=== PATIENT | female | born 1965 | race Caucasian/White ===

== ENCOUNTER 2017-05-25 11:42 | Emergency (ER) | payer OTHER, MEDICARE, SELFPAY ==
[2017-05-25 11:50] VITALS: BP 134/88; PULSE 102; RESP 20; TEMP 37.1; O2SAT 94; BMI 44.8
[2017-05-25 11:56] LABS: POC Glucose,Bedside 520 mg/dL
--- NOTE | 2017-05-25 11:58 | XR_ITS ---
XR chest 2V HISTORY: Productive cough, elevated glucose ITS.REASON: ELEVATED GLUCOSE ORDERING PHYSICIAN: Serina Phillips MD PATIENT AGE: 52 years COMPARISON: 02/26/2015 FINDINGS: The cardiomediastinal silhouette and pulmonary vascularity are within normal limits. The lungs are clear without infiltrates, suspicious nodules, or pleural effusions. There is been prior injury cervical disc fusion with bone plate present over the lower cervical spine. On the lateral view there is a metallic density overlying the mid aspect of the chest at the level the diaphragm which may be due to overlying artifact. Please correlate clinically No acute bony abnormalities. IMPRESSION: No acute finding
[2017-05-25 12:29] LABS: Glucose 576 mg/dL (74-106)
[2017-05-25 12:44] LABS: Microscopic, Urine URINE MICROSCOPIC (MICROSCOPIC)
[2017-05-25 12:47] LABS: Basophils % 0.5 % (0.1-2.0); Eosinophils # 0.2 K/mm3 (0.0-0.4); Eosinophils % 2.1 % (0.1-12.0); Hemoglobin 15.3 g/dL (12.2-16.2); Lymphocytes % 32.8 K/mm3 (10-50); Mean Corpuscular Hemoglobin 29.7 pg (27.0-31.2); Mean Corpuscular Volume 92.8 fl (81-99); Mean Platelet Volume 7.6 fl (7.4-10.4); Monocytes # 0.6 K/mm3 (0.1-1.0); Monocytes % 6.6 % (1.7-9.3); Neutrophils # 5.3 K/mm3 (1.8-7.8); Platelet Count 272 K/mm3 (142-424); Red Blood Count 5.17 M/mm3 (4.20-5.40); Red Cell Distribution Width 13.6 % (11.5-17.5); White Blood Count 9.2 K/mm3 (4.8-10.8)
[2017-05-25 12:47] LABS: Acetone, Serum (Rapid) Small (None Detect)
[2017-05-25 12:50] LABS: Appearance,Urine CLEAR (Clear); Bilirubin,Urine Negative (Negative); Blood, Urine TRACE-L (Negative); Color,Urine YELLOW (Yellow); Glucose,Urine (UA) 3+ (Negative); Ketones,Urine Negative (Negative); Leukocyte Esterase,Urine Negative (Negative); Nitrate,Urine Negative (Negative); Protein,Urine Negative (Negative); Specific Gravity, Urine <= 1.005 (1.005-1.030); Urobilinogen,Urine 0.2 EU/dl (0.2)
[2017-05-25 12:56] LABS: Anion Gap 16.3 mEq/L (5-15); Blood Urea Nitrogen 23 mg/dL (7-18); Calcium 10.1 mg/dL (8.5-10.1); Carbon Dioxide 25 mmol/L (21.0-32.0); Chloride 91 mmol/L (98-107); Creatinine Clearance Estimated 48 mg/ml (0-300); Creatinine,Serum 1.36 mg/dL (0.55-1.02); Estimated Glomerular Filt Rate 41 ml/min (>60); GFR (African American) 49 ML/MIN (>60); Potassium 4.3 mmoL/L (3.5-5.1); Sodium 128 mmol/L (136-145)
[2017-05-25 12:57] LABS: Alanine Aminotransferase 27 U/L (12-78); Albumin Level 4.1 gm/dL (3.4-5.0); Alkaline Phosphatase 134 U/L (46-116); Aspartate Amino Transferase 20 U/L (15-37); Bilirubin,Total 0.4 mg/dL (0.2-1.0); Creatine Kinase MB 0.6 mg/ml (0.0-3.6); Globulin 4.3 gm/dl (1.3-3.2); Total Protein,Serum 8.4 gm/dL (6.4-8.2); Troponin I < 0.02 ng/ml (0.00-0.06)
[2017-05-25 12:58] LABS: CKMB Relative Index 1.2 U/L (0-4.0); Creatine Kinase 50 U/L (26-140)
[2017-05-25 13:14] LABS: Bacteria,Urine Trace /lpf; RBC,Urine Occasional #/hpf (0-3); Squamous Epithelial Cell,Urine Occasional #/hpf (0-5)
--- NOTE | 2017-05-25 14:44 | PC.NURSE ---
Finger stick glucose 418. advised of result.
[2017-05-25 14:47] LABS: POC Glucose,Bedside 408 mg/dL
--- NOTE | 2017-05-25 15:04 | HMH.EDGENADL ---
ED Disposition Clinical Impression: Hyperglycemia due to type 2 diabetes mellitus, Influenza A Disposition: Home, Self-Care Condition on Discharge: Good Additional Instructions: Push fluids, continue your Januvia, see your family practitioner in one day for recheck Referrals: Shikha Grimm APRN [Primary Care Provider] - - Critical Care Critical Care Time: No Attestation: On 05/25/17, the high probability of a clinically significant, sudden or life threatening deterioration of the following system(s) required my full and direct attention, intervention and personal management. The time I documented below is in addition to time spent performing reported procedures but includes the following listed in this critical care notation. Medical Decision Making Vital Signs: 05/25/17 11:50 Temperature 98.8 F Temperature Source Oral Pulse Rate [Right Radial] 102 H Respiratory Rate 20 Blood Pressure [Right Arm] 134/88 Blood Pressure Mean [Right Arm] 103 Blood Pressure Source [Right Arm] Automatic Cuff Blood Pressure Position [Right Arm] Sitting 02 Sat by Pulse Oximetry 94 L Oxygen Delivery Method Room Air - Lab Data Lab Results 05/25/17 11:47: POC Glucose 520 05/25/17 11:53: WBC 9.2, RBC 5.17, Hgb 15.3, Hct 48.0 H, MCV 92.8, MCH 29.7, MCHC 32.0, RDW 13.6, Plt Count 272, MPV 7.6, Neut % (Auto) 58.0, Lymph % (Auto) 32.8, [place] % (Auto) 6.6, Eos % (Auto) 2.1, Baso % (Auto) 0.5, Neut # (Auto) 5.3, Lymph # (Auto) 3.0, [place] # (Auto) 0.6, Eos # (Auto) 0.2, Baso # (Auto) 0.0 05/25/17 11:56: Sodium 128 L, Potassium 4.3, Chloride 91 L, Carbon Dioxide 25, Anion Gap 16.3 H, BUN 23 H, Creatinine 1.36 H, Estimated Creat Clear 48, Estimated GFR 41 L, Est GFR ( Amer) 49 L, Glucose 576 H*, Fasting Glucose Cancelled, Calcium 10.1, Total Bilirubin 0.4, AST 20, ALT 27, Alkaline Phosphatase 134 H, Total Creatine Kinase 50, CK-MB (CK-2) 0.6, CK-MB (CK-2) Rel Index 1.2, Troponin I < 0.02, Total Protein 8.4 H, Albumin 4.1, Globulin 4.3 H, Albumin/Globulin Ratio 1.0 L, Acetone Level Small 05/25/17 12:30: Urine Color Yellow, Urine Appearance Clear, Urine pH 6.0, Ur Specific [place] <= 1.005, Urine Protein Negative, Urine Glucose (UA) 3+, Urine Ketones Negative, Urine Blood Trace-l, Urine Nitrate Negative, Urine Bilirubin Negative, Urine Urobilinogen 0.2, Ur Leukocyte Esterase Negative, Urine RBC Occasional, Ur Squamous Epith Cells Occasional, Urine Bacteria Trace 05/25/17 13:50: Influenza Type A Ag Positive A, Influenza Type B Ag Negative 05/25/17 14:37: POC Glucose 408 Result diagrams: 05/25/17 11:53 05/25/17 11:56 Orders (Tests/Meds): ED MEDICATIONS Generic Name Dose Route Start Last Admin Trade Name Freq PRN Reason Stop Dose Admin Sodium Chloride 10 ml 05/25/17 11:55 Saline Flush 10ml Syringe IV 06/24/17 11:54 NEEDED PRN Maintain IV Site Discontinued Medications Generic Name Dose Route Start Last Admin Trade Name Freq PRN Reason Stop Dose Admin Sodium Chloride 1,000 mls @ 999 mls/hr 05/25/17 12:15 05/25/17 12:07 Sod Chloride 0.9% 1000ml Bag IV 05/25/17 13:15 999 mls/hr .Q1H1M ASCENCION Administration ORDERS Category Date Time Status POC Glucose,Bedside Stat Lab 05/25/17 14:42 Ordered - Radiology Data #1 Image(s): Chest Image Reviewed: Yes I reviewed the patient's radiology results, Yes I have reviewed radiologist's interpretation Preliminary Findings: Normal/NAD, Normal Lung Inflation [place] - [place] Inquiry Pt receiving controlled substance: No Medical Decision Making Narrative: Aggressive IVF, patient stable, recheck FSBS is in the low 400's; bicarb normal so will d/c even though she has small ketones. Source of fever is influenza A; sx x five days so not a candidate for Tamiflu, september f/u PCP. General Adult HPI - General Chief complaint: Hyper/Hypoglycemia Stated complaint: BLOOD SUGAR HIGH Time Seen by Provider: 05/25/17 12:35 Mode of Arrival: Ambulatory
--- NOTE | 2017-05-25 15:07 | ED_ITS ---
ED Disposition Clinical Impression: Hyperglycemia due to type 2 diabetes mellitus, Influenza A Disposition: Home, Self-Care Condition on Discharge: Good Additional Instructions: Push fluids, continue your Januvia, see your family practitioner in one day for recheck Referrals: Shikha Grimm APRN [Primary Care Provider] - - Critical Care Critical Care Time: No Attestation: On 05/25/17, the high probability of a clinically significant, sudden or life threatening deterioration of the following system(s) required my full and direct attention, intervention and personal management. The time I documented below is in addition to time spent performing reported procedures but includes the following listed in this critical care notation. Medical Decision Making Vital Signs: 05/25/17 11:50 Temperature 98.8 F Temperature Source Oral Pulse Rate [Right Radial] 102 H Respiratory Rate 20 Blood Pressure [Right Arm] 134/88 Blood Pressure Mean [Right Arm] 103 Blood Pressure Source [Right Arm] Automatic Cuff Blood Pressure Position [Right Arm] Sitting 02 Sat by Pulse Oximetry 94 L Oxygen Delivery Method Room Air - Lab Data Lab Results 05/25/17 11:47: POC Glucose 520 05/25/17 11:53: WBC 9.2, RBC 5.17, Hgb 15.3, Hct 48.0 H, MCV 92.8, MCH 29.7, MCHC 32.0, RDW 13.6, Plt Count 272, MPV 7.6, Neut % (Auto) 58.0, Lymph % (Auto) 32.8, [place] % (Auto) 6.6, Eos % (Auto) 2.1, Baso % (Auto) 0.5, Neut # (Auto) 5.3 , Lymph # (Auto) 3.0, [place] # (Auto) 0.6, Eos # (Auto) 0.2, Baso # (Auto) 0.0 05/25/17 11:56: Sodium 128 L, Potassium 4.3, Chloride 91 L, Carbon Dioxide 25, Anion Gap 16.3 H, BUN 23 H, Creatinine 1.36 H, Estimated Creat Clear 48, Estimated GFR 41 L, Est GFR ( Amer) 49 L, Glucose 576 H*, Fasting Glucose Cancelled, Calcium 10.1, Total Bilirubin 0.4, AST 20, ALT 27, Alkaline Phosphatase 134 H, Total Creatine Kinase 50, CK-MB (CK-2) 0.6, CK-MB (CK-2) Rel Index 1.2, Troponin I < 0.02, Total Protein 8.4 H, Albumin 4.1, Globulin 4.3 H, Albumin/Globulin Ratio 1.0 L, Acetone Level Small 05/25/17 12:30: Urine Color Yellow, Urine Appearance Clear, Urine pH 6.0, Ur Specific [place] <= 1.005, Urine Protein Negative, Urine Glucose (UA) 3+, Urine Ketones Negative, Urine Blood Trace-l, Urine Nitrate Negative, Urine Bilirubin Negative, Urine Urobilinogen 0.2, Ur Leukocyte Esterase Negative, Urine RBC Occasional, Ur Squamous Epith Cells Occasional, Urine Bacteria Trace 05/25/17 13:50: Influenza Type A Ag Positive A, Influenza Type B Ag Negative 05/25/17 14:37: POC Glucose 408 Result diagrams: 05/25/17 11:53 05/25/17 11:56 Orders (Tests/Meds): ED MEDICATIONS Generic Name Dose Route Start Last Admin Trade Name Freq PRN Reason Stop Dose Admin Sodium Chloride 10 ml 05/25/17 11:55 Saline Flush 10ml Syringe IV 06/24/17 11:54 NEEDED PRN Maintain IV Site Discontinued Medications Generic Name Dose Route Start Last Admin Trade Name Freq PRN Reason Stop Dose Admin Sodium Chloride 1,000 mls @ 999 mls/hr 05/25/17 12:15 05/25/17 12:07 Sod Chloride 0.9% 1000ml Bag IV 05/25/17 13:15 999 mls/hr .Q1H1M ASCENCION Administration ORDERS Category Date Time Status POC Glucose,Bedside Stat Lab 05/25/17 14:42 Ordered - Radiology Data #1 Image(s): Chest Image Reviewed: Yes I reviewed the pat
[2017-05-25 15:40] VITALS: BP 138/68; PULSE 82; RESP 18; TEMP 36.9; O2SAT 97
== END 2017-05-25 15:42 | disposition home or self-care (01) ==
PROVIDERS: Emergency Provider Emergency Medicine; Family Provider Nurse Practitioner Family; PCP Nurse Practitioner Family
DX: E11.65 Type 2 diabetes mellitus with hyperglycemia (principal); Z79.84 Long term (current) use of oral hypoglycemic drugs; J10.1 Influenza due to other identified influenza virus with other respiratory manifestations; M06.9 Rheumatoid arthritis, unspecified; Z79.899 Other long term (current) drug therapy
CPT/HCPCS: 71046; 80053; 81001; 82009; 82550; 82553; 82962; 84484; 85025; 87275; 87276; 99284

== ENCOUNTER → 2017-08-07 10:40 | Outpatient (CLI) | payer OTHER, MEDICARE, SELFPAY ==
--- NOTE | 2017-08-07 10:51 | XR_ITS ---
XR ankle LT min 3V COMPARISON: None HISTORY: Left ankle pain TECHNIQUE: AP lateral and oblique views FINDINGS: There is mild narrowing of the ankle mortise medially. There is mild spurring of the tip of the lateral malleolus. There is a moderate-sized os trigonum noted. There are prominent spurs of the calcaneus both at the insertion of Achilles tendon and lateral tendon. There is [id number] generalized soft tissue swelling about the ankle. IMPRESSION: Soft tissue swelling and mild posttraumatic and/or arthritic changes of the ankle joint, no acute fracture seen
== END ==
PROVIDERS: PCP Internal Medicine Adolescent Medicine; Visit Provider Nurse Practitioner Family
DX: M25.571 Pain in right ankle and joints of right foot (principal); G89.29 Other chronic pain
CPT/HCPCS: 73610

== ENCOUNTER → 2017-08-08 07:57 | Outpatient (CLI) | payer OTHER, MEDICARE, SELFPAY ==
[2017-08-08 09:02] LABS: Basophils # 0.1 K/mm3 (0-0.2); Basophils % 0.9 % (0.1-2.0); Eosinophils # 0.6 K/mm3 (0.0-0.4); Eosinophils % 8.2 % (0.1-12.0); Hematocrit 43.9 % (37.0-47.0); Hemoglobin 14.3 g/dL (12.2-16.2); Lymphocytes # 1.9 K/mm3 (0.7-4.5); Lymphocytes % 26.6 K/mm3 (10-50); Mean Corpuscular HGB Conc 32.7 g/dL (31.8-35.4); Mean Corpuscular Hemoglobin 30.1 pg (27.0-31.2); Mean Corpuscular Volume 91.9 fl (81-99); Mean Platelet Volume 7.1 fl (7.4-10.4); Monocytes # 0.3 K/mm3 (0.1-1.0); Neutrophils # 4.3 K/mm3 (1.8-7.8); Neutrophils % 60.3 % (37.0-80.0); Platelet Count 311 K/mm3 (142-424); Red Blood Count 4.77 M/mm3 (4.20-5.40); Red Cell Distribution Width 13.9 % (11.5-17.5); White Blood Count 7.2 K/mm3 (4.8-10.8)
[2017-08-08 09:07] LABS: Alanine Aminotransferase 26 U/L (12-78); Albumin Level 3.7 gm/dL (3.4-5.0); Alkaline Phosphatase 93 U/L (46-116); Anion Gap 12.9 mEq/L (5-15); Aspartate Amino Transferase 24 U/L (15-37); Bilirubin,Total 0.3 mg/dL (0.2-1.0); Blood Urea Nitrogen 20 mg/dL (7-18); Calcium 9.6 mg/dL (8.5-10.1); Carbon Dioxide 27 mmol/L (21.0-32.0); Chloride 104 mmol/L (98-107); Chol/HDL Ratio 3.9 (1-3.5); Cholesterol 155 mg/dL (140-200); Creatinine,Serum 0.94 mg/dL (0.55-1.02); Estimated Glomerular Filt Rate 62 ml/min (>60); GFR (African American) 75 ML/MIN (>60); Globulin 3.7 gm/dl (1.3-3.2); Glucose 199 mg/dL (74-106); HDL Cholesterol 40 mg/dL (29-89); LDL Cholesterol 77 mg/dL (0-130); Potassium 3.9 mmoL/L (3.5-5.1); Sodium 140 mmol/L (136-145); Total Protein,Serum 7.4 gm/dL (6.4-8.2); Triglycerides 190 mg/dL (30-200); VLDL Cholesterol 38 mg/dL (0-40)
[2017-08-08 09:54] LABS: Erythrocyte Sedimentation Rate 12 mm/hr (0-30)
[2017-08-08 09:57] LABS: C-Reactive Protein 0.9 mg/L (0.0-0.9)
[2017-08-08 10:16] LABS: Hemoglobin A1C 9.1 % (0.0-7.0)
[2017-08-09 11:18] LABS: Creatinine, Urine 66.3 mg/dL (Not Estab.); Microalbumin, Urine 4.5 ug/mL (Not Estab.)
== END ==
PROVIDERS: Internal Medicine; Visit Provider Nurse Practitioner Family
DX: E11.65 Type 2 diabetes mellitus with hyperglycemia (principal); M25.572 Pain in left ankle and joints of left foot; M05.79 Rheumatoid arthritis with rheumatoid factor of multiple sites without organ or systems involvement; Z79.52 Long term (current) use of systemic steroids; Z79.899 Other long term (current) drug therapy
CPT/HCPCS: 36415; 80053; 80061; 82043; 82570; 83036; 84550; 85025; 85651; 86140

== ENCOUNTER → 2017-08-16 09:24 | Outpatient (CLI) | payer OTHER, MEDICARE, SELFPAY ==
--- NOTE | 2017-08-16 09:28 | MR_ITS ---
MR ankle LT wo con HISTORY: Left ankle pain and swelling medial and laterally. Pain when flexing and extending foot ITS.REASON: PAIN IN LEFT ANKLE AND JOINT ORDERING PHYSICIAN: Shikha Grimm PATIENT AGE: 52 years COMPARISON: Radiograph of 08/07/2017 TECHNIQUE: Standard multiplanar multiecho sequences are performed without contrast. FINDINGS: Osteoarthritic changes are present involving the ankle included in prominence spur at the distal and anterior aspect of the tibia. Abnormal signal intensity involves the posterior distal aspect of the tibia at the subarticular region measuring 8 mm hypointense on T1 becoming hyperintense on T2 consistent with an area of bone marrow edema with some cystic area centrally consistent with an area of ostial chondrosis versus a developing subarticular cyst. There are mild osteoarthritic changes of the ankle joint. Small amount fluid is present in the ankle joint mostly along the anterior aspect of the tibiotalar region. The anterior talofibular ligament is not identified consistent with a tear of the ATFL. The deltoid ligament appears intact. There is irregular signal intensity posterior to the ankle joint. This could represent an irregular os trigonum. The appearance however is somewhat irregular. Displaced bony fragment is an additional consideration however, the donor site is not apparent. Consider CT of the ankle for further evaluation.. A moderate amount fluid is present along the posterior aspect of the ankle joint at the talocalcaneal region. There is also some increased T2 signal involving the prominent anterior tibial spur. The posterior tibiofibular ligament appears intact. The anterior tibiofibular ligament also appears intact. Mild widening of the space between the lateral aspect of the talus and the fibula is fluid in this region. IMPRESSION: 1. Moderate osteoarthritic changes of the ankle with ankle joint effusion. 2. Abnormal signal intensity of the subarticular region of the posterior distal tibia which could represent an area of osteonecrosis versus developing subarticular cystic change 3. 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 Irregular apparent solid what appears to represent an os trigone in with fluid in this area possibly related to a displaced bone fragment. Consider CT of the ankle for further evaluation
== END ==
PROVIDERS: Family Provider Nurse Practitioner Family; PCP Internal Medicine Adolescent Medicine; Visit Provider Nurse Practitioner Family
DX: M25.572 Pain in left ankle and joints of left foot (principal)
CPT/HCPCS: 73721

== ENCOUNTER → 2017-09-05 16:58 | Outpatient (CLI) | payer OTHER, MEDICARE, SELFPAY ==
--- NOTE | 2017-09-05 17:01 | XR_ITS ---
XR ankle wt bearing LT min 3V HISTORY: Ankle pain ORDERING PHYSICIAN: Janice Mooney DPM PATIENT AGE: 52 years COMPARISON: 08/07/2017 FINDINGS: Weightbearing views are performed There is tilt of the talus with the lateral aspect of the talus tilted distally. Bony sclerosis involves the medial aspect of the talotibial joint. There is decrease in joint space anteriorly with hypertrophic changes of the distal tibia and talar joint anteriorly.. There is an irregular calcific density posterior to the calcaneus measuring 11 mm and could represent a irregular os trigonum or bone fragment. Consider CT of the ankle for further evaluation. Overall no change from 08/07/2017. IMPRESSION: 1. Osteoarthritis of the ankle with talar tilt and bony sclerosis of the medial aspect of the tibiotalar joint 2. Irregular os trigonum versus bone fragment posteriorly
--- NOTE | 2017-09-05 17:01 | XR_ITS ---
XR ankle wt bearing RT min 3V HISTORY: Ankle pain ORDERING PHYSICIAN: Janice Mooney DPM PATIENT AGE: 52 years COMPARISON: None FINDINGS: No fracture or dislocation. There are mild osteoarthritic changes of the ankle joint anteriorly. A small os trigonum is noted. IMPRESSION: Mild osteoarthritis
== END ==
PROVIDERS: PCP Internal Medicine Adolescent Medicine; Visit Provider Podiatrist
DX: M79.673 Pain in unspecified foot (principal)
CPT/HCPCS: 73610

== ENCOUNTER → 2017-11-14 09:29 | Outpatient (CLI) | payer OTHER, MEDICARE, SELFPAY ==
[2017-11-14 09:55] LABS: Basophils # 0.1 K/mm3 (0-0.2); Basophils % 0.8 % (0.1-2.0); Eosinophils # 0.4 K/mm3 (0.0-0.4); Eosinophils % 5.4 % (0.1-12.0); Hemoglobin 15.1 g/dL (12.2-16.2); Lymphocytes # 2.8 K/mm3 (0.7-4.5); Lymphocytes % 36.3 K/mm3 (10-50); Mean Corpuscular HGB Conc 30.7 g/dL (31.8-35.4); Mean Corpuscular Hemoglobin 28.2 pg (27.0-31.2); Mean Corpuscular Volume 91.9 fl (81-99); Monocytes # 0.5 K/mm3 (0.1-1.0); Monocytes % 6.2 % (1.7-9.3); Neutrophils # 3.9 K/mm3 (1.8-7.8); Neutrophils % 51.4 % (37.0-80.0); Platelet Count 320 K/mm3 (142-424); Red Blood Count 5.33 M/mm3 (4.20-5.40); Red Cell Distribution Width 14.6 % (11.5-17.5); White Blood Count 7.6 K/mm3 (4.8-10.8)
[2017-11-14 10:46] LABS: Erythrocyte Sedimentation Rate 9 mm/hr (0-30)
[2017-11-14 11:14] LABS: Alanine Aminotransferase 25 U/L (12-78); Albumin Level 3.9 gm/dL (3.4-5.0); Albumin/Globulin Ratio 1.1 (1.1-1.8); Alkaline Phosphatase 86 U/L (46-116); Anion Gap 13.1 mEq/L (5-15); Aspartate Amino Transferase 26 U/L (15-37); Bilirubin,Total 0.4 mg/dL (0.2-1.0); Blood Urea Nitrogen 20 mg/dL (7-18); Calcium 9.5 mg/dL (8.5-10.1); Carbon Dioxide 26 mmol/L (21.0-32.0); Chloride 105 mmol/L (98-107); Estimated Glomerular Filt Rate 58 ml/min (>60); GFR (African American) 70 ML/MIN (>60); Globulin 3.5 gm/dl (1.3-3.2); Glucose 159 mg/dL (74-106); Potassium 4.1 mmoL/L (3.5-5.1); Sodium 140 mmol/L (136-145); Total Protein,Serum 7.4 gm/dL (6.4-8.2)
[2017-11-14 11:15] LABS: C-Reactive Protein < 0.2 mg/L (0.0-0.9)
[2017-11-15 20:40] LABS: Hemoglobin A1C 6.8 % (0.0-7.0)
== END ==
PROVIDERS: Visit Provider Internal Medicine
DX: Z79.899 Other long term (current) drug therapy (principal); Z79.52 Long term (current) use of systemic steroids; M05.9 Rheumatoid arthritis with rheumatoid factor, unspecified; M79.7 Fibromyalgia
CPT/HCPCS: 36415; 80053; 83036; 85025; 85651; 86140

== ENCOUNTER 2017-12-14 10:00 | Outpatient (RCR) | payer OTHER, MEDICARE, SELFPAY ==
--- NOTE | 2017-10-10 10:11 | HMH.PTOPEV ---
PT Outpatient Evaluation Rehab PT Outpatient Evaluation Start: 10/10/17 09:33 Freq: Status: Active Protocol: Document 10/10/17 10:02 HUMBERTO (Rec: 10/10/17 10:11 HUMBERTO [id number]) Electronically Signed By Kilo Gordon, PT 10/10/17 10:02 Outpatient Therapy Subjective History Subjective History Pt reports h/o chronic L ankle pain for ~1 yr. Pt reports MRI and Xrays of L ankle have revealed OA changes, and ATF damage leading to pain and instability. Pt reports constant severe L ankle pain before recent injection 'block , cortizone, I think'. Chief Complaint Pain Clicks Swelling Gives out/Unstable Weakness Symptom Type Ache Throb Dull Symptoms Relieved By Rest/Positioning Ice Prescription Meds Symptoms Aggravated By Standing Walking Prior Functional Limitations Housework Standing Walking Current Functional Limitations Housework Standing Walking Stairs Symptom Description Constant but Variable Level of pain today (0-10) 2 Pain scale - at its best (0-10) 2 Pain scale - at its worst (0-10) 10 Ankle/Foot Eval Gait Observation General Gait Pattern Observation Antalgic Gait Palpation Tenderness left Ankle/Foot Palpation Findings Tenderness Ankle/Foot Palpation Overall Comment 3/4 ATF TTP positive PTF TTP positive CF TTP positive Deltoid ligament TTP positive ROM right Ankle/Foot Dorsiflexion w/Knee Extended 0-15 Active Range Motion (degrees) Ankle/Foot Plantar Flexion Active Range 0-50 of Motion (degrees) Ankle/Foot Eversion Active Range of 0-25 Motion (degrees) Ankle/Foot Inversion Active Range of 0-40 Motion (degrees) Ankle/Foot ROM Reason Not Measured Within Functional Limits left Ankle/Foot Dorsiflexion w/Knee Extended 0-10 Active Range Motion (degrees) Ankle/Foot Plantar Flexion Active Range 0-38 of Motion (degrees) Ankle/Foot Eversion Active Range of 0-10 Motion (degrees) Ankle/Foot Inversion Active Range of
--- NOTE | 2017-11-14 10:39 | HMH.RHREAS ---
Rehab Reassessment Rehab OP Re-assessment Start: 11/14/17 10:30 Freq: Status: Active Protocol: Document 11/14/17 10:31 HUMBERTO (Rec: 11/14/17 10:38 HUMBERTO [id number]) Electronically Signed By Kilo Gordon, PT 11/14/17 10:31 Rehab Re-assessment Subjective Subjective Pt reports improved L ankle pain @3-4/10 on VAS, and feels 70% better since I EVAL Objective Objective Notes AROM L ANKLE DF 0-15, PF 0-45, INV 0-50, EVR 0-20 MMT L ANKLE DF 4+/5, PF 4+/5, INV 4/5, EVR 4-/5 TTP L ATF 2/4, CF 3/4 Assessment Progress Assessment Progressing as Expected Assessment Notes PT W/IMPROVED ROM, AND STRENGTH Patient goals met STG'S 10/27 LTG'S 05/30 Goals Not Met STG 06/29 LTG 12/28 Plan Plan Pt to cont. w/skilled PT to make further improvements w/ ROM, strength, and TTP to allow for opitmal function Frequency of Therapy 1-2x/wk Duration of therapy 3-4 wks Time and Billing Re-Eval Time 15 Re-Eval Billing Units 1 PHYSICIAN CERTIFICATION: I certify the specified therapy services for Neeru Samano are required, authorized, and reviewed every 30 days.
== END 2017-12-14 10:01 | disposition home or self-care (01) ==
LOC: PT 10:00
PROVIDERS: Family Provider Nurse Practitioner Family; PCP Internal Medicine Adolescent Medicine; Visit Provider Podiatrist
DX: M25.372 Other instability, left ankle (principal)
CPT/HCPCS: 97010; 97014; 97016; 97033; 97035; 97110; 97112; 97140; 97163; 97164; 97760; G0283

== ENCOUNTER → 2018-03-20 09:40 | Outpatient (CLI) | payer OTHER, MEDICARE, SELFPAY ==
[2018-03-20 10:10] LABS: Basophils # 0.1 K/mm3 (0-0.2); Basophils % 0.8 % (0.1-2.0); Eosinophils # 0.3 K/mm3 (0.0-0.4); Eosinophils % 4.5 % (0.1-12.0); Hematocrit 42.6 % (37.0-47.0); Hemoglobin 13.8 g/dL (12.2-16.2); Lymphocytes # 2.3 K/mm3 (0.7-4.5); Lymphocytes % 34.6 K/mm3 (10-50); Mean Corpuscular HGB Conc 32.4 g/dL (31.8-35.4); Mean Corpuscular Hemoglobin 29.3 pg (27.0-31.2); Mean Corpuscular Volume 90.6 fl (81-99); Mean Platelet Volume 6.5 fl (7.4-10.4); Monocytes # 0.4 K/mm3 (0.1-1.0); Monocytes % 5.6 % (1.7-9.3); Neutrophils # 3.7 K/mm3 (1.8-7.8); Neutrophils % 54.6 % (37.0-80.0); Platelet Count 305 K/mm3 (142-424); Red Cell Distribution Width 15.5 % (11.5-17.5); White Blood Count 6.7 K/mm3 (4.8-10.8)
[2018-03-20 10:27] LABS: Hemoglobin A1C 6.6 % (0.0-7.0)
[2018-03-20 10:37] LABS: Chol/HDL Ratio 3.4 (1-3.5); Cholesterol 158 mg/dL (140-200); HDL Cholesterol 47 mg/dL (29-89); LDL Cholesterol 67 mg/dL (0-130); Triglycerides 220 mg/dL (30-200); VLDL Cholesterol 44 mg/dL (0-40)
[2018-03-20 11:03] LABS: Alanine Aminotransferase 21 U/L (12-78); Albumin Level 3.8 gm/dL (3.4-5.0); Albumin/Globulin Ratio 1.1 (1.1-1.8); Alkaline Phosphatase 81 U/L (46-116); Anion Gap 14.9 mEq/L (5-15); Aspartate Amino Transferase 20 U/L (15-37); Bilirubin,Total 0.5 mg/dL (0.2-1.0); Blood Urea Nitrogen 19 mg/dL (7-18); Calcium 9.4 mg/dL (8.5-10.1); Carbon Dioxide 27 mmol/L (21.0-32.0); Chloride 104 mmol/L (98-107); Creatinine,Serum 0.91 mg/dL (0.55-1.02); Estimated Glomerular Filt Rate 65 ml/min (>60); GFR (African American) 78 ML/MIN (>60); Globulin 3.5 gm/dl (1.3-3.2); Glucose 140 mg/dL (74-106); Potassium 3.9 mmoL/L (3.5-5.1); Sodium 142 mmol/L (136-145); Total Protein,Serum 7.3 gm/dL (6.4-8.2)
[2018-03-20 11:11] LABS: C-Reactive Protein < 0.2 mg/L (0.0-0.9)
[2018-03-20 13:23] LABS: Erythrocyte Sedimentation Rate 10 mm/hr (0-30)
== END ==
PROVIDERS: Nurse Practitioner Family; PCP Internal Medicine Adolescent Medicine; Visit Provider Internal Medicine
DX: E78.2 Mixed hyperlipidemia (principal); E11.9 Type 2 diabetes mellitus without complications; M05.79 Rheumatoid arthritis with rheumatoid factor of multiple sites without organ or systems involvement; D89.9 Disorder involving the immune mechanism, unspecified; M05.9 Rheumatoid arthritis with rheumatoid factor, unspecified; M79.7 Fibromyalgia; Z79.52 Long term (current) use of systemic steroids; Z79.899 Other long term (current) drug therapy
CPT/HCPCS: 36415; 80053; 80061; 83036; 85025; 85651; 86140

== ENCOUNTER → 2018-03-22 11:38 | Outpatient (CLI) | payer OTHER, MEDICARE, SELFPAY ==
--- NOTE | 2018-03-22 11:44 | XR_ITS ---
XR foot wt bearing RT 3V HISTORY: ITS.REASON: pain ORDERING PHYSICIAN: Janice Mooney DPM PATIENT AGE: 52 years COMPARISON: None FINDINGS: No fracture or dislocation. No lytic or blastic change. There is normal mineralization.. The joint spaces are well-preserved. There are mild hypertrophic changes along the anterior aspect of the distal tibia and the neck of the talus anteriorly. Small calcaneal spur is also present. IMPRESSION: Hypertrophic changes of the dorsal aspect of the talus and the distal tibia otherwise negative
--- NOTE | 2018-03-22 11:44 | XR_ITS ---
XR foot wt bearing LT 3V HISTORY: ITS.REASON: pain ORDERING PHYSICIAN: Janice Mooney DPM PATIENT AGE: 52 years COMPARISON: None FINDINGS: No fracture or dislocation. No lytic or blastic change. There is normal mineralization.. The joint spaces are well-preserved. There are hypertrophic changes of the anterior and distal tibia. Coarse calcification noted in the distal aspect of the tibia posteriorly consistent with an os trigonium with some irregularity of this ossicle. IMPRESSION: Degenerative changes, no acute finding
--- NOTE | 2018-03-22 11:44 | XR_ITS ---
XR ankle wt bearing RT min 3V HISTORY: ITS.REASON: pain ORDERING PHYSICIAN: Janice Mooney DPM PATIENT AGE: 52 years Comparison: 09/05/2017 FINDINGS: There are mild hypertrophic changes at the distal aspect of the medial malleolus and at the anterior distal tibia. No fracture or dislocation. No lytic or blastic change. The talar dome has an unremarkable appearance. IMPRESSION: Mild degenerative changes with bony hypertrophy of the medial malleolus and the anterior distal tibia as well as the neck of the talus anteriorly otherwise negative
--- NOTE | 2018-03-22 11:44 | XR_ITS ---
XR ankle wt bearing LT min 3V HISTORY: ITS.REASON: pain ORDERING PHYSICIAN: Janice Mooney DPM PATIENT AGE: 52 years Comparison: 09/05/2017 FINDINGS: Osteoarthritic changes are present at the ankle joint medially with loss of the joint space along the medial malleolus region and medial aspect of the talus. The talus is tilted being slightly inverted. There is some sclerosis of the talar dome and the distal aspect of the tibia. There is decrease in the ankle joint space with bony hypertrophy of the anterior distal tibia also with hypertrophic changes at the fibula talar junction. IMPRESSION: Osteoarthritis of the ankle as described above with inversion of the talus not significantly changed
== END ==
PROVIDERS: PCP Internal Medicine Adolescent Medicine; Visit Provider Podiatrist
DX: M25.572 Pain in left ankle and joints of left foot (principal); M79.672 Pain in left foot
CPT/HCPCS: 73610; 73630

== ENCOUNTER → 2018-03-30 10:54 | Outpatient (CLI) | payer OTHER, MEDICARE, SELFPAY ==
--- NOTE | 2018-03-30 10:56 | MM_ITS ---
MM Dig screening mamm BI w/CAD ORDERING PHYSICIAN : Shikha Grimm PATIENT AGE: 52 years GENDER: Female COMPARISON: September 2016, 2014bilateral digital mammogram ., February 2006 film screen mammogram INDICATION: ITS.REASON: SCREENING no hormones. No new complaints. Noncontributory family history. TECHNIQUE: Standard CC and MLO images were obtained. R2 CAD reviewed. FINDINGS: Low-density breast with diffuse generalized fatty replacement. No mass lesion evident. No Suspicious mass. No dominant mass nor suspicious calcifications either breast. No new areas of concern. Bilateral follow-up in one year adequate. CAD computer review highlights no areas of concern either . IMPRESSION: ...... Stable bilateral mammogram.. No areas of concern Low-density breast with generalized fatty replacement. Bilateral follow-up one year recommended. BI-RADS Category: 1 Negative RECOMMENDED FOLLOW-UP: 1YR 1 YEAR FOLLOW-UP (A letter has been sent to the patient regarding results of the study.)
== END ==
PROVIDERS: PCP Nurse Practitioner Family; Visit Provider Nurse Practitioner Family
DX: Z12.31 Encounter for screening mammogram for malignant neoplasm of breast (principal)
CPT/HCPCS: 77067

== ENCOUNTER → 2018-05-01 12:04 | Outpatient (CLI) | payer OTHER, MEDICARE, SELFPAY ==
--- NOTE | 2018-05-01 12:49 | XR_ITS ---
XR chest 2V HISTORY: ITS.REASON: HTN, PREOP ORDERING PHYSICIAN: Janice Mooney DPM PATIENT AGE: 52 years COMPARISON: 05/25/2017 FINDINGS: The cardiomediastinal silhouette and pulmonary vascularity are within normal limits. The lungs are clear without infiltrates, suspicious nodules, or pleural effusions. No acute bony abnormalities. IMPRESSION: Negative chest, no acute finding
[2018-05-01 13:09] LABS: INR 0.95 (0.9-1.1); Prothrombin Time 9.8 seconds (9.4-11.8)
[2018-05-01 13:10] LABS: Blood Urea Nitrogen 23 mg/dL (7-18); Calcium 9.6 mg/dL (8.5-10.1); Carbon Dioxide 30 mmol/L (21.0-32.0); Chloride 102 mmol/L (98-107); Creatinine,Serum 0.96 mg/dL (0.55-1.02); Estimated Glomerular Filt Rate 61 ml/min (>60); GFR (African American) 74 ML/MIN (>60); Glucose 128 mg/dL (74-106); Sodium 139 mmol/L (136-145)
[2018-05-01 13:14] LABS: Hemoglobin A1C 6.6 % (0.0-7.0)
[2018-05-01 13:36] LABS: Basophils # 0.1 K/mm3 (0-0.2); Basophils % 0.8 % (0.1-2.0); Eosinophils # 0.4 K/mm3 (0.0-0.4); Hemoglobin 13.8 g/dL (12.2-16.2); Lymphocytes # 3.2 K/mm3 (0.7-4.5); Lymphocytes % 35.6 % (10-50); Mean Corpuscular HGB Conc 31.4 g/dL (31.8-35.4); Mean Corpuscular Hemoglobin 28.6 pg (27.0-31.2); Mean Corpuscular Volume 91.4 fl (81-99); Mean Platelet Volume 6.5 fl (7.4-10.4); Monocytes # 0.5 K/mm3 (0.1-1.0); Monocytes % 5.2 % (1.7-9.3); Neutrophils # 4.8 K/mm3 (1.8-7.8); Neutrophils % 54.4 % (37.0-80.0); Platelet Count 340 K/mm3 (142-424); Red Blood Count 4.82 M/mm3 (4.20-5.40); White Blood Count 8.9 K/mm3 (4.8-10.8)
[2018-05-02 10:39] LABS: Vitamin D 25 Hydroxy 22.7 ng/mL (30.0-100.0)
== END ==
PROVIDERS: PCP Internal Medicine Adolescent Medicine; Visit Provider Podiatrist
DX: Z01.818 Encounter for other preprocedural examination (principal); M19.072 Primary osteoarthritis, left ankle and foot
CPT/HCPCS: 36415; 71046; 80048; 82652; 83036; 85025; 85610; 93005

== ENCOUNTER 2018-05-30 06:05 | Observation (INO) ==
--- NOTE | 2018-05-30 07:05 | Progress Note ---
[facility] Anesthesia Checklist - Patient Identification Patient Identification: Arm Band, Verbal (Name & ) - Structural Data Admitted From: Home Planned Operative Procedure/s: Left ankle sx, achilles tendon lengthening, external fixation Consent for Planned Operative Procedure(s) Verified: Yes Verified Documents: Surgical Consent, History and Physical, Cardiac Clearance - NPO Status Verified Time NPO: 00:00 - Chart Verification Results Verified: CBC, BMP - Additional verifications Anesthesia Reactions: Yes (PONV) - Airway Assessment C-Spine Mobility Assessed: Yes TMJ Mobility Assessed: Yes Dentition: Good Dentition - Neurological Assessment Level of Consciousness: Awake Hx Seizures: No Numbness or tingling in extremities: Yes - Anesthesia Plan Anesthesia Risk discussed: Yes Anesthesia Plan: Verified ASA Class: III Anesthesia Type: General (with left popliteal nerve block and saphanous nerve block) [facility] History I have reviewed the patient's past medical history: Yes Medical History: Reports:: Atrial Fibrillation, Depression, Diabetes Mellitus Type 2, Gastroesophageal Reflux Disease(GERD), Hypertension Denies:: Cancer, Diabetes Mellitus Type 1, Internal Pacemaker, MRSA, Seizures Have you ever received a pneumonia vaccine?: No Have you received a flu vaccine this season?: Yes Other Medical History: Reports: Arthritis, Other (rheumatoid arthritis, CHEY use CPAP, morbid obesity). Denies: Blood Transfusion Reaction Laterality Cases: Right: Arthroscopy Shoulder Other Surgeries: Yes: No Previous Surgery, Cholecystectomy, Other. No: Pacemaker Amputation: No Fractures: No - *Social History Educational Level: Completed High School Smoking Status: Never smoker Alcohol Intake: never Alcohol Intake Frequency:: other Substance Use Type: denies use Occupational Status: disabled Housing: house Household Members: spouse Travel in the last 8 weeks: None - Psychiatric History Expresses thoughts of harming self/others: None Suicide Plan Description: No Plan *Family Hx:: Hyperlipidemia, Hypertension
--- NOTE | 2018-05-30 07:32 | Operative Note ---
Date of procedure: 05/30/18 Pre-op Diagnosis:: 1. Left rheumatoid arthritis 2. Left diabetic charcot neuroarthropathy 3. Left chronic ankle instability 4. Left ankle, foot synovitis 5. Left equinus deformity Post-op Diagnosis:: Same Procedure performed:: 1. Left tibio talar calcaneal (TTC) arthrodesis 2. Left tendo Achilles lengthening 3. Left ankle/foot synovectomy 4. Left application of external fixation device Surgeon:: Janice Mooney DPM Senior Qa Analyst(s):: Dr. Arabella Bravo SYBASE DEVELOPER:: Other (Zhen Walker) Anesthesia: regional, LMA Estimated blood loss (mL): 100 Clinical Note:: Ms. Samano is a 53 y/o DM female who presents for follow up of left ankle pain and chronic ankle instability. Patient suffered an ankle sprain and failed conservative care including physical therapy. There is pain 7/10. Pain is worse with balancing activity and prolonged WB. Patient wears the lace up ankle brace with activity and complains that the ankle still feels weak. Injection therapy is no longer helping. Patient is DM and has RA. In the last few months pain and swelling has worsened from the ankle to the STJ, and we have been monitoring for progressive Charcot breakdown. Patient presents for surgical planning visit. She sees Dr. Prabhakar, field cane scaler at the [facility]. We discussed long-term treatment including pain and swelling management with injections, bracing, physical therapy and topical NSAIDs. We also discussed surgical intervention. Based on her physical exam, she is very unstable and surgery is a good option to prevent further arthritis breakdown. We discussed ankle arthrodesis versus total ankle replacement. Given her current obesity, history of fibromyalgia and diabetes with neuropathy, and other comorbidities I recommended an ankle and STJ arthrodesis (TTC arthrodesis). We discussed that she may need a tibiotalar arthrodesis with an IM nail versus plating with external fixation device. X-rays and MRI reviewed and discussed with the patient. Osteoarthritic changes are present at the ankle joint medially with loss of the joint space along the medial malleolus region and medial aspect of the talus. The talus is tilted being slightly inverted. There is some sclerosis of the talar dome and the distal aspect of the tibia. There is decrease in the ankle joint space with bony hypertrophy of the anterior distal tibia also with hypertrophic changes at the fibula talar junction. Conservative treatment discussed but patient has failed. We discussed surgery. All risks and benefits were discussed including but not limited to: damage to blood vessels and nerves, bleeding, infection, wound complications, delayed union, mal or non-union of bone, post-traumatic or transfer arthritis or pain, need for further surgery, need for removal of implant, prolonged swelling of the extremity, prolonged pain, CRPS/RSD, DVT, and anesthetic complications or even . No guarantees were given. All questions fully answered. The patient verbalized understanding and agreed to proceed with surgery. Consent was obtained. Necessary labs and pre-op testing ordered: CBC, BMP, EKG, CXR, Ha1c, vitamin D, ABIs. Pt was given a e-Rx for Phenergan, vitamin D, Dulcolax and Motrin. She has crutches and walker at home. Discussed risk of DVT and PE. Patient is currently on Xarelto. Discussed doing mechanical compression postoperatively as well. We also discussed postoperative pain control. Patient already takes [place] and gabapentin for chronic pain. Discussed doing a nerve block and Percocet for postop pain. Plan surgery: 1. Left ankle arthodesis (85339) 2. Left subtalar joint arthrodesis (07194) 3. Left application of external fixation device (53984) 4. Left ankle synovectomy (38796, 25610) 5. Left tendo Achilles lengthening (24172 vs 07480) 6. Left repair of ankle ligament (84759) Operative findings:: Severe cartilage and degeneration noted to ankle and subtalar joint. Foreign material in the ankle joint likely consistent with steroid injection. Lateral ankle ligaments not visualized. Deltoid intact. Soft osteopenic bone. Operative note:: On this date and time, the patient was deemed an appropriate surgical candidate. With informed consent signed, the patient was taken to the operating theater after a pre-operative regional block was given by anesthesia. The patient was positioned supine. General anesthesia was induced. Tourniquet was applied to the left thigh. The left lower extremity was prepped and draped in normal sterile fashion. Left Tendon Achilles Lengthening: Attention was directed to the posterior leg. Three stab incisions where made overlying the Achilles. Utilizing the three small holes, meli-section of the Achilles was performed with the foot maximally dorsiflexed. Release of the Achilles contracture was noted. The incisions were flushed with copious amounts of sterile saline and the wound was closed with 3-0 Nylon. Left Tibio Talo Calcaneal (TTC) Arthrodesis: Left Ankle Arthrodesis: The tourniquet was inflated at 250 mmHg. Attention was directed to the lateral and medial leg where incisions were mapped out extending from proximal ankle to the base of the 4th metatarsal. Dissection was carried thru skin and subcutaneous tissue with care taken to maintain surgical hemostasis and safely retract neurovascular structures. Dissection was then carried through deep fascia to bone in a full thickness flap. The fibula, posterior facet of the subtalar joint and sinus tarsi were exposed. The fibula was noted to be of normal color, no signs of infection. Bone quality was poor. There was significant deformity and talar tilt noted, with no viable lateral ankle ligaments. Dissection was carried across the anterior ankle. Medial incision was made extending over the anteromedial aspect of the medial malleolus. Dissection was carried thru skin and subcutaneous tissue with care taken to maintain surgical hemostasis and safely retract neurovascular structures. Carry taken to maintain deltoid ligament intact. The fibula was osteotomized 2 cm proximal to t he ankle. The distal portion was removed and kept to use later as onlay graft. the lateral tibia. Using saw resection then with osteotome and currettes, the cartilage was removed from the ankle joint. Drill bit was used to fenestrate the subchondral bone plate to good healthy bleeding bone. The wound was flushed with copious amounts of saline. From the medial incision, remaining cartilage removed and subchondral bone fenestrated. Left Ankle Synovectomy: Normal pleural synovitic tissue around the peroneal tendons as well as, the ankle and subtalar joint. The fluid was resected. Irregular foreign body material was noted in the ankle joint, likely consistent with previous steroid injections. It was removed and sent as a specimen. Synovitic tissue debrided and the wound was flushed with copious amounts of saline. Left Subtalar Joint Arthrodesis: Attention was directed to the STJ where cartilage was removed from joint with hand resection. Next a 2-0 drill bit was used to fenestrate the subchondral bone plate to healthy bleeding bone. Wound was flushed with copious amounts of saline. Next the ankle joint was aligned and temporary fixation inserted. The STJ was then reduced and temporarily fixated. At the point position was checked under intra-op fluoroscopy. Attention was re-directed back to the ankle, where [employer] Augment was inserted followed by [employer]ix. Temporary fixation was achieved. Once again x-ray was used to check position of fusion. No anterior translocation was noted. [employer] 6.5mm cannulated screws were then inserted in standard technique across the ankle and STJ x2. Good apposition and position was noted. Anterior ankle plate and screws applied. Good compression across the joint noted. X-ray confirmed position and hardware was in appropriate position. The wound was flushed. 2-0 Vicryl was used to close deep tissue in a running fashion. 3-0 Vicryl was used to close subq layer in an interrupted fashion. Application of Amniotic Membrane: After deep closure, the amniotic membrane was inserted over the deep fascia. The subcutaneous layer was closed and more membrane was inserted prior to skin closure. Skin was closed with 3-0 Nylon in a mattress fashion. The tourniquet was deflated after 130 mins and immediate hyperemic response was noted to the digits. The wounds were cleansed. Left Foot Application of External Fixation Device (Charcot dislocation): A [employer] medical salvation external fixation device was utilized. The frame had been prebuilt with a footplate, two full leg rings and a 5/8th ring. Leg holders were positioned and the leg placed in the frame. Attention was directed to the lateral calcaneus where an olive wire was positioned from the inferior lateral calcaneus and driven to the medial inferior calcaneus. The calcaneus felt soft in texture. Next a second olive wire was driven from the medial calcaneus into t he lateral calcaneus. Attention was directed proximally to the proximal most ring where a wire was driven from the anterior face of the tibia lateral to medial and a second wire driven from medial to lateral. The wires were tensioned and some stability was noted to the frame. Next 2 more olive wires were used this time on the distal tibia from medial to lateral lateral to medial in an "X" pattern. The leg wires were tensioned to 125. Good stability of the frame was noted. Next an olive wire was positioned from the medial first metatarsal capturing the second and third metatarsals and exiting dorsal lateral on the midfoot. Similarly another olive wire was placed from the fifth metatarsal angle proximal medial capturing the fifth fourth and third metatarsal prior to exiting. The distal foot olive wires were then tensioned to 90 and some deformity was noted to be reduced with the foot being pulled internally and more medially in the frame. Adequate position of the foot within the frame was noted. The skin was not touching or rubbing against the frame in any plane. Intraoperative fluoroscopy was utilized to obtain x-rays which showed adequate position of foot and leg within the frame. Wires were tightened. Xeroform applied around the pin sites and a dry sterile dressing was applied to the foot. The foot plate was attached. The patient was awoken from anesthesia and transferred to recovery with vital signs stable and neurovascular status intact. Materials: [facility] (Charcot external fixator) [place] wires x 8 6.5 mm Darco partially threaded cannulated screws x 3 Anterior ankle fusion plate + locking and nonlocking screws Amnio graft x 1 [employer]ix Augment Discharge/Plan: Admit for overnight observation for pain control, Dr. Mooney and Dr. Griggs for medical mgmt. Plan to discharge tomorrow after one session of physical therapy. Patient is to maintain dressing clean dry and intact. Ice/polar pack behind the left knee and elevate on foam ramp or two pillows. Non weight bearing to the left lower extremity with DME assistance. Rx given for Percocet 7.5/325 #30, Phenegran, Keflex 500mg x 14 days, Motrin 800mg. Obtain post op films, left ankle, calcaneal axial and foot 3 views. Follow up in one week for dressing change. Tourniquet time (min): 130 Condition: stable Disposition: observation Specimens:: Left ankle soft tissue Complications:: None
--- NOTE | 2018-05-30 13:48 | Progress Note ---
[facility] Anesthesia Record Part I Intake, IV Amount: 1,700 Estimated blood loss (mL): 20 Urine output (mL): 700 Blood Products used (#): none Blood Pressure: 143/87 SaO2: 93 Pulse Rate: 90 Respiratory Rate: 16 Temperature: 98.3 F Patient is:: Awake, Stable Stable to PACU at:: 13:44
--- NOTE | 2018-05-30 13:49 | Progress Note ---
[facility] Anesthesia Record Part II Discharge Time: 14:14 Destination: Medical Surgical Department PACU nurse assessment reviewed?: Yes Patient Condition:: Good Anesthesia Complications:: None Swallowing reflex intact?: Yes Cyanosis?: No
--- NOTE | 2018-05-30 17:28 | Progress Note ---
Internal Medicine - PN: Subj *Date: 05/30/18 *Time: 16:00 Interval history: Internal Medicine Consult 53 year old female with a history of diabetes, HTN, hyperlipidemia, A.fib, GERD, depression, anxiety and chronic pain was seen for Medical Consult following left ankle repair with Dr. Mooney. Patient was admitted for pain control. She is sitting up in bed eating a sandwich and chips, states left foot "hurts a little." Dressing with fixation device and ESTELLA drain in place. She is able to wiggle her toes. She denies any chest pain, shortness of breath or other CV symptoms. Other than her foot she feels well and has no complaints. Exam Vital signs and Labs for Last 24 Hours: Temp Pulse Resp BP Pulse Ox 97.6 F 79 14 119/69 94 L 05/30/18 16:45 05/30/18 16:45 05/30/18 16:45 05/30/18 16:45 05/30/18 16:45 Laboratory Results - last 24 hr 05/30/18 06:32: POC Glucose 127 H 05/30/18 07:30: Urine Color Yellow, Urine Appearance Clear, Urine pH 6.0, Ur Specific [place] 1.020, Urine Protein Negative, Urine Glucose (UA) 3+, Urine Ketones Negative, Urine Blood Negative, Urine Nitrate Negative, Urine Bilirubin Negative, Urine Urobilinogen 0.2, Ur Leukocyte Esterase Negative, Urine RBC None, Urine WBC 5-10, Ur Squamous Epith Cells None, Ur Transition Epith Cell Occ, Urine Bacteria 3+ A 05/30/18 13:45: POC Glucose 165 H I & O for Last 24 hours: Intake & Output 05/28/18 05/29/18 05/30/18 05/31/18 11:59 11:59 11:59 11:59 Intake Total 1700 / 1700 Balance 1700 / 1700 Weight 281 lb 302 lb 6 oz Narrative: Obese, white female, pleasant in NAD. ALert and oriented x3. Rate and rhythm regular. Anterior lung birch clear. No LE edema. Abdomen soft and nontender. ENT exam unremarkable. LLE with dressing, fixation device and ESTELLA drain in please-assessed deferred to DR. Mooney Assessment and Plan (1) Left ankle instability Current visit: Yes Status: Chronic Category: Medical Code(s): M25.372 - Other instability, left ankle (2) Chronic pain of left ankle Current visit: Yes Status: Chronic Category: Medical Code(s): M25.572 - Pain in left ankle and joints of left foot; G89.29 - Other chronic pain (3) Type 2 diabetes mellitus Current visit: Yes Status: Chronic Qualifiers: Diabetes mellitus lobsterman insulin use: without care home use Diabetes mellitus complication status: without complication Qualified Code(s): E11.9 - Type 2 diabetes mellitus without complications Category: Medical Code(s): E11.9 - Type 2 diabetes mellitus without complications (4) Essential (primary) hypertension Current visit: Yes Status: Chronic Category: Medical Code(s): I10 - Essential (primary) hypertension (5) Paroxysmal atrial fibrillation Current visit: Yes Status: Chronic Category: Medical Code(s): I48.0 - Paroxysmal atrial fibrillation (6) Depression with anxiety Current visit: Yes Status: Chronic Category: Medical Code(s): F41.8 - Othe r specified anxiety disorders (7) BMI 45.0-49.9, adult Current visit: Yes Status: Acute Category: Medical Code(s): Z68.42 - Body mass index (BMI) 45.0-49.9, adult - Assessment and plan all Dx Assessment and Plan for all problems:: Overall she is doing very well and is stable from cardiopulmonary standpoint. Home meds reviewed and ordered as indicated. Incentive spirometer Q1 hour while awake. FSBS with sliding scale coverage. Wound care per Dr. Mooney
--- NOTE | 2018-05-31 07:56 | Consult Report ---
*Admission Date: 05/31/18 *Chief complaint: Left ankle RA, OA, DM *History of present illness: Ms. Samano is a pleasant 53-year-old female who was admitted yesterday 05/30/18 status post left ankle surgery. Has medical history including diabetes, Charcot neuropathy, RA, fibromyalgia. Patient had an ankle and subtalar fusion (TTC) with application of external fixation device. She is resting comfortably in bed this morning with no complaints of N/V, F/C, SOB/CP. Pain controlled with meds. Review of Systems - Constitutional Denies chills, Denies fatigue - Eyes Denies blurry vision - ENT Denies abnormal hearing - *Cardiovascular Denies chest pain, Denies shortness of breath - *Respiratory Denies shortness of breath with activity - *Gastrointestinal Denies abdominal pain, Denies nausea, Denies vomiting - *Genitourinary Denies abnormal periods - *Musculoskeletal Reports limited joint movement, Reports numbness - Integumentary/Breasts Denies skin ulcer - *Neurologic Reports tingling/numbness/burning sensations, Denies behavioral changes - Psychiatric Denies behavioral changes - Endocrine Denies cold intolerance [facility] History Medical History: Reports:: Atrial Fibrillation, Depression, Diabetes Mellitus Type 2, Gastroesophageal Reflux Disease(GERD), Hypertension Denies:: Cancer, Diabetes Mellitus Type 1, Internal Pacemaker, MRSA, Seizures Have you ever received a pneumonia vaccine?: No Have you received a flu vaccine this season?: Yes Other Medical History: Reports: Arthritis, Other (rheumatoid arthritis, CHEY use CPAP, morbid obesity). Denies: Blood Transfusion Reaction Laterality Cases: Right: Arthroscopy Shoulder Other Surgeries: Yes: No Previous Surgery, Cholecystectomy, Other. No: Pacemaker Amputation: No Fractures: No - *Social History Educational Level: Completed High School Smoking Status: Never smoker Alcohol Intake: never Alcohol Intake Frequency:: other Substance Use Type: denies use Occupational Status: disabled Housing: house Household Members: spouse Travel in the last 8 weeks: None - Psychiatric History Expresses thoughts of harming self/others: None Suicide Plan Description: No Plan Pschychiatric History:: Reports:: Depression *Family Hx:: Hyperlipidemia, Hypertension Meds Home Medications Medication Instructions Recorded Confirmed Type baclofen 10 mg tablet 10 mg PO Q8H 09/05/17 05/30/18 History citalopram 20 mg tablet 20 mg PO ONCE 09/05/17 05/30/18 History esomeprazole magnesium 40 mg 40 mg PO ONCE 09/05/17 05/30/18 History capsule,delayed release folic acid 1 mg tablet 1 mg PO ONCE 09/05/17 05/30/18 History gabapentin 400 mg capsule 400 mg PO TID 09/05/17 05/30/18 History hydrochlorothiazide 25 mg tablet 25 mg PO QAM 09/05/17 05/30/18 History hydrocodone 7.5 mg-acetaminophen 1 tab PO Q6H PRN 09/05/17 05/30/18 History 300 mg tablet losartan 100 mg tablet 100 mg PO ONCE 09/05/17 05/30/18 History methotrexate sodium 15 mg tablet 15 mg PO ONCE 09/05/17 05/30/18 History rivaroxaban 20 mg tablet 20 mg PO QPM 09/05/17 05/30/18 History sitagliptin 50 mg-metformin ER 2 tab PO QPM 09/05/17 05/30/18 History 1,000 mg tablet,extended release 24h mp sucralfate 1 gram tablet 1 g PO BID 09/05/17 05/30/18 History adalimumab 40 mg/0.8 mL 40 mg SUB-Q Q14D 10/03/17 05/30/18 History subcutaneous pen kit amlodipine 5 mg tablet 5 mg PO DAILY tab 10/12/17 05/30/18 History empagliflozin 10 mg tablet 10 mg PO QAM 10/12/17 05/30/18 History ibuprofen 800 mg tablet 800 mg PO BID #60 tab 05/01/18 05/30/18 Rx promethazine 12.5 mg tablet 12.5 mg PO Q4-6H PRN #30 tab 05/01/18 05/30/18 Rx cephalexin 500 mg tablet 500 mg PO Q12H 14 Days #28 tab 05/29/18 05/30/18 Rx Carvedilol [Carvedilol 25mg Tab] 25 mg PO BID 05/30/18 05/30/18 History Docusate Sodium 100 mg PO QDAY 05/30/18 05/30/18 History Ergocalciferol (Vitamin D2) 50,000 unit PO QWEEK 05/30/18 05/30/18 History [Drisdol] Allergies Allergy/AdvReac Type Severity Reaction Status Date / Time Penicillins Allergy Intermediate I-RASH Verified 05/01/18 11:08 Exam Vital signs and Labs for Last 24 Hours: Temp Pulse Resp BP Pulse Ox 97.0 F L 64 16 101/56 L 94 L 05/31/18 05:05 05/31/18 05:05 05/31/18 05:05 05/31/18 05:05 05/31/18 05:05 Laboratory Results - last 24 hr 05/30/18 07:30: Urine Color Yellow, Urine Appearance Clear, Urine pH 6.0, Ur Specific [place] 1.020, Urine Protein Negative, Urine Glucose (UA) 3+, Urine Ketones Negative, Urine Blood Negative, Urine Nitrate Negative, Urine Bilirubin Negative, Urine Urobilinogen 0.2, Ur Leukocyte Esterase Negative, Urine RBC None, Urine WBC 5-10, Ur Squamous Epith Cells None, Ur Transition Epith Cell Occ , Urine Bacteria 3+ A 05/30/18 13:45: POC Glucose 165 H 05/30/18 22:12: POC Glucose 163 H 05/31/18 06:12: POC Glucose 137 H I & O for Last 24 hours: Intake & Output 05/28/18 05/29/18 05/30/18 05/31/18 11:59 11:59 11:59 11:59 Intake Total 2257 / 2257 Output Total 1050 / 1050 Balance 1207 / 1207 Weight 281 lb 302 lb 6 oz - *Routine HEENT Exam Head: Present: normocephalic - *Routine Neck Exam Present: supple - *Routine Respiratory Exam Present: accessory muscle use - *Routine Cardiovascular Exam Present: RRR - *Routine Abdominal Exam Present: soft - *Routine Rectal Exam Patient deferred: visual exam - *Routine Exam Patient deferred: external exam - *Routine Extremities Exam Present: edema, pulses intact, normal capillary refill - *Routine Skin Exam Present: warm - *Routine Neurological Exam Present: moving all extremities - Detailed Lower Extremity Exam Foot/Toes: Left swelling Comments: Light touch sensation at baseline. Motor function intact. No calf or thigh pain noted bilaterally. ESTELLA drain intact to the left lower extremity, pulled. Dressing clean dry and intact with no strike through. Results - Labs Labs: Abnormal lab results 05/30/18 05/30/18 05/30/18 Range/Units 07:30 13:45 22:12 POC Glucose 165 H 163 H (70-110) Urine Bacteria 3+ A (None) /lpf 05/31/18 Range/Units 06:12 POC Glucose 137 H (70-110) Urine Bacteria (None) /lpf All other labs normal. Assessment and Plan (1) Left ankle instability Current visit: Yes Status: Chronic Category: Medical Code(s): M25.372 - Other instability, left ankle (2) Chronic pain of left ankle Current visit: Yes Status: Chronic Category: Medical Code(s): M25.572 - Pain in left ankle and joints of left foot; G89.29 - Other chronic pain (3) Type 2 diabetes mellitus Current visit: Yes Status: Chronic Qualifiers: Diabetes mellitus mcc insulin use: without mcc use Diabetes mellitus complication status: without complication Qualified Code(s): E11.9 - Type 2 diabetes mellitus without complications Category: Medical Code(s): E11.9 - Type 2 diabetes mellitus without complications (4) Essential (primary) hypertension Current visit: Yes Status: Chronic Category: Medical Code(s): I10 - Essential (primary) hypertension (5) Paroxysmal atrial fibrillation Current visit: Yes Status: Chronic Category: Medical Code(s): I48.0 - Paroxysmal atrial fibrillation (6) Depression with anxiety Current visit: Yes Status: Chronic Category: Medical Code(s): F41.8 - Other specified anxiety disorders (7) BMI 45.0-49.9, adult Current visit: Yes Status: Acute Category: Medical Code(s): Z68.42 - Body mass index (BMI) 45.0-49.9, adult - Assessment and plan all Dx Assessment and Plan for all problems:: S/p left TTC (tibio talar calcaneal) arthrodesis, denys of ex fix, synovectomy, AAMIR on 05/30/18 POD # 1 Ex fix and dressings are clean, dry and intact to the LLE with no signs of infection. ESTELLA drain intact, pulled at beside this am. Patient is to keep this dressing clean, dry, and intact until their follow up appointment in one week. They are to continue non weight bearing. Ice, elevate and Motrin for pain and swelling. Has Rx Percocet, Motrin, Xarelto, Keflex, Zofran. They should call me with any questions or concerns. Follow up in one week for dressing change, 06/07/18 @1020.
--- NOTE | 2018-05-31 08:11 | Discharge Summary ---
General - General Admission date:: 05/30/18 Discharge date: 05/31/18 HPI HPI: Mrs. Samano is a pleasant 53-year-old diabetic female who was admitted after surgery yesterday 05/30/18 for postop pain control. She did has a history of diabetes with Charcot and rheumatoid arthritic changes to the ankle and subtalar joint. Had a history of chronic ankle instability. Patient underwent surgery yesterday for a tibiotalar calcaneal arthrodesis, ankle cleanout, lengthening and application of external fixation device. No intraoperative complications. No complications during hospital stay. Pain controlled with oral medications. Hospital Course Hospital Course: No complications. 23-hour observation Objective Vital signs: Temp Pulse Resp BP Pulse Ox 97.0 F L 64 16 101/56 L 94 L 05/31/18 05:05 05/31/18 05:05 05/31/18 05:05 05/31/18 05:05 05/31/18 05:05 - *Routine HEENT Exam Head: Present: normocephalic - *Routine Neck Exam Present: supple - *Routine Respiratory Exam Present: accessory muscle use - *Routine Cardiovascular Exam Present: RRR - *Routine Abdominal Exam Present: soft - *Routine Rectal Exam Patient deferred: visual exam - *Routine Exam Patient deferred: external exam - *Routine Extremities Exam Present: full ROM, pulses intact, normal capillary refill - *Routine Skin Exam Present: intact, warm - *Routine Neurological Exam Present: alert, moving all extremities - Detailed Lower Extremity Exam Comments: Left lower extremity external fixation device intact with dressing clean dry and intact. Light touch sensation at baseline. Capillary fill time within normal limits. Foot warm with motor function intact. No calf or thigh pain noted bilaterally. Results Completed studies during hospitalization [Text1]: Ankle, foot and calcaneal axial x-rays taken 05/30/18. Hardware intact to LLE Labs on day of discharge: Labs from last 24 hours 05/31/18 05/30/18 05/30/18 06:12 22:12 13:45 POC Glucose 137 H 163 H 165 H Urine Color Urine Appearance Urine pH Ur Specific [place] Urine Protein Urine Glucose (UA) Urine Ketones Urine Blood Urine Nitrate Urine Bilirubin Urine Urobilinogen Ur Leukocyte Esterase Urine RBC Urine WBC Ur Squamous Epith Cells Ur Transition Epith Cell Urine Bacteria 05/30/18 07:30 POC Glucose Urine Color Yellow Urine Appearance Clear Urine pH 6.0 Ur Specific [place] 1.020 Urine Protein Negative Urine Glucose (UA) 3+ Urine Ketones Negative Urine Blood Negative Urine Nitrate Negative Urine Bilirubin Negative Urine Urobilinogen 0.2 Ur Leukocyte Esterase Negative Urine RBC None Urine WBC 5-10 Ur Squamous Epith Cells None Ur Transition Epith Cell Occ Urine Bacteria 3+ A DS: Diagnosis - Discharge Diagnosis (1) Left ankle instability Status: Chronic (2) Chronic pain of left ankle Status: Chronic (3) Type 2 diabetes mellitus Status: Chronic (4) Essential (primary) hypertension Status: Chronic (5) Paroxysmal atrial fibrillation Status: Chronic (6) Depression with anxiety Status: Chronic (7) BMI 45.0-49.9, adult Status: Acute Discharge Plan - Patient Discharge Instructions ACTIVITY: Limited activity DIET: advance to your usual diet Additional Instructions: Patient is to maintain dressing clean dry and intact to LLE. Ice (polar pack) behind the left knee and elevate on two pillows. Non weight bearing to the left lower extremity with DME assistance (walker, rolling knee scooter). Continue incentive spirometer q1h. Rx for Percocet 7.5/325. e-Rx given for Keflex 500mg, Zofran and Motrin 800mg. Follow up in one week as scheduled on 06/07/18 @1020 Patient Instructions: DI for Surgical Site Infection - Follow up Plan Follow up with: Janice Mooney DPM [Staff Physician] - Abhishek Griggs MD [Primary Care Provider] - Home Medications: Home Medications Medication Instructions Recorded Confirmed Type baclofen 10 mg tablet 10 mg PO Q8H 09/05/17 05/30/18 History citalopram 20 mg tablet 20 mg PO ONCE 09/05/17 05/30/18 History esomeprazole magnesium 40 mg 40 mg PO ONCE 09/05/17 05/30/18 History capsule,delayed release folic acid 1 mg tablet 1 mg PO ONCE 09/05/17 05/30/18 History gabapentin 400 mg capsule 400 mg PO TID 09/05/17 05/30/18 History hydrochlorothiazide 25 mg tablet 25 mg PO QAM 09/05/17 05/30/18 History hydrocodone 7.5 mg-acetaminophen 1 tab PO Q6H PRN 09/05/17 05/30/18 History 300 mg tablet losartan 100 mg tablet 100 mg PO ONCE 09/05/17 05/30/18 History methotrexate sodium 15 mg tablet 15 mg PO ONCE 09/05/17 05/30/18 History rivaroxaban 20 mg tablet 20 mg PO QPM 09/05/17 05/30/18 History sitagliptin 50 mg-metformin ER 2 tab PO QPM 09/05/17 05/30/18 History 1,000 mg tablet,extended release 24h mp sucralfate 1 gram tablet 1 g PO BID 09/05/17 05/30/18 History adalimumab 40 mg/0.8 mL 40 mg SUB-Q Q14D 10/03/17 05/30/18 History subcutaneous pen kit amlodipine 5 mg tablet 5 mg PO DAILY tab 10/12/17 05/30/18 History empagliflozin 10 mg tablet 10 mg PO QAM 10/12/17 05/30/18 History ibuprofen 800 mg tablet 800 mg PO BID #60 tab 05/01/18 05/30/18 Rx promethazine 12.5 mg tablet 12.5 mg PO Q4-6H PRN #30 tab 05/01/18 05/30/18 Rx cephalexin 500 mg tablet 500 mg PO Q12H 14 Days #28 tab 05/29/18 05/30/18 Rx Carvedilol [Carvedilol 25mg Tab] 25 mg PO BID 05/30/18 05/30/18 History Docusate Sodium 100 mg PO QDAY 05/30/18 05/30/18 History Ergocalciferol (Vitamin D2) 50,000 unit PO QWEEK 05/30/18 05/30/18 History [Drisdol] Prescriptions/Medication Reconciliation: No Action gabapentin 400 mg capsule 400 mg PO TID baclofen 10 mg tablet 10 mg PO Q8H losartan 100 mg tablet 100 mg PO ONCE hydrochlorothiazide 25 mg tablet 25 mg PO QAM rivaroxaban 20 mg tablet 20 mg PO QPM hydrocodone 7.5 mg-acetaminophen 300 mg tablet 1 tab PO Q6H PRN PRN Reason: pain, moderate esomeprazole magnesium 40 mg capsule,delayed release 40 mg PO ONCE sucralfate 1 gram tablet 1 g PO BID folic acid 1 mg tablet 1 mg PO ONCE sitagliptin 50 mg-metformin ER 1,000 mg tablet,extended release 24h mp 2 tab PO QPM adalimumab 40 mg/0.8 mL subcutaneous pen kit 40 mg SUB-Q Q14D amlodipine 5 mg tablet 5 mg PO DAILY tab promethazine 12.5 mg tablet 12.5 mg PO Q4-6H PRN #30 tab PRN Reason: nausea and vomiting ibuprofen 800 mg tablet 800 mg PO BID #60 tab cephalexin 500 mg tablet 500 mg PO Q12H 14 Days #28 tab citalopram 20 mg tablet 20 mg PO ONCE methotrexate sodium 15 mg tablet 15 mg PO ONCE empagliflozin 10 mg tablet 10 mg PO QAM Carvedilol [Carvedilol 25mg Tab] 25 mg PO BID Ergocalciferol (Vitamin D2) [Drisdol] 50,000 unit PO QWEEK Docusate Sodium 100 mg PO QDAY
--- NOTE | 2018-05-31 08:37 | Progress Note ---
Internal Medicine - PN: Subj *Date: 05/31/18 *Time: 08:05 Interval history: Patient is sitting up in bed visiting with family. Pain is well controlled. Denies any chest pain, shortness or breath or other cardiopulmonary symptoms. Alert and oriented x3. Rate and rhythm regular. Lung sounds clear and equal. LLE assessment per podiatry Exam Vital signs and Labs for Last 24 Hours: Temp Pulse Resp BP Pulse Ox 98.2 F 65 17 94/61 L 94 L 05/31/18 08:00 05/31/18 08:00 05/31/18 08:00 05/31/18 08:00 05/31/18 08:00 Laboratory Results - last 24 hr 05/30/18 07:30: Urine Color Yellow, Urine Appearance Clear, Urine pH 6.0, Ur Specific [place] 1.020, Urine Protein Negative, Urine Glucose (UA) 3+, Urine Ketones Negative, Urine Blood Negative, Urine Nitrate Negative, Urine Bilirubin Negative, Urine Urobilinogen 0.2, Ur Leukocyte Esterase Negative, Urine RBC None, Urine WBC 5-10, Ur Squamous Epith Cells None, Ur Transition Epith Cell Occ, Urine Bacteria 3+ A 05/30/18 13:45: POC Glucose 165 H 05/30/18 22:12: POC Glucose 163 H 05/31/18 06:12: POC Glucose 137 H I & O for Last 24 hours: Intake & Output 05/28/18 05/29/18 05/30/18 05/31/18 11:59 11:59 11:59 11:59 Intake Total 2497 / 2497 Output Total 1050 / 1050 Balance 1447 / 1447 Weight 281 lb 302 lb 6 oz Microbiology Reports for the Last 24 Hours: Microbiology 05/30/18 07:30 Urine,Catheterized Urine Culture - Preliminary Gram Negative Rods Assessment and Plan (1) Left ankle instability Current visit: Yes Status: Chronic Category: Medical Code(s): M25.372 - Other instability, left ankle (2) Chronic pain of left ankle Current visit: Yes Status: Chronic Category: Medical Code(s): M25.572 - Pain in left ankle and joints of left foot; G89.29 - Other chronic pain (3) Type 2 diabetes mellitus Current visit: Yes Status: Chronic Qualifiers: Diabetes mellitus rn long term care insulin use: without rn long term care use Diabetes mellitus complication status: without complication Qualified Code(s): E11.9 - Type 2 diabetes mellitus without complications Category: Medical Code(s): E11.9 - Type 2 diabetes mellitus without complications (4) Essential (primary) hypertension Current visit: Yes Status: Chronic Category: Medical Code(s): I10 - Essential (primary) hypertension (5) Paroxysmal atrial fibrillation Current visit: Yes Status: Chronic Category: Medical Code(s): I48.0 - Paroxysmal atrial fibrillation (6) Depression with anxiety Current visit: Yes Status: Chronic Category: Medical Code(s): F41.8 - Other specified anxiety disorders (7) BMI 45.0-49.9, adult Current visit: Yes Status: Acute Category: Medical Code(s): Z68.42 - Body mass index (BMI) 45.0-49.9, adult - Assessment and plan all Dx Assessment and Plan for all problems:: Cleared to discharge per medical standpoint. Restart xarelto in one week. Continue to hold arthritis meds until further instructed
== END 2018-05-31 10:30 | disposition home or self-care (01) ==
LOC: 2ND 06:05 → OR 06:05
PROVIDERS: ADMIT Internal Medicine Adolescent Medicine; ATTEND Podiatrist
CPT/HCPCS: 73600; 73610; 73630; 73650; 76000; 81001; 82962; 87086; 87088; 87186; 96374; 97162; C1713; C1762; C1776; G0378; J2405; S0077

== ENCOUNTER → 2018-06-21 09:08 | Outpatient (CLI) | payer OTHER, MEDICARE, SELFPAY ==
--- NOTE | 2018-06-21 09:14 | XR_ITS ---
XR ankle wt bearing LT min 3V HISTORY: Follow-up surgery/fusionITS.REASON: post-op ORDERING PHYSICIAN: Janice Mooney DPM PATIENT AGE: 53 years Comparison: 05/30/2018 FINDINGS: The external fixator remains in place as before obscuring portions of the leg and foot. Status post arthrodesis of the tibiotalar joint with osteotomy of the distal tibia and fibula. Status post talocalcaneal fixation. Screws and metallic hardware remains in place not significant changed with good alignment. IMPRESSION: No change status post arthrodesis of the tibiotalar joint and talocalcaneal joint with external fixator in place
--- NOTE | 2018-06-21 09:14 | XR_ITS ---
XR foot wt bearing LT 3V HISTORY: Follow-up surgery/fusion ITS.REASON: post-op ORDERING PHYSICIAN: Janice Mooney DPM PATIENT AGE: 53 years Comparison: 05/30/2018 FINDINGS: The external fixator remains in place as before obscuring portions of the leg and foot. Status post arthrodesis of the tibiotalar joint with osteotomy of the distal tibia and fibula. Status post talocalcaneal arthrodesis. Screws and metallic hardware remains in place not significantly changed with good alignment. IMPRESSION: No change status post arthrodesis of the tibiotalar joint and talocalcaneal joint with external fixator in place
== END ==
PROVIDERS: PCP Internal Medicine Adolescent Medicine; Visit Provider Podiatrist
DX: Z98.890 Other specified postprocedural states (principal)
CPT/HCPCS: 73610; 73630

== ENCOUNTER → 2018-07-10 10:01 | Outpatient (CLI) | payer OTHER, MEDICARE, SELFPAY ==
[2018-07-10 10:55] LABS: Basophils # 0.1 K/mm3 (0-0.2); Basophils % 0.8 % (0.1-2.0); Eosinophils # 0.6 K/mm3 (0.0-0.4); Eosinophils % 8.2 % (0.1-12.0); Hematocrit 42.7 % (37.0-47.0); Hemoglobin 13.1 g/dL (12.2-16.2); Lymphocytes # 2.6 K/mm3 (0.7-4.5); Lymphocytes % 36.7 % (10-50); Mean Corpuscular HGB Conc 30.6 g/dL (31.8-35.4); Mean Corpuscular Hemoglobin 27.2 pg (27.0-31.2); Mean Corpuscular Volume 88.9 fl (81-99); Monocytes # 0.4 K/mm3 (0.1-1.0); Neutrophils # 3.4 K/mm3 (1.8-7.8); Neutrophils % 48.3 % (37.0-80.0); Platelet Count 318 K/mm3 (142-424); Red Cell Distribution Width 14.4 % (11.5-17.5); White Blood Count 7.1 K/mm3 (4.8-10.8)
[2018-07-10 11:41] LABS: Anion Gap 16.9 mEq/L (5-15); Blood Urea Nitrogen 19 mg/dL (7-18); Carbon Dioxide 26 mmol/L (21.0-32.0); Chloride 100 mmol/L (98-107); Creatinine,Serum 1.06 mg/dL (0.55-1.02); Estimated Glomerular Filt Rate 54 ml/min (>60); GFR (African American) 65 ML/MIN (>60); Glucose 163 mg/dL (74-106); Potassium 3.9 mmoL/L (3.5-5.1); Sodium 139 mmol/L (136-145)
== END ==
PROVIDERS: PCP Internal Medicine Adolescent Medicine; Visit Provider Podiatrist
DX: Z01.818 Encounter for other preprocedural examination (principal); E11.610 Type 2 diabetes mellitus with diabetic neuropathic arthropathy; M79.672 Pain in left foot
CPT/HCPCS: 36415; 80048; 85025; 93005

== ENCOUNTER → 2018-07-19 15:00 | Outpatient (CLI) | payer OTHER, MEDICARE, SELFPAY | PROVIDERS: Visit Provider Podiatrist | DX: M96.840 Postprocedural hematoma of a musculoskeletal structure following a musculoskeletal system procedure (principal) | CPT/HCPCS: 87070; 87077; 87186; 87205 ==

== ENCOUNTER → 2018-07-26 14:03 | Outpatient (CLI) | payer OTHER, MEDICARE, SELFPAY ==
--- NOTE | 2018-07-26 14:08 | XR_ITS ---
XR ankle wt bearing LT min 3V, XR foot wt bearing LT 3V Ordering Physician: Janice Mooney DPM Patient Age: 53 years: Female HISTORY: ITS.REASON: postop views Left ankle pain and instability with fixation arthrodesis. Rheumatoid arthritis diabetic Charcot neuroarthropathy. TECHNIQUE: Left ankle. 3 view:... AP lateral and oblique.. Simulated weightbearing Left foot:.. 3 view: AP lateral and oblique.. Simulated weightbearing COMPARISON :06/03/2018 & 07/13/2018 left foot and ankle LEFT ANKLE The posterior splint has been removed since removed since prior study 07/13/2018.. Status post arthrodesis of the tibiotalar joint. Metallic plate has been applied anteriorly at the tibiotalar joint secured by multiple screws at the tibia and talus. There is been resection lateral malleolus, transverse osteotomy at distal most shaft of fibula. Upper there is likely been a partial osteotomy at the distal tibia noting its flattened appearance at ankle joint.. There is now [id number] appearance of tibia upon the dome of talus, with a screw crossing the tibiotalar joint providing additional fixation/arthrodesis in addition to the anterior external plate fixation feature. A single screw is seen at the medial malleolus findings fixation to suspect a subtle nondisplaced fracture here .. Status post talocalcaneal fixation appear stable. There is also been arthrodesis of subtalar joint. 2 screws enter the posterior calcaneus and directed oblique fashion up to the talus. The screws pass oblique fashion upward with tips directed laterally on the frontal projection Soft tissue swelling persists about the ankle particularly lateral Otherwise note generous plantar calcaneal spur along with prominent thick spurring at the insertion Achilles tendon IMPRESSION: Stable appearance osseous and fixation elements , status post arthrodesis of the tibiotalar joint & talocalcaneal joint. Posterior plaster splint is been removed for today's images. . Screws and metallichardware remains in place not significant changed with good alignment. Osseous elements and fixation elements appear stable
== END ==
PROVIDERS: PCP Internal Medicine Adolescent Medicine; Visit Provider Podiatrist
DX: Z98.890 Other specified postprocedural states (principal)
CPT/HCPCS: 73610; 73630

== ENCOUNTER → 2018-08-15 09:01 | Outpatient (CLI) | payer OTHER, MEDICARE, SELFPAY ==
[2018-08-15 09:33] LABS: Basophils # 0.1 K/mm3 (0-0.2); Basophils % 0.7 % (0.1-2.0); Eosinophils # 0.6 K/mm3 (0.0-0.4); Hematocrit 42.6 % (37.0-47.0); Hemoglobin 13.2 g/dL (12.2-16.2); Lymphocytes # 3.1 K/mm3 (0.7-4.5); Mean Corpuscular HGB Conc 31.1 g/dL (31.8-35.4); Mean Corpuscular Hemoglobin 26.3 pg (27.0-31.2); Mean Corpuscular Volume 84.5 fl (81-99); Mean Platelet Volume 6.6 fl (7.4-10.4); Monocytes # 0.5 K/mm3 (0.1-1.0); Monocytes % 5.3 % (1.7-9.3); Neutrophils # 4.6 K/mm3 (1.8-7.8); Neutrophils % 52.1 % (37.0-80.0); Platelet Count 388 K/mm3 (142-424); Red Blood Count 5.04 M/mm3 (4.20-5.40); Red Cell Distribution Width 14.5 % (11.5-17.5); White Blood Count 8.8 K/mm3 (4.8-10.8)
[2018-08-15 11:02] LABS: Erythrocyte Sedimentation Rate 19 mm/hr (0-30)
[2018-08-15 11:59] LABS: Alanine Aminotransferase 23 U/L (12-78); Albumin Level 3.9 gm/dL (3.4-5.0); Albumin/Globulin Ratio 0.9 (1.1-1.8); Alkaline Phosphatase 103 U/L (46-116); Anion Gap 15.2 mEq/L (5-15); Aspartate Amino Transferase 22 U/L (15-37); Bilirubin,Total 0.2 mg/dL (0.2-1.0); Blood Urea Nitrogen 21 mg/dL (7-18); Calcium 10.3 mg/dL (8.5-10.1); Carbon Dioxide 28 mmol/L (21.0-32.0); Chloride 103 mmol/L (98-107); Creatinine,Serum 0.99 mg/dL (0.55-1.02); Estimated Glomerular Filt Rate 58 ml/min (>60); GFR (African American) 71 ML/MIN (>60); Globulin 4.3 gm/dl (1.3-3.2); Glucose 143 mg/dL (74-106); Potassium 4.2 mmoL/L (3.5-5.1); Sodium 142 mmol/L (136-145); Total Protein,Serum 8.2 gm/dL (6.4-8.2)
[2018-08-15 12:00] LABS: C-Reactive Protein < 0.2 mg/L (0.0-0.9)
== END ==
PROVIDERS: Visit Provider Internal Medicine
DX: D89.9 Disorder involving the immune mechanism, unspecified (principal); M05.9 Rheumatoid arthritis with rheumatoid factor, unspecified; M79.7 Fibromyalgia; Z79.899 Other long term (current) drug therapy
CPT/HCPCS: 36415; 80053; 85025; 85651; 86140

== ENCOUNTER → 2018-08-28 10:14 | Outpatient (CLI) | payer OTHER, MEDICARE, SELFPAY ==
--- NOTE | 2018-08-28 10:18 | XR_ITS ---
XR ankle wt bearing LT min 3V HISTORY: Follow-up surgery/ankle fusion ITS.REASON: post-op ORDERING PHYSICIAN: Janice Mooney DPM PATIENT AGE: 53 years Comparison: 07/26/2018 FINDINGS: Anterior bone plate remains in place fusing the anterior aspect of the ankle joint with osteoarthritic changes of the ankle joint. There is been fusion of the talocalcaneal joint posteriorly with 2 screws. There remains good alignment. There has been osteotomy of the distal fibula. No bony destructive process evident with no significant change. IMPRESSION: Status post arthrodesis of the tibiotalar joint and talocalcaneal joint with good alignment and no significant change. Prior osteotomy of the distal fibula
--- NOTE | 2018-08-28 10:18 | XR_ITS ---
XR foot wt bearing LT 3V HISTORY: Follow-up ankle fusion ITS.REASON: post-op ORDERING PHYSICIAN: Janice Mooney DPM PATIENT AGE: 53 years COMPARISON: 07/26/2018 FINDINGS: There remains good alignment. Lucency is present in the proximal shaft of the second third and fourth metatarsals from recent external fixator. There is mild disuse osteoporosis. There is been prior fusion of the ankle joint and the talocalcaneal joint as before with no change in the orthopedic hardware. IMPRESSION: No change status post ankle and hindfoot fusion with good alignment
== END ==
PROVIDERS: PCP Internal Medicine Adolescent Medicine; Visit Provider Podiatrist
DX: Z98.890 Other specified postprocedural states (principal)
CPT/HCPCS: 73610; 73630

== ENCOUNTER 2018-08-31 13:00 | Outpatient (RCR) | payer OTHER, MEDICARE, SELFPAY ==
--- NOTE | 2018-08-06 13:49 | HMH.PTOPEV ---
PT Outpatient Evaluation Rehab PT Outpatient Evaluation Start: 08/06/18 13:17 Freq: Status: Active Protocol: Document 08/06/18 13:20 HUMBERTO (Rec: 08/06/18 13:49 HUMBERTO [id number]) Electronically Signed By Kilo Gordon, PT 08/06/18 13:20 Outpatient Therapy Subjective History Subjective History Pt presents s/p L ankle fusion sx. on 05/30/18. Pt reports improved L ankle pain since sx ., however, still has a great deal of 'stiffness', as well as swelling, and some slow healing incisions. Pt reports h/o chronic L ankle pain for ~ 4 yrs, markedly improved since sx. Currently 50% PWB on LLE, today w/cam walker and scooter. Chief Complaint Pain Stiff Clicks Swelling Weakness Symptom Type Ache Dull Symptoms Relieved By Rest/Positioning Ice Symptoms Aggravated By Standing Physical Activity Walking Prior Functional Limitations Housework Standing Walking Current Functional Limitations Housework Standing Walking Balance Bending/Stooping Symptom Description Constant but Variable Level of pain today (0-10) 2 Pain scale - at its best (0-10) 1 Pain scale - at its worst (0-10) 4 Ankle/Foot Eval Gait Observation General Gait Pattern Observation Antalgic Gait Wide Based Gait Decrease Weight Bear (L) Palpation Tenderness left Ankle/Foot Palpation Findings Tenderness Ankle/Foot Palpation Overall Comment 2-3/4 peroneals, plantar fascia, distal metatarsal heads ROM Ankle/Foot Dorsiflexion w/Knee Extended 0-5 Active Range Motion (degrees) Ankle/Foot Plantar Flexion Active Range 0-8 of Motion (degrees) Ankle/Foot Eversion Active Range of 0-5 Motion (degrees) Ankle/Foot Inversion Active Range of 0-10 Motion (degrees) Ankle/Foot ROM Limitations Soft Tissue Tightness Pain MMT Ankle Dorsiflexion Strength Grade 3
== END 2018-08-31 13:05 | disposition home or self-care (01) ==
LOC: PT 13:00
PROVIDERS: Visit Provider Podiatrist
DX: Z98.890 Other specified postprocedural states (principal); M79.672 Pain in left foot; M25.372 Other instability, left ankle; M25.572 Pain in left ankle and joints of left foot
CPT/HCPCS: 97010; 97014; 97016; 97035; 97110; 97116; 97140; 97163; G0283

== ENCOUNTER → 2018-09-05 09:58 | Outpatient (CLI) | payer OTHER, MEDICARE, SELFPAY ==
--- NOTE | 2018-09-05 10:05 | XR_ITS ---
XR foot wt bearing LT 3V HISTORY: Foot pain after physical therapy ITS.REASON: pain ORDERING PHYSICIAN: Janice Mooney DPM PATIENT AGE: 53 years COMPARISON: 08/28/2018 FINDINGS: There is generalized osteopenia of the midfoot. There are postsurgical changes with lucencies in the metatarsals from previous external fixator. There has been prior fusion of the ankle joint with no change in the anterior tibiotalar bone plate with multiple screws as well as 2 screws directed from the calcaneus into the talus or subtalar joint fusion. No acute fracture or dislocation. There are mild osteoarthritic changes of the first metatarsal tarsal joint. IMPRESSION: Overall no change status post prior ankle and subtalar fusion
--- NOTE | 2018-09-05 10:05 | XR_ITS ---
XR ankle wt bearing LT min 3V HISTORY: Follow-up surgery/fusion, pain ITS.REASON: pain ORDERING PHYSICIAN: Janice Mooney DPM PATIENT AGE: 53 years Comparison: 08/28/2018 FINDINGS: Anterior bone plate remains in place fusing the anterior aspect of the ankle joint with osteoarthritic changes of the ankle joint. There is been fusion of the talocalcaneal joint posteriorly with 2 screws. There remains good alignment. There has been osteotomy of the distal fibula. No bony destructive process evident with no significant change. IMPRESSION: Status post arthrodesis of the tibiotalar joint and talocalcaneal joint with good alignment and no significant change. Prior osteotomy of the distal fibula
== END ==
PROVIDERS: PCP Internal Medicine Adolescent Medicine; Visit Provider Podiatrist
DX: Z98.890 Other specified postprocedural states (principal)
CPT/HCPCS: 73610; 73630

== ENCOUNTER → 2018-09-20 10:01 | Outpatient (CLI) | payer OTHER, MEDICARE, SELFPAY ==
--- NOTE | 2018-09-20 10:03 | MR_ITS ---
MR foot LT wo/w con CLINICAL INDICATION: Pain around the entire foot and posterior ankle. Pain after physical therapy ITS.REASON: Pain ORDERING PHYSICIAN: Janice Mooney DPM PATIENT AGE: 53 years Comparison: 09/05/2018 TECHNIQUE: Multiplanar multiecho sequences are performed without and with gadolinium enhancement. FINDINGS: There is considerable artifact from patient's hardware within the ankle, talus, and calcaneus. There is diffuse increased T2 signal within the talus and calcaneus which may be due to postsurgical changes with edema. Other etiologies not excluded such as trauma or infection. There has been osteotomy of the distal fibula with diffuse soft tissue swelling at the lateral aspect of the leg distally. The tibialis anterior and extensor hallucis longus and extensor digitorum longus tendons have an unremarkable appearance. There is diffuse increased soft tissue T2 signal soft tissue swelling about the dorsal lateral aspect of the midfoot at the extensor hallucis brevis and extensor digitorum brevis muscles consistent with hematoma. This is reportedly the patient's area of pain and tenderness. Cannot adequately evaluate the ligaments of the ankle secondary to the artifact and postsurgical changes. IMPRESSION: 1. Extensive postsurgical changes of the ankle and hindfoot with severe artifact including evaluation of these areas. There is bone marrow edema within the talus and calcaneus which is nonspecific and may be due to the postsurgical changes. Prior osteotomy with amputation of the distal aspect of the fibula with extensive soft tissue swelling in this region. 2. Increased T2 signal along the dorsal lateral aspect of the midfoot at the area of patient's pain and tenderness in the region of the extensor hallucis brevis and extensor digitorum brevis muscles suggesting hematoma/edema from muscular injury
[2018-09-20 10:29] LABS: Blood Urea Nitrogen 13 mg/dL (7-18); Creatinine,Serum 0.94 mg/dL (0.55-1.02); Estimated Glomerular Filt Rate 62 ml/min (>60); GFR (African American) 75 ML/MIN (>60)
--- NOTE | 2018-09-20 11:08 | HMH.ITSHM ---
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 []NORCO LOSARTAN POTASSIUM GABAPENTIN HYDROCHLOROTHIAZIDE CARAFATE NEXIUM FOLIC ACID AMLODIPINE METHOTREXATE CAREVEDILOL XARELTO JANUMET BACLOFEN HUMIRA MITALOPRAM JARDIANCE
== END ==
PROVIDERS: PCP Internal Medicine Adolescent Medicine; Visit Provider Podiatrist
DX: S86.012A Strain of left Achilles tendon, initial encounter (principal)
CPT/HCPCS: 36415; 73720; 82565; 84520; A9576

== ENCOUNTER 2018-11-08 13:00 | Outpatient (RCR) | payer OTHER, MEDICARE, SELFPAY ==
--- NOTE | 2018-10-08 13:54 | HMH.PTOPEV ---
PT Outpatient Evaluation Rehab PT Outpatient Evaluation Start: 10/08/18 13:31 Freq: Status: Active Protocol: Document 10/08/18 13:31 HUMBERTO (Rec: 10/08/18 13:54 HUMBERTO [id number]) Electronically Signed By Kilo Gordon, PT 10/08/18 13:31 Outpatient Therapy Subjective History Subjective History Pt reports exacerbation to L ankle around ~08/31/18, 'I think it was during therapy, I felt a little pop'. PMH: L ankle fusion 05/30/18. Pt was progressing w/ skilled P.T. for L ankle sx. when this exacerbation occurred. Pt reports improved L ankle pain over the last ~2 weeks, but still has pain w/ambulation, jess. if not wearing cam walker . Pt reports origin of current s/s Achilles area and medial aspect-post. tib. area. Chief Complaint Pain,Stiff,Weakness Symptom Type Ache,Dull,Numbness Symptoms Relieved By Rest/Positioning,Ice Symptoms Aggravated By Standing,Physical Activity, Walking Prior Functional Limitations Housework,Standing,Walking, Stairs Current Functional Limitations Housework,Standing,Walking, Stairs Symptom Description Constant but Variable Level of pain today (0-10) 2 Pain scale - at its best (0-10) 1 Pain scale - at its worst (0-10) 6 Ankle/Foot Eval Gait Observation General Gait Pattern Observation Antalgic Gait Assistive Device Ambulation Assistive Device Straight Cane Palpation Tenderness left Ankle/Foot Palpation Findings Tenderness Ankle/Foot Palpation Overall Comment 2-3/4 ACHILLES, POST. TIB TENDON ROM Ankle/Foot Dorsiflexion w/Knee Extended 0-10 Active Range Motion (degrees) Ankle/Foot Plantar Flexion Active Range 0-10 of Motion (degrees) Ankle/Foot Eversion Active Range of 0-10 Motion (degrees) Ankle/Foot Inversion Active Range of 0-20 Motion (degrees) Ankle/Foot ROM Limitations Soft Tissue Tightness,Bony Restriction MMT Ankle Dorsiflexion Strength Grade 4 Good Ankle Plantarflexion Strength Grade 4- Good- Foot Eversion Strength Grade 4- Good- Foot Inversion Strength Grade 4- Good- Outpatient Therapy Assessment Impairments Problems/Impairmments Palpation Tenderness,Impaired Range of Motion,Impaired
--- NOTE | 2018-11-08 13:26 | HMH.RHREAS ---
Rehab Reassessment Rehab OP Re-assessment Start: 11/08/18 11:32 Freq: Status: Active Protocol: Document 11/08/18 13:14 HUMBERTO (Rec: 11/08/18 13:25 HUMBERTO [id number]) Electronically Signed By Kilo Gordon, PT 11/08/18 13:14 Rehab Re-assessment Subjective Subjective PT REPORTS INCREASED L ANKLE PAIN @ 2/10 WHILE NON-WT. BEARING, AND 8/10 W/WT. BEARING ACTIVITY, 'I DON'T REALLY FEEL A LOT BETTER SINCE WE STARTED THIS TIME'. Objective Objective Notes AROM: L ANKLE DF 0-10, PF 0-10 , INV 0-15, EVR 0-10 MMT: L ANKLE DF 4-5/, PF 4-/5, INV 4/5, EVR 4-/5 TTP: L ACHILLES INSERTION 06/25, POST. TIB @MED. MALL. 07/23, PERONEALS @ LAT. MALL. 07/23 Assessment Progress Assessment Slower Than Expected Assessment Notes PT WITH INCREASED L ANKLE PAIN OVER THE LAST 7-10 DAYS- ADVISED TO RETURN TO MD FOR FOLLOW-UP D/T INCREASED PAIN Patient goals met STG'S 05/28 Goals Not Met STG'S 10/26, LTG'S 02/28 Plan Plan PT TO CONT. W/SKILLED P.T. TO MAKE FURTHER IMPROVEMENTS WITH ROM, STRENGTH, AND TTP TO ALLOW FOR OPTIMAL FUNCTION Frequency of Therapy 1-2X/WK Duration of therapy 3-4 WKS Time and Billing Re-Eval Time 15 Re-Eval Billing Units 1 PHYSICIAN CERTIFICATION: I certify the specified therapy services for Neeru Samano are required, authorized, and reviewed every 30 days.
== END 2018-11-08 13:05 | disposition home or self-care (01) ==
LOC: PT 13:00
PROVIDERS: Visit Provider Podiatrist
DX: S86.012A Strain of left Achilles tendon, initial encounter (principal)
CPT/HCPCS: 97010; 97014; 97016; 97035; 97110; 97112; 97140; 97163; 97164; G0283

== ENCOUNTER → 2018-11-12 12:26 | Outpatient (CLI) | payer OTHER, MEDICARE, SELFPAY | PROVIDERS: PCP Internal Medicine Adolescent Medicine; Visit Provider Nurse Practitioner Family | DX: I48.0 Paroxysmal atrial fibrillation (principal) | CPT/HCPCS: 93225; 93226 ==

== ENCOUNTER → 2018-11-14 09:02 | Outpatient (CLI) | payer OTHER, MEDICARE, SELFPAY ==
[2018-11-14 09:33] LABS: Basophils % 0.2 % (0.1-2.0); Eosinophils % 0.2 % (0.1-12.0); Hematocrit 39.7 % (37.0-47.0); Lymphocytes # 2.2 K/mm3 (0.7-4.5); Lymphocytes % 21.7 % (10-50); Mean Corpuscular HGB Conc 30.1 g/dL (31.8-35.4); Mean Corpuscular Hemoglobin 25.1 pg (27.0-31.2); Mean Corpuscular Volume 83.3 fl (81-99); Monocytes # 0.5 K/mm3 (0.1-1.0); Monocytes % 4.6 % (1.7-9.3); Neutrophils # 7.4 K/mm3 (1.8-7.8); Neutrophils % 73.3 % (37.0-80.0); Platelet Count 388 K/mm3 (142-424); Red Blood Count 4.77 M/mm3 (4.20-5.40); Red Cell Distribution Width 17.9 % (11.5-17.5)
[2018-11-14 10:27] LABS: Alanine Aminotransferase 27 U/L (12-78); Albumin Level 3.8 gm/dL (3.4-5.0); Alkaline Phosphatase 104 U/L (46-116); Anion Gap 15.1 mEq/L (5-15); Aspartate Amino Transferase 23 U/L (15-37); Bilirubin,Total 0.5 mg/dL (0.2-1.0); Blood Urea Nitrogen 19 mg/dL (7-18); Calcium 9.6 mg/dL (8.5-10.1); Carbon Dioxide 26 mmol/L (21.0-32.0); Chloride 103 mmol/L (98-107); Chol/HDL Ratio 3.1 (1-3.5); Cholesterol 162 mg/dL (140-200); Creatinine,Serum 1.03 mg/dL (0.55-1.02); Estimated Glomerular Filt Rate 56 ml/min (>60); GFR (African American) 68 ML/MIN (>60); Globulin 3.7 gm/dl (1.3-3.2); Glucose 185 mg/dL (74-106); HDL Cholesterol 53 mg/dL (29-89); LDL Cholesterol 82 mg/dL (0-130); Potassium 4.1 mmoL/L (3.5-5.1); Sodium 140 mmol/L (136-145); Total Protein,Serum 7.5 gm/dL (6.4-8.2); Triglycerides 136 mg/dL (30-200); VLDL Cholesterol 27 mg/dL (0-40)
[2018-11-14 10:50] LABS: Hemoglobin A1C 7.8 % (0.0-7.0)
== END ==
PROVIDERS: Visit Provider Nurse Practitioner Family
DX: Z00.00 Encounter for general adult medical examination without abnormal findings (principal); E11.9 Type 2 diabetes mellitus without complications; E78.2 Mixed hyperlipidemia; I10 Essential (primary) hypertension; M05.79 Rheumatoid arthritis with rheumatoid factor of multiple sites without organ or systems involvement; Z79.4 Long term (current) use of insulin
CPT/HCPCS: 36415; 80053; 80061; 83036; 85025

== ENCOUNTER → 2018-12-19 09:29 | Outpatient (CLI) | payer OTHER, MEDICARE, SELFPAY ==
[2018-12-19 10:07] LABS: Basophils # 0.1 K/mm3 (0-0.2); Basophils % 0.9 % (0.1-2.0); Eosinophils # 0.4 K/mm3 (0.0-0.4); Eosinophils % 5.6 % (0.1-12.0); Hematocrit 41.1 % (37.0-47.0); Hemoglobin 12.6 g/dL (12.2-16.2); Lymphocytes # 2.5 K/mm3 (0.7-4.5); Lymphocytes % 39.3 % (10-50); Mean Corpuscular HGB Conc 30.6 g/dL (31.8-35.4); Mean Corpuscular Volume 84.9 fl (81-99); Mean Platelet Volume 6.1 fl (7.4-10.4); Monocytes # 0.5 K/mm3 (0.1-1.0); Monocytes % 7.1 % (1.7-9.3); Platelet Count 366 K/mm3 (142-424); Red Blood Count 4.84 M/mm3 (4.20-5.40); Red Cell Distribution Width 17.5 % (11.5-17.5); White Blood Count 6.5 K/mm3 (4.8-10.8)
[2018-12-19 10:41] LABS: Erythrocyte Sedimentation Rate 16 mm/hr (0-30)
[2018-12-19 12:18] LABS: Alanine Aminotransferase 21 U/L (12-78); Albumin Level 3.7 gm/dL (3.4-5.0); Alkaline Phosphatase 106 U/L (46-116); Anion Gap 13.1 mEq/L (5-15); Aspartate Amino Transferase 19 U/L (15-37); Bilirubin,Total 0.3 mg/dL (0.2-1.0); Blood Urea Nitrogen 20 mg/dL (7-18); Calcium 9.7 mg/dL (8.5-10.1); Carbon Dioxide 27 mmol/L (21.0-32.0); Chloride 103 mmol/L (98-107); Creatinine,Serum 1.04 mg/dL (0.55-1.02); Estimated Glomerular Filt Rate 55 ml/min (>60); GFR (African American) 67 ML/MIN (>60); Globulin 3.7 gm/dl (1.3-3.2); Glucose 165 mg/dL (74-106); Potassium 4.1 mmoL/L (3.5-5.1); Sodium 139 mmol/L (136-145); Total Protein,Serum 7.4 gm/dL (6.4-8.2)
[2018-12-19 12:19] LABS: C-Reactive Protein < 0.2 mg/dL (0.0-0.9)
== END ==
PROVIDERS: Visit Provider Internal Medicine
DX: D89.9 Disorder involving the immune mechanism, unspecified (principal); M05.9 Rheumatoid arthritis with rheumatoid factor, unspecified; M79.7 Fibromyalgia; Z79.899 Other long term (current) drug therapy
CPT/HCPCS: 36415; 80053; 85025; 85651; 86140

== ENCOUNTER → 2019-01-24 13:35 | Outpatient (CLI) | payer OTHER, MEDICARE, SELFPAY ==
--- NOTE | 2019-01-24 13:40 | XR_ITS ---
PROCEDURE: XR FOOT WT BEARING LT 3V CLINICAL INDICATION: postop views Follow-up surgery/fusion COMPARISON: [id number] XR foot LT min 3V from 07/13/2018 FTWBL3 XR foot wt bearing LT 3V from 07/26/2018 FTWBL3 XR foot wt bearing LT 3V from 08/28/2018 FTWBL3 XR foot wt bearing LT 3V from 09/05/2018 ANKWBL3 XR ankle wt bearing LT min 3V from 09/05/2018 XR ANKLE WT BEARING LT MIN 3V from 01/24/2019 FINDINGS: Status post ankle fusion. Anterior bone plate remains in place with an L-shaped distally with screws within the distal tibia and talus with fusion of the ankle joint. There does appear to be bony fusion of the ankle joint. Talocalcaneal fusion with fusion of the posterior subtalar joint. The anterior subtalar joint does not appear fused. No fracture or dislocation. No lytic or blastic change. Status post distal amputation of the fibula. There remains a prominent zone of lucency along the distal aspect of the lag screws within the calcaneus into the talus. This is best demonstrated on the AP view of the ankle. IMPRESSION: Status post ankle and posterior subtalar fusion as described above with good alignment not significantly changed Dictated by: Edwar Oliver MD 01/24/2019 14:08 Electronically signed by Edwar Oliver MD in [place] 01/24/2019 14:08
== END ==
PROVIDERS: PCP Internal Medicine Adolescent Medicine; Visit Provider Podiatrist
DX: Z98.890 Other specified postprocedural states (principal); M25.572 Pain in left ankle and joints of left foot
CPT/HCPCS: 73610; 73630

== ENCOUNTER → 2019-02-18 13:25 | Outpatient (CLI) | payer OTHER, MEDICARE, SELFPAY ==
--- NOTE | 2019-02-18 13:27 | CT_ITS ---
PROCEDURE: CT FOOT LT WO CON CLINICAL HISTORY: s/p foot surgery, pain COMPARISON: XR FOOT WT BEARING LT 3V from 01/24/2019 TECHNIQUE: Axial images obtained with sagittal and coronal reformats. All CT scans at the facility use one or more dose reduction, viz: automated exposure control, ma/kV adjustment per patient size (including targeted exams where dose is matched to indication, i.e. head), or iterative reconstruction technique. FINDINGS: Again seen is the extensive metallic orthopedic hardware involving the left ankle with compression plate and fixation screws as well as fixation screws traversing the talocalcaneal joint. There is moderate generalized osteopenia. There is no acute fracture. There is moderate narrowing of the calcaneal/cuboid joint space and narrowing of the talocalcaneal joint with cortical irregularity and subchondral cyst formation. There is no radiopaque soft tissue foreign body however there is generalized indistinct soft tissue density surrounding the talus and calcaneal osseous structures and posterior to the tibial talar joint. Also noted is a small fragment of bone just anterior to the calcaneus and adjacent to the tip of the fixation screw, image number 122 from series 2. This could be dystrophic or related to the surgery itself. This is probably not a recent fracture. IMPRESSION: No acute fracture. Moderate generalized osteopenia. Degenerative joint changes which are more severe at the talocalcaneal joint an osseous fusion across the tibiotalar joint. Orthopedic hardware appears to be intact. There could be some generalized edema or fibrosis in the soft tissues medial and lateral to the ankle. Dictated by: Jovanny Gilbert 02/18/2019 14:23 Electronically signed by Jovanny Gilbert in [place] 02/18/2019 14:23
--- NOTE | 2019-02-18 13:48 | CA_ITS ---
APPROVED REPORT EXAM: Comprehensive 2D, Doppler, and color-flow Echocardiogram Flash Developer: Rubia Baldwin RVT Ht: 5 ft 8 in Wt: 280lbs BSA: 2.36 BP: 124/72 mmHg Indications: Atrial Fibrillation, Diabetes, Palpitations, Hypertension 2D Dimensions LVOT 2.10 cm (M/F) 1.5-2.5 M-Mode Dimensions RVDd 2.30 cm (0.9-2.6) LA Diam 3.10 cm (1.9-4.0) LVDd 5.20 cm (3.5-5.7) Ao Diam 2.90 cm (2.0-3.7) LVDs 3.50 cm (3.5-5.7) AV Cusp 2.20 cm (1.5-2.6) IVSd 1.30 cm (0.6-1.1) PWd 1.00 cm (0.6-1.1) EF (Teich) 60.80% FS 32.70% EDV (Teich) 130.00 mL ESV (Teich) 50.90 mL LV Diastology E/A Ratio 1.2 MED E' 7.80 (< 7 cm/sec) E'/MED E' Ratio 9.60 (>14) LAT E' 11.70 (<10 cm/sec) E/LAT E' Ratio 6.40 (>14) Aortic Valve AoV Peak Roverto. 101.00 (50-130 cm/s) AO Peak GR. 4.00 mmHg Mitral Valve MV E Max Roverto. 75.00 (40-130 cm/s) MV A Velocity 63.20 (40-130 cm/s) E/A Ratio 1.20 Pulmonary Valve PA Accel Time 116.00 (>120 msec) Tricuspid Valve TR P. Velocity 338.00 cm/s Left Ventricle Left atrium is mildly enlarged, left ventricle is normal size, mild concentric left ventricular hypertrophy, visually estimated ejection fraction 55% with no regional wall motion abnormality. Diastolic parameters are inconclusive. Right Ventricle Right atrium and right ventricular mildly enlarged with normal contractility. Aortic Valve Aortic valve is minimally thickened and fibrosed leaflet continue to display good mobility. There is no aortic stenosis or aortic insufficiency. Mitral Valve Mitral valve is grossly normal, there is mild mitral regurgitation. Tricuspid Valve Tricuspid valve is grossly normal, there is mild tricuspid regurgitation. Tricuspid addition reflux is inadequate for calculation of the right ventricular systolic pressure. Pulmonic Valve Pulmonic valve is poorly visualized. Great Vessels Aortic root is normal size. Pericardium No significant pericardial effusion noted. Conclusion 1. Mild biatrial enlargement, normal left ventricular size, mild concentric left ventricular hypertrophy, visually estimated ejection fraction 55% with no regional wall motion abnormality, diastolic parameters are inconclusive. 2. Mildly enlarged right ventricle with normal contractility. 3. Mild mitral and tricuspid regurgitation. 4. No significant pericardial effusion noted. Electronically signed by : Ino Cehn, 02/21/2019 16:37:35
== END ==
PROVIDERS: PCP Internal Medicine Adolescent Medicine; Visit Provider Podiatrist
DX: Z98.890 Other specified postprocedural states (principal); I10 Essential (primary) hypertension; I48.0 Paroxysmal atrial fibrillation; I51.9 Heart disease, unspecified
CPT/HCPCS: 73700; 93306

== ENCOUNTER → 2019-03-18 07:29 | Outpatient (CLI) | payer OTHER, MEDICARE, SELFPAY ==
[2019-03-18 08:04] LABS: Basophils % 0.7 % (0.1-2.0); Eosinophils # 0.4 K/mm3 (0.0-0.4); Eosinophils % 6.5 % (0.1-12.0); Hemoglobin 12.4 g/dL (12.2-16.2); Lymphocytes # 2.1 K/mm3 (0.7-4.5); Lymphocytes % 34.7 % (10-50); Mean Corpuscular Hemoglobin 27.1 pg (27.0-31.2); Mean Corpuscular Volume 87.3 fl (81-99); Mean Platelet Volume 7.4 fl (7.4-10.4); Monocytes # 0.4 K/mm3 (0.1-1.0); Monocytes % 6.6 % (1.7-9.3); Neutrophils # 3.2 K/mm3 (1.8-7.8); Neutrophils % 51.5 % (37.0-80.0); Platelet Count 328 K/mm3 (142-424); Red Blood Count 4.58 M/mm3 (4.20-5.40); Red Cell Distribution Width 17.1 % (11.5-17.5); White Blood Count 6.2 K/mm3 (4.8-10.8)
[2019-03-18 10:15] LABS: Erythrocyte Sedimentation Rate 13 mm/hr (0-30)
[2019-03-18 10:47] LABS: Alanine Aminotransferase 17 U/L (12-78); Albumin Level 3.7 gm/dL (3.4-5.0); Albumin/Globulin Ratio 1.1 (1.1-1.8); Alkaline Phosphatase 88 U/L (46-116); Anion Gap 13.3 mEq/L (5-15); Aspartate Amino Transferase 18 U/L (15-37); Bilirubin,Total 0.5 mg/dL (0.2-1.0); Blood Urea Nitrogen 19 mg/dL (7-18); Calcium 9.9 mg/dL (8.5-10.1); Carbon Dioxide 27 mmol/L (21.0-32.0); Chloride 103 mmol/L (98-107); Creatinine,Serum 0.88 mg/dL (0.55-1.02); Estimated Glomerular Filt Rate 67 ml/min (>60); GFR (African American) 81 ML/MIN (>60); Globulin 3.5 gm/dl (1.3-3.2); Glucose 158 mg/dL (74-106); Potassium 4.3 mmoL/L (3.5-5.1); Sodium 139 mmol/L (136-145); Total Protein,Serum 7.2 gm/dL (6.4-8.2)
[2019-03-18 10:56] LABS: Chol/HDL Ratio 3.7 (1-3.5); Cholesterol 163 mg/dL (140-200); HDL Cholesterol 44 mg/dL (29-89); LDL Cholesterol 73 mg/dL (0-130); Triglycerides 231 mg/dL (30-200); VLDL Cholesterol 46 mg/dL (0-40)
[2019-03-18 11:04] LABS: C-Reactive Protein < 0.2 mg/dL (0.0-0.9)
[2019-03-18 12:40] LABS: Hemoglobin A1C 7.3 % (0.0-7.0)
[2019-03-19 11:10] LABS: Creatinine, Urine 57.7 mg/dL (Not Estab.); Microalbumin, Urine 23.3 ug/mL (Not Estab.)
[2019-03-19 13:00] LABS: Vitamin D 25 Hydroxy 23.4 ng/mL (30.0-100.0)
== END ==
PROVIDERS: Internal Medicine; Visit Provider Nurse Practitioner Family
DX: E11.9 Type 2 diabetes mellitus without complications (principal); M05.79 Rheumatoid arthritis with rheumatoid factor of multiple sites without organ or systems involvement
CPT/HCPCS: 36415; 80053; 80061; 82043; 82570; 82652; 83036; 85025; 85651; 86140

== ENCOUNTER → 2019-04-09 09:29 | Outpatient (CLI) | payer OTHER, MEDICARE, SELFPAY ==
--- NOTE | 2019-04-09 09:36 | XR_ITS ---
PROCEDURE: XR ANKLE WT BEARING LT MIN 3V CLINICAL INDICATION: post-op Follow-up surgery/fusion COMPARISON: ANKWBL3 XR ankle wt bearing LT min 3V from 07/26/2018 ANKWBL3 XR ankle wt bearing LT min 3V from 08/28/2018 ANKWBL3 XR ankle wt bearing LT min 3V from 09/05/2018 FTWBL3 XR foot wt bearing LT 3V from 09/05/2018 XR ANKLE WT BEARING LT MIN 3V from 01/24/2019 XR FOOT WT BEARING LT 3V from 04/09/2019 FINDINGS: No change status post ankle fusion with anterior bone plate anchored with multiple screws at the distal tibia and talus. Prior arthrodesis of the posterior tail 0 calcaneal joint with 2 screws. There is a longitudinal screw in the medial malleolar region and an additional oblique screw in within the lateral tibia into the talus. There has been osteotomy of the fibula. There remains good alignment. No obvious orthopedic hardware malfunction. Osteoarthritic changes are present involving the 1st metatarsophalangeal joint with generalized osteopenia of the foot and hammertoe deformity of the 2nd 3rd and 4th toes. IMPRESSION: Overall no change status post arthrodesis of the ankle and posterior talocalcaneal joint Dictated by: Edwar Oliver MD 04/09/2019 13:02 Electronically signed by Edwar Oliver MD in [place] 04/09/2019 13:02
== END ==
PROVIDERS: PCP Internal Medicine Adolescent Medicine; Visit Provider Podiatrist
DX: M25.572 Pain in left ankle and joints of left foot; Z98.890 Other specified postprocedural states
CPT/HCPCS: 73610; 73630

== ENCOUNTER 2019-05-21 10:00 | Outpatient (RCR) | payer OTHER, MEDICARE, SELFPAY ==
--- NOTE | 2019-04-23 10:45 | HMH.PTOPEV ---
PT Outpatient Evaluation Rehab PT Outpatient Evaluation Start: 04/23/19 10:10 Freq: Status: Active Protocol: Document 04/23/19 10:13 HUMBERTO (Rec: 04/23/19 10:45 HUMBERTO [id number]) Electronically Signed By Kilo Gordon, PT 04/23/19 10:13 Outpatient Therapy Subjective History Subjective History Pt presents w/chronic L ankle pain, s/p L ankle fusion , successful hardware fixation, however, pt still reports lingering pain since sx. Pt reports medial and lateral L ankle jt line pain most recently, and 'it feels better with this bone stimulator, the muscle relaxers, and the injection'. Pt reports increased L ankle pain with L LE in dependent non-weight bearing position. Chief Complaint Pain Symptom Type Ache,Sharp,Dull Symptoms Relieved By Rest/Positioning,Prescription Meds Symptoms Aggravated By Standing,Walking Prior Functional Limitations Standing,Walking Current Functional Limitations Housework,Standing,Walking Symptom Description Constant but Variable Level of pain today (0-10) 2 Pain scale - at its best (0-10) 1 Pain scale - at its worst (0-10) 10 Ankle/Foot Eval Gait Observation General Gait Pattern Observation Antalgic Gait Assistive Device Ambulation Assistive Device None Palpation Tenderness left Ankle/Foot Palpation Findings Tenderness Ankle/Foot Palpation Overall Comment medial and lateral talocrural jt/achilles tendon 3/4 ROM Ankle/Foot Dorsiflexion w/Knee Extended 0-5 Active Range Motion (degrees) Ankle/Foot Plantar Flexion Active Range 0-10 of Motion (degrees) Ankle/Foot Eversion Active Range of 0-5 Motion (degrees) Ankle/Foot Inversion Active Range of 0-25 Motion (degrees) MMT Ankle Dorsiflexion Strength Grade 5 Normal Ankle Plantarflexion Strength Grade 4- Good- Foot Eversion Strength Grade 4 Good Foot Inversion Strength Grade 5 Normal Special Tests Talar Tilt Test Positive Left Outpatient Therapy Assessment Impairments Problems/Impairmments Palpation Tenderness,Impaired Range of Motion,Impaired Strength,Impaired Gait Pattern ,Impaired Walking,Impaired Standing,Impaired Household Care,Subjective C/O Pain,
== END 2019-05-21 10:05 | disposition home or self-care (01) ==
LOC: PT 10:00
PROVIDERS: Visit Provider Podiatrist
DX: M76.62 Achilles tendinitis, left leg (principal); M67.88 Other specified disorders of synovium and tendon, other site
CPT/HCPCS: 97010; 97014; 97033; 97035; 97140; 97163; G0283

== ENCOUNTER → 2019-05-29 08:15 | Outpatient (CLI) | payer OTHER, MEDICARE, SELFPAY ==
[2019-05-29 08:57] LABS: Basophils % 0.6 % (0.1-2.0); Eosinophils # 0.5 K/mm3 (0.0-0.4); Eosinophils % 6.3 % (0.1-12.0); Hemoglobin 12.9 g/dL (12.2-16.2); Lymphocytes # 2.5 K/mm3 (0.7-4.5); Lymphocytes % 33.8 % (10-50); Mean Corpuscular HGB Conc 31.6 g/dL (31.8-35.4); Mean Corpuscular Hemoglobin 26.6 pg (27.0-31.2); Mean Corpuscular Volume 84.2 fl (81-99); Mean Platelet Volume 7.7 fl (7.4-10.4); Monocytes # 0.5 K/mm3 (0.1-1.0); Monocytes % 7.2 % (1.7-9.3); Neutrophils # 3.8 K/mm3 (1.8-7.8); Neutrophils % 52.1 % (37.0-80.0); Platelet Count 335 K/mm3 (142-424); Red Blood Count 4.87 M/mm3 (4.20-5.40); Red Cell Distribution Width 16.1 % (11.5-17.5); White Blood Count 7.3 K/mm3 (4.8-10.8)
[2019-05-29 10:21] LABS: Alanine Aminotransferase 18 U/L (12-78); Albumin Level 3.8 gm/dL (3.4-5.0); Alkaline Phosphatase 117 U/L (46-116); Anion Gap 11.2 mEq/L (5-15); Aspartate Amino Transferase 16 U/L (15-37); Bilirubin,Total 0.3 mg/dL (0.2-1.0); Blood Urea Nitrogen 22 mg/dL (7-18); Calcium 9.6 mg/dL (8.5-10.1); Carbon Dioxide 29 mmol/L (21.0-32.0); Chloride 101 mmol/L (98-107); Creatinine,Serum 0.95 mg/dL (0.55-1.02); Estimated Glomerular Filt Rate 61 ml/min (>60); GFR (African American) 74 ML/MIN (>60); Globulin 3.7 gm/dl (1.3-3.2); Glucose 217 mg/dL (74-106); Potassium 4.2 mmoL/L (3.5-5.1); Sodium 137 mmol/L (136-145); Total Protein,Serum 7.5 gm/dL (6.4-8.2)
[2019-05-29 10:28] LABS: C-Reactive Protein < 0.2 mg/dL (0.0-0.9)
[2019-05-29 21:14] LABS: Erythrocyte Sedimentation Rate 45 mm/hr (0-30)
[2019-05-30 08:22] LABS: Hep A Ab, IgM Negative (Negative); Hepatitis B Core Antibody IgM Negative (Negative); Hepatitis B Surface Antigen Negative (Negative)
[2019-05-31 06:29] LABS: Hepatitis C Antibody <0.1 s/co ratio (0.0-0.9)
[2019-06-02 17:56] LABS: QuantiFERON-TB Gold Plus Negative (Negative)
== END ==
PROVIDERS: Visit Provider Internal Medicine
DX: D89.9 Disorder involving the immune mechanism, unspecified (principal); M05.9 Rheumatoid arthritis with rheumatoid factor, unspecified; M79.7 Fibromyalgia; R53.83 Other fatigue; Z79.899 Other long term (current) drug therapy
CPT/HCPCS: 36415; 80053; 80074; 85025; 85651; 86140; 86480

== ENCOUNTER → 2019-06-04 11:25 | Outpatient (CLI) | payer OTHER, MEDICARE, SELFPAY ==
--- NOTE | 2019-06-04 11:36 | XR_ITS ---
PROCEDURE: XR ANKLE WT BEARING LT MIN 3V CLINICAL INDICATION: postop surgery COMPARISON: ANKWBL3 XR ankle wt bearing LT min 3V from 08/28/2018 ANKWBL3 XR ankle wt bearing LT min 3V from 09/05/2018 XR ANKLE WT BEARING LT MIN 3V from 01/24/2019 XR FOOT WT BEARING LT 3V from 04/09/2019 XR ANKLE WT BEARING LT MIN 3V from 04/09/2019 FINDINGS: Status post ankle joint fusion with anterior bone plate and multiple screws. The ankle joint does appear fused. There is fusion of the posterior subtalar joint as well. No change with no acute finding. Status post amputation of the distal IMPRESSION: No change status post ankle joint and posterior subtalar fusion Dictated by: Edwar Oliver MD 06/04/2019 13:58 Electronically signed by Edwar Oliver MD in [place] 06/04/2019 13:58
== END ==
PROVIDERS: PCP Internal Medicine Adolescent Medicine; Visit Provider Podiatrist
DX: Z98.890 Other specified postprocedural states (principal); M25.572 Pain in left ankle and joints of left foot
CPT/HCPCS: 73610

== ENCOUNTER → 2019-07-09 08:13 | Outpatient (CLI) | payer OTHER, MEDICARE, SELFPAY ==
--- NOTE | 2019-07-09 08:14 | MM_ITS ---
PROCEDURE: MM DIG SCREENING MAMM BI W/CAD CLINICAL INDICATION: SCREENING There is no personal or family history of breast cancer. COMPARISON: [facility] DIG MAMM-SCREEN FRANDY W/CAD from 09/29/2016 [facility] MM Dig screening mamm BI w/CAD from 03/30/2018 TECHNIQUE: Standard CC and MLO images and 3D Tomosynthesis was obtained. R2 CAD reviewed. FINDINGS: The breasts are composed primarily of fat with minimal scattered fibroglandular densities in each breast. There are 2 mole markers left breast. There is no suspicious lesion in either breast and no suspicious microcalcifications. Yuri images were reviewed. IMPRESSION: Fatty type breast parenchyma with no suspicious lesions seen BI-RAD Category: 2 Benign Finding(s) FOLLOW-UP: 1YR 1 Year Follow-up (A letter has been sent to the patient regarding results of the study.) Dictated by: Dr. Kenny Poole MD 07/09/2019 16:[address] Kenny Poole MD in [place] 07/09/2019 16:44
--- NOTE | 2019-07-09 08:15 | XR_ITS ---
PROCEDURE: XR DEXA AXIAL SKELETON CLINICAL HISTORY: POST MENOPAUSAL SCREENING COMPARISON: No exams were available for comparison FINDINGS: Using the left hip mineralization of femoral neck is 0.71 with T-score -1.2 consistent with osteopenia. Ten year fracture risk for major osteoporotic fracture would be 6.8 percent and that for hip fracture 0.4 percent. Using L1 through L4 vertebrae total bone mineral density is 1.04 with T-score 0 indicating normal mineralization IMPRESSION: Osteopenia of the left femoral neck with increased fracture risk with normal mineralization of the spine. Dictated by: Dominic Chopra 07/09/2019 11:32 Electronically signed by Dominic Chopra in [place] 07/09/2019 11:32
[2019-07-09 09:43] LABS: Basophils # 0.1 K/mm3 (0-0.2); Basophils % 0.8 % (0.1-2.0); Eosinophils # 0.5 K/mm3 (0.0-0.4); Eosinophils % 7.1 % (0.1-12.0); Hematocrit 38.9 % (37.0-47.0); Hemoglobin 12.4 g/dL (12.2-16.2); Lymphocytes # 2.6 K/mm3 (0.7-4.5); Mean Corpuscular HGB Conc 31.8 g/dL (31.8-35.4); Mean Corpuscular Hemoglobin 26.7 pg (27.0-31.2); Mean Corpuscular Volume 83.7 fl (81-99); Mean Platelet Volume 7.3 fl (7.4-10.4); Monocytes # 0.4 K/mm3 (0.1-1.0); Neutrophils # 3.5 K/mm3 (1.8-7.8); Platelet Count 301 K/mm3 (142-424); Red Blood Count 4.64 M/mm3 (4.20-5.40); Red Cell Distribution Width 16.4 % (11.5-17.5); White Blood Count 7.1 K/mm3 (4.8-10.8)
[2019-07-09 12:56] LABS: Chloride 100 mmol/L (98-107); Potassium 4.1 mmoL/L (3.5-5.1); Sodium 139 mmol/L (136-145)
[2019-07-09 12:58] LABS: Blood Urea Nitrogen 19 mg/dl (7-17); Estimated Glomerular Filt Rate 74 ml/min (>60); GFR (African American) 90 ML/MIN (>60)
[2019-07-09 12:59] LABS: Alanine Aminotransferase 19 U/L (12-78); Albumin Level 4.3 g/dl (3.5-5.0); Albumin/Globulin Ratio 1.5 (1.1-1.8); Alkaline Phosphatase 94 U/L (38-126); Anion Gap 14.1 mEq/L (5-15); Aspartate Amino Transferase 31 U/L (14-36); Bilirubin,Total 0.3 mg/dl (0.2-1.3); Calcium 10.1 mg/dl (8.4-10.2); Carbon Dioxide 29 mmol/L (22.0-30.0); Chol/HDL Ratio 3.8 (1-3.5); Cholesterol 165 mg/dl (140-200); Globulin 2.9 g/dL (1.3-3.2); Glucose 170 mg/dl (74-100); HDL Cholesterol 44 mg/dl (40-60); Total Protein,Serum 7.2 g/dl (6.3-8.2); Triglycerides 179 mg/dl (30-150); VLDL Cholesterol 36 mg/dL (0-40)
[2019-07-09 13:11] LABS: Direct LDL Cholesterol 105.79 mg/dL (100-129)
== END ==
PROVIDERS: PCP Internal Medicine Adolescent Medicine; Visit Provider Nurse Practitioner Family
DX: Z12.31 Encounter for screening mammogram for malignant neoplasm of breast (principal); Z13.820 Encounter for screening for osteoporosis; Z78.0 Asymptomatic menopausal state; E11.9 Type 2 diabetes mellitus without complications; I10 Essential (primary) hypertension; E78.2 Mixed hyperlipidemia; G47.33 Obstructive sleep apnea (adult) (pediatric); M05.79 Rheumatoid arthritis with rheumatoid factor of multiple sites without organ or systems involvement; E55.9 Vitamin D deficiency, unspecified; Z79.84 Long term (current) use of oral hypoglycemic drugs
CPT/HCPCS: 36415; 77063; 77067; 77080; 80053; 80061; 82652; 83036; 85025

== ENCOUNTER → 2019-10-10 10:22 | Outpatient (CLI) | payer OTHER, MEDICARE, SELFPAY | PROVIDERS: PCP Internal Medicine Adolescent Medicine; Visit Provider Internal Medicine Cardiovascular Disease | DX: I48.0 Paroxysmal atrial fibrillation (principal); R00.2 Palpitations | CPT/HCPCS: 93270 ==

== ENCOUNTER → 2019-12-18 07:44 | Outpatient (CLI) | payer OTHER, MEDICARE, SELFPAY ==
[2019-12-18 10:49] LABS: Cholesterol 166 mg/dl (140-200); Triglycerides 303 mg/dl (30-150); VLDL Cholesterol 61 mg/dL (0-40)
[2019-12-18 11:01] LABS: Direct LDL Cholesterol 88.45 mg/dL (100-129)
[2019-12-18 12:11] LABS: Chol/HDL Ratio 3.4 (1-3.5); HDL Cholesterol 49 mg/dl (40-60)
[2019-12-18 12:31] LABS: 25-OH Vitamin D, Total 36.3 ng/mL (30-100)
[2019-12-18 13:56] LABS: Hemoglobin A1C 7.6 % (4.0-6.0)
[2019-12-18 14:16] LABS: Creatinine,Urine Random 75 mg/dL (Not Estab.)
[2019-12-18 14:28] LABS: Microalbumin < 6.000 mg/L (0-16.7)
== END ==
PROVIDERS: Visit Provider Nurse Practitioner Family
DX: E78.2 Mixed hyperlipidemia (principal); E55.9 Vitamin D deficiency, unspecified; E11.9 Type 2 diabetes mellitus without complications; Z79.84 Long term (current) use of oral hypoglycemic drugs
CPT/HCPCS: 36415; 80061; 82043; 82306; 82570; 83036

== ENCOUNTER → 2020-01-13 15:43 | Outpatient (CLI) | payer OTHER, MEDICARE, SELFPAY ==
--- NOTE | 2020-01-13 15:52 | XR_ITS ---
PROCEDURE: XR FOOT WT BEARING LT 3V CLINICAL INDICATION: foot pain COMPARISON: CR FTWBL3 XR foot wt bearing LT 3V from 08/28/2018 CR FTWBL3 XR foot wt bearing LT 3V from 09/05/2018 CR XR FOOT WT BEARING LT 3V from 01/24/2019 CR XR FOOT WT BEARING LT 3V from 04/09/2019 CR XR ANKLE WT BEARING LT MIN 3V from 06/04/2019 CR XR ANKLE WT BEARING LT MIN 3V from 01/13/2020 FINDINGS: Osteoarthritic changes are present at the 1st metatarsophalangeal joint. There has been prior ankle joint fusion as well as talocalcaneal fusion as previously described not significantly changed. There has been amputation at distal aspect of the fibula similar to the previous exam IMPRESSION: Postsurgical change, no acute finding. Osteoarthritic change 1st MTP joint not significantly changed Dictated by: Edwar Oliver MD 01/13/2020 16:11 Edwar Oliver MD in [place] 01/13/2020 16:13
== END ==
PROVIDERS: PCP Internal Medicine Adolescent Medicine; Visit Provider Podiatrist
DX: M25.372 Other instability, left ankle (principal); Z98.890 Other specified postprocedural states
CPT/HCPCS: 73610; 73630

== ENCOUNTER → 2020-03-05 08:13 | Outpatient (CLI) | payer OTHER, MEDICARE, SELFPAY ==
[2020-03-05 08:55] LABS: Basophils # 0.1 K/mm3 (0-0.2); Basophils % 0.8 % (0.1-2.0); Eosinophils # 0.7 K/mm3 (0.0-0.4); Eosinophils % 9.9 % (0.1-12.0); Hematocrit 43.2 % (37.0-47.0); Lymphocytes # 1.8 K/mm3 (0.7-4.5); Lymphocytes % 25.1 % (10-50); Mean Corpuscular Hemoglobin 26.9 pg (27.0-31.2); Mean Corpuscular Volume 89.5 fl (81-99); Mean Platelet Volume 6.8 fl (7.4-10.4); Monocytes # 0.5 K/mm3 (0.1-1.0); Monocytes % 6.8 % (1.7-9.3); Neutrophils % 57.3 % (37.0-80.0); Platelet Count 274 K/mm3 (142-424); Red Blood Count 4.82 M/mm3 (4.20-5.40); Red Cell Distribution Width 16.8 % (11.5-17.5)
[2020-03-05 10:07] LABS: Erythrocyte Sedimentation Rate 15 mm/hr (0-30)
[2020-03-05 11:37] LABS: Alanine Aminotransferase 21 U/L (12-78); Albumin Level 4.2 g/dl (3.5-5.0); Albumin/Globulin Ratio 1.4 (1.1-1.8); Alkaline Phosphatase 119 U/L (38-126); Anion Gap 14.4 mEq/L (5-15); Aspartate Amino Transferase 34 U/L (14-36); Bilirubin,Total 0.2 mg/dl (0.2-1.3); Blood Urea Nitrogen 19 mg/dl (7-17); Calcium 10.4 mg/dl (8.4-10.2); Carbon Dioxide 28 mmol/L (22.0-30.0); Chloride 102 mmol/L (98-107); Chol/HDL Ratio 3.4 (1-3.5); Cholesterol 156 mg/dl (140-200); Estimated Glomerular Filt Rate 65 ml/min (>60); GFR (African American) 79 ML/MIN (>60); Globulin 3.1 g/dL (1.3-3.2); Glucose 193 mg/dl (74-100); HDL Cholesterol 46 mg/dl (40-60); Potassium 4.4 mmoL/L (3.5-5.1); Sodium 140 mmol/L (136-145); Total Protein,Serum 7.3 g/dl (6.3-8.2); Triglycerides 247 mg/dl (30-150); VLDL Cholesterol 49 mg/dL (0-40)
[2020-03-05 11:41] LABS: C-Reactive Protein 9.6 mg/L (0-4)
[2020-03-05 11:48] LABS: Direct LDL Cholesterol 89.09 mg/dL (100-129)
[2020-03-05 12:28] LABS: Hemoglobin A1C 8.2 % (4.0-6.0)
== END ==
PROVIDERS: Nurse Practitioner Family; Visit Provider Nurse Practitioner Family
DX: E78.2 Mixed hyperlipidemia (principal); E11.65 Type 2 diabetes mellitus with hyperglycemia; M05.79 Rheumatoid arthritis with rheumatoid factor of multiple sites without organ or systems involvement; D89.9 Disorder involving the immune mechanism, unspecified; M05.9 Rheumatoid arthritis with rheumatoid factor, unspecified; R53.83 Other fatigue
CPT/HCPCS: 36415; 80053; 80061; 83036; 85025; 85651; 86140

== ENCOUNTER 2020-04-01 17:03 | Emergency (ER) | payer OTHER, MEDICARE, SELFPAY ==
[2020-04-01 17:24] VITALS: BP 188/107; PULSE 105; RESP 20; O2SAT 100; BMI 41.8
--- NOTE | 2020-04-01 17:30 | HMH.EDUTC ---
[facility] Clinical Impression: UTI (urinary tract infection) Qualifiers: Urinary tract infection type: site unspecified Hematuria presence: with hematuria Qualified Code(s): N39.0 - Urinary tract infection, site not specified Disposition: Home, Self-Care Condition on Discharge: Good Instructions: Urinary Tract Infection Additional Instructions: Drink plenty of fluids. Take tylenol for pain or fever. Take the medications as directed. Follow up with your regular doctor. GO TO THE ER FOR ANY WORSENING SYMPTOMS The pyridium will make your urine turn orange, this is an expected side effect. It will stain your clothes if it comes into contact with them. Prescriptions: Ciprofloxacin HCl [Cipro 500mg Tab] 500 mg PO BID 7 Days #14 tab Transmission Status: Received by [facility] #[id number] Phenazopyridine HCl [Pyridium 200mg Tablet] 200 pow PO TID #6 tab Transmission Status: Received by [facility] #[id number] Referrals: Abhishek Griggs MD [Primary Care Provider] - Medical Decision Making - Medical Records Medical records reviewed: No: I reviewed the patient's medical records. - Pola Inquiry Pt receiving controlled substance: No Vital Signs: 04/01/20 17:24 04/01/20 18:32 Temperature 102.6 F H Temperature Source Oral Pulse Rate 105 H Pulse Rate [Radial] 105 H Respiratory Rate 20 20 Blood Pressure 168/98 H Blood Pressure [Right Arm] 188/107 H Blood Pressure Mean [Right Arm] 134 Blood Pressure Source Automatic Cuff Blood Pressure Source [Right Arm] Automatic Cuff Blood Pressure Position Sitting Blood Pressure Position [Right Arm] Sitting 02 Sat by Pulse Oximetry 100 Oxygen Delivery Method Room Air Room Air - Lab Data Lab results reviewed: Yes: I reviewed the patient's lab results. Lab Results 04/01/20 17:28: Influenza Type A Ag Negative, Influenza Type B Ag Negative 04/01/20 17:31: Urine Color Yellow, Urine Appearance Clear, Urine pH 6.0, Ur Specific [place] 1.015, Urine Protein Negative, Urine Glucose (UA) 1000, Urine Ketones Negative, Urine Blood 2+, Urine Nitrate Negative, Urine Bilirubin Negative, Urine Urobilinogen 0.2, Ur Leukocyte Esterase Negative 04/01/20 17:35: POC Glucose 155 H Orders (Tests/Meds): ED MEDICATIONS Discontinued Medications Generic Name Dose Route Start Last Admin Trade Name Anshu PRN Reason Stop Dose Admin Acetaminophen 975 mg 04/01/20 17:32 04/01/20 17:44 Acetaminophen 325mg Tab PO 04/01/20 17:33 975 mg ONCE ONE Administration ORDERS Category Date Time Status Covid-19 Nasal PCR Sendout Dylan Stat Lab 04/01/20 17:27 Received [facility] - General Stated complaint: GONZALEZ,weakness,Pain Time Seen by Provider: 04/01/20 17:30 Mode of Arrival: Ambulatory Source of Information: Patient Limitations: No Limitations Description of Symptoms (Recalled from Triage Doc. by RN): States that she has not been feeling well for a couple of days with aching, chills, fever, stomach upset. States sometimes this happens when she has a uti HEENT Symptoms (Recalled from RN notes): Yes Resp Symptoms (Recalled from RN notes): No Skin Symptoms (Recalled from RN notes): No MS Symptoms (Recalled from RN notes): No Functional Status (Recalled from RN notes): wnl - History of Present Illness Provider Complaint: She c/o 3 days of worsening low back pain and burning while urinating. - Related Data Home Medications Medication Instructions Recorded Confirmed esomeprazole magnesium 40 mg 40 mg PO ONCE 09/05/17 01/13/20 capsule,delayed release folic acid 1 mg tablet 1 mg PO ONCE 09/05/17 01/13/20 gabapentin 400 mg capsule 400 mg PO TID 09/05/17 01/13/20 hydrochlorothiazide 25 mg tablet 25 mg PO QAM 09/05/17 01/13/20 hydrocodone 7.5 mg-acetaminophen 1 tab PO Q6H PRN 09/05/17 01/13/20 300 mg tablet losartan 100 mg tablet 100 mg PO ONCE 09/05/17 01/13/20 rivaroxaban 20 mg tablet 20 mg PO QPM 09/05/17 01/13/20 cherise
[2020-04-01 17:42] LABS: Apearance,Urine Clear (Clear); Bilirubin,Urine Negative (Negative); Blood, Urine 2+ (Negative); Color,Urine Yellow (Yellow); Glucose,Urine (UA) 1000 (Negative); Ketones,Urine Negative (Negative); Protein,Urine Negative (Negative); Specific Gravity, Urine 1.015 (1.005-1.030); UTC Leukocyte Esterase,Urine Negative (Negative); UTC Nitrate,Urine Negative (Negative); Urobilinogen,Urine 0.2 EU/dl (0.2)
[2020-04-01 17:43] LABS: UTC Influenza A Antigen Negative (Negative); UTC Influenza B Antigen Negative (Negative)
[2020-04-01 17:44] LABS: POC Glucose,Bedside 155 (70-110)
[2020-04-01 18:32] VITALS: BP 168/98; PULSE 105; RESP 20; TEMP 39.2; O2SAT 100
[2020-04-03 15:47] LABS: Covid-19 Nasal PCR Sendout Lex Not Detected
== END 2020-04-01 18:58 | disposition home or self-care (01) ==
PROVIDERS: Emergency Provider Nurse Practitioner Family; PCP Internal Medicine Adolescent Medicine
DX: Z20.828 Contact with and (suspected) exposure to other viral communicable diseases (principal); N30.00 Acute cystitis without hematuria; E11.9 Type 2 diabetes mellitus without complications; K21.9 Gastro-esophageal reflux disease without esophagitis; I10 Essential (primary) hypertension; I48.0 Paroxysmal atrial fibrillation; F33.1 Major depressive disorder, recurrent, moderate; Z79.899 Other long term (current) drug therapy
CPT/HCPCS: 81003; 82962; 87804; 99201; U0004

== ENCOUNTER → 2020-04-03 15:48 | Outpatient (CLI) | payer OTHER, MEDICARE, SELFPAY ==
[2020-04-03 16:11] LABS: Basophils # 0.1 K/mm3 (0-0.2); Basophils % 1.3 % (0.1-2.0); Eosinophils # 0.1 K/mm3 (0.0-0.4); Eosinophils % 1.9 % (0.1-12.0); Hematocrit 45.1 % (37.0-47.0); Hemoglobin 14.1 g/dL (12.2-16.2); Lymphocytes # 1.4 K/mm3 (0.7-4.5); Lymphocytes % 35.1 % (10-50); Mean Corpuscular HGB Conc 31.3 g/dL (31.8-35.4); Mean Corpuscular Volume 86.4 fl (81-99); Mean Platelet Volume 6.9 fl (7.4-10.4); Monocytes # 0.4 K/mm3 (0.1-1.0); Monocytes % 8.7 % (1.7-9.3); Neutrophils # 2.1 K/mm3 (1.8-7.8); Platelet Count 205 K/mm3 (142-424); Red Blood Count 5.23 M/mm3 (4.20-5.40); Red Cell Distribution Width 16.2 % (11.5-17.5)
[2020-04-03 17:06] LABS: Chloride 98 mmol/L (98-107); Potassium 4.1 mmoL/L (3.5-5.1); Sodium 136 mmol/L (136-145)
[2020-04-03 17:08] LABS: Alanine Aminotransferase 39 U/L (12-78); Aspartate Amino Transferase 87 U/L (14-36); Blood Urea Nitrogen 16 mg/dl (7-17); Estimated Glomerular Filt Rate 74 ml/min (>60); GFR (African American) 90 ML/MIN (>60)
[2020-04-03 17:09] LABS: Albumin Level 4.7 g/dl (3.5-5.0); Albumin/Globulin Ratio 1.3 (1.1-1.8); Alkaline Phosphatase 97 U/L (38-126); Anion Gap 16.1 mEq/L (5-15); Bilirubin,Total 0.6 mg/dl (0.2-1.3); Calcium 10.6 mg/dl (8.4-10.2); Carbon Dioxide 26 mmol/L (22.0-30.0); Globulin 3.5 g/dL (1.3-3.2); Glucose 193 mg/dl (74-100); Lactate Dehydrogenase 291 U/L (313-618); Lipase 246 U/L (23-300); Total Protein,Serum 8.2 g/dl (6.3-8.2)
== END ==
PROVIDERS: Visit Provider Internal Medicine Adolescent Medicine
DX: R10.12 Left upper quadrant pain (principal)
CPT/HCPCS: 36415; 80053; 83615; 83690; 85025

== ENCOUNTER 2020-04-03 18:13 | Emergency (ER) | payer OTHER, MEDICARE, SELFPAY ==
[2020-04-03 18:14] VITALS: BP 140/78; PULSE 101; O2SAT 94
[2020-04-03 18:20] VITALS: BP 140/78; PULSE 100; RESP 18; TEMP 37.1; O2SAT 94; BMI 41.2
--- NOTE | 2020-04-03 18:35 | CT_ITS ---
PROCEDURE: CT ABDOMEN PELVIS W CON CLINICAL INDICATION: fever, lower back pain Epigastric pain with nausea and fever the, low back pain COMPARISON: CT ABDPELW/O CT ABD PELVIS W/O CONTRAST from 11/26/2015 TECHNIQUE: IV Contrast: 75ML Isovue 370 Oral Contrast None Axial images obtained with sagittal and coronal reformats. All CT scans at the facility use one or more dose reduction, viz: automated exposure control, ma/kV adjustment per patient size (including targeted exams where dose is matched to indication, i.e. head), or iterative reconstruction technique. FINDINGS: LOWER THORAX: There are atelectatic changes in the right lower lobe. The subpleural nodular opacity is present in the left upper lobe laterally measuring seven mm. ABDOMEN & PELVIS: There is diffuse fatty liver with mild hepatomegaly.. There has been a prior cholecystectomy. There is periportal adenopathy measuring up to 2.9 x 1.5 cm previously 2.7 by 1 cm. The adrenal glands and pancreas have an unremarkable appearance. No renal or ureteral calculi. No hydronephrosis. Mild splenomegaly at 15 cm. Mild hepatomegaly at 23 cm. No intestinal obstruction or free air. No evidence appendicitis. There is colonic diverticulosis but no evidence of diverticulitis. No pelvic mass or abnormal fluid collection. Small focus of gas is present in the urinary bladder on the left. Degenerative changes are present in the lower thoracic spine and lower lumbar spine with postsurgical changes of the lumbar spine at L4-5 and L5-S1 IMPRESSION: 1. Hepatosplenomegaly with fatty liver. 2. Portal adenopathy etiology indeterminate. 3. Small focus of gas in the urinary bladder. Has patient had recent instrumentation? If not then, infection is a consideration. 4. Diverticulosis without diverticulitis. 5. Degenerative changes of the thoracic and lumbar spine with prior lumbar surgery at L4-5 and L5 and S1 Dictated by: Edwar Oliver MD 04/04/2020 06:08 Edwar Oliver MD in [place] 04/04/2020 06:08
[2020-04-03 18:52] LABS: Lactic Acid 1.1 mmol/L (0.7-2.1)
--- NOTE | 2020-04-03 19:14 | HMH.EDGENADL ---
ED Disposition Clinical Impression: Abdominal pain Qualifiers: Abdominal location: upper abdomen, unspecified Qualified Code(s): R10.10 - Upper abdominal pain, unspecified Fever Qualifiers: Fever type: unspecified Qualified Code(s): R50.9 - Fever, unspecified Back pain Qualifiers: Back pain location: low back pain Chronicity: acute Back pain laterality: bilateral Sciatica presence: without sciatica Qualified Code(s): M54.5 - Low back pain Disposition: Home, Self-Care Condition on Discharge: Fair Instructions: DI for Abdominal Pain-Adult, DI for Fever (Symptom) -- Adult Additional Instructions: Stop Ozempic until further instructed by Dr. North. Continue Cipro. Zofran for nausea. Call Dr. North tomorrow morning for follow-up. Return to the ER for worsening pain, vomiting, distension, uncontrollable fever. Prescriptions: Ondansetron [Zofran 4mg ODT] 4 mg PO TIDP PRN #10 tab.rapdis PRN Reason: Nausea And Vomiting Transmission Status: Pending to [facility] Referrals: Shikha Grimm APRN [Primary Care Provider] - - Critical Care Critical Care Time: No Attestation: On , the high probability of a clinically significant, sudden or life threatening deterioration of the following system(s) required my full and direct attention, intervention and personal management. The time I documented below is in addition to time spent performing reported procedures but includes the following listed in this critical care notation. Medical Decision Making - Medical Records Medical records reviewed: Yes: I reviewed the patient's medical records. MR Comment: Reviewed [facility] visit from 04/01/2020. Labs reviewed from that visit. No urine culture performed. - Pola Inquiry Pt receiving controlled substance: No Vital Signs: 04/03/20 18:14 04/03/20 18:20 Temperature 98.8 F Temperature Source Oral Pulse Rate [Right Radial] 101 H 100 H Respiratory Rate 18 Blood Pressure [Right Arm] 140/78 140/78 Blood Pressure Mean [Right Arm] 98 98 Blood Pressure Source [Right Arm] Automatic Cuff Automatic Cuff Blood Pressure Position [Right Arm] Sitting Sitting 02 Sat by Pulse Oximetry 94 L 94 L Oxygen Delivery Method Room Air Room Air - Lab Data Lab Results 04/03/20 18:30: Lactate 1.1 11/13/20 18:30: C-Reactive Protein 26.0 H 04/03/20 18:35: Urine Color Yellow, Urine Appearance [place], Urine pH 5.5, Ur Specific [place] 1.010, Urine Protein 2+, Urine Glucose (UA) 3+, Urine Ketones Trace, Urine Blood 1+, Urine Nitrate Positive, Urine Bilirubin Negative, Urine Urobilinogen 4.0, Ur Leukocyte Esterase Negative, Urine RBC 5-10, Urine WBC 5-10, Ur Squamous Epith Cells 3-5, Urine Bacteria Trace Orders (Tests/Meds): ED MEDICATIONS Discontinued Medications Generic Name Dose Route Start Last Admin Trade Name Freq PRN Reason Stop Dose Admin Iopamidol 75 ml 04/03/20 19:20 04/03/20 19:21 Iopamidol-370 (76%);100ml Bottle IV 04/03/20 19:21 75 ml ONCE ONE Administration Ioversol 75 ml 04/03/20 19:19 Ioversol-350 (74%) 100ml Vial IV 04/03/20 19:20 ONCE ONE Protocol Ondansetron HCl 4 mg 04/03/20 19:31 04/03/20 19:56 Ondansetron 4mg/2ml Vial IV 04/03/20 19:32 4 mg ONCE ONE Administration Sodium Chloride 10 ml 04/03/20 19:19 04/03/20 19:21 Sodium Chloride 0.9% 10ml Syr (Rad Only) IV 04/03/20 19:20 10 ml ONCE ONE Administration Sodium Chloride 10 ml 04/03/20 19:20 Sodium Chloride 0.9% 10ml Syr (Rad Only) IV 04/03/20 19:21 ONCE ONE Sodium Chloride 1,000 ml 04/03/20 19:31 04/03/20 19:56 Sodium Chloride 0.9% 1000ml Bag IV 04/03/20 19:32 1,000 ml BOLUS ONE Administration ORDERS Category Date Time Status CT abdomen pelvis w con Stat Cat Scan 04/03/20 18:35 Taken ESR [Erythrocyte Sedimentation Rate] Stat Lab 04/03/20 18:30 Received Blood Culture Stat Micro 04/03/20 18:30 Received - CT Data CT Scan: Abdomen, Pelvis Time Received:
[2020-04-03 19:17] LABS: Microscopic, Urine URINE MICROSCOPIC (MICROSCOPIC)
--- NOTE | 2020-04-03 19:20 | PC.NURSE ---
pt return from CT
[2020-04-03 19:27] LABS: Bilirubin,Urine Negative (Negative); Blood, Urine 1+ (Negative); Color,Urine YELLOW (Yellow); Glucose,Urine (UA) 3+ (Negative); Ketones,Urine TRACE (Negative); Leukocyte Esterase,Urine Negative (Negative); Nitrate,Urine POSITIVE (Negative); PH,Urine 5.5 (5.0-8.5); Protein,Urine 2+ (Negative)
[2020-04-03 19:29] LABS: Appearance,Urine ORANGE (Clear)
--- NOTE | 2020-04-03 20:00 | PC.NURSE ---
Dr Coley spoke with Dr Haro for admission
[2020-04-03 20:02] LABS: Bacteria,Urine Trace /lpf
[2020-04-03 20:28] LABS: Erythrocyte Sedimentation Rate 42 mm/hr (0-30)
[2020-04-03 20:56] VITALS: BP 117/78; PULSE 85; RESP 16; TEMP 36.6; O2SAT 94
== END 2020-04-03 20:58 | disposition home or self-care (01) ==
PROVIDERS: Emergency Provider Emergency Medicine; PCP Nurse Practitioner Family
DX: R10.10 Upper abdominal pain, unspecified (principal); M54.5 Low back pain; N39.0 Urinary tract infection, site not specified; I48.20 Chronic atrial fibrillation, unspecified; E11.9 Type 2 diabetes mellitus without complications; K21.9 Gastro-esophageal reflux disease without esophagitis; I10 Essential (primary) hypertension; Z79.899 Other long term (current) drug therapy
CPT/HCPCS: 74177; 81001; 83605; 85651; 86140; 87040; 96365; 96375; 99284; J2405; Q9967

== ENCOUNTER → 2020-04-07 10:27 | Outpatient (CLI) | payer OTHER, MEDICARE, SELFPAY ==
[2020-04-07 11:30] LABS: Adenovirus,PCR Not Detected (NotDetected); Bordetella Pertussis Not Detected (NotDetected); Chlamydophila Pneumoniae, PCR Not Detected (NotDetected); Coronavirus 19, PCR Not Detected (NotDetected); Coronavirus 229E Not Detected (NotDetected); Coronavirus NL63 Not Detected (NotDetected); Coronavirus OC43 Not Detected (NotDetected); Coronovirus HKU1,PCR Not Detected (NotDetected); Human Metapneumovirus Not Detected (NotDetected); Influenza A, PCR Not Detected (NotDetected); Influenza AH1, 2009 Not Detected (NotDetected); Influenza AH1, PCR Not Detected (NotDetected); Influenza AH3,PCR Not Detected (NotDetected); Influenza B, PCR Not Detected (NotDetected); Mycoplasma Pneumoniae, PCR Not Detected (NotDetected); Parainfluenza 1, PCR Not Detected (NotDetected); Parainfluenza 2, PCR Not Detected (NotDetected); Parainfluenza 3, PCR Not Detected (NotDetected); Parainfluenza 4, PCR Not Detected (NotDetected); Respiratory Syncytial Virus Not Detected (NotDetected); Rhinovirus/Enterovirus Not Detected (NotDetected)
== END ==
PROVIDERS: PCP Nurse Practitioner Family; Visit Provider Nurse Practitioner Family
DX: Z03.818 Encounter for observation for suspected exposure to other biological agents ruled out (principal); R50.9 Fever, unspecified
CPT/HCPCS: 87581; 87633; 87798

== ENCOUNTER 2020-04-07 17:34 | Observation (INO) | payer OTHER, MEDICARE, SELFPAY ==
[2020-04-07 17:48] VITALS: BP 138/78; PULSE 114; RESP 20; TEMP 37.2; O2SAT 94; BMI 40.7
--- NOTE | 2020-04-07 17:53 | XR_ITS ---
PROCEDURE: XR CHEST 2V CLINICAL HISTORY: fever Fever and pain COMPARISON: CR CXR CHEST(2 VIEWS-NOT PORTABLE) from 02/26/2015 CR CXR2V XR chest 2V from 05/25/2017 CR CXR2V XR chest 2V from 05/01/2018 FINDINGS: The cardiomediastinal silhouette and pulmonary vascularity are within normal limits. The lungs are clear without infiltrates, suspicious nodules, or pleural effusions. There is a bone plate over the lower cervical spine. No acute bony findings. IMPRESSION: No acute findings. Dictated by: Edwar Oliver MD 04/08/2020 05:25 Edwar Oliver MD in [place] 04/08/2020 05:25
[2020-04-07 18:03] LABS: Microscopic, Urine URINE MICROSCOPIC (MICROSCOPIC)
[2020-04-07 18:10] VITALS: BP 127/81; PULSE 95; RESP 20; O2SAT 93
[2020-04-07 18:20] LABS: Chloride 99 mmol/L (98-107)
[2020-04-07 18:21] LABS: Appearance,Urine CLEAR (Clear); Bilirubin,Urine Negative (Negative); Blood, Urine TRACE-I (Negative); Color,Urine YELLOW (Yellow); Glucose,Urine (UA) 3+ (Negative); Ketones,Urine Negative (Negative); Leukocyte Esterase,Urine Negative (Negative); Nitrate,Urine Negative (Negative); PH,Urine 5.5 (5.0-8.5); Protein,Urine Negative (Negative); Specific Gravity, Urine 1.025 (1.005-1.030); Urobilinogen,Urine 0.2 EU/dl (0.2)
[2020-04-07 18:21] LABS: Potassium 3.8 mmoL/L (3.5-5.1); Sodium 135 mmol/L (136-145)
[2020-04-07 18:22] LABS: Basophils % 0.5 % (0.1-2.0); Eosinophils # 0.2 K/mm3 (0.0-0.4); Hematocrit 43.3 % (37.0-47.0); Hemoglobin 14.1 g/dL (12.2-16.2); Lymphocytes # 1.2 K/mm3 (0.7-4.5); Lymphocytes % 25.6 % (10-50); Mean Corpuscular HGB Conc 32.5 g/dL (31.8-35.4); Mean Corpuscular Hemoglobin 27.7 pg (27.0-31.2); Mean Corpuscular Volume 85.1 fl (81-99); Mean Platelet Volume 7.2 fl (7.4-10.4); Monocytes # 0.4 K/mm3 (0.1-1.0); Platelet Count 219 K/mm3 (142-424); Red Blood Count 5.09 M/mm3 (4.20-5.40); Red Cell Distribution Width 16.9 % (11.5-17.5); White Blood Count 4.8 K/mm3 (4.8-10.8)
[2020-04-07 18:23] LABS: Alanine Aminotransferase 31 U/L (12-78); Alkaline Phosphatase 108 U/L (38-126); Anion Gap 15.8 mEq/L (5-15); Aspartate Amino Transferase 62 U/L (14-36); Bilirubin,Total 0.7 mg/dl (0.2-1.3); Blood Urea Nitrogen 22 mg/dl (7-17); Carbon Dioxide 24 mmol/L (22.0-30.0); Creatinine Clearance Estimated 122 mL/min (50-200); Estimated Glomerular Filt Rate 58 ml/min (>60); GFR (African American) 70 ML/MIN (>60)
[2020-04-07 18:24] LABS: Albumin Level 4.4 g/dl (3.5-5.0); Albumin/Globulin Ratio 1.2 (1.1-1.8); Calcium 10.3 mg/dl (8.4-10.2); Globulin 3.8 g/dL (1.3-3.2); Glucose 163 mg/dl (74-100); Total Protein,Serum 8.2 g/dl (6.3-8.2)
[2020-04-07 18:27] LABS: Lactic Acid 1.5 mmol/L (0.7-2.1)
--- NOTE | 2020-04-07 18:32 | HMH.EDGENADL ---
ED Disposition Clinical Impression: Febrile illness Headache Qualifiers: Headache type: unspecified Headache chronicity pattern: acute headache Intractability: intractable Qualified Code(s): R51.9 - Headache, unspecified Disposition: Admitted as Observation Condition on Discharge: Fair Referrals: Shikha Grimm APRN [Primary Care Provider] - - Critical Care Critical Care Time: No Attestation: On 04/07/20, the high probability of a clinically significant, sudden or life threatening deterioration of the following system(s) required my full and direct attention, intervention and personal management. The time I documented below is in addition to time spent performing reported procedures but includes the following listed in this critical care notation. Medical Decision Making - Medical Records Medical records reviewed: Yes: I reviewed the patient's medical records. - Pola Inquiry Pt receiving controlled substance: Yes Pola was queried for this patient: No Reason not queried -: Emergent pt cond-no time Risks and benefits of using a controlled substance: were not discussed with pt by me Vital Signs: 04/07/20 17:48 04/07/20 18:10 Temperature 98.9 F Temperature Source Oral Pulse Rate [Right Radial] 114 H 95 H Respiratory Rate 20 20 Blood Pressure [Right Arm] 138/78 127/81 Blood Pressure Mean [Right Arm] 98 96 Blood Pressure Source [Right Arm] Automatic Cuff Blood Pressure Position [Right Arm] Sitting 02 Sat by Pulse Oximetry 94 L 93 L Oxygen Delivery Method Room Air Room Air - Lab Data Lab Results 04/07/20 17:54: Urine Color Yellow, Urine Appearance Clear, Urine pH 5.5, Ur Specific [place] 1.025, Urine Protein Negative, Urine Glucose (UA) 3+, Urine Ketones Negative, Urine Blood Trace-i, Urine Nitrate Negative, Urine Bilirubin Negative, Urine Urobilinogen 0.2, Ur Leukocyte Esterase Negative, Urine RBC 5-10, Urine WBC 3-5, Ur Squamous Epith Cells 3-5, Urine Bacteria Trace 04/07/20 18:00: WBC 4.8, RBC 5.09, Hgb 14.1, Hct 43.3, MCV 85.1, MCH 27.7, MCHC 32.5, RDW 16.9, Plt Count 219, MPV 7.2 L, Neut % (Auto) 62.0, Lymph % (Auto) 25.6, [place] % (Auto) 8.0, Eos % (Auto) 4.0, Baso % (Auto) 0.5, Neut # (Auto) 3.0, Lymph # (Auto) 1.2, [place] # (Auto) 0.4, Eos # (Auto) 0.2, Baso # (Auto) 0.0 04/07/20 18:00: Sodium 135 L, Potassium 3.8, Chloride 99, Carbon Dioxide 24, Anion Gap 15.8 H, BUN 22 H, Creatinine 1.00, Estimated Creat Clear 122, Estimated GFR 58 L, Est GFR ( Amer) 70, Glucose 163 H, Calcium 10.3 H, Total Bilirubin 0.7, AST 62 H, ALT 31, Alkaline Phosphatase 108, Total Protein 8.2, Albumin 4.4, Globulin 3.8 H, Albumin/Globulin Ratio 1.2 04/07/20 18:00: Lactate 1.5 04/07/20 18:00: SARS-CoV-2 IgG Ab (Rapid) Negative, SARS-CoV-2 IgM Ab (Rapid) Negative 04/07/20 18:00: Group A Strep Rapid Negative 04/07/20 18:00: ESR 71 H 04/07/20 18:00: C-Reactive Protein 51.1 H 04/07/20 18:00: Procalcitonin 0.499 Result diagrams: 04/07/20 18:00 04/07/20 18:00 Orders (Tests/Meds): ED MEDICATIONS Generic Name Dose Route Start Last Admin Trade Name Freq PRN Reason Stop Dose Admin Sodium Chloride 1,000 mls @ 999 mls/hr 04/07/20 18:00 04/07/20 18:09 Sod Chlor 0.9% 1000ml Bag IV 04/07/20 19:00 999 mls/hr .Q1H1M ASCENCION Administration Ceftriaxone Sodium 2 gm/ 50 mls @ 100 mls/hr 04/07/20 20:45 Sodium Chloride IV 04/21/20 20:44 Q24H ASCENCION Protocol Discontinued Medications Generic Name Dose Route Start Last Admin Trade Name Freq PRN Reason Stop Dose Admin Acetaminophen 1,000 mg 04/07/20 18:09 04/07/20 18:09 Acetaminophen 500mg Tab PO 04/07/20 18:10 1,000 mg ONCE ONE Administration Morphine Sulfate 4 mg 04/07/20 19:45 04/07/20 19:47 Morphine 4mg/Ml Syringe IV 04/07/20 19:46 4 mg ONCE ONE Administration Ondansetron HCl 4 mg 04/07/20 18:35 04/07/20 18:39 Ondansetron 4mg/2ml Vial IV 04/07/20 18:36 4 mg ONCE ONE Administration Ondansetron HCl 4 mg 04/07/20
[2020-04-07 18:33] LABS: Strep Scrn Group A (Rapid) Negative (Negative)
--- NOTE | 2020-04-07 18:33 | CT_ITS ---
PROCEDURE: CT HEAD/BRAIN WO CON CLINICAL INDICATION: headache COMPARISON: CT HWWO CT HEAD-W/WO CONTRAST from 04/09/2013 TECHNIQUE: Axial images obtained. All CT scans at the facility use one or more dose reduction, viz: automated exposure control, ma/kV adjustment per patient size (including targeted exams where dose is matched to indication, i.e. head), or iterative reconstruction technique. FINDINGS: No midline shift, mass effect, intracranial hemorrhage, hydrocephalus, or extra-axial fluid collection is evident. The calvarium has an unremarkable appearance. No mastoid effusion. No sinus air-fluid level. IMPRESSION: No acute intracranial finding Dictated by: Edwar Oliver MD 04/08/2020 06:08 Edwar Oliver MD in [place] 04/08/2020 06:08
[2020-04-07 18:36] LABS: Bacteria,Urine Trace /lpf
[2020-04-07 18:43] LABS: Coronavirus 19 IgG Antibody Negative (Negative); Coronavirus 19 IgM Antibody Negative (Negative)
[2020-04-07 19:32] LABS: C-Reactive Protein 51.1 mg/L (0-4)
[2020-04-07 19:37] LABS: Erythrocyte Sedimentation Rate 71 mm/hr (0-30)
[2020-04-07 20:08] LABS: Procalcitonin 0.499 ng/mL (0.0-2.0)
--- NOTE | 2020-04-07 20:41 | P.PCN_ITS ---
[facility] Procedure Note Procedure Note:: 0755: Dr. Coley consulted anesthesia for LP due to suspected difficulty, hx of lumbar fusion, hx of PDPH post myelogram. Pt verified, consented to procedure. Pt sitting position, sterile prep/technique, betadine preop, midline approach, 1% lidocaine 5 ml used for bleb. L3-4, attempt x2, 24g Pencan used with stylet, negative para, negative heme, positive CSF. Four test tubes 2ml each provided. Pt tolerated procedure well.
[2020-04-07 21:14] LABS: Glucose,CSF 76 mg/dl (40-70)
[2020-04-07 21:17] VITALS: BMI 40.3
[2020-04-07 21:35] LABS: Appearance,CSF Clear (Clear)
[2020-04-07 21:36] LABS: Red Blood Cell,CSF 1 cells/uL (0); Volume,CSF 8 mL; White Blood Cell,CSF 1 cells/uL (0-5)
--- NOTE | 2020-04-07 21:38 | PC.NURSE ---
PT ARRIVED TO THE FLOOR VIA W/C FROM ED W/STAFF AT 2661
[2020-04-07 21:46] VITALS: BP 127/81; PULSE 95; RESP 20; TEMP 37.2; O2SAT 93
[2020-04-07 21:55] VITALS: BP 100/57; PULSE 71; RESP 20; TEMP 37; O2SAT 94
[2020-04-07 22:07] LABS: POC Glucose,Bedside 117 (70-110)
[2020-04-07 22:15] VITALS: PULSE 71; RESP 20; O2SAT 94
[2020-04-07 23:01] LABS: Mononuclear WBCs,CSF 92 %; Polynuclear WBCs,CSF 8 %
[2020-04-08] VITALS (10 sets, daily range): BP systolic 96–146; BP diastolic 40–88; PULSE 70–95; RESP 14–22; TEMP 36.6–38.8; O2SAT 93–98; BMI 40.1
--- NOTE | 2020-04-08 04:41 | PC.NURSE ---
shift summary, no acute changes since prior assessment, pt has ambulated independently to the bathroom, at 0245 pt rang out for temperature to be taken, pt was shaking and said she was cold, temperature was 101.1 and was treated with tylenol per JUL, on recheck at 0400 temperature was 99.9, pt has home CPAP at bedside and has worn it off and on this shift, O2 sat 94-95%, HR 71-88, no complaints of pain, SOA, lumbar puncture site not draining any noticeable fluid
[2020-04-08 06:18] LABS: POC Glucose,Bedside 113 (70-110)
--- NOTE | 2020-04-08 07:35 | P.CONPHA_ITS ---
[facility] Pharmacy VTE Monitoring - Patient Demographics Admission date: 04/08/20 Report Date: 04/08/20 Time: 07:36 Allergies/Adverse Reactions: Patient Allergies Penicillins Allergy (Intermediate, Verified 04/07/20 22:04) I-RASH Height: 1.73 m Weight: 120.287 kg Patient Problems: Current Active Problems (Last Updated 02/07/19 @ 12:19 by Dixie Delaney RN) Febrile illness (Acute) Headache (Acute) - VTE Risk Labs: VTE Related Lab Results Hgb 14.1 g/dL (12.2-16.2) 04/07/20 18:00 Hct 43.3 % (37.0-47.0) 04/07/20 18:00 Plt Count 219 K/mm3 (142-424) 04/07/20 18:00 BUN 22 mg/dl (7-17) H 04/07/20 18:00 Creatinine 1.00 mg/dl (0.52-1.04) 04/07/20 18:00 Estimated Creat Clear 122 mL/min (50-200) 04/07/20 18:00 VTE Score: 5 VTE Risk Level: Low Risk Clinical Trial Participant: No - Prophylaxis VTE Prophylaxis Ordered?: Yes Types of VTE Prophylaxis: TEDS Knee High
--- NOTE | 2020-04-08 08:04 | HMH.HP ---
*Admission Date: 04/08/20 *Chief complaint: Fever/chills/headache *History of present illness: Patient has been sick for 11 days. She has had fevers, up to 102 degrees plus, which have generally only been occurring in the evening, but she has had a fever all day today. She has chills and rigors. She has had headaches. She has had mid to lower back pain, which she has chronically but it is worse. She had severe upper abdominal pain earlier in the illness, but that is essentially completely gone. She denies urinary symptoms. No rhinorrhea, sore throat, cough. No rashes. No inflamed joints. No vomiting or diarrhea, but has had nausea. She was seen in the urgent treatment center here on 04/01/2020. She had a negative flu test. She had a urine analysis that showed microscopic hematuria. She was diagnosed with urinary tract infection and prescribed Cipro. Urine culture was not done. She was seen by Dr. North, primary care provider, on 04/03/2020. He performed blood work and wanted to get an outpatient CT scan of her abdomen, as at that time her abdominal pain was her chief complaint along with the fever. Insurance denied CT scan and the patient was sent to emergency department for work-up. She was seen by me in this emergency department on 04/03/2020. At that time her main complaints were pain in her back and upper abdomen and fever. She had a very tender abdomen, however CT scan was very unrevealing, just showing questionably thickened wall of the stomach. Work-up was unremarkable except for elevated inflammatory markers. Dr. North preferred to manage the patient as an outpatient and patient's daughter says that she called him the next day. He advised her to be seen by the nurse practitioner in their office on Monday, yesterday, which she did. She has had 2 - Covid tests. She says that she had a very bad night last night. Unrelenting fever and chills and her headache now is much worse over the past 2 days. She called nurse practitioner again today who advised her to come to the emergency department to be seen and to hold her last dose of Cipro. Upper respiratory panel with Covid testing was also performed today as an outpatient and is all negative. Above note per emergency [id number] in the emergency department also included lumbar puncture which looks normal at this point. Patient reports no significant outdoor exposure, no rash, reports lots of body aches, chills and myalgias. No specific arthralgias. She feels a little better this morning after IV fluids. [facility] History I have reviewed the patient's past medical history: Yes Medical History: Reports:: Atrial Fibrillation, Depression, Diabetes Mellitus Type 2, Gastroesophageal Reflux Disease(GERD), Hypertension Denies:: Cancer, Diabetes Mellitus Type 1, Internal Pacemaker, MRSA, Seizures *Have you ever received a pneumonia vaccine?: Yes *Have you received a flu vaccine this season?: Yes Other Medical History: Reports: Arthritis, Fibromyalgia, Other. Denies: Blood Transfusion Reaction Laterality Cases: Right: Arthroscopy Shoulder Other Surgeries: Yes: No Previous Surgery, Cholecystectomy, Other. No: Pacemaker Amputation: No Fractures: No - *Social History Last grade of school completed: High school graduate Smoking Status: Never smoker Alcohol Intake: never Alcohol Intake Frequency:: holidays/special occasions only Substance Use Type: denies use *Occupational Status:: retired Housing: house Household Members: significant other *Travel in the last 8 weeks: None - Psychiatric History Pschychiatric History:: Reports:: Depression Family Hx:: Hypertension Review of Systems - Review of Systems Review of systems:: pertinent systems reviewed and negative unless documented below - *Neurologic Reports headache(s), Denies numbness, Denies weakness Meds Home Medications Medication Instructions Recorded Confirmed Type esomeprazole magnesium 40 mg 40 mg PO ONCE 0
--- NOTE | 2020-04-08 09:17 | HMH.PHAINT ---
HOME MEDICATION LIST COMPLETED USING LIST FROM [facility], [facility]. ALSO PT INTERVIEW
[2020-04-08 11:21] LABS: POC Glucose,Bedside 128 (70-110)
--- NOTE | 2020-04-08 15:46 | CT_ITS ---
PROCEDURE: CT ANGIO CHEST CLINCIAL INDICATION: R/O PE Pain and shortness of air COMPARISON: CT ABDPELW/O CT ABD PELVIS W/O CONTRAST from 11/26/2015 TECHNIQUE: IV Contrast: 70ML Isovue 370 Axial images obtained with sagittal and coronal reformats. All CT scans at the facility use one or more dose reduction, viz: automated exposure control, ma/kV adjustment per patient size (including targeted exams where dose is matched to indication, i.e. head), or iterative reconstruction technique. FINDINGS: HEART AND MEDIASTINAL STRUCTURES: Pulmonary artery opacification is somewhat limited. There is no evidence of pulmonary embolus. No evidence of aortic aneurysm or dissection. There is mild mediastinal and left hilar adenopathy. Left hilar nodes measure up to 2 x 1.7 cm and mediastinal nodes measure up to 2 x 1.4 cm. LUNGS AND PLEURAL SPACES: There are some atelectatic changes in the lung bases. No lobar consolidation or collapse. There is a subpleural opacity in the lingula 64 series 3 measuring 11 x 10 mm. This is indeterminate and could be inflammatory/infectious or neoplastic. This was not present on previous abdomen CT of 11/26/2015 which covered this portion of the lung BONY STRUCTURES: There are degenerative changes in thoracic spine with mild thoracic curvature convex right. UPPER ABDOMEN: Diffuse fatty liver infiltration with hepatomegaly. Liver measures up to 27 cm in AP dimension. There are few small nodes in the epigastric region and there is a mildly prominent lymph node in the portal area at 2.5 by 1.4 cm. ADDITIONAL FINDINGS: No other significant abnormalities. IMPRESSION: 1. There is an indeterminate 11 x 10 mm subpleural nodule in the lingula. This was not present on the previous abdomen CT of 11/26/2015. This could be neoplastic or inflammatory/infectious. PET CT may provide further evaluation. This is not readily amenable to percutaneous biopsy. Alternatively, 1 could do a follow-up chest CT in 3 months to ascertain for any change. 2. Mediastinal and left hilar adenopathy. There is also an enlarged portal lymph node. Consider CT abdomen and pelvis to look for other areas of adenopathy. Adenopathy could be seen with infection/inflammation or neoplasm such as metastasis or lymphoma. 3. No evidence of pulmonary embolus or aortic aneurysm or dissection Dictated by: Edwar Oliver MD 04/09/2020 07:05 Edwar Oliver MD in [place] 04/09/2020 07:05
--- NOTE | 2020-04-08 15:55 | ECG_ITS ---
APPROVED REPORT Exam: Resting ECG HR:77 bpm ECG Measurements Heart Rate 77 AXES NJ 176 P 28 QRSd 110 QRS 54 QT 410 T 31 QTc 463 Conclusion Normal sinus rhythm Low voltage QRS Incomplete right bundle branch block Borderline ECG Electronically signed by : Abhishek Griggs, 04/10/2020 19:22:50
[2020-04-08 16:37] LABS: POC Glucose,Bedside 132 (70-110)
--- NOTE | 2020-04-08 16:53 | PC.NURSE ---
1535 - Pt's daughter came to nurse's station stating pt was getting up to use bathroom and had a sharp pain below right breast that took her breath brandie. Pt found to be sitting on side of bed grabbing RUQ. VS : 146/88, 76 bpm, 98.3., 22 resp, 98%RA Dr Griggs on floor and notified. 1540 - Orders obtained for Pepcid 20 mg IV x1, 30 Mylanta PO, stat EKG, and Stat Chest CTA per PE protocol. RT and Rad notified. EKG obtained at bedside @ 1555, see by Dr. Griggs 1557 - Pt down to CT per wheelchair at this time. Pt back from CT, states that pain is no longer sharp, but is still present. IV morphine and zofran given per JUL. Temp when returning back from CT noted to be 99.4. Daughter present at bedside. Call sang w/in reach. Pt resting in bed, no needs at this time.
[2020-04-08 20:28] LABS: POC Glucose,Bedside 135 (70-110)
[2020-04-09] VITALS (7 sets, daily range): BP systolic 109–128; BP diastolic 62–70; PULSE 68–77; RESP 14–18; TEMP 36.6–39; O2SAT 90–96; BMI 40.3
--- NOTE | 2020-04-09 04:00 | PC.NURSE ---
PT. FEBRILE FOR MAJORITY OF SHIFT; TX WITH TYLENOL AND MOTRIN PER [facility] WE[facility] ACTIVE COOLING MEASURES. PT. HAD ONE EPISODE OF NAUSEA, NO VOMITING; TX WITH ZOFRAN. C/O SLIGHT H/A WHEN CHILLED . NO NEEDS AT THIS TIME, DAUGHTER AT BEDSIDE.
[2020-04-09 05:44] LABS: POC Glucose,Bedside 116 (70-110)
[2020-04-09 07:04] LABS: Basophils % 0.7 % (0.1-2.0); Eosinophils # 0.1 K/mm3 (0.0-0.4); Eosinophils % 3.2 % (0.1-12.0); Hematocrit 38.8 % (37.0-47.0); Hemoglobin 12.2 g/dL (12.2-16.2); Lymphocytes # 1.3 K/mm3 (0.7-4.5); Lymphocytes % 30.4 % (10-50); Mean Corpuscular HGB Conc 31.4 g/dL (31.8-35.4); Mean Corpuscular Hemoglobin 27.3 pg (27.0-31.2); Mean Platelet Volume 7.7 fl (7.4-10.4); Monocytes # 0.4 K/mm3 (0.1-1.0); Monocytes % 8.7 % (1.7-9.3); Neutrophils # 2.5 K/mm3 (1.8-7.8); Neutrophils % 57.1 % (37.0-80.0); Platelet Count 193 K/mm3 (142-424); Red Blood Count 4.47 M/mm3 (4.20-5.40); Red Cell Distribution Width 16.7 % (11.5-17.5); White Blood Count 4.4 K/mm3 (4.8-10.8)
[2020-04-09 07:14] LABS: Chloride 105 mmol/L (98-107)
[2020-04-09 07:15] LABS: Potassium 3.3 mmoL/L (3.5-5.1); Sodium 138 mmol/L (136-145)
[2020-04-09 07:17] LABS: Alanine Aminotransferase 24 U/L (12-78); Albumin Level 3.6 g/dl (3.5-5.0); Alkaline Phosphatase 75 U/L (38-126); Aspartate Amino Transferase 67 U/L (14-36); Bilirubin,Total 0.4 mg/dl (0.2-1.3); Blood Urea Nitrogen 12 mg/dl (7-17); Creatinine Clearance Estimated 135 mL/min (50-200); Estimated Glomerular Filt Rate 65 ml/min (>60); GFR (African American) 79 ML/MIN (>60)
[2020-04-09 07:18] LABS: Albumin/Globulin Ratio 1.1 (1.1-1.8); Anion Gap 8.3 mEq/L (5-15); Carbon Dioxide 28 mmol/L (22.0-30.0); Globulin 3.3 g/dL (1.3-3.2); Glucose 128 mg/dl (74-100); Total Protein,Serum 6.9 g/dl (6.3-8.2)
[2020-04-09 07:27] LABS: Calcium 9.1 mg/dl (8.4-10.2)
--- NOTE | 2020-04-09 08:25 | P.PN_ITS ---
Internal Medicine - PN: Subj *Date: 04/09/20 *Time: 08:25 Interval history: Patient continues to have fevers but feels better, and this morning is afebrile. Notes that her abdominal pain is still present but Pepcid did some good in regards to significant relief. Exam Vital signs and Labs for Last 24 Hours: Temp Pulse Resp BP Pulse Ox 97.8 F 69 18 124/70 96 04/09/20 07:19 04/09/20 07:19 04/09/20 07:19 04/09/20 07:19 04/09/20 07:19 Laboratory Results - last 24 hr 04/08/20 11:09: POC Glucose 128 H 04/08/20 16:27: POC Glucose 132 H 04/08/20 20:02: POC Glucose 135 H 04/09/20 05:26: POC Glucose 116 H 04/09/20 06:10: WBC 4.4 L, RBC 4.47, Hgb 12.2, Hct 38.8, MCV 87.0, MCH 27.3, MCHC 31.4 L, RDW 16.7, Plt Count 193, MPV 7.7, Neut % (Auto) 57.1, Lymph % (Auto) 30.4, [place] % (Auto) 8.7, Eos % (Auto) 3.2, Baso % (Auto) 0.7, Neut # (Auto) 2.5, Lymph # (Auto) 1.3, [place] # (Auto) 0.4, Eos # (Auto) 0.1, Baso # (Auto) 0.0 04/09/20 06:10: Sodium 138, Potassium 3.3 L, Chloride 105, Carbon Dioxide 28, Anion Gap 8.3, BUN 12 D, Creatinine 0.90, Estimated Creat Clear 135, Estimated GFR 65, Est GFR ( Amer) 79, Glucose 128 H, Calcium 9.1 D, Total Bilirubin 0.4, AST 67 H, ALT 24, Alkaline Phosphatase 75, Total Protein 6.9, Albumin 3.6, Globulin 3.3 H, Albumin/Globulin Ratio 1.1 I & O for Last 24 hours: Intake & Output 04/06/20 04/07/20 04/08/20 04/09/20 11:59 11:59 11:59 11:59 Intake Total 2162 / 2162 3064 / 3064 Balance 216 / 216 3064 / 3064 Weight 265 lb 3 oz 266 lb 2 oz Microbiology Reports for the Last 24 Hours: Microbiology 04/07/20 20:30 Cerebral Spinal Fluid Gram Stain - Final 04/07/20 20:30 Cerebral Spinal Fluid CSF Culture - Preliminary NO GROWTH AFTER 24 HOURS 04/07/20 18:00 Urine,Clean Catch Urine Culture - Preliminary NO GROWTH AFTER 24 HOURS Narrative: Alert, oriented. No rash. No joint swelling. ENT exam clear. No JVD. Lungs are much improved with better air entry. Less abdominal pain. Abdomen soft nontender. Neurologically intact. Assessment and Plan (1) Febrile illness Status: Acute Category: Medical Code(s): R50.9 - Fever, unspecified (2) Headache Status: Acute Qualifiers: Headache type: unspecified Headache chronicity pattern: acute headache Intractability: intractable Qualified Code(s): R51.9 - Headache, unspecified Category: Medical Code(s): R51.9 - Headache, unspecified (3) Abdominal pain Status: Acute Category: Medical Code(s): R10.9 - Unspecified abdominal pain - Assessment and plan all Dx Assessment and Plan for all problems:: Overall patient is improving. Doxycycline seems to have helped. I reviewed the results of the CAT scan with patient, she will need outpatient follow-up of the lymphadenopathy issues. Hopefully discharge tomorrow depending on serologic results and fever curve.
[2020-04-09 10:51] LABS: POC Glucose,Bedside 144 (70-110)
[2020-04-09 16:02] LABS: POC Glucose,Bedside 155 (70-110)
--- NOTE | 2020-04-09 20:04 | PC.NURSE ---
PATIENT A&O X4, LUNG CLEAR, PULSES EQUAL. PATIENT HAD NO FEVER FOR THIS RN SHIFT UNTIL 1854. THIS RN ASSESSED TEMPERATURE. 99.5 ORAL. THIS RN ADMINISTERED TYLENOL AND IBUPROFEN. THIS RN RECHECKED TEMPERATURE 1939 DURING BEDSIDE REPORT, 102.2. THIS RN ALONG WITH PAMELA RN ENCOURAGED PATIENT TO LEAVE BLANKETS OFF. PATIENT REFUSED, PATIENT STATED THAT SHE IS TOO COLD. NO OTHER CONCERNS AT THIS TIME.
[2020-04-09 22:36] LABS: POC Glucose,Bedside 169 (70-110)
[2020-04-10] VITALS (7 sets, daily range): BP systolic 118–139; BP diastolic 53–81; PULSE 75–89; RESP 16–22; TEMP 36.6–38.1; O2SAT 90–96; BMI 41.4
[2020-04-10 01:13] LABS: RMSF, IgG, EIA Negative (Negative)
--- NOTE | 2020-04-10 03:43 | PC.NURSE ---
Pt has slept at intervals. Has had elevated temps at times this shift. Upon arrival. AM nurse took temp and it was greater than 102. Wash cloth was applied. Room temp was decreased and blankets were taken off bed. Tylenol and Ibuprofen was not able to be administered due to recent administration. Soon after, pt called out and stated that she thought her fever had broke. Temp was taken again and it had returned to baseline. Pt called out this AM and stated that she was cold and felt that her temp had increased. Temp was obtained resulting 99.3. Tylenol administered. Will continue to monitor temp. No other complaints. Other VSS. Medication administered per jul. Call light within reach. Family at bedside.
[2020-04-10 05:23] LABS: POC Glucose,Bedside 152 (70-110)
--- NOTE | 2020-04-10 05:29 | PC.NURSE ---
Pt c/o headache and has elevated temp. Ibuprofen administered. Family concerned about O2 of 90%. Pt given incentive spirometer and encouraged to ambulate more and sit in chair. Lungs are diminished. Will continue to monitor.
--- NOTE | 2020-04-10 06:23 | HMH.ACPN2 ---
Internal Medicine - PN: Subj *Date: 04/10/20 *Time: 13:16 Interval history: Pt reports feeling better this morning however had an episode yesterday where she had fever and rigors and states she felt awful . Took Tylenol and ibuprofen and they had no benefit at the time. After symptoms improved over 1 to 2 hours, she finally felt somewhat better. Tolerating PO intake, normal stooling/UOP. No emesis, SOA, CP. When has fever, she develops pain in her right upper quadrant. Otherwise it is minimal discomfort in that region of her abdomen. Normal vitals this morning on exam. Sitting upright at bedside. Daughter in room on exam, updated on plan. Exam Vital signs and Labs for Last 24 Hours: Temp Pulse Resp BP Pulse Ox 100.6 F H 86 16 118/73 90 L 04/10/20 04:00 04/10/20 04:00 04/10/20 04:00 04/10/20 04:00 04/10/20 04:00 Laboratory Results - last 24 hr 04/09/20 06:10: WBC 4.4 L, RBC 4.47, Hgb 12.2, Hct 38.8, MCV 87.0, MCH 27.3, MCHC 31.4 L, RDW 16.7, Plt Count 193, MPV 7.7, Neut % (Auto) 57.1, Lymph % (Auto) 30.4, [place] % (Auto) 8.7, Eos % (Auto) 3.2, Baso % (Auto) 0.7, Neut # (Auto) 2.5, Lymph # (Auto) 1.3, [place] # (Auto) 0.4, Eos # (Auto) 0.1, Baso # (Auto) 0.0 04/09/20 06:10: Sodium 138, Potassium 3.3 L, Chloride 105, Carbon Dioxide 28, Anion Gap 8.3, BUN 12 D, Creatinine 0.90, Estimated Creat Clear 135, Estimated GFR 65, Est GFR ( Amer) 79, Glucose 128 H, Calcium 9.1 D, Total Bilirubin 0.4, AST 67 H, ALT 24, Alkaline Phosphatase 75, Total Protein 6.9, Albumin 3.6, Globulin 3.3 H, Albumin/Globulin Ratio 1.1 04/09/20 10:43: POC Glucose 144 H 04/09/20 15:49: POC Glucose 155 H 04/09/20 21:45: POC Glucose 169 H 04/10/20 04:58: POC Glucose 152 H I & O for Last 24 hours: Intake & Output 04/07/20 04/08/20 04/09/20 04/10/20 23:59 23:59 23:59 23:59 Intake Total 1170 / 1170 1472 / 1472 3304 / 3304 Balance 1170 / 1170 1472 / 1472 3304 / 3304 Weight 120.315 kg 120 kg 120.712 kg 124.001 kg Microbiology Reports for the Last 24 Hours: Microbiology 04/07/20 20:30 Cerebral Spinal Fluid Gram Stain - Final 04/07/20 20:30 Cerebral Spinal Fluid CSF Culture - Preliminary NO GROWTH AFTER 48 HOURS 04/07/20 18:00 Urine,Clean Catch Urine Culture - Final NO GROWTH AFTER 48 HOURS 04/07/20 18:08 Blood Blood Culture - Preliminary NO GROWTH AFTER 48 HOURS 04/07/20 18:08 Blood Blood Culture - Preliminary NO GROWTH AFTER 48 HOURS 04/07/20 18:00 Throat Group A Streptococcus Screen ([facility]) - Final Negative for Group A Streptococcus. - Constitutional no acute distress, obese - *Routine HEENT Exam Head: Present: normocephalic Eye: Present: EOMI, PERRL ENT: Present: mucous membranes moist Comments: fever blister on lower lip, right corner - *Routine Neck Exam Present: supple. Absent: lymphadenopathy - *Routine Respiratory Exam Present: CTA bilaterally - *Routine Cardiovascular Exam Present: RRR - *Routine Abdominal Exam Present: soft, normoactive bowel sounds, tenderness (mild in RUQ) - *Routine Extremities Exam Absent: cyanosis, clubbing, edema - *Routine Skin Exam Present: warm. Absent: rash - *Routine Neurological Exam Present: alert, oriented X3 Assessment and Plan (1) Rickettsia infection Status: Acute Category: Medical Code(s): A79.9 - Rickettsiosis, unspecified Rickettsia IgM returned positive. Given constellation of symptoms, this is the most likely etiology of her acute illness. We will continue doxycycline. Would like to see her be fever free for 24 hours prior to discharge home. (2) Febrile illness Status: Acute Category: Medical Code(s): R50.9 - Fever, unspecified (3) Headache Status: Acute Qualifiers: Headache type: unspecified Headache chronicity pattern: acute headache Intractability: intra
[2020-04-10 06:41] LABS: Chloride 106 mmol/L (98-107); Sodium 137 mmol/L (136-145)
[2020-04-10 06:42] LABS: Potassium 3.6 mmoL/L (3.5-5.1)
[2020-04-10 06:44] LABS: Alanine Aminotransferase 25 U/L (12-78); Albumin Level 3.4 g/dl (3.5-5.0); Alkaline Phosphatase 110 U/L (38-126); Anion Gap 10.6 mEq/L (5-15); Aspartate Amino Transferase 66 U/L (14-36); Bilirubin,Total 0.4 mg/dl (0.2-1.3); Blood Urea Nitrogen 11 mg/dl (7-17); Calcium 9.1 mg/dl (8.4-10.2); Carbon Dioxide 24 mmol/L (22.0-30.0); Creatinine Clearance Estimated 80 mL/min (50-200); Estimated Glomerular Filt Rate 74 ml/min (>60); GFR (African American) 90 ML/MIN (>60); Globulin 3.3 g/dL (1.3-3.2); Glucose 160 mg/dl (74-100); Total Protein,Serum 6.7 g/dl (6.3-8.2)
[2020-04-10 06:47] LABS: Basophils % 0.7 % (0.1-2.0); Eosinophils # 0.2 K/mm3 (0.0-0.4); Eosinophils % 4.1 % (0.1-12.0); Hemoglobin 12.1 g/dL (12.2-16.2); Lymphocytes # 1.2 K/mm3 (0.7-4.5); Lymphocytes % 26.4 % (10-50); Mean Corpuscular Hemoglobin 26.6 pg (27.0-31.2); Mean Corpuscular Volume 85.8 fl (81-99); Mean Platelet Volume 7.7 fl (7.4-10.4); Monocytes # 0.3 K/mm3 (0.1-1.0); Monocytes % 7.3 % (1.7-9.3); Neutrophils # 2.9 K/mm3 (1.8-7.8); Neutrophils % 61.5 % (37.0-80.0); Platelet Count 222 K/mm3 (142-424); Red Blood Count 4.54 M/mm3 (4.20-5.40); Red Cell Distribution Width 16.9 % (11.5-17.5); White Blood Count 4.6 K/mm3 (4.8-10.8)
[2020-04-10 09:00] LABS: Cytomegalovirus (CMV) Ab, IgM <30.0 AU/mL (0.0-29.9)
[2020-04-10 11:30] LABS: POC Glucose,Bedside 172 (70-110)
--- NOTE | 2020-04-10 14:37 | HMH.PULMCON ---
*Admission Date: 04/08/20 *Reason for consult:: Mediastinal adenopathy *History of present illness: Ms. Samano is a 54-year-old pleasant female was admitted to the hospital for fever of unknown origin. On further questioning patient stated that 2 weeks ago she initially noted to having fevers and night sweats and presented to the urgent care center which was prescribed antibiotics ciprofloxacin for a UTI and was discharged home. Over the next 5 days patient still having symptoms which eventually resolved and then the symptoms started coming back and getting worse for the last 3 days which patient eventually was admitted to the hospital. During this whole duration patient only complaints include abdominal discomfort for which she got a CT abdomen performed which is unremarkable. Patient denies any cough, any productive phlegm, any worsening breathing issues. Patient is a never smoker and denies any prior respiratory complaints. CTA was performed 2 days ago that showed mediastinal and hilar lymphadenopathy and pulmonary was called today for further evaluation. Also carries a history of rheumatoid arthritis, currently taking methotrexate and infliximab infusions, last infusion was 4 to 6 weeks ago. Patient states that her rheumatoid arthritis is at baseline with no worsening symptoms [facility] History Medical History: Reports:: Atrial Fibrillation, Depression, Diabetes Mellitus Type 2, Gastroesophageal Reflux Disease(GERD), Hypertension Denies:: Cancer, Diabetes Mellitus Type 1, Internal Pacemaker, MRSA, Seizures *Have you ever received a pneumonia vaccine?: Yes *Have you received a flu vaccine this season?: Yes Other Medical History: Reports: Arthritis, Fibromyalgia, Other. Denies: Blood Transfusion Reaction Laterality Cases: Right: Arthroscopy Shoulder Other Surgeries: Yes: No Previous Surgery, Cholecystectomy, Other. No: Pacemaker Amputation: No Fractures: No - *Social History Last grade of school completed: High school graduate Smoking Status: Never smoker Alcohol Intake: never Alcohol Intake Frequency:: holidays/special occasions only Substance Use Type: denies use *Occupational Status:: retired Housing: house Household Members: significant other *Travel in the last 8 weeks: None - Psychiatric History Pschychiatric History:: Reports:: Depression Family Hx:: Hypertension ROS - Cons Reports body ache(s), Reports chills - ENT Denies abnormal hearing - Card Reports irregular heart rhythm, Denies chest pain, Denies chest pain at rest, Denies shortness of breath with activity, Denies leg swelling - Resp Respiratory: No chest congestion, No cough, No non-productive cough, No dyspnea, No dyspnea on exertion, No excessive phlegm production, No coughing up blood, No pain on inspiration, No pain with cough, No cough with sputum production - GI Gastrointestingal: Reports: system reviewed and no additional complaints, except as docu - [place] Musculoskeletal: Reports system reviewed and no additional complaints, except as docu Meds Home Medications Medication Instructions Recorded Confirmed Type esomeprazole magnesium 40 mg 40 mg PO DAILY 09/05/17 04/10/20 History capsule,delayed release folic acid 1 mg tablet 1 mg PO DAILY 09/05/17 04/10/20 History gabapentin 400 mg capsule 400 mg PO TID 09/05/17 04/10/20 History hydrochlorothiazide 25 mg tablet 25 mg PO QAM 09/05/17 04/10/20 History hydrocodone 7.5 mg-acetaminophen 1 tab PO Q6H PRN 09/05/17 04/10/20 History 300 mg tablet losartan 100 mg tablet 100 mg PO DAILY 09/05/17 04/10/20 History rivaroxaban 20 mg tablet 20 mg PO QPM 09/05/17 04/10/20 History sitagliptin 50 mg-metformin ER 2 tab PO QPM 09/05/17 04/10/20 History 1,000 mg tablet,extended release 24h mp sucralfate 1 gram tablet 1 g PO BID 09/05/17 04/10/20 History diazePAM [diazePAM 5mg Tablet] 5 mg PO BID PRN tab 05/31/18 04/10/20 Rx Citalopram Hydrobromide 20 mg PO HS 07/12/18 04/10/20 History [Citalopram 20mg Tablet*
[2020-04-10 16:05] LABS: POC Glucose,Bedside 141 (70-110)
[2020-04-10 17:47] LABS: EBV Ab VCA, IgG >600.0 U/mL (0.0-17.9); EBV Ab VCA, IgM <36.0 U/mL (0.0-35.9); EBV Nuclear Antigen Ab, IgG >600.0 U/mL (0.0-17.9)
--- NOTE | 2020-04-10 20:02 | PC.NURSE ---
THIS RN ALONG WITH PATIENT'S DAUGHTER MINAL ZHENG INSPECTED PATIENT SKIN FROM HEAD TO TOE. NO TICKS FOUND. AREA ON RIGHT BOTTOM BUTTOCKS HAS 2 SMALL RED DOTS ENCIRCLED. PATIENT STARTED HAVING TEMPERATURE INCREASE AT 1700. FIRST ASSESSMENT WAS 99.0, SECOND ASSESSMENT WAS 102.7. THIS RN OFFERED ICE PACKS OR COOL WASHCLOTHS. PATIENT REFUSED BOTH. BLOOD CULTURES WERE DRAWN PER DR. JIMENEZ'S ORDERS. TYLENOL WAS ADMINISTERED, AT 1850 ORAL TEMPERATURE WAS 99.3. NO NEW CONCERNS AT THIS TIME.
[2020-04-10 21:15] LABS: POC Glucose,Bedside 124 (70-110)
[2020-04-11 04:00] VITALS: BP 130/60; PULSE 69; RESP 18; TEMP 36.4; O2SAT 88
[2020-04-11 05:00] VITALS: BMI 41.0
--- NOTE | 2020-04-11 05:59 | PC.NURSE ---
Pt. has not c/o pain, n/v/d, dizziness or soa. Pt. reported one episode of sweating/chills. Pt. has been afebrile this shift. Family at bedside.
[2020-04-11 08:00] VITALS: BP 126/77; PULSE 71; RESP 20; TEMP 36.8; O2SAT 94
[2020-04-11 08:04] LABS: Basophils % 0.6 % (0.1-2.0); Eosinophils # 0.3 K/mm3 (0.0-0.4); Eosinophils % 5.1 % (0.1-12.0); Hematocrit 40.7 % (37.0-47.0); Hemoglobin 12.9 g/dL (12.2-16.2); Lymphocytes # 1.9 K/mm3 (0.7-4.5); Lymphocytes % 35.6 % (10-50); Mean Corpuscular HGB Conc 31.6 g/dL (31.8-35.4); Mean Corpuscular Hemoglobin 26.9 pg (27.0-31.2); Mean Corpuscular Volume 85.3 fl (81-99); Mean Platelet Volume 7.5 fl (7.4-10.4); Monocytes # 0.4 K/mm3 (0.1-1.0); Monocytes % 6.8 % (1.7-9.3); Neutrophils # 2.7 K/mm3 (1.8-7.8); Neutrophils % 51.9 % (37.0-80.0); Platelet Count 262 K/mm3 (142-424); Red Blood Count 4.77 M/mm3 (4.20-5.40); Red Cell Distribution Width 16.8 % (11.5-17.5); White Blood Count 5.2 K/mm3 (4.8-10.8)
[2020-04-11 08:09] LABS: Chloride 108 mmol/L (98-107); Potassium 3.8 mmoL/L (3.5-5.1); Sodium 140 mmol/L (136-145)
[2020-04-11 08:12] LABS: Alanine Aminotransferase 29 U/L (12-78); Albumin Level 3.6 g/dl (3.5-5.0); Albumin/Globulin Ratio 1.1 (1.1-1.8); Alkaline Phosphatase 100 U/L (38-126); Anion Gap 9.8 mEq/L (5-15); Aspartate Amino Transferase 71 U/L (14-36); Bilirubin,Total 0.6 mg/dl (0.2-1.3); Blood Urea Nitrogen 9 mg/dl (7-17); Calcium 9.6 mg/dl (8.4-10.2); Carbon Dioxide 26 mmol/L (22.0-30.0); Creatinine Clearance Estimated 80 mL/min (50-200); Estimated Glomerular Filt Rate 74 ml/min (>60); GFR (African American) 90 ML/MIN (>60); Globulin 3.3 g/dL (1.3-3.2); Glucose 129 mg/dl (74-100); Total Protein,Serum 6.9 g/dl (6.3-8.2)
[2020-04-11 08:13] LABS: Magnesium 1.6 mg/dl (1.6-2.3)
--- NOTE | 2020-04-11 08:28 | HMH.DCSUM ---
General - General Admission date:: 04/07/20 Discharge date: 04/11/20 HPI HPI: Patient has been sick for 11 days. She has had fevers, up to 102 degrees plus, which have generally only been occurring in the evening, but she has had a fever all day today. She has chills and rigors. She has had headaches. She has had mid to lower back pain, which she has chronically but it is worse. She had severe upper abdominal pain earlier in the illness, but that is essentially completely gone. She denies urinary symptoms. No rhinorrhea, sore throat, cough. No rashes. No inflamed joints. No vomiting or diarrhea, but has had nausea. She was seen in the urgent treatment center here on 04/01/2020. She had a negative flu test. She had a urine analysis that showed microscopic hematuria. She was diagnosed with urinary tract infection and prescribed Cipro. Urine culture was not done. She was seen by Dr. North, primary care provider, on 04/03/2020. He performed blood work and wanted to get an outpatient CT scan of her abdomen, as at that time her abdominal pain was her chief complaint along with the fever. Insurance denied CT scan and the patient was sent to emergency department for work-up. She was seen by me in this emergency department on 04/03/2020. At that time her main complaints were pain in her back and upper abdomen and fever. She had a very tender abdomen, however CT scan was very unrevealing, just showing questionably thickened wall of the stomach. Work-up was unremarkable except for elevated inflammatory markers. Dr. North preferred to manage the patient as an outpatient and patient's daughter says that she called him the next day. He advised her to be seen by the nurse practitioner in their office on Monday, yesterday, which she did. She has had 2 - Covid tests. She says that she had a very bad night last night. Unrelenting fever and chills and her headache now is much worse over the past 2 days. She called nurse practitioner again today who advised her to come to the emergency department to be seen and to hold her last dose of Cipro. Upper respiratory panel with Covid testing was also performed today as an outpatient and is all negative. Above note per emergency [id number] in the emergency department also included lumbar puncture which looks normal at this point. Patient reports no significant outdoor exposure, no rash, reports lots of body aches, chills and myalgias. No specific arthralgias. She feels a little better this morning after IV fluids. Hospital Course Hospital Course: Patient was admitted, lumbar puncture was done, multiple cultures were repeated and patient was continued on broad-spectrum antibiotics. She failed to improve over the next couple of days and after further history taking and reconsideration of her symptomatology it was decided that she might need to be screened for tickborne diseases and doxycycline was started intravenously given her previous [place] to multiple different classes of antibiotics. Her [place] spotted fever IgM titer was strongly positive and after further history it was determined she had been camping a couple of weeks ago and may have been exposed. Total skin exam failed to show any rash or tick sites this late in the disease. She did improve symptomatically and fever curve improved. Because of abnormal CT findings of lung mass is a lymphadenitis pulmonary was consulted and they have recommended endobronchial bronchoscopy ultrasound of 1 of these lesions on Monday. Patient however feels better and wishes to be discharged home. She is eating well, drinking well, is in no hemodynamic distress and I agree that she can go home safely. Plan we did go home today. P.o. doxycycline. Fever control if needed with Tylenol and Motrin. She will stop aspirin and Xarelto tomorrow and report back here on Monday for outpatient endobronchial ultrasound-guided biopsy. Objective Vit
--- NOTE | 2020-04-11 11:11 | HMH.PHAINT ---
DISCHARGE COUNSELING COMPLETED ON PATIENT. NEW PRESCRIPTION FOR DOXYCYCLINE THAT WAS SENT TO CLINIC PHARMACY. PATIENT IS TO CONTINUE ALL OTHER HOME MEDICATIONS. HOLDING ASPIRIN AND XARELTO TOMORROW FOR PROCEDURE PER DR. FLOREZ'S NOTE. PATIENT VERBALIZED UNDERSTANDING AND HAD NO QUESTIONS AT THIS TIME. -KAREN JULIAN, EPID
[2020-04-11 11:20] LABS: POC Glucose,Bedside 128 (70-110)
--- NOTE | 2020-04-11 11:57 | PC.NURSE ---
THIS RN PROVIDED D/C INSTRUCTIONS TO PATIENT AND SPOUSE. PATIENT WAS PROVIDED OUTPATIENT LAB ORDER AND INSTRUCTED TO HAVE DONE IN MORNING OF 04/15/2020. PATIENT VERBALIZED AN UNDERSTANDING. THIS RN ALONG WITH DR. FLOREZ INSTRUCTED PATIENT TO BE AT [facility] 04/15/2020 BY 9:00 AM FOR BRONCHOSCOPY. NO NEW CONCERNS AT THIS TIME.
[2020-04-12 07:24] LABS: Peripheral Smear Review Scanned Result
[2020-04-12 09:22] LABS: Covid-19 Nasal PCR Sendout UK Not Detected
[2020-04-15 10:16] LABS: Fungitell(Beta D-Glucan) Serum <31 pg/mL (<80)
[2020-04-15 22:03] LABS: Lyme B. burgdorferi PCR Blood Negative (Negative)
== END 2020-04-11 11:39 | disposition home or self-care (01) ==
LOC: ER 20:47 → 2ND 21:13
PROVIDERS: Internal Medicine Adolescent Medicine; Admitting Provider Emergency Medicine; Emergency Provider Emergency Medicine; PCP Nurse Practitioner Family; Visit Provider Internal Medicine Adolescent Medicine
DX: A79.9 Rickettsiosis, unspecified (principal); I10 Essential (primary) hypertension; I48.0 Paroxysmal atrial fibrillation; E11.9 Type 2 diabetes mellitus without complications; E66.01 Morbid (severe) obesity due to excess calories; Z68.41 Body mass index [BMI] 40.0-44.9, adult; Z79.01 Long term (current) use of anticoagulants; Z79.52 Long term (current) use of systemic steroids; Z79.84 Long term (current) use of oral hypoglycemic drugs; Z79.899 Other long term (current) drug therapy; Z88.0 Allergy status to penicillin; R50.9 Fever, unspecified
CPT/HCPCS: 62270; 36415; 70450; 71046; 71275; 80053; 81001; 82945; 82962; 83605; 83735; 84145; 84155; 85025; 85651; 86140; 86328; 86609; 86618; 86645; 86664; 86665; 87040; 87070; 87086; 87205; 87385; 87430; 87449; 87476; 89051; 93005; 96365; 96367; 96375; 99284; G0378; J2405; Q9967; U0003

== ENCOUNTER → 2020-04-23 15:00 | Outpatient (CLI) | payer OTHER, MEDICARE, SELFPAY ==
[2020-04-23 15:37] LABS: Basophils # 0.1 K/mm3 (0-0.2); Basophils % 1.5 % (0.1-2.0); Eosinophils # 0.3 K/mm3 (0.0-0.4); Eosinophils % 4.6 % (0.1-12.0); Hematocrit 46.3 % (37.0-47.0); Hemoglobin 14.2 g/dL (12.2-16.2); Lymphocytes # 2.2 K/mm3 (0.7-4.5); Lymphocytes % 38.2 % (10-50); Mean Corpuscular HGB Conc 30.8 g/dL (31.8-35.4); Mean Corpuscular Hemoglobin 26.4 pg (27.0-31.2); Mean Corpuscular Volume 85.9 fl (81-99); Mean Platelet Volume 7.5 fl (7.4-10.4); Monocytes # 0.8 K/mm3 (0.1-1.0); Monocytes % 13.3 % (1.7-9.3); Neutrophils # 2.4 K/mm3 (1.8-7.8); Neutrophils % 42.4 % (37.0-80.0); Platelet Count 393 K/mm3 (142-424); Red Blood Count 5.38 M/mm3 (4.20-5.40); Red Cell Distribution Width 16.4 % (11.5-17.5); White Blood Count 5.6 K/mm3 (4.8-10.8)
[2020-04-23 15:59] LABS: Chloride 99 mmol/L (98-107); Sodium 138 mmol/L (136-145)
[2020-04-23 16:00] LABS: Potassium 4.5 mmoL/L (3.5-5.1)
[2020-04-23 16:02] LABS: Alanine Aminotransferase 24 U/L (12-78); Albumin Level 4.6 g/dl (3.5-5.0); Albumin/Globulin Ratio 1.1 (1.1-1.8); Alkaline Phosphatase 120 U/L (38-126); Anion Gap 14.5 mEq/L (5-15); Aspartate Amino Transferase 65 U/L (14-36); Bilirubin,Total 0.6 mg/dl (0.2-1.3); Blood Urea Nitrogen 15 mg/dl (7-17); Carbon Dioxide 29 mmol/L (22.0-30.0); Estimated Glomerular Filt Rate 74 ml/min (>60); GFR (African American) 90 ML/MIN (>60); Globulin 4.1 g/dL (1.3-3.2); Total Protein,Serum 8.7 g/dl (6.3-8.2)
[2020-04-23 16:03] LABS: Calcium 11.2 mg/dl (8.4-10.2); Glucose 188 mg/dl (74-100)
[2020-04-23 16:32] LABS: Thyroid Stimulating Hormone 1.37 uIU/mL (0.465-4.68)
[2020-04-23 16:42] LABS: Erythrocyte Sedimentation Rate 13 mm/hr (0-30)
== END ==
PROVIDERS: Visit Provider Nurse Practitioner Family
DX: M05.79 Rheumatoid arthritis with rheumatoid factor of multiple sites without organ or systems involvement (principal); R53.81 Other malaise
CPT/HCPCS: 36415; 80053; 84443; 85025; 85651

== ENCOUNTER → 2020-05-21 12:33 | Outpatient (CLI) | payer OTHER, MEDICARE, SELFPAY ==
--- NOTE | 2020-05-21 12:44 | CT_ITS ---
PROCEDURE: CT CHEST W CON Referring Doctor: Edmund Bingham Patient Age:55Y CLINICAL HISTORY: Nodule adenopathy Follow-up adenopathy history [place] spotted fever COMPARISON: CT ABDPELW/O CT ABD PELVIS W/O CONTRAST from 11/26/2015 [facility] MM DIG SCREENING MAMM BI W/CAD from 07/09/[address] ABDOMEN PELVIS W CON from 04/03/[address] ANGIO CHEST from 04/08/2020 TECHNIQUE: 75 cc Isovue 370 IV contrast utilized but the Axial images obtained with sagittal and coronal reformats. All CT scans at the facility use one or more dose reduction, viz: automated exposure control, ma/kV adjustment per patient size (including targeted exams where dose is matched to indication, i.e. head), or iterative reconstruction technique. FINDINGS: PACO AND MEDIASTINUM: There has been overall slight regression of the mediastinal adenopathy noted on April 08 CT chest but I would specifically note that at the AP window a collection of of moderately enlarged nodes is slightly less pronounced of for example this grouping of nodes overall measured up to 41.5 mm AP. Today it measures 36.5 mm. Largest node posteriorly at this grouping previously measured up to 20 x 12 mm. On today's study it measures 17.5 x 10.5 mm. The enlarged lymph node left paco has shown definite regression. Right paco unremarkable VASCULAR STRUCTURES: No evidence of pulmonary embolus or aortic aneurysm or dissection . LUNGS AND PLEURAL SPACES: Mild scarring and atelectatic changes in the lung bases. No lobar consolidation or collapse. The subpleural nodule axial periphery of the lingula has decreased in size, previously 11 mm-Now 7.5 mm.. BONY STRUCTURES: There are degenerative changes in thoracic spine with mild thoracic curvature convex right. . Mild asymmetry deep right breast, axial image 38 appear stable but would benefit from ongoing mammography UPPER ABDOMEN: Diffuse fatty liver infiltration with hepatomegaly. There are few small nodes in the epigastric region appear stable if not incrementally smaller. Similarly notable for structure the portal region anterior to the IVC appears stable if not slightly smaller now measuring 23 x 12 mm (previously 25 x 14 mm) IMPRESSION: 1. Overall improvement since April 08 CT chest . Regression of adenopathy. Regression of small lingular pulmonary nodule 2.. Regression of Mediastinal and left hilar adenopathy.: .. Definite regression at the most prominent grouping of mediastinal nodes at AP window;. .. Clear regression of left hilar node in the interval as well. .. Below the diaphragm-previously noted generous portal node appears perhaps incrementally smaller. Small nodes at epigastric region stable to incrementally improved 3.... The small lingular subpleural long nodule previously discussed April 08 CT chest-has shown definite regression 4... Hepatic steatosis with hepatomegaly again noted 5... Minor area asymmetry deep right breast the appear stable but would encourage ongoing annual screening mammography follow-up June 2020 . Dictated by: Dale Kramer MD 05/22/2020 09:28 Dale Kramer MD in [place] 05/22/2020 09:28
[2020-05-21 12:59] LABS: Blood Urea Nitrogen 15 mg/dl (7-17); Estimated Glomerular Filt Rate 57 ml/min (>60); GFR (African American) 69 ML/MIN (>60)
== END ==
PROVIDERS: PCP Nurse Practitioner Family; Visit Provider Internal Medicine Pulmonary Disease
DX: R91.1 Solitary pulmonary nodule (principal); R59.0 Localized enlarged lymph nodes; R59.1 Generalized enlarged lymph nodes; E11.610 Type 2 diabetes mellitus with diabetic neuropathic arthropathy; R50.9 Fever, unspecified; R51.9 Headache, unspecified; Z79.84 Long term (current) use of oral hypoglycemic drugs
CPT/HCPCS: 36415; 71260; 82565; 84520; Q9967

== ENCOUNTER → 2020-07-21 15:29 | Outpatient (CLI) | payer OTHER, MEDICARE, SELFPAY ==
--- NOTE | 2020-07-21 15:40 | XR_ITS ---
PROCEDURE: XR FOOT WT BEARING LT 3V CLINICAL INDICATION: ankle pain Foot and ankle pain COMPARISON: CR XR ANKLE WT BEARING LT MIN 3V from 01/24/2019 CR XR ANKLE WT BEARING LT MIN 3V from 04/09/2019 CR XR ANKLE WT BEARING LT MIN 3V from 06/04/2019 CR XR ANKLE WT BEARING LT MIN 3V from 01/13/2020 CR XR FOOT WT BEARING LT 3V from 07/21/2020 FINDINGS: Prior ankle joint fusion with an anterior bone plate at the distal tibia and talus with a screw within the medial malleolus and an oblique screw directed from the lateral aspect of the distal tibia into the talus. There has been amputation of the distal aspect of the fibula. There has been prior posterior subtalar fusion with 2 screws present. This joint may not be completely fused with lucency noted posteriorly. CT may better evaluate if clinically desired. The anterior subtalar joint is widely patent. There are mild osteoarthritic changes of the talonavicular joint and 1st metatarsophalangeal joint. No acute fracture or dislocation. IMPRESSION: Postsurgical changes with fusion of the ankle and posterior subtalar joint. The posterior subtalar joint may not be completely fused and may be better evaluated with CT if clinically warranted. Dictated by: Edwar Oliver MD 07/21/2020 16:47 Edwar Oliver MD in [place] 07/21/2020 16:47
--- NOTE | 2020-07-21 15:40 | XR_ITS ---
PROCEDURE: XR ANKLE WT BEARING LT MIN 3V CLINICAL INDICATION: ankle pain Foot and ankle pain COMPARISON: CR XR ANKLE WT BEARING LT MIN 3V from 01/24/2019 CR XR ANKLE WT BEARING LT MIN 3V from 04/09/2019 CR XR ANKLE WT BEARING LT MIN 3V from 06/04/2019 CR XR ANKLE WT BEARING LT MIN 3V from 01/13/2020 CR XR FOOT WT BEARING LT 3V from 07/21/2020 FINDINGS: Prior ankle joint fusion with an anterior bone plate at the distal tibia and talus with a screw within the medial malleolus and an oblique screw directed from the lateral aspect of the distal tibia into the talus. There has been amputation of the distal aspect of the fibula. There has been prior posterior subtalar fusion with 2 screws present. This joint may not be completely fused with lucency noted posteriorly. CT may better evaluate if clinically desired. The anterior subtalar joint is widely patent. There are mild osteoarthritic changes of the talonavicular joint and 1st metatarsophalangeal joint. No acute fracture or dislocation. IMPRESSION: Postsurgical changes with fusion of the ankle and posterior subtalar joint. The posterior subtalar joint may not be completely fused and may be better evaluated with CT if clinically warranted. Dictated by: Edwar Oliver MD 07/21/2020 16:44 Edwar Oliver MD in [place] 07/21/2020 16:44
== END ==
PROVIDERS: PCP Internal Medicine Adolescent Medicine; Visit Provider Podiatrist
DX: M25.572 Pain in left ankle and joints of left foot (principal)
CPT/HCPCS: 73610; 73630

== ENCOUNTER → 2020-08-21 13:17 | Outpatient (CLI) | payer OTHER, MEDICARE, SELFPAY ==
--- NOTE | 2020-08-21 13:18 | CT_ITS ---
PROCEDURE: CT CHEST WO CON CLINICAL INDICATION: follow up adenopathy COMPARISON: CT CT ANGIO CHEST from 04/08/[address] CHEST W CON from 05/21/2020 TECHNIQUE: Axial images obtained with sagittal and coronal reformats. All CT scans at the facility use one or more dose reduction, viz: automated exposure control, ma/kV adjustment per patient size (including targeted exams where dose is matched to indication, i.e. head), or iterative reconstruction technique. FINDINGS: HEART AND MEDIASTINAL STRUCTURES: The heart size is normal. No pericardial effusions. Visualized thoracic aorta is unremarkable. There are few calcified and noncalcified mediastinal lymph nodes are noted. The largest of these in the right paratracheal location measures 1.4 x 1.1 centimeters. This demonstrates no significant interval change compared to prior study. There is a cluster of small lymph nodes/conglomerate nodes in the prevascular region measuring approximately 3.2 centimeters, demonstrate no significant interval change compared to prior study. Evaluation of the paco is limited due to lack of intravenous contrast although no gross lymphadenopathy is noted. LUNGS AND PLEURAL SPACES: Nodule in the left upper lobe measuring 7 millimeters is noted. Minor subsegmental atelectasis noted in the right middle lobe and right lower lobes. No lobar consolidation, pleural effusions or pneumothorax. Calcified granuloma in the right upper lobe. BONY STRUCTURES: Multilevel degenerative changes of the thoracic spine are noted. UPPER ABDOMEN: Hepatic steatosis. Cholecystectomy is noted. Otherwise the visualized upper abdominal solid organs are unremarkable within the limitations of unenhanced study. ADDITIONAL FINDINGS: Small hiatus hernia is noted. The visualized thyroid gland is unremarkable. IMPRESSION: Calcified and noncalcified lymph nodes are noted in the mediastinum, demonstrate no significant interval change compared to the most recent study of May 21, 2020. Nodule in the left upper lobe measuring 7 millimeters. Follow-up noncontrast CT thorax in 6-12 months is recommended to evaluate for stability. Hepatic steatosis. Dictated by: Kalyani Ritchie 08/21/2020 16:24 Kalyani Ritchie in [place] 08/21/2020 16:24
== END ==
PROVIDERS: PCP Internal Medicine Adolescent Medicine; Visit Provider Internal Medicine Pulmonary Disease
DX: R91.8 Other nonspecific abnormal finding of lung field (principal)
CPT/HCPCS: 71250

== ENCOUNTER → 2020-09-03 10:53 | Outpatient (CLI) | payer OTHER, MEDICARE, SELFPAY ==
--- NOTE | 2020-09-03 11:21 | CT_ITS ---
PROCEDURE: CT ANKLE LT WO CON CLINICAL HISTORY: ankle pain Continued left foot and ankle pain since surgery in May 2018 Prior surgery, evaluate for ankle fusion COMPARISON: CR XR ANKLE WT BEARING LT MIN 3V from 07/21/2020 TECHNIQUE: Axial images obtained with sagittal and coronal reformats. All CT scans at the facility use one or more dose reduction, viz: automated exposure control, ma/kV adjustment per patient size (including targeted exams where dose is matched to indication, i.e. head), or iterative reconstruction technique. FINDINGS: There are postsurgical changes. There is an anterior tibial bone plate curving anteriorly at the talus. There has been prior excision of the distal fibula. A screw is present at the medial malleolar region and an oblique screw in the distal tibia into the talus. Two lag screws are present from the calcaneus into the talus. They are oblique in nature. The screw entering the most plantar aspect of the calcaneus projects into the inferior aspect of the talus at the posterior tail 0 calcaneal joint with a prominent zone of lucency in the talus area with the zone of lucency measuring up to 3 mm posteriorly around that screw. There is an additional oblique screw entering the calcaneus and projecting to the inferior aspect of the talus at the anterior aspect of the posterior subtalar joint with a prominent zone of lucency. This screw barely projects into the talus and does not appear to be secured into the bony aspect of the talus. There is a separate bony fragment along the anterior aspect of the tip of this screw well-circumscribed measuring approximately 1 x 0.4 cm and may represent a chronic fracture of the medial bony ridge of the calcaneus. There is non bony fusion of the posterior subtalar joint with osteoarthritic changes of the posterior subtalar joint and subarticular cystic changes. There is complete bony fusion of the tibiotalar joint. Two screws are present in the anterior aspect of the bone plate within the talus and both projecting into the sinus tarsi region. Osteoarthritic changes are present at the tail 0 navicular and calcaneocuboid joint. No acute fracture or dislocation. IMPRESSION: 1. Status post fusion of the ankle joint at the tibial talar region with complete bony fusion. Two screws within the curved bone plate anterior projecting into the talus do project into the sinus tarsi area. 2. Non fusion of the posterior subtalar joint with prominent zone of lucency in the talus involving both screws consistent with loosening. Infection would be included in the differential diagnosis.. 3. 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
== END ==
PROVIDERS: PCP Internal Medicine Adolescent Medicine; Visit Provider Podiatrist
DX: M25.572 Pain in left ankle and joints of left foot (principal); G89.29 Other chronic pain; M25.872 Other specified joint disorders, left ankle and foot; M96.0 Pseudarthrosis after fusion or arthrodesis
CPT/HCPCS: 73700

== ENCOUNTER → 2020-09-04 07:36 | Outpatient (CLI) | payer OTHER, MEDICARE, SELFPAY ==
[2020-09-04 08:36] LABS: Basophils # 0.1 K/mm3 (0-0.2); Basophils % 0.5 % (0.1-2.0); Eosinophils # 0.1 K/mm3 (0.0-0.4); Eosinophils % 1.4 % (0.1-12.0); Hematocrit 40.7 % (37.0-47.0); Lymphocytes # 2.5 K/mm3 (0.7-4.5); Lymphocytes % 24.7 % (10-50); Mean Corpuscular Hemoglobin 24.8 pg (27.0-31.2); Mean Corpuscular Volume 77.6 fl (81-99); Mean Platelet Volume 7.4 fl (7.4-10.4); Monocytes # 0.5 K/mm3 (0.1-1.0); Monocytes % 5.3 % (1.7-9.3); Neutrophils # 6.9 K/mm3 (1.8-7.8); Platelet Count 367 K/mm3 (142-424); Red Blood Count 5.24 M/mm3 (4.20-5.40); Red Cell Distribution Width 16.8 % (11.5-17.5); White Blood Count 10.1 K/mm3 (4.8-10.8)
[2020-09-04 09:07] LABS: Chloride 102 mmol/L (98-107); Potassium 4.7 mmoL/L (3.5-5.1); Sodium 139 mmol/L (136-145)
[2020-09-04 09:09] LABS: Chol/HDL Ratio 4.2 (1-3.5); Cholesterol 183 mg/dl (140-200); HDL Cholesterol 44 mg/dl (40-60); Triglycerides 247 mg/dl (30-150); VLDL Cholesterol 49 mg/dL (0-40)
[2020-09-04 09:09] LABS: Alanine Aminotransferase 21 U/L (12-78); Aspartate Amino Transferase 42 U/L (14-36); Blood Urea Nitrogen 22 mg/dl (7-17); Erythrocyte Sedimentation Rate 16 mm/hr (0-30); Estimated Glomerular Filt Rate 87 ml/min (>60); GFR (African American) 105 ML/MIN (>60)
[2020-09-04 09:10] LABS: Albumin/Globulin Ratio 1.4 (1.1-1.8); Alkaline Phosphatase 95 U/L (38-126); Anion Gap 16.7 mEq/L (5-15); Bilirubin,Total 0.6 mg/dl (0.2-1.3); Carbon Dioxide 25 mmol/L (22.0-30.0); Globulin 3.7 g/dL (1.3-3.2); Glucose 174 mg/dl (74-100); Total Protein,Serum 8.7 g/dl (6.3-8.2)
[2020-09-04 09:15] LABS: C-Reactive Protein 7.7 mg/L (0-4)
[2020-09-04 09:20] LABS: Direct LDL Cholesterol 94.39 mg/dL (100-129)
[2020-09-04 15:09] LABS: Creatinine,Urine Random 92 mg/dL (Not Estab.)
[2020-09-04 15:11] LABS: Microalbumin/Creatinine Ratio 18.5
[2020-09-05 09:23] LABS: Hep A Ab, IgM Negative (Negative); Hepatitis B Core Antibody IgM Negative (Negative); Hepatitis B Surface Antigen Negative (Negative)
[2020-09-05 12:24] LABS: Hepatitis C Antibody <0.1 s/co ratio (0.0-0.9)
== END ==
PROVIDERS: Internal Medicine Adolescent Medicine; Visit Provider Internal Medicine
DX: M79.7 Fibromyalgia (principal); D89.9 Disorder involving the immune mechanism, unspecified; M05.9 Rheumatoid arthritis with rheumatoid factor, unspecified; R53.83 Other fatigue; E11.65 Type 2 diabetes mellitus with hyperglycemia; I10 Essential (primary) hypertension; E78.2 Mixed hyperlipidemia; Z79.899 Other long term (current) drug therapy
CPT/HCPCS: 36415; 80053; 80061; 80074; 82043; 82570; 83036; 85025; 85651; 86140

== ENCOUNTER → 2020-09-15 08:27 | Outpatient (CLI) | payer OTHER, MEDICARE, SELFPAY ==
[2020-09-19 15:40] LABS: QuantiFERON-TB Gold Plus Negative (Negative)
== END ==
PROVIDERS: Visit Provider Internal Medicine
DX: D89.9 Disorder involving the immune mechanism, unspecified (principal); M05.9 Rheumatoid arthritis with rheumatoid factor, unspecified; M79.7 Fibromyalgia; R53.83 Other fatigue; Z79.899 Other long term (current) drug therapy
CPT/HCPCS: 36415; 86480

== ENCOUNTER → 2020-09-21 12:49 | Outpatient (CLI) | payer OTHER, MEDICARE, SELFPAY ==
--- NOTE | 2020-09-21 12:51 | MM_ITS ---
PROCEDURE INFORMATION: Exam: MG Screening 3D Mammography Exam date and time: 09/21/2020 12:51 PM Age: 55 years old Clinical indication: Encounter for screening mammogram for malignant neoplasm of breast TECHNIQUE: Imaging protocol: Screening tomosynthesis and 2D mammography including computer-aided detection (CAD) when performed. COMPARISON: 1. MG MM DIG SCREENING MAMM BI W/CAD 07/09/2019 8:37 AM 2. MG SCBI MM Dig screening mamm BI w/CAD 03/30/2018 11:08 AM 3. MG DMSB DIG MAMM-SCREEN FRANDY W/CAD 09/29/2016 10:28 AM 4. MG DMSB DIG MAMM-SCREEN FRANDY 09/30/2014 9:56 AM FINDINGS: MAMMOGRAPHY: Breast composition: There are scattered areas of fibroglandular density. Mass: None. Architectural distortion: No new or suspicious architectural distortion. Calcifications: No new or suspicious calcifications are present Asymmetric density: No new or suspicious asymmetric density is present Skin thickening: None. Axillary adenopathy: None. IMPRESSION: No mammographic evidence of malignancy. Recommend annual screening mammography unless otherwise clinically indicated. ASSESSMENT: BI-RADS category 1: Negative
== END ==
PROVIDERS: PCP Internal Medicine Adolescent Medicine; Visit Provider Nurse Practitioner Family
DX: Z12.31 Encounter for screening mammogram for malignant neoplasm of breast (principal)
CPT/HCPCS: 77063; 77067

== ENCOUNTER → 2021-01-20 09:09 | Outpatient (CLI) | payer OTHER, MEDICARE, SELFPAY ==
[2021-01-20 09:46] LABS: Basophils # 0.1 K/mm3 (0-0.2); Basophils % 1.1 % (0.1-2.0); Eosinophils # 0.6 K/mm3 (0.0-0.4); Hematocrit 43.7 % (37.0-47.0); Hemoglobin 14.1 g/dL (12.2-16.2); Lymphocytes # 2.5 K/mm3 (0.7-4.5); Lymphocytes % 32.7 % (10-50); Mean Corpuscular HGB Conc 32.3 g/dL (31.8-35.4); Mean Corpuscular Hemoglobin 29.6 pg (27.0-31.2); Mean Corpuscular Volume 91.5 fl (81-99); Mean Platelet Volume 8.2 fl (7.4-10.4); Monocytes # 0.4 K/mm3 (0.1-1.0); Monocytes % 5.1 % (1.7-9.3); Neutrophils % 53.1 % (37.0-80.0); Platelet Count 380 K/mm3 (142-424); Red Blood Count 4.77 M/mm3 (4.20-5.40); Red Cell Distribution Width 16.2 % (11.5-17.5); White Blood Count 7.5 K/mm3 (4.8-10.8)
[2021-01-20 10:31] LABS: Alanine Aminotransferase 28 U/L (12-78); Albumin Level 4.4 g/dl (3.5-5.0); Albumin/Globulin Ratio 1.3 (1.1-1.8); Alkaline Phosphatase 94 U/L (38-126); Anion Gap 15.1 mEq/L (5-15); Aspartate Amino Transferase 51 U/L (14-36); Bilirubin,Total 0.3 mg/dl (0.2-1.3); Blood Urea Nitrogen 15 mg/dl (7-17); Calcium 10.2 mg/dl (8.4-10.2); Carbon Dioxide 28 mmol/L (22.0-30.0); Chloride 101 mmol/L (98-107); Chol/HDL Ratio 3.7 (1-3.5); Cholesterol 167 mg/dl (140-200); Estimated Glomerular Filt Rate 74 ml/min (>60); GFR (African American) 90 ML/MIN (>60); Globulin 3.4 g/dL (1.3-3.2); Glucose 175 mg/dl (74-100); HDL Cholesterol 45 mg/dl (40-60); Potassium 4.1 mmoL/L (3.5-5.1); Sodium 140 mmol/L (136-145); Total Protein,Serum 7.8 g/dl (6.3-8.2); Triglycerides 231 mg/dl (30-150); VLDL Cholesterol 46 mg/dL (0-40)
[2021-01-20 10:42] LABS: Direct LDL Cholesterol 79.61 mg/dL (100-129)
[2021-01-20 11:22] LABS: Hemoglobin A1C 6.8 % (4.0-6.0)
[2021-01-20 14:54] LABS: C-Reactive Protein 4.8 mg/L (0-4)
[2021-01-20 15:16] LABS: Erythrocyte Sedimentation Rate 15 mm/hr (0-30)
[2021-01-20 15:38] LABS: Creatinine,Urine Random 37 mg/dL (Not Estab.)
[2021-01-20 15:43] LABS: Microalbumin < 6.000 mg/L (0-16.7)
== END ==
PROVIDERS: Nurse Practitioner Women's Health; Visit Provider Nurse Practitioner Family
DX: E11.65 Type 2 diabetes mellitus with hyperglycemia (principal); R59.9 Enlarged lymph nodes, unspecified; I10 Essential (primary) hypertension; E78.2 Mixed hyperlipidemia; D89.9 Disorder involving the immune mechanism, unspecified; M05.9 Rheumatoid arthritis with rheumatoid factor, unspecified; Z79.899 Other long term (current) drug therapy
CPT/HCPCS: 36415; 80053; 80061; 82043; 82570; 83036; 85025; 85651; 86140

== ENCOUNTER → 2021-02-24 10:53 | Outpatient (CLI) | payer OTHER, MEDICARE, SELFPAY ==
[2021-02-24 10:55] LABS: Microscopic, Urine URINE MICROSCOPIC (MICROSCOPIC)
[2021-02-24 12:02] LABS: Appearance,Urine CLEAR (Clear); Bilirubin,Urine Negative (Negative); Blood, Urine Negative (Negative); Color,Urine YELLOW (Yellow); Glucose,Urine (UA) 3+ (Negative); Ketones,Urine Negative (Negative); Leukocyte Esterase,Urine Negative (Negative); Nitrate,Urine Negative (Negative); PH,Urine 6.5 (5.0-8.5); Protein,Urine Negative (Negative); Specific Gravity, Urine 1.015 (1.005-1.030); Urobilinogen,Urine 0.2 EU/dl (0.2)
[2021-02-24 12:08] LABS: Occult Blood,Stool Negative (Negative)
[2021-02-24 12:21] LABS: Bacteria,Urine Trace /lpf; Squamous Epithelial Cell,Urine Occasional #/hpf (0-5)
== END ==
PROVIDERS: Visit Provider Nurse Practitioner Family
DX: R10.84 Generalized abdominal pain (principal)
CPT/HCPCS: 81001; 82272; G0328

== ENCOUNTER → 2021-02-25 08:53 | Outpatient (CLI) | payer OTHER, MEDICARE, SELFPAY ==
--- NOTE | 2021-02-25 08:58 | US_ITS ---
PROCEDURE: US ABDOMEN COMPLETE CLINICAL INDICATION: GENERALIZED ABD PAIN COMPARISON: No exams were available for comparison FINDINGS: PANCREAS: Pancreas is normal in size and shows multiple coarse appearing calcifications. Is there a history of chronic pancreatitis? LIVER: There is overall increased echogenicity of the liver parenchyma consistent diffuse fatty infiltration. There are no focal lesions. RIGHT KIDNEY: The right kidney measures 10.1 x 4.6 by 7.7 cm and shows a good corticomedullary junction and is basically sonographically normal. LEFT KIDNEY: The left kidney measures 10.4 x 4.1 by 5.9 cm and appears sonographically normal as well. GALLBLADDER: Post cholecystectomy AORTA: No evidence of aneurysmal dilatation. SPLEEN: Unremarkable. Normal size and echogenicity ASCITES: None demonstrated. IMPRESSION: No acute findings. There are findings of mild diffuse hepatic steatosis along with multiple pancreatic calcifications suggestive of chronic pancreatitis and suggest clinical correlation. Dictated by: Dr. Kenny Poole MD 02/25/2021 12:31 Dr. Kenny Poole MD in [place] 02/25/2021 12:31
== END ==
PROVIDERS: PCP Internal Medicine Adolescent Medicine; Visit Provider Nurse Practitioner Family
DX: R10.84 Generalized abdominal pain (principal)
CPT/HCPCS: 76700

== ENCOUNTER → 2021-04-13 08:50 | Outpatient (CLI) | payer OTHER, MEDICARE, SELFPAY | PROVIDERS: PCP Internal Medicine Adolescent Medicine; Visit Provider Nurse Practitioner | DX: Z20.822 Contact with and (suspected) exposure to COVID-19 (principal) | CPT/HCPCS: C9803; U0003; U0005 ==

== ENCOUNTER → 2021-04-28 14:52 | Outpatient (CLI) | payer OTHER, MEDICARE, SELFPAY ==
--- NOTE | 2021-04-28 14:52 | CT_ITS ---
PROCEDURE: CT CHEST WO CON CLINICAL INDICATION: 9-month follow-up Follow-up nodule COMPARISON: CT CT CHEST WO CON from 08/21/2020 TECHNIQUE: Axial images obtained with sagittal and coronal reformats. All CT scans at the facility use one or more dose reduction, viz: automated exposure control, ma/kV adjustment per patient size (including targeted exams where dose is matched to indication, i.e. head), or iterative reconstruction technique. FINDINGS: HEART AND MEDIASTINAL STRUCTURES: There are scattered mildly prominent mediastinal lymph nodes which are slightly smaller from the previous exam. Coronary artery calcification noted.. LUNGS AND PLEURAL SPACES: There is some mild scarring in the right middle lobe in the lung base. Right hemidiaphragm is elevated mild scarring in the right lower lobe. 6 mm subpleural nodule in the left upper lobe stable. Mild scarring in the lingula inferiorly. No new nodules. BONY STRUCTURES: Mild upper thoracic scoliosis convex left and lower thoracic scoliosis convex right. UPPER ABDOMEN: Hepatomegaly with fatty liver. There are few small mesenteric lymph nodes at the celiac axis unchanged. Enlarged periportal node is present at 2.3 x 1.4 cm previously 2.8 x 1.4 cm. ADDITIONAL FINDINGS: No other significant abnormalities. IMPRESSION: Stable left upper lobe nodule. Mildly prominent mediastinal lymph nodes appear slightly smaller Scattered areas of scarring Hepatomegaly with fatty liver. Periportal adenopathy somewhat improved Dictated by: Edwar Oliver MD 04/29/2021 14:22 Edwar Oliver MD in [place] 04/29/2021 14:22
== END ==
PROVIDERS: PCP Internal Medicine Adolescent Medicine; Visit Provider Internal Medicine Pulmonary Disease
DX: R91.8 Other nonspecific abnormal finding of lung field (principal)
CPT/HCPCS: 71250

== ENCOUNTER → 2021-05-25 11:41 | Outpatient (CLI) | payer OTHER, MEDICARE, SELFPAY ==
[2021-05-25 12:05] LABS: Basophils # 0.2 K/mm3 (0-0.2); Basophils % 1.7 % (0.1-2.0); Eosinophils # 0.6 K/mm3 (0.0-0.4); Eosinophils % 6.5 % (0.1-12.0); Lymphocytes # 2.3 K/mm3 (0.7-4.5); Lymphocytes % 25.4 % (10-50); Mean Corpuscular HGB Conc 31.8 g/dL (31.8-35.4); Mean Corpuscular Hemoglobin 28.2 pg (27.0-31.2); Mean Corpuscular Volume 88.7 fl (81-99); Mean Platelet Volume 7.2 fl (7.4-10.4); Monocytes # 0.5 K/mm3 (0.1-1.0); Monocytes % 5.6 % (1.7-9.3); Neutrophils # 5.5 K/mm3 (1.8-7.8); Neutrophils % 60.9 % (37.0-80.0); Platelet Count 357 K/mm3 (142-424); Red Blood Count 5.29 M/mm3 (4.20-5.40); Red Cell Distribution Width 15.9 % (11.5-17.5)
[2021-05-25 12:32] LABS: Erythrocyte Sedimentation Rate 5 mm/hr (0-30)
[2021-05-25 12:34] LABS: Chloride 98 mmol/L (98-107); Sodium 138 mmol/L (136-145)
[2021-05-25 12:35] LABS: Potassium 4.5 mmoL/L (3.5-5.1)
[2021-05-25 12:37] LABS: Alanine Aminotransferase 23 U/L (12-78); Alkaline Phosphatase 107 U/L (38-126); Anion Gap 17.5 mEq/L (5-15); Aspartate Amino Transferase 61 U/L (14-36); Bilirubin,Total 0.5 mg/dl (0.2-1.3); Blood Urea Nitrogen 22 mg/dl (7-17); Carbon Dioxide 27 mmol/L (22.0-30.0); Estimated Glomerular Filt Rate 65 ml/min (>60); GFR (African American) 78 ML/MIN (>60)
[2021-05-25 12:38] LABS: Albumin Level 4.8 g/dl (3.5-5.0); Albumin/Globulin Ratio 1.4 (1.1-1.8); Calcium 10.8 mg/dl (8.4-10.2); Globulin 3.4 g/dL (1.3-3.2); Glucose 271 mg/dl (74-100); Total Protein,Serum 8.2 g/dl (6.3-8.2)
[2021-05-25 12:43] LABS: C-Reactive Protein 6.6 mg/L (0-4)
[2021-05-26 12:10] LABS: Hep A Ab, IgM Negative (Negative); Hepatitis B Core Antibody IgM Negative (Negative); Hepatitis B Surface Antigen Negative (Negative); Hepatitis C Antibody 0.1 s/co ratio (0.0-0.9)
[2021-05-28 19:38] LABS: QuantiFERON-TB Gold Plus Negative (Negative)
== END ==
PROVIDERS: Visit Provider Nurse Practitioner Family
DX: M05.9 Rheumatoid arthritis with rheumatoid factor, unspecified (principal); M79.7 Fibromyalgia; D89.9 Disorder involving the immune mechanism, unspecified; R53.83 Other fatigue; Z79.899 Other long term (current) drug therapy
CPT/HCPCS: 36415; 80053; 80074; 85025; 85651; 86140; 86480

== ENCOUNTER → 2021-09-09 09:01 | Outpatient (CLI) | payer OTHER, MEDICARE, SELFPAY ==
[2021-09-09 10:03] LABS: Basophils # 0.1 K/mm3 (0-0.2); Basophils % 1.4 % (0.1-2.0); Eosinophils # 0.5 K/mm3 (0.0-0.4); Eosinophils % 10.8 % (0.1-12.0); Hematocrit 42.7 % (37.0-47.0); Hemoglobin 13.3 g/dL (12.2-16.2); Lymphocytes # 1.8 K/mm3 (0.7-4.5); Lymphocytes % 35.5 % (10-50); Mean Corpuscular HGB Conc 31.2 g/dL (31.8-35.4); Mean Corpuscular Hemoglobin 28.4 pg (27.0-31.2); Mean Corpuscular Volume 91.1 fl (81-99); Mean Platelet Volume 8.1 fl (7.4-10.4); Monocytes # 0.4 K/mm3 (0.1-1.0); Monocytes % 7.9 % (1.7-9.3); Neutrophils # 2.2 K/mm3 (1.8-7.8); Neutrophils % 44.5 % (37.0-80.0); Platelet Count 272 K/mm3 (142-424); Red Blood Count 4.68 M/mm3 (4.20-5.40); Red Cell Distribution Width 16.8 % (11.5-17.5)
[2021-09-09 10:13] LABS: Hemoglobin A1C 8.5 % (4.0-6.0)
[2021-09-09 10:40] LABS: Erythrocyte Sedimentation Rate 19 mm/hr (0-30)
[2021-09-09 11:11] LABS: Chloride 106 mmol/L (98-107); Potassium 4.3 mmoL/L (3.5-5.1); Sodium 140 mmol/L (136-145)
[2021-09-09 11:13] LABS: Alanine Aminotransferase 27 U/L (12-78); Aspartate Amino Transferase 55 U/L (14-36); Blood Urea Nitrogen 21 mg/dl (7-17); Estimated Glomerular Filt Rate 86 ml/min (>60); GFR (African American) 104 ML/MIN (>60)
[2021-09-09 11:14] LABS: Albumin Level 4.1 g/dl (3.5-5.0); Albumin/Globulin Ratio 1.3 (1.1-1.8); Alkaline Phosphatase 110 U/L (38-126); Anion Gap 11.3 mEq/L (5-15); Bilirubin,Total 0.5 mg/dl (0.2-1.3); Calcium 9.5 mg/dl (8.4-10.2); Carbon Dioxide 27 mmol/L (22.0-30.0); Globulin 3.1 g/dL (1.3-3.2); Glucose 133 mg/dl (74-100); Total Protein,Serum 7.2 g/dl (6.3-8.2)
[2021-09-09 11:19] LABS: C-Reactive Protein 4.2 mg/L (0-4)
== END ==
PROVIDERS: PCP Nurse Practitioner Family; Visit Provider Internal Medicine
DX: D89.9 Disorder involving the immune mechanism, unspecified (principal); E11.65 Type 2 diabetes mellitus with hyperglycemia; M05.9 Rheumatoid arthritis with rheumatoid factor, unspecified; M79.7 Fibromyalgia; Z79.899 Other long term (current) drug therapy; Z79.84 Long term (current) use of oral hypoglycemic drugs
CPT/HCPCS: 36415; 80053; 83036; 85025; 85651; 86140

== ENCOUNTER → 2021-12-06 14:47 | Outpatient (CLI) | payer OTHER, MEDICARE, SELFPAY ==
[2021-12-06 17:47] LABS: Basophils # 0.1 K/mm3 (0-0.2); Basophils % 0.9 % (0.1-2.0); Eosinophils # 0.6 K/mm3 (0.0-0.4); Eosinophils % 8.1 % (0.1-12.0); Hematocrit 41.8 % (37.0-47.0); Hemoglobin 13.3 g/dL (12.2-16.2); Lymphocytes # 2.3 K/mm3 (0.7-4.5); Lymphocytes % 30.5 % (10-50); Mean Corpuscular HGB Conc 31.7 g/dL (31.8-35.4); Mean Corpuscular Hemoglobin 28.1 pg (27.0-31.2); Mean Corpuscular Volume 88.5 fl (81-99); Mean Platelet Volume 7.5 fl (7.4-10.4); Monocytes # 0.6 K/mm3 (0.1-1.0); Monocytes % 7.8 % (1.7-9.3); Neutrophils % 52.6 % (37.0-80.0); Platelet Count 289 K/mm3 (142-424); Red Blood Count 4.73 M/mm3 (4.20-5.40); White Blood Count 7.6 K/mm3 (4.8-10.8)
[2021-12-06 17:54] LABS: Alanine Aminotransferase 20 U/L (12-78); Albumin Level 4.1 g/dl (3.5-5.0); Albumin/Globulin Ratio 1.2 (1.1-1.8); Alkaline Phosphatase 108 U/L (38-126); Anion Gap 14.2 mEq/L (5-15); Aspartate Amino Transferase 45 U/L (14-36); Bilirubin,Total 0.3 mg/dl (0.2-1.3); Blood Urea Nitrogen 15 mg/dl (7-17); Calcium 10.2 mg/dl (8.4-10.2); Carbon Dioxide 25 mmol/L (22.0-30.0); Chloride 102 mmol/L (98-107); Estimated Glomerular Filt Rate 74 ml/min (>60); GFR (African American) 89 ML/MIN (>60); Globulin 3.4 g/dL (1.3-3.2); Glucose 189 mg/dl (74-100); Potassium 4.2 mmoL/L (3.5-5.1); Sodium 137 mmol/L (136-145); Total Protein,Serum 7.5 g/dl (6.3-8.2)
[2021-12-06 17:59] LABS: C-Reactive Protein 4.9 mg/L (0-4)
[2021-12-06 19:16] LABS: Erythrocyte Sedimentation Rate 16 mm/hr (0-30)
[2021-12-10 23:06] LABS: Hep A Ab, IgM NEGATIVE; Hepatitis B Surface Antigen NEGATIVE; Hepatitis C Antibody 0.2
[2021-12-10 23:07] LABS: Hepatitis B Core Antibody IgM NEGATIVE
== END ==
PROVIDERS: Internal Medicine; PCP Internal Medicine Adolescent Medicine
DX: D89.9 Disorder involving the immune mechanism, unspecified (principal); M05.9 Rheumatoid arthritis with rheumatoid factor, unspecified; M79.7 Fibromyalgia; R53.83 Other fatigue; Z79.899 Other long term (current) drug therapy
CPT/HCPCS: 36415; 80053; 80074; 85025; 85651; 86140

== ENCOUNTER → 2021-12-07 13:58 | Outpatient (CLI) | payer OTHER, MEDICARE, SELFPAY ==
[2021-12-10 09:46] LABS: QuantiFERON-TB Gold Plus Negative (Negative)
== END ==
PROVIDERS: PCP Nurse Practitioner Family; Visit Provider Internal Medicine
DX: D89.9 Disorder involving the immune mechanism, unspecified (principal); M05.9 Rheumatoid arthritis with rheumatoid factor, unspecified; M79.7 Fibromyalgia; R53.83 Other fatigue; Z79.899 Other long term (current) drug therapy
CPT/HCPCS: 86480

== ENCOUNTER → 2021-12-21 10:53 | Outpatient (CLI) | payer OTHER, MEDICARE, SELFPAY ==
--- NOTE | 2021-12-21 10:57 | MM_ITS ---
PROCEDURE INFORMATION: Exam: MG Bilateral Screening 3D Mammography Exam date and time: 12/21/2021 11:05 AM Age: 56 years old Clinical indication: Screening examination TECHNIQUE: Imaging protocol: Bilateral Screening tomosynthesis and 2D mammography including computer-aided detection (CAD) when performed. COMPARISON: 1. MG MM DIG SCREENING MAMM BI W/CAD 09/21/2020 12:56 PM 2. MG MM DIG SCREENING MAMM BI W/CAD 07/09/2019 8:37 AM 3. MG SCBI MM Dig screening mamm BI w/CAD 03/30/2018 11:08 AM FINDINGS: MAMMOGRAPHY: Breast composition: There are scattered areas of fibroglandular density. Mass: No suspicious masses. Architectural distortion: No suspicious distortion. Calcifications: No suspicious calcifications. Asymmetric density: Questionable partially imaged asymmetry in the left upper outer quadrant overlying the pectoralis muscle, posterior depth, best seen on CC frame 31, MLO frame 26. Skin thickening: None. Axillary adenopathy: None. IMPRESSION: 1. Recommend left breast spot compression XCCL/MLO views and ultrasound for further evaluation of a questionable partially imaged asymmetry in the left upper outer quadrant, posterior depth. 2. No definite mammographic evidence of malignancy in the right breast. ASSESSMENT: BI-RADS Category 0: Incomplete- Need Additional Imaging Evaluation and/or Prior Mammograms for Comparison
== END ==
PROVIDERS: PCP Nurse Practitioner Family; Visit Provider Nurse Practitioner Family
DX: Z12.31 Encounter for screening mammogram for malignant neoplasm of breast (principal)
CPT/HCPCS: 77063; 77067

== ENCOUNTER → 2022-01-14 14:36 | Outpatient (CLI) | payer OTHER, MEDICARE, SELFPAY ==
--- NOTE | 2022-01-14 14:39 | MM_ITS ---
PROCEDURE INFORMATION: Exam: US Left Breast, Complete MG Left Diagnostic Breast Tomosynthesis Exam date and time: 01/14/2022 2:42 PM Age: 56 years old Clinical indication: Recall on the basis of screening mammogram 12/21/2021 for further evaluation questionable partially imaged asymmetry in the left upper outer quadrant overlying the pectoralis muscle, posterior depth. TECHNIQUE: Imaging protocol: Complete ultrasound of all four quadrants of the Left breast and the retroareolar regions, including ultrasound of the axilla when performed. Left Diagnostic tomosynthesis and 2D mammography including computer-aided detection (CAD) when performed. Unilateral or bilateral exam. COMPARISON: 1. MG MM DIG SCREENING MAMM BI W/CAD 12/21/2021 11:05 AM 2. MG MM DIG SCREENING MAMM BI W/CAD 09/21/2020 12:56 PM 3. MG MM DIG SCREENING MAMM BI W/CAD 07/09/2019 8:37 AM 4. MG SCBI MM Dig screening mamm BI w/CAD 03/30/2018 11:08 AM FINDINGS: MAMMOGRAPHY: Questionable asymmetry in the left upper outer quadrant on screening mammogram disperses with additional imaging consistent with overlapping glandular tissues.. No mass or suspicious asymmetry. ULTRASOUND: Left sonography, all 4 quadrants, retroareolar and axilla. No cystic or solid or sonographic non masslike findings demonstrated. Sonographically unremarkable left axillary lymph node. IMPRESSION: No mammographic or sonographic evidence of malignancy. Annual screening mammogram recommended unless otherwise clinically indicated. ASSESSMENT: BI-RADS Category 1: Negative
== END ==
PROVIDERS: PCP Nurse Practitioner Family; Visit Provider Nurse Practitioner Family
DX: R92.8 Other abnormal and inconclusive findings on diagnostic imaging of breast (principal)
CPT/HCPCS: 76641; 77061; 77065; G0279

== ENCOUNTER → 2022-03-08 13:49 | Outpatient (CLI) | payer OTHER, MEDICARE, SELFPAY ==
[2022-03-08 14:31] LABS: Basophils # 0.1 K/mm3 (0-0.2); Basophils % 1.2 % (0.1-2.0); Eosinophils # 0.5 K/mm3 (0.0-0.4); Eosinophils % 6.8 % (0.1-12.0); Hematocrit 44.5 % (37.0-47.0); Hemoglobin 14.2 g/dL (12.2-16.2); Lymphocytes # 2.5 K/mm3 (0.7-4.5); Mean Corpuscular Hemoglobin 27.7 pg (27.0-31.2); Mean Corpuscular Volume 86.7 fl (81-99); Mean Platelet Volume 7.4 fl (7.4-10.4); Monocytes # 0.6 K/mm3 (0.1-1.0); Monocytes % 7.3 % (1.7-9.3); Neutrophils # 4.1 K/mm3 (1.8-7.8); Neutrophils % 52.7 % (37.0-80.0); Platelet Count 293 K/mm3 (142-424); Red Blood Count 5.13 M/mm3 (4.20-5.40); Red Cell Distribution Width 15.9 % (11.5-17.5); White Blood Count 7.7 K/mm3 (4.8-10.8)
[2022-03-08 14:45] LABS: Chloride 101 mmol/L (98-107)
[2022-03-08 14:46] LABS: Potassium 3.8 mmoL/L (3.5-5.1); Sodium 141 mmol/L (136-145)
[2022-03-08 14:48] LABS: Alanine Aminotransferase 24 U/L (12-78); Alkaline Phosphatase 171 U/L (38-126); Aspartate Amino Transferase 47 U/L (14-36); Bilirubin,Total 0.5 mg/dl (0.2-1.3); Blood Urea Nitrogen 13 mg/dl (7-17); Estimated Glomerular Filt Rate 86 ml/min (>60); GFR (African American) 104 ML/MIN (>60)
[2022-03-08 14:49] LABS: Albumin Level 4.4 g/dl (3.5-5.0); Albumin/Globulin Ratio 1.2 (1.1-1.8); Anion Gap 15.8 mEq/L (5-15); Calcium 9.7 mg/dl (8.4-10.2); Carbon Dioxide 28 mmol/L (22.0-30.0); Globulin 3.8 g/dL (1.3-3.2); Glucose 220 mg/dl (74-100); Total Protein,Serum 8.2 g/dl (6.3-8.2)
[2022-03-08 14:55] LABS: C-Reactive Protein 5.7 mg/L (0-4)
[2022-03-08 15:19] LABS: Erythrocyte Sedimentation Rate 17 mm/hr (0-30)
== END ==
PROVIDERS: PCP Internal Medicine Adolescent Medicine; Visit Provider Nurse Practitioner Family
DX: D89.9 Disorder involving the immune mechanism, unspecified (principal); M05.9 Rheumatoid arthritis with rheumatoid factor, unspecified
CPT/HCPCS: 36415; 80053; 85025; 85651; 86140

== ENCOUNTER → 2022-05-24 15:13 | Outpatient (CLI) | payer OTHER, MEDICARE, SELFPAY ==
--- NOTE | 2022-05-24 15:47 | CT_ITS ---
FINAL REPORT TECHNIQUE: Axial images were obtained from the lung apex to the mid abdomen by computed tomography. Coronal reformatted images were obtained. This study was performed with techniques to keep radiation doses as low as reasonably achievable, (ALARA). Individualized dose reduction techniques using automated exposure control or adjustment of mA and/or kV according to the patient''s size were employed. CLINICAL HISTORY: Follow-up lung nodule COMPARISON: 04/28/2021 and 05/20/2020 FINDINGS: There is no axillary adenopathy. There is mild mediastinal adenopathy, considered reactive, stable to mildly improved. Heart size is normal. There is no pericardial or pleural effusion. Limited images of the upper abdomen are unremarkable. There is a 6 mm subpleural left upper lobe nodule stable for greater than two years. The right lung is clear. IMPRESSION: Stable left upper lobe nodule greater than two years, considered benign. No additional follow-up required. Reviewed, Interpreted and Dictated by Lynda Lainez MD Transcribed by Areli Houston Authenticated and [facility]
[2022-05-24 16:10] LABS: Blood Urea Nitrogen 16 mg/dl (7-17); Estimated Glomerular Filt Rate 86 ml/min (>60); GFR (African American) 104 ML/MIN (>60)
[2022-05-24 19:09] LABS: Alanine Aminotransferase 17 U/L (12-78); Albumin Level 4.4 g/dl (3.5-5.0); Albumin/Globulin Ratio 1.2 (1.1-1.8); Alkaline Phosphatase 120 U/L (38-126); Anion Gap 13.1 mEq/L (5-15); Aspartate Amino Transferase 37 U/L (14-36); Bilirubin,Total 0.4 mg/dl (0.2-1.3); Blood Urea Nitrogen 17 mg/dl (7-17); Calcium 9.8 mg/dl (8.4-10.2); Carbon Dioxide 26 mmol/L (22.0-30.0); Chloride 102 mmol/L (98-107); Estimated Glomerular Filt Rate 74 ml/min (>60); GFR (African American) 89 ML/MIN (>60); Globulin 3.6 g/dL (1.3-3.2); Glucose 242 mg/dl (74-100); Potassium 4.1 mmoL/L (3.5-5.1); Sodium 137 mmol/L (136-145)
[2022-05-24 19:15] LABS: C-Reactive Protein 5.2 mg/L (0-4)
[2022-05-24 19:44] LABS: Erythrocyte Sedimentation Rate 21 mm/hr (0-30)
[2022-05-24 19:47] LABS: Basophils # 0.1 K/mm3 (0-0.2); Basophils % 1.4 % (0.1-2.0); Eosinophils # 0.5 K/mm3 (0.0-0.4); Eosinophils % 7.6 % (0.1-12.0); Hematocrit 44.7 % (37.0-47.0); Hemoglobin 14.1 g/dL (12.2-16.2); Lymphocytes # 2.6 K/mm3 (0.7-4.5); Mean Corpuscular HGB Conc 31.6 g/dL (31.8-35.4); Mean Corpuscular Hemoglobin 27.2 pg (27.0-31.2); Mean Corpuscular Volume 86.2 fl (81-99); Mean Platelet Volume 8.8 fl (7.4-10.4); Monocytes # 0.7 K/mm3 (0.1-1.0); Neutrophils # 3.3 K/mm3 (1.8-7.8); Platelet Count 307 K/mm3 (142-424); Red Blood Count 5.18 M/mm3 (4.20-5.40); Red Cell Distribution Width 14.9 % (11.5-17.5); White Blood Count 7.2 K/mm3 (4.8-10.8)
== END ==
PROVIDERS: Nurse Practitioner Family; PCP Internal Medicine Adolescent Medicine; Referring Provider Nurse Practitioner Women's Health; Visit Provider Internal Medicine Pulmonary Disease
DX: R91.8 Other nonspecific abnormal finding of lung field (principal)
CPT/HCPCS: 36415; 71250; 80053; 82565; 84520; 85025; 85651; 86140

== ENCOUNTER → 2022-10-10 09:40 | Outpatient (CLI) | payer OTHER, MEDICARE, SELFPAY ==
[2022-10-10 10:12] LABS: Basophils # 0.1 K/mm3 (0-0.2); Basophils % 0.9 % (0.1-2.0); Eosinophils # 0.9 K/mm3 (0.0-0.4); Eosinophils % 14.1 % (0.1-12.0); Hemoglobin 14.1 g/dL (12.2-16.2); Lymphocytes # 2.3 K/mm3 (0.7-4.5); Lymphocytes % 36.6 % (10-50); Mean Corpuscular Hemoglobin 28.1 pg (27.0-31.2); Mean Corpuscular Volume 87.7 fl (81-99); Mean Platelet Volume 7.7 fl (7.4-10.4); Monocytes # 0.4 K/mm3 (0.1-1.0); Monocytes % 6.4 % (1.7-9.3); Neutrophils # 2.6 K/mm3 (1.8-7.8); Platelet Count 292 K/mm3 (142-424); Red Blood Count 5.02 M/mm3 (4.20-5.40); Red Cell Distribution Width 14.5 % (11.5-17.5); White Blood Count 6.3 K/mm3 (4.8-10.8)
[2022-10-10 10:51] LABS: Cholesterol 203 mg/dl (140-200); HDL Cholesterol 51 mg/dl (40-60); Triglycerides 190 mg/dl (30-150); VLDL Cholesterol 38 mg/dL (0-40)
[2022-10-10 10:51] LABS: Alanine Aminotransferase 19 U/L (12-78); Albumin Level 4.3 g/dl (3.5-5.0); Albumin/Globulin Ratio 1.2 (1.1-1.8); Alkaline Phosphatase 116 U/L (38-126); Aspartate Amino Transferase 34 U/L (14-36); Bilirubin,Total 0.6 mg/dl (0.2-1.3); Blood Urea Nitrogen 14 mg/dl (7-17); Calcium 9.8 mg/dl (8.4-10.2); Carbon Dioxide 28 mmol/L (22.0-30.0); Chloride 106 mmol/L (98-107); Estimated Glomerular Filt Rate 86 ml/min (>60); GFR (African American) 104 ML/MIN (>60); Globulin 3.5 g/dL (1.3-3.2); Glucose 148 mg/dl (74-100); Sodium 140 mmol/L (136-145); Total Protein,Serum 7.8 g/dl (6.3-8.2)
[2022-10-10 11:11] LABS: Direct LDL Cholesterol 110.37 mg/dL (100-129)
[2022-10-10 11:35] LABS: Erythrocyte Sedimentation Rate 16 mm/hr (0-30)
[2022-10-10 11:49] LABS: C-Reactive Protein 2.4 mg/L (0-4)
[2022-10-10 11:54] LABS: Hemoglobin A1C 6.8 % (4.0-6.0)
[2022-10-10 12:05] LABS: Creatinine,Urine Random 51 mg/dL (Not Estab.)
[2022-10-10 12:08] LABS: Microalbumin/Creatinine Ratio 15.2
[2022-10-10 12:09] LABS: Barbiturates Screen,Urine Negative ng/ml (<200)
[2022-10-10 12:10] LABS: Benzodiazepines Screen,Urine Negative ng/ml (<200)
[2022-10-10 12:11] LABS: Amphetamine/Metha Screen,Urine Negative ng/ml (<1000); Methadone Screen,Urine Negative ng/ml (<300)
[2022-10-10 12:12] LABS: Cannabinoid Screen,Urine Negative ng/ml (<50)
[2022-10-10 12:13] LABS: Cocaine Screen,Urine Negative ng/ml (<300); Opiate Screen,Urine Positive ng/ml (<300)
[2022-10-10 12:14] LABS: Phencyclidine Screen,Urine Negative ng/ml (<25)
[2022-10-12 20:30] LABS: QuantiFERON-TB Gold Plus Negative (Negative)
== END ==
PROVIDERS: Nurse Practitioner Family; PCP Internal Medicine Adolescent Medicine; Visit Provider Nurse Practitioner Family
DX: E11.65 Type 2 diabetes mellitus with hyperglycemia (principal); R53.83 Other fatigue; E78.2 Mixed hyperlipidemia; E55.9 Vitamin D deficiency, unspecified; G89.28 Other chronic postprocedural pain; M05.9 Rheumatoid arthritis with rheumatoid factor, unspecified; Z79.899 Other long term (current) drug therapy; Z51.81 Encounter for therapeutic drug level monitoring
CPT/HCPCS: 36415; 80053; 80061; 80305; 82043; 82306; 82570; 83036; 85025; 85651; 86140; 86480

== ENCOUNTER → 2023-01-17 09:39 | Outpatient (CLI) | payer OTHER, MEDICARE, SELFPAY ==
[2023-01-17 09:53] LABS: Adenovirus F 40/41, stool Not Detected (NotDetected); Astrovirus Not Detected (NotDetected); Campylobacter Not Detected (NotDetected); Clostridium Difficile A/B, PCR Not Detected (NotDetected); Cryptosporidium Not Detected (NotDetected); Cyclospora Cayetanesis Not Detected (NotDetected); Entamoeba histolytica Not Detected (NotDetected); Enteroaggregative E coli Not Detected (NotDetected); Enteropathogenic E coli Not Detected (NotDetected); Enterotoxigenic E coli Not Detected (NotDetected); Giardia lamblia Not Detected (NotDetected); Norovirus Not Detected (NotDetected); Plesimonas Shigalloides, PCR Not Detected (NotDetected); Rotavirus A Not Detected (NotDetected); Salmonella, PCR Not Detected (NotDetected); Sapovirus Not Detected (NotDetected); Shiga-like toxin E coli Not Detected (NotDetected); Shigella Enterovasive E coli Not Detected (NotDetected); Vibrio Cholerae Not Detected (NotDetected); Vibrio, PCR Not Detected (NotDetected); Yersinia Entercolitica, PCR Not Detected (NotDetected)
[2023-01-17 10:08] LABS: Basophils # 0.1 K/mm3 (0-0.2); Basophils % 0.8 % (0.1-2.0); Eosinophils # 1.4 K/mm3 (0.0-0.4); Eosinophils % 22.6 % (0.1-12.0); Hematocrit 45.8 % (37.0-47.0); Hemoglobin 14.6 g/dL (12.2-16.2); Lymphocytes % 32.5 % (10-50); Mean Corpuscular HGB Conc 31.8 g/dL (31.8-35.4); Mean Corpuscular Hemoglobin 27.6 pg (27.0-31.2); Mean Corpuscular Volume 86.8 fl (81-99); Mean Platelet Volume 7.6 fl (7.4-10.4); Monocytes # 0.5 K/mm3 (0.1-1.0); Monocytes % 7.3 % (1.7-9.3); Neutrophils # 2.3 K/mm3 (1.8-7.8); Neutrophils % 36.8 % (37.0-80.0); Platelet Count 293 K/mm3 (142-424); Red Blood Count 5.28 M/mm3 (4.20-5.40); Red Cell Distribution Width 14.4 % (11.5-17.5); White Blood Count 6.2 K/mm3 (4.8-10.8)
[2023-01-17 10:49] LABS: Chloride 104 mmol/L (98-107); Potassium 3.6 mmoL/L (3.5-5.1); Sodium 141 mmol/L (136-145)
[2023-01-17 10:51] LABS: Amylase 41 U/L (30-110); Blood Urea Nitrogen 16 mg/dl (7-17); Estimated Glomerular Filt Rate 74 ml/min (>60); GFR (African American) 89 ML/MIN (>60)
[2023-01-17 10:52] LABS: Alanine Aminotransferase 19 U/L (12-78); Albumin Level 3.9 g/dl (3.5-5.0); Albumin/Globulin Ratio 1.1 (1.1-1.8); Alkaline Phosphatase 125 U/L (38-126); Aspartate Amino Transferase 32 U/L (14-36); Bilirubin,Total 0.5 mg/dl (0.2-1.3); Calcium 10.6 mg/dl (8.4-10.2); Globulin 3.7 g/dL (1.3-3.2); Glucose 195 mg/dl (74-100); Lipase 226 U/L (23-300); Total Protein,Serum 7.6 g/dl (6.3-8.2)
[2023-01-17 16:19] LABS: Anion Gap 13.6 mEq/L (5-15); Carbon Dioxide 27 mmol/L (22.0-30.0)
== END ==
PROVIDERS: PCP Nurse Practitioner Family; Visit Provider Nurse Practitioner Family
DX: R10.10 Upper abdominal pain, unspecified (principal); R11.0 Nausea; R19.7 Diarrhea, unspecified
CPT/HCPCS: 36415; 80053; 82150; 83690; 85025; 87506

== ENCOUNTER → 2023-02-21 11:36 | Outpatient (CLI) | payer OTHER, MEDICARE, SELFPAY ==
--- OUTSIDE RECORDS SUMMARY | 2023-02-21 11:39 | XMS_ITS | Continuity of Care Document ---
Author Name Unknown Organization [facility] Address [address] [address] Phone Care Team Providers Care Exceptional Children Teacher Assistant Name Role Phone Russell Prabhakar DO Unavailable Unavailable Allergies, Adverse Reactions, Alerts Substance Reaction Status Criticality Penicillins Active No Information Medications Medication Instructions Dosage Effective Dates (start - stop) Status Comments Enbrel SureClick 50 mg/mL (1 mL) subcutaneous pen injector INJECT 1 ML UNDER THE SKIN EVERY WEEK - Active PA approved until 10/26/23. Arava 20 mg tablet TAKE 1 TABLET DAILY - Active hydrochlorothiazide 12.5 mg tablet take 1 tablet by oral route every day 12.5 MG - Active citalopram 40 mg tablet take 1 tablet by oral route every day 40 MG - Active Trulicity 0.75 mg/0.5 mL subcutaneous pen injector inject (0.75MG) by subcutaneous route every week 0.75 MG - Active Jardiance 25 mg tablet take 1 tablet by oral route every day in the morning 25 MG - Active diltiazem ER 120 mg capsule,extended release 12 hr take 1 capsule by oral route every day 120 MG - Active
--- NOTE | 2023-02-21 11:41 | XR_ITS ---
FINAL REPORT CLINICAL HISTORY: RHEUMATID ARTHRITIS FINDINGS: Right knee Three views were obtained. There is no acute fracture or dislocation. There are mild degenerative changes. No joint effusion is identified. There is meniscal calcification. Chronic calcification is seen superior to the patella. IMPRESSION: Degenerative and chronic appearing findings. Reviewed, Interpreted and Dictated by Ronny Bonilla III, MD Transcribed by Mami Mccarthy Authenticated and [facility]
== END ==
PROVIDERS: PCP Internal Medicine Adolescent Medicine; Visit Provider Nurse Practitioner Family
DX: M25.561 Pain in right knee (principal); M05.79 Rheumatoid arthritis with rheumatoid factor of multiple sites without organ or systems involvement
CPT/HCPCS: 73562

== ENCOUNTER → 2023-03-17 10:27 | Outpatient (CLI) | payer OTHER, MEDICARE, SELFPAY ==
--- NOTE | 2023-03-17 10:30 | MR_ITS ---
FINAL REPORT CLINICAL HISTORY: LUMBAGO WITH SCIATICA, RIGHTSIDE FINDINGS: Multiplanar MR imaging of the lumbar spine was performed without contrast. On the sagittal T2-weighted images, disc degeneration is seen at multiple levels. The vertebral alignment is normal. Postoperative changes are seen from fusion at L4-5 and L5-S1. There is chronic irregularity of the inferior L4 and superior L5 endplates. Schmorl's nodes are seen at multiple levels. Hemangiomas are noted at multiple levels. The conus has an unremarkable appearance. T11-12: And annular bulge is present. A right foraminal disc protrusion is seen. There is severe right and mild left neural foraminal narrowing. T12-L1: An annular bulge is present with bilateral facet arthropathy. There is a right foraminal disc protrusion with mild right neural foraminal narrowing. L1-2: An annular bulge is present. There is bilateral facet arthropathy. There is no significant canal stenosis or neural foraminal narrowing. L2-3: An annular bulge is present. Bilateral facet arthropathy is seen. There is mild right neural foraminal narrowing. L3-4: An annular bulge is present. Bilateral facet arthropathy is noted. Mild left neural foraminal narrowing is seen. L4-5: Postoperative changes are seen from L4 laminectomies and from fusion. There is severe bilateral neural foraminal narrowing. L5-S1: Postoperative changes are seen from fusion. Mild left neural foraminal narrowing is seen. IMPRESSION: Postoperative changes from fusion at L4-5 and L5-S1. Right foraminal T11 disc protrusion contributing to severe right neural foraminal narrowing. Right foraminal T12-L1 disc protrusion. Severe bilateral L4-5 neural foraminal narrowing. Authenticated and [facility]
== END ==
PROVIDERS: PCP Internal Medicine Adolescent Medicine; Visit Provider Nurse Practitioner Family
DX: M54.41 Lumbago with sciatica, right side (principal)
CPT/HCPCS: 72148; 76376

== ENCOUNTER → 2023-04-04 10:45 | Outpatient (CLI) | payer OTHER, MEDICARE, SELFPAY ==
--- NOTE | 2023-04-04 10:49 | MM_ITS ---
PROCEDURE INFORMATION: Exam: MG Bilateral Screening 3D Mammography Exam date and time: 04/04/2023 10:46 AM Age: 57 years old Clinical indication: Screening examination TECHNIQUE: Imaging protocol: Bilateral Screening tomosynthesis and 2D mammography including computer-aided detection (CAD) when performed. COMPARISON: 1. MG MM DIG MAMM DX UNILAT LT CAD 01/14/2022 2:42 PM 2. MG MM DIG SCREENING MAMM BI W/CAD 12/21/2021 11:05 AM FINDINGS: MAMMOGRAPHY: Breast composition: There are scattered areas of fibroglandular density. Mass: None. Architectural distortion: None. Calcifications: No suspicious calcifications. Asymmetric density: None. Skin thickening: None. Axillary adenopathy: None. IMPRESSION: No mammographic evidence of malignancy. Annual screening is recommended unless otherwise clinically indicated. ASSESSMENT: BI-RADS Category 1: Negative
== END ==
PROVIDERS: PCP Internal Medicine Adolescent Medicine; Visit Provider Nurse Practitioner Family
DX: Z12.31 Encounter for screening mammogram for malignant neoplasm of breast (principal)
CPT/HCPCS: 77063; 77067

== ENCOUNTER → 2023-04-24 09:04 | Outpatient (CLI) | payer OTHER, MEDICARE, SELFPAY ==
--- OUTSIDE RECORDS SUMMARY | 2023-04-24 09:07 | XMS_ITS | Continuity of Care Document ---
Author Name Unknown Organization [facility] Address [address] [address] Phone Care Team Providers Care History Instructor Name Role Phone Russell Prabhakar DO Unavailable Unavailable Allergies, Adverse Reactions, Alerts Substance Reaction Status Criticality Penicillins Active No Information Medications Medication Instructions Dosage Effective Dates (start - stop) Status Comments LEFLUNOMIDE TABS 20MG TAKE 1 TABLET DAILY - Active Enbrel SureClick 50 mg/mL (1 mL) subcutaneous pen injector INJECT 1 ML UNDER THE SKIN EVERY WEEK - Active PA approved until 10/26/23. hydrochlorothiazide 12.5 mg tablet take 1 tablet [...]
[2023-04-24 09:56] LABS: Basophils % 0.6 % (0.1-2.0); Eosinophils # 0.8 K/mm3 (0.0-0.4); Eosinophils % 14.4 % (0.1-12.0); Hemoglobin 14.2 g/dL (12.2-16.2); Lymphocytes # 2.1 K/mm3 (0.7-4.5); Lymphocytes % 36.9 % (10-50); Mean Corpuscular HGB Conc 32.3 g/dL (31.8-35.4); Mean Corpuscular Volume 86.6 fl (81-99); Mean Platelet Volume 8.1 fl (7.4-10.4); Monocytes # 0.4 K/mm3 (0.1-1.0); Neutrophils # 2.2 K/mm3 (1.8-7.8); Neutrophils % 40.1 % (37.0-80.0); Platelet Count 248 K/mm3 (142-424); Red Blood Count 5.08 M/mm3 (4.20-5.40); Red Cell Distribution Width 15.2 % (11.5-17.5); White Blood Count 5.6 K/mm3 (4.8-10.8)
[2023-04-24 10:41] LABS: Erythrocyte Sedimentation Rate 16 mm/hr (0-30)
[2023-04-24 10:43] LABS: Chloride 103 mmol/L (98-107); Potassium 3.9 mmoL/L (3.5-5.1); Sodium 137 mmol/L (136-145)
[2023-04-24 10:46] LABS: Alanine Aminotransferase 19 U/L (12-78); Albumin Level 4.3 g/dl (3.5-5.0); Albumin/Globulin Ratio 1.3 (1.1-1.8); Alkaline Phosphatase 105 U/L (38-126); Anion Gap 9.9 mEq/L (5-15); Aspartate Amino Transferase 35 U/L (14-36); Bilirubin,Total 0.6 mg/dl (0.2-1.3); Blood Urea Nitrogen 16 mg/dl (7-17); Carbon Dioxide 28 mmol/L (22.0-30.0); Estimated Glomerular Filt Rate 74 ml/min (>60); GFR (African American) 89 ML/MIN (>60); Globulin 3.4 g/dL (1.3-3.2); Total Protein,Serum 7.7 g/dl (6.3-8.2)
[2023-04-24 10:47] LABS: Calcium 9.7 mg/dl (8.4-10.2); Glucose 172 mg/dl (74-100)
[2023-04-24 10:49] LABS: Chol/HDL Ratio 5.8 (1-3.5); Cholesterol 230 mg/dl (140-200); HDL Cholesterol 40 mg/dl (40-60); Triglycerides 240 mg/dl (30-150); VLDL Cholesterol 48 mg/dL (0-40)
[2023-04-24 10:52] LABS: C-Reactive Protein 1.9 mg/L (0-4)
[2023-04-24 11:01] LABS: Direct LDL Cholesterol 124.06 mg/dL (100-129)
[2023-04-24 11:40] LABS: 25-OH Vitamin D, Total 33.5 ng/mL (30-100)
[2023-04-24 11:48] LABS: Hemoglobin A1C 7.9 % (4.0-6.0)
[2023-04-26 21:11] LABS: QuantiFERON-TB Gold Plus Negative (Negative)
[2023-04-26 21:49] LABS: HBsAg Screen NEGATIVE; Hep A Ab, IGM NEGATIVE
[2023-04-26 21:50] LABS: HCV Ab NON REACTIVE; Hep B Core Ab, IgM NEGATIVE
== END ==
PROVIDERS: PCP Nurse Practitioner Family; Visit Provider Internal Medicine
DX: M05.79 Rheumatoid arthritis with rheumatoid factor of multiple sites without organ or systems involvement (principal); E11.65 Type 2 diabetes mellitus with hyperglycemia; E78.2 Mixed hyperlipidemia; E55.9 Vitamin D deficiency, unspecified; D84.821 Immunodeficiency due to drugs; M79.7 Fibromyalgia
CPT/HCPCS: 36415; 80053; 80061; 80074; 82306; 83036; 85025; 85651; 86140; 86480

== ENCOUNTER → 2023-05-09 14:38 | Outpatient (CLI) | payer OTHER, MEDICARE, SELFPAY ==
--- OUTSIDE RECORDS SUMMARY | 2023-05-09 14:41 | XMS_ITS | Continuity of Care Document ---
Author Name Unknown Organization [facility] Address [address] [address] Phone Care Team Providers Care Polysomnographic Technologist Name Role Phone Russell Prabhakar DO Unavailable [...]
--- NOTE | 2023-05-09 14:42 | XR_ITS ---
FINAL REPORT CLINICAL HISTORY: LT FOOT PAIN,TRAUMA,H/O ANKLE FUSION FINDINGS: Left ankle Three views were obtained. Fusion hardware is seen bridging the anterior aspect of the mortise. Multiple orthopedic screws bridge the mortise and the posterior subtalar joint. There has been resection of the distal fibula. Moderate plantar spur is present. There might be some lucency around the calcaneal screws in the inferior talus, may be due to some bony resorption. IMPRESSION: Internal fixation hardware as above. Reviewed, Interpreted and Dictated by Pato Dorsey MD Transcribed by Mami Mccarthy Authenticated and [facility]
--- NOTE | 2023-05-09 14:42 | XR_ITS ---
FINAL REPORT CLINICAL HISTORY: LT FOOT PAIN FINDINGS: Left foot Three views were obtained. There is a mildly displaced oblique fracture of the distal 5th metatarsal. There is no intra-articular extension. The bones are osteopenic. IMPRESSION: Fracture as above. Reviewed, Interpreted and Dictated by Pato Dorsey MD Transcribed by Mami Mccarthy Authenticated and [facility]
== END ==
PROVIDERS: PCP Nurse Practitioner Family; Visit Provider Nurse Practitioner Family
DX: M25.572 Pain in left ankle and joints of left foot (principal); M79.672 Pain in left foot; T14.90XA Injury, unspecified, initial encounter; Z98.1 Arthrodesis status
CPT/HCPCS: 73610; 73630

== ENCOUNTER 2023-05-11 11:24 | Outpatient (RCR) | payer OTHER, MEDICARE, SELFPAY | END 2023-05-11 13:00 | disposition home or self-care (01) | LOC: PT 11:24 | PROVIDERS: Visit Provider Podiatrist | DX: S92.352A Displaced fracture of fifth metatarsal bone, left foot, initial encounter for closed fracture (principal); M79.672 Pain in left foot | CPT/HCPCS: 97760 ==

== ENCOUNTER → 2023-05-17 09:12 | Outpatient (CLI) | payer OTHER, MEDICARE, SELFPAY ==
--- OUTSIDE RECORDS SUMMARY | 2023-05-17 09:15 | XMS_ITS | Continuity of Care Document ---
Author Name Unknown Organization [facility] Address [address] [address] Phone Care Team Providers Care Lpn Care Manager Name Role Phone Russell Prabhakar DO Unavailable [...] route every day 120 MG - Active bisoprolol fumarate 10 mg tablet take 0.5 tablet by oral route every day 5 MG - Active sucralfate 1 gram tablet take 1 tablet b y oral route every day on an empty stomach 1 hour before meals and at bedtime 1 G - Active esomeprazole magnesium 40 mg capsule,delayed release take 1 capsule by oral route every day 40 MG - Active hydrocodone 7.5 mg-acetaminophen 300 mg tablet take 1 tablet by oral route every 6 hours as needed 1.00 tablet - Active Xarelto 20 mg tablet take 1 tablet by oral route every day with the evening meal 20 MG - Active baclofen 10 mg tablet take 1 tablet by oral route 2 times every day 10 MG - Active gabapentin 400 mg capsule take 1 capsule by oral route 3 times every day 400 MG - Active Procedures Procedure Date Office Visit Level IV Office Visit Level IV Office Visit Level IV Inflectra 10mg Chemo Therapy Admin IV Infus Up 1 Hr Mar Chemo Therapy Admin IV Inf Ea >30 Min No Normal Saline Solution Infusion Inflectra 10mg Chemo Therapy Admin IV Infus Up 1 Hr Jan Chemo Therapy Admin IV Inf Ea >30 Min Se Normal Saline Solution Infusion Office Visit Level IV Inflectra 10mg Chemo Therapy Admin IV Infus Up 1 Hr Dec Chemo Therapy Admin IV Inf Ea >30 Min Au Normal Saline Solution Infusion Inflectra 10mg Chemo Therapy Admin IV Infus Up 1 Hr Oct Chemo Therapy Admin IV Inf Ea >30 Min Ju Normal Saline Solution Infusion Office Visit Level IV Inflectra 10mg Chemo Therapy Admin IV Infus Up 1 Hr Aug Chemo Therapy Admin IV Inf Ea >30 Min Ap Normal Saline Solution Infusion CHRON CARE MGMT SRVC 20 MIN Office Visit Level IV Inflectra 10mg Chemo Therapy Admin IV Infus Up 1 Hr Jun Chemo Therapy Admin IV Inf Ea >30 Min Fe Normal Saline Solution Infusion Inflectra 10mg Chemo Therapy Admin IV Infus Up 1 Hr Mar Chemo Therapy Admin IV Inf Ea >30 Min No Normal Saline Solution Infusion Office Visit Level IV Inflectra 10mg Chemo Therapy Admin IV Infus Up 1 Hr Jan Chemo Therapy Admin IV Inf Ea >30 Min Se Normal Saline Solution Infusion Inflectra 10mg Chemo Therapy Admin IV Infus Up 1 Hr Nov Chemo Therapy Admin IV Inf Ea >30 Min Ju Normal Saline Solution Infusion Inflectra 10mg Chemo Therapy Admin IV Infus Up 1 Hr Oct Chemo Therapy Admin IV Inf Ea >30 Min Ju Normal Saline Solution Infusion Inflectra 10mg Chemo Therapy Admin IV Infus Up 1 Hr Oct Chemo Therapy Admin IV Inf Ea >30 Min Ju Normal Saline Solution Infusion 021 Office Visit Level IV Office Visit Level IV Inflectra 10mg Chemo Therapy Admin IV Infus Up 1 Hr Feb Chemo Therapy Admin IV Inf Ea >30 Min Oc Normal Saline Solution Infusion 020 Office Visit Level IV Inflectra 10mg Chemo Therapy Admin IV Infus Up 1 Hr Nov Chemo Therapy Admin IV Inf Ea >30 Min Ju Normal Saline Solution Infusion 020 Inflectra 10mg Chemo Therapy Admin IV Infus Up 1 Hr Oct Chemo Therapy Admin IV Inf Ea >30 Min Ju Normal Saline Solution Infusion Office Visit Level IV Inflectra 10mg Chemo Therapy Admin IV Infus Up 1 Hr Aug Chemo Therapy Admin IV Inf Ea >30 Min Ap Normal Saline Solution Infusion 020 Inflectra 10mg Chemo Therapy Admin IV Infus Up 1 Hr Jul Chemo Therapy Admin IV Inf Ea >30 Min Ma Normal Saline Solution Infusion Inflectra 10mg Chemo Therapy Admin IV Infus Up 1 Hr Jun Chemo Therapy Admin IV Inf Ea >30 Min Fe Normal Saline Solution Infusion 020 Office Visit Level IV Chest X-ray 2 Views Office Visit Level IV Office Visit Level IV Office Visit Level IV Office Visit Level IV Office Visit Level I Tb Cell Mediated Antign Respnse Gamma In Office Visit Level IV Chest X-ray 2 Views Office Visit Level IV Office Visit Level IV New Office Visit Level IV Radiological Exam Hand 2 views 17 Radiological Exam Hand 2 views 17 Radiological Exam Foot Compl Min 3 Views Radiological Exam Foot Compl Min 3 Views Radiologic Exam Chest 2 View Front/Lat J EL-anti-CCP/2 Dna Antb 1 Stranded Dna Antb [place]/2 Stranded Sm,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 No Information 3 Vanna Wells. [address], [address], [place], [address]. tel:[phone] [facility] [address], [id number], tel:[phone] [facility] No Information 3 [facility]. [address] [place] [address], [address]. tel:[phone] Office Visit Level IV [facility], [address] [place] [address], [id number], tel:[phone] [facility]. Follow Up of Fibromyalgia Syndrome (chief complaint)Rhe umatoid Arthritis (chief complaint) Immune deficiency due to current drugSeroposi tive Rheumatoid ArthritisFib romyalgiaOth er fatigueBody mass index (BMI) 39.0-39.9, adultHigh Risk Medication Use 3 [facility]. [address] [place] [address], [address]. tel:[phone] Primary Practice Provider: Abhishek Griggs, [address] [place] [address] 36 [address] [facility] Internal Medicine, [place], [address]. tel:[phone] erring Provider: Shikha Grimm, [address] [place] [address] [address], [address]. tel:[phone] Office Visit Level IV [facility], [address] [place] [address], [id number], tel:[phone] [facility] Follow Up of Fibromyalgia Syndrome (chief complaint)Rhe umatoid Arthritis (chief complaint) Immune deficiency due to current drugSeroposi tive Rheumatoid ArthritisFib romyalgiaBod y mass index (BMI) 39.0-39.9, adultHigh Risk Medication UseOther fatigue 3 Amador Carrillo. [address] [place] [address], [id number], [place]. tel:[phone] Referring Provider: Shikha Grimm, [address] [place] [address] [address], [address]. tel:[phone] Office Visit Level IV [facility] [address] [place] [address], [id number], tel:[phone] [facility] Follow Up of Fibromyalgia Syndrome (chief complaint)Rhe umatoid Arthritis (chief complaint) Seropositive Rheumatoid ArthritisFib romyalgiaBod y mass index (BMI) 39.0-39.9, adultImmune deficiency due to current drugHigh Risk Medication Use 2 [facility]. [facility] Bertin Purvis, [address], [address]. tel:[phone] Referring Provider: Shikha Grimm, [address] [place] [address] [address] [facility] [place], [address]. tel:[phone] [facility] [address] [place] [address], [id number], tel:[phone] [facility] No Information 2 [facility]. [facility] Bertin Purvis, [facility] [address], [place], [address]. tel:[phone] Primary Practice Provider: Abhishek Griggs, [address] [place] [address] [address] [facility] Internal Medicine, [place], [address]. tel:[phone] erring Provider: Shikha Grimm, [address] [place] [address] [address], [place], [address]. tel:[phone] Office Visit Level IV [facility] [address] [place] [address], [id number], tel:[phone] [facility] Follow Up of Fibromyalgia Syndrome (chief complaint)Rhe umatoid Arthritis (chief complaint) Immunosuppre ssionSeropos itive Rheumatoid ArthritisFib romyalgiaBod y mass index (BMI) 39.0-39.9, adultMethotr exate, director long term care, current useBody mass index (BMI) 40.0-44.9, adultFatigue 2 Amador Carrillo. 330 [facility], [facility] [address], [place], [place], [id number], [place]. tel:[phone] Referring Provider: Shikha Grimm [address] [place] [address] [address], [address]. tel:[phone] [facility], [address] [place] [address], [id number], tel:[phone] [facility] No Information 2 [facility]. [address], [address]. tel:[phone] Referring Provider: Shikha Grimm [address] [place] [address] [address], [address]. tel:[phone] [facility] .[facility]., [address] [place] [address], [id number], tel:[phone] [facility] No Information 2 [facility]. [address] [address], [place], [address]. tel:[phone] Referring Provider: Shikha Grimm [address] [place] [address] [address], [address]. tel:[phone] Office Visit Level IV [facility], .[facility]., [address] [place] [address], [id number], [place] tel:[phone] [facility].. Follow Up of Fibromyalgia Syndrome (chief complaint)Rhe umatoid Arthritis (chief complaint) Immunosuppre ssionSeropos itive Rheumatoid ArthritisFib romyalgiaBod y mass index (BMI) 39.0-39.9, adultMethotr exate, director long term care, current useFatigue 2 [facility]. [address], [address]. tel:[phone] Primary Practice Provider: Adriana De Oliveira[address] [facility] Internal Medicine, [place], [address]. tel:[phone] erring Provider: Shikha Grimm, [address] [place] [address] [address], [place], [address]. tel:[phone] [facility] [address] [place] [address], [id number], tel:[phone] [facility] No Information 2 [facility]. [address] Pedroeusebio, [address], [address]. tel:[phone] Referring Provider: Shikha Grimm, [address] [place] [address] [address], [place], [address]. tel:[phone] [facility] SRVC 20 MIN [facility], [address] [place] [address], [id number], tel:[phone] [facility] No Information 2 [facility]. [address], [address] [address], [place], [address]. tel:[phone] Referring Provider: Shikha Grimm, [address] [place] [address] [address], [address]. tel:[phone] Office Visit Level IV [facility] [address] [place] [address], [id number], [place] tel:[phone] [facility] Follow Up of Fibromyalgia Syndrome (chief complaint)Rhe umatoid Arthritis (chief complaint) Immunosuppre ssionSeropos itive Rheumatoid ArthritisFib romyalgiaBod y mass index (BMI) 39.0-39.9, adultMethotr exate, prison, current use 2 [facility]. [facility] Bertin Purvis, [address], [address]. tel:[phone] Primary Practice Provider: Abhishek Griggs, [address] [place] [address] [facility] [place] 36 [address] [facility] Internal Medicine, [place], [address]. tel:[phone] erring Provider: Shikha Grimm, [address] [place], [place] [address]y [address], [place], [address]. tel:[phone] [facility] [address] [place] [address], [id number], tel:[phone] [facility] No Information 1 [facility]. [address], [address], [address]. tel:[phone] Referring Provider: Shikha Wallaceence, [address] [place] [address] [address], [address]. tel:[phone] Office Visit Level IV [facility] [address] [place] [address], [id number], [place] tel:[phone] [facility] Follow Up of Fibromyalgia Syndrome (chief complaint)Rhe umatoid Arthritis (chief complaint) Immunosuppre ssionSeropos itive Rheumatoid ArthritisFib romyalgiaBod y mass index (BMI) 40.0-44.9, adultMethotr exate, prison, current useBody mass index (BMI) 39.0-39.9, adultOther fatigue 1 [facility]. [facility] Bertin Purvis, [address], [address]. tel:[phone] Referring Provider: Shikha Wallaceence, [address] [place] [address] [address], [address]. tel:[phone] [facility] [address] [place], [place] [address]diandra Gutiérrez[address], [id number], tel:[phone] [facility] No Information 1 [facility]. [facility] [address], [address] [place], [address]. tel:[phone] Referring Provider: Shikha Grimm, [address], [address]. tel:[phone] [facility]., [address], [place], [id number], [place] tel:[phone] [facility].. No Information 1 [facility]. [address], [address], [place], [address]. tel:[phone] Referring Provider: Shikha Grimm, [address], [address]. tel:[phone] [facility] .[facility]., [address] [facility] [address] [place] [address], [id number], [place] tel:[phone] [facility]. No Information 1 [facility]. [address], [address], [place], [address]. tel:[phone] Referring Provider: Shikha Grimm, [address], [address]. tel:[phone] [facility]., [address], [id number], [place] tel:[phone] [facility]. Follow Up of Fibromyalgia Syndrome (chief complaint)Rhe umatoid Arthritis (chief complaint) Immunosuppre ssionSeropos itive Rheumatoid ArthritisFib romyalgiaBod y mass index (BMI) 40.0-44.9, adultMethotr exate, director long term care, current use 1 [facility]. [address], [address], [place], [address]. tel:[phone] Office Visit Level IV [facility], [address] [facility] [address] [place] [address], [id number], tel:[phone] [facility] No Information 1 Shiramer Sloan. [address], [address] [address], [place], [place], [id number]. tel:[phone] Referring Provider: Shikha Grimm, [address] [place], [place] [address]y [address], [place], [address]. tel:[phone] [facility].., [address] [place] [address], [id number], tel:[phone] [facility], .S.. Follow Up of Fibromyalgia Syndrome (chief complaint)Rhe umatoid Arthritis (chief complaint) Immunosuppre ssionSeropos itive Rheumatoid ArthritisFib romyalgiaFat igueBody mass index (BMI) 40.0-44.9, adultMethotr exate, director long term care, current use 1 [facility]. [address], [address] [address], [place], [address]. tel:[phone] Office Visit Level IV [facility]., [address], [id number], [place] tel:[phone] [facility].. Follow Up of Fibromyalgia Syndrome (chief complaint)Rhe umatoid Arthritis (chief complaint) Immunosuppre ssionSeropos itive Rheumatoid ArthritisFib romyalgiaFat igueMethotre xate, prison, current useBody mass index (BMI) 40.0-44.9, adult 1 [facility]. [address], [address] [address], [place], [address]. tel:[phone] Primary Practice Provider: Abhishek Griggs, [address] [place] [address] [address] [facility] Medicine, [place], [address]. tel:[phone] erring Provider: Shikha Grimm, [address] [place], [place] [address]y [address], [place], [address]. tel:[phone] [facility] [address], [id number], [place] tel:[phone] [facility] No Information 0 [facility]. [address], [facility] [address], [place], [address]. tel:[phone] Referring Provider: Shikha Grimm, [facility], [address]. tel:[phone] [facility] [address], [id number], [place] tel:[phone] [facility] Follow Up of Fibromyalgia Syndrome (chief complaint)Rhe umatoid Arthritis (chief complaint) Immunosuppre ssionSeropos itive Rheumatoid ArthritisFib romyalgiaFat igueBody mass index (BMI) 45.0-49.9, adultMethotr exate, prison, current useBody mass index (BMI) 40.0-44.9, adult 0 Amador Carrillo. [address], [id number], [place]. tel:[phone] Office Visit Level IV [facility] [address], [id number], [place] tel:[phone] [facility] No Information 0 [facility]. [address], [address] [address], [place], [address]. tel:[phone] Referring Provider: Shikha Grimm [facility], [place], [address]. tel:[phone] [facility] [address], [id number], [place] tel:[phone] [facility] No Information 0 -202 0 [place]. 330 [facility], [facility] [address], [place], [address]. tel:[phone] Referring Provider: Shikha Grimm, Adriana[address], [place], [address]. tel:[phone] [facility], [address] [place] [address], [id number], tel:[phone] [facility] Follow Up of Fibromyalgia Syndrome (chief complaint)Rhe umatoid Arthritis (chief complaint) Immunosuppre ssionSeropos itive Rheumatoid ArthritisFib romyalgiaFat igueBody mass index (BMI) 45.0-49.9, adultMethotr exate, prison, current use Apr-0 0 [place] [employer] Lorena. [address], [id number], . tel:[phone] Office Visit Level IV [facility]., [address], [id number], [place] tel:[phone] [facility] No Information Aug-0 0 [place]. [address] [address], [place], [address]. tel:[phone] Referring Provider: Shikha Grimm, [address], [address]. tel:[phone] [facility]., [address], [id number], [place] tel:[phone] [facility]. No Information Jul-0 0 [place]. 330 [facility], [facility] [address], [place], [address]. tel:[phone] Referring Provider: Shikha Grimm, Adriana[address], [place], [address]. tel:[phone] [facility] .[facility]., [address] [address], [place], [place], [id number], tel:[phone] [facility], .S.. No Information 0 [facility]. [address], [facility] [address], [place], [address]. tel:[phone] Referring Provider: Shikha Grimm, [address] [place] [address] [address], [place], [address]. tel:[phone] Office Visit Level IV [facility], .S., [address], [id number], [place] tel:[phone] [facility] Follow Up of Fibromyalgia Syndrome (chief complaint)Rhe umatoid Arthritis (chief complaint) Immunosuppre ssionSeropos itive Rheumatoid ArthritisFib romyalgiaMet hotrexate, director long term care, current useBody mass index (BMI) 45.0-49.9, adultFatigue 9 [facility]. [address], [address], [address]. tel:[phone] Primary Practice Provider: Abhishek Griggs, [address] [place] [address] 36 [address] [facility] Internal Medicine, [place], [address]. tel:[phone] erring Provider: Shikha Grimm, [address] [place] [address] [address], [place], [address]. tel:[phone] Office Visit Level IV [facility] [address], [id number], [place] tel:[phone] [facility] Follow Up of Fibromyalgia Syndrome (chief complaint)Rhe umatoid Arthritis (chief complaint) Immunosuppre ssionSeropos itive Rheumatoid ArthritisFib romyalgiaBod y mass index (BMI) 40.0-44.9, adultMethotr exate, prison, current use 9 [facility]. [address], [address], [place], [address]. tel:[phone] Primary Practice Provider: Abhishek Griggs, [address] [place] [address] E [facility], [place], [address]. tel:[phone] erring Provider: Shikha Grimm, [address] [place] [address] [address], [place], [address]. tel:[phone] Office Visit Level IV [facility], [address] [place] [address], [id number], [place] tel:[phone] [facility].. Follow Up of Fibromyalgia Syndrome (chief complaint)Rhe umatoid Arthritis (chief complaint) Immunosuppre ssionSeropos itive Rheumatoid ArthritisFib romyalgiaBod y mass index (BMI) 40.0-44.9, adultMethotr exate, prison, current use [facility]. [facility] Bertin Purvis, [address], [address]. tel:[phone] Primary Practice Provider: Abhishek Griggs, [address] [place] [address] E [facility] Internal [facility], [place], [address]. tel:[phone] erring Provider: Shikha Grimm, [address] [place] [address] [address], [place], [address]. tel:[phone] Office Visit Level IV [facility] [address] [place] [address], [id number], [place] tel:[phone] [facility] Follow Up of Fibromyalgia Syndrome (chief complaint)Rhe umatoid Arthritis (chief complaint) Immunosuppre ssionSeropos itive Rheumatoid ArthritisFib romyalgiaMet hotrexate, prison, current useBody mass index (BMI) 40.0-44.9, adult Dec- 8 [facility]. [address], [address], [place], [address]. tel:[phone] Primary Practice Provider: Abhishek Griggs, [address] [place] [address] 36 [address] [facility] Medicine, [place], [address]. tel:[phone] erring Provider: Shikha Sirisha, [address] [place] [address] [address], [place], [place], [address]. tel:[phone] Office Visit Level IV [facility] [address] [place] [address], [id number], [place] tel:[phone] [facility] Follow Up of Fibromyalgia Syndrome (chief complaint)Rhe umatoid Arthritis (chief complaint) Seropositive Rheumatoid ArthritisFib romyalgiaBod y mass index (BMI) 45.0-49.9, adultMethotr exate, director long term care, current useImmunosup pression 8 [facility]. [address] [place] [address], [address], [address]. tel:[phone] Primary Practice Provider: Abhishek Griggs, [address] [place] [address] E [facility] Internal Medicine, [place], [address]. tel:[phone] erring Provider: Shikha Grimm, [address] [place] [address] [address], [place], [address]. tel:[phone] Office Visit Level I [facility] [address] [place] [address], [place], [place], [id number], [place] tel:[phone] [facility] Seropositive Rheumatoid Arthritis 8 [facility]. [address] [facility], [place], [address]. tel:[phone] Referring Provider: Shikha Grimm, [address] [place] [address] [address], [place], [address]. tel:[phone] [facility] [address] [address], [place], [place], [id number], [place] tel:[phone] [facility] No Information 8 [facility]. [address], [address], [place], [address]. tel:[phone] Referring Provider: Shikha Grimm, [address] [place] [address] [address], [address]. tel:[phone] Office Visit Level [facility] [address], [id number], tel:[phone] [facility]. Follow Up of Fibromyalgia Syndrome (chief complaint)Rhe umatoid Arthritis (chief complaint) Seropositive Rheumatoid ArthritisFib romyalgiaBod y mass index (BMI) 45.0-49.9, adultCurrent Use of Steroid MedicationMe thotrexate, director long term care, current useFatigue 8 [facility]. [address], [address], [address]. tel:[phone] Primary Practice Provider: Abhishek Griggs, [address] [place] [address] [address] [place], [address]. tel:[phone] erring Provider: Shikha Grimm, [address] [place] [address] [address], [address]. tel:[phone] Office Visit Level IV [facility], [address], [id number], [place] tel:[phone] [facility] Fibromyalgia Syndrome (chief complaint)Rhe umatoid Arthritis (chief complaint) Seropositive Rheumatoid ArthritisFib romyalgiaCur rent Use of Steroid MedicationMe thotrexate, prison, current useBody mass index (BMI) 45.0-49.9, adult 7 [facility]. [address], [address], [place], [address]. tel:[phone] Primary Practice Provider: Abhishek Griggs [address] [place] [address] 36 E [facility] Medicine, [place], [address]. tel:[phone] erring Provider: Shikha Grimm, [address] [place] [address] [address], [address]. tel:[phone] [facility] [address], [id number], [place] tel:[phone] [facility]. Fibromyalgia Syndrome (chief complaint)Rhe umatoid Arthritis (chief complaint) Seropositive Rheumatoid ArthritisFib romyalgiaMet hotrexate, prison, current useCurrent Use of Steroid Medication [facility]. [address], [address]. tel:[phone] Primary Practice Provider: Abhishek Griggs, [address] [place] [address] E [facility], [place], [address]. tel:[phone] erring Provider: Shikha Grimm, [address] [place] [address] [address], [address]. tel:[phone] New Office Visit Level IV [facility], [address] [place] [address], [id number], [place] tel:[phone] [facility]. Joint Pain (chief complaint) Rheumatoid Factor PositiveArth ralgiaFatigu e 7 [facility]. [address], [address], [address]. tel:[phone] Primary Practice Provider: Abhishek Griggs, [address] [place] [address] E [facility], [place], [address]. tel:[phone] erring Provider: Shikha Grimm, [address] [place], [place] [address] [address], [place], [address]. tel:[phone] [facility], [address] [place] [address], [id number], [place] tel:[phone] [facility] No Information 7 Vanna Wells. [address], [address], [place], [address]. tel:[phone] Referring Provider: Shikha Grimm, [address], [place], [address]. tel:[phone] Family History Family Member Type Diagnosis Age At Onset Mother Problem (finding) Diabetes mellitus Mother Problem (finding) Arthritis Problem (finding) Family history of hyper tension Immunizations Vaccine Date Status Comments Flu (split) (3 yrs or older) administered Source: Other Provider Flu (split) (3 yrs or older) administered Note: aprox date ; Source: Public Agency Payers Payer name Insurance type Covered libertarian ID Authoriza tibridget(s) [facility] [id number] Medicare [id number] Social History Type Description Quantity Date Captured Comments Sex Female Smoking Status No Information Chief Complaint And Reason For Visit No Information Reason For Referral Reason For Referral No Information Plan Of Treatment Date Type Action Status Goal Lifestyle educat ion regarding diet completed Goal Lifestyle educat ion regarding diet completed Goal Lifestyle educat ion regarding diet completed Goal Lifestyle educat ion regarding diet completed Goal Lifestyle educat ion regarding diet completed Goal Lifestyle educat ion regarding diet completed Goal Lifestyle educat ion regarding diet completed Goal Lifestyle educat ion regarding diet completed Goal Lifestyle educat ion regarding diet completed Goal Dietary manageme nt education, guidance, and counseling completed Appointment Andreina Samano BOOKED Patient Education Neck Arthritis: Exercis es completed Patient Education Foot Arthritis: Exercis es completed Patient Education Low Back Arthritis: Exe rcises completed Patient Education Shoulder Arthritis: Exe rcises completed Patient Education Hip Arthritis: Exercise s completed Patient Education Knee Arthritis: Care In structions completed Patient Education Thumb Arthritis: Exerci ses completed Patient Education Hand Arthritis: Exercis es completed Patient Education Hand Arthritis: Exercis es completed Patient Education Foot Arthritis: Exercis es completed Patient Education Arthritis: Care Instruc tions completed Patient Education Rheumatoid Art hritis Diet: Care Instru completed Future Order: Lab Order Acute He patitis Panel (255893), Ordered on: Ordered Future Order: Lab Order CBC With Differential/Platelet ([id number]), Ordered on: Ordered Future Order: Lab Order C-Reacti ve Protein, Quant (130826), Ordered on: Ordered Future Order: Lab Order Comp. Sd tabolic Panel (14) ([id number]), Ordered on: Ordered Future Order: Lab Order QuantiFE GÓMEZ TB Gold Plus(in Tube) (360793), Ordered on: Ordered Future Order: Lab Order Sediment ation Rate-Westergren (748976), Ordered on: Ordered Future Order: Lab Order CBC With Differential/Platelet (864113), Ordered on: Ordered Future Order: Lab Order Comp. Sd tabolic Panel (14) (143736), Ordered on: Ordered Future Order: Lab Order C-Reacti ve Protein, Quant (494009), Ordered on: Ordered Future Order: Lab Order Sediment ation Rate-Westergren (512575), Ordered on: Ordered Future Order: Lab Order QuantiFE GÓMEZ TB Gold Plus(in Tube) (947507), Ordered on: Ordered Future Order: Lab Order CBC With Differential/Platelet (400624), Ordered on: Ordered Future Order: Lab Order Comp. Me tabolic Panel (14) (926420), Ordered on: Ordered Future Order: Lab Order C-Reacti ve Protein, Quant (960660), Ordered on: Ordered Future Order: Lab Order Sediment ation Rate-Westergren (536216), Ordered on: Ordered Future Order: Lab Order Hepatiti s Panel (4) (820781), Ordered on: Ordered Future Order: Lab Order CBC With Differential/Platelet (406386), Ordered on: Ordered Future Order: Lab Order Comp. Me tabolic Panel (14) (626508), Ordered on: Ordered Future Order: Lab Order C-Reacti ve Protein, Quant (201393), Ordered on: Ordered Future Order: Lab Order Sediment ation Rate-Westergren (834130), Ordered on: Ordered Future Order: Lab Order Hepatiti s Panel (4) (204343), Ordered on: Ordered Future Order: Lab Order CBC With Differential/Platelet (343419), Ordered on: Ordered Future Order: Lab Order Comp. Me tabolic Panel (14) (678161), Ordered on: Ordered Future Order: Lab Order C-Reacti ve Protein, Quant (908247), Ordered on: Ordered Future Order: Lab Order Sediment ation Rate-Westergren (934404), Ordered on: Ordered Future Order: Lab Order CBC With Differential/Platelet (880145), Ordered on: Ordered Future Order: Lab Order Comp. Me tabolic Panel (14) (396657), Ordered on: Ordered Future Order: Lab Order C-Reacti ve Protein, Quant (192128), Ordered on: Ordered Future Order: Lab Order Sediment ation Rate-Westergren (956810), Ordered on: Ordered Future Order: Lab Order Hepatiti s Panel (4) (008874), Ordered on: Ordered Future Order: Lab Order Quanti FERON - TB Gold IT Plus (Theratest) (TBGP), Ordered on: Ordered Future Order: Lab Order CBC With Differential/Platelet (960700), Ordered on: Ordered Future Order: Lab Order C-Reacti ve Protein, Quant (042647), Ordered on: Ordered Future Order: Lab Order Comp. Me tabolic Panel (14) (201079), Ordered on: Ordered Future Order: Lab Order Sediment ation Rate-Westergren (084553), Ordered on: Ordered Future Order: Lab Order CBC With Differential/Platelet (699252), Ordered on: Ordered Future Order: Lab Order Comp. Me tabolic Panel (14) (105237), Ordered on: Ordered Future Order: Lab Order C-Reacti ve Protein, Quant (347978), Ordered on: Ordered Future Order: Lab Order Sediment ation Rate-Westergren (064906), Ordered on: Ordered Future Order: Lab Order Hepatiti s Panel (4) (604253), Ordered on: Ordered Future Order: Lab Order QuantiFE GÓMEZ TB Gold (In Tube) (269797), Ordered on: Ordered Future Order: Lab Order CBC With Differential/Platelet (436261), Ordered on: Ordered Future Order: Lab Order Comp. Me tabolic Panel (14) (746805), Ordered on: Ordered Future Order: Lab Order C-Reacti ve Protein, Quant (846424), Ordered on: Ordered Future Order: Lab Order Sediment ation Rate-Westergren (772039), Ordered on: Ordered Future Order: Lab Order CBC With Differential/Platelet (202249), Ordered on: Ordered Future Order: Lab Order Comp. Me tabolic Panel (14) (939370), Ordered on: Ordered Future Order: Lab Order C-Reacti ve Protein, Quant (132296), Ordered on: Ordered Future Order: Lab Order Sediment ation Rate-Westergren (764510), Ordered on: Ordered Future Order: Lab Order Hepatiti s Panel (4) (085618), Ordered on: Ordered Future Order: Lab Order Quanti FERON - TB Gold IT Plus (Theratest) (TBGP), Ordered on: Ordered Future Order: Lab Order CBC With Differential/Platelet (003444), Ordered on: Ordered Future Order: Lab Order Comp. Me tabolic Panel (14) (324242), Ordered on: Ordered Future Order: Lab Order C-Reacti ve Protein, Quant (038902), Ordered on: Ordered Future Order: Lab Order Sediment ation Rate-Westergren (536657), Ordered on: Ordered Future Order: Lab Order CBC With Differential/Platelet (948015), Ordered on: Ordered Future Order: Lab Order Comp. Me tabolic Panel (14) (244213), Ordered on: Ordered Future Order: Lab Order C-Reacti ve Protein, Quant (982874), Ordered on: Ordered Future Order: Lab Order Sediment ation Rate-Westergren (410023), Ordered on: Ordered Future Order: Radiology Order Ch est X-ray, AP/Lat (2 Views) (77138), Ordered on: Ordered Future Order: Lab Order CBC With Differential/Platelet (798087), Ordered on: Ordered Future Order: Lab Order Comp. Me tabolic Panel (14) (215546), Ordered on: Ordered Future Order: Lab Order Hepatiti s Panel (4) (405785), Ordered on: Ordered Future Order: Lab Order C-Reacti ve Protein, Quant (103331), Ordered on: Ordered Future Order: Lab Order Sediment ation Rate-Westergren (213417), Ordered on: Ordered Future Order: Lab Order Quanti FERON - TB Gold IT Plus (Theratest) (TBGP), Ordered on: Ordered Future Order: Lab Order C-Reacti ve Protein, Quant (780718), Ordered on: Ordered Future Order: Lab Order CBC With Differential/Platelet (957056), Ordered on: Ordered Future Order: Lab Order Comp. Me tabolic Panel (14) (905333), Ordered on: Ordered Future Order: Lab Order Sediment ation Rate-Westergren (375649), Ordered on: Ordered Future Order: Lab Order CBC With Differential/Platelet (313588), Ordered on: Ordered Future Order: Lab Order Comp. Me tabolic Panel (14) (069134), Ordered on: Ordered Future Order: Lab Order C-Reacti ve Protein, Quant (345911), Ordered on: Ordered Future Order: Lab Order Sediment ation Rate-Westergren (146003), Ordered on: Ordered Future Order: Lab Order CBC With Differential/Platelet (242317), Ordered on: Ordered Future Order: Lab Order Comp. Me tabolic Panel (14) (329983), Ordered on: Ordered Future Order: Lab Order C-Reacti ve Protein, Quant (796247), Ordered on: Ordered Future Order: Lab Order Sediment ation Rate-Westergren (030004), Ordered on: Ordered Future Order: Radiology Order Ch est X-ray, AP/Lat (2 Views) (91475), Ordered on: Ordered Future Order: Lab Order CBC With Differential/Platelet (808877), Ordered on: Ordered Future Order: Lab Order Comp. Me tabolic Panel (14) (080600), Ordered on: Ordered Future Order: Lab Order C-Reacti ve Protein, Quant (578033), Ordered on: Ordered Future Order: Lab Order Sediment ation Rate-Westergren (443947), Ordered on: Ordered Future Order: Lab Order Hepatiti s Panel (4) (366203), Ordered on: Ordered Future Order: Lab Order QuantiFE GÓMEZ- TB Gold IT (Theratest) (TBQ), Ordered on: Ordered Future Order: Lab Order CBC With Differential/Platelet (585881), Ordered on: Ordered Future Order: Lab Order Comp. Sd tabolic Panel (14) (318908), Ordered on: Ordered Future Order: Lab Order C-Reacti ve Protein, Quant (005374), Ordered on: Ordered Future Order: Lab Order Sediment ation Rate-Westergren (296170), Ordered on: Ordered Future Order: Lab Order C-Reacti ve Protein, Quant (876039), Ordered on: Ordered Future Order: Lab Order Sediment ation Rate-Westergren (968928), Ordered on: Ordered Future Order: Lab Order CBC With Differential/Platelet (049494), Ordered on: Ordered Future Order: Lab Order Comp. Sd tabolic Panel (14) (345037), Ordered on: Ordered Future Order: Lab Order CBC With Differential/Platelet (347248), Ordered on: Ordered Future Order: Lab Order Comp. Sd tabolic Panel (14) (584554), Ordered on: Ordered Future Order: Lab Order Cyclic C itrullinated Peptide-4P (CCP4P), Ordered on: Ordered Future Order: Lab Order EL-NADEEM/9 HIEU Sulema Method IgG (FLW1WBD), Ordered on: Ordered Future Order: Lab Order Rheumato id Factor/3 IgM, IgG, IgA (RF3), Ordered on: Ordered Future Order: Radiology Order Ch est X-ray; AP/Lat (2 views) (88999), Ordered on: Ordered Future Order: Radiology Order Gray nd X-ray; Limited (2 views) (48151), Ordered on: Ordered Future Order: Radiology Order Fo ot X-ray; Complete (3+ views) (27031), Ordered on: Ordered Future Order: Lab Order Antinucl ear Antibodies, NADEEM, IFA (835910), Ordered on: Ordered Future Order: Lab Order CBC With Differential/Platelet (259754), Ordered on: Ordered Future Order: Lab Order Comp. Me tabolic Panel (14) (840097), Ordered on: Ordered Future Order: Lab Order C-Reacti ve Protein, Quant (365320), Ordered on: Ordered Future Order: Lab Order Creatine Kinase,Total,Serum (788966), Ordered on: Ordered Future Order: Lab Order Hepatiti s Panel (4) (148195), Ordered on: Ordered Future Order: Lab Order Sediment ation Rate-Westergren (287216), Ordered on: Ordered Future Order: Lab Order Uric Aci d, Serum (848335), Ordered on: Ordered History Of Present Illness Encounter Date Complaint History Of Prese nt Illness Follow Up of Fibromyalgia Syndro me Rheumatoid Arthritis Follow Up of Fibromyalgia Syndro me Rheumatoid Arthritis Follow Up of Fibromyalgia Syndro me Rheumatoid Arthritis Follow Up of Fibromyalgia Syndro me Rheumatoid Arthritis Follow Up of Fibromyalgia Syndro me Rheumatoid Arthritis Follow Up of Fibromyalgia Syndro me Rheumatoid Arthritis Follow Up of Fibromyalgia Syndro me Rheumatoid Arthritis Follow Up of Fibromyalgia Syndro me Rheumatoid Arthritis Rheumatoid Arthritis Follow Up of Fibromyalgia Syndro me Follow Up of Fibromyalgia Syndro me Rheumatoid Arthritis Follow Up of Fibromyalgia Syndro me Rheumatoid Arthritis Follow Up of Fibromyalgia Syndro me Rheumatoid Arthritis Follow Up of Fibromyalgia Syndro me Rheumatoid Arthritis Follow Up of Fibromyalgia Syndro me Rheumatoid Arthritis Follow Up of Fibromyalgia Syndro me Rheumatoid Arthritis Follow Up of Fibromyalgia Syndro me Rheumatoid Arthritis Follow Up of Fibromyalgia Syndro me Rheumatoid Arthritis Rheumatoid Arthritis Follow Up of Fibromyalgia Syndro me Rheumatoid Arthritis Fibromyalgia Syndrome Fibromyalgia Syndrome Rheumatoid Arthritis Joint Pain Functional Status Date Functional Assessmen t No Information Instructions Date Instruction Additional Infor heidi With next lab draw w e will recheck/update the patient's TB and hepatitis status Related to Other fatigue 1. CBC and CMP every 8-12 weeks to monitor for medication toxicity. 2. No recent serious infections.3. Refill today Related to High Risk Medication Use 1. H & P consistent with this diagnosis. 2. Encourage aerobic activity and sleep hygiene.3. If she has not had a sleep study/consultation consider getting this done. 4. She seems stable 5. She will follow up with us in 3-4 months.6. Weight loss would be helpful.7. She has taken gabapentin 8. She has tried muscle relaxers like Baclofen PRN 9. She has taken NSAIDS like ibuprofen PRN 10. She has taken an SSRI. Treating anxiety/depression can help improve myofascial pain 11. She has taken/tried hydrocodone/APAP PRN Related to Fibromyalgia 1. Continue Arava. 2 . Check labs every 8-12 weeks for medication toxicity monitoring3. She seems well today. 4. Follow up in 3-4 months5. She is now on Enbrel and is feeling better.6. We gave her a handout on neck arthritis to take home an review Related to Seropositive Rheumatoid Arthritis 1. Hold if the patie nt develops infection. 2. Avoid live vaccines while on this medication. 3. No recent serious infections4. No injection site reactions. 5. Also hold this medication perioperatively if the patient is going to have a surgical procedure Related to Immune deficiency due to current drug Lifestyle education regarding di et Related to Body mass index [BMI] 37.0-37.9, adult 1. Continue Arava. 2 . Inflectra was stopped when patient assistance was no longer available.3. Check labs every 8-12 weeks for medication toxicity monitoring4. Stopped mtx 12/10 per pt request. 5. She seems well today. 6. Follow up in 3-4 months7. She is now on Enbrel and is feeling better. Related to Seropositive Rheumatoid Arthritis 1. H & P consistent with this diagnosis. 2. Encourage aerobic activity and sleep hygiene.3. If she has not had a sleep study/consultation consider getting this done. 4. She seems stable 5. She will follow up with us in 3-4 months.6. Weight loss would be helpful.7. She has taken gabapentin 8. She has tried muscle relaxers like Baclofen PRN 9. She has taken NSAIDS like ibuprofen PRN 10. She has been on an SSRI. Treating anxiety/depression can help improve myofascial pain 11. She has taken/tried hydrocodone/APAP PRN Related to Fibromyalgia 1) Hold with infecti ons2) Hold 2 weeks pre and post op for surgeries3) Labs every 8-12 weeks. Related to High Risk Medication Use 1. Hold if the patie nt develops infection. 2. Avoid live vaccines while on this medication. 3. No recent serious infections4. No infusion reactions 5. Also hold this medication perioperatively if the patient is going to have a surgical procedure Related to Immune deficiency due to current drug Update Q Related to Other fatigue 1) Hold with infecti ons2) Hold 2 weeks pre and post op for surgeries3) Labs every 8-12 weeks. Related to High Risk Medication Use 1. Hold if the patie nt develops infection. 2. Avoid live vaccines while on this medication. 3. No recent serious infections4. No infusion reactions 5. Also hold this medication perioperatively if the patient is going to have a surgical procedure Related to Immune deficiency due to current drug 1. H & P consistent with this diagnosis. 2. Encourage aerobic activity and sleep hygiene.3. If she has not had a sleep study/consultation consider getting this done. 4. She seems stable 5. She will follow up with us in 3-4 months.6. Weight loss would be helpful.7. She has taken gabapentin 8. She has tried muscle relaxers like Baclofen PRN 9. She has taken NSAIDS like ibuprofen PRN 10. She has been on an SSRI. Treating anxiety/depression can help improve myofascial pain 11. She has taken/tried hydrocodone/APAP PRN Related to Fibromyalgia 1. Continue Arava. 2 . Continue IV Inflectra She finds this helpful.3. Check labs every 8-12 weeks for medication toxicity monitoring4. Stopped mtx 12/10 per pt request. 5. She seems well today. 6. Follow up in 3-4 months Related to Seropositive Rheumatoid Arthritis Lifestyle education regarding di et Related to Body mass index [BMI] 39.0-39.9, adult Q TB updated 12/07/21 but hepatitis was not drawn. I will order this with next labs. Related to Fatigue 1. H & P consistent with this diagnosis. 2. Encourage aerobic activity and sleep hygiene.3. If she has not had a sleep study/consultation consider getting this done. 4. She seems stable 5. She will follow up with us in 3-4 months.6. Weight loss would be helpful.7. She has taken gabapentin 8. She has tried muscle relaxers like Baclofen PRN 9. She has taken NSAIDS like ibuprofen PRN 10. She has been on an SSRI. Treating anxiety/depression can help improve myofascial pain 11. She has taken/tried hydrocodone/APAP PRN Related to Fibromyalgia 1. Patient to take 0 .3mL methotrexate next week and then stop methotrexate per patient request.2. Continue IV Inflectra She finds this helpful.3. Check labs every 8-12 weeks for medication toxicity monitoring4. We gave her a patient education handout on back arthritis to take home and review5. She seems well today. 6. Follow up in 3-4 months7. Start Arava after she completes methotrexate. Arava 20mg po daily. I will give her a handout on Arava. Related to Seropositive Rheumatoid Arthritis 1. Hold if the patie nt develops infection. 2. Avoid live vaccines while on this medication. 3. No recent serious infections4. No infusion reactions 5. Also hold this medication perioperatively if the patient is going to have a surgical procedure Related to Immunosuppression Stop due to patient request.She will take 0.3 mL next week and then stop. Related to Methotrexate, prison, current use Lifestyle education regarding di et Related to Body mass index [BMI] 40.0-44.9, adult With next lab draw w e will recheck/update the patient's TB and hepatitis status Related to Fatigue 1. H & P consistent with this diagnosis. 2. Encourage aerobic activity and sleep hygiene.3. If she has not had a sleep study/consultation consider getting this done. 4. She seems stable 5. She will follow up with us in 3-4 months.6. Weight loss would be helpful.7. She has taken gabapentin 8. She has tried muscle relaxers like Baclofen PRN 9. She has taken NSAIDS like ibuprofen PRN 10. She has been on an SSRI. Treating anxiety/depression can help improve myofascial pain 11. She has taken/tried hydrocodone/APAP PRN Related to Fibromyalgia 1. CBC and CMP every 8-12 weeks to monitor for medication toxicity. 2. Take folate supplements daily.3. No recent serious infections.4. Refill today5. At higher doses she has had elevated LFTS Related to Methotrexate, prison, current use 1. Hold if the patie nt develops infection. 2. Avoid live vaccines while on this medication. 3. No recent serious infections4. No infusion reactions 5. Also hold this medication perioperatively if the patient is going to have a surgical procedure Related to Immunosuppression 1. Continue/refill M TX & folic acid2. Continue IV Inflectra3. Check labs every 8-12 weeks for medication toxicity monitoring4. We gave her a patient education handout on back arthritis to take home and review5. She seems well today. 6. Follow up in 3-4 months Related to Seropositive Rheumatoid Arthritis Lifestyle education regarding di et Related to Body mass index [BMI] 40.0-44.9, adult 1. CBC and CMP every 8-12 weeks to monitor for medication toxicity. 2. Take folate supplements daily.3. No recent serious infections.4. Refill today5. At higher doses she has had elevated LFTS Related to Methotrexate, prison, current use 1. Continue/refill M TX & folic acid2. Continue IV Inflectra3. Check labs every 8-12 weeks for medication toxicity monitoring4. We gave her a patient education handout to take home and review5. She seems well today. 6. Follow up in 3-4 months Related to Seropositive Rheumatoid Arthritis 1. H & P consistent with this diagnosis. 2. Encourage aerobic activity and sleep hygiene.3. If she has not had a sleep study/consultation consider getting this done. 4. She seems stable 5. She will follow up with us in 3-4 months.6. Weight loss would be helpful.7. She is on gabapentin 8. She takes Baclofen PRN 9. She has taken NSAIDS like ibuprofen PRN 10. She is on an SSRI. Treating anxiety/depression can help improve myofascial pain 11. She is on hydrocodone/APAP PRN Related to Fibromyalgia 1. Hold if the patie nt develops infection. 2. Avoid live vaccines while on this medication. 3. No recent serious infections4. No infusion reactions 5. Also hold this medication perioperatively if the patient is going to have a surgical procedure Related to Immunosuppression Lifestyle education regarding di et Related to Body mass index [BMI] 40.0-44.9, adult Update hepatitis and QTB Related to Other fatigue 1. Last dose of IV I nflectra was today, 02/11/21.2. MTX was held from 04/28/20 until 08/2020 due to illness. 3. 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 She has completed itraconazole. she has been cleared to restart meds. 4. Continue inflectra 5. Check labs6. Follow up in 3-4 months7. Change methotrexate to injectable as she is not tolerating pills due to abdominal pain and cramping. Related to Seropositive Rheumatoid Arthritis 1. Labs every 8-12 w eeks.2. No recent infections.3. Medicines to be held preoperatively and postoperatively in event of surgery.4. She has completed the Moderna Covid-19 vaccine. Related to Immunosuppression Change mtx to inject able. She does not tolerate the pills well due to SE. Related to Methotrexate, [facility], current use 1. H & P consistent with this diagnosis. 2. Encourage aerobic activity and sleep hygiene.3. If she has not had a sleep study/consultation consider getting this done. 4. She has chronic pain5. She will follow up with us in 3-4 months.6. Weight loss would be helpful.7. She is on gabapentin 8. She takes Baclofen PRN 9. She stopped ibuprofen thinking it was hurting her [id number]. She is on an SSRI. Treating anxiety/depression can help improve myofascial pain 11. She is on hydrocodone/APAP PRN Related to Fibromyalgia Lifestyle education regarding di et Related to Body mass index [BMI] 39.0-39.9, adult 1. Last dose of IV I nflectra was 03/10/20.2. MTX was held from 04/28/20 until 08/2020 due to illness. 3. 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 She has completed itraconazole. she has been cleared to restart meds. 4. Awaiting receipt of Inflectra from [facility] to restart infusion. 5. Check labs6. Follow up in 3-4 months Related to Seropositive Rheumatoid Arthritis Her last dose as . Cleared to restartawaiting meds Related to Immunosuppression restarted 08/2020 Related to Meth otrexate, prison, current use 1. H & P consistent with this diagnosis. 2. Encourage aerobic activity and sleep hygiene.3. If she has not had a sleep study/consultation consider getting this done. 4. She has chronic pain5. She will follow up with us in 3-4 months.6. Weight loss would be helpful.7. She is on gabapentin 8. She takes Baclofen PRN 9. She stopped ibuprofen thinking it was hurting her . She is on an SSRI. Treating anxiety/depression can help improve myofascial pain 11. She is on hydrocodone/APAP PRN Related to Fibromyalgia 1. H & P consistent with this diagnosis. 2. Encourage aerobic activity and sleep hygiene.3. If she has not had a sleep study/consultation consider getting this done. 4. She has chronic pain5. She will follow up with us in 3-4 months.6. Weight loss would be helpful.7. She is on gabapentin 8. She takes Baclofen PRN 9. She stopped ibuprofen thinking it was hurting her [id number]. She is on an SSRI. Treating anxiety/depression can help improve myofascial pain 11. She is on hydrocodone/APAP PRN Related to Fibromyalgia Her last dose as . 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 Last dose of IV I nflectra was 03/10/20.2. MTX has been held since 04/28/20. 3. 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 She is currently taking itraconazole. She will let us know when she has been cleared to restart her medications for RA4. I gave her an educational handout to take home and review5. Check labs6. 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 Last dose of IV I nflectra was 03/10/20.2. MTX has been held since 04/28/20. 3. 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 She is currently taking itraconazole. She will let us know when she has been cleared to restart her medications for RA4. I gave her an educational handout to take home and review5. Check labs6. Follow up in 3-4 months Related to Seropositive Rheumatoid Arthritis 1. H & P consistent with this diagnosis. 2. Encourage aerobic activity and sleep hygiene.3. If she has not had a sleep study/consultation consider getting this done. 4. She has chronic pain5. She will follow up with us in 3-4 months.6. Weight loss would be helpful.7. She is on gabapentin 8. She takes Baclofen PRN 9. She stopped ibuprofen thinking it was hurting her [id number]. She is on an SSRI. Treating anxiety/depression can help improve myofascial pain 11. 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 Related to Immunosuppression 1. H & P consistent with this diagnosis. 2. Encourage aerobic activity and sleep hygiene.3. If she has not had a sleep study/consultation consider getting this done. 4. We have discussed this issue. 5. She will follow up with us in 3-4 months.6. Weight loss would be helpful.7. She is on gabapentin 8. She takes Baclofen PRN 9. She stopped ibuprofen thinking it was hurting her [id number]. She is on an SSRI. Treating anxiety/depression can help improve myofascial pain 11. She is on hydrocodone/APAP PRN Related to Fibromyalgia ImprovedTB updated 05/2019 Relate d to Fatigue 1. She thinks Inflec tra is working now. 2. She no longer takes steroids due to her diabetes. 3. Continue MTX/folic acid 4. She is seeing podiatry 5. Follow up in 3-4 months. 6. Refill medicine. 7. She will receive Infletra today.8. Prognosis is fair. Related to Seropositive Rheumatoid Arthritis 1. CBC and CMP every 8-12 weeks to monitor for toxicity. 2. Take folate supplements daily.3. No recent serious infections.4. 08/26/2019 labs were fine. 5. Standing lab order was renewed & given to the patient. Related to Methotrexate, prison, current use Lifestyle education regarding di et Related to Body mass index (BMI) 40.0-44.9, adult Improved Related to Fatig ue 1. H & P consistent with this diagnosis. 2. Encourage aerobic activity and sleep hygiene.3. If she has not had a sleep study/consultation consider getting this done. 4. We have discussed this issue. 5. She will follow up with us in 3-4 months.6. Weight loss would be helpful.7. She is on gabapentin 8. She takes Baclofen PRN 9. She stopped ibuprofen thinking it was hurting her [id number]. She is on an SSRI. Treating anxiety/depression can help improve myofascial pain 11. She is on hydrocodone/APAP PRN Related to Fibromyalgia 1. CBC and CMP every 8-12 weeks to monitor for toxicity. 2. Take folate supplements daily.3. No recent serious infections.4. 05/13/19 labs were fine. 5. Standing lab order was renewed & given to the patient. Related to Methotrexate, prison, current use 1. She is unsure of Inflectra is helping.2. She no longer takes steroids due to her diabetes. 3. Continue MTX/folic acid 4. She is seeing podiatry 5. Follow up in 3-4 months. 6. Refill medicine. 7. She received last loading dose of Inflectra today.8. Prognosis is fair. Related to Seropositive Rheumatoid Arthritis Check TB status, hep atitis panel, and CXR Related to Fatigue 1. H & P consistent with this diagnosis. 2. Encourage aerobic activity and sleep hygiene.3. If she has not had a sleep study/consultation consider getting this done. 4. We have discussed this issue. 5. She will follow up with us in 3-4 months.6. Weight loss would be helpful.7. She is on gabapentin 8. She takes Baclofen PRN 9. She stopped ibuprofen thinking it was hurting her [id number]. She is on an SSRI. Treating anxiety/depression can help improve myofascial pain 11. She is on hydrocodone/APAP PRN Related to Fibromyalgia Stop Humira per patient's reques t. Related to Immunosuppression 1. She feels like he r condition is getting worse. She wants to stop Humira and try something different. I am going to discontinue Humira as requested. We will try and get her approved to try IV Simponi. Risks and benefits reviewed. 2. She no longer takes steroids due to her diabetes. 3. Continue MTX/folic acid 4. She is seeing podiatry 5. Follow up in 3-4 months. 6. Refill medicine. 7. Check labs & CXR today. 8. Prognosis is fair. Related to Seropositive Rheumatoid Arthritis 1. CBC and CMP every 8-12 weeks to monitor for toxicity. 2. Take folate supplements daily.3. No recent serious infections.4. 03/18/2019 labs were fine. 5. Standing lab order was renewed & given to the patient. Related to Methotrexate, prison, current use Lifestyle education regarding di et Related to Body mass index (BMI) 45.0-49.9, adult 1. CBC and CMP every 8-12 weeks to monitor for toxicity. 2. Take folate supplements daily.3. No recent serious infections.4. 12/19/2018 labs were fine. 5. Standing lab order was renewed & given to the patient. Related to Methotrexate, [facility], current use 1. H & P consistent with this diagnosis. 2. Encourage aerobic activity and sleep hygiene.3. If she has not had a sleep study/consultation consider getting this done. 4. We have discussed this issue. 5. She will follow up with us in 3-4 months.6. Weight loss would be helpful.7. She is on gabapentin 8. She takes Baclofen PRN 9. She stopped ibuprofen thinking it was hurting her [id number]. She is on an SSRI. Treating anxiety/depression can help improve myofascial pain 11. She is on hydrocodone/APAP PRN Related to Fibromyalgia 1. She seems stable today. 2. She no longer takes steroids due to her diabetes. 3. Continue MTX/folic acid & Humira. 4. She is seeing podiatry 5. Follow up in 3-4 months. 6. Refill medicine. 7. Check labs prior to next visit. 8. Prognosis is fair. Related to Seropositive Rheumatoid Arthritis 1. Hold if the patie nt develops infection. 2. Avoid live vaccines while on this medication. 3. No recent serious infections4. No injection site reactions. 5. Also hold this medication perioperatively if the patient is going to have a surgical procedure. Related to Immunosuppression 1. She seems stable today. She is recovering from left ankle surgery. 2. She no longer takes steroids due to her diabetes. 3. Continue MTX/folic acid & Humira. 4. She is seeing podiatry 5. Follow up in 3-4 months. 6. Refill medicine. 7. Check labs prior to next visit. 8. Prognosis is fair. Related to Seropositive Rheumatoid Arthritis 1. CBC and CMP every 8-12 weeks to monitor for toxicity. 2. Take folate supplements daily.3. No recent serious infections.4. 08/15/2018 labs were fine. Related to Methotrexate, [facility], current use 1. Hold if the patie nt develops infection. 2. Avoid live vaccines while on this medication. 3. No recent serious infections4. No injection site reactions. 5. Also hold this medication perioperatively if the patient is going to have a surgical procedure. Related to Immunosuppression 1. H & P consistent with this diagnosis. 2. Encourage aerobic activity and sleep hygiene.3. If she has not had a sleep study/consultation consider getting this done. 4. We have discussed this issue. 5. She will follow up with us in 3-4 months.6. Weight loss would be helpful.7. She is on gabapentin 8. She takes Baclofen PRN 9. She stopped ibuprofen thinking it was hurting her [id number]. She is on an SSRI. Treating anxiety/depression can help improve myofascial pain 11. She is on hydrocodone/APAP PRN Related to Fibromyalgia 1. H & P consistent with this diagnosis. 2. Encourage aerobic activity and sleep hygiene.3. If she has not had a sleep study/consultation consider getting this done. 4. We have discussed this issue. 5. She will follow up with us in 3-4 months.6. Weight loss would be helpful.7. She is on gabapentin 8. She takes Baclofen PRN 9. She stopped ibuprofen thinking it was hurting her . She is on an SSRI. Treating anxiety/depression can help improve myofascial pain 11. She is on hydrocodone/APAP PRN Related to Fibromyalgia 1. CBC and CMP every 8-12 weeks to monitor for toxicity. 2. Take folate supplements daily.3. No recent serious infections.4. 03/20/2018 labs were fine. Related to Methotrexate, [facility], current use 1. She is preparing to have left ankle surgery soon. 2. She no longer takes steroids due to her diabetes. 3. Stop/hold Humira & MTX effective immediately. Hold perioperatively until she has recovered and all surgical wounds have healed. 4. She is seeing podiatry and gets injections in her left ankle PRN. 5. Follow up in 3-4 months. 6. Refill medicine. 7. She is still having a lot of pain. Some of which I believe is myofascial in origin. 8. Check labs Related to Seropositive Rheumatoid Arthritis 1. Hold if the patie nt develops infection. 2. Avoid live vaccines while on this medication. 3. No recent serious infections4. No injection site reactions. 5. Also hold this medication perioperatively if the patient is going to have a surgical procedure. Related to Immunosuppression Dietary needs education Related to Body mass index (BMI) 40.0-44.9, adult 1. Hold if the patie nt develops infection. 2. Avoid live vaccines while on this medication. 3. No recent serious infections4. No injection site reactions. 5. Also hold this medication perioperatively if the patient is going to have a surgical procedure. Related to Immunosuppression 1. CBC and CMP every 8-12 weeks to monitor for toxicity. 2. Take folate supplements daily.3. No recent serious infections.4. 09/12/2017 labs were fine. Related to Methotrexate, prison, current use 1. Continue MTX/foli c acid.2. She no longer takes steroids due to her diabetes. 3. She is now on Humira. We will give this more time. 4. She is seeing podiatry and gets injections in her left ankle PRN. 5. Follow up in 3-4 months. 6. Today her left 1st CMC joint was tender to palpation. I offered to refer her to a hand surgeon but she declined. 7. She is still having a lot of pain. Some of which I believe is myofascial in origin. 8. Check labs9. Refill medicine. Related to Seropositive Rheumatoid Arthritis 1. H & P consistent with this diagnosis. 2. Encourage aerobic activity and sleep hygiene.3. If she has not had a sleep study/consultation consider getting this done. 4. We have discussed this issue. 5. She will follow up with us in 3-4 months.6. Weight loss would be helpful.7. She is on gabapentin 8. She takes Baclofen PRN 9. She stopped ibuprofen thinking it was hurting her . She is on an SSRI. Treating anxiety/depression can help improve myofascial pain 11. She is on hydrocodone/APAP PRN Related to Fibromyalgia 1. Continue MTX/foli c acid.2. She no longer takes steroids due to her diabetes. 3. She is still having pain/swelling. 4. I am going to try and get her approved for Humira. Risks and benefits reviewed. 5. Follow up in 3-4 months. Related to Seropositive Rheumatoid Arthritis 1. H & P consistent with this diagnosis. 2. Encourage aerobic activity and sleep hygiene.3. If she has not had a sleep study/consultation consider getting this done. 4. We discussed this issue today. 5. She will follow up with us in 3-4 months.6. Weight loss would be helpful.7. She is on gabapentin 8. She takes Baclofen PRN 9. She stopped ibuprofen thinking it was hurting her [id number]. She is on an SSRI. Treating anxiety/depression can help improve myofascial pain 11. She is on hydrocodone/APAP PRN Related to Fibromyalgia She stopped steroids because they were making her diabetes more difficult to control. Related to Current Use of Steroid Medication 1. CBC and CMP every 8-12 weeks to monitor for toxicity. 2. Take folate supplements daily.3. No recent serious infections.4. 08/08/2017 labs were fine. Related to Methotrexate, [facility], current use Check TB status, hep atitis panel, and CXR. Related to Fatigue We are going to try and taper her off of this. She says it is making her diabetes more difficult to control. Related to Current Use of Steroid Medication 1. Continue MTX/foli c acid. Increase dose of MTX from 15 mg/week to 20 mg/week. Risks and benefits reviewed. Her left ankle is swollen and tender. I am hoping that this will help this issue. 2. We are going to try and taper/stop her prednisone because it is making her diabetes more difficult to control. 3. She says that she feels better. 4. Prognosis seems good5. Follow up in 3-4 months. Related to Seropositive Rheumatoid Arthritis 1. CBC and CMP every 8-12 weeks to monitor for toxicity. 2. Take folate supplements daily.3. No recent serious infections.4. 04/18/2017 labs were fine. 5. Increase the dose to 20 mg/week. See above. Related to Methotrexate, [facility], current use 1. H & P consistent with this diagnosis. 2. Encourage aerobic activity and sleep hygiene.3. If she has not had a sleep study/consultation consider getting this done. 4. We discussed this issue today. 5. She will follow up with us in 3-4 months.6. Weight loss would be helpful.7. She is on gabapentin 8. She takes Baclofen PRN 9. She stopped ibuprofen thinking it was hurting her [id number]. She is on an SSRI. Treating anxiety/depression can help improve myofascial pain 11. She is on hydrocodone/APAP PRN Related to Fibromyalgia Dietary management e ducation, guidance, and counseling Related to Body mass index (BMI) 45.0-49.9, adult 1. CBC and CMP every 8-12 weeks to monitor for toxicity. 2. Take folate supplements daily.3. No recent serious infections. Related to Methotrexate, [facility] long term [facility], current use 1. H & P consistent with this diagnosis. 2. Encourage aerobic activity and sleep hygiene.3. If she has not had a sleep study/consultation consider getting this done. 4. Handout on fibromyalgia given to her to take home and review. 5. She will follow up with us in 3-4 months.6. Weight loss would be helpful.7. She is on gabapentin 8. She takes Baclofen PRN 9. She stopped ibuprofen thinking it was hurting her . She is on an SSRI. Treating anxiety/depression can help improve myofascial pain 11. She is on hydrocodone/APAP PRN Related to Fibromyalgia Lower today to 2.5 mg/day. Relat ed to Current Use of Steroid Medication 1. Continue MTX/foli c acid. 2. Lower prednisone from 5 mg/day to 2.5 mg/day.3. She says that she feels better. 4. Prognosis seems good5. Follow up in 3-4 months. Related to Seropositive Rheumatoid Arthritis Check CXR, TB Test, and hepatitis panel. Related to Fatigue 1. H & P consistent with fibromyalgia. 2. Encourage aerobic activity and sleep hygiene.3. She has sleep apnea. Treating sleep apnea can improve myofascial pain. 4. Handout on fibromyalgia given to her to take home and review. 5. She will follow up with us in 2 months.6. Labs today to evaluate for autoimmune disease. 7. Weight loss would be helpful. 8. She is on gabapentin. Her dose could be increased if needed. 9. She is taking Baclofen PRN For muscle pain/spasms. 10. She takes hydrocodone/APAP PRN11. She takes ibuprofen PRN for joint pain. 12. She is on an SSRI. Treating anxiety/depression can improve myofascial pain. Related to Arthralgia 1. Labs and x-rays t alfredo to evaluate for rheumatoid arthritis. We will contact the patient with these results once these are available. 2. We also need to check for viral hepatitis. Viral hepatitis can cause a false +RF test in some instances. If the patient does have RA he or she will require immune suppression and we need to know if the patient has a condition like chronic Hep B/C. 3. Also test Sj???gren's antibodies. Patient's with Sj???gren's disease often have +RF tests. 4. Handout on +RF tests given to the patient to take home and review. 5. Follow up with us within 2 months. Related to Rheumatoid Factor Positive Assessments Type Assessment Date No Information Patient Care Teams Name Effective Dates (start - stop) Status Members No Information
--- NOTE | 2023-05-17 09:17 | XR_ITS ---
FINAL REPORT CLINICAL HISTORY: foot pain COMPARISON: 05/09/2023 FINDINGS: Left foot Three views were obtained. There is a comminuted, mildly displaced fracture of the distal 5th metatarsal. There are mild hypertrophic changes at the 1st MTP joint. Orthopedic hardware is securing the mortise and subtalar joint. IMPRESSION: Stable appearance of the distal 5th metatarsal fracture. Reviewed, Interpreted and Dictated by Pato Dorsey MD Transcribed by Mami Mccarthy Authenticated and [facility]
== END ==
LOC: RAD 09:14
PROVIDERS: PCP Internal Medicine Adolescent Medicine; Visit Provider Podiatrist
DX: M79.672 Pain in left foot (principal)
CPT/HCPCS: 73630

== ENCOUNTER 2023-06-13 12:48 | Outpatient (CLI) | payer OTHER, MEDICARE, SELFPAY ==
--- OUTSIDE RECORDS SUMMARY | 2023-06-13 12:56 | XMS_ITS | Continuity of Care Document ---
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 Name Role Phone Russell Prabhakar DO Unavailable [...] tablet TAKE 1 TABLET DAILY - Active citalopram 40 mg tablet take 1 tablet by oral route every day 40 MG - Active hydrochlorothiazide 12.5 mg tablet take 1 tablet by oral route every day 12.5 MG - Active Trulicity 0.75 mg/0.5 mL subcutaneous pen injector inject (0.75MG) by subcutaneous route every week 0.75 MG - Active bisoprolol fumarate 10 mg tablet take 0.5 tablet by oral route every day 5 MG - Active diltiazem ER 120 mg capsule,extended release 12 hr take 1 capsule by oral route every day 120 MG - Active Jardiance 25 mg tablet take 1 tablet by oral route every day in the morning 25 MG - Active gabapentin 400 mg capsule take 1 capsule by oral route 3 times every day 400 MG - Active baclofen 10 mg tablet take 1 tablet by oral route 2 times every day 10 MG - Active Xarelto 20 mg tablet take 1 tablet by oral route every day with the evening meal 20 MG - Active hydrocodone 7.5 mg-acetaminophen 300 mg tablet take 1 tablet by oral route every 6 hours as needed 1.00 tablet - Active esomeprazole magnesium 40 mg capsule,delayed release take 1 capsule by oral route every day 40 MG - Active sucralfate 1 gram tablet take 1 tablet b y oral route every day on an empty stomach 1 hour before meals and at bedtime 1 G - Active Arava 20 mg tablet TAKE 1 TABLET DAILY - No Longer Active Enbrel SureClick 50 mg/mL (1 mL) subcutaneous pen injector INJECT 1 ML UNDER THE SKIN EVERY WEEK - No Longer Active PA approved until 10/26/23. LEFLUNOMIDE TABS 20MG TAKE 1 TABLET DAILY - No Longer Active Procedures Procedure Date Office Visit Level [...] >30 Min Ap Normal Saline Solution Infusion 022 CH[facility]ARE MGMT SRVC 20 MIN Office Visit Level IV Inflectra 10mg Chemo Therapy Admin IV Infus Up 1 Hr Jun Chemo Therapy Admin IV Inf Ea >30 Min Fe Normal Saline Solution Infusion 022 Inflectra 10mg Chemo Therapy Admin IV Infus Up 1 Hr Mar Chemo Therapy Admin IV Inf Ea >30 Min No Normal Saline Solution Infusion 021 Office Visit Level IV Inflectra 10mg Chemo Therapy Admin IV Infus Up 1 Hr Jan Chemo Therapy Admin IV Inf Ea >30 Min Se Normal Saline Solution Infusion 021 Inflectra 10mg Chemo Therapy Admin IV Infus Up 1 Hr Nov Chemo Therapy Admin IV Inf Ea >30 Min Normal Saline Solution Infusion Inflectra 10mg Chemo Therapy Admin IV Infus Up 1 Hr Oct Chemo Therapy Admin IV Inf Ea >30 Min Normal Saline Solution Infusion 021 Inflectra 10mg Chemo Therapy Admin IV Infus Up 1 Hr Oct Chemo Therapy Admin IV Inf Ea >30 Min Normal Saline Solution Infusion Office Visit Level IV Office Visit Level IV Inflectra 10mg Chemo Therapy Admin IV Infus Up 1 Hr Feb Chemo Therapy Admin IV Inf Ea >30 Min Oc Normal Saline Solution Infusion Office Visit Level IV Inflectra 10mg Chemo Therapy Admin IV Infus Up 1 Hr Nov Chemo Therapy Admin IV Inf Ea >30 Min Normal Saline Solution Infusion 020 Inflectra 10mg Chemo Therapy Admin IV Infus Up 1 Hr Oct Chemo Therapy Admin IV Inf Ea >30 Min Ju Normal Saline Solution Infusion 020 Office Visit Level IV Inflectra 10mg Chemo Therapy Admin IV Infus Up 1 Hr Aug Chemo Therapy Admin IV Inf Ea >30 Min Ap Normal Saline Solution Infusion 020 Inflectra 10mg Chemo Therapy Admin IV Infus Up 1 Hr Jul Chemo Therapy Admin IV Inf Ea >30 Min Ma Normal Saline Solution Infusion 020 Inflectra 10mg [...] EL-anti-CCP/2 Dna Antb 1 Stranded Dna Antb [place]/2 Stranded Sm,QUAD STAYER/Sm,SSA,SSB,Scl-70,chrom,centromer Rheumatoid Factor Luis E RF/3 IgM 017 RF/3 IgG/IgA Advance Directives Directive Yes / No Effective Date File Name No Information Encounters Encounter Description Practice Location Reason(s) For Visit Diagnoses Date Provider Providers Copied on Encounter Office Visit Level IV [facility] [address] [facility] [address] [place] [address], [id number], tel:[phone] [facility] Follow Up of Fibromyalgia Syndrome (chief complaint)Rhe umatoid Arthritis (chief complaint) Immune deficiency due to current drugSeroposi tive Rheumatoid ArthritisFib romyalgiaHig h Risk Medication UseBody mass index (BMI) 37.0-37.9, adult 4 [facility]. [address], [address], [place], [address]. tel:[phone] Primary Practice Provider: Abhishek Griggs, [address] [place] [address] [address] [facility], [place], [address]. tel:[phone] erring Provider: Shikha Grimm, [facility]0 [facility] [address], [place], [address]. tel:[phone] [facility] [address] [facility] [address] [place] [address], [id number], tel:[phone] [facility], .[facility] No Information 4 [facility]. [address], [address], [place], [address]. tel:[phone] [facility] [address] [place] [address], [id number], [place] tel:[phone] [facility], .[facility] No Information 3 [facility]. [address], [address] [place] [address], [address]. tel:[phone] Office Visit Level IV [facility] [address] [facility] [address] [place] [address], [id number], [place] tel:[phone] [facility] Follow Up of Fibromyalgia Syndrome (chief complaint)Rhe umatoid Arthritis (chief complaint) Immune deficiency due to current drugSeroposi tive Rheumatoid ArthritisFib romyalgiaOth er fatigueBody mass index (BMI) 39.0-39.9, adultHigh Risk Medication Use 3 [facility]. [address] [place] [address], [address]. tel:[phone] Primary Practice Provider: Abhishek Griggs, [address] [place] [address] [address] [facility], [place], [address]. tel:[phone] erring Provider: Shikha Grimm, [address] [place] [address] [address], [address]. tel:[phone] Office Visit Level IV [facility], [address] [place] [address], [id number], tel:[phone] [facility] Follow Up of Fibromyalgia Syndrome (chief complaint)Rhe umatoid Arthritis (chief complaint) Immune deficiency due to current drugSeroposi tive Rheumatoid ArthritisFib romyalgiaBod y mass index (BMI) 39.0-39.9, adultHigh Risk Medication UseOther fatigue 3 Amador Carrillo. [address] [place] [address], [id number], . tel:[phone] Referring Provider: Shikha Grimm, [address] [place] [address] 36 [address] [facility] [place], [address]. tel:[phone] Office Visit Level IV [facility], [address] [place] [address], [id number], tel:[phone] [facility] Follow Up of Fibromyalgia Syndrome (chief complaint)Rhe umatoid Arthritis (chief complaint) Seropositive Rheumatoid ArthritisFib romyalgiaBod y mass index (BMI) 39.0-39.9, adultImmune deficiency due to current drugHigh Risk Medication Use 2 [facility]. [address] [place] [address], [address]. tel:[phone] Referring Provider: Shikha Grimm [address] [place] [address] [address], [place], [address]. tel:[phone] [facility], .[facility]., [address] [place] [address], [id number], tel:[phone] [facility], .S.. No Information Jan-2 2 [facility]. [address] [place] [address], [address]. tel:[phone] Primary Practice Provider: Abhishek Griggs, [address] [place] [address] [address] [facility], [place], [address]. tel:[phone] erring Provider: Shikha Grimm, [address] [place] [address], [address]. tel:[phone] Office Visit Level IV [facility] [address] [place] [address], [id number], tel:[phone] [facility], .S.. Follow Up of Fibromyalgia Syndrome (chief complaint)Rhe umatoid Arthritis (chief complaint) Immunosuppre ssionSeropos itive Rheumatoid ArthritisFib romyalgiaBod y mass index (BMI) 39.0-39.9, adultMethotr exate, custodial, current useBody mass index (BMI) 40.0-44.9, adultFatigue Dec-3 2 Amador Carrillo. [address] [place] [address], [id number], [place]. tel:[phone] Referring Provider: Shikha Grimm, [address] [place] [address] [address], [address]. tel:[phone] [facility], .[facility]., [address] [place] [address], [id number], tel:[phone] [facility] .[facility] No Information Dec-0 2 [facility]. [address] [place] [address], [address]. tel:[phone] Referring Provider: Shikha Grimm, [address] [place] [address] [address], [place], [address]. tel:[phone] [facility] .[facility], [address], [id number], [place] tel:[phone] [facility], .S.. No Information 2 [facility]. [address], [address], [address]. tel:[phone] Referring Provider: Shikha Grimm, [address] [place] [address] [address], [address]. tel:[phone] Office Visit Level IV [facility], .[facility]., [address] [place] [address], [id number], [place] tel:[phone] [facility] .[facility] Follow Up of Fibromyalgia Syndrome (chief complaint)Rhe umatoid Arthritis (chief complaint) Immunosuppre ssionSeropos itive Rheumatoid ArthritisFib romyalgiaBod y mass index (BMI) 39.0-39.9, adultMethotr exate, ad terminal makeup operator, current useFatigue 2 [facility]. [address], [place] [address], [place], [address]. tel:[phone] Primary Practice Provider: Abhishek Griggs, [address] [place] [address] [facility] [address] [facility], [place], [address]. tel:[phone] erring Provider: Shikha Grimm, [address] [place] [address] [address], [place], [address]. tel:[phone] [facility] .[facility] [address] [place] [address], [id number], [place] tel:[phone] [facility], .[facility] No Information 2 [facility]. [facility] [address], [address], [address]. tel:[phone] Referring Provider: Shikha Grimm, [address] [place] [address] [address], [place], [address]. tel:[phone] CHRON CARE MGMT SRVC 20 MIN [facility] .[facility], [facility] [address], [id number], [place] tel:[phone] [facility] .[facility]. No Information 2 [facility]. [address], [facility] 100, [place], [address]. tel:[phone] Referring Provider: Shikha Grimm, [address] [place] [address] [address], [address]. tel:[phone] Office Visit Level IV [facility] [address] [place] [address], [id number], [place] tel:[phone] [facility] .[facility] Follow Up of Fibromyalgia Syndrome (chief complaint)Rhe umatoid Arthritis (chief complaint) Immunosuppre ssionSeropos itive Rheumatoid ArthritisFib romyalgiaBod y mass index (BMI) 39.0-39.9, adultMethotr exate, custodial, current use 2 [facility]. [facility] [address], [place] [address], [place], [address]. tel:[phone] Primary Practice Provider: Abhishek Griggs, [address] [place] [address] [address] [facility], [place], [address]. tel:[phone] erring Provider: Shikha Grimm, [address] [place] [address] [address], [place], [address]. tel:[phone] [facility] .[facility] [address] [place] [address], [id number], [place] tel:[phone] [facility], .[facility]. No Information 1 [facility]. [address], [address] [place], [address]. tel:[phone] Referring Provider: [facility]imm [facility] [address], [place], [address]. tel:[phone] Office Visit Level IV [facility]., [address] [facility] [facility], [place], [place], [id number], [place] tel:[phone] [facility].. Follow Up of Fibromyalgia Syndrome (chief complaint)Rhe umatoid Arthritis (chief complaint) Immunosuppre ssionSeropos itive Rheumatoid ArthritisFib romyalgiaBod y mass index (BMI) 40.0-44.9, adultMethotr exate, custodial, current useBody mass index (BMI) 39.0-39.9, adultOther fatigue Jan- 1 [facility]. [address], [address], [address]. tel:[phone] Referring Provider: Shikha Grimm [address] [place] [address] [address], [address]. tel:[phone] [facility]., [address] [address], [place], [place], [id number], [place] tel:[phone] [facility].S.. No Information 1 [facility]. [address], [place] [address], [place], [address]. tel:[phone] Referring Provider: Shikha Grimm [address] [place] [address] [address], [address]. tel:[phone] [facility], [address] [address], [place], [place], [id number], [place] tel:[phone] [facility].S.. No Information 1 [facility]. [address], [address], [address]. tel:[phone] Referring Provider: Shikha Sirisha, [address], [place], [address]. tel:[phone] [facility]., [address] [facility], [place], [place], [id number], [place] tel:[phone] [facility].S.. No Information 1 Vanna Russell. [address], [facility] 100, [place], [address]. tel:[phone] Referring Provider: Shikha Grimm, [address], [place], [address]. tel:[phone] [facility]., [address], [id number], [place] tel:[phone] [facility].. Follow Up of Fibromyalgia Syndrome (chief complaint)Rhe umatoid Arthritis (chief complaint) Immunosuppre ssionSeropos itive Rheumatoid ArthritisFib romyalgiaBod y mass index (BMI) 40.0-44.9, adultMethotr exate, custodial, current use 1 Vanna Wells. [address], [facility] 100, [place], [address]. tel:[phone] Office Visit Level IV [facility]., [address] [address], [place], [place], [id number], [place] tel:[phone] [facility].. No Information 1 Shira Sloan. [address], [address], [place], [place], [id number]. tel:[phone] Referring Provider: Shikha Grimm, [address], [place], [address]. tel:[phone] [facility].S., [address] [place] [address], [id number], [place] tel:[phone] [facility] Follow Up of Fibromyalgia Syndrome (chief complaint)Rhe umatoid Arthritis (chief complaint) Immunosuppre ssionSeropos itive Rheumatoid ArthritisFib romyalgiaFat igueBody mass index (BMI) 40.0-44.9, adultMethotr exate, custodial, current use 1 [facility]. [address], [address], [place], [address]. tel:[phone] Office Visit Level IV [facility] [address] [place], [place] [address] [address] [place] [address], [id number], [place] tel:[phone] [facility] .[facility] Follow Up of Fibromyalgia Syndrome (chief complaint)Rhe umatoid Arthritis (chief complaint) Immunosuppre ssionSeropos itive Rheumatoid ArthritisFib romyalgiaFat igueMethotre xate, custodial, current useBody mass index (BMI) 40.0-44.9, adult May- 1 [facility]. [address], [address], [place], [address]. tel:[phone] Primary Practice Provider: Abhishek Griggs, [address] [place] [address] [address] [facility], [place], [address]. tel:[phone] erring Provider: Shikha Grimm, [address] [place] [address] [address], [address]. tel:[phone] [facility] [address] [place] [address], [id number], tel:[phone] [facility], .[facility]. No Information 0 [facility]. [address], [facility] 100[place], [place], [address]. tel:[phone] Referring Provider: Shikha Grimm, [address] [place] [address] [address], [address]. tel:[phone] [facility] [address], [id number], [place] tel:[phone] [facility] .[facility] Follow Up of Fibromyalgia Syndrome (chief complaint)Rhe umatoid Arthritis (chief complaint) Immunosuppre ssionSeropos itive Rheumatoid ArthritisFib romyalgiaFat igueBody mass index (BMI) 45.0-49.9, adultMethotr exate, ad terminal makeup operator, current useBody mass index (BMI) 40.0-44.9, adult 0 Amador Carrillo. [address] [place] [address], [id number], [place]. tel:[phone] Office Visit Level IV [facility] .[facility], [address] [place] [address], [id number], tel:[phone] [facility]. No Information 0 [facility]. [address] [place] [address], [address]. tel:[phone] Referring Provider: Shikha Grimm [address] [place] [address] [address], [place], [address]. tel:[phone] [facility], .[facility]., [address] [place] [address], [id number], [place] tel:[phone] [facility], .[facility]. No Information 0 [facility]. [address] [place] [address], [address]. tel:[phone] Referring Provider: Shikha Grimm, [address] [place] [address] [address], [place], [address]. tel:[phone] [facility] .[facility]., [address] [place] [address], [id number], [place] tel:[phone] [facility] .[facility] Follow Up of Fibromyalgia Syndrome (chief complaint)Rhe umatoid Arthritis (chief complaint) Immunosuppre ssionSeropos itive Rheumatoid ArthritisFib romyalgiaFat igueBody mass index (BMI) 45.0-49.9, adultMethotr exate, ad terminal makeup operator, current use Aug- 0 Amador Carrillo. [address] [place] [address], [id number], . tel:[phone] Office Visit Level IV [facility], [address] [place] [address], [id number], tel:[phone] [facility] No Information 0 Dardanelle Russell. [address] [place] [address], [address]. tel:[phone] Referring Provider: Shikha Grimm [address] [place] [address] [address] [place] [address], [address]. tel:[phone] [facility], [address] [place] [address], [id number], tel:[phone] [facility]. No Information 0 [facility]. [address] [place] [address], [address]. tel:[phone] Referring Provider: Shikha Grimm [address] [place] [address] [address], [place], [address]. tel:[phone] [facility]., [address] [place] [address], [id number], tel:[phone] [facility]. No Information 0 [facility]. [address] [place] [address], [address]. tel:[phone] Referring Provider: Shikha Grimm [address] [place] [address] [address], [place], [address]. tel:[phone] Office Visit Level IV [facility] [address] [place], [place] [address]e [address] [place] [address], [id number], [place] tel:[phone] [facility] Follow Up of Fibromyalgia Syndrome (chief complaint)Rhe umatoid Arthritis (chief complaint) Immunosuppre ssionSeropos itive Rheumatoid ArthritisFib romyalgiaMet hotrexate, ad terminal makeup operator, current useBody mass index (BMI) 45.0-49.9, adultFatigue 9 [facility]. [address], [address], [place], [address]. tel:[phone] Primary Practice Provider: Abhishek Griggs, [address] [place] [address] [facility], [place], [address]. tel:[phone] erring Provider: Shikha Grimm [address] [place] [address] [address], [place], [address]. tel:[phone] Office Visit Level IV [facility] [address] [place] [address], [id number], [place] tel:[phone] [facility] .[facility] Follow Up of Fibromyalgia Syndrome (chief complaint)Rhe umatoid Arthritis (chief complaint) Immunosuppre ssionSeropos itive Rheumatoid ArthritisFib romyalgiaBod y mass index (BMI) 40.0-44.9, adultMethotr exate, custodial, current use 9 [facility]. [address], [facility] 100, [place], [address]. tel:[phone] Primary Practice Provider: Abhishek Griggs, [address] [place] [address] [facility], [place], [address]. tel:[phone] erring Provider: Shikha Grimm, [address] [place] [address] [address], [place], [address]. tel:[phone] Office Visit Level IV [facility]., [address], [id number], [place] tel:[phone] [facility] Follow Up of Fibromyalgia Syndrome (chief complaint)Rhe umatoid Arthritis (chief complaint) Immunosuppre ssionSeropos itive Rheumatoid ArthritisFib romyalgiaBod y mass index (BMI) 40.0-44.9, adultMethotr exate, ad terminal makeup operator, current use Apr- 2201 9 [facility]. 330 [facility], [facility] 100[place], [place], [address]. tel:[phone] Primary Practice Provider: Abhishek Griggs, [address] [place] [address] [address] [facility], [place], [address]. tel:[phone] erring Provider: Shikha Grimm [address] [place] [address] [address], [place], [address]. tel:[phone] Office Visit Level IV [facility] [address] [place] [address], [id number], tel:[phone] [facility], .[facility] Follow Up of Fibromyalgia Syndrome (chief complaint)Rhe umatoid Arthritis (chief complaint) Immunosuppre ssionSeropos itive Rheumatoid ArthritisFib romyalgiaMet hotrexate, custodial, current useBody mass index (BMI) 40.0-44.9, adult Dec- 9-201 8 [facility]. 330 [facility], [facility] 100[place], [place], [address]. tel:[phone] Primary Practice Provider: Abhishek Griggs [address] [place] [address] Internal [facility] [facility], [place], [address]. tel:[phone] erring Provider: Shikha Grimm [address] [place] [address] [address], [place], [address]. tel:[phone] Office Visit Level IV [facility] [address] [place] [address], [id number], [place] tel:[phone] [facility] Follow Up of Fibromyalgia Syndrome (chief complaint)Rhe umatoid Arthritis (chief complaint) Seropositive Rheumatoid ArthritisFib romyalgiaBod y mass index (BMI) 45.0-49.9, adultMethotr exate, custodial, current useImmunosup pression 8 [facility]. [address], [address], [place], [address]. tel:[phone] Primary Practice Provider: Abhishek Griggs, [address] [place] [address] [address] [facility], [place], [address]. tel:[phone] erring Provider: Shikha Grimm, [address] [place], [place] [address]y [address], [place], [address]. tel:[phone] Office Visit Level I [facility] [address] [place] [address], [id number], [place] tel:[phone] [facility], .[facility] Seropositive Rheumatoid Arthritis [facility]. [facility] [address], [address], [address]. tel:[phone] Referring Provider: Shikha Grimm, [address] [place] [address] [address], [place], [address]. tel:[phone] [facility] [address] [place] [address], [id number], [place] tel:[phone] [facility] .[facility] No Information 8 [facility]. [facility] [address], [facility] [address], [place], [address]. tel:[phone] Referring Provider: Shikha Grimm, [address] [place] [address] [address], [place], [address]. tel:[phone] Office Visit Level IV [facility] [address] [place] [address], [id number], [place] tel:[phone] [facility] .[facility] Follow Up of Fibromyalgia Syndrome (chief complaint)Rhe umatoid Arthritis (chief complaint) Seropositive Rheumatoid ArthritisFib romyalgiaBod y mass index (BMI) 45.0-49.9, adultCurrent Use of Steroid MedicationMe thotrexate, custodial, current useFatigue 8 [facility]. [address] [place] [address], [address]. tel:[phone] Primary Practice Provider: Abhishek Griggs, [address] [place] [address] [place], [address]. tel:[phone] erring Provider: Shikha Grimm, [address] [place] [address] [address] [facility] [place], [place], [address]. tel:[phone] Office Visit Level IV [facility], [address] [place] [address], [id number], tel:[phone] [facility] Fibromyalgia Syndrome (chief complaint)Rhe umatoid Arthritis (chief complaint) Seropositive Rheumatoid ArthritisFib romyalgiaCur rent Use of Steroid MedicationMe thotrexate, ad terminal makeup operator, current useBody mass index (BMI) 45.0-49.9, adult 7 [facility]. [address] [place] [address], [address]. tel:[phone] Primary Practice Provider: Abhishek Griggs, [address] [place] [address] [place], [address]. tel:[phone] erring Provider: Shikha Grimm, [address] [place] [address] [address] [place] [address], [address]. tel:[phone] Office Visit Level IV [facility], [address] [place] [address], [id number], [place] tel:[phone] [facility] Fibromyalgia Syndrome (chief complaint)Rhe umatoid Arthritis (chief complaint) Seropositive Rheumatoid ArthritisFib romyalgiaMet hotrexate, ad terminal makeup operator, current useCurrent Use of Steroid Medication 7 [facility]. [address], [address], [place], [address]. tel:[phone] Primary Practice Provider: Abhishek Griggs, [address] [place] [address] E [facility], [place], [address]. tel:[phone] erring Provider: Shikha Grimm, [address] [place] [address] [address], [place], [address]. tel:[phone] New Office Visit Level IV [facility] [address] [place] [address], [id number], [place] tel:[phone] [facility]. Joint Pain (chief complaint) Rheumatoid Factor PositiveArth ralgiaFatigu e [facility]. [address], [address], [address]. tel:[phone] Primary Practice Provider: Abhishek Griggs, [address] [place] [address] E [facility], [place], [address]. tel:[phone] erring Provider: Shikha Grimm, [address] [place] [address] [address], [place], [address]. tel:[phone] [facility] [address] [place] [address], [id number], [place] tel:[phone] [facility] No Information 7 [facility]. [address], [facility] [address], [place], [address]. tel:[phone] Referring Provider: Shikha Grimm [address] [place] [address] [address], [place], [address]. tel:[phone] Family History Family Member Type Diagnosis Age At Onset Mother Problem (finding) Diabetes mellitus Mother Problem (finding) Arthritis Problem (finding) Family history of hyper tension Immunizations Vaccine Date Status Comments Flu (split) (3 yrs or older) administered Source: Other Provider Flu (split) (3 yrs or older) administered Note: aprox date ; Source: Public Agency Payers Payer name Insurance type Covered constitution party ID Samira justin(s) [facility] [id number] Medicare [id number] Social History Type Description Quantity Date Captured Comments Alcohol Use Details Caffeine Use Details Unknown Tobacco Use Status Current non-smoker Smoking Status Never smoker Sex Female Vital Signs Date / Time: Height Weight BMI Pulse Rate Blood Pressure Temperature Respiratory Rate Body Surface Area Head Circumference Head Circ. Percentile Wt./Edson. Percentile BMI percentile Pulse Ox Inhaled Ox 10:58 AM 68.00 in 110.858 kg (244.40 lbs) 37.1 6 kg/m eter (2) 80 /min 126/78 mm[Hg] 97.90 F Chief Complaint And Reason For Visit From encounter dated '06/02/2023 10:45'. Follow Up of Fibromyalgia Syndrome (chief complaint) Rheumatoid Arthritis (chief complaint) Reason For Referral Reason For Referral No [...] completed Appointment Andreina Samano BOOKED Patient Education Hip Pain: Care Instruct ions completed Patient Education Neck Arthritis: Exercis es completed [...] Care Instru completed Future Order: Lab Order CBC With Differential/Platelet (944020), Ordered on: Ordered Future Order: Lab Order Comp. Me tabolic Panel (14) ([id number]), Ordered on: Ordered Future Order: Lab Order C-Reacti ve Protein, Quant ([id number]), Ordered on: Ordered Future Order: Lab Order Sediment ation Rate-Westergren (454316), Ordered on: Ordered Future Order: Lab Order Acute He patitis Panel (368504), Ordered on: Ordered Future Order: Lab Order CBC With Differential/Platelet (564978), Ordered on: Ordered Future Order: Lab Order C-Reacti ve Protein, Quant (773396), Ordered on: Ordered Future Order: Lab Order Comp. Me tabolic Panel (14) (234446), Ordered on: Ordered Future Order: Lab Order QuantiFE GÓMEZ TB Gold Plus(in Tube) (859098), Ordered on: Ordered Future Order: Lab Order Sediment ation Rate-Westergren (679823), Ordered on: Ordered Future Order: Lab Order CBC With Differential/Platelet (852966), Ordered on: Ordered Future Order: Lab Order Comp. Me tabolic Panel (14) (876867), Ordered on: Ordered Future Order: Lab Order C-Reacti ve Protein, Quant (552061), Ordered on: Ordered Future Order: Lab Order Sediment ation Rate-Westergren (801759), Ordered on: Ordered Future Order: Lab Order QuantiFE GÓMEZ TB Gold Plus(in Tube) (436454), Ordered on: Ordered Future Order: Lab Order CBC With Differential/Platelet (378304), Ordered on: Ordered Future Order: Lab Order Comp. Me tabolic Panel (14) (447697), Ordered on: Ordered Future Order: Lab Order C-Reacti ve Protein, Quant (896339), Ordered on: Ordered Future Order: Lab Order Sediment ation Rate-Westergren (366977), Ordered on: Ordered Future Order: Lab Order Hepatiti s Panel (4) (442626), Ordered on: Ordered Future Order: Lab Order CBC With Differential/Platelet (073157), Ordered on: Ordered Future Order: Lab Order Comp. Me tabolic Panel (14) (941997), Ordered on: Ordered Future Order: Lab Order C-Reacti ve Protein, Quant (778098), Ordered on: Ordered Future Order: Lab Order Sediment ation Rate-Westergren (170774), Ordered on: Ordered Future Order: Lab Order Hepatiti s Panel (4) (155698), Ordered on: Ordered Future Order: Lab Order CBC With Differential/Platelet (501478), Ordered on: Ordered Future Order: Lab Order Comp. Me tabolic Panel (14) (580064), Ordered on: Ordered Future Order: Lab Order C-Reacti ve Protein, Quant (618980), Ordered on: Ordered Future Order: Lab Order Sediment ation Rate-Westergren (217594), Ordered on: Ordered Future Order: Lab Order CBC With Differential/Platelet (304728), Ordered on: Ordered Future Order: Lab Order Comp. Me tabolic Panel (14) (444291), Ordered on: Ordered Future Order: Lab Order C-Reacti ve Protein, Quant (060481), Ordered on: Ordered Future Order: Lab Order Sediment ation Rate-Westergren (277515), Ordered on: Ordered Future Order: Lab Order Hepatiti s Panel (4) (075386), Ordered on: Ordered Future Order: Lab Order Quanti FERON - TB Gold IT Plus (Theratest) (TBGP), Ordered on: Ordered Future Order: Lab Order CBC With Differential/Platelet (412946), Ordered on: Ordered Future Order: Lab Order C-Reacti ve Protein, Quant (143591), Ordered on: Ordered Future Order: Lab Order Comp. Pa tabolic Panel (14) (550258), Ordered on: Ordered Future Order: Lab Order Sediment ation Rate-Westergren (955326), Ordered on: Ordered Future Order: Lab Order CBC With Differential/Platelet (486604), Ordered on: Ordered Future Order: Lab Order Comp. Me tabolic Panel (14) (832144), Ordered on: Ordered Future Order: Lab Order C-Reacti ve Protein, Quant (277087), Ordered on: Ordered Future Order: Lab Order Sediment ation Rate-Westergren (213841), Ordered on: Ordered Future Order: Lab Order Hepatiti s Panel (4) (035912), Ordered on: Ordered Future Order: Lab Order QuantiFE GÓMEZ TB Gold (In Tube) (683574), Ordered on: Ordered Future Order: Lab Order CBC With Differential/Platelet (585254), Ordered on: Ordered Future Order: Lab Order Comp. Pa tabolic Panel (14) (200221), Ordered on: Ordered Future Order: Lab Order C-Reacti ve Protein, Quant (879568), Ordered on: Ordered Future Order: Lab Order Sediment ation Rate-Westergren (641810), Ordered on: Ordered Future Order: Lab Order CBC With Differential/Platelet (672832), Ordered on: Ordered Future Order: Lab Order Comp. Pa tabolic Panel (14) (231612), Ordered on: Ordered Future Order: Lab Order C-Reacti ve Protein, Quant (946619), Ordered on: Ordered Future Order: Lab Order Sediment ation Rate-Westergren (445618), Ordered on: Ordered Future Order: Lab Order Hepatiti s Panel (4) (015727), Ordered on: Ordered Future Order: Lab Order Quanti FERON - TB Gold IT Plus (Theratest) (TBGP), Ordered on: Ordered Future Order: Lab Order CBC With Differential/Platelet (474944), Ordered on: Ordered Future Order: Lab Order Comp. Me tabolic Panel (14) (718578), Ordered on: Ordered Future Order: Lab Order C-Reacti ve Protein, Quant (793794), Ordered on: Ordered Future Order: Lab Order Sediment ation Rate-Westergren (932985), Ordered on: Ordered Future Order: Lab Order CBC With Differential/Platelet (291892), Ordered on: Ordered Future Order: Lab Order Comp. Me tabolic Panel (14) (107295), Ordered on: Ordered Future Order: Lab Order C-Reacti ve Protein, Quant (908266), Ordered on: Ordered Future Order: Lab Order Sediment ation Rate-Westergren (322672), Ordered on: Ordered Future Order: Radiology Order Ch est X-ray, AP/Lat (2 Views) (34843), Ordered on: Ordered Future Order: Lab Order CBC With Differential/Platelet (135944), Ordered on: Ordered Future Order: Lab Order Comp. Me tabolic Panel (14) (693136), Ordered on: Ordered Future Order: Lab Order Hepatiti s Panel (4) (366973), Ordered on: Ordered Future Order: Lab Order C-Reacti ve Protein, Quant (118244), Ordered on: Ordered Future Order: Lab Order Sediment ation Rate-Westergren (470218), Ordered on: Ordered Future Order: Lab Order Quanti FERON - TB Gold IT Plus (Theratest) (TBGP), Ordered on: Ordered Future Order: Lab Order C-Reacti ve Protein, Quant (491432), Ordered on: Ordered Future Order: Lab Order CBC With Differential/Platelet (859129), Ordered on: Ordered Future Order: Lab Order Comp. Pa tabolic Panel (14) (258200), Ordered on: Ordered Future Order: Lab Order Sediment ation Rate-Westergren (427007), Ordered on: Ordered Future Order: Lab Order CBC With Differential/Platelet (504986), Ordered on: Ordered Future Order: Lab Order Comp. Pa tabolic Panel (14) (564235), Ordered on: Ordered Future Order: Lab Order C-Reacti ve Protein, Quant (704212), Ordered on: Ordered Future Order: Lab Order Sediment ation Rate-Westergren (713139), Ordered on: Ordered Future Order: Lab Order CBC With Differential/Platelet (224533), Ordered on: Ordered Future Order: Lab Order Comp. Pa tabolic Panel (14) (942108), Ordered on: Ordered Future Order: Lab Order C-Reacti ve Protein, Quant (499038), Ordered on: Ordered Future Order: Lab Order Sediment ation Rate-Westergren (970392), Ordered on: Ordered Future Order: Radiology Order Ch est X-ray, AP/Lat (2 Views) (25228), Ordered on: Ordered Future Order: Lab Order CBC With Differential/Platelet (220791), Ordered on: Ordered Future Order: Lab Order Comp. Pa tabolic Panel (14) (227719), Ordered on: Ordered Future Order: Lab Order C-Reacti ve Protein, Quant (067584), Ordered on: Ordered Future Order: Lab Order Sediment ation Rate-Westergren (406853), Ordered on: Ordered Future Order: Lab Order Hepatiti s Panel (4) (186725), Ordered on: Ordered Future Order: Lab Order QuantiFE GÓMEZ- TB Gold IT (Theratest) (TBQ), Ordered on: Ordered Future Order: Lab Order CBC With Differential/Platelet (999889), Ordered on: Ordered Future Order: Lab Order Comp. Me tabolic Panel (14) (498291), Ordered on: Ordered Future Order: Lab Order C-Reacti ve Protein, Quant (560371), Ordered on: Ordered Future Order: Lab Order Sediment ation Rate-Westergren (840523), Ordered on: Ordered Future Order: Lab Order C-Reacti ve Protein, Quant (085580), Ordered on: Ordered Future Order: Lab Order Sediment ation Rate-Westergren (904788), Ordered on: Ordered Future Order: Lab Order CBC With Differential/Platelet (595314), Ordered on: Ordered Future Order: Lab Order Comp. Pa tabolic Panel (14) (311003), Ordered on: Ordered Future Order: Lab Order CBC With Differential/Platelet (224392), Ordered on: Ordered Future Order: Lab Order Comp. Me tabolic Panel (14) (849993), Ordered on: Ordered Future Order: Lab Order Cyclic C itrullinated Peptide-4P (CCP4P), Ordered on: Ordered Future Order: Lab Order EL-NADEEM/9 HIEU Sulema Method IgG ([id number]), Ordered on: Ordered Future Order: Lab Order Rheumato id Factor/3 IgM, IgG, IgA (RF3), Ordered on: Ordered Future Order: Radiology Order Ch est X-ray; AP/Lat (2 views) (52217), Ordered on: Ordered Future Order: Radiology Order Gray nd X-ray; Limited (2 views) (71050), Ordered on: Ordered Future Order: Radiology Order Fo ot X-ray; Complete (3+ views) (86767), Ordered on: Ordered Future Order: Lab Order Antinucl ear Antibodies, NADEEM, IFA (399489), Ordered on: Ordered Future Order: Lab Order CBC With Differential/Platelet (310635), Ordered on: Ordered Future Order: Lab Order Comp. Me tabolic Panel (14) (063363), Ordered on: Ordered Future Order: Lab Order C-Reacti ve Protein, Quant (184687), Ordered on: Ordered Future Order: Lab Order Creatine Kinase,Total,Serum (592978), Ordered on: Ordered Future Order: Lab Order Hepatiti s Panel (4) (302130), Ordered on: Ordered Future Order: Lab Order Sediment ation Rate-Westergren (306671), Ordered on: Ordered Future Order: Lab Order Uric Aci d, Serum (919867), Ordered on: Ordered History Of Present Illness [...] Pain Functional Status Date Functional Assessmen t Pain Score 5/10 Medications Administered Medication Instructions Dosage Effective Dates (start - stop) Status Comments Arava 20 mg tablet TAKE 1 TABLET DAILY Ja - No Longer Active Instructions Date Instruction Additional Infor heidi 1. Hold if the patie nt develops infection. 2. Avoid live vaccines while on this medication. 3. No recent serious infections4. No injection site reactions. 5. Also hold this medication perioperatively if the patient is going to have a surgical procedure Related to Immune deficiency due to current drug 1. Continue Arava. 2 . Check labs every 8-12 weeks for medication toxicity monitoring3. She seems well today. 4. Follow up in 3-4 months5. Continue/refill Enbrel 6. We gave her a handout on hip pain to take home an review Related to Seropositive Rheumatoid Arthritis 1. H [...] pain 11. She has taken/tried hydrocodone/APAP PRN 12. She has done some physical therapy Related to Fibromyalgia 1. CBC and CMP every 8-12 weeks to monitor for medication toxicity. 2. No recent serious infections.3. Refill today Related to High Risk Medication Use Lifestyle education regarding di et Related to Body mass index [BMI] 37.0-37.9, adult 1. Continue Arava. 2 . Check labs every 8-12 weeks for medication toxicity monitoring3. She seems well today. 4. Follow up in 3-4 months5. She is now on Enbrel and is feeling better.6. We gave her a handout on neck arthritis to take home an review Related to Seropositive Rheumatoid Arthritis 1. H [...] taken/tried hydrocodone/APAP PRN Related to Fibromyalgia 1. Hold if the patie nt develops infection. 2. Avoid live vaccines while on this medication. 3. No recent serious infections4. No injection site reactions. 5. Also hold this medication perioperatively if the patient is going to have a surgical procedure Related to Immune deficiency due to current drug 1. CBC and CMP every 8-12 weeks to monitor for medication toxicity. 2. No recent serious infections.3. Refill today Related to High Risk Medication Use With next lab draw w e will recheck/update the patient's TB and hepatitis status Related to Other fatigue Lifestyle education regarding di et Related to Body mass index [BMI] 37.0-37.9, adult 1. Hold if the patie nt [...] to Fibromyalgia 1. Continue Arava. 2 . Inflectra was stopped when patient assistance was no longer available.3. Check labs every 8-12 weeks for medication toxicity monitoring4. Stopped mtx 12/10 per pt request. 5. She seems well today. 6. Follow up in 3-4 months7. She is now on Enbrel and is feeling better. Related to Seropositive Rheumatoid Arthritis 1) Hold with infecti ons2) Hold 2 weeks pre and post op for surgeries3) Labs every 8-12 weeks. Related to High Risk Medication Use Update Q Related to Other fatigue 1) [...] with next labs. Related to Fatigue 1. Patient to take 0 .3mL methotrexate [...] Arava. Related to Seropositive Rheumatoid Arthritis 1. H [...] has taken/tried hydrocodone/APAP PRN Related to Fibromyalgia Stop due to patient request.She will take 0.3 mL next week and then stop. Related to Methotrexate, ad terminal makeup operator, current use 1. Hold if the patie [...] and hepatitis status Related to Fatigue 1. Hold if the patie nt develops infection. 2. Avoid live vaccines while on this medication. 3. No recent serious infections4. No infusion reactions 5. Also hold this medication perioperatively if the patient is going to have a surgical procedure Related to Immunosuppression 1. CBC and CMP every 8-12 weeks to monitor for medication toxicity. 2. Take folate supplements daily.3. No recent serious infections.4. Refill today5. At higher doses she has had elevated LFTS Related to Methotrexate, custodial, current use 1. Continue/refill M TX & [...] has taken/tried hydrocodone/APAP PRN Related to Fibromyalgia Lifestyle education regarding di et Related to Body mass index [BMI] 40.0-44.9, adult 1. CBC and CMP every 8-12 weeks to monitor for medication toxicity. 2. Take folate supplements daily.3. No recent serious infections.4. Refill today5. At higher doses she has had elevated LFTS Related to Methotrexate, custodial, current use 1. Hold if the patie [...] dose of IV I nflectra was today, 9/23/21.2. MTX was held from 04/28/20 until 08/2020 [...] and cramping. Related to Seropositive Rheumatoid Arthritis Change mtx to inject able. She does not tolerate the pills well due to SE. Related to Methotrexate, ad terminal makeup operator, current use 1. H & P consistent [...] stopped ibuprofen thinking it was hurting her [id number]. She is on an SSRI. Treating anxiety/depression can help improve myofascial pain 11. She is on hydrocodone/APAP PRN Related to Fibromyalgia 1. Labs every 8-12 w eeks.2. No recent infections.3. Medicines to be held preoperatively and postoperatively in event of surgery.4. She has completed the Moderna Covid-19 vaccine. Related to Immunosuppression Lifestyle education regarding di et Related to Body mass index [BMI] 39.0-39.9, adult restarted 08/2020 Related to Meth otrexate, ad terminal makeup operator, current use 1. H & P consistent [...] stopped ibuprofen thinking it was hurting her [id number]. She is on an SSRI. Treating anxiety/depression can help improve myofascial pain 11. She is on hydrocodone/APAP PRN Related to Fibromyalgia 1. Last dose of IV I nflectra [...] Cleared to restartawaiting meds Related to Immunosuppression Her last dose as . 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 Last dose of IV I nflectra [...] 3-4 months Related to Seropositive Rheumatoid Arthritis With next lab draw w e will recheck/update the patient's TB and hepatitis status Related to Fatigue This has been held s wilfredo 04/28/20 because her PCP diagnosed her with RMSF Related to Methotrexate, custodial, current use 1. H & P consistent [...] stopped ibuprofen thinking it was hurting her [id number]. She is on an SSRI. Treating anxiety/depression can help improve myofascial pain 11. She is on hydrocodone/APAP PRN Related to Fibromyalgia With next lab draw w e will recheck/update the patient's TB and hepatitis status Related to Fatigue This has been held s wilfredo 04/28/20 because her PCP diagnosed her with RMSF Related to Methotrexate, ad terminal makeup operator, current use 1. Last dose of IV [...] stopped ibuprofen thinking it was hurting her [id number]. She is on an SSRI. Treating anxiety/depression can help improve myofascial pain 11. She is on hydrocodone/APAP PRN Related to Fibromyalgia Her last dose as . 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 Related to Immunosuppression 1. She thinks Inflec tra is working now. 2. She no longer takes steroids due to her diabetes. 3. Continue MTX/folic acid 4. She is seeing podiatry 5. Follow up in 3-4 months. 6. Refill medicine. 7. She will receive Infletra today.8. Prognosis is fair. Related to Seropositive Rheumatoid Arthritis ImprovedTB updated 05/2019 Relate d to Fatigue 1. CBC and CMP every 8-12 weeks to monitor for toxicity. 2. Take folate supplements daily.3. No recent serious infections.4. 08/26/2019 labs were fine. 5. Standing lab order was renewed & given to the patient. Related to Methotrexate, custodial, current use 1. H & P consistent [...] stopped ibuprofen thinking it was hurting her [id number]. She is on an SSRI. Treating anxiety/depression can help improve myofascial pain 11. She is on hydrocodone/APAP PRN Related to Fibromyalgia Lifestyle education regarding di et Related to Body mass index (BMI) 40.0-44.9, adult 1. She is unsure of Inflectra is helping.2. She no longer takes steroids due to her diabetes. 3. Continue MTX/folic acid 4. She is seeing podiatry 5. Follow up in 3-4 months. 6. Refill medicine. 7. She received last loading dose of Inflectra today.8. Prognosis is fair. Related to Seropositive Rheumatoid Arthritis 1. H [...] stopped ibuprofen thinking it was hurting her [id number]. She is on an SSRI. Treating anxiety/depression can help improve myofascial pain 11. She is on hydrocodone/APAP PRN Related to Fibromyalgia Improved Related to Fatig ue 1. CBC and CMP every 8-12 weeks to monitor for toxicity. 2. Take folate supplements daily.3. No recent serious infections.4. 05/13/19 labs were fine. 5. Standing lab order was renewed & given to the patient. Related to Methotrexate, ad terminal makeup operator, current use Check TB status, hep atitis panel, and CXR Related to Fatigue 1. She feels like he r condition [...] fair. Related to Seropositive Rheumatoid Arthritis 1. H [...] stopped ibuprofen thinking it was hurting her [id number]. She is on an SSRI. Treating anxiety/depression can help improve myofascial pain 11. She is on hydrocodone/APAP PRN Related to Fibromyalgia 1. CBC and CMP every 8-12 weeks to monitor for toxicity. 2. Take folate supplements daily.3. No recent serious infections.4. 03/18/2019 labs were fine. 5. Standing lab order was renewed & given to the patient. Related to Methotrexate, ad terminal makeup operator, current use Stop Humira per patient's reques t. Related to Immunosuppression Lifestyle education regarding di et Related to Body mass index (BMI) 45.0-49.9, adult 1. Hold if the patie nt develops infection. 2. Avoid live vaccines while on this medication. 3. No recent serious infections4. No injection site reactions. 5. Also hold this medication perioperatively if the patient is going to have a surgical procedure. Related to Immunosuppression 1. She seems stable today. 2. She no longer takes steroids due to her diabetes. 3. Continue MTX/folic acid & Humira. 4. She is seeing podiatry 5. Follow up in 3-4 months. 6. Refill medicine. 7. Check labs prior to next visit. 8. Prognosis is fair. Related to Seropositive Rheumatoid Arthritis 1. H [...] stopped ibuprofen thinking it was hurting her [id number]. She is on an SSRI. Treating anxiety/depression can help improve myofascial pain 11. She is on hydrocodone/APAP PRN Related to Fibromyalgia 1. CBC and CMP every 8-12 weeks to monitor for toxicity. 2. Take folate supplements daily.3. No recent serious infections.4. 12/19/2018 labs were fine. 5. Standing lab order was renewed & given to the patient. Related to Methotrexate, ad terminal makeup operator, current use 1. Hold if the patie [...] stopped ibuprofen thinking it was hurting her [id number]. She is on an SSRI. Treating anxiety/depression can help improve myofascial pain 11. She is on hydrocodone/APAP PRN Related to Fibromyalgia 1. CBC and CMP every 8-12 weeks to monitor for toxicity. 2. Take folate supplements daily.3. No recent serious infections.4. 08/15/2018 labs were fine. Related to Methotrexate, ad terminal makeup operator, current use 1. She seems stable today. She is [...] 03/20/2018 labs were fine. Related to Methotrexate, custodial, current use 1. Hold if the patie nt develops infection. 2. Avoid live vaccines while on this medication. 3. No recent serious infections4. No injection site reactions. 5. Also hold this medication perioperatively if the patient is going to have a surgical procedure. Related to Immunosuppression 1. She is preparing to have left [...] labs Related to Seropositive Rheumatoid Arthritis 1. H [...] on hydrocodone/APAP PRN Related to Fibromyalgia Dietary needs education Related to Body mass index (BMI) 40.0-44.9, adult 1. Hold if the patie nt develops infection. 2. Avoid live vaccines while on this medication. 3. No recent serious infections4. No injection site reactions. 5. Also hold this medication perioperatively if the patient is going to have a surgical procedure. Related to Immunosuppression 1. Continue MTX/foli c acid.2. She no [...] 09/12/2017 labs were fine. Related to Methotrexate, ad terminal makeup operator, current use 1. H & P consistent [...] stopped ibuprofen thinking it was hurting her [id number]. She is on an SSRI. Treating anxiety/depression [...] 08/08/2017 labs were fine. Related to Methotrexate, custodial, current use 1. Continue MTX/foli c acid.2. She no longer takes steroids due to her diabetes. 3. She is still having pain/swelling. 4. I am going to try and get her approved for Humira. Risks and benefits reviewed. 5. Follow up in 3-4 months. Related to Seropositive Rheumatoid Arthritis Check TB status, hep atitis panel, and CXR. Related to Fatigue 1. Continue MTX/foli c acid. Increase dose [...] 20 mg/week. See above. Related to Methotrexate, custodial, current use 1. H & P consistent [...] stopped ibuprofen thinking it was hurting her [id number]. She is on an SSRI. Treating anxiety/depression can help improve myofascial pain 11. She is on hydrocodone/APAP PRN Related to Fibromyalgia We are going to try and taper her off of this. She says it is making her diabetes more difficult to control. Related to Current Use of Steroid Medication Dietary management e ducation, guidance, and counseling Related to Body mass index (BMI) 45.0-49.9, adult 1. CBC and CMP every 8-12 weeks to monitor for toxicity. 2. Take folate supplements daily.3. No recent serious infections. Related to Methotrexate, custodial, current use 1. H & P consistent [...] stopped ibuprofen thinking it was hurting her [id number]. She is on an SSRI. Treating anxiety/depression [...] Rheumatoid Factor Positive Assessments Type Assessment Date assessment Immune deficiency due to current drug impression * Enbrel 50 mg SQ injection once /week for RA assessment Seropositive Rheumatoid Arthriti s impression * Medications/treatm ents/interventions tried include: Ibuprofen, Baclofen, gabapentin, Citalopram, hydrocodone/APAP, PT, She saw podiatry, MTX/folic acid, prednisone, Humira, IV Inflectra, Enbrel, Arava, physical therapy * 09/23/2016: ESR 18.0, Uric acid 8.1, CRP normal, RF 15.4 (<13.9 normal), NADEEM IFA negative, CBC normal, Glucose 148, CMP otherwise ok, HbA1c was 6.6%, TSH normal* 12/14/2016: IgG and IgM RF positive assessment Fibromyalgia impression * Medications/treatm ents/interventions tried include: Ibuprofen, Baclofen, gabapentin, Citalopram, hydrocodone/APAP, PT, She saw podiatry, MTX/folic acid, prednisone, Humira, IV Inflectra, Enbrel, Arava, physical therapy assessment High Risk Medication Use 2023 impression Arava 20 mg PO daily for RA impression assessment Body mass index [BMI] 37.0-37.9, adult Patient Care Teams Name Effective Dates (start - stop) Status Members No Information
--- NOTE | 2023-06-13 13:03 | XR_ITS ---
FINAL REPORT CLINICAL HISTORY: Left 5th met Fracture COMPARISON: 05/17/2023 FINDINGS: LEFT FOOT: Three views of the left foot were obtained. Osteopenia is present. There is a comminuted mildly displaced fracture of the distal fifth metatarsal that was also seen on the prior film of May 17. No definite callus formation is identified and no significant changes noted since the prior exam. The joint spaces are intact. There is no soft tissue abnormality. There are multiple orthopedic screws and plates securing a fusion of the calcaneus, talus, and distal tibia. IMPRESSION: Comminuted mildly displaced fracture of the distal fifth metatarsal, unchanged since the prior exam of May 17. Reviewed, Interpreted and Dictated by Pato Dorsey MD Transcribed by Pia Lerma Authenticated and [facility]
== END 2023-06-13 23:59 ==
LOC: RAD 12:55
PROVIDERS: PCP Internal Medicine Adolescent Medicine; Visit Provider Podiatrist
DX: M79.672 Pain in left foot (principal); S99.922A Unspecified injury of left foot, initial encounter; S92.352A Displaced fracture of fifth metatarsal bone, left foot, initial encounter for closed fracture
CPT/HCPCS: 73630

== ENCOUNTER 2023-07-11 12:27 | Outpatient (CLI) | payer OTHER, MEDICARE, SELFPAY ==
--- NOTE | 2023-07-11 12:27 | XR_ITS ---
FINAL REPORT CLINICAL HISTORY: met fx COMPARISON: 06/13/2023 FINDINGS: LEFT FOOT: Three views of the left foot were obtained. There is a comminuted mildly displaced fracture of the distal fifth metatarsal with some callus formation noted since the prior film of June 13. There are also multiple side plates and screws present involving the calcaneus, and the distal tibia, with fusion of the talocalcaneal and tibiotalar joints. There is no soft tissue abnormality. IMPRESSION: Comminuted mildly displaced fracture of the distal fifth metatarsal, with some callus formation noted since the prior films of June 13. Reviewed, Interpreted and Dictated by Pato Dorsey MD Transcribed by Pia Lerma Authenticated and [facility]
--- NOTE | 2023-07-11 13:50 | XR_ITS ---
FINAL REPORT CLINICAL HISTORY: SPONDYLOLISTHESIS pain radiating down R leg COMPARISON: None FINDINGS: 5 views of the lumbar spine were obtained including flexion and extension views. There is interbody fusion of L4-5 and L5-S1. There is mild anterior osteophyte formation at L3-4, L4-5, and L5-S1. There is no evidence of instability on flexion or extension views. IMPRESSION: Interbody fusion L4-5 and L5-S1. Mild anterior osteophyte formation. Reviewed, Interpreted and Dictated by Pato Dorsey MD Transcribed by Areli Houston Authenticated and [facility]
--- NOTE | 2023-07-11 13:51 | CT_ITS ---
FINAL REPORT TECHNIQUE: Axial images were obtained of the lumbar spine by computed tomography. Coronal and sagittal reconstruction process performed. This study was performed with techniques to keep radiation doses as low as reasonably achievable (ALARA). Individualized dose reduction techniques using automated exposure control or adjustment of mA and/or kV according to the patient''s size were employed. CLINICAL HISTORY: SPONDYLOLISTHESIS COMPARISON: None FINDINGS: There is interbody fusion at L4-5 and L5-S1. There are advanced endplate hypertrophic changes at L4-5. There is no malalignment. T12-L1: Moderate posterior osteophyte formation. Calcification of the annulus. Mild to moderate bilateral neuroforaminal narrowing. L1-2: No significant spinal canal compromise or neuroforaminal narrowing. L2-3: No significant spinal canal compromise or neuroforaminal narrowing. L3-4: Moderate diffuse disc bulge. Facet hypertrophy. Mild to moderate bilateral neuroforaminal narrowing. L4-5: Moderate diffuse disc bulge. Endplate hypertrophy. High-grade right and moderate left neuroforaminal narrowing. Posterior laminectomy defect. L5-S1: Prominent posterior osteophyte formation eccentric to the left. Right neuroforamen adequately patent. Moderate to high-grade left neuroforaminal narrowing. Posterior laminectomy defect. IMPRESSION: Endplate hypertrophic changes at L4-5 with moderate to high-grade bilateral neuroforaminal narrowing. Posterior osteophyte formation eccentric to the left at L5-S1 with moderate to high-grade left neuroforaminal narrowing. Posterior laminectomy defects at L4-5 and L5-S1. Reviewed, Interpreted and Dictated by Pato Dorsey MD Transcribed by Areli Houston Authenticated and [facility]
== END 2023-07-11 23:59 ==
LOC: RAD 12:27
PROVIDERS: PCP Internal Medicine Adolescent Medicine; Visit Provider Neurological Surgery
DX: M79.672 Pain in left foot (principal); S92.352A Displaced fracture of fifth metatarsal bone, left foot, initial encounter for closed fracture; S99.922A Unspecified injury of left foot, initial encounter; M43.16 Spondylolisthesis, lumbar region
CPT/HCPCS: 72120; 72131; 73630

== ENCOUNTER 2023-07-12 14:00 | Outpatient (RCR) | payer OTHER, MEDICARE, SELFPAY ==
--- NOTE | 2023-04-06 17:14 | HMH.PTOPEV ---
PT Outpatient Evaluation Rehab PT Outpatient Evaluation Start: 04/06/23 11:41 Freq: Status: Active Protocol: Document 04/06/23 11:42 CECIL (Rec: 04/06/23 15:00 CECIL [id number]) E-signed By Joe Ramirez, PT Outpatient Therapy Subjective History Subjective History Patient is a 57 year old female presenting to outpatient PT with reports of chronic LBP with RLE radicular symptoms. Symptom exacerbation started approx 2 months ago. Patient has underwent 2 lumbar surgeries ( fusion/cages) x 2. Special tests indicate R anterior rotation of the innominant. Corrected with manual. Comorbidities include hx of L ankle fusion, New diagnosis of cancer in past 12 No months? Chief Complaint Pain,Stiff,Paresthesia Symptom Type Ache,Throb,Sharp,Dull,Stabbing ,Burning,Numbness,Tingling, Shooting Symptoms Relieved By Rest/Positioning,Ice,OTC Meds, Prescription Meds Symptoms Aggravated By Standing,Bending/Stooping, Physical Activity,Walking, Lifting Prior Functional Limitations Lifting,Standing,Walking, Bending/Stooping Current Functional Limitations Lifting,Housework,Standing, Walking,Bending/Stooping Symptom Description Constant but Variable Level of pain today (0-10) 2 Pain scale - at its best (0-10) 2 Pain scale - at its worst (0-10) 10 Lumbopelvic Eval Posture Thoracic Spine Posture Standing Position Increased Kyphosis Lumbar Spine Posture Standing Position Decreased Lordosis Assistive device Assistive Devices None / NA Palapation tenderness right lumbar spinal tenderness Yes: L3-5 3/4 Lumbar/Sacral Palpation Findings Tenderness Lumbar/Sacral Palpation Overall Comment R SIJ 3/4 Accessory Movement L3 bilateral L4 bilateral L5 bilateral S1 bilateral Range of Motion Lumbar Spine Active Flexion Range of 48 Motion (degrees) Lumbar Spine Active Extension Range of 11 Motion (degrees) Left Lumbar Spine Lateral Flexion Active 20 Range of Motion (degrees) Right Lumbar Spine Lateral Flexion 14 Active Range of Motion (degrees) Manual Muscle Test Bilateral Knee Extension Strength Grade 5 Normal Knee Flexion Strength Grade 5 Normal Hip Flexion Strength Grade 5 Normal Extensor Hallucis Longus Strength Grade 5 Normal Ankle Dorsiflexion Strength Grade 5 Normal Gastronemius/Soleus Strength Grade 5 Normal Altered Sensation Right LE Dermatome Level L4,L5,S1 Comment Pain/NT Special Tests Lumbar Spine Screen Positive Hip Garrick (ARIAN) Test Positive Left,Positive Right Hip Oswald Test Positive Left,Positive Right Hip Piriformis Test Positive Left,Positive Right Sciatic Nerve Tension Test Negative Left,Positive Right Sacroiliac Joint Compression Test Positive Right Sacroiliac Joint Distraction Test Positive Right Lumbar Long [place] Distraction Test/Manual Positive Traction Oswestry Index Section 1 Pain Intensity The pain comes and goes and is severe Section 2 Personal Care (Washing,Dresing) my way of washing or dressing even though it causes some pain Section 3 Lifting I can only lift very light weights at most Section 4 Walking I cannot walk more than 1/4 mile without increasing pain Section 5 Sitting Pain prevents me from sitting for more than 1/2 hour Section 6 Standing I cannot stand more than 1/2 hour without increasing pain Section 7 Sleeping Because of my pain, my normal night's sleep is less than 6 hours sleep Section 8 Social Life Pain has restricted my social life and I do not go out often Section 9 Traveling I get extra pain while traveling, but it does not compel me to seek al Section 10 Changing Degreee of Pain My pain is neither getting better or worse Score and Risk Level Oswestry Sc 30 Oswestry Risk Level Severe Disability Outpatient Therapy Assessment Impairments Problems/Impairmments Palpation Tenderness,Impaired Range of Motion,Impaired Strength,Impaired Walking, Impaired Standing,Impaired Lifting,Impaired Household Care,Impaired Stair Climbing, Impaired Incline Stepping, Impaired Stepping on Uneven Surface,Impaired Squatting, Impaired Bending,Subjective C/ O Pain Prognosis Rehab Potential Good Clinical Impression Consistent with Diagnosis Yes Short Term Goals Number of Weeks 2 Decrease Subjective C/O Pain Yes: 5/10 at worst Patient to be Ind w/ HEP Yes Esol Teacher Assistant Goals Number of Weeks 4-6 Decreased Palpation Tenderness Yes: 1/ Increase Range of Motion Yes: 75% WNL Increase Strength Yes: Core stabilizers 5/5 Increase Ability to Walk Yes: 1 hr without difficulty Increase Ability to Stand Yes: Improve Ability For Household Care Yes Improve Ability to Bend Yes Improve Oswestry Score Yes: Mild disability Decrease Subjective C/O Pain Yes: 2/10 at worst Outpatient Therapy Plan of Care Treatment Plan May Include Therapeutic Exercise Including Home Yes Exercise Program Manual Therapy Techniques Yes Neuromuscular Re-education Yes Therapeutic Activities to Return to Yes Previous Functional/Work Level Gait Training Yes ADL/Self Care Education Yes Mechanical Traction Yes Dry Needling Yes Thermal Modalities Yes Electrical Stimulation Yes Ultrasound/Phonophoresis Yes Iontophoresis Yes Orthotics/Bracing/Splinting Yes Massage Yes Eval/Re-Eval Yes Aquatic Therapy Yes Frequency Times per week 2 Duration Number of Weeks 4-6 Addendums This patient is a candidate for social No or vocational rehab? Patient/Guardian verbally acknowledges Yes understanding of treatment program and consents to further treatment? Patient/Guardian verbally acknowledges Yes understanding of diagnosis, prognosis and goals for treatment? Eval Complexity PT Charges 41181 - Moderate Complexity Shoulder/Elbow Eval Shoulder Objective Measurements Elbow Objective Measurements PHYSICIAN CERTIFICATION: I certify the specified therapy services for Neeru Samano are required, authorized, and reviewed every 30 days.
--- NOTE | 2023-05-16 17:56 | HMH.RHREAS ---
Rehab Reassessment Rehab OP Re-assessment Start: 04/06/23 11:41 Freq: Status: Active Protocol: Document 05/16/23 17:18 ECCIL (Rec: 05/16/23 17:55 CECIL [id number]) E-signed By Joe Ramirez, PT Oswestry Index Section 1 Pain Intensity The pain comes and goes and is severe Section 2 Personal Care (Washing,Dresing) increase the pain, but I manage not to change my way of doing it Section 3 Lifting lifting heavy weights off the floor, but I can manage light to medium Section 4 Walking I cannot walk more than 1/4 mile without increasing pain Section 5 Sitting Pain prevents me from sitting for more than 1/2 hour Section 6 Standing I cannot stand more than 10 minutes without increasing pain Section 7 Sleeping Because of my pain, my normal night's sleep is less than 6 hours sleep Section 8 Social Life Pain has restricted my social life and I do not go out often Section 9 Traveling Pain restricts me to short necessary journeys under 30 minutes Section 10 Changing Degreee of Pain My pain is neither getting better or worse Score and Risk Level Oswestry Sc 33 Oswestry Risk Level Severe Disability Rehab Re-assessment Subjective Subjective Patient reports 20% improvement since start of care. Objective Objective Notes LS AROM: flx; ext; SBr; SBl RLE MMT: WNL Pain: 5/10 today; 10x10 at worst over past week Neuro: WNL TTP: R piriformis mm 3/4 Assessment Progress Assessment Slower Than Expected Assessment Notes Patient has been seen for 4 treatment visits to date. Slower progress noted secondary to 5th metatarsal fracture in R foot. Patient would benefit from continuing with skilled PT services in order to address functional limitations with all prolonged standing/walking, bending and lifting activities. Patient goals met STG 2 Goals Not Met All others Revised Goals NA Plan Plan Continue with current POC. Frequency of Therapy 2x/week Duration of therapy 4 weeks PHYSICIAN CERTIFICATION: I certify the specified therapy services for Neeru Samano are required, authorized, and reviewed every 30 days.
--- NOTE | 2023-06-28 15:30 | HMH.RHREAS ---
Rehab Reassessment Rehab OP Re-assessment Start: 04/06/23 11:41 Freq: Status: Active Protocol: Document 06/28/23 14:55 CECIL (Rec: 06/28/23 15:30 CECIL [id number]) E-signed By Joe Ramirez, PT Oswestry Index Section 1 Pain Intensity The pain comes and goes and is moderate Section 2 Personal Care (Washing,Dresing) change my way of washing or dressing in order to avoid pain Section 3 Lifting lifting heavy weights off the floor, but I can manage light to medium Section 4 Walking I cannot walk more than 1/4 mile without increasing pain Section 5 Sitting Pain prevents me from sitting for more than one hour Section 6 Standing I cannot stand more than 1/2 hour without increasing pain Section 7 Sleeping Because of my pain, my normal night's sleep is less than 6 hours sleep Section 8 Social Life My social life is normal but increases the degree of pain Section 9 Traveling I get extra pain while traveling, but it does not compel me to seek al Section 10 Changing Degreee of Pain My pain fluctuates, but overall is definitely getting better Score and Risk Level Oswestry Sc 21 Oswestry Risk Level Moderate Disability Rehab Re-assessment Subjective Subjective Patient reports 75% improvement since start of care. [ End ] Objective Objective Notes LS AROM: flx 78 ; ext 11; SBr 16; SBl 18 RLE MMT: WNL Pain: 3/10 today; 5/10 at at worst over past week Neuro: WNL TTP: R piriformis mm 3/4 [ End ] Assessment Progress Assessment Slower Than Expected Assessment Notes Patient consulted with MD regarding further surgical options. MD suggested referral to pain managment, or possible lumbar spine fasciotomy. Slower progress noted secondary to 5th metatarsal fracture in R foot, which is healing well. Patient no longer in CAM walker. Patient would benefit from continuing with skilled PT services in order to address functional limitations with all prolonged standing/ walking, bending and lifting activities. Patient goals met STG's Goals Not Met LTG's Revised Goals NA Plan Plan Continue with current POC. Introduce core stabilization progression. Frequency of Therapy 2/week Duration of therapy 4 weeks Time and Billing Re-Eval Time 16 Re-Eval Billing Units 1 PHYSICIAN CERTIFICATION: I certify the specified therapy services for [place]er[facility] are required, authorized, and reviewed every 30 days.
== END 2023-07-12 15:00 | disposition home or self-care (01) ==
LOC: PT 14:00
PROVIDERS: PCP Internal Medicine Adolescent Medicine; Visit Provider Nurse Practitioner Family
DX: M54.41 Lumbago with sciatica, right side (principal)
CPT/HCPCS: 20560; 20561; 97010; 97012; 97014; 97110; 97140; 97163; 97164; 97530; G0283

== ENCOUNTER 2023-07-17 12:58 | Outpatient (POV) | payer OTHER, MEDICARE, SELFPAY ==
--- NOTE | 2023-07-17 13:02 | EXP.PAIN.OV ---
HPI Data of Consult Patient: new to practice Consult date: 07/17/23 Requesting Physician: Jane Franco APRN Primary Care Provider: Shikha Grimm APRN Consult Narrative Reason for consult: Low back pain, right leg pain History of present illness: Ms. Samano is a 58 year old female who presents today as a new patient. She is a referral from Dr. Anshul Banks's office. Today she rates her pain an 8 out of 10. Patient states her pain is all in her low back with radiating symptoms down her entire right leg. Patient states this has been going on for years however progressively worsened in February 2023 unrelated to any specific injury or trauma. Patient does describe her pain as a sharp shooting electrical sensation type pain with numbness and tingling into her lower extremity. Patient states that it is worse with increased activity or ambulation. She states the pain does interfere with her ability perform activities of daily living such as cooking or cleaning or even simple ambulation. Patient does state that she has trouble with her leg giving out due to the pain and weakness. Patient has had a lumbar fusion in the past and states that Dr. Banks is questioning whether or not something is going on with the hardware and that she may need a revision. Patient does state that he is wanting to try conservative treatment first before proceeding forward with surgical intervention. Patient has done physical therapy just last year and it did help some however she continues to have significant pain. Patient has been tried on gabapentin with some improvement. Patient is interested in any help we may be able to provide.Patient is currently managed with [place] 7.5 mg 4 times a day and gabapentin 400 mg 4 times a day from her primary care provider. Her Pola has been reviewed and is appropriate. CC: Jane Franco APRN [facility] Disclaimer: The information contained in this section may have been updated after the patient was seen, as this information can be updated by other users. Medical History Atrial fibrillation Fatigue HTN (hypertension) LV dysfunction Lymphadenopathy CHEY (obstructive sleep apnea) Pulmonary histoplasmosis Pulmonary histoplasmosis granuloma Solitary pulmonary nodule Surgical History History of arthroscopy of shoulder History of surgery on lower extremity Family History Other Hypertension Social History Smoking Status: Never smoker alcohol intake: never counseling provided: none substance use type: denies use current occupational status: retired Travel in the last 8 weeks: None household members: significant other housing: house current occupational exposures/hazards: No caffeine: No Review of Systems Review of Systems Review of systems:: pertinent systems reviewed and negative unless documented below Review of systems (narrative): Review of Systems: General: No recent weight changes, no fever, no sleep disturbances Respiratory: No cough, no shortness of air, no recurring pulmonary infections Cardiovascular/peripheral vascular: No chest pain, no palpitations, no edema, no shortness of breath Gastrointestinal: No new onset incontinence, normal bowel movements reported Genitourinary: No new onset incontinence Musculoskeletal: Low back pain, right leg pain Psychiatric: [Normal mood/affect] Neurological: [Denies weakness in extremities], [denies balance issues] Meds Home Medications and Allergies Home Medications Medication Instructions Recorded Confirmed Type esomeprazole magnesium 40 mg 40 mg PO DAILY acid reflux 09/05/17 07/11/23 History capsule,delayed release hydrocodone 7.5 mg-acetaminophen 1 tab PO Q6H PRN pain, moderate 09/05/17 07/11/23 History 300 mg tablet rivaroxaban 20 mg tablet (Xarelto) 20 mg PO QPM Blood thinner 09/05/17 07/11/23 History sucralfate 1 gram tablet 1 g PO BID stomach 09/05/17 07/11/23 History diazepam 5 mg tablet 5 mg PO BID PRN Muscle Spasm 05/31/18 07/11/23 Rx empagliflozin 25 mg tablet 25 mg PO DAILY Diabetes 90 days 02/07/19 07/11/23 History #90 tabs dulaglutide 1.5 mg/0.5 mL 1.5 mg SQ WEEKLY 01/06/21 07/11/23 History subcutaneous pen injector diltiazem HCl 120 mg See Rx Instructions .Route 03/30/23 07/11/23 Rx capsule,extended release 24 hr .COMPLEX #90 caps bisoprolol fumarate 5 mg tablet 5 mg PO DAILY #90 tabs 04/10/23 07/11/23 Rx citalopram 20 mg tablet 40 mg PO HS mood 04/19/23 07/11/23 History gabapentin 400 mg capsule 400 mg PO QID neuropathy 04/19/23 07/11/23 History hydrochlorothiazide 25 mg tablet 12.5 mg PO QAM diuretic 04/19/23 07/11/23 History losartan 100 mg tablet 50 mg PO DAILY blood pressure 04/19/23 07/11/23 History ergocalciferol (vitamin D2) 1,250 1,250 mcg PO WEEKLY low vit D 3 07/11/23 07/11/23 Rx mcg (50,000 unit) capsule (Vitamin months #13 caps D2) New Prescriptions to Start Prescriptions: Allergies Allergy/AdvReac Type Severity Reaction Status Date / Time Penicillins Allergy Intermediate I-RASH Verified 07/11/23 13:19 Objective Narrative: Physical Exam: General: Alert and oriented x3, no acute distress, pleasant and cooperative Lungs: Respirations even and unlabored, symmetrical chest expansion Eyes: PERRL Musculoskeletal: Flexion and extension of lumbar [spine] somewhat guarded secondary to pain, [antalgic gait noted] positive right leg raise with decreased sensation to light touch and decreased reflexes Neurological: Speech clear, no gross sensory deficit Additional findings Additional findings: COMPARISON: None FINDINGS: There is interbody fusion at L4-5 and L5-S1. There are advanced endplate hypertrophic changes at L4-5. There is no malalignment. T12-L1: Moderate posterior osteophyte formation. Calcification of the annulus. Mild to moderate bilateral neuroforaminal narrowing. L1-2: No significant spinal canal compromise or neuroforaminal narrowing. L2-3: No significant spinal canal compromise or neuroforaminal narrowing. L3-4: Moderate diffuse disc bulge. Facet hypertrophy. Mild to moderate bilateral neuroforaminal narrowing. L4-5: Moderate diffuse disc bulge. Endplate hypertrophy. High-grade right and moderate left neuroforaminal narrowing. Posterior laminectomy defect. L5-S1: Prominent posterior osteophyte formation eccentric to the left. Right neuroforamen adequately patent. Moderate to high-grade left neuroforaminal narrowing. Posterior laminectomy defect. IMPRESSION: Endplate hypertrophic changes at L4-5 with moderate to high-grade bilateral neuroforaminal narrowing. Posterior osteophyte formation eccentric to the left at L5-S1 with moderate to high-grade left neuroforaminal narrowing. Posterior laminectomy defects at L4-5 and L5-S1. Reviewed, Interpreted and Dictated by Pato Dorsey MD Transcribed by Areli Houston Authenticated and [facility] Assessment and Plan *Assessment and plan (1) Degenerative disc disease, lumbar: Status: Acute Category: Medical Code(s): M51.36 - Other intervertebral disc degeneration, lumbar region (2) Lumbar radiculopathy: Status: Acute Category: Medical Code(s): M54.16 - Radiculopathy, lumbar region (3) Lumbar spinal stenosis: Status: Acute Qualifiers: Neurogenic claudication status: with neurogenic claudication Qualified Code(s): M48.062 - Spinal stenosis, lumbar region with neurogenic claudication Category: Medical Code(s): M48.061 - Spinal stenosis, lumbar region without neurogenic claudication (4) Right leg pain: Status: Acute Category: Medical Code(s): M79.604 - Pain in right leg Plan Patient is experiencing worsening pain in her low back with symptoms radiating down her entire right leg. Patient had limited range of motion of her lumbar spine along with a positive right leg raise and decreased sensation to light touch and decreased reflexes during today's exam. I have discussed with the patient that she may benefit from a right transforaminal epidural steroid injection. Risk and benefits were discussed with the patient and she would like to proceed forward with this plan of care. Patient is currently on Xarelto that is written from her primary care provider Khadra Grimm. I have counseled the patient that we will reach out to her office and confirm that she can stop this medication prior to her injection. Patient will be scheduled for a right transforaminal epidural steroid injection L4-L5 and L5-S1 under fluoroscopy. Patient did have high-grade compromise at the L4-L5 level. Patient has been instructed to contact the clinic with any concerns before the next appointment. Dr. Veliz has reviewed this note and agrees with this plan of care. This note was dictated using voice recognition software and make contain errors or omissions.
[2023-07-17 13:19] VITALS: BP 140/86; PULSE 83; RESP 18; O2SAT 94; BMI 36.5
[2023-07-17 15:33] LABS: Basophils % 0.4 % (0.1-2.0); Eosinophils # 1.4 K/mm3 (0.0-0.4); Eosinophils % 16.6 % (0.1-12.0); Hematocrit 43.2 % (37.0-47.0); Hemoglobin 13.8 g/dL (12.2-16.2); Lymphocytes # 2.9 K/mm3 (0.7-4.5); Lymphocytes % 33.5 % (10-50); Mean Corpuscular Hemoglobin 28.2 pg (27.0-31.2); Mean Platelet Volume 7.6 fl (7.4-10.4); Monocytes # 0.6 K/mm3 (0.1-1.0); Monocytes % 7.1 % (1.7-9.3); Neutrophils # 3.7 K/mm3 (1.8-7.8); Neutrophils % 42.3 % (37.0-80.0); Platelet Count 257 K/mm3 (142-424); Red Cell Distribution Width 14.6 % (11.5-17.5); White Blood Count 8.7 K/mm3 (4.8-10.8)
[2023-07-17 16:33] LABS: Chloride 105 mmol/L (98-107); Potassium 4.2 mmoL/L (3.5-5.1); Sodium 136 mmol/L (136-145)
[2023-07-17 16:35] LABS: Erythrocyte Sedimentation Rate 14 mm/hr (0-30)
[2023-07-17 16:36] LABS: Alanine Aminotransferase 16 U/L (12-78); Albumin Level 4.2 g/dl (3.5-5.0); Albumin/Globulin Ratio 1.3 (1.1-1.8); Alkaline Phosphatase 89 U/L (38-126); Anion Gap 6.2 mEq/L (5-15); Aspartate Amino Transferase 33 U/L (14-36); Bilirubin,Total 0.6 mg/dl (0.2-1.3); Blood Urea Nitrogen 17 mg/dl (7-17); Calcium 9.8 mg/dl (8.4-10.2); Carbon Dioxide 29 mmol/L (22.0-30.0); Creatinine Clearance Estimated 149 mL/min (50-200); Estimated Glomerular Filt Rate 86 ml/min (>60); GFR (African American) 104 ML/MIN (>60); Globulin 3.3 g/dL (1.3-3.2); Glucose 181 mg/dl (74-100); Total Protein,Serum 7.5 g/dl (6.3-8.2)
[2023-07-17 16:42] LABS: C-Reactive Protein 1.4 mg/L (0-4)
== END 2023-07-17 23:59 ==
PROVIDERS: Internal Medicine; PCP Nurse Practitioner Family; Visit Provider Nurse Practitioner Family
DX: M51.16 Intervertebral disc disorders with radiculopathy, lumbar region (principal); M48.062 Spinal stenosis, lumbar region with neurogenic claudication; M79.604 Pain in right leg
CPT/HCPCS: 36415; 80053; 85025; 85651; 86140; 99202; G0463

== ENCOUNTER 2023-08-08 08:25 | Day surgery (SDC) | payer OTHER, MEDICARE, SELFPAY ==
[2023-08-08 08:56] VITALS: BP 156/84; PULSE 84; RESP 16; O2SAT 95; BMI 36.5
[2023-08-08 09:04] VITALS: BP 150/92; PULSE 79; RESP 18; O2SAT 95
[2023-08-08] MEDS: LIDOCAINE 1% 5ML PF VIAL 5 ML (09:04)
[2023-08-08 09:06] VITALS: BP 150/92; PULSE 81; RESP 18; O2SAT 95
[2023-08-08 09:15] VITALS: BP 173/88; PULSE 73; RESP 18; O2SAT 95
--- NOTE | 2023-08-08 09:26 | EXP.PAIN.PRO ---
Procedure Date: 08/08/23 Time: 09:15 Anesthesiologist:: Garrick Fernandez CRNA Complications:: None Pre-procedure Diagnosis:: Lumbar degenerative disc disease with lumbar radiculopathy. lumbar spinal stenosis. Post-procedure Diagnosis:: Same Indications for Procedure:: Patient is a pleasant 58-year-old female who presents to the clinic today for a right lumbar transforaminal epidural steroid injection. Patient complains of low back pain with radiculopathy symptoms to her right lower extremity. Patient rates pain 7/10. Procedure Details:: Details of the procedure were explained to the patient. The patient was taken the procedure room placed in the prone position. The area of the lumbar spine was cleansed using chlorhexidine as a cleansing solution. At this time using fluoroscopy guidance markers were placed on the right lateral border of the L4 and L5 vertebral body. The skin and subcutaneous tissue was anesthetized using 1% lidocaine and 25-gauge needle. At this time using a 22-gauge 3-1/2 inch spinal needle the right upper one third of the L4-5 foramen was accessed. The same was done at the right L5-S1 foramen. Needle positions were confirmed and a lateral view using fluoroscopy and contrast dye. At this time 1 cc of 1% lidocaine +20 mg of Depo-Medrol was injected at each level after negative aspiration. [place] were removed. Band-Aid applied. Patient tolerated the procedure without difficulty. There are no complications. Plan and Disposition:: Patient discharged from the clinic without incident.
== END 2023-08-08 09:15 | disposition home or self-care (01) ==
PROVIDERS: PCP Nurse Practitioner Family; Visit Provider Nurse Anesthetist, Certified Registered
DX: M51.16 Intervertebral disc disorders with radiculopathy, lumbar region (principal); M48.061 Spinal stenosis, lumbar region without neurogenic claudication
CPT/HCPCS: 64483; 64484; J1030

== ENCOUNTER 2023-08-15 13:02 | Outpatient (CLI) | payer OTHER, MEDICARE, SELFPAY ==
--- NOTE | 2023-08-15 13:05 | XR_ITS ---
FINAL REPORT CLINICAL HISTORY: Foot pain COMPARISON: 07/11/2023 FINDINGS: LEFT FOOT Three views of the left foot demonstrate the comminuted mildly displaced fracture of the distal fifth metatarsal, also seen on the prior films of July 11. There is increased callus formation compared with the prior exam consistent with healing. There is orthopedic hardware securing the ankle mortise and posterior subtalar joint. There is a moderate plantar spur and a moderate posterior calcaneal spur consistent with a Aleja deformity. The soft tissues are unremarkable. IMPRESSION: Fracture of the distal fifth metatarsal, with callus formation noted to be increased since the prior films of July 11. Reviewed, Interpreted and Dictated by Pato Dorsey MD Transcribed by Pia Lerma Authenticated and [facility]
== END 2023-08-15 23:59 ==
LOC: RAD 13:03
PROVIDERS: PCP Internal Medicine Adolescent Medicine; Visit Provider Podiatrist
DX: M79.672 Pain in left foot (principal)
CPT/HCPCS: 73630

== ENCOUNTER 2023-08-30 10:13 | Outpatient (POV) | payer OTHER, MEDICARE, SELFPAY ==
[2023-08-30 10:14] VITALS: BP 162/89; PULSE 82; RESP 18; TEMP 36.5; O2SAT 93; BMI 35.7
--- OUTSIDE RECORDS SUMMARY | 2023-08-30 10:15 | XMS_ITS | Continuity of Care Document ---
Author Name Unknown Organization [facility] Address [address] [address] Phone Care Team Providers Care Cub Reporter Name Role Phone Russell Prabhakar DO Unavailable Unavailable Allergies, Adverse Reactions, Alerts Substance Reaction Status Criticality Penicillins Active No Information Medications Medication Instructions Dosage Effective Dates (start - stop) Status Comments LEFLUNOMIDE TABS 20MG TAKE 1 TABLET DAILY - Active Enbrel SureClick 50 mg/mL (1 mL) subcutaneous pen injector INJECT 1 ML UNDER THE SKIN EVERY WEEK - Active PA approved until 10/26/23. 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 No Information 4 Vanna Wells. 330 [facility], [address], [place], [address]. tel:[phone] Office Visit Level IV [facility], [address], [id number], [place] tel:[phone] [facility]. Follow Up of Fibromyalgia Syndrome (chief complaint)Rhe umatoid Arthritis (chief complaint) Immune deficiency due to current drugSeroposi tive Rheumatoid ArthritisFib romyalgiaHig h Risk Medication UseBody mass index (BMI) 37.0-37.9, adult 4 [facility]. [address], [place], [address]. tel:[phone] Primary Practice Provider: Abhishek Griggs [address] [place] [address] [address], [place], [address]. tel:[phone] erring Provider: Shikha Grimm [address] [place] [address] [address], [address]. tel:[phone] Office Visit Level IV [facility], [address] [place] [address], [place], [place], [id number], [place] tel:[phone] [facility]. Follow Up of Fibromyalgia Syndrome (chief complaint)Rhe umatoid Arthritis (chief complaint) Immune deficiency due to current drugSeroposi tive Rheumatoid ArthritisFib romyalgiaOth er fatigueBody mass index (BMI) 39.0-39.9, adultHigh Risk Medication Use 3 [facility]. [address], [place], [address]. tel:[phone] Primary Practice Provider: Abhishek Griggs [address] [place] [address] [address], [place], [address]. tel:[phone] erring Provider: Shikha Grimm [address] [place] [address] [address], [address]. 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 [address] [place] [address], [id number], . tel:[phone] Referring Provider: Shikha Grimm, [address] [place] [address] [address] [facility] 2[place], [address]. tel:[phone] Office Visit Level IV [facility], [address] [place] [address], [id number], tel:[phone] [facility] Follow Up of Fibromyalgia Syndrome (chief complaint)Rhe umatoid Arthritis (chief complaint) Seropositive Rheumatoid ArthritisFib romyalgiaBod y mass index (BMI) 39.0-39.9, adultImmune deficiency due to current drugHigh Risk Medication Use Nov- 2 [facility]. [address] [place] [address], [address]. tel:[phone] Referring Provider: Shikha Grimm [address] [place] [address] [address], [address]. tel:[phone] [facility] [address] [place] [address], [id number], tel:[phone] [facility] No Information 2 [facility]. [address] [place] [address], [address]. tel:[phone] Primary Practice Provider: Abhishek Griggs, [address] [place] [address] [address] [facility], [place], [address]. tel:[phone] erring Provider: Shikha Grimm [address], [address]. tel:[phone] Office Visit Level IV [facility], [address] [place] [address], [id number], tel:[phone] [facility] Follow Up of Fibromyalgia Syndrome (chief complaint)Rhe umatoid Arthritis (chief complaint) Immunosuppre ssionSeropos itive Rheumatoid ArthritisFib romyalgiaBod y mass index (BMI) 39.0-39.9, adultMethotr exate, retirement, current useBody mass index (BMI) 40.0-44.9, adultFatigue 2 Amador Carrillo. [address] [place] [address], [id number], . tel:[phone] Referring Provider: Shikha Grimm, [address] [place] [address] [address], [address]. tel:[phone] [facility] [address] [place] [address], [id number], [place] tel:[phone] [facility]. No Information 2 [facility]. [address] [place] [address], [address]. tel:[phone] Referring Provider: Shikha Grimm [address] [place] [address] [address], [address]. tel:[phone] [facility].., [address] [place] [address], [id number], [place] tel:[phone] [facility] No Information 2 [facility]. [address] [place] [address], [address]. tel:[phone] Referring Provider: Shikha Grimm [address] [place] [address] [address], [address]. tel:[phone] Office Visit Level IV [facility] [address] [facility], [place], [place], [id number], [place] tel:[phone] [facility] Follow Up of Fibromyalgia Syndrome (chief complaint)Rhe umatoid Arthritis (chief complaint) Immunosuppre ssionSeropos itive Rheumatoid ArthritisFib romyalgiaBod y mass index (BMI) 39.0-39.9, adultMethotr exate, marine oil terminal superintendent, current useFatigue 2 [facility]. [address], [address], [place], [address]. tel:[phone] Primary Practice Provider: Abhishek Griggs, [address] [place] [address] [address] [facility], [place], [address]. tel:[phone] erring Provider: Shikha Grimm, [address] [place] [address] 36 [address] [facility] 2[place], [address]. tel:[phone] [facility].., [address], [id number], [place] tel:[phone] [facility] No Information 2 [facility]. [address], [address], [place], [address]. tel:[phone] Referring Provider: Shikha Grimm, [address] [place] [address] [address], [place], [address]. tel:[phone] [facility] SRVC 20 MIN [facility] 330 [facility] [address] [place] [address], [id number], [place] tel:[phone] [facility], .S.. No Information 2 [facility]. [address], [address], [place], [address]. tel:[phone] Referring Provider: Shikha Grimm [address] [place] [address] [address], [address]. tel:[phone] Office Visit Level IV [facility] [address] [place] [address], [id number], [place] tel:[phone] [facility] Follow Up of Fibromyalgia Syndrome (chief complaint)Rhe umatoid Arthritis (chief complaint) Immunosuppre ssionSeropos itive Rheumatoid ArthritisFib romyalgiaBod y mass index (BMI) 39.0-39.9, adultMethotr exate, marine oil terminal superintendent, current use 2 [facility]. [address], [address], [address]. tel:[phone] Primary Practice Provider: Abhishek Griggs, [address] [place] [address] [address] [facility], [place], [address]. tel:[phone] erring Provider: Shikha Grimm, [address] [place] [address] [address], [place], [address]. tel:[phone] [facility] [address] [place] [address], [id number], [place] tel:[phone] [facility] No Information 1 [facility]. [address], [address], [address]. tel:[phone] Referring Provider: Shikha Grimm, [address] [place] [address] [address], [address]. tel:[phone] Office Visit Level IV [facility] [address] [place] [address], [id number], [place] tel:[phone] [facility] Follow Up of Fibromyalgia Syndrome (chief complaint)Rhe umatoid Arthritis (chief complaint) Immunosuppre ssionSeropos itive Rheumatoid ArthritisFib romyalgiaBod y mass index (BMI) 40.0-44.9, adultMethotr exate, retirement, current useBody mass index (BMI) 39.0-39.9, adultOther fatigue Jan- 1 [facility]. [address], [address], [place], [address]. tel:[phone] Referring Provider: Shikha Grimm [address], [place], [address]. tel:[phone] [facility] [address] [facility] [address] [place] [address], [id number], tel:[phone] [facility] No Information 1 [facility]. [address], [address], [place], [address]. tel:[phone] Referring Provider: Shikha Grimm [facility], [address]. tel:[phone] [facility] [address] [facility] [address] [place] [address], [id number], [place] tel:[phone] [facility] No Information 1 [facility]. [address], [address], [place], [address]. tel:[phone] Referring Provider: Shikha Grimm [facility], [address]. tel:[phone] [facility] [address] [facility] [address] [place] [address], [id number], [place] tel:[phone] [facility] No Information 1 [facility]. [address], [address], [place], [address]. tel:[phone] Referring Provider: Shikha Grimm [facility], [address]. tel:[phone] [facility] [address], [id number], [place] tel:[phone] [facility] Follow Up of Fibromyalgia Syndrome (chief complaint)Rhe umatoid Arthritis (chief complaint) Immunosuppre ssionSeropos itive Rheumatoid ArthritisFib romyalgiaBod y mass index (BMI) 40.0-44.9, adultMethotr exate, retirement, current use 0 1 [facility]. [address], [address], [place], [address]. tel:[phone] Office Visit Level IV [facility].., [address] [place] [address], [id number], [place] tel:[phone] [facility], .S.. No Information 1 Shira Sloan. [address], [facility], [place], [place], [id number]. tel:[phone] Referring Provider: Shikha Grimm, [facility], [address]. tel:[phone] [facility], [address] [place] [address], [id number], [place] tel:[phone] [facility] Follow Up of Fibromyalgia Syndrome (chief complaint)Rhe umatoid Arthritis (chief complaint) Immunosuppre ssionSeropos itive Rheumatoid ArthritisFib romyalgiaFat igueBody mass index (BMI) 40.0-44.9, adultMethotr exate, retirement, current use 0 1 [facility]. [address], [address], [place], [address]. tel:[phone] Office Visit Level IV [facility] [address], [id number], [place] tel:[phone] [facility] Follow Up of Fibromyalgia Syndrome (chief complaint)Rhe umatoid Arthritis (chief complaint) Immunosuppre ssionSeropos itive Rheumatoid ArthritisFib romyalgiaFat igueMethotre xate, marine oil terminal superintendent, current useBody mass index (BMI) 40.0-44.9, adult 1 [facility]. [address], [address]. tel:[phone] Primary Practice Provider: Abhishek Griggs, [address] [place] [address] [address] [facility], [place], [address]. tel:[phone] erring Provider: Shikha Grimm, [address] [place] [address] [address] [facility] 2[place], [address]. tel:[phone] [facility], [address] [place] [address], [id number], tel:[phone] [facility].. No Information 0 [facility]. [address] [place] [address], [address]. tel:[phone] Referring Provider: Shikha Grimm, [address] [place] [address], [address]. tel:[phone] [facility], [address] [place] [address], [id number], tel:[phone] [facility] Follow Up of Fibromyalgia Syndrome (chief complaint)Rhe umatoid Arthritis (chief complaint) Immunosuppre ssionSeropos itive Rheumatoid ArthritisFib romyalgiaFat igueBody mass index (BMI) 45.0-49.9, adultMethotr exate, marine oil terminal superintendent, current useBody mass index (BMI) 40.0-44.9, adult 0 Amador Carrillo. [address] [place] [address], [id number], . tel:[phone] Office Visit Level IV [facility] [address], [id number], [place] tel:[phone] [facility] No Information 0 [facility]. [address] [place] [address], [address]. tel:[phone] Referring Provider: Shikha Grimm, [facility], [address]. tel:[phone] [facility], [address] [place] [address], [id number], [place] tel:[phone] [facility] No Information 0 [facility]. [address] [place] [address], [address]. tel:[phone] Referring Provider: Shikha Grimm [address] [place] [address] [address], [address]. tel:[phone] [facility], [address] [place] [address], [id number], [place] tel:[phone] [facility] Follow Up of Fibromyalgia Syndrome (chief complaint)Rhe umatoid Arthritis (chief complaint) Immunosuppre ssionSeropos itive Rheumatoid ArthritisFib romyalgiaFat igueBody mass index (BMI) 45.0-49.9, adultMethotr exate, retirement, current use Apr-0 0 Amador Carrillo. [address], [id number], [place]. tel:[phone] Office Visit Level IV [facility], [address] [place] [address], [id number], [place] tel:[phone] [facility] No Information 0 0 [facility]. [address] [place] [address], [address]. tel:[phone] Referring Provider: Shikha Grimm, [address] [place] [address] [address], [place], [address]. tel:[phone] [facility]., [address] [place] [address], [id number], tel:[phone] [facility].. No Information 0 [facility]. [address], [facility], [place], [address]. tel:[phone] Referring Provider: Shikha Grimm, [address] [place] [address] [address], [place], [address]. tel:[phone] [facility] .[facility], [address] [place] [address], [id number], [place] tel:[phone] [facility]. No Information 0 [facility]. [address], [facility], [place], [address]. tel:[phone] Referring Provider: Shikha Grimm, [address] [place] [address] [address], [place], [address]. tel:[phone] Office Visit Level IV [facility]., [address] [place] [address], [id number], [place] tel:[phone] [facility] Follow Up of Fibromyalgia Syndrome (chief complaint)Rhe umatoid Arthritis (chief complaint) Immunosuppre ssionSeropos itive Rheumatoid ArthritisFib romyalgiaMet hotrexate, marine oil terminal superintendent, current useBody mass index (BMI) 45.0-49.9, adultFatigue Apr-201 9 [facility]. [address], [facility], [place], [address]. tel:[phone] Primary Practice Provider: Abhishek Griggs, [address] [place] [address] [address] [facility], [place], [address]. tel:[phone] erring Provider: Shikha Grimm, [address] [place], [place] [address]y [address], [address]. tel:[phone] Office Visit Level IV [facility], [address] [place] [address], [id number], tel:[phone] [facility]. 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 [address] [place] [address], [address]. tel:[phone] Primary Practice Provider: Abhishek Griggs, [address] [place] [address] [address] [facility], [place], [address]. tel:[phone] erring Provider: Shikha Grimm, [address] [place] [address] [address], [address]. tel:[phone] Office Visit Level IV [facility], [address] [place] [address], [id number], tel:[phone] [facility]. 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 [address] [place] [address], [address]. tel:[phone] Primary Practice Provider: Abhishek Griggs, [address] [place] [address] [address], [place], [address]. tel:[phone] erring Provider: Shikha Grimm, [address] [place], [place] [address]y [address], [place], [address]. tel:[phone] Office Visit Level IV [facility], [address], [id number], tel:[phone] [facility]. Follow Up of Fibromyalgia Syndrome (chief complaint)Rhe umatoid Arthritis (chief complaint) Immunosuppre ssionSeropos itive Rheumatoid ArthritisFib romyalgiaMet hotrexate, marine oil terminal superintendent, current useBody mass index (BMI) 40.0-44.9, adult 8 [facility]. [address], [place], [address]. tel:[phone] Primary Practice Provider: Abhishek Griggs, [address] [place] [address], [place], [address]. tel:[phone] erring Provider: Shikha Grimm [address] [place] [address] [address], [address]. tel:[phone] Office Visit Level IV [facility] [address] [place] [address], [place], [place], [id number], [place] tel:[phone] [facility]. Follow Up of Fibromyalgia Syndrome (chief complaint)Rhe umatoid Arthritis (chief complaint) Seropositive Rheumatoid ArthritisFib romyalgiaBod y mass index (BMI) 45.0-49.9, adultMethotr exate, retirement, current useImmunosup pression 8 [facility]. [address], [address], [place], [address]. tel:[phone] Primary Practice Provider: Abhishek Griggs [address] [place] [address], [place], [address]. tel:[phone] erring Provider: Shikha Grimm [address] [place] [address] [address], [address]. tel:[phone] Office Visit Level I [facility], [facility] [address], [place], [place], [id number], [place] tel:[phone] [facility]. Seropositive Rheumatoid Arthritis [facility]. [address], [facility], [place], [address]. tel:[phone] Referring Provider: Shikha Grimm, [address] [place] [address] [address], [place], [address]. tel:[phone] [facility] [address] [address], [place], [place], [id number], [place] tel:[phone] [facility] No Information 8 [facility]. [address], [place] [address], [place], [address]. tel:[phone] Referring Provider: Shikha Grimm, [address] [place] [address] [address], [place], [address]. tel:[phone] Office Visit Level IV [facility], [address] [address], [place], [place], [id number], [place] tel:[phone] [facility] Follow Up of Fibromyalgia Syndrome (chief complaint)Rhe umatoid Arthritis (chief complaint) Seropositive Rheumatoid ArthritisFib romyalgiaBod y mass index (BMI) 45.0-49.9, adultCurrent Use of Steroid MedicationMe thotrexate, marine oil terminal superintendent, current useFatigue [facility]. [address], [place] [address], [place], [address]. tel:[phone] Primary Practice Provider: Abhishek Griggs, [address] [place] [address] [address] [facility], [place], [address]. tel:[phone] erring Provider: Shikha Grimm, [address] [place] [address] [address], [place], [address]. tel:[phone] Office Visit Level IV [facility] [address], [id number], [place] tel:[phone] [facility] Fibromyalgia Syndrome (chief complaint)Rhe umatoid Arthritis (chief complaint) Seropositive Rheumatoid ArthritisFib romyalgiaCur rent Use of Steroid MedicationMe thotrexate, marine oil terminal superintendent, current useBody mass index (BMI) 45.0-49.9, adult Dec- 7 [facility]. 330 [facility], [address], [place], [address]. tel:[phone] Primary Practice Provider: Abhishek Griggs, [address] [place] [address] [address], [place], [address]. tel:[phone] erring Provider: Shikha Grimm, [address] [place] [address] [address] [facility] [place], [address]. tel:[phone] Office Visit Level IV [facility] [address] [place] [address], [id number], [place] tel:[phone] [facility] Fibromyalgia Syndrome (chief complaint)Rhe umatoid Arthritis (chief complaint) Seropositive Rheumatoid ArthritisFib romyalgiaMet hotrexate, retirement, current useCurrent Use of Steroid Medication 7 [facility]. [address] [place] [address], [address], [address]. tel:[phone] Primary Practice Provider: Abhishek Griggs, [address] [place] [address] [address] [facility] [address], [place], [address]. tel:[phone] erring Provider: Shikha Grimm [address] [place] [address] [address], [place], [address]. tel:[phone] New Office Visit Level IV [facility] [address] [place] [address], [id number], [place] tel:[phone] [facility] Joint Pain (chief complaint) Rheumatoid Factor PositiveArth ralgiaFatigu e 7 [facility]. [address], [address], [place], [address]. tel:[phone] Primary Practice Provider: Abhishek Griggs, [address] [place] [address] [address] [facility], [place], [address]. tel:[phone] erring Provider: Shikha Grimm, [address] [place] [address] [address], [place], [address]. tel:[phone] [facility] [address] [place], [place] [address]er [facility] [address] [place] [address], [id number], tel:[phone] [facility] No Information 7 [facility]. [address], [address], [place], [address]. tel:[phone] Referring Provider: Shikha Grimm, [address] [place] [address] [address], [place], [address]. tel:[phone] Family History Family Member Type Diagnosis Age At Onset Mother Problem (finding) Diabetes mellitus Mother Problem (finding) Arthritis Problem (finding) Family history of hyper tension Immunizations Vaccine Date Status Comments Flu (split) (3 yrs or older) administered Source: Other Provider Flu (split) (3 yrs or older) administered Note: aprox date ; Source: Public Agency Payers Payer name Insurance type Covered green party ID Authoriza tibridget(s) [facility] [id number] Medicare [id number] Social History Type Description Quantity Date Captured [...] Future Order: Lab Order CBC With Differential/Platelet (033715), Ordered on: Ordered Future Order: Lab Order Comp. Me tabolic Panel (14) (253254), Ordered on: Ordered Future Order: Lab Order C-Reacti ve Protein, Quant (581782), Ordered on: Ordered Future Order: Lab Order Sediment ation Rate-Westergren (472696), Ordered on: Ordered Future Order: Lab Order Acute He patitis Panel (626582), Ordered on: Ordered Future Order: Lab Order CBC With Differential/Platelet (915090), Ordered on: Ordered Future Order: Lab Order C-Reacti ve Protein, Quant (456473), Ordered on: Ordered Future Order: Lab Order Comp. Me tabolic Panel (14) (463555), Ordered on: Ordered Future Order: Lab Order QuantiFE GÓMEZ TB Gold Plus(in Tube) ([id number]), Ordered on: Ordered Future Order: Lab Order Sediment ation Rate-Westergren (797352), Ordered on: Ordered Future Order: Lab Order CBC With Differential/Platelet (404767), Ordered on: Ordered Future Order: Lab Order Comp. Me tabolic Panel (14) (057333), Ordered on: Ordered Future Order: Lab Order C-Reacti ve Protein, Quant (236118), Ordered on: Ordered Future Order: Lab Order Sediment ation Rate-Westergren (738967), Ordered on: Ordered Future Order: Lab Order QuantiFE GÓMEZ TB Gold Plus(in Tube) (555840), Ordered on: Ordered Future Order: Lab Order CBC With Differential/Platelet (613373), Ordered on: Ordered Future Order: Lab Order Comp. Me tabolic Panel (14) (526431), Ordered on: Ordered Future Order: Lab Order C-Reacti ve Protein, Quant (353152), Ordered on: Ordered Future Order: Lab Order Sediment ation Rate-Westergren (846214), Ordered on: Ordered Future Order: Lab Order Hepatiti s Panel (4) (465412), Ordered on: Ordered Future Order: Lab Order CBC With Differential/Platelet (643530), Ordered on: Ordered Future Order: Lab Order Comp. Me tabolic Panel (14) (967205), Ordered on: Ordered Future Order: Lab Order C-Reacti ve Protein, Quant (908271), Ordered on: Ordered Future Order: Lab Order Sediment ation Rate-Westergren (308080), Ordered on: Ordered Future Order: Lab Order Hepatiti s Panel (4) (134277), Ordered on: Ordered Future Order: Lab Order CBC With Differential/Platelet (978526), Ordered on: Ordered Future Order: Lab Order Comp. Me tabolic Panel (14) (929464), Ordered on: Ordered Future Order: Lab Order C-Reacti ve Protein, Quant (746893), Ordered on: Ordered Future Order: Lab Order Sediment ation Rate-Westergren (865695), Ordered on: Ordered Future Order: Lab Order CBC With Differential/Platelet (012414), Ordered on: Ordered Future Order: Lab Order Comp. Me tabolic Panel (14) (692684), Ordered on: Ordered Future Order: Lab Order C-Reacti ve Protein, Quant (919325), Ordered on: Ordered Future Order: Lab Order Sediment ation Rate-Westergren (399772), Ordered on: Ordered Future Order: Lab Order Hepatiti s Panel (4) (424039), Ordered on: Ordered Future Order: Lab Order Quanti FERON - TB Gold IT Plus (Theratest) (TBGP), Ordered on: Ordered Future Order: Lab Order CBC With Differential/Platelet (809039), Ordered on: Ordered Future Order: Lab Order C-Reacti ve Protein, Quant (090923), Ordered on: Ordered Future Order: Lab Order Comp. Me tabolic Panel (14) (349258), Ordered on: Ordered Future Order: Lab Order Sediment ation Rate-Westergren (320161), Ordered on: Ordered Future Order: Lab Order CBC With Differential/Platelet (972771), Ordered on: Ordered Future Order: Lab Order Comp. Me tabolic Panel (14) (509322), Ordered on: Ordered Future Order: Lab Order C-Reacti ve Protein, Quant (481393), Ordered on: Ordered Future Order: Lab Order Sediment ation Rate-Westergren (028450), Ordered on: Ordered Future Order: Lab Order Hepatiti s Panel (4) (940710), Ordered on: Ordered Future Order: Lab Order QuantiFE GÓMEZ TB Gold (In Tube) (812954), Ordered on: Ordered Future Order: Lab Order CBC With Differential/Platelet (002016), Ordered on: Ordered Future Order: Lab Order Comp. Me tabolic Panel (14) (484872), Ordered on: Ordered Future Order: Lab Order C-Reacti ve Protein, Quant (326908), Ordered on: Ordered Future Order: Lab Order Sediment ation Rate-Westergren (176554), Ordered on: Ordered Future Order: Lab Order CBC With Differential/Platelet (496682), Ordered on: Ordered Future Order: Lab Order Comp. Me tabolic Panel (14) (233331), Ordered on: Ordered Future Order: Lab Order C-Reacti ve Protein, Quant (306989), Ordered on: Ordered Future Order: Lab Order Sediment ation Rate-Westergren (251607), Ordered on: Ordered Future Order: Lab Order Hepatiti s Panel (4) (582910), Ordered on: Ordered Future Order: Lab Order Quanti FERON - TB Gold IT Plus (Theratest) (TBGP), Ordered on: Ordered Future Order: Lab Order CBC With Differential/Platelet (046816), Ordered on: Ordered Future Order: Lab Order Comp. Me tabolic Panel (14) (221014), Ordered on: Ordered Future Order: Lab Order C-Reacti ve Protein, Quant (946677), Ordered on: Ordered Future Order: Lab Order Sediment ation Rate-Westergren (399389), Ordered on: Ordered Future Order: Lab Order CBC With Differential/Platelet (860788), Ordered on: Ordered Future Order: Lab Order Comp. [place] tabolic Panel (14) (809333), Ordered on: Ordered Future Order: Lab Order C-Reacti ve Protein, Quant (826312), Ordered on: Ordered Future Order: Lab Order Sediment ation Rate-Westergren (722309), Ordered on: Ordered Future Order: Radiology Order Ch est X-ray, AP/Lat (2 Views) (85585), Ordered on: Ordered Future Order: Lab Order CBC With Differential/Platelet (177636), Ordered on: Ordered Future Order: Lab Order Comp. Me tabolic Panel (14) (164327), Ordered on: Ordered Future Order: Lab Order Hepatiti s Panel (4) (868936), Ordered on: Ordered Future Order: Lab Order C-Reacti ve Protein, Quant (057917), Ordered on: Ordered Future Order: Lab Order Sediment ation Rate-Westergren (136286), Ordered on: Ordered Future Order: Lab Order Quanti FERON - TB Gold IT Plus (Theratest) (TBGP), Ordered on: Ordered Future Order: Lab Order C-Reacti ve Protein, Quant (392255), Ordered on: Ordered Future Order: Lab Order CBC With Differential/Platelet (728748), Ordered on: Ordered Future Order: Lab Order Comp. Me tabolic Panel (14) (972889), Ordered on: Ordered Future Order: Lab Order Sediment ation Rate-Westergren (167059), Ordered on: Ordered Future Order: Lab Order CBC With Differential/Platelet (015880), Ordered on: Ordered Future Order: Lab Order Comp. Me tabolic Panel (14) (853930), Ordered on: Ordered Future Order: Lab Order C-Reacti ve Protein, Quant (022237), Ordered on: Ordered Future Order: Lab Order Sediment ation Rate-Westergren (502673), Ordered on: Ordered Future Order: Lab Order CBC With Differential/Platelet (334992), Ordered on: Ordered Future Order: Lab Order Comp. Me tabolic Panel (14) (358790), Ordered on: Ordered Future Order: Lab Order C-Reacti ve Protein, Quant (664903), Ordered on: Ordered Future Order: Lab Order Sediment ation Rate-Westergren (425935), Ordered on: Ordered Future Order: Radiology Order Ch est X-ray, AP/Lat (2 Views) (36520), Ordered on: Ordered Future Order: Lab Order CBC With Differential/Platelet (825794), Ordered on: Ordered Future Order: Lab Order Comp. Me tabolic Panel (14) (547269), Ordered on: Ordered Future Order: Lab Order C-Reacti ve Protein, Quant (102666), Ordered on: Ordered Future Order: Lab Order Sediment ation Rate-Westergren (227595), Ordered on: Ordered Future Order: Lab Order Hepatiti s Panel (4) (500653), Ordered on: Ordered Future Order: Lab Order QuantiFE GÓMEZ- TB Gold IT (Theratest) (TBQ), Ordered on: Ordered Future Order: Lab Order CBC With Differential/Platelet (687286), Ordered on: Ordered Future Order: Lab Order Comp. Me tabolic Panel (14) (704221), Ordered on: Ordered Future Order: Lab Order C-Reacti ve Protein, Quant (429287), Ordered on: Ordered Future Order: Lab Order Sediment ation Rate-Westergren (239433), Ordered on: Ordered Future Order: Lab Order C-Reacti ve Protein, Quant (540005), Ordered on: Ordered Future Order: Lab Order Sediment ation Rate-Westergren (209105), Ordered on: Ordered Future Order: Lab Order CBC With Differential/Platelet (923233), Ordered on: Ordered Future Order: Lab Order Comp. Me tabolic Panel (14) (682547), Ordered on: Ordered Future Order: Lab Order CBC With Differential/Platelet (858443), Ordered on: Ordered Future Order: Lab Order Comp. Me tabolic Panel (14) (130322), Ordered on: Ordered Future Order: Lab Order Cyclic C itrullinated Peptide-4P (CCP4P), Ordered on: Ordered Future Order: Lab Order EL-NADEEM/9 HIEU Sulema Method IgG (UUD7YIO), Ordered on: Ordered Future Order: Lab Order Rheumato id Factor/3 IgM, IgG, IgA (RF3), Ordered on: Ordered Future Order: Radiology Order Ch est X-ray; AP/Lat (2 views) (42628), Ordered on: Ordered Future Order: Radiology Order Gray nd X-ray; Limited (2 views) (84394), Ordered on: Ordered Future Order: Radiology Order Fo ot X-ray; Complete (3+ views) (64945), Ordered on: Ordered Future Order: Lab Order Antinucl ear Antibodies, NADEEM, IFA (487313), Ordered on: Ordered Future Order: Lab Order CBC With Differential/Platelet (025950), Ordered on: Ordered Future Order: Lab Order Comp. Me tabolic Panel (14) (865582), Ordered on: Ordered Future Order: Lab Order C-Reacti ve Protein, Quant (418163), Ordered on: Ordered Future Order: Lab Order Creatine Kinase,Total,Serum (108892), Ordered on: Ordered Future Order: Lab Order Hepatiti s Panel (4) (475146), Ordered on: Ordered Future Order: Lab Order Sediment pauline Chirinosren (988417), Ordered on: Ordered Future Order: Lab Order Uric Aci d, Serum (386850), Ordered on: Ordered History Of Present Illness [...] Information Instructions Date Instruction Additional Infor heidi 1. [...] Body mass index [BMI] 37.0-37.9, adult 1. H & P consistent with this [...] has taken/tried hydrocodone/APAP PRN Related to Fibromyalgia With next lab draw w e will recheck/update the patient's TB and hepatitis status Related to Other fatigue 1. CBC and CMP every 8-12 weeks to monitor for medication toxicity. 2. No recent serious infections.3. Refill today Related to High Risk Medication Use 1. Continue Arava. 2 . Check labs [...] week and then stop. Related to Methotrexate, retirement, current use 1. Patient to take 0 .3mL methotrexate [...] taken/tried hydrocodone/APAP PRN Related to Fibromyalgia 1. Continue/refill M TX & folic acid2. Continue IV Inflectra3. Check labs every 8-12 weeks for medication toxicity monitoring4. We gave her a patient education handout on back arthritis to take home and review5. She seems well today. 6. Follow up in 3-4 months Related to Seropositive Rheumatoid Arthritis 1. CBC and CMP every 8-12 weeks to monitor for medication toxicity. 2. Take folate supplements daily.3. No recent serious infections.4. Refill today5. At higher doses she has had elevated LFTS Related to Methotrexate, marine oil [employer], current use 1. Hold if the patie nt develops infection. 2. Avoid live vaccines while on this medication. 3. No recent serious infections4. No infusion reactions 5. Also hold this medication perioperatively if the patient is going to have a surgical procedure Related to Immunosuppression Lifestyle education regarding di et Related to Body mass index [BMI] 40.0-44.9, adult 1. H & P consistent with this [...] has had elevated LFTS Related to Methotrexate, marine oil [employer], current use 1. Continue/refill M TX & folic acid2. Continue IV Inflectra3. Check labs every 8-12 weeks for medication toxicity monitoring4. We gave her a patient education handout to take home and review5. She seems well today. 6. Follow up in 3-4 months Related to Seropositive Rheumatoid Arthritis 1. Hold [...] the Moderna Covid-19 vaccine. Related to Immunosuppression 1. H & P [...] is on hydrocodone/APAP PRN Related to Fibromyalgia Change mtx to inject able. She does not tolerate the pills well due to SE. Related to Methotrexate, retirement, current use Lifestyle education regarding di et Related to Body mass index [BMI] 39.0-39.9, adult Her last dose as . Cleared to restartawaiting meds Related to Immunosuppression 1. Last dose of [...] 3-4 months Related to Seropositive Rheumatoid Arthritis restarted 08/2020 Related to Meth otrexate, marine [employer], current use 1. H & P consistent [...] stopped ibuprofen thinking it was hurting her [id number]. She is on an SSRI. Treating anxiety/depression [...] stopped ibuprofen thinking it was hurting her [id number]. She is on an SSRI. Treating anxiety/depression [...] diagnosed her with RMSF Related to Methotrexate, marine [employer], current use This has been held s wilfredo 04/28/20 because her PCP diagnosed her with RMSF Related to Methotrexate, retirement, current use 1. H & P consistent [...] TB and hepatitis status Related to Fatigue Lifestyle education regarding di et Related to [...] stopped ibuprofen thinking it was hurting her [id number]. She is on an SSRI. Treating anxiety/depression [...] given to the patient. Related to Methotrexate, retirement, current use Lifestyle education regarding di et Related to Body mass index (BMI) 40.0-44.9, adult Improved Related to Fatig ue 1. CBC and CMP every 8-12 weeks to monitor for toxicity. 2. Take folate supplements daily.3. No recent serious infections.4. 05/13/19 labs were fine. 5. Standing lab order was renewed & given to the patient. Related to Methotrexate, retirement, current use 1. She is unsure of [...] stopped ibuprofen thinking it was hurting her [id number]. She is on an SSRI. Treating anxiety/depression can help improve myofascial pain 11. She is on hydrocodone/APAP PRN Related to Fibromyalgia Check TB status, hep atitis panel, and [...] stopped ibuprofen thinking it was hurting her [id number]. She is on an SSRI. Treating anxiety/depression can help improve myofascial pain 11. She is on hydrocodone/APAP PRN Related to Fibromyalgia Stop Humira per patient's reques t. Related to Immunosuppression 1. CBC and CMP every 8-12 weeks to monitor for toxicity. 2. Take folate supplements daily.3. No recent serious infections.4. 03/18/2019 labs were fine. 5. Standing lab order was renewed & given to the patient. Related to Methotrexate, marine [employer], current use Lifestyle education regarding di et Related to Body mass index (BMI) 45.0-49.9, adult 1. She seems stable today. 2. She [...] given to the patient. 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 H & P consistent [...] stopped ibuprofen thinking it was hurting her [id number]. She is on an SSRI. Treating anxiety/depression can help improve myofascial pain 11. She is on hydrocodone/APAP PRN Related to Fibromyalgia 1. CBC and CMP every 8-12 weeks to monitor for toxicity. 2. Take folate supplements daily.3. No recent serious infections.4. 08/15/2018 labs were fine. Related to Methotrexate, retirement, current use 1. She seems stable today. [...] stopped ibuprofen thinking it was hurting her [id number]. She is on an SSRI. Treating anxiety/depression [...] stopped ibuprofen thinking it was hurting her [id number]. She is on an SSRI. Treating anxiety/depression can help improve myofascial pain 11. She is on hydrocodone/APAP PRN Related to Fibromyalgia 1. CBC and CMP every 8-12 weeks to monitor for toxicity. 2. Take folate supplements daily.3. No recent serious infections.4. 03/20/2018 labs were fine. Related to Methotrexate, retirement, current use Dietary needs education Related to Body mass [...] 09/12/2017 labs were fine. 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 Continue MTX/foli c acid.2. [...] stopped ibuprofen thinking it was hurting her [id number]. She is on an SSRI. Treating anxiety/depression [...] stopped ibuprofen thinking it was hurting her [id number]. She is on an SSRI. Treating anxiety/depression [...] 3-4 months. Related to Seropositive Rheumatoid Arthritis She stopped steroids because they were making her diabetes more difficult to control. Related to Current Use of Steroid Medication 1. CBC and CMP every 8-12 weeks to monitor for toxicity. 2. Take folate supplements daily.3. No recent serious infections.4. 08/08/2017 labs were fine. 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 Related to Fatigue 1. CBC and CMP every 8-12 weeks to monitor for toxicity. 2. Take folate supplements daily.3. No recent serious infections.4. 04/18/2017 labs were fine. 5. Increase the dose to 20 mg/week. See above. 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 H & P consistent [...] stopped ibuprofen thinking it was hurting her [id number]. She is on an SSRI. Treating anxiety/depression [...] 3-4 months. Related to Seropositive Rheumatoid Arthritis Dietary management e ducation, guidance, and counseling Related to Body mass index (BMI) 45.0-49.9, adult 1. H & P consistent with this [...] stopped ibuprofen thinking it was hurting her [id number]. She is on an SSRI. Treating anxiety/depression can help improve myofascial pain 11. She is on hydrocodone/APAP PRN Related to Fibromyalgia 1. CBC and CMP every 8-12 weeks to monitor for toxicity. 2. Take folate supplements daily.3. No recent serious infections. Related to Methotrexate, retirement, current use Lower today to 2.5 mg/day. Relat ed [...]
--- NOTE | 2023-08-30 10:30 | A.OFFVIS_ITS ---
[facility] Pain Management SOAP Note Subjective:: Patient is a pleasant 58-year-old female who presents today for intrathecal follow-up of cervical epidural steroid injection of L4-L5 on 08/08/2023. Today she rates her pain a 0 out of 10. She states that she has had at least 75% improvement following this injection and feels like it is still continuing to provide additional relief. Patient states that she still will have pain but it is not as severe and not constant like what it was. Patient states that the compounded cream we prescribed her is helping as well. She does state that she does still have a catch that occurs in her back every night when she goes to lay down. Patient has been prescribed Lannon and gabapentin from her primary care. Her Pola is pending. Review of Systems: General: No recent weight changes, no fever, no sleep disturbances Respiratory: No cough, no shortness of air, no recurring pulmonary infections Cardiovascular/peripheral vascular: No chest pain, no palpitations, no edema, no shortness of breath Gastrointestinal: No new onset incontinence, normal bowel movements reported Genitourinary: No new onset incontinence Musculoskeletal: Low back pain Psychiatric: [Normal mood/affect] Neurological: [Denies weakness in extremities], [denies balance issues] Objective:: Physical Exam: General: Alert and oriented x3, no acute distress, pleasant and cooperative Lungs: Respirations even and unlabored, symmetrical chest expansion Eyes: PERRL Musculoskeletal: Flexion and extension of lumbar [spine] somewhat guarded secondary to pain, [antalgic gait noted] Neurological: Speech clear, no gross sensory deficit Assessment:: Degenerative disc disease of lumbar spine with lumbar radiculopathy symptoms Plan:: Patient has had significant improvement following her injection and does not require any additional injection therapy. Patient will return to clinic in 1 month for reevaluation of symptoms and plan of care. Patient has been instructed to contact the clinic with any concerns before the next appointment. Dr. Veliz has reviewed this note and agrees with this plan of care. This note was dictated using voice recognition software and make contain errors or omissions. [facility] Disclaimer: The information contained in this section may have been updated after the patient was seen, as this information can be updated by other users. Medical History Pulmonary histoplasmosis granuloma Solitary pulmonary nodule Lymphadenopathy Pulmonary histoplasmosis CHEY (obstructive sleep apnea) Fatigue Atrial fibrillation HTN (hypertension) LV dysfunction Surgical History History of surgery on lower extremity History of arthroscopy of shoulder Family History Other Hypertension Social History Smoking Status: Never smoker alcohol intake: never counseling provided: none substance use type: denies use current occupational status: retired Travel in the last 8 weeks: None household members: significant other housing: house current occupational exposures/hazards: No caffeine: No
== END 2023-08-30 23:59 ==
LOC: SC.PAIN 10:14
PROVIDERS: PCP Internal Medicine Adolescent Medicine; Visit Provider Nurse Practitioner Family
DX: M51.16 Intervertebral disc disorders with radiculopathy, lumbar region (principal)
CPT/HCPCS: 99212; G0463

== ENCOUNTER 2023-09-25 11:31 | Outpatient (POV) | payer OTHER, MEDICARE, SELFPAY ==
--- OUTSIDE RECORDS SUMMARY | 2023-09-25 11:34 | XMS_ITS | Continuity of Care Document ---
Author Name Unknown Organization [facility] Address [address] [address] Phone Care Team Providers Care Flash Welder Name Role Phone Russell Prabhakar DO Unavailable [...] route every day 5 MG - Active esomeprazole magnesium 40 mg capsule,delayed release take 1 capsule by oral route every day 40 MG - Active sucralfate 1 gram tablet take 1 tablet b y oral route every day on an empty stomach 1 hour before meals and at bedtime 1 G - Active hydrocodone 7.5 mg-acetaminophen 300 mg [...] times every day 400 MG - Active Arava 20 mg tablet TAKE [...] EL-anti-CCP/2 Dna Antb 1 Stranded Dna Antb [place]/2 Stranded Sm,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 No Information 4 Vanna Wells. 330 [facility], [address], [place], [address]. tel:[phone] Office Visit Level IV [facility], [address], [id number], [place] tel:[phone] [facility]. Follow Up of Fibromyalgia Syndrome (chief complaint)Rhe umatoid Arthritis (chief complaint) Immune deficiency due to current drugSeroposi tive Rheumatoid ArthritisFib romyalgiaHig h Risk Medication UseBody mass index (BMI) 37.0-37.9, adult 4 [facility]. [address], [place], [address]. tel:[phone] Primary Practice Provider: Abhishek Griggs [address] [place] [address] E [facility], [place], [address]. tel:[phone] erring Provider: Shikha Grimm [address] [place] [address] [address], [address]. tel:[phone] Office Visit Level IV [facility], [address] [place] [address], [place], [place], [id number], [place] tel:[phone] [facility]. Follow Up of Fibromyalgia Syndrome (chief complaint)Rhe umatoid Arthritis (chief complaint) Immune deficiency due to current drugSeroposi tive Rheumatoid ArthritisFib romyalgiaOth er fatigueBody mass index (BMI) 39.0-39.9, adultHigh Risk Medication Use 3 [facility]. [address], [place], [address]. tel:[phone] Primary Practice Provider: Abhishek Griggs [address] [place] [address] E [facility], [place], [address]. tel:[phone] erring Provider: Shikha Grimm [address] [place] [address] [address], [address]. tel:[phone] Office Visit Level IV [facility] [address] [place] [address], [id number], tel:[phone] [facility] Follow Up of Fibromyalgia Syndrome (chief complaint)Rhe umatoid Arthritis (chief complaint) Immune deficiency due to current drugSeroposi tive Rheumatoid ArthritisFib romyalgiaBod y mass index (BMI) 39.0-39.9, adultHigh Risk Medication UseOther fatigue Apr- 3 Wells ORDER ANALYST Lorena. [address] [place] [address], [id number], . tel:[phone] Referring Provider: Shikha Grimm, [address] [place] [address] 36 E [facility] [place], [address]. tel:[phone] Office Visit Level IV [facility], [address] [place] [address], [id number], tel:[phone] [facility] Follow Up of Fibromyalgia Syndrome (chief complaint)Rhe umatoid Arthritis (chief complaint) Seropositive Rheumatoid ArthritisFib romyalgiaBod y mass index (BMI) 39.0-39.9, adultImmune deficiency due to current drugHigh Risk Medication Use Nov- 2 [facility]. [address] [place] [address], [address]. tel:[phone] Referring Provider: Shikha Grimm [address] [place] [address] [address], [address]. tel:[phone] [facility] [address] [place] [address], [id number], tel:[phone] [facility] No Information 2 [facility]. [address] [place] [address], [address]. tel:[phone] Primary Practice Provider: Abhishek Griggs, [address] [place] [address] [address] [facility], [place], [address]. tel:[phone] erring Provider: Shikha Grimm [address], [address]. tel:[phone] Office Visit Level IV [facility], [address] [place] [address], [id number], tel:[phone] [facility] Follow Up of Fibromyalgia Syndrome (chief complaint)Rhe umatoid Arthritis (chief complaint) Immunosuppre ssionSeropos itive Rheumatoid ArthritisFib romyalgiaBod y mass index (BMI) 39.0-39.9, adultMethotr exate, group home, current useBody mass index (BMI) 40.0-44.9, adultFatigue 2 Amador Carrillo. [address] [place] [address], [id number], . tel:[phone] Referring Provider: Shikha Grimm, [address] [place] [address] [address], [address]. tel:[phone] [facility] [address] [place] [address], [id number], [place] tel:[phone] [facility]. No Information 2 [facility]. [address] [place] [address], [address]. tel:[phone] Referring Provider: Shikha Grimm [address] [place] [address] [address], [address]. tel:[phone] [facility], [address] [place] [address], [id number], [place] tel:[phone] [facility].. No Information 2 [facility]. [address] [place] [address], [address]. tel:[phone] Referring Provider: Shikha Grimm [address] [place] [address] [address], [address]. tel:[phone] Office Visit Level IV [facility] [address] [facility], [place], [place], [id number], [place] tel:[phone] [facility] Follow Up of Fibromyalgia Syndrome (chief complaint)Rhe umatoid Arthritis (chief complaint) Immunosuppre ssionSeropos itive Rheumatoid ArthritisFib romyalgiaBod y mass index (BMI) 39.0-39.9, adultMethotr exate, group home, current useFatigue 2 [facility]. [address], [address], [place], [address]. tel:[phone] Primary Practice Provider: Abhishek Griggs, [address] [place] [address] [address] [facility], [place], [address]. tel:[phone] erring Provider: Shikha Grimm, [address] [place] [address] 36 E [facility] 2[place], [address]. tel:[phone] [facility] .[facility].., [address], [id number], [place] tel:[phone] [facility].. No Information 2 [facility]. [address], [address], [place], [address]. tel:[phone] Referring Provider: Shikha Grimm, [address] [place] [address] [address], [place], [address]. tel:[phone] [facility] MGMT SRVC 20 MIN [facility] [address] [facility] [address] [place] [address], [id number], [place] tel:[phone] [facility], .S.. No Information 2 [facility]. [address], [address], [place], [address]. tel:[phone] Referring Provider: Shikha Grimm [address] [place] [address] [address], [address]. tel:[phone] Office Visit Level IV [facility] [address] [place] [address], [id number], [place] tel:[phone] [facility] 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 [address], [address], [address]. tel:[phone] Primary Practice Provider: Abhishek Griggs, [address] [place] [address] [address] [facility], [place], [address]. tel:[phone] erring Provider: Shikha Grimm, [address] [place] [address] [address], [place], [address]. tel:[phone] [facility] [address] [place] [address], [id number], [place] tel:[phone] [facility] No Information 1 [facility]. [address], [address], [address]. tel:[phone] Referring Provider: Shikha Grimm, [address] [place] [address] [address], [address]. tel:[phone] Office Visit Level IV [facility] [address] [place] [address], [id number], [place] tel:[phone] [facility] Follow Up of Fibromyalgia Syndrome (chief complaint)Rhe umatoid Arthritis (chief complaint) Immunosuppre ssionSeropos itive Rheumatoid ArthritisFib romyalgiaBod y mass index (BMI) 40.0-44.9, adultMethotr exate, group home, current useBody mass index (BMI) 39.0-39.9, adultOther fatigue Jan- 1 [facility]. [address], [address], [place], [address]. tel:[phone] Referring Provider: Shikha Grimm [address], [place], [address]. tel:[phone] [facility] [address] [address] [place] [address], [id number], tel:[phone] [facility] No Information 1 [facility]. [address], [address], [place], [address]. tel:[phone] Referring Provider: Shikha Grimm [facility], [address]. tel:[phone] [facility] [address] [address] [place] [address], [id number], [place] tel:[phone] [facility] No Information 1 [facility]. [address], [address], [place], [address]. tel:[phone] Referring Provider: Shikha Grimm [facility], [address]. tel:[phone] [facility] [address] [address] [place] [address], [id number], [place] tel:[phone] [facility]. No Information 1 [facility]. [address], [address], [place], [address]. tel:[phone] Referring Provider: Shikha Grimm [facility], [address]. tel:[phone] [facility] [address], [id number], [place] tel:[phone] [facility] Follow Up of Fibromyalgia Syndrome (chief complaint)Rhe umatoid Arthritis (chief complaint) Immunosuppre ssionSeropos itive Rheumatoid ArthritisFib romyalgiaBod y mass index (BMI) 40.0-44.9, adultMethotr exate, group home, current use 0 1 [facility]. [address], [address], [place], [address]. tel:[phone] Office Visit Level IV [facility], [address] [place] [address], [id number], [place] tel:[phone] [facility], .S.. No Information 1 Shira Sloan. [address], [facility] 100, [place], [place], [id number]. tel:[phone] Referring Provider: Shikha Grimm, [facility], [address]. tel:[phone] [facility].., [address] [place] [address], [id number], [place] tel:[phone] [facility].. Follow Up of Fibromyalgia Syndrome (chief complaint)Rhe umatoid Arthritis (chief complaint) Immunosuppre ssionSeropos itive Rheumatoid ArthritisFib romyalgiaFat igueBody mass index (BMI) 40.0-44.9, adultMethotr exate, group home, current use 0 1 [facility]. [address], [address], [place], [address]. tel:[phone] Office Visit Level IV [facility] [address], [id number], [place] tel:[phone] [facility] Follow Up of Fibromyalgia Syndrome (chief complaint)Rhe umatoid Arthritis (chief complaint) Immunosuppre ssionSeropos itive Rheumatoid ArthritisFib romyalgiaFat igueMethotre xate, group home, current useBody mass index (BMI) 40.0-44.9, adult 1 [facility]. [address], [address]. tel:[phone] Primary Practice Provider: Abhishek Griggs, [address] [place] [address] [address] [facility], [place], [address]. tel:[phone] erring Provider: Shikha Grimm, [address] [place] [address] 36 [address] [facility] 2[place], [address]. tel:[phone] [facility], [address] [place] [address], [id number], tel:[phone] [facility].. No Information 0 [facility]. [address] [place] [address], [address]. tel:[phone] Referring Provider: Shikha Grimm, [address] [place] [address], [address]. tel:[phone] [facility], [address] [place] [address], [id number], tel:[phone] [facility] Follow Up of Fibromyalgia Syndrome (chief complaint)Rhe umatoid Arthritis (chief complaint) Immunosuppre ssionSeropos itive Rheumatoid ArthritisFib romyalgiaFat igueBody mass index (BMI) 45.0-49.9, adultMethotr exate, continuous churn buttermaker, current useBody mass index (BMI) 40.0-44.9, adult 0 Amador Carrillo. [address] [place] [address], [id number], . tel:[phone] Office Visit Level IV [facility] [address], [id number], [place] tel:[phone] [facility] No Information 0 [facility]. [address] [place] [address], [address]. tel:[phone] Referring Provider: Shikha Grimm, [facility], [address]. tel:[phone] [facility], [address] [place] [address], [id number], [place] tel:[phone] [facility] No Information 0 [facility]. [address] [place] [address], [address]. tel:[phone] Referring Provider: Shikha Grimm [address] [place] [address] [address], [address]. tel:[phone] [facility], [address] [place] [address], [id number], [place] tel:[phone] [facility] Follow Up of Fibromyalgia Syndrome (chief complaint)Rhe umatoid Arthritis (chief complaint) Immunosuppre ssionSeropos itive Rheumatoid ArthritisFib romyalgiaFat igueBody mass index (BMI) 45.0-49.9, adultMethotr exate, continuous churn buttermaker, current use Apr-0 0 Amador Carrillo. [address], [id number], [place]. tel:[phone] Office Visit Level IV [facility], [address] [place] [address], [id number], [place] tel:[phone] [facility] No Information 0 0 [facility]. [address] [place] [address], [address]. tel:[phone] Referring Provider: Shikha Grimm, [address] [place] [address] [address], [place], [address]. tel:[phone] [facility]., [address] [place] [address], [id number], tel:[phone] [facility].. No Information 0 [facility]. [address], [facility] 100, [place], [address]. tel:[phone] Referring Provider: Shikha Grimm, [address] [place] [address] [address], [place], [address]. tel:[phone] [facility], [address] [place] [address], [id number], [place] tel:[phone] [facility]. No Information 0 [facility]. [address], [facility] 100, [place], [address]. tel:[phone] Referring Provider: Shikha Grimm, [address] [place] [address] [address], [place], [address]. tel:[phone] Office Visit Level IV [facility]., [address] [place] [address], [id number], [place] tel:[phone] [facility] Follow Up of Fibromyalgia Syndrome (chief complaint)Rhe umatoid Arthritis (chief complaint) Immunosuppre ssionSeropos itive Rheumatoid ArthritisFib romyalgiaMet hotrexate, continuous churn buttermaker, current useBody mass index (BMI) 45.0-49.9, adultFatigue Apr-201 9 [facility]. [address], [facility] 100, [place], [address]. tel:[phone] Primary Practice Provider: Abhishek Griggs, [address] [place] [address] [address] [facility], [place], [address]. tel:[phone] erring Provider: Shikha Grimm, [address] [place], [place] [address]y [address], [address]. tel:[phone] Office Visit Level IV [facility], [address] [place] [address], [id number], tel:[phone] [facility]. Follow Up of Fibromyalgia Syndrome (chief complaint)Rhe umatoid Arthritis (chief complaint) Immunosuppre ssionSeropos itive Rheumatoid ArthritisFib romyalgiaBod y mass index (BMI) 40.0-44.9, adultMethotr exate, continuous churn buttermaker, current use 9 [facility]. [address] [place] [address], [address]. tel:[phone] Primary Practice Provider: Abhishek Griggs, [address] [place] [address] E [facility], [place], [address]. tel:[phone] erring Provider: Shikha Grimm, [address] [place] [address] [address], [address]. tel:[phone] Office Visit Level IV [facility], [address] [place] [address], [id number], tel:[phone] [facility]. Follow Up of Fibromyalgia Syndrome (chief complaint)Rhe umatoid Arthritis (chief complaint) Immunosuppre ssionSeropos itive Rheumatoid ArthritisFib romyalgiaBod y mass index (BMI) 40.0-44.9, adultMethotr exate, continuous churn buttermaker, current use 9 [facility]. [address] [place] [address], [address]. tel:[phone] Primary Practice Provider: Abhishek Griggs, [address] [place] [address] 36 [address] [facility], [place], [address]. tel:[phone] erring Provider: Shikha Grimm, [address] [place] [address]y [address], [place], [address]. tel:[phone] Office Visit Level IV [facility], [address], [id number], tel:[phone] [facility]. Follow Up of Fibromyalgia Syndrome (chief complaint)Rhe umatoid Arthritis (chief complaint) Immunosuppre ssionSeropos itive Rheumatoid ArthritisFib romyalgiaMet hotrexate, continuous churn buttermaker, current useBody mass index (BMI) 40.0-44.9, adult 8 [facility]. [address], [place], [address]. tel:[phone] Primary Practice Provider: Abhishek Griggs, [address] [place] [address], [place], [address]. tel:[phone] erring Provider: Shikha Grimm [address] [place] [address] [address], [address]. tel:[phone] Office Visit Level IV [facility] [address] [place] [address], [place], [place], [id number], [place] tel:[phone] [facility]. Follow Up of Fibromyalgia Syndrome (chief complaint)Rhe umatoid Arthritis (chief complaint) Seropositive Rheumatoid ArthritisFib romyalgiaBod y mass index (BMI) 45.0-49.9, adultMethotr exate, continuous churn buttermaker, current useImmunosup pression 8 [facility]. [address], [place], [address]. tel:[phone] Primary Practice Provider: Abhishek Griggs [address] [place] [address], [place], [address]. tel:[phone] erring Provider: Shikha Grimm [address] [place] [address] [address], [address]. tel:[phone] Office Visit Level I [facility], [facility] [address] [facility] [address], [place], [place], [id number], [place] tel:[phone] [facility]. Seropositive Rheumatoid Arthritis [facility]. [address], [facility] 100, [place], [address]. tel:[phone] Referring Provider: Shikha Grimm, [address] [place] [address] [address], [place], [address]. tel:[phone] [facility] [address] [address], [place], [place], [id number], [place] tel:[phone] [facility] No Information 8 [facility]. [address], [place] [address], [place], [address]. tel:[phone] Referring Provider: Shikha Grimm, [address] [place] [address] [address], [place], [address]. tel:[phone] Office Visit Level IV [facility], [address] [address], [place], [place], [id number], [place] tel:[phone] [facility] Follow Up of Fibromyalgia Syndrome (chief complaint)Rhe umatoid Arthritis (chief complaint) Seropositive Rheumatoid ArthritisFib romyalgiaBod y mass index (BMI) 45.0-49.9, adultCurrent Use of Steroid MedicationMe thotrexate, group home, current useFatigue [facility]. [address], [place] [address], [place], [address]. tel:[phone] Primary Practice Provider: Abhishek Griggs, [address] [place] [address] [address] [facility], [place], [address]. tel:[phone] erring Provider: Shikha Grimm, [address] [place] [address] [address], [place], [place], [address]. tel:[phone] Office Visit Level IV [facility] [address], [id number], [place] tel:[phone] [facility] Fibromyalgia Syndrome (chief complaint)Rhe umatoid Arthritis (chief complaint) Seropositive Rheumatoid ArthritisFib romyalgiaCur rent Use of Steroid MedicationMe thotrexate, group home, current useBody mass index (BMI) 45.0-49.9, adult Dec- 7 [facility]. [address] [facility], [address], [place], [address]. tel:[phone] Primary Practice Provider: Abhishek Griggs, [address] [place] [address] [address] [facility], [place], [address]. tel:[phone] erring Provider: Shikha Grimm, [address] [place] [address] [address] [facility] [place], [address]. tel:[phone] Office Visit Level IV [facility] [address] [place] [address], [id number], [place] tel:[phone] [facility] Fibromyalgia Syndrome (chief complaint)Rhe umatoid Arthritis (chief complaint) Seropositive Rheumatoid ArthritisFib romyalgiaMet hotrexate, continuous churn buttermaker, current useCurrent Use of Steroid Medication 7 [facility]. [address] [place] [address], [address], [address]. tel:[phone] Primary Practice Provider: Abhishek Griggs, [address] [place] [address] [address] [facility], [place], [address]. tel:[phone] erring Provider: Shikha Grimm [address] [place] [address] [address], [address]. tel:[phone] New Office Visit Level IV [facility] [address] [place] [address], [id number], [place] tel:[phone] [facility] Joint Pain (chief complaint) Rheumatoid Factor PositiveArth ralgiaFatigu e 7 [facility]. [address], [address], [place], [address]. tel:[phone] Primary Practice Provider: Abhishek Griggs, [address] [place] [address] [address] [facility], [place], [address]. tel:[phone] erring Provider: Shikha Grimm, [address] [place] [address] [address], [place], [address]. tel:[phone] [facility] [address] [place], [place] [address]er [facility] hospit[facility] [address] [place] [address], [id number], tel:[phone] [facility] No Information 7 [facility]. [address], [address], [place], [address]. tel:[phone] Referring Provider: Shikha Grimm, [address] [place] [address] [address], [place], [address]. tel:[phone] Family History Family Member Type Diagnosis Age At Onset Mother Problem (finding) Diabetes mellitus Mother Problem (finding) Arthritis Problem (finding) Family history of hyper tension Immunizations Vaccine Date Status Comments Flu (split) (3 yrs or older) administered Source: Other Provider Flu (split) (3 yrs or older) administered Note: aprox date ; Source: Public Agency Payers Payer name Insurance type Covered democrat ID Authoriza tibridget(s) [facility] [id number] Medicare [id number] Social History Type Description Quantity Date Captured [...] manageme nt education, guidance, and counseling completed Patient Education Hip Pain: Care Instruct ions [...] Future Order: Lab Order CBC With Differential/Platelet (409724), Ordered on: Ordered Future Order: Lab Order Comp. Me tabolic Panel (14) ([id number]), Ordered on: Ordered Future Order: Lab Order C-Reacti ve Protein, Quant (234592), Ordered on: Ordered Future Order: Lab Order Sediment ation Rate-Westergren (031648), Ordered on: Ordered Future Order: Lab Order Acute He patitis Panel (304715), Ordered on: Ordered Future Order: Lab Order CBC With Differential/Platelet (135006), Ordered on: Ordered Future Order: Lab Order C-Reacti ve Protein, Quant (018101), Ordered on: Ordered Future Order: Lab Order Comp. Me tabolic Panel (14) (175670), Ordered on: Ordered Future Order: Lab Order QuantiFE GÓMEZ TB Gold Plus(in Tube) (632206), Ordered on: Ordered Future Order: Lab Order Sediment ation Rate-Westergren (439885), Ordered on: Ordered Future Order: Lab Order CBC With Differential/Platelet (913213), Ordered on: Ordered Future Order: Lab Order Comp. Me tabolic Panel (14) (393862), Ordered on: Ordered Future Order: Lab Order C-Reacti ve Protein, Quant (115233), Ordered on: Ordered Future Order: Lab Order Sediment ation Rate-Westergren (362731), Ordered on: Ordered Future Order: Lab Order QuantiFE GÓMEZ TB Gold Plus(in Tube) (535362), Ordered on: Ordered Future Order: Lab Order CBC With Differential/Platelet (772979), Ordered on: Ordered Future Order: Lab Order Comp. Me tabolic Panel (14) (498968), Ordered on: Ordered Future Order: Lab Order C-Reacti ve Protein, Quant (018861), Ordered on: Ordered Future Order: Lab Order Sediment ation Rate-Westergren (776677), Ordered on: Ordered Future Order: Lab Order Hepatiti s Panel (4) (138861), Ordered on: Ordered Future Order: Lab Order CBC With Differential/Platelet (536127), Ordered on: Ordered Future Order: Lab Order Comp. Me tabolic Panel (14) (537561), Ordered on: Ordered Future Order: Lab Order C-Reacti ve Protein, Quant (920273), Ordered on: Ordered Future Order: Lab Order Sediment ation Rate-Westergren (656273), Ordered on: Ordered Future Order: Lab Order Hepatiti s Panel (4) (038414), Ordered on: Ordered Future Order: Lab Order CBC With Differential/Platelet (315191), Ordered on: Ordered Future Order: Lab Order Comp. Ut tabolic Panel (14) (662151), Ordered on: Ordered Future Order: Lab Order C-Reacti ve Protein, Quant (873116), Ordered on: Ordered Future Order: Lab Order Sediment ation Rate-Westergren (489049), Ordered on: Ordered Future Order: Lab Order CBC With Differential/Platelet (982041), Ordered on: Ordered Future Order: Lab Order Comp. Ut tabolic Panel (14) (901171), Ordered on: Ordered Future Order: Lab Order C-Reacti ve Protein, Quant (651279), Ordered on: Ordered Future Order: Lab Order Sediment ation Rate-Westergren (002927), Ordered on: Ordered Future Order: Lab Order Hepatiti s Panel (4) (025527), Ordered on: Ordered Future Order: Lab Order Quanti FERON - TB Gold IT Plus (Theratest) (TBGP), Ordered on: Ordered Future Order: Lab Order CBC With Differential/Platelet (664824), Ordered on: Ordered Future Order: Lab Order C-Reacti ve Protein, Quant (093048), Ordered on: Ordered Future Order: Lab Order Comp. Me tabolic Panel (14) (785036), Ordered on: Ordered Future Order: Lab Order Sediment ation Rate-Westergren (134522), Ordered on: Ordered Future Order: Lab Order CBC With Differential/Platelet (913879), Ordered on: Ordered Future Order: Lab Order Comp. Me tabolic Panel (14) (825877), Ordered on: Ordered Future Order: Lab Order C-Reacti ve Protein, Quant (574219), Ordered on: Ordered Future Order: Lab Order Sediment ation Rate-Westergren (284441), Ordered on: Ordered Future Order: Lab Order Hepatiti s Panel (4) (962958), Ordered on: Ordered Future Order: Lab Order QuantiFE GÓMEZ TB Gold (In Tube) (474077), Ordered on: Ordered Future Order: Lab Order CBC With Differential/Platelet (913660), Ordered on: Ordered Future Order: Lab Order Comp. Ut tabolic Panel (14) (692835), Ordered on: Ordered Future Order: Lab Order C-Reacti ve Protein, Quant (604756), Ordered on: Ordered Future Order: Lab Order Sediment ation Rate-Westergren (777088), Ordered on: Ordered Future Order: Lab Order CBC With Differential/Platelet (177013), Ordered on: Ordered Future Order: Lab Order Comp. Me tabolic Panel (14) (360004), Ordered on: Ordered Future Order: Lab Order C-Reacti ve Protein, Quant (487244), Ordered on: Ordered Future Order: Lab Order Sediment ation Rate-Westergren (868435), Ordered on: Ordered Future Order: Lab Order Hepatiti s Panel (4) (837853), Ordered on: Ordered Future Order: Lab Order Quanti FERON - TB Gold IT Plus (Theratest) (TBGP), Ordered on: Ordered Future Order: Lab Order CBC With Differential/Platelet (916369), Ordered on: Ordered Future Order: Lab Order Comp. Me tabolic Panel (14) (287069), Ordered on: Ordered Future Order: Lab Order C-Reacti ve Protein, Quant (999673), Ordered on: Ordered Future Order: Lab Order Sediment ation Rate-Westergren (658344), Ordered on: Ordered Future Order: Lab Order CBC With Differential/Platelet (689347), Ordered on: Ordered Future Order: Lab Order Comp. Me tabolic Panel (14) (214697), Ordered on: Ordered Future Order: Lab Order C-Reacti ve Protein, Quant (040643), Ordered on: Ordered Future Order: Lab Order Sediment ation Rate-Westergren (812293), Ordered on: Ordered Future Order: Radiology Order Ch est X-ray, AP/Lat (2 Views) (00927), Ordered on: Ordered Future Order: Lab Order CBC With Differential/Platelet (540102), Ordered on: Ordered Future Order: Lab Order Comp. Ut tabolic Panel (14) (555766), Ordered on: Ordered Future Order: Lab Order Hepatiti s Panel (4) (197223), Ordered on: Ordered Future Order: Lab Order C-Reacti ve Protein, Quant (330001), Ordered on: Ordered Future Order: Lab Order Sediment ation Rate-Westergren (897924), Ordered on: Ordered Future Order: Lab Order Quanti FERON - TB Gold IT Plus (Theratest) (TBGP), Ordered on: Ordered Future Order: Lab Order C-Reacti ve Protein, Quant (004975), Ordered on: Ordered Future Order: Lab Order CBC With Differential/Platelet (521966), Ordered on: Ordered Future Order: Lab Order Comp. Ut tabolic Panel (14) (814811), Ordered on: Ordered Future Order: Lab Order Sediment ation Rate-Westergren (680039), Ordered on: Ordered Future Order: Lab Order CBC With Differential/Platelet (002246), Ordered on: Ordered Future Order: Lab Order Comp. Me tabolic Panel (14) (565562), Ordered on: Ordered Future Order: Lab Order C-Reacti ve Protein, Quant (329802), Ordered on: Ordered Future Order: Lab Order Sediment ation Rate-Westergren (244613), Ordered on: Ordered Future Order: Lab Order CBC With Differential/Platelet (720067), Ordered on: Ordered Future Order: Lab Order Comp. Ut tabolic Panel (14) (103031), Ordered on: Ordered Future Order: Lab Order C-Reacti ve Protein, Quant (835007), Ordered on: Ordered Future Order: Lab Order Sediment ation Rate-Westergren (733144), Ordered on: Ordered Future Order: Radiology Order Ch est X-ray, AP/Lat (2 Views) (27433), Ordered on: Ordered Future Order: Lab Order CBC With Differential/Platelet (066028), Ordered on: Ordered Future Order: Lab Order Comp. Me tabolic Panel (14) (453692), Ordered on: Ordered Future Order: Lab Order C-Reacti ve Protein, Quant (028445), Ordered on: Ordered Future Order: Lab Order Sediment ation Rate-Westergren (414296), Ordered on: Ordered Future Order: Lab Order Hepatiti s Panel (4) (647192), Ordered on: Ordered Future Order: Lab Order QuantiFE GÓMEZ- TB Gold IT (Theratest) (TBQ), Ordered on: Ordered Future Order: Lab Order CBC With Differential/Platelet (144464), Ordered on: Ordered Future Order: Lab Order Comp. Me tabolic Panel (14) (519221), Ordered on: Ordered Future Order: Lab Order C-Reacti ve Protein, Quant (457514), Ordered on: Ordered Future Order: Lab Order Sediment ation Rate-Westergren (487688), Ordered on: Ordered Future Order: Lab Order C-Reacti ve Protein, Quant (587734), Ordered on: Ordered Future Order: Lab Order Sediment ation Rate-Westergren (911993), Ordered on: Ordered Future Order: Lab Order CBC With Differential/Platelet (535224), Ordered on: Ordered Future Order: Lab Order Comp. Me tabolic Panel (14) (667692), Ordered on: Ordered Future Order: Lab Order CBC With Differential/Platelet (954143), Ordered on: Ordered Future Order: Lab Order Comp. Me tabolic Panel (14) (956153), Ordered on: Ordered Future Order: Lab Order Cyclic C itrullinated Peptide-4P (CCP4P), Ordered on: Ordered Future Order: Lab Order EL-NADEEM/9 HIEU Sulema Method IgG (DHD2KUS), Ordered on: Ordered Future Order: Lab Order Rheumato id Factor/3 IgM, IgG, IgA (RF3), Ordered on: Ordered Future Order: Radiology Order Ch est X-ray; AP/Lat (2 views) (55565), Ordered on: Ordered Future Order: Radiology Order Gray nd X-ray; Limited (2 views) (62103), Ordered on: Ordered Future Order: Radiology Order Fo ot X-ray; Complete (3+ views) (16613), Ordered on: Ordered Future Order: Lab Order Antinucl ear Antibodies, NADEEM, IFA (623095), Ordered on: Ordered Future Order: Lab Order CBC With Differential/Platelet (024409), Ordered on: Ordered Future Order: Lab Order Comp. Me tabolic Panel (14) (044889), Ordered on: Ordered Future Order: Lab Order C-Reacti ve Protein, Quant (863633), Ordered on: Ordered Future Order: Lab Order Creatine Kinase,Total,Serum (690368), Ordered on: Ordered Future Order: Lab Order Hepatiti s Panel (4) (291296), Ordered on: Ordered Future Order: Lab Order Sediment pauline [place] (343191), Ordered on: Ordered Future Order: Lab Order Uric Aci d, Serum (999428), Ordered on: Ordered History Of Present Illness [...] an review Related to Seropositive Rheumatoid Arthritis Lifestyle education regarding di et Related to Body mass index [BMI] 37.0-37.9, adult With next lab draw w e will recheck/update the patient's TB and hepatitis status Related to Other fatigue 1. H & P consistent with this [...] an review Related to Seropositive Rheumatoid Arthritis Lifestyle education [...] to Immune deficiency due to current drug 1) Hold with infecti ons2) Hold 2 weeks pre and post op for surgeries3) Labs every 8-12 weeks. Related to High Risk Medication Use 1. Continue Arava. 2 . Inflectra was [...] has taken/tried hydrocodone/APAP PRN Related to Fibromyalgia Update Q Related to Other fatigue 1) [...] current drug 1. Continue Arava. 2 . Continue IV [...] week and then stop. Related to Methotrexate, continuous churn buttermaker, current use 1. Patient to take 0 [...] and hepatitis status Related to Fatigue 1. Continue/refill M TX & folic acid2. [...] has had elevated LFTS Related to Methotrexate, group home, current use 1. Hold if the patie nt develops infection. 2. Avoid live vaccines while on this medication. 3. No recent serious infections4. No infusion reactions 5. Also hold this medication perioperatively if the patient is going to have a surgical procedure Related to Immunosuppression Lifestyle education regarding di et Related to Body mass index [BMI] 40.0-44.9, adult 1. Hold if the patie [...] has had elevated LFTS Related to Methotrexate, group home, current use 1. H & P consistent [...] hepatitis and QTB Related to Other fatigue Change mtx to inject able. She does not tolerate the pills well due to SE. Related to Methotrexate, group home, current use 1. Last dose of IV [...] cramping. Related to Seropositive Rheumatoid Arthritis 1. H [...] stopped ibuprofen thinking it was hurting her [id number]. She is on an SSRI. Treating anxiety/depression [...] stopped ibuprofen thinking it was hurting her [id number]. She is on an SSRI. Treating anxiety/depression can help improve myofascial pain 11. 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 Last dose of IV [...] stopped ibuprofen thinking it was hurting her [id number]. She is on an SSRI. Treating anxiety/depression can help improve myofascial pain 11. She is on hydrocodone/APAP PRN Related to Fibromyalgia With next lab draw w e will recheck/update the patient's TB and hepatitis status Related to Fatigue Her last dose as . It has been held because her PCP diagnosed her with having RMSF Related to Immunosuppression With next lab draw w e will recheck/update the patient's TB and hepatitis status Related to Fatigue Her last dose as . 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 H & P [...] stopped ibuprofen thinking it was hurting her [id number]. She is on an SSRI. Treating anxiety/depression can help improve myofascial pain 11. 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 Last dose of IV [...] stopped ibuprofen thinking it was hurting her [id number]. She is on an SSRI. Treating anxiety/depression [...] given to the patient. Related to Methotrexate, continuous churn buttermaker, current use 1. She thinks Inflec tra is working now. 2. She no longer takes steroids due to her diabetes. 3. Continue MTX/folic acid 4. She is seeing podiatry 5. Follow up in 3-4 months. 6. Refill medicine. 7. She will receive Infletra today.8. Prognosis is fair. Related to Seropositive Rheumatoid Arthritis Lifestyle education [...] is fair. Related to Seropositive Rheumatoid Arthritis Improved Related to Fatig ue 1. CBC and CMP every 8-12 weeks to monitor for toxicity. 2. Take folate supplements daily.3. No recent serious infections.4. 05/13/19 labs were fine. 5. Standing lab order was renewed & given to the patient. Related to Methotrexate, group home, current use 1. H & P consistent [...] stopped ibuprofen thinking it was hurting her [id number]. She is on an SSRI. Treating anxiety/depression can help improve myofascial pain 11. She is on hydrocodone/APAP PRN Related to Fibromyalgia Check TB status, hep atitis panel, and CXR Related to Fatigue Stop Humira per patient's reques t. Related [...] stopped ibuprofen thinking it was hurting her [id number]. She is on an SSRI. Treating anxiety/depression can help improve myofascial pain 11. She is on hydrocodone/APAP PRN Related to Fibromyalgia 1. CBC and CMP every 8-12 weeks to monitor for toxicity. 2. Take folate supplements daily.3. No recent serious infections.4. 03/18/2019 labs were fine. 5. Standing lab order was renewed & given to the patient. Related to Methotrexate, continuous churn buttermaker, current use Lifestyle education regarding di et [...] given to the patient. Related to Methotrexate, group home, current use 1. H & P consistent [...] stopped ibuprofen thinking it was hurting her [id number]. She is on an SSRI. Treating anxiety/depression can help improve myofascial pain 11. She is on hydrocodone/APAP PRN Related to Fibromyalgia 1. She seems stable today. She is [...] stopped ibuprofen thinking it was hurting her [id number]. She is on an SSRI. Treating anxiety/depression can help improve myofascial pain 11. She is on hydrocodone/APAP PRN Related to Fibromyalgia 1. CBC and CMP every 8-12 weeks to monitor for toxicity. 2. Take folate supplements daily.3. No recent serious infections.4. 08/15/2018 labs were fine. Related to Methotrexate, continuous churn buttermaker, current use 1. Hold if the patie nt develops infection. 2. Avoid live vaccines while on this medication. 3. No recent serious infections4. No injection site reactions. 5. Also hold this medication perioperatively if the patient is going to have a surgical procedure. Related to Immunosuppression 1. Hold if the patie nt develops [...] stopped ibuprofen thinking it was hurting her [id number]. She is on an SSRI. Treating anxiety/depression can help improve myofascial pain 11. She is on hydrocodone/APAP PRN Related to Fibromyalgia 1. CBC and CMP every 8-12 weeks to monitor for toxicity. 2. Take folate supplements daily.3. No recent serious infections.4. 03/20/2018 labs were fine. Related to Methotrexate, group home, current use 1. She is preparing to [...] Check labs Related to Seropositive Rheumatoid Arthritis Dietary needs education Related to Body mass [...] 09/12/2017 labs were fine. Related to Methotrexate, continuous churn buttermaker, current use 1. H & P consistent [...] stopped ibuprofen thinking it was hurting her [id number]. She is on an SSRI. Treating anxiety/depression [...] stopped ibuprofen thinking it was hurting her [id number]. She is on an SSRI. Treating anxiety/depression can help improve myofascial pain 11. She is on hydrocodone/APAP PRN Related to Fibromyalgia 1. CBC and CMP every 8-12 weeks to monitor for toxicity. 2. Take folate supplements daily.3. No recent serious infections.4. 08/08/2017 labs were fine. Related to Methotrexate, continuous churn buttermaker, current use 1. Continue MTX/foli c acid.2. [...] Related to Current Use of Steroid Medication Check TB status, hep atitis panel, and CXR. Related to Fatigue 1. H & P [...] stopped ibuprofen thinking it was hurting her [id number]. She is on an SSRI. Treating anxiety/depression [...] 20 mg/week. See above. Related to Methotrexate, group home, current use Dietary management e ducation, guidance, and counseling [...] stopped ibuprofen thinking it was hurting her [id number]. She is on an SSRI. Treating anxiety/depression can help improve myofascial pain 11. She is on hydrocodone/APAP PRN Related to Fibromyalgia Lower today to 2.5 mg/day. Relat ed to Current Use of Steroid Medication 1. CBC and CMP every 8-12 weeks to monitor for toxicity. 2. Take folate supplements daily.3. No recent serious infections. Related to Methotrexate, continuous churn buttermaker, current use 1. Continue MTX/foli c acid. 2. Lower [...]
[2023-09-25 11:45] VITALS: BP 132/80; PULSE 82; RESP 18; TEMP 36.6; O2SAT 98; BMI 34.9
--- NOTE | 2023-09-25 12:09 | A.OFFVIS_ITS ---
[facility] Pain Management SOAP Note Subjective:: Patient is a pleasant 58-year-old female who presents today for 1 month follow- up. Today she rates her pain a 10 out of 10. Patient states her pain is all throughout her low back and radiating down her entire right leg. Patient states that she feels like her last lumbar epidural has officially worn off. Patient did previously have 1 in the middle of July that did provide 75% relief up until the last week or 2. Patient states that during that time when this injection was working she was much more functional and had decreased pain symptoms overall. Today she states she is back to her baseline with aching, throbbing sensation with numbness and tingling into the lower extremity. Pat lucille states that it is affecting her ability to perform activities of daily living such as cooking and cleaning and even affecting her sleep. Patient is prescribed gabapentin and [place] from her PCP. Her Pola has been reviewed and is appropriate. Review of Systems: General: No recent weight changes, no fever, no sleep disturbances Respiratory: No cough, no shortness of air, no recurring pulmonary infections Cardiovascular/peripheral vascular: No chest pain, no palpitations, no edema, no shortness of breath Gastrointestinal: No new onset incontinence, normal bowel movements reported Genitourinary: No new onset incontinence Musculoskeletal: Low back pain, right leg pain Psychiatric: [Normal mood/affect] Neurological: [Denies weakness in extremities], [denies balance issues] Objective:: Physical Exam: General: Alert and oriented x3, no acute distress, pleasant and cooperative Lungs: Respirations even and unlabored, symmetrical chest expansion Eyes: PERRL Musculoskeletal: Flexion and extension of lumbar [spine] somewhat guarded secondary to pain, [antalgic gait noted] positive right leg raise Neurological: Speech clear, no gross sensory deficit Assessment:: Degenerative disc disease of lumbar spine with lumbar radiculopathy symptoms Plan:: Patient is experiencing significant pain in her low back with radiating numbness and tingling into her right lower extremity. Patient did have limited range of motion of her lumbar spine along with a positive right leg raise. I discussed with the patient due to having 75% relief lasting a month with her last lumbar epidural that she may benefit from repeat of this injection. Risk and benefits were discussed with the patient and she would like to proceed forward with this plan of care. Patient has tried and failed conservative therapy including continued at home stretching and exercise between injections up until now. Patient is currently on Xarelto by Khadra Grimm's office for A-fib. I have counseled the patient that we will have to reach out to their office to confirm she can stop this medication prior to this injection. Patient agrees with this plan of care. Patient will be scheduled for a LESI L4-L5 under fluoroscopy. Patient has been instructed to contact the clinic with any concerns before the next appointment. Dr. Veliz has reviewed this note and agrees with this plan of care. This note was dictated using voice recognition software and make contain errors or omissions. [facility] Disclaimer: The information contained in this section may have been updated after the patient was seen, as this information can be updated by other users. Medical History Pulmonary histoplasmosis granuloma Solitary pulmonary nodule Lymphadenopathy Pulmonary histoplasmosis CHEY (obstructive sleep apnea) Fatigue Atrial fibrillation HTN (hypertension) LV dysfunction Surgical History History of surgery on lower extremity History of arthroscopy of shoulder Family History Other Hypertension Social History Smoking Status: Never smoker alcohol intake: never counseling provided: none substance use type: denies use current occupational status: other Travel in the last 8 weeks: None household members: significant other housing: house current occupational exposures/hazards: No caffeine: No
== END 2023-09-25 23:59 | disposition home or self-care (01) ==
LOC: SC.PAIN 11:32
PROVIDERS: PCP Internal Medicine Adolescent Medicine; Visit Provider Nurse Practitioner Family
DX: M51.16 Intervertebral disc disorders with radiculopathy, lumbar region (principal)
CPT/HCPCS: 99212; G0463

== ENCOUNTER 2023-10-24 08:54 | Day surgery (SDC) | payer OTHER, MEDICARE, SELFPAY ==
--- OUTSIDE RECORDS SUMMARY | 2023-10-24 08:56 | XMS_ITS | Continuity of Care Document ---
Author Name Unknown Organization [facility] Address [address] [address] Phone Care Team Providers Care General Studies Program Chair Name Role Phone Russell Prabhakar DO Unavailable [...] EL-anti-CCP/2 Dna Antb 1 Stranded Dna Antb [place]/2 Stranded Sm,DATA TECHNICAL LEAD/Sm,SSA,SSB,Scl-70,chrom,centromer Rheumatoid Factor Luis E RF/3 IgM 017 RF/3 IgG/IgA Advance Directives Directive Yes / No Effective Date File Name No Information Encounters Encounter Description Practice Location Reason(s) For Visit Diagnoses Date Provider Providers Copied on Encounter [facility] [address], [place], [place], [id number], [place] tel:[phone] [facility] No Information 4 Vanna Wells. [address] [facility], [address], [place], [address]. tel:[phone] Office Visit Level IV [facility], [address], [id number], [place] tel:[phone] [facility]. Follow Up of Fibromyalgia Syndrome (chief complaint)Rhe umatoid Arthritis (chief complaint) Immune deficiency due to current drugSeroposi tive Rheumatoid ArthritisFib romyalgiaHig h Risk Medication UseBody mass index (BMI) 37.0-37.9, adult 4 [facility]. [address], [place], [address]. tel:[phone] Primary Practice Provider: Abhishek Griggs [address] [place] [address] E [facility], [place], [address]. tel:[phone] erring Provider: Shikha Grimm [address] [place] [address] [address], [address]. tel:[phone] Office Visit Level IV [facility], [address] [place] [address], [place], [place], [id number], [place] tel:[phone] [facility]. Follow Up of Fibromyalgia Syndrome (chief complaint)Rhe umatoid Arthritis (chief complaint) Immune deficiency due to current drugSeroposi tive Rheumatoid ArthritisFib romyalgiaOth er fatigueBody mass index (BMI) 39.0-39.9, adultHigh Risk Medication Use 3 [facility]. [address], [place], [address]. tel:[phone] Primary Practice Provider: Abhishek Griggs [address] [place] [address] E [facility], [place], [address]. tel:[phone] erring Provider: Shikha Grimm [address] [place] [address] [address], [address]. 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 [address] [place] [address], [id number], . tel:[phone] Referring Provider: Shikha Grimm, [address] [place] [address] 36 E [facility] [place], [address]. tel:[phone] Office Visit Level IV [facility], [address] [place] [address], [id number], tel:[phone] [facility] Follow Up of Fibromyalgia Syndrome (chief complaint)Rhe umatoid Arthritis (chief complaint) Seropositive Rheumatoid ArthritisFib romyalgiaBod y mass index (BMI) 39.0-39.9, adultImmune deficiency due to current drugHigh Risk Medication Use Nov- 2 [facility]. [address] [place] [address], [address]. tel:[phone] Referring Provider: Shikha Grimm [address] [place] [address] [address], [address]. tel:[phone] [facility] [address] [place] [address], [id number], tel:[phone] [facility] No Information 2 [facility]. [address] [place] [address], [address]. tel:[phone] Primary Practice Provider: Abhishek Griggs, [address] [place] [address] 36 E [facility], [place], [address]. tel:[phone] erring Provider: Shikha Grimm [address], [address]. tel:[phone] Office Visit Level IV [facility], [address] [place] [address], [id number], tel:[phone] [facility] Follow Up of Fibromyalgia Syndrome (chief complaint)Rhe umatoid Arthritis (chief complaint) Immunosuppre ssionSeropos itive Rheumatoid ArthritisFib romyalgiaBod y mass index (BMI) 39.0-39.9, adultMethotr exate, jail, current useBody mass index (BMI) 40.0-44.9, adultFatigue 2 Amador Carrillo. [address] [place] [address], [id number], . tel:[phone] Referring Provider: Shikha Grimm, [address] [place] [address] [address], [address]. tel:[phone] [facility] [address] [place] [address], [id number], [place] tel:[phone] [facility]. No Information 2 [facility]. [address] [place] [address], [address]. tel:[phone] Referring Provider: Shikha Grimm [address] [place] [address] [address], [address]. tel:[phone] [facility].., [address] [place] [address], [id number], [place] tel:[phone] [facility].. No Information 2 [facility]. [address] [place] [address], [address]. tel:[phone] Referring Provider: Shikha Grimm [address] [place] [address] [address], [address]. tel:[phone] Office Visit Level IV [facility] [address] [facility], [place], [place], [id number], [place] tel:[phone] [facility] Follow Up of Fibromyalgia Syndrome (chief complaint)Rhe umatoid Arthritis (chief complaint) Immunosuppre ssionSeropos itive Rheumatoid ArthritisFib romyalgiaBod y mass index (BMI) 39.0-39.9, adultMethotr exate, longshore equipment operator, current useFatigue 2 [facility]. [address], [address], [place], [address]. tel:[phone] Primary Practice Provider: Abhishek Griggs, [address] [place] [address] 36 E [facility], [place], [address]. tel:[phone] erring Provider: Shikha Grimm, [address] [place] [address] 36 E [facility] [place], [address]. tel:[phone] [facility], [address], [id number], [place] tel:[phone] [facility].. No Information 2 [facility]. [address], [address], [place], [address]. tel:[phone] Referring Provider: Shikha Grimm, [address] [place] [address] [address], [place], [address]. tel:[phone] [facility] SRVC 20 MIN [facility] [address] [facility] [address] [place] [address], [id number], [place] tel:[phone] [facility], .S.. No Information 2 [facility]. [address], [address], [place], [address]. tel:[phone] Referring Provider: Shikha Grimm [address] [place] [address] [address], [address]. tel:[phone] Office Visit Level IV [facility] [address] [place] [address], [id number], [place] tel:[phone] [facility] 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 [address], [address], [address]. tel:[phone] Primary Practice Provider: Abhishek Griggs, [address] [place] [address] 36 E [facility], [place], [address]. tel:[phone] erring Provider: Shikha Grimm, [address] [place] [address] [address], [place], [address]. tel:[phone] [facility] [address] [place] [address], [id number], [place] tel:[phone] [facility] No Information 1 [facility]. [address], [address], [address]. tel:[phone] Referring Provider: Shikha Grimm, [address] [place] [address] [address] [place], [address]. tel:[phone] Office Visit Level IV [facility] [address] [place] [address], [id number], [place] tel:[phone] [facility] Follow Up of Fibromyalgia Syndrome (chief complaint)Rhe umatoid Arthritis (chief complaint) Immunosuppre ssionSeropos itive Rheumatoid ArthritisFib romyalgiaBod y mass index (BMI) 40.0-44.9, adultMethotr exate, jail, current useBody mass index (BMI) 39.0-39.9, adultOther fatigue Jan- 1 [facility]. [address], [address], [place], [address]. tel:[phone] Referring Provider: Shikha Grimm [address], [place], [address]. tel:[phone] [facility] [address] [facility] [facility] [address] [place] [address], [id number], tel:[phone] [facility] No Information 1 [facility]. [address], [address], [place], [address]. tel:[phone] Referring Provider: Shikha Grimm [facility], [address]. tel:[phone] [facility] [address] [facility] [address] [place] [address], [id number], [place] tel:[phone] [facility] No Information 1 [facility]. [address], [address], [place], [address]. tel:[phone] Referring Provider: Shikha Grimm [facility], [address]. tel:[phone] [facility] [address] [facility] [address] [place] [address], [id number], [place] tel:[phone] [facility] No Information 1 [facility]. [address], [address], [place], [address]. tel:[phone] Referring Provider: Shikha Grimm [facility], [address]. tel:[phone] [facility] [address], [id number], [place] tel:[phone] [facility].. Follow Up of Fibromyalgia Syndrome (chief complaint)Rhe umatoid Arthritis (chief complaint) Immunosuppre ssionSeropos itive Rheumatoid ArthritisFib romyalgiaBod y mass index (BMI) 40.0-44.9, adultMethotr exate, jail, current use 0 1 [facility]. [address], [address], [place], [address]. tel:[phone] Office Visit Level IV [facility].., [address] [place] [address], [id number], [place] tel:[phone] [facility], .S.. No Information 1 Shira Sloan. [address], [facility] 100, [place], [place], [id number]. tel:[phone] Referring Provider: Shikha Grimm, [facility], [address]. tel:[phone] [facility].., [address] [place] [address], [id number], [place] tel:[phone] [facility].. 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 [address], [address], [place], [address]. tel:[phone] Office Visit Level IV [facility] [address], [id number], [place] tel:[phone] [facility] Follow Up of Fibromyalgia Syndrome (chief complaint)Rhe umatoid Arthritis (chief complaint) Immunosuppre ssionSeropos itive Rheumatoid ArthritisFib romyalgiaFat igueMethotre xate, jail, current useBody mass index (BMI) 40.0-44.9, adult 1 [facility]. [address], [address]. tel:[phone] Primary Practice Provider: Abhishek Griggs, [address] [place] [address] 36 [address] [facility], [place], [address]. tel:[phone] erring Provider: Shikha Grimm, [address] [place] [address] 36 [address] [facility] [place], [address]. tel:[phone] [facility], [address] [place] [address], [id number], tel:[phone] [facility].. No Information 0 [facility]. [address] [place] [address], [address]. tel:[phone] Referring Provider: Shikha Grimm, [address] [place] [address], [address]. tel:[phone] [facility], [address] [place] [address], [id number], tel:[phone] [facility] Follow Up of Fibromyalgia Syndrome (chief complaint)Rhe umatoid Arthritis (chief complaint) Immunosuppre ssionSeropos itive Rheumatoid ArthritisFib romyalgiaFat igueBody mass index (BMI) 45.0-49.9, adultMethotr exate, jail, current useBody mass index (BMI) 40.0-44.9, adult 0 Amador Carrillo. [address] [place] [address], [id number], . tel:[phone] Office Visit Level IV [facility] [address], [id number], [place] tel:[phone] [facility] No Information 0 [facility]. [address] [place] [address], [address]. tel:[phone] Referring Provider: Shikha Grimm, [facility], [address]. tel:[phone] [facility], [address] [place] [address], [id number], [place] tel:[phone] [facility][1]S. No Information 0 [facility]. [address] [place] [address], [address]. tel:[phone] Referring Provider: Shikha Grimm [address] [place] [address] [address], [address]. tel:[phone] [facility], [address] [place] [address], [id number], [place] tel:[phone] [facility][1]S. Follow Up of Fibromyalgia Syndrome (chief complaint)Rhe umatoid Arthritis (chief complaint) Immunosuppre ssionSeropos itive Rheumatoid ArthritisFib romyalgiaFat igueBody mass index (BMI) 45.0-49.9, adultMethotr exate, jail, current use Apr-0 0 Amador Carrillo. [address], [id number], [place]. tel:[phone] Office Visit Level IV [facility], [address] [place] [address], [id number], [place] tel:[phone] [facility][1]S.. No Information 0 0 [facility]. [address] [place] [address], [address]. tel:[phone] Referring Provider: Shikha Grimm, [address] [place] [address] [address], [place], [address]. tel:[phone] [facility]., [address] [place] [address], [id number], tel:[phone] [facility].S.. No Information 0 [facility]. [address], [facility] 100, [place], [address]. tel:[phone] Referring Provider: Shikha Grimm, [address] [place] [address] [address], [place], [address]. tel:[phone] [facility] .[facility], [address] [place] [address], [id number], [place] tel:[phone] [facility]. No Information 0 [facility]. [address], [facility] 100, [place], [address]. tel:[phone] Referring Provider: Shikha Grimm, [address] [place] [address] [address], [place], [address]. tel:[phone] Office Visit Level IV [facility]., [address] [place] [address], [id number], [place] tel:[phone] [facility]. Follow Up of Fibromyalgia Syndrome (chief complaint)Rhe umatoid Arthritis (chief complaint) Immunosuppre ssionSeropos itive Rheumatoid ArthritisFib romyalgiaMet hotrexate, jail, current useBody mass index (BMI) 45.0-49.9, adultFatigue Apr-201 9 [facility]. [address], [facility] 100, [place], [address]. tel:[phone] Primary Practice Provider: Abhishek Griggs, [address] [place] [address] [address] [facility], [place], [address]. tel:[phone] erring Provider: Shikha Grimm, [address] [place], [place] [address]y [address], [address]. tel:[phone] Office Visit Level IV [facility], [address] [place] [address], [id number], tel:[phone] [facility]. 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 [address] [place] [address], [address]. tel:[phone] Primary Practice Provider: Abhishek Griggs, [address] [place] [address] E [facility], [place], [address]. tel:[phone] erring Provider: Shikha Grimm, [address] [place] [address] [address], [address]. tel:[phone] Office Visit Level IV [facility], [address] [place] [address], [id number], tel:[phone] [facility]. Follow Up of Fibromyalgia Syndrome (chief complaint)Rhe umatoid Arthritis (chief complaint) Immunosuppre ssionSeropos itive Rheumatoid ArthritisFib romyalgiaBod y mass index (BMI) 40.0-44.9, adultMethotr exate, jail, current use 9 [facility]. [address] [place] [address], [address]. tel:[phone] Primary Practice Provider: Abhishek Griggs, [address] [place] [address] 36 [address] [facility], [place], [address]. tel:[phone] erring Provider: Shikha Grimm, [address] [place], [place] [address]y [address], [facility] [place], [address]. tel:[phone] Office Visit Level IV [facility], [address], [id number], tel:[phone] [facility]. Follow Up of Fibromyalgia Syndrome (chief complaint)Rhe umatoid Arthritis (chief complaint) Immunosuppre ssionSeropos itive Rheumatoid ArthritisFib romyalgiaMet hotrexate, jail, current useBody mass index (BMI) 40.0-44.9, adult 8 [facility]. [address], [place], [address]. tel:[phone] Primary Practice Provider: Abhishek Griggs, [address] [place] [address], [place], [address]. tel:[phone] erring Provider: Shikha Grimm [address] [place] [address] [address], [address]. tel:[phone] Office Visit Level IV [facility] [address] [place] [address], [place], [place], [id number], [place] tel:[phone] [facility]. Follow Up of Fibromyalgia Syndrome (chief complaint)Rhe umatoid Arthritis (chief complaint) Seropositive Rheumatoid ArthritisFib romyalgiaBod y mass index (BMI) 45.0-49.9, adultMethotr exate, longshore equipment operator, current useImmunosup pression 8 [facility]. [address], [address], [place], [address]. tel:[phone] Primary Practice Provider: Abhishek Griggs [address] [place] [address], [place], [address]. tel:[phone] erring Provider: Shikha Grimm [address] [place] [address] [address], [address]. tel:[phone] Office Visit Level I [facility], [facility] [address], [place], [place], [id number], [place] tel:[phone] [facility]. Seropositive Rheumatoid Arthritis [facility]. [address], [facility] 100, [place], [address]. tel:[phone] Referring Provider: Shikha Grimm, [address] [place] [address] [address], [place], [address]. tel:[phone] [facility] [address] [address], [place], [place], [id number], [place] tel:[phone] [facility] No Information 8 [facility]. [address], [place] [address], [place], [address]. tel:[phone] Referring Provider: Shikha Grimm, [address] [place] [address] [address], [place], [address]. tel:[phone] Office Visit Level IV [facility], [address] [address], [place], [place], [id number], [place] tel:[phone] [facility] Follow Up of Fibromyalgia Syndrome (chief complaint)Rhe umatoid Arthritis (chief complaint) Seropositive Rheumatoid ArthritisFib romyalgiaBod y mass index (BMI) 45.0-49.9, adultCurrent Use of Steroid MedicationMe thotrexate, jail, current useFatigue [facility]. [address], [place] [address], [place], [address]. tel:[phone] Primary Practice Provider: Abhishek Griggs, [address] [place] [address] 36 [address] [facility], [place], [address]. tel:[phone] erring Provider: Shikha Grimm, [address] [place] [address] [address], [place], [address]. tel:[phone] Office Visit Level IV [facility] [address], [id number], [place] tel:[phone] [facility] Fibromyalgia Syndrome (chief complaint)Rhe umatoid Arthritis (chief complaint) Seropositive Rheumatoid ArthritisFib romyalgiaCur rent Use of Steroid MedicationMe thotrexate, jail, current useBody mass index (BMI) 45.0-49.9, adult Dec- 7 [facility]. 330 [facility], [address], [place], [address]. tel:[phone] Primary Practice Provider: Abhishek Griggs, [address] [place] [address] E [facility], [place], [address]. tel:[phone] erring Provider: Shikha Grimm, [address] [place] [address] 36 [address] [facility] [place], [address]. tel:[phone] Office Visit Level IV [facility] [address] [place] [address], [id number], [place] tel:[phone] [facility] Fibromyalgia Syndrome (chief complaint)Rhe umatoid Arthritis (chief complaint) Seropositive Rheumatoid ArthritisFib romyalgiaMet hotrexate, longshore equipment operator, current useCurrent Use of Steroid Medication 7 [facility]. [address] [place] [address], [address], [address]. tel:[phone] Primary Practice Provider: Abhishek Griggs, [address] [place] [address] E [facility], [place], [address]. tel:[phone] erring Provider: Shikha Grimm [address] [place] [address] [address], [place], [address]. tel:[phone] New Office Visit Level IV [facility] [address] [place] [address], [id number], [place] tel:[phone] [facility] Joint Pain (chief complaint) Rheumatoid Factor PositiveArth ralgiaFatigu e 7 [facility]. [address], [address], [place], [address]. tel:[phone] Primary Practice Provider: Abhishek Griggs, [address] [place] [address] 36 [address] [facility], [place], [address]. tel:[phone] erring Provider: Shikha Grimm, [address] [place] [address] [address], [place], [address]. tel:[phone] [facility] [address] [place], [place] [address]er [facility] [address] [place] [address], [id number], tel:[phone] [facility] No Information 7 [facility]. [address], [address], [place], [address]. tel:[phone] Referring Provider: Shikha Grimm, [address] [place] [address] [address], [place], [address]. tel:[phone] Family History Family Member Type Diagnosis Age At Onset Mother Problem (finding) Diabetes mellitus Mother Problem (finding) Arthritis Problem (finding) Family history of hyper tension Immunizations Vaccine Date Status Comments Flu (split) (3 yrs or older) administered Source: Other Provider Flu (split) (3 yrs or older) administered Note: aprox date ; Source: Public Agency Payers Payer name Insurance type Covered alliance party ID Authoriza tibridget(s) [facility] [id number] Medicare [id number] Social History Type Description Quantity Date Captured [...] Future Order: Lab Order CBC With Differential/Platelet (819198), Ordered on: Ordered Future Order: Lab Order Comp. Me tabolic Panel (14) ([id number]), Ordered on: Ordered Future Order: Lab Order C-Reacti ve Protein, Quant (451671), Ordered on: Ordered Future Order: Lab Order Sediment ation Rate-Westergren (022340), Ordered on: Ordered Future Order: Lab Order Acute He patitis Panel (921627), Ordered on: Ordered Future Order: Lab Order CBC With Differential/Platelet (556357), Ordered on: Ordered Future Order: Lab Order C-Reacti ve Protein, Quant (492573), Ordered on: Ordered Future Order: Lab Order Comp. Me tabolic Panel (14) (231619), Ordered on: Ordered Future Order: Lab Order QuantiFE GÓMEZ TB Gold Plus(in Tube) (949302), Ordered on: Ordered Future Order: Lab Order Sediment ation Rate-Westergren (820734), Ordered on: Ordered Future Order: Lab Order CBC With Differential/Platelet (910756), Ordered on: Ordered Future Order: Lab Order Comp. Me tabolic Panel (14) (632394), Ordered on: Ordered Future Order: Lab Order C-Reacti ve Protein, Quant (929253), Ordered on: Ordered Future Order: Lab Order Sediment ation Rate-Westergren (476798), Ordered on: Ordered Future Order: Lab Order QuantiFE GÓMEZ TB Gold Plus(in Tube) (469643), Ordered on: Ordered Future Order: Lab Order CBC With Differential/Platelet (757095), Ordered on: Ordered Future Order: Lab Order Comp. Me tabolic Panel (14) (030576), Ordered on: Ordered Future Order: Lab Order C-Reacti ve Protein, Quant (410685), Ordered on: Ordered Future Order: Lab Order Sediment ation Rate-Westergren (743582), Ordered on: Ordered Future Order: Lab Order Hepatiti s Panel (4) (024684), Ordered on: Ordered Future Order: Lab Order CBC With Differential/Platelet (298421), Ordered on: Ordered Future Order: Lab Order Comp. Me tabolic Panel (14) (443877), Ordered on: Ordered Future Order: Lab Order C-Reacti ve Protein, Quant (363924), Ordered on: Ordered Future Order: Lab Order Sediment ation Rate-Westergren (541956), Ordered on: Ordered Future Order: Lab Order Hepatiti s Panel (4) (767396), Ordered on: Ordered Future Order: Lab Order CBC With Differential/Platelet (770566), Ordered on: Ordered Future Order: Lab Order Comp. Pa tabolic Panel (14) (649985), Ordered on: Ordered Future Order: Lab Order C-Reacti ve Protein, Quant (641406), Ordered on: Ordered Future Order: Lab Order Sediment ation Rate-Westergren (676003), Ordered on: Ordered Future Order: Lab Order CBC With Differential/Platelet (529634), Ordered on: Ordered Future Order: Lab Order Comp. Pa tabolic Panel (14) (503336), Ordered on: Ordered Future Order: Lab Order C-Reacti ve Protein, Quant (033668), Ordered on: Ordered Future Order: Lab Order Sediment ation Rate-Westergren (956762), Ordered on: Ordered Future Order: Lab Order Hepatiti s Panel (4) (825288), Ordered on: Ordered Future Order: Lab Order Quanti FERON - TB Gold IT Plus (Theratest) (TBGP), Ordered on: Ordered Future Order: Lab Order CBC With Differential/Platelet (614763), Ordered on: Ordered Future Order: Lab Order C-Reacti ve Protein, Quant (770328), Ordered on: Ordered Future Order: Lab Order Comp. Me tabolic Panel (14) (182679), Ordered on: Ordered Future Order: Lab Order Sediment ation Rate-Westergren (552898), Ordered on: Ordered Future Order: Lab Order CBC With Differential/Platelet (459866), Ordered on: Ordered Future Order: Lab Order Comp. Me tabolic Panel (14) (169171), Ordered on: Ordered Future Order: Lab Order C-Reacti ve Protein, Quant (659654), Ordered on: Ordered Future Order: Lab Order Sediment ation Rate-Westergren (016982), Ordered on: Ordered Future Order: Lab Order Hepatiti s Panel (4) (104158), Ordered on: Ordered Future Order: Lab Order QuantiFE GÓMEZ TB Gold (In Tube) (085492), Ordered on: Ordered Future Order: Lab Order CBC With Differential/Platelet (651897), Ordered on: Ordered Future Order: Lab Order Comp. Pa tabolic Panel (14) (055124), Ordered on: Ordered Future Order: Lab Order C-Reacti ve Protein, Quant (253714), Ordered on: Ordered Future Order: Lab Order Sediment ation Rate-Westergren (555525), Ordered on: Ordered Future Order: Lab Order CBC With Differential/Platelet (382190), Ordered on: Ordered Future Order: Lab Order Comp. Me tabolic Panel (14) (766205), Ordered on: Ordered Future Order: Lab Order C-Reacti ve Protein, Quant (694150), Ordered on: Ordered Future Order: Lab Order Sediment ation Rate-Westergren (850139), Ordered on: Ordered Future Order: Lab Order Hepatiti s Panel (4) (610083), Ordered on: Ordered Future Order: Lab Order Quanti FERON - TB Gold IT Plus (Theratest) (TBGP), Ordered on: Ordered Future Order: Lab Order CBC With Differential/Platelet (426671), Ordered on: Ordered Future Order: Lab Order Comp. Me tabolic Panel (14) (397848), Ordered on: Ordered Future Order: Lab Order C-Reacti ve Protein, Quant (552011), Ordered on: Ordered Future Order: Lab Order Sediment ation Rate-Westergren (296361), Ordered on: Ordered Future Order: Lab Order CBC With Differential/Platelet (739979), Ordered on: Ordered Future Order: Lab Order Comp. Me tabolic Panel (14) (358016), Ordered on: Ordered Future Order: Lab Order C-Reacti ve Protein, Quant (687040), Ordered on: Ordered Future Order: Lab Order Sediment ation Rate-Westergren (436772), Ordered on: Ordered Future Order: Radiology Order Ch est X-ray, AP/Lat (2 Views) (03442), Ordered on: Ordered Future Order: Lab Order CBC With Differential/Platelet (656514), Ordered on: Ordered Future Order: Lab Order Comp. Pa tabolic Panel (14) (715690), Ordered on: Ordered Future Order: Lab Order Hepatiti s Panel (4) (398258), Ordered on: Ordered Future Order: Lab Order C-Reacti ve Protein, Quant (669003), Ordered on: Ordered Future Order: Lab Order Sediment ation Rate-Westergren (880096), Ordered on: Ordered Future Order: Lab Order Quanti FERON - TB Gold IT Plus (Theratest) (TBGP), Ordered on: Ordered Future Order: Lab Order C-Reacti ve Protein, Quant (520951), Ordered on: Ordered Future Order: Lab Order CBC With Differential/Platelet (326562), Ordered on: Ordered Future Order: Lab Order Comp. Pa tabolic Panel (14) (809540), Ordered on: Ordered Future Order: Lab Order Sediment ation Rate-Westergren (516000), Ordered on: Ordered Future Order: Lab Order CBC With Differential/Platelet (311986), Ordered on: Ordered Future Order: Lab Order Comp. Me tabolic Panel (14) (782606), Ordered on: Ordered Future Order: Lab Order C-Reacti ve Protein, Quant (683688), Ordered on: Ordered Future Order: Lab Order Sediment ation Rate-Westergren (281699), Ordered on: Ordered Future Order: Lab Order CBC With Differential/Platelet (593132), Ordered on: Ordered Future Order: Lab Order Comp. Pa tabolic Panel (14) (617382), Ordered on: Ordered Future Order: Lab Order C-Reacti ve Protein, Quant (816130), Ordered on: Ordered Future Order: Lab Order Sediment ation Rate-Westergren (895162), Ordered on: Ordered Future Order: Radiology Order Ch est X-ray, AP/Lat (2 Views) (94260), Ordered on: Ordered Future Order: Lab Order CBC With Differential/Platelet (511759), Ordered on: Ordered Future Order: Lab Order Comp. Me tabolic Panel (14) (374418), Ordered on: Ordered Future Order: Lab Order C-Reacti ve Protein, Quant (817932), Ordered on: Ordered Future Order: Lab Order Sediment ation Rate-Westergren (551127), Ordered on: Ordered Future Order: Lab Order Hepatiti s Panel (4) (665010), Ordered on: Ordered Future Order: Lab Order QuantiFE GÓMEZ- TB Gold IT (Theratest) (TBQ), Ordered on: Ordered Future Order: Lab Order CBC With Differential/Platelet (558690), Ordered on: Ordered Future Order: Lab Order Comp. Me tabolic Panel (14) (675116), Ordered on: Ordered Future Order: Lab Order C-Reacti ve Protein, Quant (435226), Ordered on: Ordered Future Order: Lab Order Sediment ation Rate-Westergren (798235), Ordered on: Ordered Future Order: Lab Order C-Reacti ve Protein, Quant (620305), Ordered on: Ordered Future Order: Lab Order Sediment ation Rate-Westergren (392843), Ordered on: Ordered Future Order: Lab Order CBC With Differential/Platelet (065799), Ordered on: Ordered Future Order: Lab Order Comp. Me tabolic Panel (14) (965960), Ordered on: Ordered Future Order: Lab Order CBC With Differential/Platelet (691908), Ordered on: Ordered Future Order: Lab Order Comp. Me tabolic Panel (14) (942145), Ordered on: Ordered Future Order: Lab Order Cyclic C itrullinated Peptide-4P (CCP4P), Ordered on: Ordered Future Order: Lab Order EL-NADEEM/9 HIEU Sulema Method IgG ([id number]), Ordered on: Ordered Future Order: Lab Order Rheumato id Factor/3 IgM, IgG, IgA (RF3), Ordered on: Ordered Future Order: Radiology Order Ch est X-ray; AP/Lat (2 views) (56950), Ordered on: Ordered Future Order: Radiology Order Gray nd X-ray; Limited (2 views) (64030), Ordered on: Ordered Future Order: Radiology Order Fo ot X-ray; Complete (3+ views) (54114), Ordered on: Ordered Future Order: Lab Order Antinucl ear Antibodies, NADEEM, IFA (024943), Ordered on: Ordered Future Order: Lab Order CBC With Differential/Platelet (429772), Ordered on: Ordered Future Order: Lab Order Comp. Me tabolic Panel (14) (384401), Ordered on: Ordered Future Order: Lab Order C-Reacti ve Protein, Quant (753432), Ordered on: Ordered Future Order: Lab Order Creatine Kinase,Total,Serum (501287), Ordered on: Ordered Future Order: Lab Order Hepatiti s Panel (4) (929041), Ordered on: Ordered Future Order: Lab Order Sediment pauline [place] (985281), Ordered on: Ordered Future Order: Lab Order Uric Aci d, Serum (126840), Ordered on: Ordered History Of Present Illness [...] hepatitis status Related to Other fatigue 1. Hold if the patie nt develops [...] to Body mass index [BMI] 37.0-37.9, adult 1) Hold with infecti ons2) Hold 2 [...] feeling better. Related to Seropositive Rheumatoid Arthritis Update Q Related to Other fatigue 1) [...] week and then stop. 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 Hold if the patie nt develops infection. 2. Avoid live vaccines while on this medication. 3. No recent serious infections4. No infusion reactions 5. Also hold this medication perioperatively if the patient is going to have a surgical procedure Related to Immunosuppression 1. Patient to take 0 .3mL methotrexate [...] on Arava. Related to Seropositive Rheumatoid Arthritis Lifestyle education [...] has had elevated LFTS Related to Methotrexate, jail, current use Lifestyle education regarding di et Related to Body mass index [BMI] 40.0-44.9, adult 1. Continue/refill M TX & folic acid2. [...] has had elevated LFTS Related to Methotrexate, jail, current use 1. Hold if the patie [...] and QTB Related to Other fatigue 1. Labs every 8-12 w eeks.2. No recent infections.3. Medicines to be held preoperatively and postoperatively in event of surgery.4. She has completed the Moderna Covid-19 vaccine. Related to Immunosuppression Change mtx to inject able. She does not tolerate the pills well due to SE. Related to Methotrexate, jail, current use 1. Last dose of IV [...] stopped ibuprofen thinking it was hurting her [id number]. She is on an SSRI. Treating anxiety/depression can help improve myofascial pain 11. She is on hydrocodone/APAP PRN Related to Fibromyalgia Lifestyle education regarding di et Related to Body mass index [BMI] 39.0-39.9, adult Her last dose as . 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 H & P [...] stopped ibuprofen thinking it was hurting her [id number]. She is on an SSRI. Treating anxiety/depression [...] Rheumatoid Arthritis Her last dose as . It has [...] stopped ibuprofen thinking it was hurting her [id number]. She is on an SSRI. Treating anxiety/depression can help improve myofascial pain 11. 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 Last dose of IV [...] stopped ibuprofen thinking it was hurting her [id number]. She is on an SSRI. Treating anxiety/depression [...] No recent infections. Related to Immunosuppression 1. CBC and CMP every 8-12 weeks to monitor for toxicity. 2. Take folate supplements daily.3. No recent serious infections.4. 08/26/2019 labs were fine. 5. Standing lab order was renewed & given to the patient. Related to Methotrexate, jail, current use 1. She thinks Inflec tra [...] ImprovedTB updated 05/2019 Relate d to Fatigue Lifestyle education regarding di et Related to Body mass index (BMI) 40.0-44.9, adult 1. CBC and CMP every 8-12 weeks to monitor for toxicity. 2. Take folate supplements daily.3. No recent serious infections.4. 05/13/19 labs were fine. 5. Standing lab order was renewed & given to the patient. 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 She is unsure of [...] stopped ibuprofen thinking it was hurting her [id number]. She is on an SSRI. Treating anxiety/depression can help improve myofascial pain 11. She is on hydrocodone/APAP PRN Related to Fibromyalgia Improved Related to Fatig ue Check TB status, hep atitis panel, and CXR Related to Fatigue 1. CBC and CMP every 8-12 weeks to monitor for toxicity. 2. Take folate supplements daily.3. No recent serious infections.4. 03/18/2019 labs were fine. 5. Standing lab order was renewed & given to the patient. 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 She feels like he r condition [...] given to the patient. Related to Methotrexate, jail, current use 1. She seems stable today. 2. She [...] stopped ibuprofen thinking it was hurting her [id number]. She is on an SSRI. Treating anxiety/depression [...] stopped ibuprofen thinking it was hurting her [id number]. She is on an SSRI. Treating anxiety/depression can help improve myofascial pain 11. She is on hydrocodone/APAP PRN Related to Fibromyalgia 1. CBC and CMP every 8-12 weeks to monitor for toxicity. 2. Take folate supplements daily.3. No recent serious infections.4. 08/15/2018 labs were fine. Related to Methotrexate, jail, current use 1. Hold if the patie [...] 03/20/2018 labs were fine. Related to Methotrexate, jail, current use 1. She is preparing to [...] stopped ibuprofen thinking it was hurting her [id number]. She is on an SSRI. Treating anxiety/depression [...] 09/12/2017 labs were fine. 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 Continue MTX/foli c acid.2. [...] stopped ibuprofen thinking it was hurting her [id number]. She is on an SSRI. Treating anxiety/depression [...] stopped ibuprofen thinking it was hurting her [id number]. She is on an SSRI. Treating anxiety/depression [...] 08/08/2017 labs were fine. 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 Continue MTX/foli c acid.2. [...] 20 mg/week. See above. 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 H & P [...] stopped ibuprofen thinking it was hurting her [id number]. She is on an SSRI. Treating anxiety/depression [...] stopped ibuprofen thinking it was hurting her [id number]. She is on an SSRI. Treating anxiety/depression can help improve myofascial pain 11. She is on hydrocodone/APAP PRN Related to Fibromyalgia 1. CBC and CMP every 8-12 weeks to monitor for toxicity. 2. Take folate supplements daily.3. No recent serious infections. 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 [...]
[2023-10-24 09:21] VITALS: BP 135/75; PULSE 81; RESP 18; TEMP 36.8; O2SAT 98; BMI 34.9
[2023-10-24 09:35] VITALS: BP 141/84; PULSE 81; RESP 18; O2SAT 95
[2023-10-24] MEDS: methylPREDNISolone ACETATE 80MG/ML VIAL 80 MG (09:35)
[2023-10-24 09:36] VITALS: BP 141/84; PULSE 75; RESP 18; O2SAT 95
--- NOTE | 2023-10-24 09:42 | P.PCN_ITS ---
Procedure Date: 10/24/23 Time: 09:40 Anesthesiologist:: Garrick Fernandez CRNA Complications:: None Pre-procedure Diagnosis:: Degenerative disc lumbar spine multilevels. Lumbar radiculopathy. Lumbar spondylosis. Multilevel lumbar facet arthropathy. Lumbar postlaminectomy syndrome. Post-procedure Diagnosis:: Same. Indications for Procedure:: Patient is a very pleasant 58-year-old female comes our clinic today for a repeat L3-4 epidural steroid injection. L4-5 is not accessible due to previous discectomy/decompression at the L4-5 and L5-S1 level. Patient describes low back pain is constant, dull, aching. She reports having significant improvement lasting for 30 to 40 days after her initial lumbar epidural steroid injection same level. Patient also reports bilateral hip and leg radicular symptoms at times. She rates her pain today 8/10. Procedure Details:: Procedure: Lumbar epidural steroid injection under fluoroscopy Informed consent was obtained and the risks and benefits of the procedure were explained to the patient. The patient was taken to the procedure room and noninvasive monitors placed, including noninvasive blood pressure cuff and pulse oximeter. The back was viewed using C-arm Fluoroscopy and prepped using C hloraprep as a cleansing solution and the L3-4 interspace was palpated. Skin and subcutaneous tissues were anesthetized using lidocaine 1.5% and a 25-gauge needle. After this, an 18-gauge Touhy epidural needle was placed into the L3-4 interspace and advanced using fluoroscopic guidance and loss of resistance to air until the epidural space was encountered. After confirmation of needle placement in the epidural space, with dye, a solution containing normal saline, 3 mL and Depo-Medrol 80 mg were incrementally injected into the lumbar epidural space. The patient tolerated the procedure well with no complications. The patient was observed in the Pain Clinic and then discharged home neurologically intact. Plan and Disposition:: Patient was discharged without incident.
[2023-10-24 10:13] VITALS: BP 157/82; PULSE 78; RESP 18; O2SAT 97
== END 2023-10-24 09:39 | disposition home or self-care (01) ==
PROVIDERS: PCP Internal Medicine Adolescent Medicine; Visit Provider Nurse Anesthetist, Certified Registered
DX: M51.16 Intervertebral disc disorders with radiculopathy, lumbar region (principal); M47.26 Other spondylosis with radiculopathy, lumbar region; M96.1 Postlaminectomy syndrome, not elsewhere classified
CPT/HCPCS: 62323; J1010

== ENCOUNTER 2023-11-02 10:31 | Outpatient (CLI) | payer OTHER, MEDICARE, SELFPAY ==
--- OUTSIDE RECORDS SUMMARY | 2023-11-02 10:34 | XMS_ITS | Continuity of Care Document ---
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 No Information 4 Vanna Wells. [address] [facility], [address], [place], [address]. tel:[phone] Office Visit Level IV [facility], [address] [place] [employer], [id number], [place] tel:[phone] [facility]. Follow Up of Fibromyalgia Syndrome (chief complaint)Rhe umatoid Arthritis (chief complaint) Immune deficiency due to current drugSeroposi tive Rheumatoid ArthritisFib romyalgiaHig h Risk Medication UseBody mass index (BMI) 37.0-37.9, adult 4 [facility]. [address], [address], [place], [address]. tel:[phone] Primary Practice Provider: Abhishek Griggs [address] [place] [address] E [facility], [place], [address]. tel:[phone] erring Provider: Shikha Grimm [address] [place] [address] [address] [place], [address]. tel:[phone] Office Visit Level IV [facility], [address] [place] [address], [place], [place], [id number], [place] tel:[phone] [facility]. Follow Up of Fibromyalgia Syndrome (chief complaint)Rhe umatoid Arthritis (chief complaint) Immune deficiency due to current drugSeroposi tive Rheumatoid ArthritisFib romyalgiaOth er fatigueBody mass index (BMI) 39.0-39.9, adultHigh Risk Medication Use 3 [facility]. [address], [address], [place], [address]. tel:[phone] Primary Practice Provider: Abhishek Griggs [address] [place] [address] E [facility], [place], [address]. tel:[phone] erring Provider: Shikha Grimm [address] [place] [address] [address], [address]. tel:[phone] Office Visit Level IV [facility] [address] [place] [address], [id number], tel:[phone] [facility] Follow Up of Fibromyalgia Syndrome (chief complaint)Rhe umatoid Arthritis (chief complaint) Immune deficiency due to current drugSeroposi tive Rheumatoid ArthritisFib romyalgiaBod y mass index (BMI) 39.0-39.9, adultHigh Risk Medication UseOther fatigue Apr- 3 Wells [employer] Lorena. [address] [place] [address], [id number], . tel:[phone] Referring Provider: Shikha Grimm, [address] [place] [address] [address] [facility] [place], [address]. tel:[phone] Office Visit Level IV [facility], [address] [place] [address], [id number], tel:[phone] [facility] Follow Up of Fibromyalgia Syndrome (chief complaint)Rhe umatoid Arthritis (chief complaint) Seropositive Rheumatoid ArthritisFib romyalgiaBod y mass index (BMI) 39.0-39.9, adultImmune deficiency due to current drugHigh Risk Medication Use Nov- 2 [facility]. [address] [place] [address], [address]. tel:[phone] Referring Provider: Shikha Grimm [address] [place] [address] [address], [address]. tel:[phone] [facility] [address] [place] [address], [id number], tel:[phone] [facility] No Information 2 [facility]. [address] [place] [address], [address]. tel:[phone] Primary Practice Provider: Abhishek Griggs, [address] [place] [address] 36 [address] [facility], [place], [address]. tel:[phone] erring Provider: Shikha Grimm [address], [address]. tel:[phone] Office Visit Level IV [facility], [address] [place] [address], [id number], tel:[phone] [facility] Follow Up of Fibromyalgia Syndrome (chief complaint)Rhe umatoid Arthritis (chief complaint) Immunosuppre ssionSeropos itive Rheumatoid ArthritisFib romyalgiaBod y mass index (BMI) 39.0-39.9, adultMethotr exate, jail, current useBody mass index (BMI) 40.0-44.9, adultFatigue 2 Amador Carrillo. [address] [place] [address], [id number], . tel:[phone] Referring Provider: Shikha Grimm, [address] [place] [address] [address], [address]. tel:[phone] [facility] [address] [place] [address], [id number], [place] tel:[phone] [facility]. No Information 2 [facility]. [address] [place] [address], [address]. tel:[phone] Referring Provider: Shikha Grimm [address] [place] [address] [address], [address]. tel:[phone] [facility].., [address] [place] [address], [id number], [place] tel:[phone] [facility].S.. No Information 2 [facility]. [address] [place] [address], [address]. tel:[phone] Referring Provider: Shikha Grimm [address] [place] [address] [address], [address]. tel:[phone] Office Visit Level IV [facility] [address] [facility] [place], [place], [place], [id number], [place] tel:[phone] [facility].. Follow Up of Fibromyalgia Syndrome (chief complaint)Rhe umatoid Arthritis (chief complaint) Immunosuppre ssionSeropos itive Rheumatoid ArthritisFib romyalgiaBod y mass index (BMI) 39.0-39.9, adultMethotr exate, moth exterminator, current useFatigue 2 [facility]. [address], [address], [address]. tel:[phone] Primary Practice Provider: Abhishek Griggs, [address] [place] [address] 36 [address] [facility], [place], [address]. tel:[phone] erring Provider: Shikha Grimm, [address] [place] [address] [address] [facility] [place], [address]. tel:[phone] [facility] .[facility].., [address], [id number], [place] tel:[phone] [facility].S.. No Information 2 [facility]. [address], [address], [place], [address]. tel:[phone] Referring Provider: Shikha Grimm, [address] [place] [address] [address], [place], [address]. tel:[phone] [facility] MGMT SRVC 20 MIN [facility] [address] [facility] [address] [place] [address], [id number], [place] tel:[phone] [facility], .S.. No Information 2 [facility]. [address], [address], [place], [address]. tel:[phone] Referring Provider: Shikha Grimm [address] [place] [address] [address], [address]. tel:[phone] Office Visit Level IV [facility] [address] [place] [address], [id number], [place] tel:[phone] [facility] Follow Up of Fibromyalgia Syndrome (chief complaint)Rhe umatoid Arthritis (chief complaint) Immunosuppre ssionSeropos itive Rheumatoid ArthritisFib romyalgiaBod y mass index (BMI) 39.0-39.9, adultMethotr exate, jail, current use 2 [facility]. [address], [address], [address]. tel:[phone] Primary Practice Provider: Abhishek Griggs, [address] [place] [address] 36 [address] [facility], [place], [address]. tel:[phone] erring Provider: Shikha Grimm, [address] [place] [address] [address], [place], [address]. tel:[phone] [facility] [address] [place] [address], [id number], [place] tel:[phone] [facility], .[facility]. No Information 1 [facility]. [address], [address], [address]. tel:[phone] Referring Provider: Shikha Grimm, [address] [place] [address] [address] [place], [address]. tel:[phone] Office Visit Level IV [facility] [address] [place] [address], [id number], [place] tel:[phone] [facility] Follow Up of Fibromyalgia Syndrome (chief complaint)Rhe umatoid Arthritis (chief complaint) Immunosuppre ssionSeropos itive Rheumatoid ArthritisFib romyalgiaBod y mass index (BMI) 40.0-44.9, adultMethotr exate, jail, current useBody mass index (BMI) 39.0-39.9, adultOther fatigue Jan- 1 [facility]. [address], [address], [place], [address]. tel:[phone] Referring Provider: Shikha Grimm [address], [place], [address]. tel:[phone] [facility] [address] [facility] [address] [place] [address], [id number], tel:[phone] [facility] No Information 1 [facility]. [address], [address], [address]. tel:[phone] Referring Provider: Shikha Grimm [facility], [address]. tel:[phone] [facility] [address] [facility] [address] [place] [address], [id number], [place] tel:[phone] [facility], .[facility]. No Information 1 [facility]. [address], [address], [place], [address]. tel:[phone] Referring Provider: Shikha Grimm [facility], [address]. tel:[phone] [facility] [address] [facility] [address] [place] [address], [id number], [place] tel:[phone] [facility] No Information 1 [facility]. [address], [address], [address]. tel:[phone] Referring Provider: Shikha Grimm [facility], [address]. tel:[phone] [facility] [address] [place] [employer], [id number], [place] tel:[phone] [facility].. Follow Up of Fibromyalgia Syndrome (chief complaint)Rhe umatoid Arthritis (chief complaint) Immunosuppre ssionSeropos itive Rheumatoid ArthritisFib romyalgiaBod y mass index (BMI) 40.0-44.9, adultMethotr exate, jail, current use 0 1 [facility]. [address], [address], [place], [address]. tel:[phone] Office Visit Level IV [facility].., [address] [place] [address], [id number], [place] tel:[phone] [facility], .S.. No Information 1 Shira Sloan. [address], [facility], [place], [place], [id number]. tel:[phone] Referring Provider: Shikha Grimm, [facility], [address]. tel:[phone] [facility].S.., [address] [place] [address], [id number], [place] tel:[phone] [facility].S.. Follow Up of Fibromyalgia Syndrome (chief complaint)Rhe umatoid Arthritis (chief complaint) Immunosuppre ssionSeropos itive Rheumatoid ArthritisFib romyalgiaFat igueBody mass index (BMI) 40.0-44.9, adultMethotr exate, moth exterminator, current use 0 1 [facility]. [address], [place], [address]. tel:[phone] Office Visit Level IV [facility]., [address], [id number], [place] tel:[phone] [facility] Follow Up of Fibromyalgia Syndrome (chief complaint)Rhe umatoid Arthritis (chief complaint) Immunosuppre ssionSeropos itive Rheumatoid ArthritisFib romyalgiaFat igueMethotre xate, moth exterminator, current useBody mass index (BMI) 40.0-44.9, adult 1 [facility]. [address], [address]. tel:[phone] Primary Practice Provider: Abhishek Griggs, [address] [place] [address] 36 [address] [facility], [place], [address]. tel:[phone] erring Provider: Shikha Grimm, [address] [place] [address] [address] [facility] 2[place], [address]. tel:[phone] [facility], [address] [place] [address], [id number], tel:[phone] [facility].S.. No Information 0 [facility]. [address] [place] [address], [address]. tel:[phone] Referring Provider: Shikha Grimm, [address] [place] [address], [address]. tel:[phone] [facility], [address] [place] [address], [id number], tel:[phone] [facility] Follow Up of Fibromyalgia Syndrome (chief complaint)Rhe umatoid Arthritis (chief complaint) Immunosuppre ssionSeropos itive Rheumatoid ArthritisFib romyalgiaFat igueBody mass index (BMI) 45.0-49.9, adultMethotr exate, jail, current useBody mass index (BMI) 40.0-44.9, adult 0 Amador Carrillo. [address] [place] [address], [id number], . tel:[phone] Office Visit Level IV [facility]., [address], [id number], [place] tel:[phone] [facility] No Information 0 [facility]. [address] [place] [address], [address]. tel:[phone] Referring Provider: Shikha Grimm, [facility], [address]. tel:[phone] [facility], [address] [place] [address], [id number], [place] tel:[phone] [facility] No Information 0 [facility]. [address] [place] [address], [address]. tel:[phone] Referring Provider: Shikha Grimm [address] [place] [address] [address], [address]. tel:[phone] [facility], [address] [place] [address], [id number], [place] tel:[phone] [facility] Follow Up of Fibromyalgia Syndrome (chief complaint)Rhe umatoid Arthritis (chief complaint) Immunosuppre ssionSeropos itive Rheumatoid ArthritisFib romyalgiaFat igueBody mass index (BMI) 45.0-49.9, adultMethotr exate, jail, current use Apr-0 0 Amador Carrillo. [address], [id number], [place]. tel:[phone] Office Visit Level IV [facility], [address] [place] [address], [id number], [place] tel:[phone] [facility] No Information 0 0 [facility]. [address] [place] [address], [address]. tel:[phone] Referring Provider: Shikha Grimm, [address] [place] [address] [address], [place], [address]. tel:[phone] [facility]., [address] [place] [address], [id number], tel:[phone] [facility].S.. No Information 0 [facility]. [address], [facility] 100, [place], [address]. tel:[phone] Referring Provider: Shikha Grimm, [address] [place] [address] [address], [place], [address]. tel:[phone] [facility], .[facility], [address] [place] [address], [id number], [place] tel:[phone] [facility]. No Information 0 [facility]. [address], [facility], [place], [address]. tel:[phone] Referring Provider: Shikha Grimm, [address] [place] [address] [address], [place], [address]. tel:[phone] Office Visit Level IV [facility]., [address] [place] [address], [id number], [place] tel:[phone] [facility].S. Follow Up of Fibromyalgia Syndrome (chief complaint)Rhe umatoid Arthritis (chief complaint) Immunosuppre ssionSeropos itive Rheumatoid ArthritisFib romyalgiaMet hotrexate, jail, current useBody mass index (BMI) 45.0-49.9, adultFatigue Apr-201 9 [facility]. [address], [facility] 100, [place], [address]. tel:[phone] Primary Practice Provider: Abhishek Griggs, [address] [place] [address] [address] [facility], [place], [address]. tel:[phone] erring Provider: Shikha Grimm, [address] [place], [place] [address]y [address] [place], [address]. tel:[phone] Office Visit Level IV [facility], [address] [place] [address], [id number], tel:[phone] [facility]. Follow Up of Fibromyalgia Syndrome (chief complaint)Rhe umatoid Arthritis (chief complaint) Immunosuppre ssionSeropos itive Rheumatoid ArthritisFib romyalgiaBod y mass index (BMI) 40.0-44.9, adultMethotr exate, moth exterminator, current use 9 [facility]. [address] [place] [address], [address]. tel:[phone] Primary Practice Provider: Abhishek Griggs, [address] [place] [address] E [facility], [place], [address]. tel:[phone] erring Provider: Shikha Grimm, [address] [place] [address] [address], [address]. tel:[phone] Office Visit Level IV [facility], [address] [place] [address], [id number], tel:[phone] [facility]. Follow Up of Fibromyalgia Syndrome (chief complaint)Rhe umatoid Arthritis (chief complaint) Immunosuppre ssionSeropos itive Rheumatoid ArthritisFib romyalgiaBod y mass index (BMI) 40.0-44.9, adultMethotr exate, moth exterminator, current use 9 [facility]. [address] [place] [address], [address]. tel:[phone] Primary Practice Provider: Abhishek Griggs, [address] [place] [address] [address] [facility], [place], [address]. tel:[phone] erring Provider: Shikha Grimm, [address] [place], [place] [address]y [address], [place], [address]. tel:[phone] Office Visit Level IV [facility], [address], [id number], tel:[phone] [facility]. Follow Up of Fibromyalgia Syndrome (chief complaint)Rhe umatoid Arthritis (chief complaint) Immunosuppre ssionSeropos itive Rheumatoid ArthritisFib romyalgiaMet hotrexate, jail, current useBody mass index (BMI) 40.0-44.9, adult 8 [facility]. [address], [address]. tel:[phone] Primary Practice Provider: Abhishek Griggs, [address] [place] [address], [place], [address]. tel:[phone] erring Provider: Shikha Grimm [address] [place] [address] [address], [address]. tel:[phone] Office Visit Level IV [facility] [address] [place] [address], [place], [place], [id number], [place] tel:[phone] [facility]. Follow Up of Fibromyalgia Syndrome (chief complaint)Rhe umatoid Arthritis (chief complaint) Seropositive Rheumatoid ArthritisFib romyalgiaBod y mass index (BMI) 45.0-49.9, adultMethotr exate, jail, current useImmunosup pression 8 [facility]. [address], [place], [address]. tel:[phone] Primary Practice Provider: Abhishek Griggs [address] [place] [address], [place], [address]. tel:[phone] erring Provider: Shikha Grimm [address] [place] [address] [address], [address]. tel:[phone] Office Visit Level I [facility], [facility] [address], [place], [place], [id number], [place] tel:[phone] [facility]. Seropositive Rheumatoid [facility]. [address], [facility] 100, [place], [address]. tel:[phone] Referring Provider: Shikha Grimm, [address] [place] [address] [address], [place], [address]. tel:[phone] [facility] [address] [place] [address], [place], [place], [id number], [place] tel:[phone] [facility].. No Information 8 [facility]. [address], [place] [address], [place], [address]. tel:[phone] Referring Provider: Shikha Grimm, [address] [place] [address] [address], [place], [address]. tel:[phone] Office Visit Level IV [facility], [address] [place] [address], [place], [place], [id number], [place] tel:[phone] [facility] Follow Up of Fibromyalgia Syndrome (chief complaint)Rhe umatoid Arthritis (chief complaint) Seropositive Rheumatoid ArthritisFib romyalgiaBod y mass index (BMI) 45.0-49.9, adultCurrent Use of Steroid MedicationMe thotrexate, jail, current useFatigue [facility]. [address], [place] [address], [place], [address]. tel:[phone] Primary Practice Provider: Abhishek Griggs, [address] [place] [address] [address] [facility], [place], [address]. tel:[phone] erring Provider: Shikha Grimm, [address] [place] [address] [address], [place], [address]. tel:[phone] Office Visit Level IV [facility] [address] [address], [id number], [place] tel:[phone] [facility] Fibromyalgia Syndrome (chief complaint)Rhe umatoid Arthritis (chief complaint) Seropositive Rheumatoid ArthritisFib romyalgiaCur rent Use of Steroid MedicationMe thotrexate, moth exterminator, current useBody mass index (BMI) 45.0-49.9, adult Dec- 7 [facility]. [address] [facility], [address], [place], [address]. tel:[phone] Primary Practice Provider: Abhishek Griggs, [address] [place] [address] [address] [facility], [place], [address]. tel:[phone] erring Provider: Shikha Grimm, [address] [place] [address] [address] [facility] [place], [address]. tel:[phone] Office Visit Level IV [facility] [address] [place] [address], [id number], [place] tel:[phone] [facility] Fibromyalgia Syndrome (chief complaint)Rhe umatoid Arthritis (chief complaint) Seropositive Rheumatoid ArthritisFib romyalgiaMet hotrexate, jail, current useCurrent Use of Steroid Medication 7 [facility]. [address] [place] [address], [address], [address]. tel:[phone] Primary Practice Provider: Abhishek Griggs, [address] [place] [address] [address] [facility], [place], [address]. tel:[phone] erring Provider: Shikha Grimm [address] [place] [address] [address], [address]. tel:[phone] New Office Visit Level IV [facility] [address] [place] [address], [id number], [place] tel:[phone] [facility] Joint Pain (chief complaint) Rheumatoid Factor PositiveArth ralgiaFatigu e 7 [facility]. [address], [address], [address]. tel:[phone] Primary Practice Provider: Abhishek Griggs, [address] [place] [address] [address] [facility], [place], [address]. tel:[phone] erring Provider: Shikha Grimm, [address] [place] [address] [address], [place], [address]. tel:[phone] [facility] [address] [place], [place] [address]er [facility] [address] [place] [address], [id number], tel:[phone] [facility] No Information 7 [facility]. [address], [address], [place], [address]. tel:[phone] Referring Provider: Shikha Grimm, [address] [place] [address] [address], [place], [address]. tel:[phone] Family History Family Member Type Diagnosis Age [...] type Covered green party ID Authoriza tibridget(s) [facility] [id number] Medicare [id number] Social History Type Description Quantity Date Captured [...] Future Order: Lab Order CBC With Differential/Platelet (744822), Ordered on: Ordered Future Order: Lab Order Comp. Me tabolic Panel (14) (059228), Ordered on: Ordered Future Order: Lab Order C-Reacti ve Protein, Quant (005130), Ordered on: Ordered Future Order: Lab Order Sediment ation Rate-Westergren (030759), Ordered on: Ordered Future Order: Lab Order Acute He patitis Panel (473111), Ordered on: Ordered Future Order: Lab Order CBC With Differential/Platelet (085782), Ordered on: Ordered Future Order: Lab Order C-Reacti ve Protein, Quant (452658), Ordered on: Ordered Future Order: Lab Order Comp. Me tabolic Panel (14) (189052), Ordered on: Ordered Future Order: Lab Order QuantiFE GÓMEZ TB Gold Plus(in Tube) (803408), Ordered on: Ordered Future Order: Lab Order Sediment ation Rate-Westergren (831379), Ordered on: Ordered Future Order: Lab Order CBC With Differential/Platelet (821918), Ordered on: Ordered Future Order: Lab Order Comp. Me tabolic Panel (14) ([id number]), Ordered on: Ordered Future Order: Lab Order C-Reacti ve Protein, Quant (328986), Ordered on: Ordered Future Order: Lab Order Sediment ation Rate-Westergren (325264), Ordered on: Ordered Future Order: Lab Order QuantiFE GÓMEZ TB Gold Plus(in Tube) (134298), Ordered on: Ordered Future Order: Lab Order CBC With Differential/Platelet (032437), Ordered on: Ordered Future Order: Lab Order Comp. Me tabolic Panel (14) (455696), Ordered on: Ordered Future Order: Lab Order C-Reacti ve Protein, Quant (083624), Ordered on: Ordered Future Order: Lab Order Sediment ation Rate-Westergren (445575), Ordered on: Ordered Future Order: Lab Order Hepatiti s Panel (4) (571286), Ordered on: Ordered Future Order: Lab Order CBC With Differential/Platelet (496623), Ordered on: Ordered Future Order: Lab Order Comp. Me tabolic Panel (14) (837411), Ordered on: Ordered Future Order: Lab Order C-Reacti ve Protein, Quant (173382), Ordered on: Ordered Future Order: Lab Order Sediment ation Rate-Westergren (700958), Ordered on: Ordered Future Order: Lab Order Hepatiti s Panel (4) (647485), Ordered on: Ordered Future Order: Lab Order CBC With Differential/Platelet (894781), Ordered on: Ordered Future Order: Lab Order Comp. Ca tabolic Panel (14) (636977), Ordered on: Ordered Future Order: Lab Order C-Reacti ve Protein, Quant (216375), Ordered on: Ordered Future Order: Lab Order Sediment ation Rate-Westergren (020574), Ordered on: Ordered Future Order: Lab Order CBC With Differential/Platelet (539519), Ordered on: Ordered Future Order: Lab Order Comp. Ca tabolic Panel (14) (757440), Ordered on: Ordered Future Order: Lab Order C-Reacti ve Protein, Quant (776141), Ordered on: Ordered Future Order: Lab Order Sediment ation Rate-Westergren (456647), Ordered on: Ordered Future Order: Lab Order Hepatiti s Panel (4) (252812), Ordered on: Ordered Future Order: Lab Order Quanti FERON - TB Gold IT Plus (Theratest) (TBGP), Ordered on: Ordered Future Order: Lab Order CBC With Differential/Platelet (404593), Ordered on: Ordered Future Order: Lab Order C-Reacti ve Protein, Quant (291461), Ordered on: Ordered Future Order: Lab Order Comp. Me tabolic Panel (14) (927884), Ordered on: Ordered Future Order: Lab Order Sediment ation Rate-Westergren (738667), Ordered on: Ordered Future Order: Lab Order CBC With Differential/Platelet (769267), Ordered on: Ordered Future Order: Lab Order Comp. Me tabolic Panel (14) (054311), Ordered on: Ordered Future Order: Lab Order C-Reacti ve Protein, Quant (408186), Ordered on: Ordered Future Order: Lab Order Sediment ation Rate-Westergren (235241), Ordered on: Ordered Future Order: Lab Order Hepatiti s Panel (4) (341179), Ordered on: Ordered Future Order: Lab Order QuantiFE GÓMEZ TB Gold (In Tube) (803905), Ordered on: Ordered Future Order: Lab Order CBC With Differential/Platelet (537735), Ordered on: Ordered Future Order: Lab Order Comp. Ca tabolic Panel (14) (623951), Ordered on: Ordered Future Order: Lab Order C-Reacti ve Protein, Quant (930985), Ordered on: Ordered Future Order: Lab Order Sediment ation Rate-Westergren (928388), Ordered on: Ordered Future Order: Lab Order CBC With Differential/Platelet (504253), Ordered on: Ordered Future Order: Lab Order Comp. Me tabolic Panel (14) (204588), Ordered on: Ordered Future Order: Lab Order C-Reacti ve Protein, Quant (081254), Ordered on: Ordered Future Order: Lab Order Sediment ation Rate-Westergren (578839), Ordered on: Ordered Future Order: Lab Order Hepatiti s Panel (4) (227196), Ordered on: Ordered Future Order: Lab Order Quanti FERON - TB Gold IT Plus (Theratest) (TBGP), Ordered on: Ordered Future Order: Lab Order CBC With Differential/Platelet (493030), Ordered on: Ordered Future Order: Lab Order Comp. Me tabolic Panel (14) (090273), Ordered on: Ordered Future Order: Lab Order C-Reacti ve Protein, Quant (560762), Ordered on: Ordered Future Order: Lab Order Sediment ation Rate-Westergren (877208), Ordered on: Ordered Future Order: Lab Order CBC With Differential/Platelet (274788), Ordered on: Ordered Future Order: Lab Order Comp. Me tabolic Panel (14) (888684), Ordered on: Ordered Future Order: Lab Order C-Reacti ve Protein, Quant (410774), Ordered on: Ordered Future Order: Lab Order Sediment ation Rate-Westergren (257329), Ordered on: Ordered Future Order: Radiology Order Ch est X-ray, AP/Lat (2 Views) (47863), Ordered on: Ordered Future Order: Lab Order CBC With Differential/Platelet (442561), Ordered on: Ordered Future Order: Lab Order Comp. Ca tabolic Panel (14) (250816), Ordered on: Ordered Future Order: Lab Order Hepatiti s Panel (4) (124170), Ordered on: Ordered Future Order: Lab Order C-Reacti ve Protein, Quant (366741), Ordered on: Ordered Future Order: Lab Order Sediment ation Rate-Westergren (129442), Ordered on: Ordered Future Order: Lab Order Quanti FERON - TB Gold IT Plus (Theratest) (TBGP), Ordered on: Ordered Future Order: Lab Order C-Reacti ve Protein, Quant (034976), Ordered on: Ordered Future Order: Lab Order CBC With Differential/Platelet (440635), Ordered on: Ordered Future Order: Lab Order Comp. Ca tabolic Panel (14) (882228), Ordered on: Ordered Future Order: Lab Order Sediment ation Rate-Westergren (293343), Ordered on: Ordered Future Order: Lab Order CBC With Differential/Platelet (209076), Ordered on: Ordered Future Order: Lab Order Comp. Me tabolic Panel (14) (952912), Ordered on: Ordered Future Order: Lab Order C-Reacti ve Protein, Quant (591190), Ordered on: Ordered Future Order: Lab Order Sediment ation Rate-Westergren (567310), Ordered on: Ordered Future Order: Lab Order CBC With Differential/Platelet (264228), Ordered on: Ordered Future Order: Lab Order Comp. Ca tabolic Panel (14) (060604), Ordered on: Ordered Future Order: Lab Order C-Reacti ve Protein, Quant (328901), Ordered on: Ordered Future Order: Lab Order Sediment ation Rate-Westergren (237223), Ordered on: Ordered Future Order: Radiology Order Ch est X-ray, AP/Lat (2 Views) (33080), Ordered on: Ordered Future Order: Lab Order CBC With Differential/Platelet (715028), Ordered on: Ordered Future Order: Lab Order Comp. Me tabolic Panel (14) (568449), Ordered on: Ordered Future Order: Lab Order C-Reacti ve Protein, Quant (080799), Ordered on: Ordered Future Order: Lab Order Sediment ation Rate-Westergren (530868), Ordered on: Ordered Future Order: Lab Order Hepatiti s Panel (4) (995639), Ordered on: Ordered Future Order: Lab Order QuantiFE GÓMEZ- TB Gold IT (Theratest) (TBQ), Ordered on: Ordered Future Order: Lab Order CBC With Differential/Platelet (077443), Ordered on: Ordered Future Order: Lab Order Comp. Me tabolic Panel (14) (560961), Ordered on: Ordered Future Order: Lab Order C-Reacti ve Protein, Quant (330979), Ordered on: Ordered Future Order: Lab Order Sediment ation Rate-Westergren (827485), Ordered on: Ordered Future Order: Lab Order C-Reacti ve Protein, Quant (070339), Ordered on: Ordered Future Order: Lab Order Sediment ation Rate-Westergren (658491), Ordered on: Ordered Future Order: Lab Order CBC With Differential/Platelet (906939), Ordered on: Ordered Future Order: Lab Order Comp. Me tabolic Panel (14) (049981), Ordered on: Ordered Future Order: Lab Order CBC With Differential/Platelet (576519), Ordered on: Ordered Future Order: Lab Order Comp. Me tabolic Panel (14) (483250), Ordered on: Ordered Future Order: Lab Order Cyclic C itrullinated Peptide-4P (CCP4P), Ordered on: Ordered Future Order: Lab Order EL-NADEEM/9 HIEU Sulema Method IgG (MSH6PAR), Ordered on: Ordered Future Order: Lab Order Rheumato id Factor/3 IgM, IgG, IgA (RF3), Ordered on: Ordered Future Order: Radiology Order Ch est X-ray; AP/Lat (2 views) (85559), Ordered on: Ordered Future Order: Radiology Order Gray nd X-ray; Limited (2 views) (60632), Ordered on: Ordered Future Order: Radiology Order Fo ot X-ray; Complete (3+ views) (17863), Ordered on: Ordered Future Order: Lab Order Antinucl ear Antibodies, NADEEM, IFA (570677), Ordered on: Ordered Future Order: Lab Order CBC With Differential/Platelet (233162), Ordered on: Ordered Future Order: Lab Order Comp. Me tabolic Panel (14) (915395), Ordered on: Ordered Future Order: Lab Order C-Reacti ve Protein, Quant (031639), Ordered on: Ordered Future Order: Lab Order Creatine Kinase,Total,Serum (732682), Ordered on: Ordered Future Order: Lab Order Hepatiti s Panel (4) (299797), Ordered on: Ordered Future Order: Lab Order Sediment pauline [place] (692316), Ordered on: Ordered Future Order: Lab Order Uric Aci d, Serum (209709), Ordered on: Ordered History Of Present Illness [...] current drug 1. Continue Arava. 2 . Inflectra was [...] on Arava. Related to Seropositive Rheumatoid Arthritis Stop due to patient request.She will take 0.3 mL next week and then stop. Related to Methotrexate, moth exterminator, current use 1. Hold if the patie [...] has had elevated LFTS Related to Methotrexate, moth exterminator, current use Lifestyle education regarding di et Related to Body mass index [BMI] 40.0-44.9, adult Update hepatitis and QTB Related to Other fatigue 1. H & [...] stopped ibuprofen thinking it was hurting her [id number]. She is on an SSRI. Treating anxiety/depression [...] Body mass index [BMI] 39.0-39.9, adult 1. H & P consistent with [...] stopped ibuprofen thinking it was hurting her [id number]. She is on an SSRI. Treating anxiety/depression can help improve myofascial pain 11. She is on hydrocodone/APAP PRN Related to Fibromyalgia restarted 08/2020 Related to Meth otrexate, jail, current use Her last dose as . Cleared to [...] diagnosed her with RMSF Related to Methotrexate, moth exterminator, current use 1. Last dose of IV [...] stopped ibuprofen thinking it was hurting her [id number]. She is on an SSRI. Treating anxiety/depression [...] stopped ibuprofen thinking it was hurting her [id number]. She is on an SSRI. Treating anxiety/depression can help improve myofascial pain 11. She is on hydrocodone/APAP PRN Related to Fibromyalgia This has been held s wilfredo 04/28/20 because her PCP diagnosed her with RMSF Related to Methotrexate, moth exterminator, current use 1. Last dose of IV [...] patient. Related to Methotrexate, jail, current use ImprovedTB updated 05/2019 Relate d to Fatigue 1. H & P consistent [...] stopped ibuprofen thinking it was hurting her [id number]. She is on an SSRI. Treating anxiety/depression [...] stopped ibuprofen thinking it was hurting her [id number]. She is on an SSRI. Treating anxiety/depression [...] given to the patient. Related to Methotrexate, moth exterminator, current use Check TB status, hep atitis [...] patient. Related to Methotrexate, jail, current use Lifestyle [...] stopped ibuprofen thinking it was hurting her [id number]. She is on an SSRI. Treating anxiety/depression [...] given to the patient. Related to Methotrexate, moth exterminator, current use 1. CBC and CMP every 8-12 weeks [...] stopped ibuprofen thinking it was hurting her [id number]. She is on an SSRI. Treating anxiety/depression [...] 03/20/2018 labs were fine. Related to Methotrexate, moth exterminator, current use 1. She is preparing to [...] stopped ibuprofen thinking it was hurting her [id number]. She is on an SSRI. Treating anxiety/depression [...] stopped ibuprofen thinking it was hurting her [id number]. She is on an SSRI. Treating anxiety/depression can help improve myofascial pain 11. She is on hydrocodone/APAP PRN Related to Fibromyalgia 1. CBC and CMP every 8-12 weeks to monitor for toxicity. 2. Take folate supplements daily.3. No recent serious infections.4. 09/12/2017 labs were fine. Related to Methotrexate, moth exterminator, current use 1. Continue MTX/foli c acid.2. [...] Refill medicine. Related to Seropositive Rheumatoid Arthritis She stopped steroids because they were making her diabetes more difficult to control. Related to Current Use of Steroid Medication 1. CBC and CMP every 8-12 weeks to monitor for toxicity. 2. Take folate supplements daily.3. No recent serious infections.4. 08/08/2017 labs were fine. Related to Methotrexate, jail, current use 1. H & P consistent [...] stopped ibuprofen thinking it was hurting her [id number]. She is on an SSRI. Treating anxiety/depression [...] stopped ibuprofen thinking it was hurting her [id number]. She is on an SSRI. Treating anxiety/depression [...] 20 mg/week. See above. Related to Methotrexate, moth exterminator, current use Dietary management e ducation, guidance, [...] stopped ibuprofen thinking it was hurting her [id number]. She is on an SSRI. Treating anxiety/depression can help improve myofascial pain 11. She is on hydrocodone/APAP PRN Related to Fibromyalgia 1. CBC and CMP every 8-12 weeks to monitor for toxicity. 2. Take folate supplements daily.3. No recent serious infections. Related to Methotrexate, moth exterminator, current use Lower today to 2.5 mg/day. [...]
--- NOTE | 2023-11-02 10:37 | XR_ITS ---
FINAL REPORT CLINICAL HISTORY: Left foot pain COMPARISON: None FINDINGS: LEFT FOOT Three views of the left foot demonstrate no acute fracture or dislocation. There is a chronic appearing fracture of the fifth metatarsal. There are postoperative changes in the ankle and rear foot. Mild degenerative change is noted. Calcaneal spurs are noted. The soft tissues are unremarkable. IMPRESSION: Postoperative and degenerative changes as above. Chronic appearing fifth metatarsal fracture. Reviewed, Interpreted and Dictated by Ronny Bonilla III, MD Transcribed by Areli Houston Authenticated and [facility]
== END 2023-11-02 23:59 | disposition home or self-care (01) ==
LOC: RAD 10:32
PROVIDERS: PCP Internal Medicine Adolescent Medicine; Visit Provider Podiatrist
DX: M79.672 Pain in left foot (principal)
CPT/HCPCS: 73630

== ENCOUNTER 2023-12-06 10:34 | Outpatient (POV) | payer OTHER, MEDICARE, SELFPAY ==
--- NOTE | 2023-12-06 10:54 | EXP.PAIN.SOA ---
[facility] Disclaimer: The information contained in this section may have been updated after the patient was seen, as this information can be updated by other users. Medical History Pulmonary histoplasmosis granuloma Solitary pulmonary nodule Lymphadenopathy Pulmonary histoplasmosis CHEY (obstructive sleep apnea) Fatigue Atrial fibrillation HTN (hypertension) LV dysfunction Surgical History History of surgery on lower extremity History of arthroscopy of shoulder Family History Other Hypertension Social History Smoking Status: Never smoker alcohol intake: never counseling provided: none substance use type: denies use current occupational status: other Travel in the last 8 weeks: None household members: significant other housing: house current occupational exposures/hazards: No caffeine: No PM Subjective & Objective Subjective Subjective:: Patient is a pleasant 58-year-old female who presents today for follow-up of lumbar epidural steroid injection L3-L4 on 10/24/2023. Today she rates her pain a 4 out of 10. Patient denies any new trauma or injury. She does state that this injection worked better than her last 1 providing 80% relief in his work to effectively over the last 5 to 6 weeks. She states that she is just now starting to feel a little bit of the pain back however it is still manageable and not as severe. Patient is prescribed gabapentin and [place] from her PCP. Her Pola has been reviewed and is appropriate. Review of Systems: General: No recent weight changes, no fever, no sleep disturbances Respiratory: No cough, no shortness of air, no recurring pulmonary infections Cardiovascular/peripheral vascular: No chest pain, no palpitations, no edema, no shortness of breath Gastrointestinal: No new onset incontinence, normal bowel movements reported Genitourinary: No new onset incontinence Musculoskeletal: Low back pain Psychiatric: [Normal mood/affect] Neurological: [Denies weakness in extremities], [denies balance issues] Pain at rest (0-10 scale): 4 Objective Objective:: Physical Exam: General: Alert and oriented x3, no acute distress, pleasant and cooperative Lungs: Respirations even and unlabored, symmetrical chest expansion Eyes: PERRL Musculoskeletal: Flexion and extension of lumbar [spine] somewhat guarded secondary to pain, [antalgic gait noted] Neurological: Speech clear, no gross sensory deficit Has patient had previous pain injection?: Yes Percent improvement in pain since last injection: 80 Conservative treatment options previously tried: Home exercise plan Length of treatment: Longer than 6 weeks and Prescription medications Length of treatment: Longer than 6 weeks Meds Home Medications and Allergies Home Medications Medication Instructions Recorded Confirmed Type esomeprazole magnesium 40 mg 40 mg PO DAILY acid reflux 09/05/17 11/02/23 History capsule,delayed release hydrocodone 7.5 mg-acetaminophen 1 tab PO Q6H PRN pain, moderate 09/05/17 11/02/23 History 300 mg tablet rivaroxaban 20 mg tablet (Xarelto) 20 mg PO QPM Blood thinner 09/05/17 11/02/23 History sucralfate 1 gram tablet 1 g PO BID stomach 09/05/17 11/02/23 History diazepam 5 mg tablet 5 mg PO BID PRN Muscle Spasm 05/31/18 11/02/23 Rx empagliflozin 25 mg tablet 25 mg PO DAILY Diabetes 90 days 02/07/19 11/02/23 History #90 tabs dulaglutide 1.5 mg/0.5 mL 1.5 mg SQ WEEKLY 01/06/21 11/02/23 History subcutaneous pen injector diltiazem HCl 120 mg See Rx Instructions .Route 03/30/23 11/02/23 Rx capsule,extended release 24 hr .COMPLEX #90 caps bisoprolol fumarate 5 mg tablet 5 mg PO DAILY #90 tabs 04/10/23 11/02/23 Rx citalopram 20 mg tablet 40 mg PO HS mood 04/19/23 11/02/23 History gabapentin 400 mg capsule 400 mg PO QID neuropathy 04/19/23 11/02/23 History hydrochlorothiazide 25 mg tablet 12.5 mg PO QAM diuretic 04/19/23 11/02/23 History losartan 100 mg tablet 50 mg PO DAILY blood pressure 04/19/23 11/02/23 History ergocalciferol (vitamin D2) 1,250 1,250 mcg PO WEEKLY low vit D 3 07/11/23 11/02/23 Rx mcg (50,000 unit) capsule (Vitamin months #13 caps D2) New Prescriptions to Start Prescriptions: Allergies Allergy/AdvReac Type Severity Reaction Status Date / Time Penicillins Allergy Intermediate I-RASH Verified 11/02/23 11:21 Assessment and Plan *Assessment and plan (1) Lumbar radiculopathy: Status: Acute Category: Medical Code(s): M54.16 - Radiculopathy, lumbar region (2) Degenerative disc disease, lumbar: Status: Acute Category: Medical Code(s): M51.36 - Other intervertebral disc degeneration, lumbar region Plan Patient has had significant improvement following this injection and does not require any additional injection therapy at this time. Patient will return to clinic in 1 month for reevaluation of symptoms and plan of care. Patient has been instructed to contact the clinic with any concerns before the next appointment. Dr. Veliz has reviewed this note and agrees with this plan of care. This note was dictated using voice recognition software and make contain errors or omissions.
[2023-12-06 11:21] VITALS: BP 148/97; PULSE 86; RESP 18; O2SAT 93; BMI 36.5
== END 2023-12-06 23:59 | disposition home or self-care (01) ==
LOC: SC.PAIN 10:35
PROVIDERS: PCP Internal Medicine Adolescent Medicine; Visit Provider Nurse Practitioner Family
DX: M54.16 Radiculopathy, lumbar region (principal); M51.36 Other intervertebral disc degeneration, lumbar region
CPT/HCPCS: 99212; G0463

== ENCOUNTER 2023-12-21 09:23 | Outpatient (CLI) | payer OTHER, MEDICARE, SELFPAY ==
[2023-12-21 09:55] LABS: Basophils # 0.1 K/mm3 (0-0.2); Basophils % 1.8 % (0.1-2.0); Eosinophils # 1.2 K/mm3 (0.0-0.4); Hematocrit 44.3 % (37.0-47.0); Hemoglobin 13.8 g/dL (12.2-16.2); Lymphocytes # 2.1 K/mm3 (0.7-4.5); Lymphocytes % 31.3 % (10-50); Mean Corpuscular HGB Conc 31.1 g/dL (31.8-35.4); Mean Corpuscular Volume 89.9 fl (81-99); Mean Platelet Volume 7.1 fl (7.4-10.4); Monocytes # 0.5 K/mm3 (0.1-1.0); Monocytes % 7.2 % (1.7-9.3); Neutrophils # 2.8 K/mm3 (1.8-7.8); Neutrophils % 41.7 % (37.0-80.0); Platelet Count 287 K/mm3 (142-424); Red Blood Count 4.93 M/mm3 (4.20-5.40); Red Cell Distribution Width 14.9 % (11.5-17.5); White Blood Count 6.6 K/mm3 (4.8-10.8)
[2023-12-21 10:20] LABS: Alanine Aminotransferase 16 U/L (12-78); Albumin Level 3.9 g/dl (3.5-5.0); Alkaline Phosphatase 101 U/L (38-126); Anion Gap 9.8 mEq/L (5-15); Aspartate Amino Transferase 29 U/L (14-36); Bilirubin,Total 0.6 mg/dl (0.2-1.3); Blood Urea Nitrogen 17 mg/dl (7-17); Calcium 9.9 mg/dl (8.4-10.2); Carbon Dioxide 26 mmol/L (22.0-30.0); Chloride 107 mmol/L (98-107); Chol/HDL Ratio 5.2 (1-3.5); Cholesterol 235 mg/dl (140-200); Estimated Glomerular Filt Rate 86 ml/min (>60); GFR (African American) 104 ML/MIN (>60); Globulin 3.8 g/dL (1.3-3.2); Glucose 153 mg/dl (74-100); HDL Cholesterol 45 mg/dl (40-60); Potassium 3.8 mmoL/L (3.5-5.1); Sodium 139 mmol/L (136-145); Total Protein,Serum 7.7 g/dl (6.3-8.2); Triglycerides 235 mg/dl (30-150); VLDL Cholesterol 47 mg/dL (0-40)
[2023-12-21 10:27] LABS: Erythrocyte Sedimentation Rate 17 mm/hr (0-30)
[2023-12-21 10:48] LABS: C-Reactive Protein 1.7 mg/L (0-4)
[2023-12-21 10:53] LABS: Direct LDL Cholesterol 133.88 mg/dL (100-129)
[2023-12-21 21:59] LABS: Hemoglobin A1C 6.8 % (4.0-6.0)
[2023-12-22 00:04] LABS: Creatinine,Urine Random 58 mg/dL (Not Estab.); Microalbumin < 6.000 mg/L (0-16.7)
== END 2023-12-21 23:59 | disposition home or self-care (01) ==
LOC: LAB 09:27
PROVIDERS: Nurse Practitioner Family; PCP Internal Medicine Adolescent Medicine; Visit Provider Nurse Practitioner Family
DX: E11.65 Type 2 diabetes mellitus with hyperglycemia (principal); M05.79 Rheumatoid arthritis with rheumatoid factor of multiple sites without organ or systems involvement; I10 Essential (primary) hypertension; E78.2 Mixed hyperlipidemia; D84.821 Immunodeficiency due to drugs; Z79.899 Other long term (current) drug therapy
CPT/HCPCS: 36415; 80053; 80061; 82043; 82570; 83036; 85025; 85651; 86140

== ENCOUNTER 2024-01-10 11:24 | Outpatient (POV) | payer OTHER, MEDICARE, SELFPAY ==
--- NOTE | 2024-01-10 12:13 | EXP.PAIN.SOA ---
[facility] Disclaimer: The information contained in this section may have been updated after the patient was seen, as this information can be updated by other users. Medical History Pulmonary histoplasmosis granuloma Solitary pulmonary nodule Lymphadenopathy Pulmonary histoplasmosis CHEY (obstructive sleep apnea) Fatigue Atrial fibrillation HTN (hypertension) LV dysfunction Surgical History History of surgery on lower extremity History of arthroscopy of shoulder Family History Other Hypertension Social History Smoking Status: Never smoker alcohol intake: never counseling provided: none substance use type: denies use current occupational status: retired Travel in the last 8 weeks: None household members: significant other housing: house current occupational exposures/hazards: No caffeine: No PM Subjective & Objective Subjective Subjective:: Patient is a pleasant 58-year-old female who presents today for follow-up. Today she rates her pain an 8 out of 10. Patient denies any new trauma or injury. She does state that she is experiencing worsening pain in her low back that does radiate down her entire right leg to her ankle. She does describe it as an aching, throbbing sensation with numbness and burning down into the extremity. Patient states the pain is constant and does affect her ability perform activities of daily living such as cooking and cleaning. Patient did previously have a lumbar epidural of L3-L4 back in October that did provide 80% relief lasting longer than 6 weeks. Patient did have improved function and felt like this did allow her to do more activities with decreased pain. Patient is interested in repeating this injection. Patient has continued to try [id number] medications along with heat and ice and topicals and continued at home stretching exercise for longer than 6 weeks with no additional change. She is prescribed [place] from her PCP. Her Pola has been reviewed and is appropriate. Review of Systems: General: No recent weight changes, no fever, no sleep disturbances Respiratory: No cough, no shortness of air, no recurring pulmonary infections Cardiovascular/peripheral vascular: No chest pain, no palpitations, no edema, no shortness of breath Gastrointestinal: No new onset incontinence, normal bowel movements reported Genitourinary: No new onset incontinence Musculoskeletal: Low back pain, right leg pain Psychiatric: [Normal mood/affect] Neurological: [Denies weakness in extremities], [denies balance issues] Pain at rest (0-10 scale): 8 Objective Objective:: Physical Exam: General: Alert and oriented x3, no acute distress, pleasant and cooperative Lungs: Respirations even and unlabored, symmetrical chest expansion Eyes: PERRL Musculoskeletal: Flexion and extension of lumbar [spine] somewhat guarded secondary to pain, [antalgic gait noted] positive right leg raise with decreased sensation to light touch and decreased reflexes Neurological: Speech clear, no gross sensory deficit Has patient had previous pain injection?: No Conservative treatment options previously tried: Home exercise plan Length of treatment: Longer than 6 weeks Meds Home Medications and Allergies Home Medications ?Medication ?Instructions ?Recorded ?Confirmed ?Type esomeprazole magnesium 40 mg 40 mg PO DAILY acid reflux 09/05/17 12/06/23 History capsule,delayed release hydrocodone 7.5 mg-acetaminophen 1 tab PO Q6H PRN pain, moderate 09/05/17 12/06/23 History 300 mg tablet rivaroxaban 20 mg tablet (Xarelto) 20 mg PO QPM Blood thinner 09/05/17 12/06/23 History sucralfate 1 gram tablet 1 g PO BID stomach 09/05/17 12/06/23 History diazepam 5 mg tablet 5 mg PO BID PRN Muscle Spasm 05/31/18 12/06/23 Rx empagliflozin 25 mg tablet 25 mg PO DAILY Diabetes 90 days 02/07/19 12/06/23 History #90 tabs dulaglutide 1.5 mg/0.5 mL 1.5 mg SQ WEEKLY 01/06/21 12/06/23 History subcutaneous pen injector diltiazem HCl 120 mg See Rx Instructions .Route 03/30/23 12/06/23 Rx capsule,extended release 24 hr .COMPLEX #90 caps bisoprolol fumarate 5 mg tablet 5 mg PO DAILY #90 tabs 04/10/23 12/06/23 Rx citalopram 20 mg tablet 40 mg PO HS mood 04/19/23 12/06/23 History gabapentin 400 mg capsule 400 mg PO QID neuropathy 04/19/23 12/06/23 History hydrochlorothiazide 25 mg tablet 12.5 mg PO QAM diuretic 04/19/23 12/06/23 History losartan 100 mg tablet 50 mg PO DAILY blood pressure 04/19/23 12/06/23 History ergocalciferol (vitamin D2) 1,250 1,250 mcg PO WEEKLY low vit D 3 07/11/23 12/06/23 Rx mcg (50,000 unit) capsule (Vitamin months #13 caps D2) New Prescriptions to Start Prescriptions: Allergies Allergy/AdvReac Type Severity Reaction Status Date / Time Penicillins Allergy Intermediate I-RASH Verified 11/02/23 11:21 Assessment and Plan *Assessment and plan (1) Lumbar radiculopathy: Status: Acute Category: Medical Code(s): M54.16 - Radiculopathy, lumbar region (2) Degenerative disc disease, lumbar: Status: Acute Category: Medical Code(s): M51.36 - Other intervertebral disc degeneration, lumbar region (3) Lumbar spinal stenosis: Status: Acute Qualifiers: Neurogenic claudication status: with neurogenic claudication Qualified Code(s): M48.062 - Spinal stenosis, lumbar region with neurogenic claudication Category: Medical Code(s): M48.061 - Spinal stenosis, lumbar region without neurogenic claudication Plan Patient is experiencing worsening pain throughout her low back with numbness and tingling down her entire right extremity. Patient did have limited range of motion of her lumbar spine and a positive right leg raise. I did discuss the risk and benefits of repeat lumbar epidural steroid injection and the patient would like to proceed forward with this plan of care. Patient is currently on Xarelto written by Dr. Griggs's office. I have counseled her that we will reach out to confirm she can stop this medication prior to this injection. Patient has previously had this injection in October that did provide 80% relief lasting longer than 6 weeks with improved function. Patient will be submitted for a LESI L3-L4 under fluoroscopy. Patient has been instructed to contact the clinic with any concerns before the next appointment. Dr. Veliz has reviewed this note and agrees with this plan of care. This note was dictated using voice recognition software and make contain errors or omissions. All injections are used with Lidocaine or Bupivacaine and Depo Medrol.
[2024-01-10 12:16] VITALS: BP 135/81; PULSE 85; RESP 18; O2SAT 95; BMI 35.7
== END 2024-01-10 23:59 | disposition home or self-care (01) ==
LOC: SC.PAIN 11:25
PROVIDERS: PCP Internal Medicine Adolescent Medicine; Visit Provider Nurse Practitioner Family
DX: M51.16 Intervertebral disc disorders with radiculopathy, lumbar region (principal); M48.062 Spinal stenosis, lumbar region with neurogenic claudication; Z73.89 Other problems related to life management difficulty; Z79.899 Other long term (current) drug therapy
CPT/HCPCS: 99212; G0463

== ENCOUNTER 2024-01-23 11:37 | Day surgery (SDC) | payer OTHER, MEDICARE, SELFPAY ==
[2024-01-23 11:50] VITALS: BP 146/75; PULSE 76; RESP 16; TEMP 36.7; O2SAT 96; BMI 34.9
[2024-01-23 11:57] VITALS: BP 127/83; PULSE 74; PULSE 76; RESP 18; O2SAT 95; O2SAT 96
[2024-01-23] MEDS: methylPREDNISolone ACETATE 80MG/ML VIAL 80 MG (11:57)
--- NOTE | 2024-01-23 12:04 | EXP.PAIN.PRO ---
Procedure Date: 01/23/24 Time: 12:00 Anesthesiologist:: Garrick Fernandez CRNA Complications:: None Pre-procedure Diagnosis:: Degenerative disc lumbar spine multilevels. Lumbar radiculopathy. Lumbar spondylosis. Multilevel lumbar facet arthropathy. Lumbar postlaminectomy syndrome. Post-procedure Diagnosis:: Same. Indications for Procedure:: Patient is a very pleasant 58-year-old female who comes to clinic today for her third lumbar epidural steroid injection at L3-4 level. Patient reporting 6 to 8 weeks of relief with each injection prior to today. She describes her low back pain as constant, dull, aching. Also, some bilateral hip and leg radicular symptoms. She rates her pain today 7/10. Procedure Details:: Procedure: Lumbar epidural steroid injection under fluoroscopy Informed consent was obtained and the risks and benefits of the procedure were explained to the patient. The patient was taken to the procedure room and noninvasive monitors placed, including noninvasive blood pressure cuff and pulse oximeter. The back was viewed using C-arm Fluoroscopy and prepped using Chloraprep as a cleansing solution and the L3-4 interspace was palpated. Skin and subcutaneous tissues were anesthetized using lidocaine 1.5% and a 25-gauge needle. After this, an 18-gauge Touhy epidural needle was placed into the L3-4 interspace and advanced using fluoroscopic guidance and loss of resistance to air until the epidural space was encountered. After confirmation of needle placement in the epidural space, with dye, a solution containing normal saline, 3 mL and Depo-Medrol 80 mg were incrementally injected into the lumbar epidural space. The patient tolerated the procedure well with no complications. The patient was observed in the Pain Clinic and then discharged home neurologically intact. Plan and Disposition:: Patient was discharged without incident.
[2024-01-23 12:05] VITALS: BP 141/84; PULSE 75; RESP 16; O2SAT 96
== END 2024-01-23 12:03 | disposition home or self-care (01) ==
PROVIDERS: PCP Internal Medicine Adolescent Medicine; Visit Provider Nurse Anesthetist, Certified Registered
DX: M51.16 Intervertebral disc disorders with radiculopathy, lumbar region (principal); M47.26 Other spondylosis with radiculopathy, lumbar region; M96.1 Postlaminectomy syndrome, not elsewhere classified
CPT/HCPCS: 62323; J1010

== ENCOUNTER 2024-06-03 14:12 | Outpatient (CLI) | payer MEDICARE, BC, SELFPAY ==
--- NOTE | 2024-06-03 14:15 | MM_ITS ---
PROCEDURE INFORMATION: Exam: MG Bilateral Screening 3D Mammography Exam date and time: 06/03/2024 2:01 PM Age: 59 years old Clinical indication: Screening examination TECHNIQUE: Imaging protocol: Bilateral Screening tomosynthesis and 2D mammography including computer-aided detection (CAD) when performed. COMPARISON: 1. MG MM DIG SCREENING MAMM BI W/CAD 04/04/2023 10:46 AM 2. MG MM DIG MAMM DX UNILAT LT CAD 01/14/2022 2:42 PM FINDINGS: MAMMOGRAPHY: Breast composition: There are scattered areas of fibroglandular density. Mass: No suspicious masses. Architectural distortion: None. Calcifications: No suspicious calcifications. Asymmetric density: None. Skin thickening: None. Axillary adenopathy: None. IMPRESSION: No mammographic evidence of malignancy. Annual screening is recommended unless otherwise clinically indicated. ASSESSMENT: BI-RADS Category 1: Negative.
== END 2024-06-03 23:59 | disposition home or self-care (01) ==
LOC: RAD 14:13
PROVIDERS: PCP Internal Medicine Adolescent Medicine; Visit Provider Nurse Practitioner Family
DX: Z12.31 Encounter for screening mammogram for malignant neoplasm of breast (principal)
CPT/HCPCS: 77063; 77067

== ENCOUNTER 2024-06-18 11:19 | Outpatient (CLI) | payer BC, MEDICARE, SELFPAY ==
--- NOTE | 2024-06-18 11:22 | CA_ITS ---
APPROVED REPORT EXAM: Comprehensive 2D, Doppler, and color-flow Echocardiogram Shell Trim Tool Setter: Rubia Baldwin RVT Ht: 5 ft 8 in Wt: 241lbs BSA: 2.21 BP: 135/90 mmHg Indications: A-FIB,CHEY,DD,HTN 2D Dimensions LA Volume 44.60 mL LA Volume Index 20.18 mL/m2 (M/F) 16-34 M-Mode Dimensions RVDd 2.42 cm (0.9-2.6) LA Diam 3.26 cm (1.9-4.0) LVDd 4.87 cm (3.5-5.7) LVDs 3.05 cm (3.5-5.7) IVSd 1.06 cm (0.6-1.1) PWd 0.68 cm (0.6-1.1) EF (Teich) 67.30% FS 37.40% EDV (Teich) 111.20 mL TAPSE 1.82 (<1.7) ESV (Teich) 36.40 mL LV Diastology E Decel Time 220 (160-240 msec) E/A Ratio 0.9 Aortic Valve LETY Index 1.14 cm2/m2 AoV Peak Roverto. 111.0 (50-130 cm/s) AO Peak GR. 4.90 mmHg AO Mean GR. 2.80 (<5 mmHg) AO VTI 24.4 (18-25 cm) LETY (VTI) 2.58 (2.5-4.5 cm2) Mitral Valve MV E Max Roverto. 59.0 (40-130 cm/s) MV A Velocity 66.0 (40-130 cm/s) E/A Ratio 0.89 MV PHT 64.0 ms Pulmonary Valve PV Peak Velocity 63.0 (50-150 cm/s) Tricuspid Valve TR P. Velocity 253.00 cm/s RAP Estimate 10.00 mmHg RVSP 35.60 mmHg Left Ventricle The left ventricle is normal size. The left ventricular systolic function is mildly reduced. There is increased LV wall thickness. There is normal LV segmental wall motion. Grade 1 diastolic dysfunction is present. LVEF of 45%. Right Ventricle The right ventricle is mildly dilated. Right ventricle is mildly hypokinetic. Atria The left atrium size is normal. The right atrium size is normal. There is no Doppler evidence of interatrial shunt. Aortic Valve Aortic valve is mildly thickened. There is no aortic valvular stenosis. No aortic regurgitation is present. Mitral Valve The mitral valve is normal in structure. No evidence of mitral valve stenosis. Trace mitral regurgitation. Tricuspid Valve The tricuspid valve leaflets are thin and pliable. There is no tricuspid valve stenosis. Mild tricuspid regurgitation. RVSP is 25-30 mmHg. Pulmonic Valve The pulmonary valve is normal in structure. Trace pulmonic regurgitation. Great Vessels The aortic root is normal in size. IVC is normal in size and collapses >50% with inspiration. Pericardium There is no pericardial effusion. Other Information Study Quality: Fair Conclusion Mildly reduced LV systolic function (LVEF 45%). Mild RV dilation with mild reduction in RV function. Mild TR. In the setting of mildly reduced LV systolic function, further evaluation with cardiac MRI ( cardiomyopathy protocol) is suggested. Electronically signed by : Sagrario Tyson MD 06/23/2024 22:51:35
== END 2024-06-18 23:59 | disposition home or self-care (01) ==
LOC: RT 11:21
PROVIDERS: PCP Internal Medicine Adolescent Medicine; Visit Provider Physician Assistant
DX: I36.1 Nonrheumatic tricuspid (valve) insufficiency (principal); I48.0 Paroxysmal atrial fibrillation; I51.9 Heart disease, unspecified
CPT/HCPCS: 93306

== ENCOUNTER 2024-07-03 09:43 | Outpatient (CLI) | payer BC, MEDICARE, SELFPAY ==
[2024-07-03 10:34] LABS: Blood Urea Nitrogen 20 mg/dl (7-17); Estimated Glomerular Filt Rate 73 ml/min (>60); GFR (African American) 89 ML/MIN (>60)
[2024-07-03] MEDS: 0.9 % SODIUM CHLORIDE 50 ML VIAL 20 ML IV (11:18)
[2024-07-03] MEDS: SODIUM CHLORIDE 0.9% 10ML SYR (RAD ONLY) 10 ML IV (11:18)
[2024-07-03] MEDS: GADOTERIDOL INJ 10ML SYRINGE 4 ML IV (11:18)
[2024-07-03] MEDS: GADOTERIDOL INJ 20ML SYRINGE 20 ML IV (11:19)
== END 2024-07-03 23:59 | disposition home or self-care (01) ==
PROVIDERS: PCP Internal Medicine Adolescent Medicine; Visit Provider Physician Assistant
DX: I11.0 Hypertensive heart disease with heart failure (principal); I50.20 Unspecified systolic (congestive) heart failure; I48.0 Paroxysmal atrial fibrillation; R42 Dizziness and giddiness
CPT/HCPCS: 36415; 75561; 82565; 84520; A9576

== ENCOUNTER 2024-07-30 09:18 | Outpatient (CLI) | payer BC, MEDICARE, SELFPAY ==
--- NOTE | 2024-07-30 09:25 | XR_ITS ---
FINAL REPORT TECHNIQUE: Bone mineral density was calculated of the lumbar spine and hip. CLINICAL HISTORY: SCREENING COMPARISON: 07/09/2019 FINDINGS: Using L1-4, the bone mineral density of the spine is 1.049 g/cm2, corresponding to T-score of 0.0. Using the left hip, the bone mineral density of the femoral neck is 0.924 g/cm2, corresponding to a T-score of -0.1. Using the right hip, the bone mineral density of the femoral neck is 0.826 grams per centimeter squared, corresponding to a T-score of -0.2. NOTE: T-score: Standard deviation compared with peak bone mass of young adult mean. *Following the recommendations of the International Society of Bone densitometry, classification of hip BMD is based on the lower of two T-scores; total hip or femoral neck. IMPRESSION: Normal bone mineral density of the lumbar spine and bilateral hips. Reviewed, Interpreted and Dictated by Pato Dorsey MD Transcribed by Pia Lerma Authenticated and [facility]
--- NOTE | 2024-07-30 10:10 | XR_ITS ---
FINAL REPORT CLINICAL HISTORY: RHEUMALOID ARTHRITIS MULTIPLE SITES...PARESTHESIA FINDINGS: CERVICAL SPINE Five views were obtained. There is no acute fracture. There is anterior and interbody fusion of C4-5 and C5-6. There are advanced changes of degenerative disc disease involving C3-4 and C6-7. Significant bilateral neuroforaminal narrowing is seen at C3-4. There is minimal spondylolisthesis of C3 on 4. IMPRESSION: Degenerative and postsurgical changes. THORACIC SPINE Three views were obtained. There is no acute fracture. There is thoracic scoliosis convex to the right measuring 15 degrees. Moderate anterior osteophytes are seen throughout in the mid and lower thoracic spine. The disc spaces are well-preserved. There is no malalignment. IMPRESSION: Degenerative changes as above. Reviewed, Interpreted and Dictated by Pato Dorsey MD Transcribed by Mami Mccarthy Authenticated and [facility]
== END 2024-07-30 23:59 | disposition home or self-care (01) ==
LOC: RAD 09:19
PROVIDERS: PCP Internal Medicine Adolescent Medicine; Visit Provider Nurse Practitioner Family
DX: M85.88 Other specified disorders of bone density and structure, other site (principal); Z78.0 Asymptomatic menopausal state
CPT/HCPCS: 72084; 77080

== ENCOUNTER 2024-08-21 12:54 | Outpatient (CLI) | payer BC, MEDICARE, SELFPAY ==
--- NOTE | 2024-08-21 12:57 | MR_ITS ---
FINAL REPORT TECHNIQUE: Multiplanar MR without gadolinium enhancement CLINICAL HISTORY: CERVICAL STENOSIS/*SCREWS IN LT FOOT*.bilateral arm and hand numbness. right arm pain. no injury or trauma. prior surgery in 2012 COMPARISON: None FINDINGS: Limited images of the posterior fossa are unremarkable. There is retrolisthesis of C3 on C4 of 3 mm. The patient has undergone a prior anterior cervical fusion from C4-C6. Cervical spinal cord shows normal signal and contour. C2-3: There is mild bony left neural foraminal narrowing. No central canal stenosis is identified. C3-4: A mild annular bulge is present with moderate bilateral neuroforaminal narrowing, without central canal stenosis. C4-5: No central canal stenosis or neural foraminal narrowing is present. C5-6: There is mild bony hypertrophic change without central canal stenosis or neural foraminal narrowing. C6-7: A moderate annular bulge is present with borderline canal stenosis and mild neural foraminal narrowing. C7-T1: There is a mild annular bulge with facet arthropathy, mild central canal stenosis, and moderate bilateral neural foraminal narrowing. IMPRESSION: There is mild canal stenosis of the lower cervical spine, with multilevel neural foraminal narrowing. There is degenerative subluxation of C3 on C4 as described. Reviewed, Interpreted and Dictated by Lynda Lainez MD Transcribed by Pia Lerma Authenticated and [facility]
== END 2024-08-21 23:59 | disposition home or self-care (01) ==
LOC: RAD 12:55
PROVIDERS: PCP Internal Medicine Adolescent Medicine; Visit Provider Nurse Practitioner Family
DX: M48.02 Spinal stenosis, cervical region (principal)
CPT/HCPCS: 72141

== ENCOUNTER 2024-08-27 10:38 | Outpatient (CLI) | payer BC, MEDICARE, SELFPAY ==
--- NOTE | 2024-08-27 10:42 | XR_ITS ---
FINAL REPORT CLINICAL HISTORY: wrist pain COMPARISON: None FINDINGS: LEFT WRIST THREE VIEW FINDINGS: Three views demonstrate resection of the trapezium. There is moderate degenerative change of the base of the first metacarpal and trapezoid bone. Minimal chondrocalcinosis of the TFCC is present. IMPRESSION: Arthritic changes of the base of the first metacarpal post trapezium resection. Reviewed, Interpreted and Dictated by Lynda Lainez MD Transcribed by Pia Lerma Authenticated and [facility]
--- NOTE | 2024-08-27 10:42 | XR_ITS ---
FINAL REPORT CLINICAL HISTORY: wrist pain COMPARISON: None FINDINGS: RIGHT WRIST THREE VIEW FINDINGS: Three views show no evidence of an acute, displaced fracture or dislocation of the visualized bony architecture. The joint spaces appear normal. IMPRESSION: Unremarkable exam. Reviewed, Interpreted and Dictated by Lynda Lainez MD Transcribed by Pia Lerma Authenticated and [facility]
== END 2024-08-27 23:59 | disposition home or self-care (01) ==
LOC: RAD 10:40
PROVIDERS: PCP Internal Medicine Adolescent Medicine; Visit Provider Physician Assistant Surgical
DX: M25.531 Pain in right wrist (principal); M25.532 Pain in left wrist
CPT/HCPCS: 73110

== ENCOUNTER 2024-11-13 09:16 | Outpatient (CLI) | payer BC, MEDICARE, SELFPAY ==
--- OUTSIDE RECORDS SUMMARY | 2024-09-19 13:00 | XMS_ITS | Encounter Summary ---
Author Organization [employer] Address [address] [address] Care Team Providers Care Hair Boiler Operator Name Role Phone Unavailable Primary Care Provider Unavailabl e Reason for Referral * Surgical (Routine) - Closed Specialty Diagnoses / Procedures Referred By Howie rondon Referred To Contact Orthopedic Surgery Diagnoses Right arm pain Kristen Leach PA-C [address] [place] [address] Phone: tel: fax: [facility] - [address] [place] [address] Phone: tel: fax: Referral ID Status Reason Start Date Expiration Date V isits Requested Visits Authorized [id number] Closed Specialty Services Required 09/19/2024 09/19/2025 1 1 Scheduling Instructions [facility] if covered by insurance Reason for Visit * Reason Comments Follow-up Encounter Details Date Type Department Care Team (Late st Contact Info) Description 09/19/2024 1:00 PM EDT Office Visit [facility] Neurology - [facility] [address] [facility] [address] [place] [address] Anshul Banks MD [address] [place] [address] Carpal tunnel syndrome (Primary Dx); Lumbar radiculopathy; Right arm pain Social History Tobacco Use Types Packs/Day Years Used Date Smoking Tobacco: Never Smokeless Tobacco: Never Tobacco Cessation:Counseling Given: Not Answered Alcohol Use Standard Drinks/Week Comments Never 0 (1 standard drink = 0.6 oz pur e alcohol) Interpersonal Safety Answer Date Record ed Family or friends hurt you Not on file 06/09 Family or friends insult you Not on file Family or friends threaten you Not on file 0 06/09/2023 Family or friends scream or curse at you Not on file 06/09/2023 Housing Stability Answer Date Recorded Living situation today Not on file Living situation problems Not on file 2023 Family and Community Support Answer Yovanny e Recorded Help with Day to Day Activities Not on file 06/09/2023 Feeling Lonely or Isolated Not on file 06/09 Educational Attainment Answer Date Francis rded Speak language other than Nigerian at home Not on file 06/09/2023 Want help with school or training Not on file 06/09/2023 Depression Answer Date Recorded PHQ-2 Risk Not on file 06/09/2023 Disabilities Answer Date Recorded Difficulty concentrating Not on file 024 Difficulty doing errands alone Not on file 0 06/09/2023 Substance Use Answer Date Recorded Used prescription meds for non-medical reasons N ot on file 06/09/2023 Used illegal drugs past 12 months Not on file 06/09/2023 Comments Unknown Sex and Gender Information Value Date Recorded Sex Assigned at Not on file Legal Sex Female 1:06 PM CDT Gender Identity Not on file Sexual Orientation Not on file documented as of this encounter Last Filed Vital Signs Vital Sign Reading Time Taken Comments Blood Pressure 146/89 09/19/2024 1:07 PM EDT Pulse 87 09/19/2024 1:07 PM EDT Temperature - - Respiratory Rate - - Oxygen Saturation - - Inhaled Oxygen Concentration - - Weight 107.5 kg (237 lb) 09/19/2024 1:07 PM EDT Height 172.7 cm (5' 8 ) 09/19/2024 1:07 PM EDT Body Mass Index 36.04 09/19/2024 1:07 PM EDT documented in this encounter Progress Notes * Kristen Leach PA-C - 09/19/2024 1:00 PM EDT NEUROSURGERY CONSULT NOTE Primary Care Provider: No primary care provider on file. History of Present Illness Neeru Samano is a 59 y.o. female presenting with complaints of continued low back pain with radiation to right lower extremity in addition to pain to right shoulder with radiation to proximal right upper extremity and left hand numbness and paresthesia. Patient presents with completed cervical MRIon 08/21/[address] on 06/23/2023 through [facility]. Since her last appointment on 10/26/2023, patient reports her lumbar complaints are relatively unchanged, though may be slightly decreased in intensity. Patient continues to report right-sided low back pain with radiation to right anterior thigh as well as posterior right thigh and calf. Patient was followed by pain management with reported relief at first with her relief being minimal at this point time. Patient manages her symptoms with [place] 7.5mg and gabapentin 400mg QID. Patient denies bowel/bladder incontinence, saddle anesthesia and lower extremity weakness. Patient additionally reports onset of right shoulder pain with radiation to right proximal upper extremity with termination to the proximal right forearm. Patient denies radiation from her neck. Although the patient's above complaints are bothersome, her most bothersome symptom is burning, numbnessand paresthesia to her left hand. Occasionally, patient notes her pain will radiate to the left forearm from her hand. Patient notes her symptoms are constant, though her left hand most specifically wakes her up at night secondary to the intensity. Patient denies physical therapy or injections for cervical spine. Patient denies dexterity issues including difficulty with buttons, dropping objects or opening jars. Patient denies gait instability. Review of Systems Review of Systems Gastrointestinal: Denies bowel incontinence Genitourinary: Denies bladder incontinence and saddle anesthesia Musculoskeletal: Positive for back pain. Bilateral upper and lower extremity pain. See HPI for details. Past Medical History She has a past medical history of Arthritis, Atrial fibrillation ([facility]) (2014), Diabetes (), Fibromyalgia, Hypertension, Low back pain (1993), Rheumatoid arthritis (HCC) (2015), and Sleep apnea. Past Surgical History She has a past surgical history that includes Spine surgery (1993); Spine surgery (1997); Foot Fusion; Shoulder surgery; Neck surgery; and Cholecystectomy. Family History She family history includes High blood pressure in an other family member. Allergies Penicillins Medications (Not in a hospital admission) Vitals Blood pressure (!) 146/89, pulse 87, height 1.727 m (5' 8 ), weight 107.5 kg (237 lb). Physical Exam Physical Exam HENT: Head: Normocephalic. Eyes: Extraocular Movements: Extraocular movements intact. Pulmonary: Effort: Pulmonary effort is normal. Musculoskeletal: General: Normal range of motion. Cervical back: Normal range of motion. Comments: RUE: Deltoid 5/5, Biceps 5/5, Triceps 5/5, Safety Glass Installer 5/5, Intrinsics 5/5 LUE: Deltoid 5/5, Biceps 5/5, Triceps 5/5, Safety Glass Installer 5/5, Intrinsics 5/5 RLE: Hip Flexion 5/5, Knee Extension 5/5, Dorsiflexion 5/5, Extensor Hallucis Longus 5/5, Plantar Flexion 5/5 LLE: Hip Flexion 5/5, Knee Extension 5/5, Dorsiflexion 5/5, Extensor Hallucis Longus 5/5, Plantar Flexion 5/5 Lopez sign negative, bilaterally RUE: Biceps 2+, Brachioradialis 2+, Triceps 2+ LUE: Biceps 2+, Brachioradialis 2+, Triceps 2+ RLE: Patella 2+, Achilles 2+ LLE: Patella 2+, Achilles 2+ Skin: General: Skin is warm. Neurological: Mental Status: She is alert and oriented to person, place, and time. Imaging Results I personally reviewed the imaging with Dr. Banks and discussed the below findings. Cervical MRI was completed through [facility] on 08/21/2024 and brought in on a disk to reveal degenerative changes without obvious neural impingement. EMG completed through [facility] 08/20/2024 revealed evidence of left greater than right carpal tunnel syndrome. 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 Assessment & Plan Neeru Samano is a 59 y.o. female presenting with complaints of continued low back pain with radiation to right lower extremity in addition to pain to right shoulder with radiation to proximal right upper extremity and left hand numbness and paresthesia. Patient presents with completed cervical MRIon 08/21/[address] on 06/23/2023 through [facility]. 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 Regarding her upper extremity complaints, there does not appear to be obvious pathology from her cervical spine contrib uting to her symptoms. We would like patient to undergo evaluation via orthopedics for her right shoulder given history of previous surgery and this symptom presentation. Regarding patient's left hand, EMG confirmed carpal tunnel syndrome, which supports patient's pain distribution. Patient is a candidate for carpal tunnel release of the left hand. The procedure was outlined in detail by Dr. Banks. Patient is expected to not use her hand for up to 2 weeks to follow the procedure in order to support the healing process. Patient is agreeable and would like to proceed. Patient to meet with Ivon, our oil deliverer, during today's visit. Patient to contact our clinic with questions or concerns in the meantime. Cosigned by Anshul Banks MD at 09/23/2024 8:41 AM EDT documented in this encounter Plan of Treatment Upcoming Encounters Date Type Department Care Team (Late st Contact Info) Description 12/17/2024 1:30 PM EDT Office Visit [facility] - [address] [place] [address] Dominic Oliva PA-C [address] [place] [id number] Scheduled Referrals Name Type Priority Associated Diagnoses Order Schedule Ambulatory referral to Orthopedic Surgery Outpatient Referral Routine Right arm pain Expected: 09/19/2024, Expires: 09/19/2025 documented as of this encounter Visit Diagnoses Diagnosis Carpal tunnel syndrome- Primary Lumbar radiculopathy Thoracic or lumbosacral neuritis or radiculitis, unspecified Right arm pain Pain in soft tissues of limb documented in this encounter
--- OUTSIDE RECORDS SUMMARY | 2024-10-22 14:15 | XMS_ITS | Encounter Summary ---
Author Organization [employer] Address [address] [place] [address] Care Team Providers Care Hardwood Floor Finisher Name Role Phone Dominic Oliva PA-C Unavailable [phone] Reason for Referral * MRI (Routine) - Authorized Specialty Diagnoses / Procedures Referred By Howie rondon Referred To Contact Radiology Diagnoses Internal derangement of right shoulder History of arthroscopic surgery of shoulder Tear of right supraspinatus tendon Procedures MR upper extremity joint only with contrast right Dominic Oliva PA-C [address] [place] [address] Phone: tel: fax: [address] [place] [address] Phone: tel: Referral ID Status Reason Start Date Expiration Date V isits Requested Visits Authorized [id number] Authorized 10/22/2024 10/22/2025 1 1 * Flouroscopy (Routine) - Authorized Specialty Diagnoses / Procedures Referred By Howie rondon Referred To Contact Diagnoses Internal derangement of right shoulder History of arthroscopic surgery of shoulder Tear of right supraspinatus tendon Procedures FL arthrogram shoulder right Dominic Oliva PA-C [address] [place] [address] Phone: tel: fax: [address] [place] [address] Phone: tel: Referral ID Status Reason Start Date Expiration Date V isits Requested Visits Authorized [id number] Authorized 10/22/2024 10/22/2025 1 1 * Diagnostic X-Ray (Routine) - Closed Specialty Diagnoses / Procedures Referred By Howie rondon Referred To Contact Radiology Diagnoses Right arm pain Procedures XR shoulder complete 2 views min right Dominic Oliva PA-C [address] [place] [address] Phone: tel: fax: [facility] - [address] [place] [address] Phone: tel: fax: Referral ID Status Reason Start Date Expiration Date Visits Re quested Visits Authorized [id number] Closed 10/22/2024 10/22/2025 1 1 Reason for Visit * Reason Comments New Patient: Right arm pain * Surgical (Routine) - Closed Specialty Diagnoses / Procedures Referred By Howie rondon Referred To Contact Orthopedic Surgery Diagnoses Right arm pain Kristen Leach PA-C [address] [place] [address] Phone: tel: fax: [facility] [address] [address] Phone: tel: fax: Referral ID Status Reason Start Date Expiration Date V isits Requested Visits Authorized [id number] Closed Specialty Services Required 09/19/2024 09/19/2025 1 1 Encounter Details Date Type Department Care Team (Late st Contact Info) Description 10/22/2024 2:15 PM EDT Office Visit [facility] [address] [address] Dominic Oliva PA-C [address] [place] [address] Right arm pain (Primary Dx); Internal derangement of right shoulder; History of arthroscopic surgery of right shoulder; Partial tear of right supraspinatus tendon; Right shoulder pain Social History Tobacco Use Types Packs/Day Years Used Date Smoking Tobacco: Never Smokeless Tobacco: Never Alcohol Use Standard Drinks/Week Comments Never 0 [...] Date Francis rded Speak language other than Bolivian at home Not on file 06/09/2023 Want [...] Sign Reading Time Taken Comments Blood Pressure 113/76 10/22/2024 2:34 PM EDT Pulse 79 10/22/2024 2:34 PM EDT Temperature - - Respiratory Rate - - Oxygen Saturation - - Inhaled Oxygen Concentration - - Weight 107.5 kg (237 lb) 10/22/2024 2:34 PM EDT Height 172.7 cm (5' 8 ) 10/22/2024 2:34 PM EDT Body Mass Index 36.04 10/22/2024 2:34 PM EDT documented in this encounter Progress Notes * Dominic Oliva PA-C - 10/22/2024 2:15 PM EDT Images from the original note were not included. NAME: Neeru Samano CSN: [id number] : 1965 PCP: No primary care provider on file. REASON FOR VISIT New Patient: Right arm pain HPI Neeru Samano is a 59 y.o. female HPI New Patient Right Shoulder Onset: around the beginning of the year Mechanism of injury: Denies Location of pain: humerus Quality of pain: numbness, throbbing, and tingling Mechanical Symptoms: Denies Radiation of pain: into the radial side of the arm Severity of pain: 8/10 Worse with: any use of the RUE Better with: Denies Oral treatments tried: acetaminophen and Ibuprofen Topical treatments tried: compound cream Previous injections: Denies Prior history of shoulder pain: Denies How long did the most recent injection last: Denies Previous shoulder surgery: around 2012 Right shoulder scope Patient is scheduled for left carpal tunnel release on 10/25/24 CURRENT MEDICATIONS Current Outpatient Medications Medication Instructions aspirin 81 mg, Daily bisoprolol (ZEBETA) 5 mg, Daily buPROPion XL (WELLBUTRIN XL) 150 mg, Every morning citalopram (CELEXA) 40 mg, Daily dilTIAZem (CARDIZEM CD) 120 mg, Daily EnbreL SureClick 50 mg/mL (1 mL) PnIj 1 Syringe, Weekly esomeprazole (NEXIUM) 40 mg, Daily gabapentin (NEURONTIN) 800 mg, 2 times daily hydroCHLOROthiazide (HYDRODIURIL) 12.5 mg, Daily HYDROcodone-acetaminophen (NORCO 7.5-325) 7.5-325 mg per tablet 1 tablet, 4 times daily PRN Jardiance 25 mg, Every morning leflunomide (ARAVA) 20 mg, Daily losartan (COZAAR) 50 mg, Daily Trulicity 4.5 mg/0.5 mL syringe Inject subcutaneously. Xarelto 20 mg tablet SMARTSI Tablet(s) By Mouth Every Evening ALLERGIES Allergies Allergen Reactions Penicillins Rash Other reaction(s): Hives PAST MEDICAL/SURGICAL HISTORY Past Medical History: Diagnosis Date Arthritis Atrial fibrillation ([facility]) 2015 Carpal tunnel syndrome 2-25 Diabetes ([facility]) Fibromyalgia Fibromyositis 2018 Hypertension Low back pain 1994 Myocardial infarction ([facility]) 2015 Afib Rheumatoid arthritis ([facility]) 2016 Sleep apnea Past Surgical History: Procedure Laterality Date BACK SURGERY 1997 2back surgeries CHOLECYSTECTOMY FOOT FUSION FOOT SURGERY 2019 Ankle fusion NECK SURGERY SHOULDER SURGERY SPINAL FUSION 1998 SPINE SURGERY 1994 Lumbar fusion SPINE SURGERY 1998 Lumbar bone cage SOCIAL HISTORY Social History Substance and Sexual Activity Alcohol Use Never Social History Substance and Sexual Activity Drug Use Never Tobacco Use History and Evaluation: Neeru Samano is a 59 y.o. female who is being counseled for smoking/tobacco cessation. Social History Tobacco Use Smoking Status Never Smokeless Tobacco Never FAMILY HISTORY Family History Problem Relation Name Age of Onset High blood pressure Other REVIEW OF SYSTEMS ROS Systemic: Not feeling tired. No fever and no chills. Head: No headache and no sinus pain. Otolaryngeal: No new hearing loss and no nasal passage blockage (stuffiness) within the last 24 hours. Cardiovascular: No chest pain or discomfort and no palpitations. Pulmonary: No dyspnea, wheezing or new cough within the last 24 hours. Gastrointestinal: No heartburn. No nausea. Genitourinary: No urinary loss of control. Endocrine: No temperature intolerance and no new muscle weakness. Musculoskeletal: Musculoskeletal symptoms See HPI. Neurological: No tremor. Psychological: No new anxiety and no recent insomnia. Skin: No localized skin discoloration and no rash. OBJECTIVE Vitals: 10/22/24 1434 BP: 113/76 Pulse: 79 Weight: 107.5 kg (237 lb) Height: 1.727 m (5' 8 ) Body mass index is 36.04 kg/m??. BMI Plan: High BMI-Exercise counseling provided Ortho Exam Constitutional: She appears well-developed and well-nourished. Head: Normocephalic and atraumatic. Eyes: No scleral icterus. Neck: No edema and normal range of motion present. Pulmonary/Chest: Effort normal. No accessory muscle usage. No respiratory distress. Neurological: She is alert and cooperative Skin: Skin is warm and dry. No rash noted. Psychiatric: She has a normal mood and affect. Her behavior is normal. Clinical wet process miller head assistant note and vitals reviewed Right shoulder Inspection: equal muscular bulk, no atrophy, no swelling, no redness, no deformity, no shoulder sag. No resting sulcus at glenohumeral joint Palpation: Anterior Shoulder: tender Posterior Shoulder: non-tender A/C Joint: tender Biceps tendon: tender Deltoid: non-tender Trapezius: non-tender Range of motion: Abduction 90 degrees with pain Forward Elevation 90 degrees with pain Internal Rotation (with elbow flexed to 90 at pt's side) 70 degrees External Rotation (with elbow flexed to 90 at pt's side) 10 degrees with mild pain Strength: Abduction 4/5 Forward Flexion 4/5 Biceps 4/5 Internal Rotation 4/5 External Rotation 4/5 Neurovascular: Brachial pulse 2+ Radial pulse 2+ Sensation Intact Supraspinatus/Impingement: Empty Can Test: Positive Rocha-Brad: Negative Neer impingement: Positive AC joint Modified Cross Arm: Positive Labrum Lanier's: Negative Anterior apprehension: Negative Crank Test: Positive Glenohumeral: Compression Rotation Positive IMAGING/OUTSIDE REPORTS 10/22/2024 XR shoulder complete 2 views min right Narrative: Right shoulder HISTORY: Right shoulder pain FINDINGS: 3 views. Joint compartments appear maintained and are normally aligned. There are no acute or old fractures. There are no significant degenerative changes. Impression: Negative. ULTRASOUND 10/22/2024 Examination: Point of Care Ultrasound of the right shoulder Findings: All structures were viewed in both long and short axis The long head of the biceps branchii appear normal without tendinosis, tear, tenosynovitis, or subluxation with dynamic testing. Small tear drop sign The subscapularis appear normal without tendinosis, tear, and tenosynovitis. No impingement on the coracoid noted with internal rotation of the shoulder The acromioclavicular joint is unremarkable. The supraspinatus appears thin and hypoechoic along the insertion onto the superior facet of the greater tubercle of the humerus The infraspinatus appears normal along the insertion onto the middle facet of the glenoid tubercle Subacromial-subdeltoid bursa with fluid No subacromial impingement noted with dynamic testing The teres minor appear normal without tendinosis, tear, and tenosynovitis The posterior labrum is unremarkable. No bunching noted with external rotation of the shoulder No evidence of a joint effusion Interpretation: Findings suggestive of supraspinatus partial tear with subacromial subdeltoid bursitis - Ultrasound was performed and interpreted by myself, and the findings above reflect my interpretation - Images obtained and saved on the [facility] Orthopedic ultrasound machine Dominic Oliva PA-C ASSESSMENT Diagnoses and all orders for this visit: Right arm pain - XR shoulder complete 2 views min right; Future Internal derangement of right shoulder - FL arthrogram shoulder right; Future - MR upper extremity joint only with contrast right; Future History of arthroscopic surgery of right shoulder - FL arthrogram shoulder right; Future - MR upper extremity joint only with contrast right; Future Partial tear of right supraspinatus tendon - FL arthrogram shoulder right; Future - MR upper extremity joint only with contrast right; Future DISCUSSION Discussed with the patient regarding rotator cuff tears. Natural history depends upon patient factors and biologic factors related to the muscle-tendon unit. Smaller, partial-thickness tears in lower-demand patients may do well with nonsurgical management. Tears of any size in higher-demand patients MAY lead to chronic pain and weakness if left untreated. The extent of irreversible muscle atrophydepends upon chronicity, tear size, patient age and comorbidities. Arthritis of shoulder Discussed pathophysiology, anatomy, progression and treatment options of shoulder joint osteoarthritis. Osteoarthritis is commonly known as wear and tear in a joint. These symptoms can occur after trauma, but most of the time they occur as the patient ages. There is no definitive non- surgical treatment for arthritis and thus treatment focuses on modifying the patient's symptoms with conservative treatments, including ice, rest, NSAIDs, cortisone injections and PT. If patient does not respond to adequate conservative therapy or pain from osteoarthritis is affecting the patient's daily living, then surgical intervention may be appropriate. Surgical intervention includes but is not limited to the following: arthroscopic debridement, total shoulder arthroplasty, reverse total shoulder arthroplasty. Patient verbalized their understanding. PLAN Rest the extremity Heating pad for 20 minutes 2-3 times a day Discussed and ordered MRI of the right shoulder; in basket message sent to Ana for scheduling Deferred injection at this time due to upcoming surgery on 10/25/[address] Banks Advised to bring MRI disc from [facility] Explanation of plan: Based on patient's history, physical exam, review of radiology exams Neeru has history of right shoulder arthroscopy. She is unclear of the exact extent of her surgery which occurred in 2012. Bedside ultrasound revealed evidence of possible supraspinatus partial tear and thinning of the tendon. She is scheduled to have left carpal tunnel surgery 10/25/[address] Banks. I do not recommend steroid injection at this time due to upcoming surgery and also risk of rupture to thesupraspinatus tendon. We will order advanced imaging with MRI for further evaluation for possible surgical planning. Patient was agreeable with this plan. Will follow-up after MRI to discuss results. Return to clinic if condition worsens or new symptoms arise Return for Right shoulder MRI results. I, Dominic Oliva PA-C, personally performed the services described in this documentation, as scribed by Deborah Eisenberg CMA , in my presence, and is both accurate and complete. Electronically Signed, Dominic Oliva PA-C 10/23/2024 11:43 AM Parts of this document/medical record have been dictated via [employer] speech recognition software, which may cause errors in spelling or accurate dictation. Attempts have been madeto proofread and correct all errors. Please contact me with any questions. documented in this encounter Plan of Treatment Upcoming Encounters Date Type Department Care Team (Late st Contact Info) Description 12/17/2024 1:30 PM EDT Office Visit [facility] - [address] [place] [address] Dominic Oliva PA-C [address] [place], [place] [id number] Scheduled Orders Name Type Priority Associated Diagnoses Orde r Schedule FL arthrogram shoulder right Imaging Routine Internal derangement of right shoulder History of arthroscopic surgery of right shoulder Partial tear of right supraspinatus tendon Expected: 10/22/2024, Expires: 10/22/2025 MR upper extremity joint only with contrast right Imaging Routine Internal derangement of right shoulder History of arthroscopic surgery of right shoulder Partial tear of right supraspinatus tendon Expected: 10/22/2024, Expires: 10/22/2025 documented as of this encounter Procedures Procedure Name Priority Date/Time Associated Diagnosis Comments US EXTREMITY NON-VASCULAR LIMITED RIGHT Routine 10/23/2024 7:57 AM EDT Right shoulder pain documented in this encounter Results * US extremity non-vascular limited right (10/23/2024 7:57 AM EDT) Anatomical Region Laterality Modality Upper Extremity, Lower Extremity Ultrasound Impressions 10/23/2024 7:57 AM EDT Examination: Point of Care Ultrasound of the right shoulder Findings: All structures were viewed in both long and short axis The long head of the biceps branchii appear normal without tendinosis, tear, tenosynovitis, or subluxation with dynamic testing. Small tear drop sign The subscapularis appear normal without tendinosis, tear, and tenosynovitis. No impingement on the coracoid noted with internal rotation of the shoulder The acromioclavicular joint is unremarkable. The supraspinatus appears thin and hypoechoic along the insertion onto the superior facet of the greater tubercle of the humerus The infraspinatus appears normal along the insertion onto the middle facet of the glenoid tubercle Subacromial-subdeltoid bursa with fluid No subacromial impingement noted with dynamic testing The teres minor appear normal without tendinosis, tear, and tenosynovitis The posterior labrum is unremarkable. No bunching noted with external rotation of the shoulder No evidence of a joint effusion Interpretation: Findings suggestive of supraspinatus partial tear with subacromial subdeltoid bursitis - Ultrasound was performed and interpreted by myself, and the findings above reflect my interpretation - Images obtained and saved on the [facility] Orthopedic ultrasound machine Dominic Oliva PA-C Dominic Oliva PA-C IM US ORDERABLES Final Resul t * XR shoulder complete 2 views min right (10/22/2024 2:55 PM EDT) Anatomical Region Laterality Modality X-Ray 10/22/2024 3:11 PM EDT Impressions 10/22/2024 3:12 PM EDT Negative. Narrative 10/22/2024 3:12 PM EDT Right shoulder HISTORY: Right shoulder pain FINDINGS: 3 views. Joint compartments appear maintained and are normally aligned. There are no acute or old fractures. There are no significant degenerative changes. Procedure Note Emilia Schneider MD - 10/22/2024 Right shoulder HISTORY: Right shoulder pain FINDINGS: 3 views. Joint compartments appear maintained and are normally aligned. There are no acute or old fractures. There are no significant degenerative changes. IMPRESSION: Negative. Dominic Oliva PA-C IMG DIAGNOSTIC IMAGING ORDERA BLES Final Result documented in this encounter Visit Diagnoses Diagnosis Right arm pain- Primary Pain in soft tissues of limb Internal derangement of right shoulder History of arthroscopic surgery of right shoulder Partial tear of right supraspinatus tendon Right shoulder pain Pain in joint, shoulder region Right arm pain Pain in soft tissues of limb documented in this encounter Care Teams Hardwood Floor Finisher Relationship Specialty Start Date End Date Dominic Oliva PA-C [address] [place] [phone] Physician Warp Dresser 10/01/24 documented as of this encounter
--- OUTSIDE RECORDS SUMMARY | 2024-10-22 14:42 | XMS_ITS | Encounter Summary ---
Author Organization [employer] Address [address] [place] [address] Care Team Providers Care Correctional Officer Name Role Phone Dominic Oliva PA-C Unavailable [phone] Reason for Referral * Diagnostic X-Ray (Routine) - Closed Specialty Diagnoses / Procedures Referred By Contac t Referred To Contact Radiology Diagnoses Right arm pain Procedures XR shoulder complete 2 views min right Dominic Oliva PA-C [address] [place] [address] Phone: tel: fax: [facility] - [facility] [address] [facility] [address] [place] [address] Phone: tel: fax: Referral ID Status Reason Start Date Expiration Date Visits Re quested Visits Authorized [id number] Closed 10/22/2024 10/22/2025 1 1 Reason for Visit * Diagnostic X-Ray (Routine) - Closed Specialty Diagnoses / Procedures Referred By Contac t Referred To Contact Radiology Diagnoses Right arm pain Procedures XR shoulder complete 2 views min right Dominic Oliva PA-C [address] [place] [address] Phone: tel: fax: [facility] - [facility] [address] [facility] [address] [place] [address] Phone: tel: fax: Referral ID Status Reason Start Date Expiration Date Visits Re quested Visits Authorized [id number] Closed 10/22/2024 10/22/2025 1 1 Encounter Details Date Type Department Care Team (Late st Contact Info) Description 10/22/2024 2:42 PM EDT - 10/22/2024 11:59 PM EDT Hospital Encounter [facility] - [address] [place] [address] Dominic Oliva PA-C [address] [place] [address] Right arm pain Discharge Disposition: Home or Self Care Social History Tobacco Use Types Packs/Day Years [...] Date Francis rded Speak language other than Guatemalan at home Not on file 06/09/2023 Want [...] on file documented as of this encounter Medications at Time of Discharge aspirin 81 MG EC tablet Take 1 tablet (81 mg total) by mouth daily. bisoprolol (ZEBETA) 5 MG tablet Take 1 tablet (5 mg total) by mouth daily. 10/25/2024 buPROPion (WELLBUTRIN XL) 150 MG 24 hr tablet Take 1 tablet (150 mg total) by mouth every morning. 06/15/2023 citalopram (CeleXA) 40 MG tablet Take 1 tablet (40 mg total) by mouth daily. 03/30/2023 dilTIAZem (DILACOR XR) 120 MG 24 hr capsule Take 1 capsule (120 mg total) by mouth daily. 03/30/2023 EnbreL SureClick 50 mg/mL (1 mL) PnIj Inject 1 Syringe subcutaneously once a week. 05/27/2023 esomeprazole (NexIUM) 40 MG capsule Take 1 capsule (40 mg total) by mouth daily. 06/01/2023 gabapentin (NEURONTIN) 400 MG capsule Take 2 capsules (800 mg total) by mouth 2 (two) times daily. 06/01/2023 hydroCHLOROthia zide (HYDRODIURIL) 12.5 MG tablet Take 1 tablet (12.5 mg total) by mouth daily. 05/24/2023 HYDROcodone-stephanie taminophen (NORCO 7.5-325) 7.5-325 mg per tablet Take 1 tablet by mouth 4 (four) times daily as needed. 06/21/2023 Jardiance 25 mg tablet Take 1 tablet (25 mg total) by mouth every morning. 04/02/2023 leflunomide (ARAVA) 20 MG tablet Take 1 tablet (20 mg total) by mouth daily. 06/02/2023 losartan (COZAAR) 50 MG tablet Take 1 tablet (50 mg total) by mouth daily. 06/01/2023 Repatha Syringe 140 mg/mL syringe Inject 140 mg under the skin every 14 (fourteen) days. 08/20/2024 Trulicity 4.5 mg/0.5 mL syringe Inject subcutaneously. 06/15/2023 Xarelto 20 mg tablet SMARTSI Tablet(s) By Mouth Every Evening 04/25/2023 HYDROcodone-stephanie taminophen (NORCO) 10-325 mg per tablet Take 1 tablet by mouth every 6 (six) hours as needed for pain for up to 10 days. Max Daily Amount: 4 tablets 8 tablet 10/25/2024 5 bisoprolol (ZEBETA) 5 MG tablet Take 340 tablets (1,700 mg total) by mouth daily. 04/10/2023 5 etanercept (EnbreL SureClick) 50 mg/mL (1 mL) pnij Inject 1 mL under the skin every 7 days. 10/24/2024 5 documented as of this encounter Plan of Treatment Upcoming Encounters Date Type Department Care Team (Late st Contact Info) Description 12/17/2024 1:30 PM EDT Office Visit [facility] - [facility] [address] [place] [id number] Dominic Oliva PA-C [address] [place], [place] [id number] documented as of this encounter Procedures Procedure Name Priority Date/Time Associated Diagnosis Comments XR SHOULDER COMPLETE 2 VIEWS MIN RIGHT Routine 10/22/2024 2:55 PM EDT Right arm pain documented in this encounter Results * XR shoulder complete 2 views min [...] this encounter Visit Diagnoses Diagnosis Right arm pain Pain in soft tissues of limb documented in this encounter Care Teams Correctional Officer Relationship Specialty Start Date End Date Dominic Oliva PA-C [address] [place] [address] Physician [employer] Wiring Technician 10/01/24 documented as of this encounter
--- OUTSIDE RECORDS SUMMARY | 2024-10-25 09:35 | XMS_ITS | Encounter Summary ---
Author Organization [employer] Address [address] [place] [address] Care Team Providers Care Distributed Energy Systems Consultant Name Role Phone Dominic Oliva PA-C Unavailable [phone] Abhishek Griggs MD Primary Care Provider + [phone] Reason for Visit * Auth/Cert (Routine) Specialty Diagnoses / Procedures Referred By Howie rondon Referred To Contact Diagnoses Carpal tunnel syndrome Carpal tunnel syndrome Procedures MO NEUROPLASTY &/TRANSPOS MEDIAN NRV CARPAL TUNNE RELEASE, CARPAL TUNNEL Anshul Banks MD [address] [place] [address] Phone: tel: fax: Referral ID Status Reason Start Date Expiration Date Visits Re quested Visits Authorized [id number] 09/19/2024 1 1 Encounter Details Date Type Department Care Team (Latest Contact Info) Description 10/25/2024 9:35 AM EDT - 10/25/2024 3:30 PM EDT Hospital Encounter [facility] Operating Room [address] [place] [id number] Anshul Banks MD [address] [place] [address] Discharge Disposition: Home or Self Care Social [...] Date Francis rded Speak language other than Jamaican at home Not on file 06/09/2023 Want [...] Sign Reading Time Taken Comments Blood Pressure 120/73 10/25/2024 3:04 PM EDT Pulse 80 10/25/2024 3:04 PM EDT Temperature 36.3 C (97.4 F) 10/25/2024 2:33 PM EDT Respiratory Rate 16 10/25/2024 3:04 PM EDT Oxygen Saturation 95% 10/25/2024 3:04 PM EDT Inhaled Oxygen Concentration - - Weight 106.7 kg (235 lb 3.2 oz) 10/25/2024 9:00 AM EDT Height 172.7 cm (5' 8 ) 10/25/2024 9:00 AM EDT Body Mass Index 35.76 10/25/2024 9:00 AM EDT documented in this encounter Discharge Instructions * Appointments* Stanley Dempsey RN - 10/25/2024 2:53 PM EDT Gradually resume your normal diet today, as tolerated. Drink plenty of water. Gradually resume light activities. Avoid any heavy lifting with your left arm/hand until ok by Dr. Banks You may shower, but must use a protective wrap (ex. Glad Press 'N Seal Wrap) to keep site completely dry. Notify Dr. Banks immediately if site gets wet. You may remove the dressing to your left hand in 7 days. Wash your hands well with soap and water before AND after removing the bandage. Continue to keep site dry. Wear your sling for comfort until further advised by Dr. Banks Do not drive until released by Dr. Banks Do not drink alcohol for 24 hours or while taking narcotics Notify provider of fever over 100.4, chills, unusual pus-like drainage from incision, redness/swelling/warmth at incision site, uncontrolled pain, unrelieved nausea/vomiting, or any questions or concerns you may have You must have someone 18+ with you for the first 24 hours following surgery It is important to not remove any francisco, stitches, glue, or drains unless instructed to do so by your doctor. Following surgery, include plenty of whole grains, protein, and green leafy vegetables into your diet to promote healing. Drink plenty of water (if you do not follow a fluid restriction). * Attachments The following attachments cannot be sent through Care Everywhere. * Endoscopic Carpal Tunnel Release Care After (Jamaican) * Monitored Anesthesia Care Care After (Jamaican) * How to Prevent Constipation After Surgery (Jamaican) * Acetaminophen; Hydrocodone Capsules or Tablets (Jamaican) documented in this encounter Medications at Time of Discharge [...] Amount: 4 tablets 8 tablet 10/25/2024 5 documented as of this encounter Progress Notes * Nicole Hoffmann RN - 10/25/2024 3:30 PM EDT Swelling, some improvement with elevation documented in this encounter H&P Notes * Sabi Enamorado PA-C - 10/25/2024 10:12 AM EDT H&P History Of Present Illness Neeru Samano is a 59 y.o. female with pertinent PMH of left carpal tunnel syndrome. Pt has had issues with left hand numbness, burning and paresthesias. She has also had issues with low back pain with radiation down RLE and right shoulder pain with radiation into RUE. Patient has been conservatively managed but continues to have pain which is negatively impacting activities of daily living. Thismorning the patient complains of tingling in her left hand. No f/c/s. No cp, soa. Patient was evaluated by Dr. Banks and presents today for an elective left carpal tunnel release. Past Medical History She has a past medical history of Arthritis, Atrial fibrillation ([facility]) (2014), Carpal tunnel syndrome (07-16), Diabetes (), Fibromyalgia, Fibromyositis (2017), Hypertension, Low back pain (1993), Myocardial infarction ([facility]) (2014), Rheumatoid arthritis ([facility]) (2015), and Sleep apnea. Surgical History She has a past surgical history that includes Spine surgery (1993); Spine surgery (1997); Foot Fusion; Shoulder surgery; Neck surgery; Cholecystectomy; Foot surgery (2018); Back surgery (1997); and Spinal fusion (1997). Social History She reports that she has never smoked. She has never used smokeless tobacco. She reports that she does not drink alcohol and does not use drugs. Family History Her family history includes High blood pressure in an other family member. Allergies Penicillins Medications Current Outpatient Medications Medication Instructions aspirin 81 mg, Daily bisoprolol (ZEBETA) 1,700 mg, Daily buPROPion XL (WELLBUTRIN XL) 150 mg, Every morning citalopram (CELEXA) 40 mg, Daily dilTIAZem (CARDIZEM CD) 120 mg, Daily EnbreL SureClick 50 mg/mL (1 mL) PnIj 1 Syringe, Weekly esomeprazole (NEXIUM) 40 mg, Daily etanercept (EnbreL SureClick) 50 mg/mL (1 mL) pnij 1 mL, Every 7 days gabapentin (NEURONTIN) 800 mg, 2 times daily hydroCHLOROthiazide (HYDRODIURIL) 12.5 mg, Daily HYDROcodone-acetaminophen (NORCO 7.5-325) 7.5-325 mg per tablet 1 tablet, 4 times daily PRN Jardiance 25 mg, Every morning leflunomide (ARAVA) 20 mg, Daily losartan (COZAAR) 50 mg, Daily Repatha Syringe 140 mg, Every 14 days Trulicity 4.5 mg/0.5 mL syringe Inject subcutaneously. Xarelto 20 mg tablet SMARTSI Tablet(s) By Mouth Every Evening Review of Systems 14 point ROS completed and non-contributory except as listed above Physical Exam Blood pressure (!) 146/91, pulse 80, temperature 97.4 ??F (36.3 ??C), temperature source Temporal Artery, resp. rate 18, height 1.727 m (5' 8 ), weight 106.7 kg (235 lb 3.2 oz), SpO2 97%. GEN: Alert, awake, NAD, obese HEENT: NCAT, no icterus, no thrush, nares patent, CV: S1S2, no murmur. No LE edema Resp: CTAB, NL Abd: Soft, NT, ND +BS Skin: no rashes on inspection and palpation. Ext: No LE edema. No joint edema, erythema. Neuro: A&O x 3, CN grossly intact Diagnostic Results No visits with results within 1 Day(s) from this visit. Latest known visit with results is: No results found for any previous visit. Assessment & Plan Left carpal tunnel syndrome -to OR for scheduled procedure CHEY, CPAP HTN Afib -Xarelto, Last dose 10/20/24 RA Obesity DM II -Trulicity, last dose 10/24/24 documented in this encounter OR Notes * Op Note - Anshul Banks MD - 10/25/2024 2:17 PM EDT Date of procedure: 10/25/24 Pre-operative Diagnosis: Left carpal tunnel syndrome Post-operative Diagnosis: Left carpal tunnel syndrome Indication for Procedure: Left carpal tunnel syndrome Procedure: Left carpal tunnel release Surgeon: Anshul Banks M.D. Type of anesthesia: MAC w/ local Description procedure in detail: Once consent was noted to be on chart the patient was taken to the operating room. They were sedated and prepped and draped neural sterile fashion. A 1 cm incision was marked from the midline of the wrist towards the interspace of the third and fourth digits. Time out was called a #15 blade was used to make incision. Hemostasis was maintained with bipolar cautery. Dissection was performed down tothe transversalis ligament. It was cut sharply releasing the median nerve. We extended the cut bothproximally and distally until the nerve was free. A 4 Valders past easily proximally and distally.Meticulous hemostasis obtained. 3-0 Nylon closed the skin with horizontal mattress sutures. Bacitracin and hand wrap was applied. Estimated blood Loss: Minimal Specimen sent: None. Complications: None. documented in this encounter Plan of Treatment Upcoming Encounters Date Type Department Care Team (Late st Contact Info) Description 12/17/2024 1:30 PM EDT Office Visit [facility] [address] [place] [address] Dominic Oliva PA-C [address] [place] [phone] documented as of this encounter Procedures Procedure Name Priority Date/Time Associated Diagnosis Comments NOVA GLUCOSE POC Routine 10/25/2024 2:47 PM EDT MO NEUROPLASTY &/TRANSPOS MEDIAN NRV CARPAL TUNNE 10/25/2024 1:47 PM EDT Carpal tunnel syndrome Case Notes IN 1000, 30 MIN (A) CHI NEURO CASE NOVA GLUCOSE POC Routine 10/25/2024 11:0 3 AM EDT CBC W/ AUTO DIFF Routine 10/25/2024 11:0 0 AM EDT BASIC METABOLIC PANEL Routine 10/25/2024 11:00 AM EDT documented in this encounter Results * (ABNORMAL) Glucose, Nova Meter (10/25/2024 2:47 PM EDT) POC-GLUCOSE 126(H) 70 - 110 mg/dL 10/25/2024 2:48 PM EDT [facility] Comment: In the event of poor peripheral blood flow, venous or arterial blood should be used due to the potential of erroneous results. Protocols Followed [employer] Supervisor [phone] 10/25/2024 2:48 PM EDT [facility] Blood WHOLE BLOOD / Unknown 10/25/2024 2:47 PM EDT 10/25/2024 2:47 PM EDT [facility] - 10/25/2024 2:48 PM EDT [employer] And Gr[employer] Supervisor ID is - [id number] Anshul Banks MD POINT OF CARE TEST ORDERABLES Fi nal Result [facility] [address] [phone] * (ABNORMAL) Glucose, Nova Meter (10/25/2024 11:03 AM EDT) Pathologist [facility] POC-GLUCOSE 133(H) 70 - 110 mg/dL 10/25/2024 11:04 AM EDT [facility] Comment:In the event of poor peripheral blood flow, venous or arterial blood should be used due to the potential of erroneous results. Tur[employer] And Grounds Supervisor [phone] 10/25/2024 11:04 AM EDT [facility] Blood WHOLE BLOOD / Unknown 10/25/2024 11:03 AM EDT 10/25/2024 11:04 AM EDT [facility] - 10/25/2024 11:04 AM EDT [employer] Supervisor ID is - [id number] us Anshul Banks MD POINT OF CARE TEST ORDERABLES Fi nal Result [facility] [address] [phone] * (ABNORMAL) Basic Metabolic Panel (10/25/2024 11:00 AM EDT) Sodium 140 136 - 145 meq/L 10/25/2024 11:32 AM EDT [facility] Potassium 4.2 3.4 - 5.1 meq/L 10/25/2024 11:32 AM EDT [facility] CO2 24 22 - 29 meq/L 10/25/2024 11:32 AM EDT [facility] Chloride 106 98 - 112 meq/L 10/25/2024 11:32 AM EDT [facility] Glucose 124(H) 82 - 115 mg/dL 10/25/2024 11:32 AM EDT [facility] BUN 19.1 9.8 - 20.1 mg/dL 10/25/2024 11:32 AM EDT [facility] Creatinine 0.85 0.57 - 1.11 mg/dL 10/25/2024 11:32 AM EDT [facility] BUN/Creatinine 22(H) 8 - 20 10/25/2024 11:32 AM EDT [facility] Calcium 10.4(H) 8.4 - 10.2 mg/dL 10/25/2024 11:32 AM EDT [facility] Anion Gap 14(H) 4 - 12 10/25/2024 11:32 AM EDT [facility] eGFR (mL/min/1.73m2) 79 >=60 mL/min/1.7 3m2 10/25/2024 11:32 AM EDT [facility] Osmolality Calc 283.1 mOsm/kg 11:32 AM EDT [facility] Blood Venipuncture / Unknown 10/25/2024 11:00 AM EDT 10/25/2024 11:13 AM EDT us Rogelio Weldon MD LAB BLOOD ORDERABLES Final Res ult [facility] [address] [id number] [phone] * (ABNORMAL) CBC with Automated Diff (10/25/2024 11:00 AM EDT) WBC 7.2 4.0 - 10.0 K/ L 10/25/2024 11:17 AM EDT [facility] RBC 5.17 3.93 - 5.22 M/ L 10/25/2024 11:17 AM EDT [facility] Hemoglobin 14.3 11.2 - 15.7 GM/DL 10/25/2024 11:17 AM EDT [facility] Hematocrit 44.5 34.1 - 44.9 % 10/25/2024 11:17 AM EDT [facility] MCV 86 79 - 95 fL 10/25/2024 11:17 AM EDT [facility] MCH 27.7 25.6 - 32.2 pg 10/25/2024 11:17 AM EDT [facility] MCHC 32.1(L) 32.2 - 35.5 GM/DL 10/25/2024 11:17 AM EDT [facility] RDW 13.6 11.7 - 14.4 % 10/25/2024 11:17 AM EDT [facility] Platelets 266 140 - 375 K/CU MM 10/25/2024 11:17 AM EDT [facility] MPV 9.1(L) 9.4 - 12.3 fL 10/25/2024 11:17 AM EDT [facility] % Neutros 45 34 - 71 % 10/25/2024 11:17 AM EDT [facility] % Lymphs 31 19 - 52 % 10/25/2024 11:17 AM EDT [facility] % Monos 10 5 - 13 % 10/25/2024 11:17 AM EDT [facility] % Eos 12(H) 1 - 6 % 10/25/2024 11:17 AM EDT [facility] % Baso 1 0 - 1 % 10/25/2024 11:17 AM EDT [facility] NRBC Absolute <0.01 0 - 0.012 K/ul 10/25/2024 11:17 AM EDT [facility] # Neutros 3.20 1.56 - 6.13 K/ L 10/25/2024 11:17 AM EDT [facility] # Lymphs 2.26 1.18 - 3.74 K/ L 10/25/2024 11:17 AM EDT [facility] # Monos 0.75 0.24 - 0.86 K/ L 10/25/2024 11:17 AM EDT [facility] # Eos 0.89(H) 0.04 - 0.36 K/ L 10/25/2024 11:17 AM EDT [facility] # Baso 0.08 0.01 - 0.08 K/ L 10/25/2024 11:17 AM EDT [facility] Immature Granulocytes-Re lative 0.10 0.01 - 0.43 % 10/25/2024 11:17 AM EDT [facility] # IG <0.03 0.00 - 0.03 K/uL 10/25/2024 11:17 AM EDT [facility] Blood Venipuncture / Unknown 10/25/2024 11:00 AM EDT 10/25/2024 11:13 AM EDT Narrative [facility] - 10/25/2024 11:17 AM EDT When CBC w/ Auto Diff is ordered the lab will add a Manual Differential as a quality check at no additional charge if: Lymphocytes greater than seventy five percent with normal or increased WBC Monocytes greater than Fifteen percent Basophil greater than four percent Bands >10% or several immature myeloids are seen on scan Blast? Flag noted Atypical Lymph flag noted us Rogelio Weldon MD LAB BLOOD ORDERABLES Final Res ult [facility] [address] [phone] documented in this encounter Visit Diagnoses Not on filedocumented in this encounter Administered Medications Inactive Administered Medications - up to 3 most recent administrations Medication Order MAR Action Action Date Dose Rate Site lactated Ringer's infusion 100 mL/hr Continuous, intravenous, Starting on Mon10/25/24 at 1100, Pre-op Restarted 10/25/2024 1:47 PM EDT New Bag 10/25/2024 10:59 AM EDT 100 mL/hr 100 mL/hr mupirocin (BACTROBAN) 2 % ointment 1 Application each nostril, Once, On Mon10/25/24 at 1100, For 1 dose, Specific area to apply: bilateral nares , Pre-op Given 10/25/2024 10:59 AM EDT 1 Applicati on documented in this encounter Active and Recently Administered Medications Times are shown in EDT. Scheduled Medication Order 10/23/2024 10/24/2024 10/25/2024 clindamycin (CLEOCIN) IVPB 900 mg in dextrose 5 % 50 mL (premix) (COMPLETED) 900 mg Once, intravenous, Administer over 60 Minutes, On Mon10/25/24 at 1100, For 1 dose, Pre-op, Please choose an indication: Surgical Prophylaxis 1403 (Given - Provid er: Pradeep Centeno) mupirocin (BACTROBAN) 2 % ointment 1 Application (COMPLETED) each nostril, Once, On Mon10/25/24 at 1100, For 1 dose, Specific area to apply: bilateral nares , Pre-op 1059 (Given - Provid er: Barb Huerta RN) Continuous Medication Order 10/23/2024 10/24/2024 10/25/2024 lactated Ringer's infusion 100 mL/hr Continuous, intravenous, Starting on Mon10/25/24 at 1100, Pre-op 1059 (New Bag - Prov ider: Barb Huerta RN)1346 (Paused - Provider: Pradeep Centeno - Comment: Switch to gravity)1347 (Restarted - Provider: Pradeep Centeno)1423 (Anesthesia Volume Adjustment - Provider: Pradeep Centeno) PRN Medication Order 10/23/2024 10/24/2024 10/25/2024 lidocaine (XYLOCAINE) injection 1% (CANCELED) As needed, Starting on Mon10/25/24 at 1413, Intra-op 1413 (Given - Provid er: Anshul Banks MD) vancomycin (VANCOCIN) injection (CANCELED) As needed, Starting on Mon10/25/24 at 1411, Intra-op 1411 (Given - Provid er: Anshul Banks MD - Comment: Administered as irrigation (Mixed with 1 Liter of NSS)) documented in this encounter Care Teams Distributed Energy Systems Consultant Relationship Specialty Start Date End Date Abhishek Griggs MD [address] [place] [address] PCP - General Adolescent Medicine 10/25/24 Dominic Oliva PA-C [address] [place] [address] Physician Electronic Engineering Technician 10/01/24 documented as of this encounter
--- OUTSIDE RECORDS SUMMARY | 2024-10-25 13:45 | XMS_ITS | Encounter Summary ---
Author Organization [employer] Address [address] [place] [address] Care Team Providers Care Patient Care Director Name Role Phone Dominic Oliva PA-C Unavailable [phone] Abhishek Griggs MD Primary Care Provider + [phone] Reason for Visit * Auth/Cert (Routine) Specialty Diagnoses / Procedures Referred By Howie rondon Referred To Contact Diagnoses Carpal tunnel syndrome Carpal tunnel syndrome Procedures [place] NEUROPLASTY &/TRANSPOS MEDIAN NRV CARPAL TUNNE RELEASE, CARPAL TUNNEL Anshul Banks MD [address] [place] [address] Phone: tel: fax: Referral ID Status Reason Start Date Expiration Date Visits Re quested Visits Authorized [id number] 09/19/2024 1 1 Encounter Details Date Type Department Care Team (Late st Contact Info) Description 10/25/2024 1:45 PM EDT - 10/25/2024 3:00 PM EDT Surgery [facility] Operating Room [address] [place] [id number] Anshul Banks MD [address] [place] [address] (LT RELEASE, CARPAL TUNNEL) Social History Tobacco Use Types Packs/Day Years [...] Date Francis rded Speak language other than Nigerien at home Not on file 06/09/2023 Want [...] Sign Reading Time Taken Comments Blood Pressure 112/70 10/25/2024 2:48 PM EDT Pulse 80 10/25/2024 2:48 PM EDT Temperature 36.3 C (97.4 F) 10/25/2024 2:33 PM EDT Respiratory Rate 16 10/25/2024 2:48 PM EDT Oxygen Saturation 95% 10/25/2024 2:48 PM EDT Inhaled Oxygen Concentration - - [...] * Endoscopic Carpal Tunnel Release Care After (Nigerien) * Monitored Anesthesia Care Care After (Nigerien) * How to Prevent Constipation After Surgery (Nigerien) * Acetaminophen; Hydrocodone Capsules or Tablets (Nigerien) documented in this encounter Medications at Time [...] medical history of Arthritis, Atrial fibrillation ([facility]) (2014), Carpal tunnel syndrome (07-16), Diabetes (), Fibromyalgia, Fibromyositis (2017), Hypertension, Low back pain (1993), Myocardial infarction ([facility]) (2014), Rheumatoid arthritis ([facility]) (2015), and Sleep apnea. Surgical History She [...] until the nerve was free. A 4 [place] past easily proximally and distally.Meticulous hemostasis obtained. 3-0 Nylon closed the skin with horizontal mattress sutures. Bacitracin and hand wrap was applied. Estimated blood Loss: Minimal Specimen sent: None. Complications: None. documented in this encounter Plan of Treatment Upcoming Encounters Date Type Department Care Team (Late st Contact Info) Description 12/17/2024 1:30 PM EDT Office Visit [facility] Orthopedics - [address] [place] [address] Dominic Oliva PA-C [address] [place] [address] documented as of this encounter Procedures [...] - 110 mg/dL 10/25/2024 2:48 PM EDT [facility] Comment: In the event of poor peripheral blood flow, venous or arterial blood should be used due to the potential of erroneous results. Protocols Followed Mill Labor Supervisor [phone] 10/25/2024 2:48 PM EDT [facility] Blood WHOLE BLOOD / Unknown 10/25/2024 2:47 PM EDT 10/25/2024 2:47 PM EDT [facility] - 10/25/2024 2:48 PM EDT Mill [employer] Supervisor ID is - [id number] Anshul Banks MD POINT OF CARE TEST ORDERABLES Fi nal Result [facility] [address] [phone] * (ABNORMAL) Glucose, Nova Meter (10/25/2024 11:03 AM EDT) Pathologist [facility] POC-GLUCOSE 133(H) 70 - 110 mg/dL 10/25/2024 11:04 AM EDT [facility] Comment:In the event of poor peripheral blood flow, venous or arterial blood should be used due to the potential of erroneous results. [employer] Supervisor [phone] 10/25/2024 11:04 AM EDT [facility] Blood WHOLE BLOOD / Unknown 10/25/2024 11:03 AM EDT 10/25/2024 11:04 AM EDT [facility] - 10/25/2024 11:04 AM EDT [employer] Supervisor ID is - [id number] us Anshul Banks MD POINT OF CARE TEST ORDERABLES Fi nal Result [facility] [address] [phone] * (ABNORMAL) Basic Metabolic Panel (10/25/2024 11:00 AM EDT) Sodium 140 136 - 145 meq/L 10/25/2024 11:32 AM EDT [facility] Potassium 4.2 3.4 - 5.1 meq/L 10/25/2024 11:32 AM EDT [facility] CO2 24 22 - 29 meq/L 10/25/2024 11:32 AM EDT [facility] Chloride 106 98 - 112 meq/L 10/25/2024 11:32 AM EDT [facility] Glucose 124(H) 82 - 115 mg/dL 10/25/2024 11:32 AM EDT [facility] BUN 19.1 9.8 - 20.1 mg/dL 10/25/2024 11:32 AM EDT [facility] Creatinine 0.85 0.57 - 1.11 mg/dL 10/25/2024 11:32 AM EDT [facility] BUN/Creatinine 22(H) 8 - 20 10/25/2024 11:32 AM EDT [facility] Calcium 10.4(H) 8.4 - 10.2 mg/dL 10/25/2024 11:32 AM EDT [facility] Anion Gap 14(H) 4 - 12 10/25/2024 11:32 AM EDT [facility] eGFR (mL/min/1.73m2) 79 >=60 mL/min/1.7 3m2 10/25/2024 11:32 AM EDT [facility] Osmolality Calc 283.1 mOsm/kg 11:32 AM EDT [facility] Blood Venipuncture / Unknown 10/25/2024 11:00 AM EDT 10/25/2024 11:13 AM EDT us Rogelio Weldon MD LAB BLOOD ORDERABLES Final Res ult [facility] [address] [place] [id number] [phone] * (ABNORMAL) CBC with Automated Diff (10/25/2024 11:00 AM EDT) WBC 7.2 4.0 - 10.0 K/ L 10/25/2024 11:17 AM EDT [facility] RBC 5.17 3.93 - 5.22 M/ L 10/25/2024 11:17 AM EDT [facility] Hemoglobin 14.3 11.2 - 15.7 GM/DL 10/25/2024 11:17 AM EDT [facility] Hematocrit 44.5 34.1 - 44.9 % 10/25/2024 11:17 AM EDT [facility] MCV 86 79 - 95 fL 10/25/2024 11:17 AM EDT [facility] MCH 27.7 25.6 - 32.2 pg 10/25/2024 11:17 AM EDT [facility] MCHC 32.1(L) 32.2 - 35.5 GM/DL 10/25/2024 11:17 AM EDT [facility] RDW 13.6 11.7 - 14.4 % 10/25/2024 11:17 AM EDT [facility] Platelets 266 140 - 375 K/CU MM 10/25/2024 11:17 AM EDT [facility] MPV 9.1(L) 9.4 - 12.3 fL 10/25/2024 11:17 AM EDT [facility] % Neutros 45 34 - 71 % 10/25/2024 11:17 AM EDT [facility] % Lymphs 31 19 - 52 % 10/25/2024 11:17 AM EDT [facility] % Monos 10 5 - 13 % 10/25/2024 11:17 AM EDT [facility] % Eos 12(H) 1 - 6 % 10/25/2024 11:17 AM EDT [facility] % Baso 1 0 - 1 % 10/25/2024 11:17 AM EDT [facility] NRBC Absolute <0.01 0 - 0.012 K/ul 10/25/2024 11:17 AM EDT [facility] # Neutros 3.20 1.56 - 6.13 K/ L 10/25/2024 11:17 AM EDT [facility] # Lymphs 2.26 1.18 - 3.74 K/ L 10/25/2024 11:17 AM EDT [facility] # Monos 0.75 0.24 - 0.86 K/ L 10/25/2024 11:17 AM EDT [facility] # Eos 0.89(H) 0.04 - 0.36 K/ L 10/25/2024 11:17 AM EDT [facility] # Baso 0.08 0.01 - 0.08 K/ L 10/25/2024 11:17 AM EDT [facility] Immature Granulocytes-Re lative 0.10 0.01 - 0.43 % 10/25/2024 11:17 AM EDT [facility] # IG <0.03 0.00 - 0.03 K/uL 10/25/2024 11:17 AM EDT [facility] Blood Venipuncture / Unknown 10/25/2024 11:00 AM EDT 10/25/2024 11:13 AM EDT Narrative [facility] - 10/25/2024 11:17 AM EDT When [...] MD LAB BLOOD ORDERABLES Final Res ult [facility] [address] [phone] documented in this encounter Visit Diagnoses Diagnosis Carpal tunnel syndrome documented in this encounter Administered Medications Inactive Administered Medications - up to 3 most recent administrations Medication Order MAR Action Action Date Dose Rate Site lactated Ringer's infusion 100 mL/hr Continuous, intravenous, Starting on Mon10/25/24 at 1100, Pre-op Restarted 10/25/2024 1:47 PM EDT New Bag 10/25/2024 10:59 AM EDT 100 mL/hr 100 mL/hr lidocaine (XYLOCAINE) injection 1% As needed, Starting on Mon10/25/24 at 1413, Intra-op Given 10/25/2024 2:13 PM EDT 8 mLs mupirocin (BACTROBAN) 2 % ointment 1 Application each nostril, Once, On Mon10/25/24 at 1100, For 1 dose, Specific area to apply: bilateral nares , Pre-op Given 10/25/2024 10:59 AM EDT 1 Application vancomycin (VANCOCIN) injection As needed, Starting on Mon10/25/24 at 1411, Intra-op Given 10/25/2024 2:11 PM EDT 1,000 mg Left Wrist documented in this encounter Active and Recently [...] NSS)) documented in this encounter Care Teams Patient Care Director Relationship Specialty Start Date End Date Abhishek Griggs MD [address] [place] [address] PCP - General Adolescent Medicine 10/25/24 Dominic Oliva PA-C [address] [place] [address] Physician Massotherapist 10/01/24 documented as of this encounter
--- OUTSIDE RECORDS SUMMARY | 2024-10-25 13:47 | XMS_ITS | Encounter Summary ---
Author Organization [employer] Address [address] [place] [address] Care Team Providers Care Director Of Surgery Name Role Phone Dominic Oliva PA-C Unavailable [phone] Abhishek Griggs MD Primary Care Provider + [phone] Reason for Visit * Auth/Cert (Routine) Specialty Diagnoses / Procedures Referred By Howie t Referred To Contact Diagnoses Carpal tunnel syndrome Carpal tunnel syndrome Procedures [place] NEUROPLASTY &/TRANSPOS MEDIAN NRV CARPAL TUNNE RELEASE, CARPAL TUNNEL Anshul Banks MD [address] [place] [address] Phone: tel: fax: Referral ID Status Reason Start Date Expiration Date Visits Re quested Visits Authorized [id number] 09/19/2024 1 1 Encounter Details Date Type Department Care Team (Late st Contact Info) Description 10/25/2024 1:47 PM EDT Anesthesia Event [facility] Operating Room [address] [place] [phone] Rogelio Weldon MD [address] [place] [address] Pradeep Centeno Anesthesia Record Procedure Summary Procedure Name Responsible Anesthesiologist Anesthesia Start Time Anesthesia Stop Time (LT RELEASE, CARPAL TUNNEL) (Left: Wrist) Rogelio Weldon MD 10/25/24 1347 10/25/24 1424 Events Date Time Event Comment 10/25/2024 1347 An Start Patient identif ied and chart reviewed. 1347 Pre-Induction Eval FDA anest hesia machine pre-use checkout completed. Patient status reassessed prior to start of anesthesia care. 1347 An Start Data Anesthesia mac vickie and monitors checked. 1355 An Induction 1358 Anesthesia Ready 1404 Quick Note Surgical timeou t 1420 an stop data 1423 Handoff to Receiving I compl eted my handoff to the receiving clinician during which we: 1. Identified the patient. 2. Identified the responsible provider. 3. Reviewed the pertinent medical history. 4. Discussed the surgical course. 5. Reviewed intra-op anesthesia management and issues during anesthesia. 6. Set expectations for post-procedure period. 7. Allowed opportunity for questions and acknowledgement of understanding. 1424 An Stop Meds Name Total lidocaine (XYLOCAINE) injection 1% 100 m g propofol (DIPRIVAN) injection 10 mg/mL b olus 100 mg propofol (DIPRIVAN) infusion 10 mg/mL 24 2.74 mg dexmedetomidine (PRECEDEX) injection 100 mcg/mL 10 mcg clindamycin (CLEOCIN) IVPB 900 mg in dex trose 5 % 50 mL (premix) 900 mg fentaNYL (SUBLIMAZE) injection 50 mcg lactated Ringer's infusion 500 mL * Agents Name Auxiliary O2 O2 N2O Air * Blood No blood administrations on file. Lines, Drains, and Airways Type Details Placement Removal Wound 10/25/24; 1411; Inci lester; Arm lower; Left; Surgical Site - Left Wrist - Closed with suture, dressed with Xeroform, 4x4, ellen, Juan and Sling 10/25/24 1411 by Kecia Salvador RN Peripheral IV Placement Date: 11/13; Placement Time: 105; Size: 20 G; Orientation: Posterior, Right; Location: Hand; Site Prep: Chlorhexidine ; Local Anesthetic: None; Insertion attempts: 1; Securement Method: Taped; Removal Date: 10/25/24; Removal Time: 15310/25/24 1059 by Barb Huerta RN 10/25/24 1530 by Stanley Dempsey RN documented in this encounter Social History Tobacco Use Types Packs/Day Years [...] Date Francis rded Speak language other than Zambian at home Not on file 06/09/2023 Want [...] on file documented as of this encounter OR Notes * Anesthesia Postprocedure Evaluation - Rogelio Weldon MD - 10/25/2024 2:23 PM EDT Patient: Neeru Samano Procedure Summary Date: 10/25/24 Room / Location: [facility] OR [address] [place] [address] OPERATING ROOM Anesthesia Start: 1347 Anesthesia Stop: Procedure: (LT RELEASE, CARPAL TUNNEL) (Left: Wrist) Diagnosis: Carpal tunnel syndrome (Carpal tunnel syndrome) Surgeons: Anshul Banks MD Responsible Provider: Rogelio Weldon MD Anesthesia Type: MAC ASA Status: 2 Anesthesia Type: MAC Vitals Value Taken Time BP 94/61 10/25/24 1423 Temp 10/25/24 1423 Pulse 86 10/25/24 1423 Resp 18 10/25/24 1423 SpO2 96% 10/25/24 1423 Ht 1.727 m (5' 8 ) Wt 106.7 kg (235 lb 3.2 oz) BMI 35.76 kg/m?? Anesthesia Post Evaluation Patient location during evaluation: bedside Patient participation: complete - patient participated Level of consciousness: awake and alert Pain score: 0 Pain management: adequate Multimodal analgesia pain management approach Airway patency: patent Two or more strategies used to mitigate risk of obstructive sleep apnea Cardiovascular status: stable and acceptable Respiratory status: nasal cannula Hydration status: acceptable Color: [place] Activity: Moves 4 extremities Inotropes/Vasopressors: N/A No notable events documented. Pradeep Centeno 10/25/2024 2:23 PM EDT * Anesthesia Preprocedure Evaluation - Rogelio Weldon MD - 10/25/2024 10:37 AM EDT Anesthesia Pre Evaluation Ms. Neeru Samano is a 59 y.o. female being evaluated for the following: Date/Time: 10/25/24 1345 Procedure: (LT RELEASE, CARPAL TUNNEL) (Left: Wrist) Location: [facility] OR [address] [place] [address] OPERATING ROOM Surgeons: Anshul Banks MD Relevant Problems ANESTHESIA (within normal limits) (-) History of anesthesia complications CARDIOVASCULAR (+) Atrial fibrillation (HCC) (+) Hypertension (+) Myocardial infarction (HCC) (-) Angina pectoris (HCC) ENDOCRINE (+) Diabetes (HCC) Respiratory (+) Sleep apnea Other (+) Fibromyalgia (+) Rheumatoid arthritis (HCC) Current Outpatient Medications Medication Instructions aspirin 81 [...] tablet SMARTSI Tablet(s) By Mouth Every Evening Allergies Allergen Reactions Penicillins Rash Other reaction(s): Hives Past Surgical History: Procedure Laterality Date BACK SURGERY 1997 2back surgeries CHOLECYSTECTOMY FOOT FUSION FOOT SURGERY 2019 Ankle fusion NECK SURGERY SHOULDER SURGERY SPINAL FUSION 1998 SPINE SURGERY 1994 Lumbar fusion SPINE SURGERY 1998 Lumbar bone cage Social History Tobacco Use Smoking status: Never Smokeless tobacco: Never Substance Use Topics Alcohol use: Never Clinical information reviewed: NPO Status No data recorded Physical Exam Airway Mallampati: II TM distance: >3 FB Neck ROM: full Cardiovascular - normal exam Rhythm: regular Rate: normal Dental - normal exam Pulmonary - normal exam Abdominal Anesthesia Plan ASA 2 Planned anesthetic: general (Denies active GERD LMA candidate) Anesthesia Plan Factors- The patient is not a current smoker. Induction: intravenous Postoperative Plan- Postoperative administration of opioids is intended. Trial extubation is planned. Informed Consent- Anesthetic plan and risks discussed with patient and spouse. Plan discussed with WOOD TANK BUILDER. documented in this encounter Plan of Treatment Upcoming Encounters Date Type Department Care Team (Late st Contact Info) Description 12/17/2024 1:30 PM EDT Office Visit [facility] Orthopedics - [address] [place] [address] Dominic Oliva PA-C [address] [place] [address] documented as of this encounter Visit Diagnoses Not on filedocumented in this encounter Administered Medications Inactive Administered Medications - up to 3 most recent administrations Medication Order MAR Action Action Date Dose Rate Site clindamycin (CLEOCIN) IVPB 900 mg in dextrose 5 % 50 mL (premix) 900 mg Once, intravenous, Administer over 60 Minutes, On Mon10/25/24 at 1100, For 1 dose, Pre-op, Please choose an indication: Surgical Prophylaxis Given 10/25/2024 2:03 PM EDT 900 mg dexmedeTOMIDine (PRECEDEX) injection As needed, intravenous, Starting on Mon10/25/24 at 1355, Anesthesia Intra-op Given 10/25/2024 2:13 PM EDT 5 mcg Given 10/25/2024 1:55 PM EDT 5 mcg fentaNYL PF (SUBLIMAZE) injection As needed, intravenous, Starting on Mon10/25/24 at 1355, Anesthesia Intra-op Given 10/25/2024 1:55 PM EDT 50 mcg lactated Ringer's infusion 100 mL/hr Continuous, intravenous, Starting on Mon10/25/24 at 1100, Pre-op Restarted 10/25/2024 1:47 PM EDT New Bag 10/25/2024 10:59 AM EDT 100 mL/hr 100 mL/hr lidocaine (XYLOCAINE) injection 1% As needed, intravenous, Starting on Mon10/25/24 at 1355, Anesthesia Intra-op Given 10/25/2024 1:55 PM EDT 100 mg propofol (DIPRIVAN) injection 10 mg/mL bolus As needed, intravenous, Starting on Mon10/25/24 at 1355, Anesthesia Intra-op Given 10/25/2024 1:55 PM EDT 100 mg propofoL (DIPRIVAN) injection Continuous PRN, intravenous, Starting on Mon10/25/24 at 1355, Anesthesia Intra-op Rate/Dose Change 10/25/2024 2:13 PM EDT 100 mcg/kg/min 64.02 mL/hr Rate/Dose Change 10/25/2024 2:08 PM EDT 125 mcg/kg/min 80. 025 mL/hr Rate/Dose Change 10/25/2024 2:01 PM EDT 100 mcg/kg/min 64. 02 mL/hr documented in this encounter Care Teams Director Of Surgery Relationship Specialty Start Date End Date Abhishek Griggs MD [address] [place] [address] PCP - General Adolescent Medicine 10/25/24 Dominic Oliva PA-C [address] [place] [address] Physician Mechanical Estimator 10/01/24 documented as of this encounter
--- OUTSIDE RECORDS SUMMARY | 2024-11-13 09:21 | XMS_ITS | Encounter Summary ---
Author Organization [employer] Address [address] [place] [address] Care Team Providers Care Data Center Consultant Name Role Phone Unavailable Primary Care Provider Unavailabl e Encounter Details Date Type Department Care Team (Latest Contact Info) Description 09/19/2024 Travel Social History Tobacco Use Types Packs/Day Years [...] Date Francis rded Speak language other than Kosovan at home Not on file 06/09/2023 Want [...] on file documented as of this encounter Plan of Treatment Upcoming Encounters Date Type Department Care Team (Late st Contact Info) Description 12/17/2024 1:30 PM EDT Office Visit [facility] Orthopedics - [address] [place] [phone] Dominic Oliva PA-C [address] [place] [phone] documented as of this encounter Visit Diagnoses Not on filedocumented in this encounter
--- OUTSIDE RECORDS SUMMARY | 2024-11-13 09:21 | XMS_ITS | Data Portability ---
Author Organization [facility] Address [address] [place] [address] Assessment Encounter Date Assessment Date Assessment LastModified by Organization Details LastModified Time 11/08/2024 11/08/2024 Ms. Samano presents today status post LT RELEASE, CARPAL TUNNEL 10/25. Sutures were removed with no issues or concerns. Incision well healing well. All questions answered. [email or web address] Not available 11/08/2024 09:37:25 Plan of Treatment Reminders Order Date Submit Date Provider Last Modified By Organization Details Last Modified Time Details Appointments None record ed. Lab None record ed. Referral None record ed. Procedures None record ed. Surgeries None record ed. Imaging None record ed. Medication Orders None record ed. Patient TargetsNo targets recorded. Patient InstructionsNo instructions recorded. Reason for Referral None Reported. Medical Equipment None Reported. Allergies Allergen ID Allergen Name Allergen Category Reaction Reaction Severity Criticality Documentation Date Start Date Code Code System Note Provider Name and Address Organization Details Recorded Time 168699 Product containin g penicilli n (product) medicatio n Not available Not available Not available 04/15/20162012 04110 8001 SNOMED Comme nt: Creat ed By: Harpreet salesCre atealeta Date: 03/05 9:09: 24 AM; Not Available [facility] 10:31:29 Medications Name Sig Start Date Stop Date Status Note LastModified by Organization Details LastModified Time carisoprodol 350 mg tablet Two times a day active Duratio n: 10 days;In structi ons: For spasms; Frequen cy: bid;Alt Frequen cy: prn;Med ication Descrip tion: carisop rodol; Dosage: 1; Route:o ral; refills :0; Quantit y:30 tablet Not Available Not Available Not Available carvedilol 25 mg tablet Two times a day active Frequen cy: bid;Med ication Descrip tion: carvedi lol; Dosage: 1; Route:o ral; refills :0 Not Available Not Available Not Available gabapentin 600 mg tablet Every eight hours active Frequen cy: q8h;Med ication Descrip tion: gabapen tin; Dosage: 1; Route:o ral; refills :3; Quantit y:90 tablet Not Available Not Available Not Available nabumetone 750 mg tablet Two times a day active Duratio n: 10 days;Fr equency : bid;Med ication Descrip tion: nabumet one; Dosage: 1; Route:o ral; refills :0 Not Available Not Available Not Available Lortab 7.5 mg-500 mg tablet Every six hours active Frequen cy: q6h;Med ication Descrip tion: acetami nophen- hydroco done; Dosage: 1; Route:o ral; refills :0 Not Available Not Available Not Available Celexa 20 mg tablet Daily active Frequen cy: daily;M edicati on Descrip tion: citalop cris; Dosage: 1; Route:o ral; refills :5; Quantit y:30 tablet Not Available Not Available Not Available amlodipine 10 mg tablet Daily active Frequen cy: daily;M edicati on Descrip tion: amlodip ine; Dosage: 1; Route:o ral; refills :0 Not Available Not Available Not Available hydrochlorothia zide 25 mg tablet Daily active Duratio n: 10 days;Fr equency : daily;M edicati on Descrip tion: hydroch lorothi azide; Dosage: 1; Route:o ral; refills :0; Quantit y:30 tablet Not Available Not Available Not Available gabapentin 400 mg tablet Three times a day active Frequen cy: tid;Med ication Descrip tion: gabapen tin; Dosage: 1; Route:o ral; refills :0 Not Available Not Available Not Available Vitals None Recorded Social History None recorded. Functional Status None recorded. Mental Status None recorded. Family History Nothing Reported. Medical History No medical history recorded. Gynecological HistoryNo gynecological history recorded. Obstetrics History GPAL:G 0 P 0 0 0 0 Past Encounters Encounter ID Performer Location Encounter Start Date Encounter Closed Date Diagnosis/Indication Diagnosis SNOMED-CT Code Diagnosis ICD10 Code Diagnosis Note [id number] JUAN HALL MD [facility] [address] [place] [address] 11/08/2024 08:39:26 11/08/2024 09:37:32 Health Concerns Section Related Observation LastModified by Organization Detai ls LastModified Time None Recorded Concern Status LastModified by Organization Details LastModified Time None Recorded Advance Directives Directive None Recorded Payers Insurance Date Sequence Insurance Name Policy Number Policy Ayala Covered Member ID Ayala Member ID Guarantor Name 11/08/2024 2 [place] Neeru Samano [id number] Neeru Samano 11/08/2024 1 [place] [id number] Neeru Samano [id number] Neeru Samano 10/25/2024 1 [facility] (MEDICAID REPLACEMENT - HMO) [id number] Randell Samano [id number] Neeru Samano OBGyn Episode No OBEpisode recorded.
--- OUTSIDE RECORDS SUMMARY | 2024-11-13 09:21 | XMS_ITS | Continuity of Care Document ---
Author Organization [facility], NEUROSURGERY [address] [place] [address] Assessment Encounter Date Assessment Date Assessment LastModified [...] Name and Address Organization Details Recorded Time 001943 Product containin g penicilli n (product) medicatio n Not available Not available Not available 04/15/20162012 95529 8001 SNOMED Comme nt: Creat ed By: Harpreet Weiss atealeta Date: 03/05 9:09: 24 AM; Not [...] SNOMED-CT Code Diagnosis ICD10 Code Diagnosis Note [id number] JUAN HALL MD [facility] [address] [place] [address] 11/08/2024 08:39:26 11/08/2024 09:37:32 Health Concerns Section Related Observation LastModified by Organization Detai ls LastModified Time None Recorded Concern Status LastModified by Organization Details LastModified Time None Recorded Payers Encounter Date Sequence Insurance Name Policy Number Policy Ayala Covered Member ID Ayala Member ID Guarantor Name 11/08/2024 1 [facility] [facility] [id number] Neeru Samano [id number] Neeru Samano 11/08/2024 2 [place] Neeru Samano [id number] Neeru Samano OBGyn Episode No OBEpisode recorded.
--- OUTSIDE RECORDS SUMMARY | 2024-11-13 09:21 | XMS_ITS | Referral Summary ---
Author Organization [employer] Address [address] [place] [address] Care Team Providers Care Family Literacy Coordinator Name Role Phone Dominic Oliva PA-C Unavailable [phone] Abhishek Griggs MD Primary Care Provider [phone] Encounters Date Type Department Care Team Description 10/25/2024 1:47 PM EDT Anesthesia Event [facility] [address] [place] [address] Rogelio Weldon MD Harter, Adam 10/25/2024 Travel 10/25/2024 1:45 PM EDT - 10/25/2024 3:[address] [facility] [address] [place] [address] Ansuhl Banks MD (LT RELEASE, CARPAL TUNNEL) 10/25/2024 9:35 AM EDT - 10/25/2024 3:30 PM EDT Hospital Encounter [facility] [address] [place] [address] Anshul Banks MD Discharge Disposition: Home or Self Care 10/22/2024 2:42 PM EDT - 10/22/2024 11:59 PM EDT Hospital Encounter [facility] Diagnostic Imaging - [address] [place] [address] Dominic Oliva PA-C Right arm pain Discharge Disposition: Home or Self Care 10/22/2024 2:15 PM EDT Office Visit [facility] Orthopedics - [address] [place] [id number] Dominic Oliva PA-C Right arm pain (Primary Dx); Internal derangement of right shoulder; History of arthroscopic surgery of right shoulder; Partial tear of right supraspinatus tendon; Right shoulder pain 09/19/2024 Travel 09/19/2024 1:00 PM EDT [facility] [address] [place] [address] Anshul Banks MD Carpal tunnel syndrome (Primary Dx); Lumbar radiculopathy; Right arm pain from Last 3 Months Allergies Active Allergy Reactions Criticality Noted Date Comments Penicillins Rash High 07/13/2022 Other reaction(s): Hives Medications losartan (COZAAR) 50 MG tablet Take 1 tablet (50 mg total) by mouth daily. Active leflunomide (ARAVA) 20 MG tablet Take 1 tablet (20 mg total) by mouth daily. Active Xarelto 20 mg tablet SMARTSI Tablet(s) By Mouth Every Evening Active Jardiance 25 mg tablet Take 1 tablet (25 mg total) by mouth every morning. Active dilTIAZem (DILACOR XR) 120 MG 24 hr capsule Take 1 capsule (120 mg total) by mouth daily. Active citalopram (CeleXA) 40 MG tablet Take 1 tablet (40 mg total) by mouth daily. Active buPROPion (WELLBUTRIN XL) 150 MG 24 hr tablet Take 1 tablet (150 mg total) by mouth every morning. Active esomeprazole (NexIUM) 40 MG capsule Take 1 capsule (40 mg total) by mouth daily. Active hydroCHLOROth iazide (HYDRODIURIL) 12.5 MG tablet Take 1 tablet (12.5 mg total) by mouth daily. Active gabapentin (NEURONTIN) 400 MG capsule Take 2 capsules (800 mg total) by mouth 2 (two) times daily. Active HYDROcodone-a cetaminophen (NORCO 7.5-325) 7.5-325 mg per tablet Take 1 tablet by mouth 4 (four) times daily as needed. Active Trulicity 4.5 mg/0.5 mL syringe Inject subcutaneously. Active EnbreL SureClick 50 mg/mL (1 mL) PnIj Inject 1 Syringe subcutaneously once a week. Active aspirin 81 MG EC tablet Take 1 tablet (81 mg total) by mouth daily. Active Repatha Syringe 140 mg/mL syringe Inject 140 mg under the skin every 14 (fourteen) days. Active bisoprolol (ZEBETA) 5 MG tablet Take 1 tablet (5 mg total) by mouth daily. Active bisoprolol (ZEBETA) 5 MG tablet Take 340 tablets (1,700 mg total) by mouth daily. 023 2024 Discontinued etanercept (EnbreL SureClick) 50 mg/mL (1 mL) pnij Inject 1 mL under the skin every 7 days. 025 2024 Discontinued(S top Taking at Discharge) HYDROcodone-a cetaminophen (NORCO) 10-325 mg per tablet Take 1 tablet by mouth every 6 (six) hours as needed for pain for up to 10 days. Max Daily Amount: 4 tablets 8 tablet 025 2024 Active Problems Problem Noted Date Diagnosed Date Atrial fibrillation Diabetes Fibromyalgia Hypertension Rheumatoid arthritis Sleep apnea Myocardial infarction Overview (10/25/2024): Afib Social History Tobacco Use Types Packs/Day Years [...] Date Francis rded Speak language other than Latvian at home Not on file 06/09/2023 Want [...] on file Sexual Orientation Not on file Last Filed Vital Signs Vital Sign Reading [...] Mass Index 35.76 10/25/2024 9:00 AM EDT Plan of Treatment Upcoming Encounters Date Type Department Care Team (Late st Contact Info) Description 12/17/2024 1:30 PM EDT Office Visit [facility] Orthopedics - [address] [place] [address] Dominic Oliva PA-C [address] [place] [address] Procedures Procedure Name Priority Date/Time Associated Diagnosis Comments NOVA GLUCOSE POC Routine 10/25/2024 2:47 PM EDT IN NEUROPLASTY &/TRANSPOS MEDIAN NRV CARPAL TUNNE 10/25/2024 1:47 PM EDT Carpal tunnel syndrome Case Notes IN 1000, 30 MIN (A) [facility] NEURO CASE NOVA GLUCOSE POC Routine 10/25/2024 11:0 3 AM EDT BASIC METABOLIC PANEL Routine 10/25/2024 11:00 AM EDT CBC W/ AUTO DIFF Routine 10/25/2024 11:0 0 AM EDT US EXTREMITY NON-VASCULAR LIMITED RIGHT Routine 10/23/2024 7:57 AM EDT Right shoulder pain XR SHOULDER COMPLETE 2 VIEWS MIN RIGHT Routine 10/22/2024 2:55 PM EDT Right arm pain from Last 3 Months Results * (ABNORMAL) Glucose, Nova Meter (10/25/2024 2:47 PM EDT) Only the most recent of2 resultswithin the time period is included. POC-GLUCOSE 126(H) 70 - 110 mg/dL 10/25/2024 2:48 PM EDT [facility] Comment: In the event of poor peripheral blood flow, venous or arterial blood should be used due to the potential of erroneous results. Protocols Followed Chairperson Anesthesiology [id number] 10/25/2024 2:48 PM EDT [facility] Blood WHOLE BLOOD / Unknown 10/25/2024 2:47 PM EDT 10/25/2024 2:47 PM EDT Narrative [facility] - 10/25/2024 2:48 PM EDT Chairperson Anesthesiology ID is - [id number] us Anshul Banks MD POINT OF CARE TEST ORDERABLES Fi nal Result [facility] [address] [phone] * (ABNORMAL) CBC with Automated Diff (10/25/2024 11:00 AM EDT) WBC 7.2 4.0 - 10.0 K/ L 10/25/2024 11:17 AM EDT [facility] RBC 5.17 3.93 - 5.22 M/ L 10/25/2024 11:17 AM EDT [facility] Hemoglobin 14.3 11.2 - 15.7 GM/DL 10/25/2024 11:17 AM EDT [facility] Hematocrit 44.5 34.1 - 44.9 % 10/25/2024 11:17 AM EDT [facility] MCV 86 79 - 95 fL 10/25/2024 11:17 AM EDT [facility] MCH 27.7 25.6 - 32.2 pg 10/25/2024 11:17 AM EDT [facility] MCHC 32.1(L) 32.2 - 35.5 GM/DL 10/25/2024 11:17 AM EDT [facility] RDW 13.6 11.7 - 14.4 % 10/25/2024 11:17 AM EDT [facility] Platelets 266 140 - 375 K/CU MM 10/25/2024 11:17 AM EDT [facility] MPV 9.1(L) 9.4 - 12.3 fL 10/25/2024 11:17 AM EDT [facility] % Neutros 45 34 - 71 % 10/25/2024 11:17 AM EDT [facility] % Lymphs 31 19 - 52 % 10/25/2024 11:17 AM EDT [facility] % Monos 10 5 - 13 % 10/25/2024 11:17 AM EDT [facility] % Eos 12(H) 1 - 6 % 10/25/2024 11:17 AM EDT [facility] % Baso 1 0 - 1 % 10/25/2024 11:17 AM EDT [facility] NRBC Absolute <0.01 0 - 0.012 K/ul 10/25/2024 11:17 AM EDT [facility] # Neutros 3.20 1.56 - 6.13 K/ L 10/25/2024 11:17 AM EDT [facility] # Lymphs 2.26 1.18 - 3.74 K/ L 10/25/2024 11:17 AM EDT [facility] # Monos 0.75 0.24 - 0.86 K/ L 10/25/2024 11:17 AM EDT [facility] # Eos 0.89(H) 0.04 - 0.36 K/ L 10/25/2024 11:17 AM EDT [facility] # Baso 0.08 0.01 - 0.08 K/ L 10/25/2024 11:17 AM EDT [facility] Immature Granulocytes-Re lative 0.10 0.01 - 0.43 % 10/25/2024 11:17 AM EDT [facility] # IG <0.03 0.00 - 0.03 K/uL 10/25/2024 11:17 AM EDT [facility] Blood Venipuncture / Unknown 10/25/2024 11:00 AM EDT 10/25/2024 11:13 AM EDT Narrative [facility] - 10/25/2024 11:17 AM EDT [...] MD LAB BLOOD ORDERABLES Final Res ult [facility] [address] [phone] * (ABNORMAL) Basic Metabolic Panel (10/25/2024 11:00 AM EDT) Sodium 140 136 - 145 meq/L 10/25/2024 11:32 AM EDT [facility] Potassium 4.2 3.4 - 5.1 meq/L 10/25/2024 11:32 AM EDT [facility] CO2 24 22 - 29 meq/L 10/25/2024 11:32 AM EDT [facility] Chloride 106 98 - 112 meq/L 10/25/2024 11:32 AM EDT [facility] Glucose 124(H) 82 - 115 mg/dL 10/25/2024 11:32 AM EDT [facility] BUN 19.1 9.8 - 20.1 mg/dL 10/25/2024 11:32 AM EDT [facility] Creatinine 0.85 0.57 - 1.11 mg/dL 10/25/2024 11:32 AM EDT [facility] BUN/Creatinine 22(H) 8 - 20 10/25/2024 11:32 AM EDT [facility] Calcium 10.4(H) 8.4 - 10.2 mg/dL 10/25/2024 11:32 AM EDT [facility] Anion Gap 14(H) 4 - 12 10/25/2024 11:32 AM EDT [facility] eGFR (mL/min/1.73m2) 79 >=60 mL/min/1.7 3m2 10/25/2024 11:32 AM EDT [facility] Osmolality Calc 283.1 mOsm/kg 11:32 AM EDT [facility] Blood Venipuncture / Unknown 10/25/2024 11:00 AM EDT 10/25/2024 11:13 AM EDT us Rogelio Weldon MD LAB BLOOD ORDERABLES Final Res ult [facility] [address] [phone] * US extremity non-vascular limited right (10/23/2024 [...] - Images obtained and saved on the [facility] Orthopedic ultrasound machine Dominic Oliva PA-C Dominic Oliva PA-C IMG US ORDERABLES Final Resul t * XR [...] degenerative changes. IMPRESSION: Negative. Dominic Oliva PA-C IM DIAGNOSTIC IMAGING ORDERA BLES Final Result from Last 3 Months Insurance KET[place] MCKEON [id number] MEDICARE PART A B CROSS/[facility] Care Teams Family Literacy Coordinator Relationship Specialty Start Date End Date Abhishek Griggs MD [address] [place] [address] PCP - General Adolescent Medicine 10/25/24 Dominic Oliva PA-C [address] [place] [address] Physician Hollow Handle Knife Assembler 10/01/24
--- OUTSIDE RECORDS SUMMARY | 2024-11-13 09:21 | XMS_ITS | Encounter Summary ---
Author Organization [employer] Address [address] [place] [address] Care Team Providers Care Air Quality Consultant Name Role Phone Dominic Oliva PA-C Unavailable [phone] Abhishek Griggs MD Primary Care Provider + [phone] Encounter Details Date Type Department Care Team (Latest Contact Info) Description 10/25/2024 Travel Social History Tobacco Use Types Packs/Day [...] Date Francis rded Speak language other than Indian at home Not on file 06/09/2023 Want [...] Description 12/17/2024 1:30 PM EDT Office Visit [facility] Orthopedics - [address] [place] [address] Dominic Oliva PA-C [address] [place] [phone] documented as of this encounter Visit Diagnoses Not on filedocumented in this encounter Care Teams Air Quality Consultant Relationship Specialty Start Date End Date Abhishek Griggs MD [address] [place] [address] PCP - General Adolescent Medicine 10/25/24 Dominic Oliva PA-C [address] [place] [address] Physician Lead Quality Control Technician 10/01/24 documented as of this encounter
--- OUTSIDE RECORDS SUMMARY | 2024-11-13 09:21 | XMS_ITS | Clinical Summary ---
Author Organization [employer] Address [address] [place] [address] Care Team Providers Care Probe Operator Name Role Phone Dominic Oliva PA-C Unavailable [phone] Ahbishek Griggs MD Primary Care Provider + [phone] Allergies Active Allergy Reactions Criticality Noted Date [...] capsule (120 mg total) by mouth daily. 023 Active citalopram (CeleXA) 40 MG tablet Take 1 tablet (40 mg total) by mouth daily. 023 Active buPROPion (WELLBUTRIN XL) 150 MG 24 [...] Max Daily Amount: 4 tablets 8 tablet 2024 Active Problems Problem Noted Date Diagnosed Date Atrial fibrillation Diabetes Fibromyalgia Hypertension Rheumatoid arthritis Sleep apnea Myocardial infarction Overview (10/25/2024): Afib Encounters Date Type Department Care Team Description 10/25/2024 1:47 PM EDT Anesthesia Event [facility] Operating Room [address] [place] [address] Rogelio Weldon MD Harter, Adam 10/25/2024 1:45 PM EDT - 10/25/2024 3:00 PM EDT Surgery [facility] Operating Room [address] [place] [address] Anshul Banks MD (LT RELEASE, CARPAL TUNNEL) 10/25/2024 9:35 AM EDT - 10/25/2024 3:30 PM EDT Hospital Encounter [facility] Operating Room [address] [place] [address] Anshul Banks MD Discharge Disposition: Home or Self Care 10/25/2024 Travel 10/22/2024 2:42 PM EDT - 10/22/2024 11:59 PM EDT Hospital Encounter [facility] Diagnostic Imaging - [address] [place] [address] Dominic Oliva PA-C Right arm pain Discharge Disposition: Home or Self Care 10/22/2024 2:15 PM EDT Office Visit [facility] Orthopedics - [address] [place] [address] Dominic Oliva PA-C Right arm pain (Primary Dx); Internal derangement of right shoulder; History of arthroscopic surgery of right shoulder; Partial tear of right supraspinatus tendon; Right shoulder pain 09/19/2024 1:00 PM EDT Office Visit [facility] Neurology - [facility] [address] [facility] [address] [place] [address] Anshul Banks MD Carpal tunnel syndrome (Primary Dx); Lumbar radiculopathy; Right arm pain 09/19/2024 Travel from Last 3 Months Family History Medical History Relation Name Comments High blood pressure Other Relation Name Status Comments Other Social History Tobacco Use Types Packs/Day Years [...] Date Francis rded Speak language other than Icelandic at home Not on file 06/09/2023 Want [...] Description 12/17/2024 1:30 PM EDT Office Visit [facility] Orthopedics - [address] [place] [address] Dominic Oliva PA-C [address] [place] [address] Health Maintenance Due Date Last Done Comments CT Colonography 1964 Colonoscopy 1965 Colorectal Cancer Screening 1965 Diabetic Kidney Health Evalu ation (KED) 1964 FOBT/FIT 1964 Fit-DNA (Cologuard) 1964 Sigmoidoscopy 1964 Diabetic Eye Exam 1974 Diabetic foot exam 1974 Depression Screening (12+) 1976 HIV Screening 1979 Hepatitis C Screening 1982 DTAP/TDAP/TD VACCINES (1 - Tdap) 1983 Pap Smear 1985 Breast Cancer Screening 2004 Lipid Panel 2009 Shingles Vaccine (Zoster) (1 of 2) 2014 Pneumococcal 50+ years (2 of 2 - PCV) 03/05/2021 03/05/2020 COVID-19 VACCINE (5 - 2023-2 5 season) 2024 02/09/2022, 03/03/2021, 06/29/2020, Additional history exists Hemoglobin A1C 10/25/2024 Influenza Vaccine (Season Ended) 2025 03/17/2022, 02/15/2021, 03/05/2020 Tobacco Cessation Counseling and Screening (12+) 10/25/2025 10/25/2024 Procedures Procedure Name Priority Date/Time Associated Diagnosis Comments NOVA GLUCOSE POC Routine 10/25/2024 2:47 PM EDT FL NEUROPLASTY &/TRANSPOS MEDIAN NRV CARPAL TUNNE 10/25/2024 [...] - 110 mg/dL 10/25/2024 2:48 PM EDT [facility] Comment: In the event of poor peripheral blood flow, venous or arterial blood should be used due to the potential of erroneous results. Protocols Followed [employer] [id number] 10/25/2024 2:48 PM EDT [facility] Blood WHOLE BLOOD / Unknown 10/25/2024 2:47 PM EDT 10/25/2024 2:47 PM EDT Narrative [facility] - 10/25/2024 2:48 PM EDT Merchant Patroller ID is - [id number] us Anshul Banks MD POINT OF CARE TEST ORDERABLES Fi nal Result [facility] [address] [phone] * (ABNORMAL) CBC with Automated Diff (10/25/2024 11:00 AM EDT) Pathologist [facility] WBC 7.2 4.0 - 10.0 K/ L 10/25/2024 11:17 AM EDT [facility] RBC 5.17 3.93 - 5.22 M/ L 10/25/2024 11:17 AM EDT [facility] Hemoglobin 14.3 11.2 - 15.7 GM/DL 10/25/2024 11:17 AM EDT [facility] Hematocrit 44.5 34.1 - 44.9 % 10/25/2024 11:17 AM EDT [facility] MCV 86 79 - 95 fL 10/25/2024 11:17 AM EDT [facility] MCH 27.7 25.6 - 32.2 pg 10/25/2024 11:17 AM EDT [facility] MCHC 32.1(L) 32.2 - 35.5 GM/DL 10/25/2024 11:17 AM EDT [facility] RDW 13.6 11.7 - 14.4 % 10/25/2024 11:17 AM EDT [facility] Platelets 266 140 - 375 K/CU MM 10/25/2024 11:17 AM EDT [facility] MPV 9.1(L) 9.4 - 12.3 fL 10/25/2024 11:17 AM EDT [facility] % Neutros 45 34 - 71 % 10/25/2024 11:17 AM EDT [facility] % Lymphs 31 19 - 52 % 10/25/2024 11:17 AM EDT [facility] % Monos 10 5 - 13 % 10/25/2024 11:17 AM EDT [facility] % Eos 12(H) 1 - 6 % 10/25/2024 11:17 AM EDT [facility] % Baso 1 0 - 1 % 10/25/2024 11:17 AM EDT [facility] NRBC Absolute <0.01 0 - 0.012 K/ul 10/25/2024 11:17 AM EDT [facility] # Neutros 3.20 1.56 - 6.13 K/ L 10/25/2024 11:17 AM EDT [facility] # Lymphs 2.26 1.18 - 3.74 K/ L 10/25/2024 11:17 AM EDT [facility] # Monos 0.75 0.24 - 0.86 K/ L 10/25/2024 11:17 AM EDT [facility] # Eos 0.89(H) 0.04 - 0.36 K/ L 10/25/2024 11:17 AM EDT [facility] # Baso 0.08 0.01 - 0.08 K/ L 10/25/2024 11:17 AM EDT [facility] Immature Granulocytes-Re lative 0.10 0.01 - 0.43 % 10/25/2024 11:17 AM EDT [facility] # IG <0.03 0.00 - 0.03 K/uL 10/25/2024 11:17 AM EDT [facility] Blood Venipuncture / Unknown 10/25/2024 11:00 AM EDT 10/25/2024 11:13 AM EDT Narrative [facility] - 10/25/2024 11:17 AM EDT When [...] MD LAB BLOOD ORDERABLES Final Res ult [facility] [address] [place] [address], [facility] [phone] * (ABNORMAL) Basic Metabolic Panel (10/25/2024 11:00 AM EDT) Sodium 140 136 - 145 meq/L 10/25/2024 11:32 AM EDT [facility] Potassium 4.2 3.4 - 5.1 meq/L 10/25/2024 11:32 AM EDT [facility] CO2 24 22 - 29 meq/L 10/25/2024 11:32 AM EDT [facility] Chloride 106 98 - 112 meq/L 10/25/2024 11:32 AM EDT [facility] Glucose 124(H) 82 - 115 mg/dL 10/25/2024 11:32 AM EDT [facility] BUN 19.1 9.8 - 20.1 mg/dL 10/25/2024 11:32 AM EDT [facility] Creatinine 0.85 0.57 - 1.11 mg/dL 10/25/2024 11:32 AM EDT [facility] BUN/Creatinine 22(H) 8 - 20 10/25/2024 11:32 AM EDT [facility] Calcium 10.4(H) 8.4 - 10.2 mg/dL 10/25/2024 11:32 AM EDT [facility] Anion Gap 14(H) 4 - 12 10/25/2024 11:32 AM EDT [facility] eGFR (mL/min/1.73m2) 79 >=60 mL/min/1.7 3m2 10/25/2024 11:32 AM EDT [facility] Osmolality Calc 283.1 mOsm/kg 11:32 AM EDT [facility] Blood Venipuncture / Unknown 10/25/2024 11:00 AM EDT 10/25/2024 11:13 AM EDT us Rogelio Weldon MD LAB BLOOD ORDERABLES Final Res ult [facility] [address] [phone] * US extremity non-vascular limited right (10/23/2024 [...] saved on the [facility] Orthopedic ultrasound machine Dominic Oliva PA-C Dominic [...] degenerative changes. IMPRESSION: Negative. Dominic Oliva PA-C [facility] DIAGNOSTIC IMAGING ORDERA BLES Final Result from Last 3 Months Insurance MEDICARE PART A B /[facility] Care Teams Probe Operator Relationship Specialty Start Date End Date Abhishek Griggs MD [address] [place] [address] PCP - General Adolescent Medicine 10/25/24 Dominic Oliva PA-C [address] [place] [address] Physician Petroleum Sampler 10/01/24
--- NOTE | 2024-11-13 09:22 | IR_ITS ---
FINAL REPORT CLINICAL HISTORY: INTERNEAL DERANGMENT OF SHOULDER 6.68 mgy .24 fluoro time FINDINGS: Arthrogram Right shoulder injection for MRI arthrogram HISTORY: Right shoulder pain. PROCEDURE: After informed consent was obtained, a time-out was performed. Utilizing local anesthesia and sterile technique, with direct fluoroscopic guidance, access to the joint was obtained . A small amount of contrast was injected to confirm needle tip location. Additional gadolinium contrast was injected. IMPRESSION: Status post injection for MRI arthrogram without immediate complication. Please see MRI report. Fluoroscopy time: 24 seconds Radiation exposure in Reference air Kerma: 6.68 mGy Reviewed, Interpreted and Dictated by Lynda Lainez MD Transcribed by JAZMYNE Logan Authenticated and [facility]
--- NOTE | 2024-11-13 09:22 | MR_ITS ---
FINAL REPORT TECHNIQUE: Multiplanar MR following intra-articular contrast injection CLINICAL HISTORY: INTERNEAL DERANGMENT OF SHOULDER COMPARISON: None FINDINGS: Marrow signal: Unremarkable Glenohumeral joint: Mild degenerative changes of the glenohumeral joint are present. No evidence of a loose body is seen. AC joint: Moderate hypertrophic changes are present with mild rotator cuff impingement. Rotator cuff: There are complete tears of the supraspinatus and infraspinatus tendons with retraction. There is moderate atrophy of the infraspinatus muscle, and mild atrophy of the supraspinatus muscle. There is a high-grade partial tear of the subscapularis tendon. Labrum: Degenerative changes of the labrum are present without a tear. Biceps tendon: There is thinning of the LHBT proximally consistent with a partial tear. IMPRESSION: Severe rotator cuff disease as described. Reviewed, Interpreted and Dictated by Lynda Lainez MD Transcribed by Pia Lerma Authenticated and [facility]
--- OUTSIDE RECORDS SUMMARY | 2024-11-13 09:22 | XMS_ITS | Clinical Summary ---
Author Organization Healthcare Address [address] [id number] Care Team Providers Care Patient Support Representative Name Role Phone Shikha Grimm APRN Primary Care Provider [phone] Social History Tobacco Use Types Packs/Day Years Used Date Smoking Tobacco: Never Comments Unknown Sex and Gender Information Value Date Recorded Sex Assigned at Not on file Legal Sex Female 7:45 PM EDT Gender Identity Not on file Sexual Orientation Not on file Last Filed Vital Signs Vital Sign Reading Time Taken Comments Blood Pressure - - Pulse - - Temperature - - Respiratory Rate - - Oxygen Saturation - - Inhaled Oxygen Concentration - - Weight 140 kg (309 lb) 10/14/2014 1:20 PM EDT Height 170.2 cm (5' 7 ) 10/14/2014 1:20 PM EDT Body Mass Index 48.4 10/14/2014 1:20 PM EDT Plan of Treatment Not on file Care Teams Patient Support Representative Relationship Specialty Start Date End Date Shikha Grimm APRN [address] [place] [address] PCP - General 10/02/20
[2024-11-13] MEDS: IOPAMIDOL-370 (76%);100ML BOTTLE 20 ML IV (10:01)
[2024-11-13] MEDS: GADOTERIDOL INJ 10ML SYRINGE IV (10:01)
== END 2024-11-13 23:59 | disposition home or self-care (01) ==
LOC: RAD 09:17
PROVIDERS: PCP Internal Medicine Adolescent Medicine; Visit Provider Student in an Organized Health Care Education/Training Program
DX: M75.121 Complete rotator cuff tear or rupture of right shoulder, not specified as traumatic (principal); M62.521 Muscle wasting and atrophy, not elsewhere classified, right upper arm; M75.111 Incomplete rotator cuff tear or rupture of right shoulder, not specified as traumatic
CPT/HCPCS: 73040; 73222; A9576; Q9967

== ENCOUNTER 2025-01-12 15:32 | Emergency (ER) | payer BC, MEDICARE, SELFPAY ==
--- OUTSIDE RECORDS SUMMARY | 2024-11-19 10:00 | XMS_ITS | Encounter Summary ---
Author Organization [employer] ([place], [place], [place], [place]) Address [address] [place] [address] Care Team Providers Care Rate Reviewer Name Role Phone Dominic Oliva PA-C Unavailable [phone] Abhishek Griggs MD Primary Care Provider + [phone] Reason for Visit * Reason Comments Follow-up Right shoulder MRI r esults Encounter Details Date Type Department Care Team (Late st Contact Info) Description 11/19/2024 10:00 AM EDT Office Visit [facility] Orthopedics - [address] [place] [place] [address] Dominic Oliva PA-C [address] [place] [address] Full Thickness tear of right supraspinatus tendon (Primary Dx); Full thickness infraspinatus tendon tear, right; Partial tear subscapularis tendon, right, initial encounter; Partial tear of biceps tendon, Right; Osteoarthritis of AC (acromioclavicular) joint, Right; Osteoarthritis of glenohumeral joint, right Social History Tobacco Use Types Packs/Day Years Used Date Smoking Tobacco: Never Smokeless Tobacco: Never Tobacco Cessation:Counseling Given: Not Answered Alcohol Use Standard Drinks/Week Comments Never 0 (1 standard drink = 0.6 oz pur e alcohol) Family and Community Support Answer Yovanny e Recorded Help with Day to Day Activities Not on file 06/09/2023 Feeling Lonely or Isolated Not on file 06/09 Educational Attainment Answer Date Francis rded Speak language other than Nepali at home Not on file 06/09/2023 Want help with school or training Not on file 06/09/2023 Substance Use Answer Date Recorded Used [...] Sign Reading Time Taken Comments Blood Pressure 126/86 11/19/2024 10:03 AM EDT Pulse 99 11/19/2024 10:03 AM EDT Temperature - - Respiratory Rate - - Oxygen Saturation - - Inhaled Oxygen Concentration - - Weight 106.6 kg (235 lb) 11/19/2024 10:03 AM EDT Height 172.7 cm (5' 8 ) 11/19/2024 10:03 AM EDT Body Mass Index 35.73 11/19/2024 10:03 AM EDT documented in this encounter Progress Notes * Dominic Oliva PA-C - 11/19/2024 10:00 AM EDT Images from the original note were not included. NAME: Neeru Samano CSN: [id number] : 1965 PCP: Abhishke Griggs MD REASON FOR VISIT Follow-up (Right shoulder MRI results) HPI Neeru Samano is a 59 y.o. female Established patient presents for right shoulder MRI results. Patient reports no change in the rightshoulder. Patient reports still having pain in the humerus area of the shoulder. Patient rates her pain 8/10 in office. Patient had left carpal tunnel release with Dr. Banks on 10/25/2024. PREVIOUS PLAN FROM 10/22/2024 Based on patient's history, physical exam, review [...] surgery and also risk of rupture to the supraspinatus tendon. We will order advanced imaging with MRI for further evaluation for possible surgical planning. Patient was agreeable with this plan. Will follow-up after MRI to discuss results. Return to clinic if condition worsens or new symptoms arise CURRENT MEDICATIONS Current Outpatient Medications Medication Instructions aspirin 81 mg, Daily bisoprolol (ZEBETA) 5 mg, oral, Daily buPROPion XL (WELLBUTRIN XL) 150 mg, [...] Medical History: Diagnosis Date Arthritis Atrial fibrillation (HCC) 2014 Carpal tunnel syndrome 2-25 Diabetes ([facility]) Fibromyalgia Fibromyositis 2017 Hypertension Low back pain 1993 Myocardial infarction ([facility]) 2014 Afib Rheumatoid arthritis (HCC) 2016 Sleep apnea Past Surgical History: Procedure Laterality Date BACK SURGERY 1997 2back surgeries CHOLECYSTECTOMY FOOT FUSION FOOT SURGERY 2019 Ankle fusion NECK SURGERY RELEASE,CARPAL TUNNEL Left 10/25/2024 Procedure: (LT RELEASE, CARPAL TUNNEL); Surgeon: Anshul Banks MD; Location: [facility]; Service: Neurological Surgery; Laterality: Left; SHOULDER SURGERY SPINAL FUSION 1998 SPINE SURGERY 1993 Lumbar fusion SPINE SURGERY 1997 Lumbar bone cage SOCIAL HISTORY Social History [...] skin discoloration and no rash. OBJECTIVE Vitals: 11/19/24 1003 BP: 126/86 Pulse: 99 Weight: 106.6 kg (235 lb) Height: 1.727 m (5' 8 ) Body mass index is 35.73 kg/m??. BMI Plan: High BMI-Exercise counseling provided [...] and affect. Her behavior is normal. Clinical customer marketing assistant note and vitals reviewed Right shoulder [...] AC joint Modified Cross Arm: Positive Labrum Marshall's: Negative Anterior apprehension: Negative Crank Test: Positive Glenohumeral: Compression Rotation Positive IMAGING/OUTSIDE REPORTS Personally Reviewed MRI results Findings: Marrow signal: Unremarkable Glenohumeral joint: Mild degenerative changes of the glenohumeral jointare present. No evidence of a loose body is seen. AC joint: Moderate hypertrophic changes are present with mild rotator cuff impingement. Rotator cuff: There are complete tears of the supraspinatus and infraspinatus tendons with retraction. There is moderate atrophy of the infraspinatus muscle, andmild atrophy of the supraspinatus muscle. There is a high-grade partial tear of the subscapularis tendon. Labrum: Degenerative changes of the labrum are present without a tear. Bicep Tendon: There isthinning of the LHBT proximally consistent with a partial tear. Impression: Severe Rotator cuff disease as described. 10/22/2024 Examination: Point of Care Ultrasound of [...] - Images obtained and saved on the [facility] Orthopedic ultrasound machine Dominic Oliva PA-C 10/22/2024 XR shoulder complete 2 views min right Narrative: Right shoulder HISTORY: Right shoulder pain FINDINGS: 3 views. Joint compartments appear maintained and are normally aligned. There are no acute or old fractures. There are no significant degenerative changes. Impression: Negative. ASSESSMENT Diagnoses and all orders for this visit: Full Thickness tear of right supraspinatus tendon Full thickness infraspinatus tendon tear, right Partial tear subscapularis tendon, right, initial encounter Partial tear of biceps tendon, Right Osteoarthritis of AC (acromioclavicular) joint, Right Osteoarthritis of glenohumeral joint, right DISCUSSION Discussed with the patient regarding rotator [...] 20 minutes 2-3 times a day Discussed surgical treatment for rotator cuff tears Reverse Shoulder replacement discussed as surgical treatment Will schedule patient with Dr. Suh Advised patient to bring MRI disc to appointment Explanation of plan: Based on patient's history, physical exam, review of radiology exams Neeru has a right complete tear of supraspinatus and infraspinatus tendons, partial tear of the right subscapularis, partial tear of the right bicep tendon, AC joint osteoarthritis and glenohumeral joint osteo arthritis. We discussed treatment options for rotator cuff tearing as stated above. I recommend patient follow-up with Dr. Suh in [place] to discuss a right reverse shoulder replacement. Patient agreeable with this plan. Follow-up at the next available appointment with Dr. Suh. Patient instructed to bring her MRI disc Return to clinic if condition worsens or new symptoms arise Return in 2 days (on 11/21/2024) for DSX Reverse right shoulder w/ Dr. Suh. I, Dominic Oliva PA-C, personally performed the services described in this documentation, as scribed by Deborah Eisenberg CMA , in my presence, and is both accurate and complete. Electronically Signed, Dominic Oliva PA-C 11/19/2024 8:10 AM Parts of this document/medical record have been dictated via [employer] speech recognition software, which may cause errors in spelling or accurate dictation. Attempts have been madeto proofread and correct all errors. Please contact me with any questions. documented in this encounter Plan of Treatment Upcoming Encounters Date Type Department Care Team (Late st Contact Info) Description 01/27/2025 12:30 PM EDT Office Visit [facility] Orthopedics - [address] [address] Raúl Suh MD [address] [place] [id number] documented as of this encounter Visit Diagnoses Diagnosis Full Thickness tear of right supraspinatus tendon- Primary Full thickness infraspinatus tendon tear, right Partial tear subscapularis tendon, right, initial encounter Partial tear of biceps tendon, Right Osteoarthritis of AC (acromioclavicular) joint, Right Osteoarthritis of glenohumeral joint, right documented in this encounter Care Teams Rate Reviewer Relationship Specialty Start Date End Date Abhishek Griggs MD [address] [place] [address] PCP - General Adolescent Medicine 10/25/24 Dominic Oliva PA-C [address] [place] [address] Physician Communications Strategist 10/01/24 documented as of this encounter
--- OUTSIDE RECORDS SUMMARY | 2024-11-21 09:15 | XMS_ITS | Encounter Summary ---
Author Organization [employer] ([place], [place], [place], [place]) Address [address] [place] [address] Care Team Providers Care Director Digital Communications Name Role Phone Dominic Oliva PA-C Unavailable [phone] Abhishek Griggs MD Primary Care Provider + [phone] Reason for Referral * Diagnostic X-Ray (Routine) - Pending Review Specialty Diagnoses / Procedures Referred By Howie rondon Referred To Contact Radiology Diagnoses Tear of right supraspinatus tendon Osteoarthritis of glenohumeral joint, right Pre-op testing Procedures XR chest 2 views Raúl Suh MD [address] [place] [id number] Phone: tel: fax: [facility] [address] [place] [phone] Phone: tel: fax: Referral ID Status Reason Start Date Expiration Date V isits Requested Visits Authorized [id number] Pending Review 11/21/2024 11/21/2025 1 1 * Other (Routine) - New Request Specialty Diagnoses / Procedures Referred By Contnehal t Referred To Contact Diagnoses Tear of right supraspinatus tendon Osteoarthritis of glenohumeral joint, right Pre-op testing Procedures ECG 12 lead Raúl Suh MD [address] [place] [address] Phone: tel: fax: Referral ID Status Reason Start Date Expiration Date V isits Requested Visits Authorized [id number] New Request 11/21/2024 11/21/2025 1 1 * CAT Scan (Routine) - Closed Specialty Diagnoses / Procedures Referred By Contac t Referred To Contact Radiology Diagnoses Tear of right supraspinatus tendon Osteoarthritis of glenohumeral joint, right Pre-op testing Procedures CT upper extremity without contrast right Raúl Suh MD [address] [place] [address] Phone: tel: fax: [facility] Imaging [address] [place] [address] Phone: tel: fax: Referral ID Status Reason Start Date Expiration Date Visits Re quested Visits Authorized [id number] Closed 11/28/2024 11/28/2025 1 1 Reason for Visit * Reason Comments Follow-up Right shoulder dx reese rgery Encounter Details Date Type Department Care Team (Late st Contact Info) Description 11/21/2024 9:15 AM EDT Office Visit [facility] Orthopedics - [address] [phone] Raúl Suh MD [address] [place], [place] [id number] Full Thickness tear of right supraspinatus tendon (Primary Dx); Full thickness infraspinatus tendon tear, right; Partial tear subscapularis tendon, right, initial encounter; Partial tear of biceps tendon, Right; Osteoarthritis of AC (acromioclavicular) joint, Right; Osteoarthritis of glenohumeral joint, right; Rotator cuff arthropathy of right shoulder; Pre-op testing Social History Tobacco Use Types Packs/Day Years [...] Date Francis rded Speak language other than Hungarian at home Not on file 06/09/2023 Want [...] Sign Reading Time Taken Comments Blood Pressure 123/75 11/21/2024 9:03 AM EDT Pulse 77 11/21/2024 9:03 AM EDT Temperature - - Respiratory Rate - - Oxygen Saturation - - Inhaled Oxygen Concentration - - Weight 106.6 kg (235 lb) 11/21/2024 9:03 AM EDT Height 172.7 cm (5' 8 ) 11/21/2024 9:03 AM EDT Body Mass Index 35.73 11/21/2024 9:03 AM EDT documented in this encounter Progress Notes * Raúl Suh MD - 11/21/2024 9:15 AM EDT Images from the original note were not included. NAME: Neeru Samano CSN: [id number] : 1965 PCP: Abhishek Griggs MD REASON FOR VISIT Follow-up (Right shoulder dx surgery) Is this Worker's Comp? No HPI Neeru Samano is a 59 y.o. female Patient presents today to discuss surgical options for the Right Shoulder. Patient is referred by Dominic Oliva PA-C. Patient reports that she has difficulty with raising the arm or internal rotation. She reports that increased pain with these activities to which she describes as sharp, throbbing,burning, and achy. Patient reports that she takes hydrocodone PRN. Patient rates her pain a / int office. Interval HPI: 10/22/24 with Dominic Oliva PA-C New Patient Right Shoulder Onset: around the [...] History: Diagnosis Date Arthritis Atrial fibrillation (HCC) 2015 Carpal tunnel syndrome 2-25 Diabetes (HCC) Fibromyalgia Fibromyositis 2018 Hypertension Low back pain 1994 Myocardial infarction (HCC) 2015 Afib Rheumatoid arthritis (HCC) 2016 Sleep apnea Past Surgical History: Procedure Laterality Date BACK SURGERY 1997 2back surgeries CHOLECYSTECTOMY FOOT FUSION FOOT SURGERY 2019 Ankle fusion NECK SURGERY RELEASE,CARPAL TUNNEL Left 10/25/2024 Procedure: (LT RELEASE, CARPAL TUNNEL); Surgeon: Anshul Banks MD; Location: [facility]; Service: Neurological Surgery; Laterality: Left; SHOULDER SURGERY SPINAL FUSION 1997 SPINE SURGERY 1993 Lumbar fusion SPINE SURGERY 1997 Lumbar bone cage SOCIAL HISTORY Social History Tobacco Use Smoking status: Never Smokeless tobacco: Never Substance Use Topics Alcohol use: Never Drug use: Never FAMILY HISTORY Family History Problem Relation Name Age of Onset High blood pressure Other REVIEW OF SYSTEMS General: No recent fever or chills, no recent weight loss or weight gain, no insomnia HEENT: No change in vision, no glasses/contacts, no hearing loss, no tinnitus, no vertigo, no congestion/sinus issues CVS: No chest pain, no palpitations, no edema, no varicose veins Resp: No dyspnea, no wheezing, no cough, no hemoptysis GI: No dysphagia, no nausea, no vomiting, no heart burn, no constipation, no diarrhea : No dysuria, no hematuria, no nocturia, no history of chronic UTI Musculoskeletal: See HPI Derm: No rash, no abrasions, no skin discoloration, no history or MRSA Neuro: See HPI Endo: No cold/heat intolerance Heme: No abnormal bruising or bleeding Psych: No depression, no anxiety, no fatigue, no mood swings Scribe Attestation: IKelley RTR acted as a scribe and transcribed components of the current encounter under the direction of the Attending Provider. I have not been involved in providing any clinical treatments or patient care. Electronically Signed, SINAN Mathur OBJECTIVE Vitals: 11/21/24 0903 BP: 123/75 Pulse: 77 Weight: 106.6 kg (235 lb) Height: 1.727 m (5' 8 ) Ortho Exam Right shoulder Inspection: equal muscular bulk, no [...] AC joint Modified Cross Arm: Positive Labrum Bullitt's: Negative Anterior apprehension: Negative Crank Test: Positive Glenohumeral: Compression Rotation Positive IMAGING/OUTSIDE REPORTS MRI report from [facility] performed on 11/13/24 was reviewed today revealing: Previous xrays 10/22/24 ASSESSMENT Problem List Items Addressed This Visit Osteoarthritis of glenohumeral joint, right Relevant Orders Case request operating room: ARTHROPLASTY, SHOULDER, TOTAL, REVERSE (Completed) Osteoarthritis of AC (acromioclavicular) joint, Right Partial tear of biceps tendon, Right Partial tear subscapularis tendon, right, initial encounter Full Thickness tear of right supraspinatus tendon - Primary Relevant Orders Case request operating room: ARTHROPLASTY, SHOULDER, TOTAL, REVERSE (Completed) Full thickness infraspinatus tendon tear, right Rotator cuff arthropathy of right shoulder DISCUSSION Arthritis of shoulder Discussed pathophysiology, anatomy, progression [...] total shoulder arthroplasty. Patient verbalized their understanding. Discussed with the patient regarding rotator cuff [...] chronicity, tear size, patient age and comorbidities. PLAN Return for post op appointment. Rest Ice Follow up after post-operatively/procedure, as scheduled Return to clinic sooner if new or worse symptoms occur Watch for s/s of infection, contact office if seen CT DEVON form gave in office for patient to get CT prior to surgery Advised taking half the dose of the blood thinner for 2 weeks after surgery SURGICAL PLANNING Surgical Procedure scheduled today in office: right Reverse Total Shoulder Arthroplasty Special Surgical Procedure Needs: Shoulder Surgery Scopes/TSA: Patient will be placed in a pre-fabricated rigid shoulder abductioin brace post surgery. Diagnosis Discussion: RTC Tear: Discussed with the patient regarding rotator cuff tears. Natural history depends upon patient factors and biologic factors related to the muscle-tendon unit. Smaller, partial-thickness tears in lower- demand patients may do well with nonsurgical management. Tears of any size in higher-demand patients MAY lead to chronic pain and weakness if left untreated. The extent of irreversible muscle atrophy depends upon chronicity, tear size, patient age and comorbidities. Shoulder Osteoarthritis: Arthritis of shoulder Discussed pathophysiology, anatomy, progression and treatment options of shoulder joint osteoarthritis. Osteoarthritis is commonly known as wear and tear in a joint. These symptoms can occur after trauma, but most of the time they occur as the patient ages. There is no definitive non-surgical treatment for arthritis and thus treatment focuses [...] total shoulder arthroplasty. Patient verbalized their understanding. Surgical Risk Discussion: Upper Extremity Total Joint Surgical Risk: The risks and benefits of the planned surgery were discussed in depth with the patient. Potential complications including inherentrisk of anesthesia, infection, neurovascular damage, DVT(See below), and rare but real potential loss of limb or life were all reviewed. Patient voices understanding and seems to understand to my satisfaction and wishes to proceed with surgery. I gave them no guarantees in regard to outcomes of this surgery. This patient has pain related to the affected joint. This has caused limitations in activities of daily living in terms of sleep disturbance. NSAIDs, physical therapy, intra-articular inject ions, have failed to resolve symptoms. Physical examination findings correlate with subjective complaints. Imaging studies also correlate with subjective complaints. This patient is an appropriate candidate for total joint arthroplasty. Patient has tried and failed:Activity Modification NSAIDs Home Exercise Program provided by Provider in office Discussed increased risk of developing a deep venous thrombosis (DVT). Discussed signs and symptomsof a DVT, as well as a pulmonary embolus (PE). Discussed ways to reduce this risk including anti-coagulants which patient will be placed on postoperatively, elevating extremity at rest, and motion ofupper/lower extremity throughout the day to include, but not limited to, hand/ankle pumps. Patient to notify my office if signs or symptoms develop consistent with a DVT or PE. Instructed patient to go to ED if unavailable to reach our office and developing signs of shortness of breath or severe calf pains. Patient verbalizes understanding Narcotic Education/Discussions: KEVEN performed and reviewed Patient Treats with Pain Management: Yes: Will Contact Pain Management Provider to notify them of surgical procedure. Pain Management Facility Dr. Abhishek Griggs at [facility]. Pain ManagementPhone Number [phone]. Major Surgery: We will prescribe opioids after major surgery for 14 days or less with no refills. Patient education using written material provided to patient: Education, guidance, and counseling about medication: Discussed - Schedule II controlled substance(s) will be prescribed according to your orthopedic care and medical necessity. Schedule II controlled substance(s) are only required for a certain amount of time. Every effort on our part will be usedto switch you over to non-narcotic pain medications as soon as your pain level permits. Our office, your pharmacy, and your insurance company will closely monitor your prescription refills for excessive abuse or intermediate school teacher use. If necessary, you will be referred to paint roller winder. We will monitor your use of scheduled drugs through the KEVEN program. In addition, we will follow the monitoring procedures required by the [facility]. The side effects of Schedule II controlled substance(s) / narcotic medications can include GI upset, constipation, drowsiness, dizziness, impaired judgement, itching, rash, and risk of overdose. Narcotic pain medication has high potential for addiction and abuse if not taken properly. You must follow the dosage prescribed to decrease your riskof dependency and / or abuse. Our goal is to decrease you dosage to avoid withdrawal symptoms. Our goal is to have you off of narcotic pain medication as soon as possible. Opioid treatment agreement signed written consent obtained to prescribe controlled substances. Discussed the risks and benefits of the use of controlled substances with patient, including the risk oftolerance and drug dependence. Patient understands these terms Preoperative Education/Discussion Regarding Modifiable Risk Factors Smoking: Patient is a current Non-smoker Body mass index is 35.73 kg/m??. Body Mass Index:Patient's current BMI =< 35 Diabetic: Patient is Diabetic: Patient is currently being treated for their diabetes by an outside provider. A1C less than 8 Kellgren-Rigo score: Kellgren-Rigo Score not needed for this surgical case [place] Classification System: Not applicable to patient [place] Classification: Type 4A: Glenohumeral arthritis without acetabularization, Acromiohumeral interval <7mm ASES SURVEY 1.) Usual work: Retired 2.) Sports or leisure activity: None 3.) Do you have shoulder pain at night? Yes 4.) Do you take acetamenophen or NSAIDs for pain? Yes 5.) Do you take strong pain medication such as narcotics? Yes 6.) How many pills do you take in a day? 4 7.) Intensity of Pain (1-10) = 7 For the following questions use the scale below: Not difficult 0 Somewhat difficult 1 Very difficult 2 Unable to do 3 8.) Is it difficult for you to put coat on: 1 9.) Is it difficult for you to sleep on affected side? 3 10.) Is it difficult for you to wash your back/do up bra? 2 11.) Is it difficult for you to manage toiletting? 0 12.) Is it difficult for you to comb your hair? 2 13.) Is it difficult for you to reach a high shelf? 2 14.) Is it difficult for you to lift 10lbs. above your shoulder? 2 15.) Is it difficult for you to throw a ball overhead? 2 16.) Is it difficult for you to do your usual work? 2 17.) Is it difficult for you to do your sport or leisure activity? 2 Score (questions 8-17): 18 Maximum functional score is 30 (Question #7 answer x 5) + Score = 35 PROMIS-10 SURVEY In general, would you say your health Is ? +2 Fair In general, would you say your Quality of life Is? +4 Very Good In general, how would you rate your physical Health? +2 Fair In general, how would you rate your mental health Including your mood and your ability to think? +4 Very Good In general, how would you rate your satisfaction with Your social activity and relationships? +4 Very Good In general, please rate how well you carry out your Usual social activities and roles ( This includes Activities at home, at work and in your community, and Responsibilities as a parent, child, spouse, Employee, friend ect) +4 Very Good To what extent are you able to carry out your Everyday physical activities such as walking, climbing Stairs, carrying groceries, or moving a chair? +2 A little IN THE PAST 7 DAYS How often have you bothered by emotional problems Such as feeling anxious, depressed, or irritable? +2 A few times/Much less than half the time How would you rate your fatigue on average? +4 Mild How would you rate your pain on average?(1-10) 2 (Scoring pain: no pain = 5, 1-3 = 4, 4-6= 3, 7-9= 2, 10 pain=1) Total PROMIS-10 Score: 28 SILS-2 How comfortable are you filling out medical Forms by yourself? +4 Extremely What amount of pain have you experienced in the Last week in your other shoulder? 0 none Scribe Attestation: Deborah Sidhu CMA acted as a scribe and transcribed components of the current encounter under the direction of the Attending Provider. I have not been involved in providing any clinical treatments or patient care. Electronically Signed, Deborah Eisenberg CMA I, James Rollins, MD attest that I have examined the above patient. I have dictated the exam, diagnosis, and plan to the scribe listed above to be transcribed into this document. I have supplemented the above documentation as warranted. I attest that I have reviewed the above documentation in its entirety and concur. Electronically Signed, Raúl Suh MD 11/21/2024 9:38 AM NEHAT Mj Dotson: Suzanna ACEVES / MONIQUE is undergoing an EHR transition as of this date of service. There may be a delay in uploading older paper and EHR chart data to this new system. The above encounter has been documented to the best of the provider's working knowledge of the EHR in conjunction with medical information provided by the patient (and/or the patient's family member). documented in this encounter Plan of Treatment Upcoming Encounters Date Type Department Care Team (Late st Contact Info) Description 01/27/2025 12:30 PM EDT Office Visit [facility] Orthopedics - [address] [phone] Raúl Suh MD [address] [place] [address] Scheduled Orders Name Type Priority Associated Diagnoses Orde r Schedule Urinalysis, Reflex Microscopic and Culture If Indicated Lab Routine Full Thickness tear of right supraspinatus tendon Osteoarthritis of glenohumeral joint, right Pre-op testing Expected: 12/03/2024 (Approximate), Expires: 11/21/2025 documented as of this encounter Results * CT upper extremity without contrast right (11/21/2024 10:44 AM EDT) Anatomical Region Laterality Modality Upper Extremity, Shoulder, H umerus, Elbow, Forearm, Wrist, Hand Computed Tomography (CT) 11/21/2024 10:5 8 AM EDT Impressions 11/21/2024 11:02 AM EDT Degenerative changes as detailed. Narrative 11/21/2024 11:[address] of the right shoulder HISTORY: Preoperative for right shoulder surgery FINDINGS: Noncontrast axial, sagittal, and coronal images. No prior CT exams. This study was performed with techniques to keep radiation doses as low as reasonably achievable (ALARA). Individualized dose reduction techniques using automated exposure control or adjustment of mA and/or kV according to the patient's size were employed. There is moderately severe narrowing of the AC joint. There is mild narrowing of the glenohumeral joint. There is mild spurring from the lesser tuberosity. There are no fractures. The distal acromium is mildly downsloping contributing to mild outlet narrowing. Procedure Note Emilia Schneider MD - 11/21/2024 CT of the right shoulder HISTORY: Preoperative for right shoulder surgery FINDINGS: Noncontrast axial, sagittal, and coronal images. No prior CT exams. This study was performed with techniques to keep radiation doses as low as reasonably achievable (ALARA). Individualized dose reduction techniques using automated exposure control or adjustment of mA and/or kV according to the patient's size were employed. There is moderately severe narrowing of the AC joint. There is mild narrowing of the glenohumeral joint. There is mild spurring from the lesser tuberosity. There are no fractures. The distal acromium is mildly downsloping contributing to mild outlet narrowing. IMPRESSION: Degenerative changes as detailed. Raúl Suh MD IMG CT ORDERABLES Final Resul t * ECG 12 lead (11/21/2024 10:34 AM EDT) VENTRICULAR RATE EKG/MIN 76 BPM GE MUSE ATRIAL RATE (MCT) 76 BPM GE MUSE SC Interval 156 ms GE MUSE QRS-INTERVAL (MSEC) 92 ms GE MUSE QT Interval 396 ms GE MUSE QTC Interval 445 ms GE MUSE P Hubbard 40 degrees GE MUSE R AXIS (MCT) 56 degrees GE MUSE T Wave Hubbard 55 degrees GE MUSE [place] Diagnosis Normal sinus rhythm Nonspecific ST and T wave abnormality Abnormal ECG No previous ECGs available Confirmed by Gemini MITCHELL RICHARD ([id number]) on 11/21/2024 11:56:15 AM GE MUSE 11/21/2024 10:3 4 AM EDT 11/21/2024 11:56 AM EDT Raúl Suh MD ECG ORDERABLES Final Result GE MUSE * XR chest 2 views (11/21/2024 10:33 AM EDT) Anatomical Region Laterality Modality Chest X-Ray 11/21/2024 11:4 6 AM EDT Impressions 11/21/2024 11:51 AM EDT No acute cardiopulmonary process. Images reviewed, interpreted, and dictated by Dr. Elijah Russo. Transcribed by Jazmyne Prabhakar Narrative 11/21/2024 11:51 AM EDT TWO-VIEW CHEST HISTORY: Preop clearance for shoulder surgery, hypertension. COMPARISON: None. FINDINGS: The heart is normal in size. The mediastinum is unremarkable. The lungs are well expanded. There is no edema or infiltrate. There are no effusions. There is no pneumothorax. There are postoperative changes of the cervical spine. Procedure Note Elijah Russo MD - 11/21/2024 TWO-VIEW CHEST HISTORY: Preop clearance for shoulder surgery, hypertension. COMPARISON: None. FINDINGS: The heart is normal in size. The mediastinum is unremarkable. The lungs are well expanded. There is no edema or infiltrate. There are no effusions. There is no pneumothorax. There are postoperative changes of the cervical spine. IMPRESSION: No acute cardiopulmonary process. Images reviewed, interpreted, and dictated by Dr. Elijah Russo. Transcribed by Jazmyne Prabhakar Raúl Suh MD IMG DIAGNOSTIC IMAGING ORDERA BLES Final Result * (ABNORMAL) MRSA Screen (11/21/2024 10:31 AM EDT) Pathologist [facility] MRSA by PCR [facility] MRSA Detected by PCR(A) MRSA Not Detected by PCR DEVICE ID9 11/21/2024 4:20 PM EDT [facility] Nasal BOTH ANTERIOR NARES / Unknown 11/21/2024 10:31 AM EDT 11/21/2024 10:32 AM EDT Raúl Suh MD MICROBIOLOGY - GENERAL ORDERA BLES Final Result [facility] [address] [place] [address] * (ABNORMAL) Comprehensive metabolic panel (11/21/2024 10:31 AM EDT) Sodium 137 136 - 145 meq/L 11/21/2024 11:13 AM EDT [facility] Potassium 3.9 3.5 - 5.1 meq/L 11/21/2024 11:13 AM EDT [facility] Chloride 103 98 - 107 meq/L 11/21/2024 11:13 AM EDT [facility] CO2 28 21 - 32 meq/L 11/21/2024 11:13 AM [facility] Calcium 9.9 8.5 - 10.1 mg/dL 11/21/2024 11:13 AM [facility] Glucose 138(H) 70 - 99 mg/dL 11/21/2024 11:13 AM [facility] BUN 17 7 - 18 mg/dL 11/21/2024 11:13 AM [facility] Creatinine 0.91 0.55 - 1.10 mg/dL 11/21/2024 11:13 AM [facility] BUN/Creatinine 19 11/21/2024 11:13 AM [facility] Albumin 3.9 3.4 - 5.0 g/dL 11/21/2024 11:13 AM [facility] Alkaline Phosphatase 96 46 - 116 U/L 11/21/2024 11:13 AM [facility] ALT 13 12 - 78 U/L 11/21/2024 11:13 AM [facility] AST 20 15 - 37 U/L 11/21/2024 11:13 AM [facility] Total Bilirubin 0.6 0.2 - 1.0 mg/dL 11/21/2024 11:13 AM [facility] Protein, Total 8.2 6.4 - 8.2 gm/dL 11/21/2024 11:13 AM [facility] Anion Gap 10(L) 11 - 22 11/21/2024 11:13 AM [facility] A/G Ratio 0.9 11/21/2024 11:13 AM [facility] Globulin 4.3 g/dL 11/21/2024 11:13 AM [facility] Osmolality Calc 277.6 mOsm/kg 11:13 AM [facility] eGFR (mL/min/1.73m2) >60 >=60 mL/min/1.7 3m2 11/21/2024 11:13 AM [facility] Comment:ESTIMATED GFR IS NOT ACCURATE CREATININE CLEARANCE IN PREDICTING GLOMERULAR FILTRATION RATE. ESTIMATED GFR IS NOT APPLICABLE FOR DIALYSIS PATIENTS. Blood Venipuncture / Unknown 11/21/2024 10:31 AM EDT 11/21/2024 10:32 AM EDT us Raúl Suh MD LAB BLOOD ORDERABLES Final Re sult [facility] [address] [phone] * (ABNORMAL) CBC with automated diff (11/21/2024 10:31 AM EDT) WBC 8.9 4.8 - 10.8 K/ L 11/21/2024 10:56 AM EDT [facility] RBC 5.06 3.50 - 5.20 M/ L 11/21/2024 10:56 AM EDT [facility] Hemoglobin 14.4 11.7 - 15.8 GM/DL 11/21/2024 10:56 AM EDT [facility] Hematocrit 43.3 35.0 - 47.0 % 11/21/2024 10:56 AM EDT [facility] MCV 86 81 - 101 fL 11/21/2024 10:56 AM EDT [facility] MCH 28.5 27.0 - 34.0 pg 11/21/2024 10:56 AM EDT [facility] MCHC 33.3 32.0 - 36.0 GM/DL 11/21/2024 10:56 AM EDT [facility] RDW 13.9 11.5 - 14.5 % 11/21/2024 10:56 AM EDT [facility] Platelets 256 150 - 400 K/CU MM 11/21/2024 10:56 AM EDT [facility] MPV 8.6(L) 9.4 - 12.4 fL 11/21/2024 10:56 AM EDT [facility] Nucleated Red Blood Cell 0.0 0 - 0.2 % 11/21/2024 10:56 AM EDT [facility] NRBC Absolute <0.01 0 - 0.012 K/ul 11/21/2024 10:56 AM EDT [facility] Blood Venipuncture / Unknown 11/21/2024 10:31 AM EDT 11/21/2024 10:32 AM EDT Narrative [facility] - 11/21/2024 10:56 AM EDT When CBC w/ Auto Diff [...] Flag noted Atypical Lymph flag noted us Raúl Suh MD LAB BLOOD ORDERABLES Final Re sult [facility] [address] [phone] documented in this encounter Visit Diagnoses Diagnosis Full Thickness tear of right supraspinatus tendon- Primary Full thickness infraspinatus tendon tear, right Partial tear subscapularis tendon, right, initial encounter Partial tear of biceps tendon, Right Osteoarthritis of AC (acromioclavicular) joint, Right Osteoarthritis of glenohumeral joint, right Rotator cuff arthropathy of right shoulder Pre-op testing Unspecified pre-operative examination Full Thickness tear of right supraspinatus tendon Osteoarthritis of glenohumeral joint, right Pre-op testing Unspecified pre-operative examination Full Thickness tear of right supraspinatus tendon Osteoarthritis of glenohumeral joint, right Pre-op testing Unspecified pre-operative examination documented in this encounter Care Teams Director Digital Communications Relationship Specialty Start Date End Date Abhishek Griggs MD [address] [place] [address] PCP - General Adolescent Medicine 10/25/24 Dominic Oliva PA-C [address] [place] [address] Physician Baggage Handler 10/01/24 documented as of this encounter
--- OUTSIDE RECORDS SUMMARY | 2024-11-21 10:15 | XMS_ITS | Encounter Summary ---
Author Organization [employer] ([place], [place], [place], [place]) Address [address] [place] [address] Care Team Providers Care Paleologist Name Role Phone Dominic Oliva PA-C Unavailable [phone] Abhishek Griggs MD Primary Care Provider + [phone] Reason for Referral * Diagnostic X-Ray (Routine) - Pending Review Specialty Diagnoses / Procedures Referred By Howie rondon Referred To Contact Radiology Diagnoses Tear of right supraspinatus tendon Osteoarthritis of glenohumeral joint, right Pre-op testing Procedures XR chest 2 views Raúl Suh MD [address] [place] [address] Phone: tel: fax: [facility] [address] [place] [phone] Phone: tel: fax: Referral ID Status Reason Start Date Expiration Date V isits Requested Visits Authorized [id number] Pending Review 11/21/2024 11/21/2025 1 1 Reason for Visit * Diagnostic X-Ray (Routine) - Pending Review Specialty Diagnoses / Procedures Referred By Howie rondon Referred To Contact Radiology Diagnoses Tear of right supraspinatus tendon Osteoarthritis of glenohumeral joint, right Pre-op testing Procedures XR chest 2 views Raúl Suh MD [address] [place] [address] Phone: tel: fax: [facility] [address] [place] [phone] Phone: tel: fax: Referral ID Status Reason Start Date Expiration Date V isits Requested Visits Authorized [id number] Pending Review 11/21/2024 11/21/2025 1 1 Encounter Details Date Type Department Care Team (Late st Contact Info) Description 11/21/2024 10:15 AM EDT - 11/21/2024 10:17 AM EDT Hospital Encounter [facility] [address] [place] [phone] Raúl Suh MD [address] [place] [phone] Full Thickness tear of right supraspinatus tendon; Osteoarthritis of glenohumeral joint, right; Pre-op testing Discharge Disposition: Home or Self Care Social [...] Date Francis rded Speak language other than Azeri at home Not on file 06/09/2023 Want [...] mg total) by mouth every morning. 06/15/2023 celecoxib (CeleBREX) 200 MG capsule Take 1 capsule (200 mg total) by mouth daily for 30 days. 30 capsule 12/17/2024 citalopram (CeleXA) 40 MG tablet Take 1 [...] (12.5 mg total) by mouth daily. 05/24/2023 Jardiance 25 mg tablet Take 1 tablet [...] 4.5 mg/0.5 mL syringe Inject subcutaneously. 06/15/2023 cefadroxil (DURICEF) 500 MG capsule Take 1 capsule (500 mg total) by mouth 2 (two) times daily for 7 days. 14 capsule 12/17/2024 HYDROcodone-stephanie taminophen (NORCO) 10-325 mg per tablet Take 1 tablet by mouth every 6 (six) hours as needed for pain for up to 7 days. Max Daily Amount: 4 tablets 28 tablet 12/17/2024 5 traMADoL (ULTRAM) 50 mg tablet Take 1 tablet (50 mg total) by mouth 2 (two) times daily for 7 days. Max Daily Amount: 100 mg 14 tablet 12/17/2024 5 Xarelto 20 mg tablet Take 0.5 tablets (10 mg total) by mouth daily with breakfast for 14 days. 7 tablet 12/17/2024 5 HYDROcodone-stephanie taminophen (NORCO 7.5-325) 7.5-325 mg per tablet Take 1 tablet by mouth 4 (four) times daily as needed. 06/21/2023 5 Xarelto 20 mg tablet SMARTSI Tablet(s) By Mouth Every Evening 04/25/2023 5 documented as of this encounter Plan of Treatment Upcoming Encounters Date Type Department Care Team (Late st Contact Info) Description 01/27/2025 12:30 PM EDT Office Visit [facility] - [address] [phone] Raúl Suh MD [address] [place] [phone] documented as of this encounter Procedures Procedure Name Priority Date/Time Associated Diagnosis Comments XR CHEST 2 VIEWS Routine 11/21/2024 10:3 3 AM EDT Full Thickness tear of right supraspinatus tendon Osteoarthritis of glenohumeral joint, right Pre-op testing documented in this encounter Results * XR chest 2 views (11/21/2024 10:33 [...] Images reviewed, interpreted, and dictated by Dr. Eljiah Russo. Transcribed by Jazmyne Prabhakar us Raúl Suh MD [facility] DIAGNOSTIC IMAGING ORDERA BLES Final Result documented in this encounter Visit Diagnoses Diagnosis Full Thickness tear of right supraspinatus tendon Osteoarthritis of glenohumeral joint, right Pre-op testing Unspecified pre-operative examination documented in this encounter Care Teams Paleologist Relationship Specialty Start Date End Date Abhishek Griggs MD [address] [place] [address] PCP - General Adolescent Medicine 10/25/24 Dominic Oliva PA-C [address] [place] [address] Physician Audit Associate 10/01/24 documented as of this encounter
--- OUTSIDE RECORDS SUMMARY | 2024-11-21 10:18 | XMS_ITS | Encounter Summary ---
Author Organization [email or web address] ([place], [place], [place], [place]) Address [address] [place] [address] Care Team Providers Care Instrument And Controls Technician Name Role Phone Dominic Oliva PA-C Unavailable [phone] Abhishek Griggs MD Primary Care Provider + [phone] Reason for Referral * Other (Routine) - New Request Specialty Diagnoses / Procedures Referred By Howie rondon Referred To Contact Diagnoses Tear of right supraspinatus tendon Osteoarthritis of glenohumeral joint, right Pre-op testing Procedures ECG 12 lead Raúl Suh MD [address] [place] [address] Phone: tel: fax: Referral ID Status Reason Start Date Expiration Date V isits Requested Visits Authorized [id number] New Request 11/21/2024 11/21/2025 1 1 Reason for Visit * Other (Routine) - New Request Specialty Diagnoses / Procedures Referred By Contnehal t Referred To Contact Diagnoses Tear of right supraspinatus tendon Osteoarthritis of glenohumeral joint, right Pre-op testing Procedures ECG 12 lead Raúl Suh MD [address] [place] [address] Phone: tel: fax: Referral ID Status Reason Start Date Expiration Date V isits Requested Visits Authorized [id number] New Request 11/21/2024 11/21/2025 1 1 Encounter Details Date Type Department Care Team (Late st Contact Info) Description 11/21/2024 10:18 AM EDT - 11/21/2024 11:59 PM EDT Hospital Encounter [facility] [address] [place] [address] Raúl Suh MD [address] [place] [address] Full Thickness tear of right supraspinatus tendon; [...] Date Francis rded Speak language other than Kazakh at home Not on file 06/09/2023 Want [...] daily for 7 days. 14 capsule 12/17/2024 5 HYDROcodone-stephanie taminophen (NORCO) 10-325 mg per tablet [...] Description 01/27/2025 12:30 PM EDT Office Visit [facility] - [address] [phone] Raúl Suh MD [address] [place] [address] documented as of this encounter Procedures Procedure Name Priority Date/Time Associated Diagnosis Comments FS_MODEL_IP_ECG 12-LEAD Routine 11/21/2024 10:34 AM EDT Full Thickness tear of right supraspinatus tendon Osteoarthritis of glenohumeral joint, right Pre-op testing documented in this encounter Results * ECG 12 lead (11/21/2024 10:34 AM EDT) VENTRICULAR RATE EKG/MIN 76 BPM GE MUSE ATRIAL RATE (MCT) 76 BPM GE MUSE UT Interval 156 ms GE MUSE QRS-INTERVAL (MSEC) 92 ms GE MUSE QT Interval 396 ms GE MUSE QTC Interval 445 ms GE MUSE P [place] 40 degrees GE MUSE R AXIS (MCT) 56 degrees GE MUSE T Wave [place] 55 degrees GE MUSE [place] Diagnosis Normal sinus rhythm Nonspecific ST and T wave abnormality Abnormal ECG No previous ECGs available Confirmed by Gemini MITCHELL, MICHELLE ([id number]) on 11/21/2024 11:56:15 AM GE MUSE 11/21/2024 10:3 4 AM EDT 11/21/2024 11:56 AM EDT us Raúl Suh MD ECG ORDERABLES Final Result GE MUSE documented in this encounter Visit Diagnoses Diagnosis Full Thickness tear of right supraspinatus tendon Osteoarthritis of glenohumeral joint, right Pre-op testing Unspecified pre-operative examination documented in this encounter Additional Health Concerns Infection Onset Date Last Indicated Resolved Time MRSA (C) 11/21/2024 11/21/2024 documented as of this encounter Care Teams Instrument And Controls Technician Relationship Specialty Start Date End Date Abhishek Griggs MD [address] [place] [address] PCP - General Adolescent Medicine 10/25/24 Dominic Oliva PA-C [address] [place] [address] Physician Brass Chaser 10/01/24 documented as of this encounter
--- OUTSIDE RECORDS SUMMARY | 2024-11-21 10:30 | XMS_ITS | Encounter Summary ---
Author Organization [employer] ([place], [place], [place], [place]) Address [address] [place] [address] Care Team Providers Care Sonar Watchstander Name Role Phone Dominic Oliva PA-C Unavailable [phone] Abhishek Griggs MD Primary Care Provider + [phone] Encounter Details Date Type Department Care Team (Late st Contact Info) Description 11/21/2024 10:30 AM EDT Lab Patient Walk-In [facility] [address] [place] [phone] Raúl Suh MD [address] [place], [place] [id number] Full Thickness tear of right supraspinatus tendon; Osteoarthritis of glenohumeral joint, right; Pre-op testing Social History Tobacco Use Types [...] Date Francis rded Speak language other than Namibian at home Not on file 06/09/2023 Want [...] Description 01/27/2025 12:30 PM EDT Office Visit [facility] - [address] [phone] Raúl Suh MD [address] [place] [address] documented as of this encounter Procedures Procedure Name Priority Date/Time Associated Diagnosis Comments CBC W/ AUTO DIFF Routine 11/21/2024 10:3 1 AM EDT Full Thickness tear of right supraspinatus tendon Osteoarthritis of glenohumeral joint, right Pre-op testing MANUAL DIFFERENTIAL Routine 11/21/2024 1 0:31 AM EDT Full Thickness tear of right supraspinatus tendon Osteoarthritis of glenohumeral joint, right Pre-op testing MRSA SCREEN Routine 11/21/2024 10:31 AM EDT Full Thickness tear of right supraspinatus tendon Osteoarthritis of glenohumeral joint, right Pre-op testing COMPREHENSIVE METABOLIC PANEL Routine 11/21/2024 10:31 AM EDT Full Thickness tear of right supraspinatus tendon Osteoarthritis of glenohumeral joint, right Pre-op testing documented in this encounter Results * (ABNORMAL) Manual Differential (11/21/2024 10:31 AM EDT) Total Counted 100 11/21/2024 10:56 AM EDT [facility] % Neutros (manual) 39 15 - 67 % 11/21/2024 10:56 AM EDT [facility] % Bands (manual) 0(L) 2 - 21 % 11/21/2024 10:56 AM EDT [facility] % Lymphs (manual) 32 10 - 50 % 11/21/2024 10:56 AM EDT [facility] % Monos (manual) 9 2 - 10 % 11/21/2024 10:56 AM EDT [facility] % Eos (manual) 20(H) 0 - 7 % 11/21/2024 10:56 AM EDT [facility] Platelet Estimate Adequate Adequate 11/21/2024 10:56 AM EDT [facility] ANC# 3.47 K/ L 11/21/2024 10:56 AM EDT [facility] Blood Venipuncture / Unknown 11/21/2024 10:31 AM EDT 11/21/2024 10:32 AM EDT us Raúl Suh MD LAB BLOOD ORDERABLES Final Re sult [facility] [address] [phone] * (ABNORMAL) MRSA Screen (11/21/2024 10:31 AM EDT) [facility] MRSA by PCR [facility] MRSA Detected by PCR(A) MRSA Not Detected by PCR DEVICE ID9 11/21/2024 4:20 PM EDT [facility] Nasal BOTH ANTERIOR NARES / Unknown 11/21/2024 10:31 AM EDT 11/21/2024 10:32 AM EDT us Raúl Suh MD MICROBIOLOGY - GENERAL ORDERA BLES Final Result [facility] [address] [phone] * (ABNORMAL) Comprehensive metabolic panel (11/21/2024 10:31 AM EDT) Pathologist [facility] Sodium 137 136 - 145 meq/L 11/21/2024 11:13 AM EDT [facility] Potassium 3.9 3.5 - 5.1 meq/L 11/21/2024 11:13 AM EDT [facility] Chloride 103 98 - 107 meq/L 11/21/2024 11:13 AM EDT [facility] CO2 28 21 - 32 meq/L 11/21/2024 11:13 AM EDT [facility] Calcium 9.9 8.5 - 10.1 mg/dL 11/21/2024 11:13 AM EDT [facility] Glucose 138(H) 70 - 99 mg/dL 11/21/2024 11:13 AM EDT [facility] BUN 17 7 - 18 mg/dL 11/21/2024 11:13 AM EDT [facility] Creatinine 0.91 0.55 - 1.10 mg/dL 11/21/2024 11:13 AM EDT [facility] BUN/Creatinine 19 11/21/2024 11:13 AM EDT [facility] Albumin 3.9 3.4 - 5.0 g/dL 11/21/2024 11:13 AM EDT [facility] Alkaline Phosphatase 96 46 - 116 U/L 11/21/2024 11:13 AM EDT [facility] ALT 13 12 - 78 U/L 11/21/2024 11:13 AM EDT [facility] AST 20 15 - 37 U/L 11/21/2024 11:13 AM EDT [facility] Total Bilirubin 0.6 0.2 - 1.0 mg/dL 11/21/2024 11:13 AM EDT [facility] Protein, Total 8.2 6.4 - 8.2 gm/dL 11/21/2024 11:13 AM EDT [facility] Anion Gap 10(L) 11 - 11/21/2024 11:13 AM EDT [facility] A/G Ratio 0.9 11/21/2024 11:13 AM EDT [facility] Globulin 4.3 g/dL 11/21/2024 11:13 AM EDT [facility] Osmolality Calc 277.6 mOsm/kg 11:13 AM EDT [facility] eGFR (mL/min/1.73m2) >60 >=60 mL/min/1.7 3m2 11/21/2024 11:13 AM EDT [facility] Comment:ESTIMATED GFR IS NOT ACCURATE CREATININE CLEARANCE IN PREDICTING GLOMERULAR FILTRATION RATE. ESTIMATED GFR IS NOT APPLICABLE FOR DIALYSIS PATIENTS. Blood Venipuncture / Unknown 11/21/2024 10:31 AM EDT 11/21/2024 10:32 AM EDT us Raúl Suh MD LAB BLOOD ORDERABLES Final Re sult [facility] [address] [place], [place] [address] [phone] * (ABNORMAL) CBC with automated diff (11/21/2024 10:31 AM EDT) WBC 8.9 4.8 - 10.8 K/ L 11/21/2024 10:56 AM EDT [facility] RBC 5.06 3.50 - 5.20 M/ L 11/21/2024 10:56 AM EDT [facility] Hemoglobin 14.4 11.7 - 15.8 GM/DL 11/21/2024 10:56 AM EDT [facility] Hematocrit 43.3 35.0 - 47.0 % 11/21/2024 10:56 AM EDT [facility] MCV 86 81 - 101 fL 11/21/2024 10:56 AM EDT [facility] MCH 28.5 27.0 - 34.0 pg 11/21/2024 10:56 AM EDT [facility] MCHC 33.3 32.0 - 36.0 GM/DL 11/21/2024 10:56 AM EDT [facility] RDW 13.9 11.5 - 14.5 % 11/21/2024 10:56 AM EDT [facility] Platelets 256 150 - 400 K/CU MM 11/21/2024 10:56 AM EDT [facility] MPV 8.6(L) 9.4 - 12.4 fL 11/21/2024 10:56 AM EDT [facility] Nucleated Red Blood Cell 0.0 0 - 0.2 % 11/21/2024 10:56 AM EDT [facility] NRBC Absolute <0.01 0 - 0.012 K/ul 11/21/2024 10:56 AM EDT [facility] Blood Venipuncture / Unknown 11/21/2024 10:31 AM EDT 11/21/2024 10:32 AM EDT Narrative [facility] - 11/21/2024 10:56 AM EDT When [...] MD LAB BLOOD ORDERABLES Final Re sult [facility] [address] [phone] documented in this encounter Visit Diagnoses Diagnosis Full Thickness tear of right supraspinatus tendon Osteoarthritis of glenohumeral joint, right Pre-op testing Unspecified pre-operative examination documented in this encounter Care Teams Sonar Watchstander Relationship Specialty Start Date End Date Abhishek Griggs MD [address] [place] [address] PCP - General Adolescent Medicine 10/25/24 Dominic Oliva PA-C [address] [place] [address] 10/01/24 documented as of this encounter
--- OUTSIDE RECORDS SUMMARY | 2024-12-17 08:29 | XMS_ITS | Encounter Summary ---
Author Organization [employer] ([place], [place], [place], [place]) Address [address] [place] [address] Care Team Providers Care Hairspring Truer Name Role Phone Dominic Oliva PA-C Unavailable [phone] Abhishek Griggs MD Primary Care Provider [phone] Reason for Visit * Auth/Cert (Routine) Specialty Diagnoses / Procedures Referred By Howie rondon Referred To Contact Diagnoses Rotator cuff arthropathy of right shoulder Rotator cuff arthropathy, right Procedures [place] ARTHROPLASTY GLENOHUMERAL JOINT TOTAL SHOULDER ARTHROPLASTY, SHOULDER, TOTAL, REVERSE [facility] Operating Room [address] [place] [phone] Phone: tel: fax: [facility] Operating Room [address] [place] [phone] Phone: tel: fax: Referral ID Status Reason Start Date Expiration Date Visits Re quested Visits Authorized [id number] 1 1 Encounter Details Date Type Department Care Team (Late st Contact Info) Description 12/17/2024 8:29 AM EDT - 12/17/2024 3:42 PM EDT Hospital Encounter [facility] Operating Room [address] [place] [phone] Ralú Suh MD [address] [place] [id number] Rotator cuff arthropathy of right shoulder Discharge Disposition: Home or Self Care Social [...] Date Francis rded Speak language other than Trinidadian at home Not on file 06/09/2023 Want [...] Sign Reading Time Taken Comments Blood Pressure 114/69 12/17/2024 3:00 PM EDT Pulse 69 12/17/2024 3:00 PM EDT Temperature 36.4 C (97.5 F) 12/17/2024 1:14 PM EDT Respiratory Rate 16 12/17/2024 3:00 PM EDT Oxygen Saturation 93% 12/17/2024 3:00 PM EDT Inhaled Oxygen Concentration 100% 12/17/2024 1 2:40 PM EDT Weight 104.3 kg (230 lb) 12/10/2024 3:00 PM EDT stated Height - - Body Mass Index 34.97 11/21/2024 9:03 AM EDT documented in this encounter Discharge Summaries * Sriram Garcia MD - 12/17/2024 2:31 PM EDT Patient Name: Neeru Samano : 1965 Date of Admission: 12/17/2024 Date of Discharge: 12/17/2024 Primary Care Physician: Abhishek Griggs MD Consultations: Discharge Diagnoses: Rotator cuff arthropathy of right shoulder Reason for Admission: R shoulder surgery Hospital Course: Neeru Samano is a 59 y.o. female . Patient presents today to discuss surgical options for the Right Shoulder. Pre-Procedure Diagnosis: Right Rotator cuff arthropathy Post-Procedure Diagnosis: Same Procedure Performed: Reverse total shoulder arthroplasty right shoulder Patient tolerated procedure well, patient was evaluated by physical therapy, patient was counseled to follow up with PCP as OP and orthopedics Studies Performed: Procedures Performed: Discharge Medications: Your medication list START taking these medications Instructions Comments Quantity Refills cefadroxil 500 MG capsule Commonly known as: DURICEF Take 1 capsule (500 mg total) by mouth 2 (two) times daily for 7 days. 14 capsule 0 celecoxib 200 MG capsule Commonly known as: CeleBREX Take 1 capsule (200 mg total) by mouth daily for 30 days. 30 capsule 0 HYDROcodone-acetaminophen 10-325 mg per tablet Commonly known as: NORCO Replaces: HYDROcodone-acetaminophen 7.5-325 mg per tablet Take 1 tablet by mouth every 6 (six) hours as needed for pain for up to 7 days. Max Daily Amount: 4tablets 28 tablet 0 traMADoL 50 mg tablet Commonly known as: ULTRAM Take 1 tablet (50 mg total) by mouth 2 (two) times daily for 7 days. Max Daily Amount: 100 mg 14 tablet 0 CHANGE how you take these medications Instructions Comments Quantity Refills Xarelto 20 mg tablet Generic drug: rivaroxaban What changed: See the new instructions. Take 0.5 tablets (10 mg total) by mouth daily with breakfast for 14 days. 7 tablet 0 CONTINUE taking these medications Instructions Comments Quantity Refills aspirin 81 MG EC tablet Take 1 tablet (81 mg total) by mouth daily. 0 bisoprolol 5 MG tablet Commonly known as: ZEBETA Take 1 tablet (5 mg total) by mouth daily. 0 buPROPion XL 150 MG 24 hr tablet Commonly known as: WELLBUTRIN XL Take 1 tablet (150 mg total) by mouth every morning. 0 citalopram 40 MG tablet Commonly known as: CeleXA Take 1 tablet (40 mg total) by mouth daily. 0 dilTIAZem 120 MG 24 hr capsule Commonly known as: CARDIZEM CD Take 1 capsule (120 mg total) by mouth daily. 0 EnbreL SureClick 50 mg/mL (1 mL) Pnij Generic drug: etanercept Inject 1 Syringe subcutaneously once a week. 0 esomeprazole 40 MG capsule Commonly known as: NexIUM Take 1 capsule (40 mg total) by mouth daily. 0 gabapentin 400 MG capsule Commonly known as: NEURONTIN Take 2 capsules (800 mg total) by mouth 2 (two) times daily. 0 hydroCHLOROthiazide 12.5 MG tablet Commonly known as: HYDRODIURIL Take 1 tablet (12.5 mg total) by mouth daily. 0 Jardiance 25 mg tablet Generic drug: empagliflozin Take 1 tablet (25 mg total) by mouth every morning. 0 leflunomide 20 MG tablet Commonly known as: ARAVA Take 1 tablet (20 mg total) by mouth daily. 0 losartan 50 MG tablet Commonly known as: COZAAR Take 1 tablet (50 mg total) by mouth daily. 0 Repatha Syringe 140 mg/mL syringe Generic drug: evolocumab Inject 140 mg under the skin every 14 (fourteen) days. 0 Trulicity 4.5 mg/0.5 mL syringe Generic drug: dulaglutide Inject subcutaneously. 0 STOP taking these medications HYDROcodone-acetaminophen 7.5-325 mg per tablet Commonly known as: NORCO Replaced by: HYDROcodone-acetaminophen 10-325 mg per tablet Where to Get Your Medications These medications were sent to [facility] [address] [phone] cefadroxil 500 MG capsule celecoxib 200 MG capsule HYDROcodone-acetaminophen 10-325 mg per tablet traMADoL 50 mg tablet Xarelto 20 mg tablet Physical Exam Constitutional: alert awake HENT: Head: Normocephalic and atraumatic. Eyes: Conjunctiva/sclera: Conjunctivae normal. Cardiovascular: Rate and Rhythm: Normal rate and regular rhythm. Normal heart sounds. No murmur heard. Pulmonary: Normal breath sounds. No wheezing or rhonchi. Abdominal: Bowel sounds are normal. Abdomen is soft. There is no abdominal tenderness. There is no guarding. Musculoskeletal: General: No swelling, tenderness or deformity. R shoulder is covered with dressing' Right lower leg: No edema. Left lower leg: No edema. Neurological: General: No focal deficit noted Mental Status: alert and oriented to person, place, and time. Cranial Nerves: No cranial nerve deficit. Motor: No weakness Discharge Instructions Discharge Diet: Discharge Activity: Discharge Follow UP: Time Spent: 34 Electronically signed by Sriram Garcia MD, 12/17/24, 2:31 PM EDT documented in this encounter Discharge Instructions * Discharge Instructions* Sindhu Ward RN - 12/17/2024 9:05 AM EDT Sedative Medications given during the procedure can slow your reaction time and coordination for many hours. Please follow these instructions: - DO NOT conduct important business or sign legal documents on the date of the procedure. - DO NOT resume normal activities until tomorrow. - DO NOT drive a car or operate any machinery or power tools for 24 hours. - DO NOT drink alcohol or take nerve or sleeping medication. These will add to the effects of the sedation. - Regular diet after you tolerate liquids unless instructed otherwise by the physician. - Someone needs to be available to assist you until tomorrow. -Polar care: use continuously for the first 48 hours, then 30 minutes three times a day -Ultra Sling. Non weight bearing on operative side. -May shower on post op day 3. No soaking and no scrubbing. No lotions, topicals, or scented creams. -Carefully remove post operative dressing. Leave Liquiband intact. If drainage present apply Covaderm over incision/Liquiband. -Keep sling in place until instructed by Dr. Suh. -Take pain medication as prescribed. Do NOT drive if taking prescribed pain medications. -Phone call with Dr. Suh anytime from - tomorrow, December 18, 2024. Call physician if any of the following occur: -fever of 101 degrees or higher -redness, swelling, or pus drainage from site -severe pain -discoloration of the surgical limb documented in this encounter Medications at Time [...] for 14 days. 7 tablet 12/17/2024 5 documented as of this encounter Progress Notes * Cem Hamilton - 12/17/2024 2:42 PM EDT Images from the original note were not included. Inpatient Physical Therapy Initial Evaluation Patient Name: Neeru Samano Date of : 1965 Date of Evaluation: 12/17/24 In Time 1403 Out Time 1418 Session Duration 15 minutes Time spent for nursing collaboration, chart and systems review, and clinical reasoning. 10 minutes Total Time 25 minutes Pt is a 59 y.o. female admitted on 12/17/2024 with Rotator cuff arthropathy of right shoulder [M12.811]. Past Medical History: Diagnosis Date Arthritis Atrial fibrillation (HCC) 2015 Carpal tunnel syndrome 2-25 Diabetes (HCC) Fibromyalgia Fibromyositis 2018 Hypertension Low back pain 1994 PONV (postoperative nausea and vomiting) suggest scopalamine patch prior to surgery Rheumatoid arthritis (HCC) 2016 Sleep apnea bipap Past Surgical History: Procedure Laterality Date CHOLECYSTECTOMY FOOT SURGERY 2019 Ankle fusion NECK SURGERY cervical fusion RELEASE,CARPAL TUNNEL Left 10/25/2024 Procedure: (LT RELEASE, CARPAL TUNNEL); Surgeon: Anshul Banks MD; Location: [facility]; Service: Neurological Surgery; Laterality: Left; SHOULDER SURGERY Right SPINE SURGERY 1993 Lumbar fusion SPINE SURGERY 1997 Lumbar bone cage General Visit Type: Initial Evaluation Approved By: Nursing Patient Disposition Upon Entry: Supine in bed, Call Light/Pull Cord in reach, All needs met and within reach, Nursing aware/notified, HOB >30 degrees Patient Verified By: Name and Date of Co-treated by: OT Assisted by: Physical Therapist, Wood Engraver Precautions Weight-Bearing Status: NWB R UE Precautions: Fall risk Isolation Precautions: Standard Lines, tubes, drains, airway: peripheral IV Bracing: Arm Sling Subjective Subjective: Patient agreeable to physical therapy evaluation and treatment. Pain Pt reported no pain at this time. RN notified. Cognition WFL Home Living Pt reports at baseline, she is independent with mobility and ADL's. She has a rolling walker and cane at home. She lives with her spouse and daughter in a 1 level home with 4 stairs to enter with a right side railing. No hx of falls. Objective Vitals Vitals: 12/17/24 1425 BP: 117/72 Pulse: 76 Resp: 18 Temp: SpO2: 93% SpO2 88% and above during ambulation on room air SpO2 93% supine in bed following ambulation on room air RN aware and notified. Basic Strength Assessment L UE WNL for functional mobility R UE NWB in sling Range of Motion Assessment Decreased R shoulder ROM postop Sensation Pt reports numb sensation to R shoulder postop. Left foot and hand chronic numbness. Coordination Coordination is intact and within normal limits. Functional Mobility Bed Mobility Supine to Sit: Contact guard assist, 1-person assist, HOB elevated, L handheld assist, R UE NWB in sling Sit to Supine: Contact guard assist, 1-person assist, HOB elevated, L handheld assist, R UE NWB in sling Transfers Sit to Stand: Contact guard assist, 1-person assist, gait belt used, L handheld assist, R UE NWB insling Stand to Sit: Contact guard assist, 1-person assist, gait belt used, L handheld assist, R UE NWB insling Gait Pt ambulated 150' using L hand held assist as needed with contact guard assist, 1 person assist with gait belt for safety. R UE NWB in sling. Stair Management Pt negotiated up/down [address] stairs [address] ways with left arm on right side railing with contact guard to minimal assistance, 1 person assist with gait belt. R UE NWB in sling Wheelchair Mobility Not assessed, patient ambulatory. AM-PAC Basic Mobility Inpatient Short Form How much difficulty does the patient currently have: Turning over in bed (including adjusting bedclothes, sheets, and blankets)? (3) A little (can do the activity without assistive devices or help from another person, but requires A LITTLE more time and effort) Sitting down on and standing up from a chair with arms (e.g., wheelchair, bedside commode, etc.)? (3) A little (can do the activity without assistive devices or help from another person, but requiresA LITTLE more time and effort) Moving from lying on back to sitting on side of bed? (3) A little (can do the activity without assistive devices or help from another person, but requires A LITTLE more time and effort) How much help from another person does the patient currently need: Moving to and from a bed to a chair (including a wheelchair)? (3) A little Need to walk in hospital room? (3) A little Climbing 3-5 steps with a railing? (3) A little Score Raw score=18 Raw score=18 t-Scale score=43.63 Standard error=3.20 CMS 0-100%=46.58% MDC=4.72 A raw score of >= 16 is significantly associated with increased odds of discharge to home in addition to consideration made for the patient's cognition and social determinants of health. Balance Sitting balance contact guard assist, Standing balance contact guard assist Activity Tolerance Patient limited with activity/intervention due to weakness and numbness. Treatment Gait training - see above Assessment Pt seen today for a mobility evaluation s/p R rTSA on 12/17/24. Pt able to stand, ambulate 150' withL UE handheld support, as needed. R UE NWB in sling. Pt required contact guard assistance of 1 person with ambulation and negotiating up/down 4 steps. SpO2 88% and above during ambulation on room air. RN aware and notified. Pt will benefit from skilled PT to improve her strength and independence with functional mobility. Problems: Decreased functional mobility, Decreased gait tolerance, Decreased strength, Decreased activity tolerance, Impaired standing balance, Impaired dynamic balance, Gait impairment, Restricted ROM, Pain , Sensory deficits Rehab potential: Good for stated goals Plan Treatment Plan: Therapeutic Exercise, Therapeutic Activity, Gait Training, Neuromuscular Re-education, Transfer Training, Balance Training, Stair Training, Strengthening, Home Exercise Program, ROM, Wheelchair Management/Mobility Training, Pain Management, Patient/Family/Caregiver Education, DME Rec ommendations, Co-Treat with OT PT Frequency/Duration: 1-2x/day for 2 weeks Recommendations Discharge recommendations: Discharge home/prior living situation. Patient would benefit from continued therapy services. DME recommendations: Patient has no DME/adaptive equipment discharge needs at this time. Goals Supine to/from sit: Pt will complete supine<>sit Sima Sit to/from stand: Pt will complete sit<>stand SBA Gait: Pt will ambulate 150' SBA Stair Negotiation: Pt will negotiate up/down 4 stairs using rail SBA while maintaining R UE NWB Other Goal #1: Pt will be independent with HEP Target Date: 12/31/2024 Goals were discussed with patient and family Education Patient/Visitors educated on safety, use of call button, role of physical therapy, plan of care, therapeutic exercise, HEP packet, ambulation, transfers, bed mobility, ROM/positioning, stair negotiation, home safety, need for assistance and risk for falls and following, they were able to verbalize u nderstanding. No further questions or concerns stated. Patient Disposition Upon Leaving Supine in bed, Call Light/Pull Cord in reach, All needs met and within reach, Nursing aware/notified, HOB >30 degrees, Family in room, SpO2 93% on RA If this patient discharges prior to next therapy session, this note serves as the patient's discharge summary. . Cosigned by Harper Ochoa PT at 12/17/2024 3:15 PM EDT Associated attestation - Harper Ochoa PT - 12/17/2024 2:15 PM CDT I evaluated this patient. reviewed the notes, assessments, and/or procedures performed by Cem Hamilton, I concur with her/his documentation of Neeru Aliya West. * Lorraine Flower, OTR - 12/17/2024 2:32 PM EDT Images from the original note were not included. Inpatient Occupational Therapy Initial Evaluation Patient Name: Neeru Samano Date of : 1965 Date of Evaluation: 12/17/24 Start Time: 1352 Stop Time: 1422 Session Duration: 30 minutes Total time: 40 minutes spent, including 10 minutes for nursing collaboration, thorough chart and systems review, and clinical reasoning. This patient is a 59 y.o. female admitted on 12/17/2024 with Rotator cuff arthropathy of right shoulder [M12.811]. Patient had Reverse R TSA on 12/17/2024 Past Medical History: Diagnosis Date Arthritis Atrial fibrillation (HCC) 2015 Carpal tunnel syndrome 2-25 Diabetes ([facility]) Fibromyalgia Fibromyositis 2018 Hypertension Low back pain 1993 PONV (postoperative nausea and vomiting) suggest scopalamine patch prior to surgery Rheumatoid arthritis ([facility]) 2016 Sleep apnea bipap Past Surgical History: Procedure Laterality Date CHOLECYSTECTOMY FOOT SURGERY 2018 Ankle fusion NECK SURGERY cervical fusion RELEASE,CARPAL TUNNEL Left 10/25/2024 Procedure: (LT RELEASE, CARPAL TUNNEL); Surgeon: Anshul Banks MD; Location: [facility]; Service: Neurological Surgery; Laterality: Left; SHOULDER SURGERY Right SPINE SURGERY 1993 Lumbar fusion SPINE SURGERY 1997 Lumbar bone cage General Visit Type: Initial Evaluation Approved by: Nursing Patient disposition upon entry: Patient verified by name, Patient verified by date of , Supinein bed, Visitor/family present, All needs met and within reach, Call light/pull cord in reach, Headof bed >30 degrees, Nursing aware/notified Co-treated by: PT Assisted by: PT student, rehab consultant Precautions Weightbearing status: Non-weight bearing (NWB), RUE Precautions: Fall risk Isolation precautions: Standard LDA/Brace/Protective equipment: Lines, drains, and airways: blood pressure cuff, peripheral IV, pulse oximeter , telemetry Brace/protective equipment: UE sling and swath , RUE Subjective Subjective: Pt agreeable , spouse and daugthter present Pain No-patient reports 0/10 pain Cognition Cognition: Overall cognitive status: WFL Orientation level: Oriented x4 Vision/Hearing History Visual/Hearing History: WFL Home Living Lives with: Spouse, Daughter Receives help from: Does not receive help at baseline, but has help available at home if needed Type of home: House Home layout: One level, 4 steps to enter with R side railing Bathroom layout: Tub/shower unit Home equipment available: cane, straight, walker, rolling Functional Mobility PLOF: Patient reports being complete independent with all functional mobility prior to onset. Activities of Daily Living PLOF: Patient reports being complete independent with all ADL's prior toonset. Objective Vitals No signs or symptoms of distress reported or observed throughout session; Patient cleared to trial on room air, SPO2 >90% with brief incidences of decreasing to 88-89%, RN notified and aware. Range of Motion Assessment Patient's ROM is within functional limits in Left upper extremity, ROM not assessed in Right upper extremity Strength Assessment Patient's strength is within functional limits in Left upper extremity; Non- weight bearing Right upper extremity, strength not assessed Coordination/Sensation Coordination is intact and within normal limits. Sensation: Light touch:Deficits noted, in RUE post op; per patient decreased sensation in L foot and L hand at baseline Bed Mobility Supine to sit: Standby assist Sit to supine: Sitting edge of bed at end of the session, RN and family present in room UE sling and swath donned and adjusted prior to transfers and mobility Transfers Sit to stand:Contact guard, 1 person assist, Gait belt used Stand to sit:Contact guard, 1 person assist, Gait belt used Functional mobility:Contact guard, 1 person assist, Gait belt used, to ambulate ~150 feet in the hallway, wheelchair follow for safety Refer to PT note for more information on stair training. ADLs Feeding:Independent Patient is a feeder: No Grooming:RAFAEL-Unable to assess Bathing:RAFAEL-Unable to assess Upper body dressing: Maximal assistance to loren/doff UE sling/swath and polar care and to loren shirt, Sitting edge of bed Lower body dressing:Moderate Assistance, Maximal Assistance, to loren shorts Toileting: RAFAEL - unable to assess Outcome Measures [facility] Daily Living Functional Assessment How much help from another person does the patient currently need: Putting on and taking off regular lower body clothing? 2 Bathing, including washing, rinsing, and drying? 3 Toileting, including using toilet, bedpan or urinal? 3 Putting on and taking off regular upper body clothing? 2 Taking care of personal grooming such as brushing teeth? 3 Eating meals? 3 Raw Score 16/24 Total Score 53.32% impaired 1=Total/Unable (Total assist/Dependent) 2=A lot (Maximal/Moderate assist) 3=A little (Minimal/Contact guard/Supervision/Setup) 4=None (Modified independent/Independent) Raw Score Approximate Degree of Functional Impairment 6 100% 7 92.44% 8 85.69% 9 79.59% 10 74.70% 11 70.42% 12 66.57% 13 63.03% 14 59.67% 15 56.46% 16 53.32% 17 50.11% 18 46.65% 19 42.80% 20 38.32% 21 32.79% 22 25.80% 23 15.86% 24 0% A raw score of >= 19 is significantly associated with increased odds of discharge to home in addition to consideration made for the patient's cognition and social determinants of health. Balance Static sitting balance:Normal: Patient able to maintain steady balance without handheld support Dynamic sitting balance:Normal: Patient accepts maximal challenge and shift weight easily within full range in all directions Static standing balance:Good: Patient able to maintain balance without handheld support; limited postural sway Dynamic standing balance:Fair: Patient accepts minimal challenge; able to maintain balance while turning head/trunk Activity Tolerance Patient limited with activity/intervention due to weakness Treatment Patient and family educated on ADLs, UB dressing tech, functional transfers and mobility, EC/WS, DME/AE recommendations, NWB, UE sling, [facility] care, home program; shoulder pendulums, elbow/wrist AROM exercises and safety. Patient and family with verbal understanding of all information on UE exercises/pendulums. Educational handout provided to patient on UE exercises. Assessment Assessment Patient is a 59 year old female who was evaluated for occupational therapy services post op ReverseTSA. Patient is non-weight bearing in right upper extremity with decreased sensation. Patient able to ambulate ~150 feet in hallway with contact guard assistance and performed upper and lower body mary ssing with moderate to maximal assistance. Gait belt used with transfers and ambulation. Patient demonstrates a decrease in independence with ADLs and ADL transfers. Patient will benefit from skilledoccupational therapy services to increase overall strength, balance, endurance, activity tolerance and safety required for increased independence with self care tasks and transfers/mobility in home. Problems: Decreased balance , Difficulty with ADLs, Fall risk, Impaired endurance, Impaired functional mobility, Impaired strength, Impaired UE ROM, Impaired, UE functional use Rehab potential: Good for stated goals Plan Recommendations Discharge recommendations: Discharge home/prior living situation. Patient would benefit from continued therapy services. DME recommendations: Patient would benefit from shower chair at discharge. Treatment Plan: Adaptive equipment training, ADL training, DME recommendations , Energy conservation instruction, Functional mobility/transfer training, Home modification recommendations , Patient/family/caregiver education, Precaution education/training, Safety training, Strengthening, ROM OT Frequency/Duration: 5-6 days/week x 2 weeks Goals Grooming: grooming, standing with contact guard assist Met - Upper body dressing: Patient will be educated on UB dressing tech (top, polar care and UE sling) with verbal understanding prior to discharge. Lower body dressing: donning and doffing lower body clothing with minimal assistance. Toileting: toileting with standby assist. Functional transfers: ambulatory transfer with standby assist with contact guard assist. Met - HEP: Patient will be educated on ADLs, UB dressing tech, functional transfers and mobility, EC/WS, DME/AE recommendations, NWB, UE sling, polar care, home program; shoulder pendulums, elbow/wrist AROM exercises and safety prior to discharge. Target Date: 12/31/2024 Goals were discussed with patient Education Patient/Visitors educated on safety, use of call light, role of occupational therapy, patient's plan of care, ADLs, functional mobility, UB dressing tech, functional transfers and mobility, EC/WS, DME/AE recommendations, NWB, UE sling, polar care, home program; shoulder pendulums, elbow/wrist AROM exercises and safety and following, they were able to verbalize understanding. Patient Disposition Upon Leaving Patient disposition upon leaving: Sitting edge of bed, Visitor/family present, All needs met and within reach, Call light/pull cord in reach, Head of bed >30 degrees, Nursing aware/notified, RN atbedside If this patient discharges prior to next therapy session, this note serves as the patient's discharge summary. Electronically signed by Lorraine Flower OTR - 12/17/2024 - 2:32 PM EDT * Magalie Mandujano RN - 12/17/2024 9:01 AM EDT Bipap at home documented in this encounter H&P Notes * Raúl Suh MD - 12/17/2024 9:49 AM EDT I have reviewed the above History & Physical and I have examined the patient. No changes have occurred since the above History & Physical. Raúl Suh MD Source Note - Raúl Suh MD - 12/17/2024 6:32 AM EDT Images from the original note were not included. NAME: Neeru Samano CSN: [id number] : 1965 PCP: Abhishek Griggs MD REASON FOR VISIT Right Shoulder Is this Worker's Comp? No HPI Neeru [...] hydrocodone PRN. Patient rates her pain a 6/10 inthe office. Interval HPI: 10/22/24 with Dominic Oliva [...] Allergen Reactions Penicillins Rash Other reaction(s): Hives Crestor [Rosuvastatin] Nausea And Vomiting Lipitor [Atorvastatin] Nausea And Vomiting PAST MEDICAL/SURGICAL HISTORY Past Medical History: Diagnosis Date Arthritis Atrial fibrillation (HCC) 2015 Carpal tunnel syndrome 2-25 Diabetes (HCC) Fibromyalgia Fibromyositis 2018 Hypertension Low back pain 1994 PONV (postoperative nausea and vomiting) suggest scopalamine patch prior to surgery Rheumatoid arthritis (HCC) 2016 Sleep apnea bipap Past Surgical History: Procedure Laterality Date CHOLECYSTECTOMY FOOT SURGERY 2019 Ankle fusion NECK SURGERY cervical fusion RELEASE,CARPAL TUNNEL Left 10/25/2024 Procedure: (LT RELEASE, CARPAL TUNNEL); Surgeon: Anshul Banks MD; Location: [facility]; Service: Neurological Surgery; Laterality: Left; SHOULDER SURGERY Right SPINE SURGERY 1993 Lumbar fusion SPINE SURGERY 1997 Lumbar bone cage SOCIAL HISTORY Social History Tobacco Use Smoking status: Never Smokeless tobacco: Never Substance Use Topics Alcohol use: Never Drug use: Never FAMILY HISTORY Family History Problem Relation Name Age of Onset High blood pressure Mother COPD Father COPD Brother Diabetes Brother High blood pressure Other REVIEW OF SYSTEMS [...] no fatigue, no mood swings Scribe Attestation: Kelley Sidhu RTR acted as a scribe and transcribed components of the current encounter under the direction of the Attending Provider. I have not been involved in providing any clinical treatments or patient care. Electronically Signed, SINAN Mathur OBJECTIVE Vitals: 12/10/24 1500 Weight: 104.3 kg (230 lb) Ortho Exam Right shoulder Inspection: equal muscular [...] AC joint Modified Cross Arm: Positive Labrum Turrell's: Negative Anterior apprehension: Negative Crank Test: Positive Glenohumeral: Compression Rotation Positive IMAGING/OUTSIDE REPORTS MRI report from [facility] performed on 11/13/24 was reviewed today revealing: Previous xrays 6/3/25 ASSESSMENT Right Rotator Cuff Arthropathy DISCUSSION Arthritis of shoulder Discussed pathophysiology, anatomy, [...] tear size, patient age and comorbidities. PLAN Rest Ice Follow up after post-operatively/procedure, as [...] Pain Management Facility Dr. Abhishek Griggs at [facility]. Pain ManagementPhone Number [phone]. Major Surgery: We will prescribe opioids after [...] your prescription refills for excessive abuse or halfway use. If necessary, you will be referred to plate painter. We will monitor your use of scheduled drugs through the KEVEN program. In addition, we will follow the monitoring procedures required by the [facility]. The side effects of Schedule II [...] a current Non-smoker Body mass index is 34.97 kg/m??. Body Mass Index:Patient's current BMI =< [...] and concur. Electronically Signed, Raúl Suh MD 12/17/2024 6:32 AM EDT Mj Dotson: Suzanna ACEVES / MONIQUE is [...] the patient (and/or the patient's family member). * Raúl Suh MD - 12/17/2024 8:34 AM EDT I have reviewed the above History & Physical and I have examined the patient. No changes have occurred since the above History & Physical. Raúl Suh MD Source Note - Raúl Suh MD - 12/17/2024 6:32 AM EDT Images from the original note were not included. NAME: Neeru Samano CSN: [id number] : 1965 PCP: Abhishek Griggs MD REASON FOR VISIT Right Shoulder Is this Worker's Comp? No HPI Neeru [...] hydrocodone PRN. Patient rates her pain a 10/29 int office. Interval HPI: 10/22/24 with Dominic [...] Allergen Reactions Penicillins Rash Other reaction(s): Hives Crestor [Rosuvastatin] Nausea And Vomiting Lipitor [Atorvastatin] Nausea And Vomiting PAST MEDICAL/SURGICAL HISTORY Past Medical History: Diagnosis Date Arthritis Atrial fibrillation (HCC) 2015 Carpal tunnel syndrome 2-25 Diabetes (HCC) Fibromyalgia Fibromyositis 2018 Hypertension Low back pain 1994 PONV (postoperative nausea and vomiting) suggest scopalamine patch prior to surgery Rheumatoid arthritis (HCC) 2016 Sleep apnea bipap Past Surgical History: Procedure Laterality Date CHOLECYSTECTOMY FOOT SURGERY 2019 Ankle fusion NECK SURGERY cervical fusion RELEASE,CARPAL TUNNEL Left 10/25/2024 Procedure: (LT RELEASE, CARPAL TUNNEL); Surgeon: Anshul Banks MD; Location: [facility]; Service: Neurological Surgery; Laterality: Left; SHOULDER SURGERY Right SPINE SURGERY 1993 Lumbar fusion SPINE SURGERY 1997 Lumbar bone cage SOCIAL HISTORY Social History Tobacco Use Smoking status: Never Smokeless tobacco: Never Substance Use Topics Alcohol use: Never Drug use: Never FAMILY HISTORY Family History Problem Relation Name Age of Onset High blood pressure Mother COPD Father COPD Brother Diabetes Brother High blood pressure Other REVIEW OF SYSTEMS [...] care. Electronically Signed, SINAN Mathur OBJECTIVE Vitals: 12/10/24 1500 Weight: 104.3 kg (230 lb) Ortho Exam Right shoulder Inspection: equal muscular [...] AC joint Modified Cross Arm: Positive Labrum Turrell's: Negative Anterior apprehension: Negative Crank Test: Positive Glenohumeral: Compression Rotation Positive IMAGING/OUTSIDE REPORTS MRI report from [facility] performed on 11/13/24 was reviewed today revealing: Previous xrays 10/22/24 ASSESSMENT Right Rotator Cuff Arthropathy DISCUSSION Arthritis of shoulder Discussed pathophysiology, anatomy, [...] tear size, patient age and comorbidities. PLAN Rest Ice Follow up after post-operatively/procedure, as [...] Pain Management Facility Dr. Abhishek Griggs at [facility]. Pain ManagementPhone Number [phone]. Major Surgery: We will prescribe opioids after [...] your prescription refills for excessive abuse or intermodal customer service use. If necessary, you will be referred to plate painter. We will monitor your use of scheduled drugs through the KEVEN program. In addition, we will follow the monitoring procedures required by the [facility]. The side effects of Schedule II [...] a current Non-smoker Body mass index is 34.97 kg/m??. Body Mass Index:Patient's current BMI =< [...] and concur. Electronically Signed, Raúl Suh MD 12/17/2024 6:32 AM EDT Mj Dotson: Suzanna ACEVES / MONIQUE is [...] the patient (and/or the patient's family member). * Raúl Suh MD - 12/17/2024 6:32 AM EDT Images from the original note were not included. NAME: Neeru Pisano [place] CSN: [id number] : 1965 PCP: Abhishek Griggs MD REASON FOR VISIT Right Shoulder Is this Worker's Comp? No HPI Neeru [...] hydrocodone PRN. Patient rates her pain a 10/29 int office. Interval HPI: 10/22/24 with Dominic [...] Allergen Reactions Penicillins Rash Other reaction(s): Hives Crestor [Rosuvastatin] Nausea And Vomiting Lipitor [Atorvastatin] Nausea And Vomiting PAST MEDICAL/SURGICAL HISTORY Past Medical History: Diagnosis Date Arthritis Atrial fibrillation (HCC) 2015 Carpal tunnel syndrome 2-25 Diabetes (HCC) Fibromyalgia Fibromyositis 2018 Hypertension Low back pain 1994 PONV (postoperative nausea and vomiting) suggest scopalamine patch prior to surgery Rheumatoid arthritis (HCC) 2016 Sleep apnea bipap Past Surgical History: Procedure Laterality Date CHOLECYSTECTOMY FOOT SURGERY 2019 Ankle fusion NECK SURGERY cervical fusion RELEASE,CARPAL TUNNEL Left 10/25/2024 Procedure: (LT RELEASE, CARPAL TUNNEL); Surgeon: Anshul Banks MD; Location: [facility]; Service: Neurological Surgery; Laterality: Left; SHOULDER SURGERY Right SPINE SURGERY 1993 Lumbar fusion SPINE SURGERY 1997 Lumbar bone cage SOCIAL HISTORY Social History Tobacco Use Smoking status: Never Smokeless tobacco: Never Substance Use Topics Alcohol use: Never Drug use: Never FAMILY HISTORY Family History Problem Relation Name Age of Onset High blood pressure Mother COPD Father COPD Brother Diabetes Brother High blood pressure Other REVIEW OF SYSTEMS [...] care. Electronically Signed, SINAN Mathur OBJECTIVE Vitals: 12/10/24 1500 Weight: 104.3 kg (230 lb) Ortho Exam Right shoulder Inspection: equal muscular [...] AC joint Modified Cross Arm: Positive Labrum Turrell's: Negative Anterior apprehension: Negative Crank Test: Positive Glenohumeral: Compression Rotation Positive IMAGING/OUTSIDE REPORTS MRI report from [facility] performed on 11/13/24 was reviewed today revealing: Previous xrays 10/22/24 ASSESSMENT Right Rotator Cuff Arthropathy DISCUSSION Arthritis of shoulder Discussed pathophysiology, anatomy, [...] tear size, patient age and comorbidities. PLAN Rest Ice Follow up after post-operatively/procedure, as [...] Pain Management Facility Dr. Abhishek Griggs at [facility]. Pain ManagementPhone Number [phone]. Major Surgery: We will prescribe opioids after [...] your prescription refills for excessive abuse or intermodal customer service use. If necessary, you will be referred to plate painter. We will monitor your use of scheduled drugs through the KEVEN program. In addition, we will follow the monitoring procedures required by the [facility]. The side effects of Schedule II [...] a current Non-smoker Body mass index is 34.97 kg/m??. Body Mass Index:Patient's current BMI =< [...] and concur. Electronically Signed, Raúl Suh MD 12/17/2024 6:32 AM EDT Mj Dotson: Suzanna ACEVES / MONIQUE is [...] patient's family member). documented in this encounter Procedure Notes * Marichuy Kent RN - 12/10/2024 3:54 PM EDT Patient instructed to take the following medications the morning of surgery with a small sip of water: Bisprolol, bupropion, citalopram, diltiazem, esomeprazole, gabapentin, norco, leflunomide, Patient instructed to hold the following prescription medications: Hold 2 weeks: arava and enbrel per rheum Hold 1 week: Trulicity Hold 5 days: ASA and Xarelto per cardiology Hold DOS: HCTZ, Jardiance, losartan Patient instructed to hold NSAID's 1 week prior to surgery. Patient Instructed to hold vitamins 2 weeks prior to surgery. Discussed patients medical history and completed Preadmission Testing Nurse Screening Form and scanned into media. Verified patient will have assistance day of surgery and when d/c'd home. Patient has number to call [facility] with questions. Patient verbalized understanding. documented in this encounter OR Notes * Op Note - Raúl Suh MD - 12/17/2024 12:09 PM EDT Operative/Procedure Note Neeru Samano 12/17/24 Pre-Procedure Diagnosis: Right Rotator cuff arthropathy Post-Procedure Diagnosis: Same Procedure Performed: Reverse total shoulder arthroplasty right shoulder Surgeon(s) and Role: * Raúl Suh MD - Primary Assistants: Pascale Quevedo, Amber Gonzales Anesthesia/Sedation: General w/Block Specimens: ID Type Source Tests Collected by Time Destination 1 : Tissue Humeral head, right shoulder TISSUE EXAM ([place]) Raúl Suh MD 12/17/2024 1048 Estimated Blood Loss: See Anesthesia note Blood Administered: None Grafts or Implants: Implant Name Type Inv. Item Serial No. Supervisor Instant Potato Processing Lot No. LRB No. Used Action GLENOSPHERE STD 36MM [id number] - [id number] IMPLANTS GLENOSPHERE STD 36MM [id number] TORNIER Right 1 Implanted BASEPLT LAT +3MM 25MM [id number] - [id number] IMPLANTS BASEPLT LAT +3MM 25MM [id number] TORNIER Right 1 Implanted INSRT REV PERF HUM SYS SZ 3/4 [id number] - [id number] IMPLANTS INSRT REV PERF HUM SYS SZ 3/4 [id number] TORNIER Right 1 Implanted STEM HUM PERF SYS DZ 3+ LN [id number] - [id number] IMPLANTS STEM HUM PERF SYS DZ 3+ LN [id number] Right 1 Implanted SCR PERIPH 5.0X18MM NS [id number] - [id number] IMPLANTS SCR PERIPH 5.0X18MM NS [id number] TORNIER Right 1 Implanted SCR PERIPH 5.0X22MM NS [id number] - [id number] IMPLANTS SCR PERIPH 5.0X22MM NS [id number] TORNIER Right 2 Implanted SCR PERIPH 5.0X26MM NS [id number] - [id number] IMPLANTS SCR PERIPH 5.0X26MM NS [id number] TORNIER Right 1 Implanted SCR CNTRL THD POST 6.5X30MM [id number] - [id number] IMPLANTS SCR CNTRL THD POST 6.5X30MM [id number] TORNIERRight 1 Implanted Complications: None Condition: Stable Indications:59 yo who has failed conservative treatment with medicine, injections, PT and has had continued pain our recommendations were to undergo reverse total shoulder. All the risk and benefits were discussed with the patient. We have obtained CT scans preoperatively for blueprint technology which will be used throughout the case and help us identify a placement for the glenoid as well as the humeral component. Procedure: The patient was given a interscalene block in the preop holding area. The patient was then brought to the operating room placed in the beachchair positioner after being getting general endotracheal intubation. Once in the beachchair position after intubation we then sterilely prepped with betadine alcohol and chlorehexidine and draped and placed the arm sanchez using the Dinomarket arm sanchez. Using a standard deltopectoral approach dissection was taken down through the deltoid with blunt dissection identified the conjoined tendon we released the right at the superior border of the conch conjoined tendon placed the Emeterio retractor in place and exposed the shoulder. We then released subscap if subscap was present if not the shoulder was then dislocated. The guide system from [employer] was used to make our humeral head cut. We then placed anterior and posterior retractors on the glenoid releasing the biceps and the labrum getting good exposure of the glenoid. Using blueprint foundour center point and placed our guide pin. We then reamed the glenoid sized it to a 25+3 with 30 center screw. Once the baseplate was in position we then placed superior and inferior inferior divergent screws anterior and posterior locking screws . The glenosphere was chosen shows size 36 placed the glenosphere onto the baseplate malleted on using Bang taper. We then set the center screw for the glenosphere was tightened. Once stable we then went back to humerus where we sized the humerus to asize 3 long and reamed with the inlay reamer 2. We then placed the humeral stem into position. Once we had the humeral component in and it was stable we trialed polys. Once the Radha was chosen we then reduced the shoulder and is quite stable we washed with Betadine peroxide 3 L of vancomycin irrigation. We then injected 100 cc of ropivacaine morphine Toradol epinephrine and clonidine. We then closed the the subscapularis back to the lesser tuberosity with #5 FiberWire and any rotator intervaltissue was closed with a #2 FiberWire. We placed 1gram of vancomycin powder. We then closed the deltoid with a #1 strata fix the deep subcutaneous tissue with an 0 Vicryl a 2-0 Vicryl and then a 2-30strata fix for the skin. Dermabond and Exofin dressing was then applied a sterile dressing regular sling and the patient was taken to recovery room in stable condition. Postop Plan: The postoperative plan is reverse total shoulder protocol Physician: Raúl Suh MD Date: 12/17/2024 Time: 12:33 PM documented in this encounter Plan of Treatment Upcoming Encounters Date Type Department Care Team (Late st Contact Info) Description 01/27/2025 12:30 PM EDT Office Visit [facility] Orthoped[facility] - [address] [phone] Raúl Suh MD [facility] [place] [address] documented as of this encounter Procedures Procedure Name Priority Date/Time Associated Diagnosis Comments XR SHOULDER 1 VIEW RIGHT STAT 12/17/2024 1:00 PM EDT NOVA GLUCOSE POC Routine 12/17/2024 12:4 1 PM EDT [place] ARTHROPLASTY GLENOHUMERAL JOINT TOTAL SHOULDER 12/17/2024 11:06 AM EDT Rotator cuff arthropathy of right shoulder Case Notes 0900Vanc in preop Special Needs MRSA screening positive-Vanc to be given preop TISSUE EXAM ([facility] [place]) AP Routine 12/17/2024 1 0:48 AM EDT Rotator cuff arthropathy of right shoulder NOVA GLUCOSE POC Routine 12/17/2024 9:07 AM EDT ABO/RH CONFIRMATION/RETYPE ([place] BKR) STAT 12/17/2024 8:58 AM EDT TYPE AND SCREEN ([place] BKR) STAT 12/17/2024 8:50 AM EDT documented in this encounter Results * XR shoulder 1 view right (12/17/2024 1:00 PM EDT) Anatomical Region Laterality Modality Shoulder X-Ray 12/17/2024 1:51 PM EDT Impressions 12/17/2024 2:06 PM EDT Surgical changes of a total right shoulder arthroplasty without hardware complication. Images reviewed, interpreted, and dictated by Dr. Pato Dorsey. Transcribed by Jenn Betancourt PA-C. Narrative 12/17/2024 2:06 PM EDT XR SHOULDER 1 VIEW RIGHT HISTORY: Joint pain. Recent surgery . FINDINGS: A single view exam demonstrates surgical changes of a total right shoulder arthroplasty. The hardware has a normal appearance. No fracture is identified there is underlying atelectasis in the right base. Procedure Note Pato Dorsey MD - 12/17/2024 XR SHOULDER 1 VIEW RIGHT HISTORY: Joint pain. Recent surgery . FINDINGS: A single view exam demonstrates surgical changes of a total right shoulder arthroplasty. The hardware has a normal appearance. No fracture is identified there is underlying atelectasis in the right base. IMPRESSION: Surgical changes of a total right shoulder arthroplasty without hardware complication. Images reviewed, interpreted, and dictated by Dr. Pato Dorsey. Transcribed by Jenn Betancourt PA-C. Raúl Suh MD IMG DIAGNOSTIC IMAGING ORDERA BLES Final Result * (ABNORMAL) Glucose, Nova Meter (12/17/2024 12:41 PM EDT) POC-GLUCOSE 178(H) 70 - 99 mg/dL 12/17/2024 12:42 PM EDT [facility] Comment: In the event of poor peripheral blood flow, venous or arterial blood should be used due to the potential of erroneous results. Notified Nurse RBV Reacher [phone] 12/17/2024 12:42 PM EDT [facility] Blood WHOLE BLOOD / Unknown 12/17/2024 12:41 PM EDT 12/17/2024 12:42 PM EDT Narrative [facility] - 12/17/2024 12:42 PM EDT Reacher ID is - [id number] Raúl Suh MD POINT OF CARE TEST ORDERABLES Final Result [facility] [address] [place] [address] * Tissue Exam (12/17/2024 10:48 AM EDT) Pathologist [facility] AP RESULT See Note: [facility] Comment: PATHOLOGY REPORT DIAGNOSIS: A. HUMERAL HEAD, RIGHT GROSS ONLY: GROSS DIAGNOSIS: Changes consistent with [id number] osteoarthritis. Final Reviewed, Diagnosed and Electronically Signed By: ELTON RAZO MD CLINICAL HISTORY: Other specific arthropathies, not elsewhere classified, right shoulder MICROSCOPIC DESCRIPTION: GROSS DESCRIPTION: A. Received in formalin labeled humeral head, right shoulder is a 4.5 x 4.5 x 2 cm intact humeral head with a smooth, viable surgical margin. No distinct masses or areas of bone softening are identified. The articular surface is roughened with scattered granularity. No definitive eburnation is identified. No sections are submitted. HDM Tissue OTHER / Unknown 12/17/2024 1 0:48 AM EDT Raúl Suh MD PATHOLOGY/CYTOLOGY ORDERABLES Final Result [facility] [address] [place] [address] * (ABNORMAL) Glucose, Nova Meter (12/17/2024 9:07 AM EDT) POC-GLUCOSE 145(H) 70 - 99 mg/dL 12/17/2024 9:08 AM EDT [facility] Comment:In the event of poor peripheral blood flow, venous or arterial blood should be used due to the potential of erroneous results. Reacher [id number] 12/17/2024 9:08 AM EDT [facility] Blood WHOLE BLOOD / Unknown 12/17/2024 9:07 AM EDT 12/17/2024 9:08 AM EDT Narrative [facility] - 12/17/2024 9:08 AM EDT Reacher ID is - [id number] Raúl Suh MD POINT OF CARE TEST ORDERABLES Final Result [facility] [address] [place], [place] [address] [phone] * ABO/RH Confirmation/Retype (12/17/2024 8:58 AM EDT) RETYPE O POSITIVE 12/17/2024 8:59 AM EDT [facility] ([place] Blood Venipuncture / Unknown 12/17/2024 8:58 AM EDT 12/17/2024 8:58 AM EDT us Raúl Suh MD [facility] TEST ORDERABLE S Final Result [facility] ([place]) [address] [place], [place] [address] [phone] * Type and Screen (12/17/2024 8:50 AM EDT) ABO/Rh O POSITIVE 12/17/2024 8:34 AM EDT [facility] Antibody Screen NEGATIVE 12/17/2024 8:34 AM EDT [facility] ([place] HISTCHK HIST CHECK PERFORMED 12/17/2024 8:34 AM EDT [facility] Blood Venipuncture / Unknown 12/17/2024 8:50 AM EDT 12/17/2024 9:08 AM EDT Raúl Suh MD [facility] BLOOD [facility] TEST ORDERABLE S Edited Result - Final [facility] ([place] [address] [facility] [address], [facility] [phone] documented in this encounter Visit Diagnoses Diagnosis Rotator cuff arthropathy of right shoulder- Primary documented in this encounter Admitting Diagnoses Diagnosis Rotator cuff arthropathy of right shoulder documented in this encounter Administered Medications Inactive Administered Medications - up to 3 most recent administrations Medication Order MAR Action Action Date Dose Rate Site ceFAZolin in sterile water (ANCEF) 2 gram/20 mL syringe 2 g 2 g Every 8 hours scheduled, intravenous, Administer over 3 Minutes, First dose on Mon12/17/24 at 1530, For 2 doses, PACU Cont. to Floor/ICU, Please choose an indication: Surgical Prophylaxis Given 12/17/2024 3:15 PM EDT 2 g celecoxib (CeleBREX) capsule 400 mg 400 mg Once, oral, On Mon12/17/24 at 0900, For 1 dose, Look-alike/Sound-ali ke medication, Pre-op Given 12/17/2024 9:08 AM EDT 400 mg famotidine (PEPCID) tablet 20 mg 20 mg Once, oral, On Mon12/17/24 at 0900, For 1 dose, Pharmacist to renally dose if CrCl is less than 50 mL/min or on CRRT., Pre-op Given 12/17/2024 9:08 AM EDT 20 mg mupirocin (BACTROBAN) 2 % ointment intraNASAL, Once, On Mon12/17/24 at 0900, For 1 dose, Specific area to apply: both nares in pre op, Pre-op Given 12/17/2024 9:08 AM EDT ondansetron (ZOFRAN) injection 4 mg 4 mg Every 8 hours PRN, intravenous, nausea, vomiting, Starting on Mon12/17/24 at 1323, For 2 doses, Give IV if patient is unable to take orally. 1st line If inadequate response within 60 minutes, proceed to next-line agent for same PRN reason or contact provider if no further options ordered. For IV push, give over 2 - 5 minutes., Phase II/On Unit ondansetron (ZOFRAN-ODT) disintegrating tablet 4 mg 4 mg Every 8 hours PRN, oral, nausea, vomiting, Starting on Mon12/17/24 at 1323, For 2 doses, 1st line. If inadequate response within 60 minutes, proceed to next-line agent for same PRN reason or contact provider if no further options ordered., Phase II/On Unit pregabalin (LYRICA) capsule 150 mg 150 mg Once, oral, On Mon12/17/24 at 0900, For 1 dose, Pre-op Given 12/17/2024 9:08 AM EDT 150 mg scopolamine (TRANSDERM-SCOP) patch 1 mg/72 hr 1.5 mg Once (1 patch), transdermal (scopolamine), Administer over 72 Hours, On Mon12/17/24 at 1100, For 1 dose, Pre-op Patch Applied 12/17/2024 10:26 AM EDT 1.5 mg Behind Right Ear vancomycin (VANCOCIN) IVPB 1500 mg in sodium chloride 0.9% (NS) 250 mL (PMX) 1,500 mg Once (rounded from 1,564.5 mg = 15 mg/kg 104.3 kg), intravenous, Administer over 90 Minutes, On Mon12/17/24 at 0900, For 1 dose, Administer within 60 minutes of incision. *REFRIGERATOR*, Pre-op, Please choose an indication: Surgical Prophylaxis IVPB Started 12/17/2024 9:09 AM EDT 1,500 mg 166.7 mL/hr documented in this encounter Active and Recently Administered Medications Times are shown in EDT. Scheduled Medication Order 12/15/2024 12/16/2024 12/17/2024 ceFAZolin in sterile water (ANCEF) 2 gram/20 mL syringe 2 g 2 g Every 8 hours scheduled, intravenous, Administer over 3 Minutes, First dose on Mon12/17/24 at 1530, For 2 doses, PACU Cont. to Floor/ICU, Please choose an indication: Surgical Prophylaxis 1515 (Given - Provid er: Sindhu Ward RN) celecoxib (CeleBREX) capsule 400 mg (COMPLETED) 400 mg Once, oral, On Mon12/17/24 at 0900, For 1 dose, Look-alike/Sound-alike medication, Pre-op 09 (Given - Provid er: Magalie Mandujano RN) clindamycin (CLEOCIN) IVPB 900 mg in dextrose 5 % 50 mL (premix) (COMPLETED) 900 mg Once, intravenous, Administer over 60 Minutes, On Mon12/17/24 at 0900, For 1 dose, Administer within 60 minutes of incision., Pre-op, Please choose an indication: Surgical Prophylaxis 1126 (Given - Provid er: Margaret Bryson CRNA) famotidine (PEPCID) tablet 20 mg (COMPLETED) 20 mg Once, oral, On Mon12/17/24 at 0900, For 1 dose, Pharmacist to renally dose if CrCl is less than 50 mL/min or on CRRT., Pre-op 09 (Given - Provid er: Magalie Mandujano RN) mupirocin (BACTROBAN) 2 % ointment (COMPLETED) intraNASAL, Once, On Mon12/17/24 at 0900, For 1 dose, Specific area to apply: both nares in pre op, Pre-op 09 (Given - Provid er: Magalie Mandujano RN) oxyCODONE (ROXICODONE) immediate release tablet 5 mg 5 mg Every 4 hours scheduled, oral, First dose on Mon12/17/24 at 1400, For pain scale 0-6 Look-alike/Sound-alike medication 1400 (Due) pregabalin (LYRICA) capsule 150 mg (COMPLETED) 150 mg Once, oral, On Mon12/17/24 at 0900, For 1 dose, Pre-op 907 (Given - Provid er: Magalie Mandujano RN) wcduufwuzer-LRG-amgSNFesj-ketoro lac (R.E.C.K.) 2.46-0.005-0.0008-0.3 mg/mL- 50 mL syringe in NS FOR PERIARTICULAR USE (COMPLETED) 100 mL Once, periarticular, On Mon12/17/24 at 0900, For 1 dose, FOR PERIARTICULAR USE ONLY. Local injection to surgical site., Intra-op 09 (Due)1151 (Give n - Provider: Raúl Suh MD) scopolamine (TRANSDERM-SCOP) patch 1 mg/72 hr (CANCELED) 1.5 mg Once (1 patch), transdermal (scopolamine), Administer over 72 Hours, On Mon12/17/24 at 1100, For 1 dose, Pre-op 1026 (Patch Applied - Provider: Rosy Valerio RN)1323 (Due: Patch Removed - Provider: Sindhu Ward RN - Comment: Time automatically adjusted from order being discontinued) vancomycin (VANCOCIN) IVPB 1500 mg in sodium chloride 0.9% (NS) 250 mL (PMX) (COMPLETED) 1,500 mg Once (rounded from 1,564.5 mg = 15 mg/kg 104.3 kg), intravenous, Administer over 90 Minutes, On Mon12/17/24 at 0900, For 1 dose, Administer within 60 minutes of incision. *REFRIGERATOR*, Pre-op, Please choose an indication: Surgical Prophylaxis 0909 (IVPB Started - Provider: Magalie Mandujano, RN)1039 (IVPB Stopped - Provider: Magalie Mandujano RN) Continuous Medication Order 12/15/2024 12/16/2024 12/17/2024 lactated Ringer's infusion (CANCELED) 100 mL/hr Continuous, intravenous, Starting on Mon12/17/24 at 0900, Do not give simultaneously with ceftriaxone via a Y-site., Pre-op 1104 (New Bag - Prov ider: Margaret Bryson CRNA)1231 (Anesthesia Volume Adjustment - Provider: Margaret Bryson CRNA) sodium chloride 0.9 % infusion 100 mL/hr Continuous, intravenous, Starting on Mon12/17/24 at 1400, Phase II/On Unit 1400 (Due) PRN Medication Order 12/15/2024 12/16/2024 12/17/2024 acetaminophen (TYLENOL) tablet 500 mg 500 mg Every 6 hours PRN, oral, mild pain (1-3), and severe pain, Starting on Mon12/17/24 at 1323, Recommended maximum dose of acetaminophen is 4000 mg from all sources in 24 hours, Phase II/On Unit HYDROmorphone (DILAUDID) injection 1 mg 1 mg Every 2 hour PRN, intravenous, for pain scale of 10, Starting on Mon12/17/24 at 1323 ondansetron (ZOFRAN) injection 4 mg(Linked Group 1) 4 mg Every 8 hours PRN, intravenous, nausea, vomiting, Starting on Mon12/17/24 at 1323, For 2 doses, Give IV if patient is unable to take orally. 1st line If inadequate response within 60 minutes, proceed to next-line agent for same PRN reason or contact provider if no further options ordered. For IV push, give over 2 - 5 minutes., Phase II/On Unit ondansetron (ZOFRAN-ODT) disintegrating tablet 4 mg(Linked Group 1) 4 mg Every 8 hours PRN, oral, nausea, vomiting, Starting on Mon12/17/24 at 1323, For 2 doses, 1st line. If inadequate response within 60 minutes, proceed to next-line agent for same PRN reason or contact provider if no further options ordered., Phase II/On Unit oxyCODONE (ROXICODONE) immediate release tablet 5 mg 5 mg Every 4 hours PRN, oral, other, for pain scale 7-9 in addition to scheduled oxycodone, Starting on Mon12/17/24 at 1323, Do not exceed oxycodone 10mg in a 4 hour period Look-alike/Sound-alike medication tranexamic acid (CYKLOKAPRON) injection (CANCELED) As needed, Starting on Mon12/17/24 at 1151, Intra-op 1151 (Given - Provid er: Raúl Suh MD) vancomycin (VANCOCIN) injection (CANCELED) As needed, Starting on Mon12/17/24 at 1150, Intra-op 1150 (Given - Provid er: Raúl Suh MD - Comment: mixed in 3000ml normal saline) vancomycin (VANCOCIN) injection (CANCELED) As needed, Starting on Mon12/17/24 at 1150, Intra-op 1150 (Given - Provid er: Raúl Suh MD - Comment: powder applied to right shoulder) Linked Groups Order Group 1: ondansetron (ZOFRAN-ODT) disintegrating tablet 4 mgJump to med 4 mg Every 8 hours PRN, oral, nausea, vomiting, Starting on Mon12/17/24 at 1323, For 2 doses, 1st line. If inadequate response within 60 minutes, proceed to next- line agent for same PRN reason or contact provider if no further options ordered., Phase II/On Unit Or ondansetron (ZOFRAN) injection 4 mgJump to med 4 mg Every 8 hours PRN, intravenous, nausea, vomiting, Starting on Mon12/17/24 at 1323, For 2 doses, Give IV if patient is unable to take orally. 1st line If inadequate response within 60 minutes, proceed to next-line agent for same PRN reason or contact provider if no further options ordered. For IV push, give over 2 - 5 minutes., Phase II/On Unit documented in this encounter Additional Health Concerns Infection Onset Date Last Indicated Resolved Time MRSA (C) 11/21/2024 11/21/2024 documented as of this encounter Care Teams Hairspring Truer Relationship Specialty Start Date End Date Abhishek Griggs MD [address] [place] [address] PCP - General Adolescent Medicine 10/25/24 Dominic Oliva PA-C [address] [place] [address] Physician Agricultural Equipment Salesperson 10/01/24 documented as of this encounter
--- OUTSIDE RECORDS SUMMARY | 2024-12-17 11:06 | XMS_ITS | Encounter Summary ---
Author Organization [employer] ([place], [place], [place], [place]) Address [address] [place] [address] Care Team Providers Care Control Systems Developer Name Role Phone Dominic Oliva PA-C Unavailable [phone] Abhishek Griggs MD Primary Care Provider + [phone] Reason for Visit * Auth/Cert (Routine) Specialty Diagnoses / Procedures Referred By Howie rondon Referred To Contact Diagnoses Rotator cuff arthropathy of right shoulder Rotator cuff arthropathy, right Procedures FL ARTHROPLASTY GLENOHUMERAL JOINT TOTAL SHOULDER ARTHROPLASTY, SHOULDER, TOTAL, REVERSE [facility] Operating Room [address] [place] [phone] Phone: tel: fax: [facility] [address] [place] [phone] Phone: tel: fax: Referral ID Status Reason Start Date Expiration Date Visits Re quested Visits Authorized [id number] 1 1 Encounter Details Date Type Department Care Team (Late st Contact Info) Description 12/17/2024 11:06 AM EDT Anesthesia Event [facility] [address] [place] [phone] Margaret Bryson CRNA Anesthesia Record Procedure Summary Procedure Name Responsible Anesthesiologist Anesthesia Start Time Anesthesia Stop Time ARTHROPLASTY, SHOULDER, TOTAL, REVERSE (Right: Shoulder) Margaret Bryson CRNA 12/17/24 1106 07/29/25 1239 Events Date Time Event Comment 12/17/2024 1106 An Start Patient identif ied and chart reviewed. 1106 An Start Data Anesthesia mac vickie and monitors checked. 1111 Pre-Induction Eval FDA anest hesia machine pre-use checkout completed. Patient status reassessed prior to start of anesthesia care. 1111 An Induction 1113 An Intubation 1121 Anesthesia Ready 1236 An Extubation 1238 an stop data 1239 Handoff to Receiving I compl eted my handoff to the receiving clinician during which we: 1. Identified the patient. 2. Identified the responsible provider. 3. Reviewed the pertinent medical history. 4. Discussed the surgical course. 5. Reviewed intra-op anesthesia management and issues during anesthesia. 6. Set expectations for post-procedure period. 7. Allowed opportunity for questions and acknowledgement of understanding. 1239 An Stop Meds Name Total dexamethasone (DECADRON) injection 4 mg/ mL 4 mg ePHEDrine injection 50 mg/mL 10 mg fentaNYL (SUBLIMAZE) injection 100 mcg glycopyrrolate (ROBINUL) injection 0.8 m g lidocaine (XYLOCAINE) injection 2% 80 mg neostigmine (PROSTIGMINE) 1 mg/mL inject ion 5 mg ondansetron (ZOFRAN) injection vial 4 mg propofol (DIPRIVAN) injection 10 mg/mL b olus 180 mg rocuronium (ZEMURON) 100 mg/10 mL inject ion 50 mg ropivacaine PF (NAROPIN) injection 0.5 % 20 mL midazolam (VERSED) injection 2 mg/2 mL 2 mg clindamycin (CLEOCIN) IVPB 900 mg in dex trose 5 % 50 mL (premix) 900 mg tranexamic acid (CYKLOKAPRON) injection 2,000 mg phenylephrine (CRYSTAL-SYNEPHRINE) injection 700 mcg lactated Ringer's infusion 900 mL * Agents Name O2 N2O Air SEVOFLURANE * Blood No blood administrations on file. Lines, Drains, and Airways Type Details Placement Removal Wound 12/17/24; 1142; Inci lester; Shoulder; Right; regular sling applied 12/17/24 1142 by Idalmis Schneider RN Peripheral IV Placement Date: 11/20 02/13; Placement Time: 0902; Size: 20 G; Orientation: Anterior, Left; Location: Forearm; Site Prep: Alcohol; Local Anesthetic: None; Insertion attempts: 1; Securement Method: Taped, Skin barrier; Removal Date: 12/17/24; Removal Time: 152; Removal Reason: Therapy Completed 12/17/24 0902 by Magalie Mandujano RN 12/17/24 1525 by Sindhu Ward RN ETT Placement Date 12/17; Placement Time 1113 (created via procedure documentation); Airway Size 7.5; Airway Cuffed Yes; Removal Date 12/17/24; Removal Time 1236 12/17/24 1113 by Margaret Bryson CRNA 12/17/24 1236 by Margaret Bryson CRNA Wound 12/17/24; 1142; Abdo men; Right; 12/17/24; 1313; Healed 12/17/24 1142 by Idalmis Schneider RN 12/17/24 1313 by Idalmis Schneider RN documented in this encounter Social History [...] Date Francis rded Speak language other than Frisian at home Not on file 06/09/2023 Want [...] OR Notes * Anesthesia Postprocedure Evaluation - Margaret Bryson CRNA - 12/17/2024 12:42 PM EDT Patient: Neeru Samano Procedure Summary Date: 12/17/24 Room / Location: [facility] OR [facility] OPERATING ROOM Anesthesia Start: 1106 Anesthesia Stop: 1239 Procedure: ARTHROPLASTY, SHOULDER, TOTAL, REVERSE (Right: Shoulder) Diagnosis: Rotator cuff arthropathy of right shoulder (Rotator cuff arthropathy, right) Surgeons: Raúl Suh MD Responsible Provider: Margaret Bryson CRNA Anesthesia Type: general, regional ASA Status: 3 Anesthesia Type: general, regional Vitals Value Taken Time BP 130/67 12/17/24 1241 Temp 97.1 12/17/24 1242 Pulse 90 12/17/24 1242 Resp 16 12/17/24 1242 SpO2 97 % 12/17/24 1242 Vitals shown include unfiled device data. Wt 104.3 kg (230 lb) Comment: stated BMI 34.97 kg/m?? Anesthesia Post Evaluation Patient location during evaluation: PACU Patient participation: complete - patient participated Level of consciousness: sleepy but conscious and responsive to verbal stimuli Pain score: 0 Pain management: adequate Multimodal analgesia pain management approach Airway patency: patent Two or more strategies used to mitigate risk of obstructive sleep apnea Cardiovascular status: acceptable and hemodynamically stable Respiratory status: acceptable, nonlabored ventilation and spontaneous ventilation (face shield) Hydration status: acceptable Color: [place] Activity: Moves 4 extremities Inotropes/Vasopressors: N/A No notable events documented. Margaret Bryson CRNA 12/17/2024 12:42 PM EDT * Anesthesia Procedure Notes - Margaret Bryson CRNA - 12/17/2024 11:32 AM EDT Associated Order(s): Intubation Intubation Authorized by: Margaret Bryson CRNA Performed by: Margaret Bryson CRNA Date/Time: 12/17/2024 11:13 AM Urgency: elective Indications and Patient Condition Indications for airway management: anesthesia and airway protection Spontaneous ventilation: present Sedation level: general anesthesia Preoxygenated: yes Patient position: sniffing Mask difficulty assessment: 2 - vent by mask + OA or adjuvant +/- NMBA Planned trial extubation: yes Final Airway Details Final airway type: endotracheal airway Endotracheal tube type: ETT Cuffed: yes Successful intubation technique: direct laryngoscopy Facilitating devices/methods: anterior pressure/BURP Endotracheal tube insertion site: oral Blade: Savana Blade size: #3 ETT size (mm): 7.5 Cormack-Lehane Classification: grade I - full view of glottis Placement verified by: chest auscultation and capnometry Measured from: gums ETT to gums (cm): 22 Number of attempts at approach: 1 * Anesthesia Procedure Notes - Dorinda Soria DO - 12/17/2024 10:13 AM EDT Associated Order(s): Peripheral Nerve Block Peripheral Nerve Block Authorized by: Dorinda Soria DO Performed by: Dorinda Soria DO Patient location during procedure: pre-op Start time: 12/17/2024 10:05 AM End time: 12/17/2024 10:10 AM Reason for block: at surgeon's request and post-op pain management Preanesthetic Checklist Completed: patient identified, IV checked, site marked, risks and benefits discussed, surgical consent, monitors and equipment checked, pre-op evaluation and timeout performed Peripheral Block Patient position: supine Prep: ChloraPrep Patient monitoring: heart rate, color television console monitor and continuous pulse ox Block type: interscalene Laterality: right Injection technique: single-shot Guidance: ultrasound guided Needle Needle type: short-bevel Needle gauge: 20 G Needle length: 10 cm Needle localization: ultrasound guidance Test dose: negative Medications Administered midazolam (VERSED) injection 2 mg/2 mL - intravenous 2 mg - 12/17/2024 10:05:00 AM ropivacaine PF (NAROPIN) injection 0.5 % - perineural 20 mL - 12/17/2024 10:05:00 AM Assessment Injection assessment: negative aspiration for heme, no paresthesia on injection, incremental injection and local visualized surrounding nerve on ultrasound Paresthesia pain: none Heart rate change: no Slow fractionated injection: yes * Anesthesia Preprocedure Evaluation - Dorinda Soria DO - 12/17/2024 8:55 AM EDT Anesthesia Pre Evaluation Ms. Neeru Samano is a 59 y.o. female being evaluated for the following: Date/Time: 12/17/24 1115 Procedure: ARTHROPLASTY, SHOULDER, TOTAL, REVERSE (Right) - Right reverse total shoulder arthroplasty Location: [facility] OR OPERATING ROOM Surgeons: Raúl Suh MD Relevant Problems CARDIOVASCULAR (+) Atrial fibrillation (HCC) (+) Hypertension (+) Myocardial infarction (HCC) Other (+) Osteoarthritis of AC (acromioclavicular) joint, Right (+) Osteoarthritis of glenohumeral joint, right (+) Rheumatoid arthritis (HCC) Past Medical History: Diagnosis Date Arthritis Atrial fibrillation (HCC) 2014 Carpal tunnel syndrome 2-25 Diabetes (HCC) Fibromyalgia Fibromyositis 2017 Hypertension Low back pain 1993 PONV (postoperative nausea and vomiting) suggest scopalamine patch prior to surgery Rheumatoid arthritis (HCC) 2016 Sleep apnea bipap Past Surgical History: Procedure Laterality Date CHOLECYSTECTOMY FOOT SURGERY 2018 Ankle fusion NECK SURGERY cervical fusion RELEASE,CARPAL TUNNEL Left 10/25/2024 Procedure: (LT RELEASE, CARPAL TUNNEL); Surgeon: Anshul Banks MD; Location: [facility]; Service: Neurological Surgery; Laterality: Left; SHOULDER SURGERY Right SPINE SURGERY 1993 Lumbar fusion SPINE SURGERY 1997 Lumbar bone cage Allergies Allergen Reactions Penicillins Rash Other reaction(s): Hives Crestor [Rosuvastatin] Nausea And Vomiting Lipitor [Atorvastatin] Nausea And Vomiting Current Outpatient Medications Medication Instructions aspirin 81 [...] tablet SMARTSI Tablet(s) By Mouth Every Evening Clinical information reviewed: NPO Status No data recorded Physical Exam Airway Mallampati: II TM distance: >3 FB Neck ROM: full Cardiovascular - normal exam Dental - normal exam Pulmonary - normal exam Abdominal Anesthesia Plan ASA 3 Planned anesthetic: general and regional (GA OET with interscalene nerve block) Induction: intravenous Informed Consent- Anesthetic plan and risks discussed with patient. Plan discussed with FLOUR TESTER. documented in this encounter Plan of Treatment Upcoming Encounters Date Type Department Care Team (Late st Contact Info) Description 01/27/2025 12:30 PM EDT Office Visit [facility] - [address] [phone] Raúl Suh MD [address] [place] [phone] documented as of this encounter Procedures Procedure Name Priority Date/Time Associated Diagnosis Comments ANESTHESIA INTUBATION Routine 12/17/2024 11:13 AM EDT HC PERIPHERAL NERVE BLOCK SINGLE SHOT Routine 12/17/2024 10:05 AM EDT documented in this encounter Results * AN SINGLE LUMEN INTUBATION (12/17/2024 11:13 AM EDT) Margaret Gannon CRNA - 12/17/2024 11:13 AM EDT Margaret Bryson CRNA 12/17/2024 11:33 AM Intubation Authorized by: Margaret Bryson CRNA Performed by: Margaret Bryson CRNA Date/Time: 12/17/2024 11:13 AM Urgency: elective Indications and Patient Condition Indications for airway management: anesthesia and airway protection Spontaneous ventilation: present Sedation level: general anesthesia Preoxygenated: yes Patient position: sniffing Mask difficulty assessment: 2 - vent by mask + OA or adjuvant +/- NMBA Planned trial extubation: yes Final Airway Details Final airway type: endotracheal airway Endotracheal tube type: ETT Cuffed: yes Successful intubation technique: direct laryngoscopy Facilitating devices/methods: anterior pressure/BURP Endotracheal tube insertion site: oral Blade: Savana Blade size: #3 ETT size (mm): 7.5 Cormack-Lehane Classification: grade I - full view of glottis Placement verified by: chest auscultation and capnometry Measured from: gums ETT to gums (cm): 22 Number of attempts at approach: 1 Margaretcitlalli Bryson POLY ANESTHESIA ORDERABLES Final Result * HC PERIPHERAL NERVE BLOCK SINGLE SHOT (12/17/2024 10:05 AM EDT) Dorinda Moser DO - 12/17/2024 10:05 AM EDT Dorinda Soria DO 12/17/2024 10:16 AM Peripheral Nerve Block Authorized by: Dorinda Soria DO Performed by: Dorinda Soria DO Patient location during procedure: pre-op Start time: 12/17/2024 10:05 AM End time: 12/17/2024 10:10 AM Reason for block: at surgeon's request and post-op pain management Preanesthetic Checklist Completed: patient identified, IV checked, site marked, risks and benefits discussed, surgical consent, monitors and equipment checked, pre-op evaluation and timeout performed Peripheral Block Patient position: supine Prep: ChloraPrep Patient monitoring: heart rate, color television console monitor and continuous pulse ox Block type: interscalene Laterality: right Injection technique: single-shot Guidance: ultrasound guided Needle Needle type: short-bevel Needle gauge: 20 G Needle length: 10 cm Needle localization: ultrasound guidance Test dose: negative Medications Administered midazolam (VERSED) injection 2 mg/2 mL - intravenous 2 mg - 12/17/2024 10:05:00 AM ropivacaine PF (NAROPIN) injection 0.5 % - perineural 20 mL - 12/17/2024 10:05:00 AM Assessment Injection assessment: negative aspiration for heme, no paresthesia on injection, incremental injection and local visualized surrounding nerve on ultrasound Paresthesia pain: none Heart rate change: no Slow fractionated injection: yes Result [facility] Dorinda Soria DO ANESTHESIA ORDERABLES Fin al Result documented in this encounter Visit Diagnoses Not [...] choose an indication: Surgical Prophylaxis Given 12/17/2024 11:26 AM EDT 900 mg dexAMETHasone (DECADRON) injection As needed, intravenous, Starting on Mon12/17/24 at 1129, Anesthesia Intra-op Given 12/17/2024 11:29 AM EDT 4 mg ePHEDrine sulfate injection As needed, intravenous, Starting on Mon12/17/24 at 1124, Anesthesia Intra-op Given 12/17/2024 11:24 AM EDT 10 mg fentaNYL PF (SUBLIMAZE) injection As needed, intravenous, Starting on Mon12/17/24 at 1111, Anesthesia Intra-op Given 12/17/2024 11:11 AM EDT 100 mcg glycopyrrolate (ROBINUL) injection As needed, intravenous, Starting on Mon12/17/24 at 1229, Anesthesia Intra-op Given 12/17/2024 12:29 PM EDT 0.8 mg lactated Ringer's infusion 100 mL/hr Continuous, intravenous, Starting on Mon12/17/24 at 0900, Do not give simultaneously with ceftriaxone via a Y-site., Pre-op New Bag 12/17/2024 11:04 AM EDT lidocaine (XYLOCAINE) injection 2% As needed, intravenous, Starting on Mon12/17/24 at 1111, Anesthesia Intra-op Given 12/17/2024 11:11 AM EDT 80 mg midazolam (VERSED) injection intravenous, Starting on Mon12/17/24 at 1005, Anesthesia Intra-op Given 12/17/2024 10:05 AM EDT 2 mg neostigmine methylsulfate (PROSTIGMINE) injection As needed, intravenous, Starting on Mon12/17/24 at 1229, Anesthesia Intra-op Given 12/17/2024 12:29 PM EDT 5 mg ondansetron (ZOFRAN) injection As needed, intravenous, Starting on Mon12/17/24 at 1131, Anesthesia Intra-op Given 12/17/2024 11:31 AM EDT 4 mg phenylephrine (CRYSTAL-SYNEPHRINE) injection As needed, intravenous, Starting on Mon12/17/24 at 1137, Anesthesia Intra-op Given 12/17/2024 12:05 PM EDT 200 mcg Given 12/17/2024 11:57 AM EDT 200 mcg Given 12/17/2024 11:45 AM EDT 200 mcg propofol (DIPRIVAN) injection 10 mg/mL bolus As needed, intravenous, Starting on Mon12/17/24 at 1111, Anesthesia Intra-op Given 12/17/2024 11:11 AM EDT 180 mg rocuronium (ZEMURON) injection As needed, intravenous, Starting on Mon12/17/24 at 1111, Anesthesia Intra-op Given 12/17/2024 11:11 AM EDT 50 mg ropivacaine PF (NAROPIN) 0.5 % (5 mg/mL) injection perineural, Starting on Mon12/17/24 at 1005, Anesthesia Intra-op Given 12/17/2024 10:05 AM EDT 20 mLs tranexamic acid (CYKLOKAPRON) injection As needed, intravenous, Starting on Mon12/17/24 at 1127, Anesthesia Intra-op Given 12/17/2024 12:08 PM EDT 1,000 mg Given 12/17/2024 11:27 AM EDT 1,000 mg documented in this encounter Additional Health Concerns Infection Onset Date Last Indicated Resolved Time MRSA (C) 11/21/2024 11/21/2024 documented as of this encounter Care Teams Control Systems Developer Relationship Specialty Start Date End Date Abhishek Griggs MD [address] [place] [address] PCP - General Adolescent Medicine 10/25/24 Dominic Oliva PA-C [address] [place] [address] Physician Wool Hat Forming Machine Tender 10/01/24 documented as of this encounter
--- OUTSIDE RECORDS SUMMARY | 2024-12-17 11:15 | XMS_ITS | Encounter Summary ---
Author Organization [employer] ([place], [place], [place], [place]) Address [address] [place] [address] Care Team Providers Care Paperhanger Pipe Name Role Phone Dominic Oliva PA-C Unavailable [phone] Abhishek Griggs MD Primary Care Provider + [phone] Reason for Visit * Auth/Cert (Routine) Specialty Diagnoses / Procedures Referred By Howie rondon Referred To Contact Diagnoses Rotator cuff arthropathy of right shoulder Rotator cuff arthropathy, right Procedures RI ARTHROPLASTY GLENOHUMERAL JOINT TOTAL SHOULDER ARTHROPLASTY, SHOULDER, TOTAL, REVERSE [facility] [address] [place] [phone] Phone: tel: fax: [facility] [address] [place] [phone] Phone: tel: fax: Referral ID Status Reason Start Date Expiration Date Visits Re quested Visits Authorized [id number] 1 1 Encounter Details Date Type Department Care Team (Late st Contact Info) Description 12/17/2024 11:15 AM EDT - 12/17/2024 1:13 PM EDT [facility] [address] [place] [phone] Raúl Suh MD [address] [place] [phone] ARTHROPLASTY, SHOULDER, TOTAL, REVERSE Social History Tobacco Use Types Packs/Day Years [...] Date Francis rded Speak language other than Botswanan at home Not on file 06/09/2023 Want [...] Sign Reading Time Taken Comments Blood Pressure 117/60 12/17/2024 1:10 PM EDT Pulse 74 12/17/2024 1:10 PM EDT Temperature 36.2 C (97.1 F) 12/17/2024 12:40 PM EDT Respiratory Rate 16 12/17/2024 1:10 PM EDT Oxygen Saturation 95% 12/17/2024 1:10 PM EDT Inhaled Oxygen Concentration 100% 12/17/2024 [...] Your Medications These medications were sent to [facility] [address] [phone] cefadroxil 500 MG capsule celecoxib 200 MG [...] CARPAL TUNNEL); Surgeon: Anshul Banks MD; Location: [facility]; Service: Neurological Surgery; Laterality: Left; SHOULDER SURGERY [...] Co-treated by: OT Assisted by: Physical Therapist, Slag Dumper Precautions Weight-Bearing Status: NWB R UE Precautions: [...] I concur with her/his documentation of Neeru Samano. * Lorraine Flower, OTR - 12/17/2024 2:32 [...] (HCC) 2014 Carpal tunnel syndrome 2-25 Diabetes ([facility]) Fibromyalgia Fibromyositis 2018 Hypertension Low back pain 1993 PONV (postoperative nausea and vomiting) suggest scopalamine patch prior to surgery Rheumatoid arthritis ([facility]) 2016 Sleep apnea bipap Past Surgical History: Procedure Laterality Date CHOLECYSTECTOMY FOOT SURGERY 2019 Ankle fusion NECK SURGERY cervical fusion RELEASE,CARPAL TUNNEL Left 10/25/2024 Procedure: (LT RELEASE, CARPAL TUNNEL); Surgeon: Anshul Banks MD; Location: [facility]; Service: Neurological Surgery; Laterality: Left; SHOULDER SURGERY [...] Co-treated by: PT Assisted by: PT student, rehabilitation caseworker Precautions Weightbearing status: Non-weight bearing (NWB), RUE Precautions: Fall risk Isolation precautions: Standard LDA/Brace/Protective equipment: Lines, drains, and airways: blood pressure cuff, peripheral IV, pulse oximeter , telemetry Brace/protective equipment: UE sling and swath , RUE Subjective Subjective: Pt agreeable , spouse and daugthter present Pain No-patient reports 0/10 pain Cognition Cognition: Overall cognitive status: [facility] Orientation level: Oriented x4 Vision/Hearing History Visual/Hearing [...] RAFAEL - unable to assess Outcome Measures [facility] Daily Living Functional Assessment How much help [...] the patient's discharge summary. Electronically signed by NOMAN Cheng - 12/17/2024 - 2:32 PM EDT * [...] were not included. NAME: Neeru Samano CSN: [id number] : 1965 PCP: Abhishek Griggs MD REASON [...] CARPAL TUNNEL); Surgeon: Anshul Banks MD; Location: [facility]; Service: Neurological Surgery; Laterality: Left; SHOULDER SURGERY [...] AC joint Modified Cross Arm: Positive Labrum [place]'s: Negative Anterior apprehension: Negative Crank Test: Positive Glenohumeral: Compression Rotation Positive IMAGING/OUTSIDE REPORTS MRI report from [facility] performed on 11/13/24 was reviewed today revealing: [...] Pain Management Facility Dr. Abhishek Griggs at [facility]. Pain ManagementPhone Number [phone]. Major Surgery: We will prescribe opioids after [...] your prescription refills for excessive abuse or residential use. If necessary, you will be referred to mobile paint specialist. We will monitor your use of scheduled drugs through the KEVEN program. In addition, we will follow the monitoring procedures required by the [facility]. The side effects of Schedule II [...] care. Electronically Signed, Deborah Eisenberg CMA I, Raúl Suh MD attest that I have examined the above patient. I have dictated the exam, diagnosis, and plan to the scribe listed above to be transcribed into this document. I have supplemented the above documentation as warranted. I attest that I have reviewed the above documentation in its entirety and concur. Electronically Signed, Raúl Suh MD 12/17/2024 6:32 AM EDT Nottimmy Bene: Suzanna ACEVES / MONIQUE is undergoing an [...] were not included. NAME: Neeru Samano CSN: [id number] : 1965 PCP: Abhishek Griggs MD REASON [...] PRN. Patient rates her pain a 6/10 int office. Interval HPI: 10/22/24 with Dominic [...] CARPAL TUNNEL); Surgeon: Anshul Banks MD; Location: [facility]; Service: Neurological Surgery; Laterality: Left; SHOULDER SURGERY [...] AC joint Modified Cross Arm: Positive Labrum [place]'s: Negative Anterior apprehension: Negative Crank Test: Positive Glenohumeral: Compression Rotation Positive IMAGING/OUTSIDE REPORTS MRI report from [facility] performed on 11/13/24 was reviewed today revealing: [...] Pain Management Facility Dr. Abhishek Griggs at [facility]. Pain ManagementPhone Number [phone]. Major Surgery: We will prescribe opioids after [...] your prescription refills for excessive abuse or vermin exterminator use. If necessary, you will be referred to mobile paint specialist. We will monitor your use of scheduled drugs through the KEVEN program. In addition, we will follow the monitoring procedures required by the [facility]. The side effects of Schedule II [...] Suh MD 12/17/2024 6:32 AM EDT Mj Bene: Suzanna ACEVES / MONIQUE is undergoing an [...] were not included. NAME: Neeru Samano CSN: [id number] : 1965 PCP: Abhishek Griggs MD REASON [...] CARPAL TUNNEL); Surgeon: Anshul Banks MD; Location: [facility]; Service: Neurological Surgery; Laterality: Left; SHOULDER SURGERY [...] AC joint Modified Cross Arm: Positive Labrum [place]'s: Negative Anterior apprehension: Negative Crank Test: Positive Glenohumeral: Compression Rotation Positive IMAGING/OUTSIDE REPORTS MRI report from [facility] performed on 11/13/24 was reviewed today revealing: [...] Pain Management Facility Dr. Abhishek Griggs at [facility]. Pain ManagementPhone Number [phone]. Major Surgery: We will prescribe opioids after [...] your prescription refills for excessive abuse or vermin exterminator use. If necessary, you will be referred to mobile paint specialist. We will monitor your use of scheduled drugs through the KEVEN program. In addition, we will follow the monitoring procedures required by the [facility]. The side effects of Schedule II [...] Suh MD - Primary Assistants: Pascale Quevedo, Rubia Begum, Amber Pablo Anesthesia/Sedation: General w/Block Specimens: ID Type Source Tests Collected by Time Destination 1 : Tissue Humeral head, right shoulder TISSUE EXAM ([place]) Raúl Suh MD 12/17/2024 1048 Estimated Blood Loss: See Anesthesia note Blood Administered: None Grafts or Implants: Implant Name Type Inv. Item Serial No. Welding Production Supervisor Lot No. LRB No. Used Action GLENOSPHERE STD 36MM [id number] - [id number] IMPLANTS GLENOSPHERE STD 36MM [id number] TORNIER Right 1 Implanted BASEPLT LAT +3MM 25MM [id number] - [id number] IMPLANTS BASEPLT LAT +3MM 25MM [id number] TORNIER Right 1 Implanted INSRT REV PERF HUM SYS SZ 3/4 [id number] - [id number] IMPLANTS INSRT REV PERF HUM SYS SZ 3/4 [id number] TORNIER Right 1 Implanted STEM HUM PERF SYS DZ 3+ LN [id number] - [id number] IMPLANTS STEM HUM PERF SYS DZ 3+ LN [id number] Right 1 Implanted SCR PERIPH 5.0X18MM NS [id number] - [id number] IMPLANTS SCR PERIPH 5.0X18MM NS [id number] TORNIER Right 1 Implanted SCR PERIPH 5.0X22MM NS [id number] - [id number] IMPLANTS SCR PERIPH 5.0X22MM NS [id number] TORNIER Right 2 Implanted SCR PERIPH 5.0X26MM NS [id number] - [id number] IMPLANTS SCR PERIPH 5.0X26MM NS [id number] TORNIER Right 1 Implanted SCR CNTRL THD POST 6.5X30MM [id number] - [id number] IMPLANTS SCR CNTRL THD POST 6.5X30MM [id number] TORNIERRight 1 Implanted Complications: None Condition: Stable [...] and placed the arm sanchez using the [employer] arm sanchez. Using a standard deltopectoral approach [...] then placed the humeral stem into position. Oncewe had the humeral component in and it [...] tuberosity with #5 FiberWire and any rotator interval tissue was closed with a #2 FiberWire. We placed 1gram of vancomycin powder. We then closed the deltoid with a #1 strata fix the deep subcutaneous tissue with an 0 Vicryl a 2-0 Vicryl and then a 2-30 strata fix for the skin. Dermabond and Exofin [...] Description 01/27/2025 12:30 PM EDT Office Visit [facility] - [address] [phone] Raúl Suh MD [address] [place] [phone] documented as of this encounter Procedures Procedure Name Priority Date/Time Associated Diagnosis Comments XR SHOULDER 1 VIEW RIGHT STAT 12/17/2024 1:00 PM EDT NOVA GLUCOSE POC Routine 12/17/2024 12:4 1 PM EDT RI ARTHROPLASTY GLENOHUMERAL JOINT TOTAL SHOULDER 12/17/2024 11:06 [...] 12/17/2024 8:58 AM EDT TYPE AND SCREEN ([place] BKR) STAT 12/17/2024 8:50 AM EDT documented [...] - 99 mg/dL 12/17/2024 12:42 PM EDT [facility] Comment: In the event of poor peripheral blood flow, venous or arterial blood should be used due to the potential of erroneous results. Notified Nurse RBV Catering Sales Manager [phone] 12/17/2024 12:42 PM EDT [facility] Blood WHOLE BLOOD / Unknown 12/17/2024 12:41 PM EDT 12/17/2024 12:42 PM EDT Narrative [facility] - 12/17/2024 12:42 PM EDT Catering Sales Manager ID is - [id number] Raúl Suh MD POINT OF CARE TEST ORDERABLES Final Result [facility] [address] [place] [address] * Tissue Exam (12/17/2024 10:48 AM EDT) AP RESULT See Note: [facility] Comment: PATHOLOGY REPORT DIAGNOSIS: A. HUMERAL HEAD, RIGHT GROSS ONLY: GROSS DIAGNOSIS: Changes consistent with wfwk-yr-jbwlvsdp osteoarthritis. Final Reviewed, Diagnosed and Electronically Signed [...] Raúl Suh MD PATHOLOGY/CYTOLOGY ORDERABLES Final Result Performing Organization Address City/[facility] Co de Phone Number [facility] [address] [place] [address] * (ABNORMAL) Glucose, Nova Meter (12/17/2024 9:07 AM EDT) POC-GLUCOSE 145(H) 70 - 99 mg/dL 12/17/2024 9:08 AM EDT [facility] Comment:In the event of poor peripheral blood flow, venous or arterial blood should be used due to the potential of erroneous results. Catering Sales Manager [phone] 12/17/2024 9:08 AM EDT [facility] Blood WHOLE BLOOD / Unknown 12/17/2024 9:07 AM EDT 12/17/2024 9:08 AM EDT Narrative [facility] - 12/17/2024 9:08 AM EDT Catering Sales Manager ID is - [id number] us Raúl Suh MD POINT OF CARE TEST ORDERABLES Final Result Performing Organization Address City/[facility]/ZIP Co de Phone Number [facility] [address] [place] [address] * ABO/RH Confirmation/Retype (12/17/2024 8:58 AM EDT) RETYPE O POSITIVE 12/17/2024 8:59 AM EDT [facility] ([place]) Blood Venipuncture / Unknown 12/17/2024 8:58 AM EDT 12/17/2024 8:58 AM EDT Raúl Suh MD [facility] TEST ORDERABLE S Final Result [facility] ([place]) [address] [place] [id number], [facility] [phone] * Type and Screen (12/17/2024 8:50 AM EDT) ABO/Rh O POSITIVE 12/17/2024 8:34 AM EDT [facility] ([place]) Antibody Screen NEGATIVE 12/17/2024 8:34 AM EDT [facility] ([place]) HISTCHK HIST CHECK PERFORMED 12/17/2024 8:34 AM EDT [facility] ([place]) Blood Venipuncture / Unknown 12/17/2024 8:50 AM EDT 12/17/2024 9:08 AM EDT Raúl Suh MD [facility] TEST ORDERABLE S Edited Result - Final [facility] ([place]) [address] [place] [id number], [facility] [phone] documented in this encounter Visit Diagnoses Diagnosis Rotator cuff arthropathy of right shoulder- Primary Rotator cuff arthropathy of right shoulder documented in this encounter Admitting Diagnoses Diagnosis [...] Given 12/17/2024 9:08 AM EDT 150 mg ugqjnhhebtj-OHM-gbwIEE ine-ketorolac (R.E.C.K.) 2.46-0.005-0.0008-0.3 mg/mL- 50 mL syringe in NS FOR PERIARTICULAR USE 100 mL Once, periarticular, On Mon12/17/24 at 0900, For 1 dose, FOR PERIARTICULAR USE ONLY. Local injection to surgical site., Intra-op Given 12/17/2024 11:51 AM EDT 100 mLs Right Shoulder scopolamine (TRANSDERM-SCOP) patch 1 mg/72 hr 1.5 mg Once (1 patch), transdermal (scopolamine), Administer over 72 Hours, On Mon12/17/24 at 1100, For 1 dose, Pre-op Patch Applied 12/17/2024 10:26 AM EDT 1.5 mg Behind Right Ear tranexamic acid (CYKLOKAPRON) injection As needed, Starting on Mon12/17/24 at 1151, Intra-op Given 12/17/2024 11:51 AM EDT 1,000 mg Right Shoulder vancomycin (VANCOCIN) injection As needed, Starting on Mon12/17/24 at 1150, Intra-op Given 12/17/2024 11:50 AM EDT 1,000 mg Right Shoulder vancomycin (VANCOCIN) injection As needed, Starting on Mon12/17/24 at 1150, Intra-op Given 12/17/2024 11:50 AM EDT 1,000 mg Right Shoulder vancomycin (VANCOCIN) IVPB 1500 mg in sodium [...] 0900, For 1 dose, Look-alike/Sound-alike medication, Pre-op 907 (Given - Provid er: Magalie [...] than 50 mL/min or on CRRT., Pre-op 907 (Given - Provid er: Magalie Mandujano RN) mupirocin (BACTROBAN) 2 % ointment (COMPLETED) intraNASAL, Once, On Mon12/17/24 at 0900, For 1 dose, Specific area to apply: both nares in pre op, Pre-op 907 (Given - Provid er: Magalie Mandujano RN) oxyCODONE (ROXICODONE) immediate release tablet 5 mg 5 mg Every 4 hours scheduled, oral, First dose on Mon12/17/24 at 1400, For pain scale 0-6 Look-alike/Sound-alike medication 1400 (Due) pregabalin (LYRICA) capsule 150 mg (COMPLETED) 150 mg Once, oral, On Mon12/17/24 at 0900, For 1 dose, Pre-op 09 (Given - Provid er: Magalie Mandujano RN) udhybxkyjnp-DMB-zfyCVRrso-ketoro lac (R.E.C.K.) 2.46-0.005-0.0008-0.3 mg/mL- 50 mL syringe in NS FOR PERIARTICULAR USE (COMPLETED) 100 mL Once, periarticular, On Mon12/17/24 at 0900, For 1 dose, FOR PERIARTICULAR USE ONLY. Local injection to surgical site., Intra-op 0900 (Due)1151 (Give n - Provider: Raúl Suh MD) scopolamine (TRANSDERM-SCOP) patch 1 mg/72 hr (CANCELED) 1.5 mg Once (1 patch), transdermal (scopolamine), Administer over 72 Hours, On Mon12/17/24 at 1100, For 1 dose, Pre-op 1026 (Patch Applied - Provider: Rosy Valerio, RN)1323 (Due: Patch Removed - Provider: Sindhu [...] Mandujano, RN)1039 (IVPB Stopped - Provider: Magalie Mandujano, RN) Continuous Medication Order 12/15/2024 12/16/2024 12/17/2024 [...] documented as of this encounter Care Teams Paperhanger Pipe Relationship Specialty Start Date End Date Abhishek Griggs MD [address] [place] [address] PCP - General Adolescent Medicine 10/25/24 Dominic Oliva PA-C [address] [place] [address] Physician Hand Etcher 10/01/24 documented as of this encounter
--- OUTSIDE RECORDS SUMMARY | 2024-12-30 09:15 | XMS_ITS | Encounter Summary ---
Author Organization [employer] ([place], [place], [place], [place]) Address [address] [place] [address] Care Team Providers Care Dental Service Technician Name Role Phone Dominic Oliva PA-C Unavailable [phone] Abhishek Griggs MD Primary Care Provider + [phone] Reason for Visit * Reason Comments Post-Op Follow-up Reverse total should er arthroplasty right shoulder DOS 12/17/24 Encounter Details Date Type Department Care Team (Late st Contact Info) Description 12/30/2024 9:15 AM EDT Office Visit [facility] Orthopedics - [address] [phone] Raúl Suh MD [address] [place] [phone] S/P reverse total shoulder arthroplasty, right (Primary Dx) Social History Tobacco Use Types Packs/Day Years [...] Date Francis rded Speak language other than Nauruan at home Not on file 06/09/2023 Want [...] Sign Reading Time Taken Comments Blood Pressure 122/73 12/30/2024 9:29 AM EDT Pulse 74 12/30/2024 9:29 AM EDT Temperature - - Respiratory Rate - - Oxygen Saturation - - Inhaled Oxygen Concentration - - Weight 104.3 kg (230 lb) 12/30/2024 9:29 AM EDT Height 172.7 cm (5' 8 ) 12/30/2024 9:29 AM EDT Body Mass Index 34.97 12/30/2024 9:29 AM EDT documented in this encounter Progress Notes * Raúl Suh MD - 12/30/2024 9:15 AM EDT Images from the original note were not included. NAME: Neeru Samano CSN: [id number] : 1965 PCP: Abhishek Griggs MD [facility] CONSENT The following consent language was reviewed verbally with the patient in full: Anastacia, I am using a tool to help me do my notes. It is recording our conversation and creates my notes automatically and I can focus on our discussion instead of typing in the room. Is that okay with you? The patient demonstrated understanding and verbally agreed to the above consent language. All questions were addressed, and the patient provided informed consent to proceed. REASON FOR VISIT Post-Op Follow-up (Reverse total shoulder arthroplasty right shoulder DOS 12/17/24) Is this Worker's Comp? No HPI History of Present Illness Neeru Samano is a 59 year old female who presents for a follow-up after reverse total shoulder arthroplasty. DOS was 12/17/24 She reports feeling good and notes that she is getting better every day following her reverse totalshoulder arthroplasty. Pain management was necessary for five to six days post-operatively, which she describes as typical for her shoulder recovery. She is actively engaging in prescribed exercises, including arm circles and elbow exercises, and has recently added abduction and forward elevation exercises to her routine. She uses ice therapy after exercise and reports that it makes her feel good. She no longer requires a sling and has no visible stitches, as they are beneath the skin with a special stitch and glue. CURRENT MEDICATIONS Current Outpatient Medications Medication Instructions aspirin 81 mg, Daily bisoprolol (ZEBETA) 5 mg, oral, Daily buPROPion XL (WELLBUTRIN XL) 150 mg, Every morning celecoxib (CELEBREX) 200 mg, oral, Daily citalopram (CELEXA) 40 mg, Daily dilTIAZem (CARDIZEM CD) 120 mg, Daily EnbreL SureClick 50 mg/mL (1 mL) PnIj 1 Syringe, Weekly esomeprazole (NEXIUM) 40 mg, Daily gabapentin (NEURONTIN) 800 mg, 2 times daily hydroCHLOROthiazide (HYDRODIURIL) 12.5 mg, Daily Jardiance 25 mg, Every morning leflunomide (ARAVA) 20 mg, Daily losartan (COZAAR) 50 mg, Daily Repatha Syringe 140 mg, Every 14 days Trulicity 4.5 mg/0.5 mL syringe Inject subcutaneously. Xarelto 10 mg, oral, Daily with breakfast ALLERGIES Allergies Allergen Reactions Penicillins Rash Other reaction(s): Hives Crestor [Rosuvastatin] Nausea And Vomiting Lipitor [Atorvastatin] Nausea And Vomiting PAST MEDICAL/SURGICAL HISTORY Past Medical History: Diagnosis Date Arthritis Atrial fibrillation ([facility]) 2015 Carpal tunnel syndrome 2-25 Diabetes ([facility]) Fibromyalgia Fibromyositis 2018 Hypertension Low back pain 1993 PONV (postoperative nausea and vomiting) suggest scopalamine patch prior to surgery Rheumatoid arthritis ([facility]) 2016 Sleep apnea bipap Past Surgical History: Procedure Laterality Date ARTHROPLASTY,SHOULDER REVERSE Right 12/17/2024 Procedure: ARTHROPLASTY, SHOULDER, TOTAL, REVERSE; Surgeon: Raúl Suh MD; Location: [facility] OR; Service: Orthopedic Surgery; Laterality: Right; Right reverse total shoulder arthroplasty CHOLECYSTECTOMY FOOT SURGERY 2019 Ankle fusion NECK SURGERY cervical fusion RELEASE,CARPAL TUNNEL Left 10/25/2024 Procedure: (LT RELEASE, CARPAL TUNNEL); Surgeon: Anshul Banks MD; Location: [facility] OR; Service: Neurological Surgery; Laterality: Left; SHOULDER SURGERY [...] no anxiety, no fatigue, no mood swings OBJECTIVE Vitals: 12/30/24 0929 BP: 122/73 Pulse: 74 Weight: 104.3 kg (230 lb) Height: 1.727 m (5' 8 ) Physical Exam Right shoulder exam GENERAL: Awake, Alert, Oriented 3 out of 3, Well developed APPEARANCE: Swelling within normal limits, no deformity PALPATION: Tender to palpation diffuse within normal limits RANGE OF MOTION: Elbow and wrist range of motion intact, active full extension, external rotation STRENGTH: Deferred; teacher vocational training 5/5 GAIT: Normal wearing sling NEUROVASCULAR: Neurovascularly intact, no Homans sign SKIN: Incision clean, dry, intact without erythema or drainage IMAGING/OUTSIDE REPORTS X-Rays were performed and interpreted today in office of right shoulder, 3 views non-weight bearingrevealing: Results RADIOLOGY AP scapular Y view: Reverse total shoulder arthroplasty with good alignment. No signs of acute post-operative complications. ASSESSMENT/PLAN Problem List Items Addressed This Visit None Visit Diagnoses S/P reverse total shoulder arthroplasty, right - Primary Relevant Orders XR shoulder complete 2 views min right Assessment & Plan Postoperative care following right reverse total shoulder arthroplasty Postoperative course progressing well, no acute complications. X-rays show good alignment. Incisionhealing well. Pain managed effectively. - Remove bandage, apply lotions/creams to incision. - Initiate shoulder abduction and forward elevation exercises. - Continue circular and elbow exercises. - Use ice therapy post-exercise for 20 minutes. - Discontinue sling use. - Schedule follow-up in four weeks. I, Raúl Suh MD attest that I have examined the above patient. I have dictated the exam, diagnosis, and plan to the scribe listed above to be transcribed into this document. I have supplemented the above documentation as warranted. I attest that I have reviewed the above documentation in its entirety and concur. Electronically Signed, Raúl Suh MD 12/30/2024 9:37 AM EDT documented in this encounter Plan of Treatment Upcoming Encounters Date Type Department Care Team (Late st Contact Info) Description 01/27/2025 12:30 PM EDT Office Visit [facility] Orthoped[facility] - [address] [phone] Raúl Suh MD [address] [place] [phone] documented as of this encounter Procedures Procedure Name Priority Date/Time Associated Diagnosis Comments XR SHOULDER COMPLETE 2 VIEWS MIN RIGHT Routine 12/30/2024 9:32 AM EDT S/P reverse total shoulder arthroplasty, right documented in this encounter Results * XR shoulder complete 2 views min right (12/30/2024 9:32 AM EDT) Anatomical Region Laterality Modality X-Ray Narrative 12/30/2024 9:44 AM EDT X-Rays were performed and interpreted today in office of right shoulder, 3 views non-weight bearing revealing: Reverse total shoulder arthroplasty with good alignment. No signs of acute post-operative complications. us Raúl Suh MD IMG DIAGNOSTIC IMAGING ORDERA BLES Final Result documented in this encounter Visit Diagnoses Diagnosis S/P reverse total shoulder arthroplasty, right- Primary documented in this encounter Additional Health Concerns Infection Onset Date Last Indicated Resolved Time MRSA (C) 11/21/2024 11/21/2024 documented as of this encounter Care Teams Dental Service Technician Relationship Specialty Start Date End Date Abhishek Griggs MD [address] [place] [address] PCP - General Adolescent Medicine 10/25/24 Dominic Oliva PA-C [address] [place] [address] Physician [employer] 10/01/24 documented as of this encounter
--- OUTSIDE RECORDS SUMMARY | 2024-12-30 09:30 | XMS_ITS | Encounter Summary ---
Author Organization [employer] ([place], [place], [place], [place]) Address [address] [place] [address] Care Team Providers Care Utilization Engineer Name Role Phone Dominic Oliva PA-C Unavailable [phone] Abhishek Griggs MD Primary Care Provider + [phone] Encounter Details Date Type Department Care Team (Late st Contact Info) Description 12/30/2024 9:30 AM EDT Ancillary Procedure [facility] Orthopedics - [address] [phone] Raúl Suh MD [address] [place] [phone] Social History Tobacco Use Types Packs/Day Years [...] Date Francis rded Speak language other than Lithuanian at home Not on file 06/09/2023 Want [...] Description 01/27/2025 12:30 PM EDT Office Visit [facility] Orthopedics - [address] [phone] Raúl Suh MD [address] [place] [phone] documented as of this encounter Procedures Procedure [...] Diagnoses Not on filedocumented in this encounter Additional Health Concerns Infection Onset Date Last Indicated Resolved Time 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
--- OUTSIDE RECORDS SUMMARY | 2025-01-10 18:17 | XMS_ITS | Encounter Summary ---
Author Organization [employer] ([place], [place], [place], [place]) Address [address] [place] [address] Care Team Providers Care Operations Intelligence Name Role Phone Dominic Oliva PA-C Unavailable [phone] Abhishek Griggs MD Primary Care Provider + [phone] Reason for Visit * Reason Comments Shoulder Pain Encounter Details Date Type Department Care Team (Late st Contact Info) Description 01/10/2025 6:17 PM EDT - 01/10/2025 9:01 PM EDT Emergency [facility] Emergency Department [address] [place] [phone] Sp Campa DO [address] [place] [address] Anterior dislocation of right shoulder, initial encounter (Primary Dx) Discharge Disposition: Home or Self Care Social [...] Date Francis rded Speak language other than Omani at home Not on file 06/09/2023 Want [...] Sign Reading Time Taken Comments Blood Pressure 123/63 01/10/2025 8:00 PM EDT Pulse 88 01/10/2025 8:00 PM EDT Temperature 36.9 C (98.5 F) 01/10/2025 7:03 PM EDT Respiratory Rate 19 01/10/2025 7:25 PM EDT Oxygen Saturation 91% 01/10/2025 8:00 PM EDT Inhaled Oxygen Concentration - - Weight 104.3 kg (230 lb) 01/10/2025 6:33 PM EDT Height 170.2 cm (5' 7 ) 01/10/2025 6:33 PM EDT Body Mass Index 36.02 01/10/2025 6:33 PM EDT documented in this encounter Discharge Instructions * Discharge Instructions* Marianne Banks PA-C - 01/10/2025 7:38 PM EDT You were evaluated on an emergency basis. It is very important that you follow- up with your primarycare provider and any specialists we discussed within the next 2 days in order to better assess your health more comprehensively. For example, incidental findings on imaging or laboratory results that were performed today may be discovered, which do not require immediate medical care, but may impact your health in the future. If your symptoms worsen or persist, please return to the emergency department immediately for reassessment. If you do not have immediate access to a primary care physician, you can call the Find-A-Doc line at [phone]. Take all medication as prescribed. Thank you forallowing me to participate in your healthcare, and I hope you feel better soon. * Attachments The following attachments cannot be sent through Care Everywhere. * Moderate Conscious Sedation Adult Care After (Omani) * Shoulder Dislocation [id number] (Omani) documented in this encounter Medications at Time [...] (50 mg total) by mouth daily. 06/01/2023 oxyCODONE-aceta minophen (PERCOCET) 5-325 mg per tablet Take 1 tablet by mouth every 6 (six) hours as needed for pain for up to 10 days Look-alike/Sound- alike medication. Max Daily Amount: 4 tablets 12 tablet 01/10/2025 Repatha Syringe 140 mg/mL syringe Inject 140 mg under the skin every 14 (fourteen) days. 08/20/2024 Trulicity 4.5 mg/0.5 mL syringe Inject subcutaneously. 06/15/2023 documented as of this encounter ED Notes * Sp Campa, - 01/10/2025 6:29 PM EDT Subjective Chief Complaint: Right shoulder pain HPI This is a 59-year-old female 3 weeks status post reverse right shoulder arthroplasty by Dr. Suh presenting with acute onset of right shoulder pain. Patient states that her right shoulder dislocated about an hour ago. She was sitting still when it popped out. She is in severe pain localized to the right shoulder. No injury. Patient History Past Medical History: Diagnosis Date ??? Arthritis ??? Atrial fibrillation (HCC) 2014 ??? Carpal tunnel syndrome 2- ??? Diabetes (HCC) ??? Fibromyalgia ??? Fibromyositis 2017 ??? Hypertension ??? Low back pain 1993 ??? PONV (postoperative nausea and vomiting) suggest scopalamine patch prior to surgery ??? Rheumatoid arthritis (HCC) 2015 ??? Sleep apnea bipap Past Surgical History: Procedure Laterality Date ??? ARTHROPLASTY,SHOULDER REVERSE Right 12/17/2024 Procedure: ARTHROPLASTY, SHOULDER, TOTAL, REVERSE; Surgeon: Raúl Suh MD; Location: [facility]; Service: Orthopedic Surgery; Laterality: Right; Right reverse total shoulder arthroplasty ??? CHOLECYSTECTOMY ??? FOOT SURGERY 2019 Ankle fusion ??? NECK SURGERY cervical fusion ??? RELEASE,CARPAL TUNNEL Left 10/25/2024 Procedure: (LT RELEASE, CARPAL TUNNEL); Surgeon: Anshul Banks MD; Location: [facility]; Service: Neurological Surgery; Laterality: Left; ??? SHOULDER SURGERY Right ??? SPINE SURGERY 1993 Lumbar fusion ??? SPINE SURGERY 1997 Lumbar bone cage Family History Problem Relation Name Age of Onset ??? High blood pressure Mother ??? COPD Father ??? COPD Brother ??? Diabetes Brother ??? High blood pressure Other Social History Tobacco Use ??? Smoking status: Never ??? Smokeless tobacco: Never Substance Use Topics ??? Alcohol use: Never I reviewed the HPI, ROS and PFSH documentation recorded by others in the medical record and supplemented my note as needed. Review of Systems Review of Systems Physical Exam ED Triage Vitals Encounter Vitals Group BP Systolic BP Percentile Diastolic BP Percentile Pulse Resp Temp Temp src SpO2 Weight Height Head Circumference Peak Flow Pain Score Pain Loc Pain Education Exclude from Growth Chart Physical Exam Neurological Exam Ortho Exam PHYSICAL EXAM GENERAL: well developed. well nourished. No acute distress. HEENT: Normocephalic, atraumatic, PERRL, mucous membranes moist, airway patent. NECK: Neck supple, no tracheal deviation. HEART: Normal rate. Regular rhythm. No murmurs, gallops or rubs. LUNGS: Clear bilaterally with normal effort and good air movement. No wheezes, rales or rhonchi. EXTREMITIES: Anterior fullness of the right shoulder that is tender to palpation and with decreasedrange of motion. Distal pulses of the right upper extremity are intact SKIN: Warm, dry, well-perfused. No rashes. NEURO: Alert, awake, oriented to person/place/time/situation. Grossly nonfocal. ED Course & MDM Medications fentaNYL PF (SUBLIMAZE) injection 100 mcg (100 mcg intravenous Given 01/10/251834) ketamine (KETALAR) injection 104.3 mg (104.3 mg intravenous Given 01/10/25 183) ketamine (KETALAR) injection 100 mg (100 mg intravenous Given 01/10/25 184) ketamine (KETALAR) injection 50 mg (50 mg intravenous Given 01/10/251850) propofol (DIPRIVAN) injection 10 mg/mL bolus (50 mg intravenous Given 01/10/251850) fentaNYL PF (SUBLIMAZE) injection 100 mcg (100 mcg intravenous Given 01/10/25 190) Results for orders placed or performed during the hospital encounter of 12/17/24 Glucose, Nova Meter Result Value Ref Range POC-GLUCOSE 145 (H) 70 - 99 mg/dL Steel Plate Caulker [id number] Glucose, Nova Meter Result Value Ref Range POC-GLUCOSE 178 (H) 70 - 99 mg/dL Steel Plate Caulker [id number] Type and Screen Result Value Ref Range ABO/Rh O POSITIVE Antibody Screen NEGATIVE HISTCHK HIST CHECK PERFORMED ABO/RH Confirmation/Retype Result Value Ref Range RETYPE O POSITIVE Tissue Exam Result Value Ref Range AP RESULT See Note: XR shoulder 1 view right (Results Pending) XR shoulder complete 2 views min right (Results Pending) ED Course as of 01/10/251939Jan 10, [address] Suh who agreed that the patient could undergo procedural sedation and closed reduction of the right shoulder [DG] 1837 X-ray of the right shoulder shows a dislocation of the prosthesis as read and interpreted by me [DG] 1938 X-ray of the right shoulder confirms normal anatomical alignment as read and interpreted by teresa I confirmed this with the patient's orthopedist who looked at her x-rays [DG] ED Course User Index [DG] Sp Campa DO Procedures Medical Decision Making Amount and/or Complexity of Data Reviewed Radiology: ordered. Risk Prescription drug management. Moderate Sedation Date/Time: 01/10/2025 7:13 PM Performed by: Sp Campa DO Authorized by: Sp Campa DO Consent: Consent obtained: Verbal Risks discussed: Allergic reaction, prolonged hypoxia resulting in organ damage, prolonged sedationnecessitating reversal, dysrhythmia, inadequate sedation, respiratory compromise necessitating ventilatory assistance and intubation, nausea and vomiting Reva protocol: Patient identity confirmed: Verbally with patient and arm band Indications: Procedure performed: Dislocation reduction Procedure necessitating sedation performed by: Physician performing sedation Intended level of sedation: Moderate Pre-sedation assessment: ASA classification: class 2 - patient with mild systemic disease Pre-sedation assessments completed and reviewed: airway patency, anesthesia/sedation history, cardiovascular function, hydration status, mental status, nausea/vomiting, pain level, respiratory function and temperature History of difficult intubation: no Immediate pre-procedure details: Reviewed: vital signs, relevant labs/tests and NPO status Verified: bag valve mask available, emergency equipment available, intubation equipment available, IV patency confirmed, oxygen available, reversal medications available and suction available Procedure details (see MAR for exact dosages): Preoxygenation: Nasal cannula Sedation: Ketamine Analgesia: Fentanyl Intra-procedure monitoring: Blood pressure monitoring, court monitor, continuous pulse oximetry, continuous capnometry, frequent LOC assessments and frequent vital sign checks Intra-procedure events: hypoxia Intra-procedure management: Airway repositioning, supplemental oxygen and BVM ventilation Total sedation time (minutes): 22 Post-procedure details: Post-sedation assessments completed and reviewed: airway patency, cardiovascular function, hydration status, mental status, nausea/vomiting, pain level and respiratory function Specimens recovered: None Patient is stable for discharge or admission: yes Comments: Brief episode of hypoxia that resolved with supplemental oxygen and subsequently with an O2 sat of 100% Orthopedic Injury Treatment - Upper Extremity Date/Time: 01/10/2025 7:26 PM Performed by: Sp Campa DO Authorized by: Sp Campa DO Consent: Consent obtained: Verbal Consent given by: Patient Risks discussed: Fracture, nerve damage, restricted joint movement, vascular damage, stiffness, recurrent dislocation and irreducible dislocation Reva protocol: Patient identity confirmed: Verbally with patient and arm band Location: Location: Shoulder Shoulder location: R shoulder Shoulder dislocation type: anterior Pre-procedure details: Pre-procedure imaging: X-ray Imaging findings: dislocation present Fracture of greater humeral tuberosity: no Distal perfusion: normal Sedation: Sedation type: Moderate sedation Procedure details: Manipulation performed: yes Shoulder reduction method: Traction and counter traction Reduction successful: yes Reduction confirmed with imaging: yes Immobilization: Sling Supplies used: Sling Post-procedure details: Neurological function: normal Distal perfusion: normal Range of motion: improved Procedure completion: Tolerated well, no immediate complications Assessment & Plan Clinical Impression Diagnosis Comment Added By Time Added Anterior dislocation of right shoulder, initial encounter Sp Campa DO 01/10/2025 7:36 PM Disposition Discharge [1] - 01/10/2025 7:36 PM New Prescriptions OXYCODONE-ACETAMINOPHEN (PERCOCET) 5-325 MG PER TABLET Take 1 tablet by mouth every 6 (six) hours as needed for pain for up to 10 days Look-alike/Sound-alike medication. Max Daily Amount: 4 tablets Contact information for follow-up Raúl Suh MD Specialty: Orthopedic Surgery [address] [place] [id number] Next Steps: Follow up on 01/13/2025 Electronically Signed By Sp Campa DO 01/10/251938 documented in this encounter Plan of Treatment Upcoming Encounters Date Type Department Care Team (Late st Contact Info) Description 01/27/2025 12:30 PM EDT Office Visit [facility] - [address] [phone] Raúl Suh MD [address] [place] [phone] documented as of this encounter Procedures Procedure Name Priority Date/Time Associated Diagnosis Comments XR SHOULDER COMPLETE 2 VIEWS MIN RIGHT STAT 01/10/2025 7:22 PM EDT XR SHOULDER 1 VIEW RIGHT STAT 01/10/2025 6:36 PM EDT documented in this encounter Results * XR shoulder complete 2 views min right (01/10/2025 7:22 PM EDT) Anatomical Region Laterality Modality X-Ray 01/11/2025 12:4 3 PM EDT Impressions 01/11/2025 1:52 PM EDT Humeral component of the patient's reverse shoulder arthroplasty is superiorly dislocated. RIGHT SHOULDER HISTORY: Post reduction exam of reverse shoulder arthroplasty. FINDINGS: A three view exam demonstrates a reverse shoulder arthroplasty, post reduction. There is now appropriate alignment of the scapular and humeral components. No displaced fracture is identified. No soft tissue abnormality is seen. IMPRESSION: Postreduction films demonstrate appropriate alignment of the patient's reverse shoulder arthroplasty. No displaced fracture is identified. Images reviewed, interpreted, and dictated by Dr. Dominic Coe. Transcribed by Pia Lerma Narrative 01/11/2025 1:52 PM EDT RIGHT SHOULDER HISTORY: Dislocation. FINDINGS: A single view exam demonstrates a reverse shoulder arthroplasty. The humeral component is superiorly dislocated. No displaced fracture is identified. No soft tissue abnormality is seen . Procedure Note Dominic Coe, DO - 01/11/2025 RIGHT SHOULDER HISTORY: Dislocation. FINDINGS: A single view exam demonstrates a reverse shoulder arthroplasty. The humeral component is superiorly dislocated. No displaced fracture is identified. No soft tissue abnormality is seen . IMPRESSION: Humeral component of the patient's reverse shoulder arthroplasty is superiorly dislocated. RIGHT SHOULDER HISTORY: Post reduction exam of reverse shoulder arthroplasty. FINDINGS: A three view exam demonstrates a reverse shoulder arthroplasty, post reduction. There is now appropriate alignment of the scapular and humeral components. No displaced fracture is identified. No soft tissue abnormality is seen. IMPRESSION: Postreduction films demonstrate appropriate alignment of the patient's reverse shoulder arthroplasty. No displaced fracture is identified. Images reviewed, interpreted, and dictated by Dr. Dominic Coe. Transcribed by Pia Lerma Sp Campa DO IMG DIAGNOSTIC IMAGING ORDERABL ES Final Result * XR shoulder 1 view right (01/10/2025 6:36 PM EDT) Anatomical Region Laterality Modality Shoulder X-Ray 01/11/2025 12:4 3 PM EDT Impressions 01/11/2025 1:52 PM EDT Humeral component of the patient's reverse shoulder arthroplasty is superiorly dislocated. RIGHT SHOULDER HISTORY: Post reduction exam of reverse shoulder arthroplasty. FINDINGS: A three view exam demonstrates a reverse shoulder arthroplasty, post reduction. There is now appropriate alignment of the scapular and humeral components. No displaced fracture is identified. No soft tissue abnormality is seen. IMPRESSION: Postreduction films demonstrate appropriate alignment of the patient's reverse shoulder arthroplasty. No displaced fracture is identified. Images reviewed, interpreted, and dictated by Dr. Dominic Coe. Transcribed by Pia Lerma Narrative 01/11/2025 1:52 PM EDT RIGHT SHOULDER HISTORY: Dislocation. FINDINGS: A single view exam demonstrates a reverse shoulder arthroplasty. The humeral component is superiorly dislocated. No displaced fracture is identified. No soft tissue abnormality is seen . Procedure Note Dominic Coe DO - 01/11/2025 RIGHT SHOULDER HISTORY: Dislocation. FINDINGS: A single view exam demonstrates a reverse shoulder arthroplasty. The humeral component is superiorly dislocated. No displaced fracture is identified. No soft tissue abnormality is seen . IMPRESSION: Humeral component of the patient's reverse shoulder arthroplasty is superiorly dislocated. RIGHT SHOULDER HISTORY: Post reduction exam of reverse shoulder arthroplasty. FINDINGS: A three view exam demonstrates a reverse shoulder arthroplasty, post reduction. There is now appropriate alignment of the scapular and humeral components. No displaced fracture is identified. No soft tissue abnormality is seen. IMPRESSION: Postreduction films demonstrate appropriate alignment of the patient's reverse shoulder arthroplasty. No displaced fracture is identified. Images reviewed, interpreted, and dictated by Dr. Dominic Coe. Transcribed by Pia Lerma us Sp [facility]AG[facility] ORDERABL ES Final Result documented in this encounter Visit Diagnoses Diagnosis Anterior dislocation of right shoulder, initial encounter- Primary documented in this encounter Administered Medications Inactive Administered Medications - up to 3 most recent administrations Medication Order MAR Action Action Date Dose Rate Site fentaNYL PF (SUBLIMAZE) injection 100 mcg 100 mcg Once, intravenous, On Mon01/10/25 at 1825, For 1 dose Given 01/10/2025 6:35 PM EDT 100 mcg fentaNYL PF (SUBLIMAZE) injection 100 mcg 100 mcg Once, intravenous, On Mon01/10/25 at 1910, For 1 dose Given 01/10/2025 7:07 PM EDT 100 mcg ketamine (KETALAR) injection 100 mg 100 mg Once, intravenous, On Mon01/10/25 at 1905, For 1 dose, Look-alike/Sound-alike medication Given 01/10/2025 6:46 PM EDT 100 mg ketamine (KETALAR) injection 104.3 mg 104.3 mg Once (1 mg/kg 104.3 kg), intravenous, On Mon01/10/25 at 1835, For 1 dose, Look-alike/Sound-alike medication Given 01/10/2025 6:38 PM EDT 104.3 mg ketamine (KETALAR) injection 50 mg 50 mg Once, intravenous, On Mon01/10/25 at 1905, For 1 dose, Look-alike/Sound-alike medication Given 01/10/2025 6:51 PM EDT 50 mg oxyCODONE-acetaminophen (PERCOCET) 5-325 mg per tablet 1 tablet 1 tablet Once, oral, On Mon01/10/25 at 2050, For 1 dose, Recommended maximum dose of acetaminophen is 4000 mg from all sources in 24 hours Look-alike/Sound-alike medication Given 01/10/2025 8:56 PM EDT 1 tablet propofoL (DIPRIVAN) injection 10 mg/mL ADS Med Starting on Mon01/10/25 at 1852, For 1 dose, Created by cabinet override Shake well before use; protect from light. *DISCARD VIAL & TUBING AFTER 12 HOURS* propofol (DIPRIVAN) injection 10 mg/mL bolus 50 mg Once, intravenous, On Mon01/10/25 at 1905, For 1 dose Given 01/10/2025 6:51 PM EDT 50 mg documented in this encounter Active and Recently Administered Medications Times are shown in EDT. Scheduled Medication Order 01/08/2025 01/09/2025 01/10/2025 fentaNYL PF (SUBLIMAZE) injection 100 mcg (COMPLETED) 100 mcg Once, intravenous, On Mon01/10/25 at 1825, For 1 dose 183 (Given - Provid er: Lisa Araujo RN) fentaNYL PF (SUBLIMAZE) injection 100 mcg (COMPLETED) 100 mcg Once, intravenous, On Mon01/10/25 at 1910, For 1 dose 1906 (Given - Provid er: Lisa Araujo RN) ketamine (KETALAR) injection 100 mg (COMPLETED) 100 mg Once, intravenous, On Mon01/10/25 at 1905, For 1 dose, Look-alike/Sound-alike medication 184 (Given - Provid er: Lisa Araujo RN) ketamine (KETALAR) injection 104.3 mg (COMPLETED) 104.3 mg Once (1 mg/kg 104.3 kg), intravenous, On Mon01/10/25 at 1835, For 1 dose, Look-alike/Sound-alike medication 183 (Given - Provid er: Lisa Araujo RN) ketamine (KETALAR) injection 50 mg (COMPLETED) 50 mg Once, intravenous, On Mon01/10/25 at 1905, For 1 dose, Look-alike/Sound-alike medication 1850 (Given - Provid er: Lisa Araujo RN) oxyCODONE-acetaminophen (PERCOCET) 5-325 mg per tablet 1 tablet (COMPLETED) 1 tablet Once, oral, On Mon01/10/25 at 2049, For 1 dose, Recommended maximum dose of acetaminophen is 4000 mg from all sources in 24 hours Look-alike/Sound-alike medication 2055 (Given - Provid er: Lisa Araujo RN) propofol (DIPRIVAN) injection 10 mg/mL bolus (COMPLETED) 50 mg Once, intravenous, On Mon01/10/25 at 1905, For 1 dose 1850 (Given - Provid er: Lisa Araujo RN - Comment: admns by MD at bedside)1904 (Due) documented in this encounter Additional Health Concerns Infection Onset Date Last Indicated Resolved Time 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
[2025-01-12] VITALS (22 sets, daily range): BP systolic 112–165; BP diastolic 69–114; PULSE 81–109; RESP 12–27; TEMP 36.2–36.8; O2SAT 95–100; BMI 39.4
--- OUTSIDE RECORDS SUMMARY | 2025-01-12 15:46 | XMS_ITS | Encounter Summary ---
Author Organization [employer] ([place], [place], [place], [place]) Address [address] [place] [address] Care Team Providers Care Ballpoint Pen Cartridge Tester Name Role Phone Dominic Oliva PA-C Unavailable [phone] Abhishek Griggs MD Primary Care Provider + [phone] Reason for Visit * Reason Onset Date Comments Medication 12/19/2024 Encounter Details Date Type Department Care Team (Late st Contact Info) Description 12/19/2024 Telephone [facility] - [address] [place] [address] Raúl Suh MD [address] [place] [phone] Medication Social History Tobacco Use Types Packs/Day Years [...] Date Francis rded Speak language other than Japanese at home Not on file 06/09/2023 Want [...] on file documented as of this encounter Miscellaneous Notes * Telephone Encounter - Deborah Eisenberg - 12/19/2024 2:32 PM EDT Patient called in regards to the medication she is taking. Patient is taking medications as prescribed but is still having a lot of pain. Patient is using the ice machine as well. Patient wanted to see what recommendations you had when taking the medicine, if she should take a extra Tramadol or add in regular Tylenol as well. documented in this encounter Plan of Treatment Upcoming Encounters Date Type Department Care Team (Late st Contact Info) Description 01/27/2025 12:30 PM EDT Office Visit [facility] - [address] [phone] Raúl Suh MD [address] [place] [phone] documented as of this encounter Visit Diagnoses Not on filedocumented in this encounter Additional Health Concerns Infection Onset Date Last Indicated Resolved Time MRSA (C) 11/21/2024 11/21/2024 documented as of this encounter Care Teams Ballpoint Pen Cartridge Tester Relationship Specialty Start Date End Date Abhishek Griggs MD [address] [place] [address] PCP - General Adolescent Medicine 10/25/24 Dominic Oliva PA-C [address] [place] [address] Physician Spinning Operator 10/01/24 documented as of this encounter
--- OUTSIDE RECORDS SUMMARY | 2025-01-12 15:46 | XMS_ITS | Encounter Summary ---
Author Organization [employer] ([place], [place], [place], [place]) Address [address] [place] [address] Care Team Providers Care Automobile Or Truck Rental Dispatcher Name Role Phone Dominic Oliva PA-C Unavailable [phone] Abhishek Griggs MD Primary Care Provider + [phone] Encounter Details Date Type Department Care Team (Latest Contact Info) Description 01/10/2025 Travel Social History Tobacco Use Types Packs/Day [...] Date Francis rded Speak language other than Stateless at home Not on file 06/09/2023 Want [...] Description 01/27/2025 12:30 PM EDT Office Visit [facility] - [address] [address] Raúl Suh MD [address] [place] [phone] documented as of this encounter Visit Diagnoses Not on filedocumented in this encounter Additional Health Concerns Infection Onset Date Last Indicated Resolved Time MRSA (C) 11/21/2024 11/21/2024 documented as of this encounter Care Teams Automobile Or Truck Rental Dispatcher Relationship Specialty Start Date End Date Abhishek Griggs MD [address] [place] [address] PCP - General Adolescent Medicine 10/25/24 Dominic Oliva PA-C [address] [place] [address] Physician Card Checker 10/01/24 documented as of this encounter
--- OUTSIDE RECORDS SUMMARY | 2025-01-12 15:46 | XMS_ITS | Encounter Summary ---
Author Organization [employer] ([place], [place], [place], [place]) Address [address] [place] [address] Care Team Providers Care Lacquer Sizer Name Role Phone Dominic Oliva PA-C Unavailable [phone] Abhishek Griggs MD Primary Care Provider + [phone] Encounter Details Date Type Department Care Team (Late st Contact Info) Description 12/18/2024 Orders Only [facility] - [address] [facility] [address] [place] [address] Provider, MD Jaylyn [facility] [place] [id number] Social History Tobacco Use Types Packs/Day Years [...] Date Francis rded Speak language other than Bengali at home Not on file 06/09/2023 Want [...] Description 01/27/2025 12:30 PM EDT Office Visit [facility] Orthopedics - [address] [address] Raúl Suh MD [address] [place] [address] documented as of this encounter Procedures Procedure Name Priority Date/Time Associated Diagnosis Comments EMG W/NCS Routine 08/20/2024 10:52 AM EDT documented in this encounter Results * EMG W/ NCS (08/20/2024 10:52 AM EDT) Anatomical Region Laterality Modality Other us Historical Provider NEUROLOGY ORDERABLES ([facility]CT ) Final Result documented in this encounter Visit Diagnoses Not on filedocumented in this encounter Additional Health Concerns Infection Onset Date Last Indicated Resolved Time MRSA (C) 11/21/2024 11/21/2024 documented as of this encounter Care Teams Lacquer Sizer Relationship Specialty Start Date End Date Abhishek Griggs MD [address] [place] [address] PCP - General Adolescent Medicine 10/25/24 Dominic Oliva PA-C [address] [place] [address] Physician Sea Foam Kiss Maker 10/01/24 documented as of this encounter
--- OUTSIDE RECORDS SUMMARY | 2025-01-12 15:46 | XMS_ITS | Encounter Summary ---
Author Organization [employer] ([place], [place], [place], [place]) Address [address] [place] [address] Care Team Providers Care Government Operations Consultant Name Role Phone Dominic Oliva PA-C Unavailable [phone] Abhishek Griggs MD Primary Care Provider + [phone] Encounter Details Date Type Department Care Team (Latest Contact Info) Description 12/17/2024 Travel Social History Tobacco Use Types Packs/Day [...] Date Francis rded Speak language other than [place] at home Not on file 06/09/2023 Want [...] Office Visit [facility] Orthopedics - [address] [address] Raúl Suh MD [address] [place] [address] documented as of this encounter Visit Diagnoses Not on filedocumented in this encounter Additional Health Concerns Infection Onset Date Last Indicated Resolved Time MRSA (C) 11/21/2024 11/21/2024 documented as of this encounter Care Teams Government Operations Consultant Relationship Specialty Start Date End Date Abhishek Griggs MD [address] [place] [address] PCP - General Adolescent Medicine 10/25/24 Dominic Oliva PA-C [address] [place] [address] Physician Folder Stitcher Operator 10/01/24 documented as of this encounter
--- OUTSIDE RECORDS SUMMARY | 2025-01-12 15:46 | XMS_ITS | Encounter Summary ---
Author Organization [employer] ([place], [place], [place], [place]) Address [address] [place] [address] Care Team Providers Care Mechanic'S Assistant Name Role Phone Dominic Oliva PA-C Unavailable [phone] Abhishek Griggs MD Primary Care Provider + [phone] Encounter Details Date Type Department Care Team (Late st Contact Info) Description 11/14/2024 Orders Only [facility] Orthopedics - [address] [place] [address] Dominic Oliva PA-C [address] [place], [place] [phone] Internal derangement of right shoulder; History of arthroscopic surgery of right shoulder; Partial tear of right supraspinatus tendon Social History Tobacco Use Types Packs/Day Years [...] Date Francis rded Speak language other than [place] at home Not on file 06/09/2023 Want [...] Description 01/27/2025 12:30 PM EDT Office Visit [facility] Orthopedics - [address] [address] Raúl Suh MD [address] [place] [address] documented as of this encounter Visit Diagnoses Diagnosis Internal derangement of right shoulder History of arthroscopic surgery of right shoulder Partial tear of right supraspinatus tendon documented in this encounter Care Teams Mechanic'S Assistant Relationship Specialty Start Date End Date Abhishek Griggs MD [address] [place] [address] PCP - General Adolescent Medicine 10/25/24 Dominic Oliva PA-C [address] [place] [address] Physician Technical Data Analyst 10/01/24 documented as of this encounter
--- OUTSIDE RECORDS SUMMARY | 2025-01-12 15:46 | XMS_ITS | Encounter Summary ---
Author Organization [employer] ([place], [place], [place], [place]) Address [address] [place] [address] Care Team Providers Care Agribusiness Professor Name Role Phone Dominic Oliva PA-C Unavailable [phone] Abhishek Griggs MD Primary Care Provider + [phone] Encounter Details Date Type Department Care Team (Latest Contact Info) Description 11/21/2024 Travel Social History Tobacco Use Types Packs/Day [...] Date Francis rded Speak language other than Peruvian at home Not on file 06/09/2023 Want [...] [facility] Orthopedics - [address] [address] Raúl Suh MD [address] [place] [address] documented as of this encounter Visit Diagnoses Not on filedocumented in this encounter Additional Health Concerns Infection Onset Date Last Indicated Resolved Time MRSA (C) 11/21/2024 11/21/2024 documented as of this encounter Care Teams Agribusiness Professor Relationship Specialty Start Date End Date Abhishek Griggs MD [address] [place] [address] PCP - General Adolescent Medicine 10/25/24 Dominic Oliva PA-C [address] [place] [address] Physician Switcher 10/01/24 documented as of this encounter
--- OUTSIDE RECORDS SUMMARY | 2025-01-12 15:46 | XMS_ITS ---
Author Organization [facility] Address [address] [place] [address] Care Team Providers Care Machinist Outside Name Role Phone Shikha Grimm APRN Primary Care Provid er Rheumatology - External Fill Status:Enrolled (Active) Start date:12/07/2023 Enrollment date:12/07/2023 Enrollment reason:Identified as being on target medication Current support & services provided:Benefits Investigation, External Pharmacy Dispensing Linked medications:Etanercept (Active) Linked problems:Rheumatoid arthritis (Active) Overview Enbrel- [facility] (payer restriction) Case Team Name Relationship Phone Jeanne Romero Scouring Train Operator Chief Patient Ca re Design Chief Luis Cornejo Scouring Train Operator Chief Design Chief Beka White PharmD Pharmacist [phone] Continued Care and Services Coordination
--- NOTE | 2025-01-12 15:48 | XR_ITS ---
PROCEDURE INFORMATION: Exam: XR Right Shoulder Exam date and time: 01/12/2025 4:08 PM Age: 59 years old Clinical indication: Pain; Right; Prior surgery; Surgery date: 1-6 months; Surgery type: Shoulder rep; Additional info: Concern for dislocation TECHNIQUE: Imaging protocol: Radiologic exam of the right shoulder. Views: 2 or more views. 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 The humeral prosthesis is superior to the glenoid. 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 The humeral prosthesis is superior to the glenoid.
--- OUTSIDE RECORDS SUMMARY | 2025-01-12 15:48 | XMS_ITS | Encounter Summary ---
Author Organization [employer] ([place], [place], [place], [place]) Address [address] [place] [address] Care Team Providers Care Wood Craftsman Name Role Phone Dominic Oliva PA-C Unavailable [phone] Abhishek Griggs MD Primary Care Provider + [phone] Encounter Details Date Type Department Care Team (Late st Contact Info) Description 12/10/2024 Orders Only [facility] Orthopedics - [address] [address] Raúl Suh MD [address] [place] [address] MRSA nasal colonization (Primary Dx) Social History Tobacco Use Types [...] Date Francis rded Speak language other than Argentine at home Not on file 06/09/2023 Want [...] Description 01/27/2025 12:30 PM EDT Office Visit [facility] Orthopedics - [address] [address] Raúl Suh MD [address] [place] [address] documented as of this encounter Visit Diagnoses Diagnosis 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
--- OUTSIDE RECORDS SUMMARY | 2025-01-12 15:49 | XMS_ITS | Referral Summary ---
Author Organization [employer] ([place], [place], [place], [place]) Address [address] [place] [address] Care Team Providers Care Surgical Supervisor Name Role Phone Dominic Oliva PA-C Unavailable Abhishek Griggs MD Primary Care Provider + [phone] Encounters Date Type Department Care Team Description 01/10/2025 Travel 01/10/2025 6:17 PM EDT - 01/10/2025 9:01 PM EDT Emergency [facility] Emergency Department [address] [place] [address] Sp Campa DO Anterior dislocation of right shoulder, initial encounter (Primary Dx) Discharge Disposition: Home or Self Care 12/30/2024 9:30 AM EDT Ancillary Procedure [facility] [address] [phone] Raúl Suh MD 12/30/2024 9:15 AM EDT Office Visit [facility] [address] [phone] Raúl Suh MD S/P reverse total shoulder arthroplasty, right (Primary Dx) 12/19/2024 Telephone [facility] Orthopedics - [address] [place] [place] [address] Raúl Suh MD Medication 12/18/2024 Orders Only [facility] Neurology - [facility] [address] [phone] Provider, MD Jaylyn 12/17/2024 Travel 12/17/2024 11:06 AM EDT Anesthesia Event [facility] Operating Room [address] [place] [phone] Braydon MargaretPOLY 12/17/2024 11:15 AM EDT - 12/17/2024 1:13 PM EDT Surgery [facility] Operating Room [address] [place], [place] [phone] Raúl Suh MD ARTHROPLASTY, SHOULDER, TOTAL, REVERSE 12/17/2024 8:29 AM EDT - 12/17/2024 3:42 PM EDT Hospital Encounter [facility] Operating Room [address] [place], [place] [phone] Raúl Suh MD Rotator cuff arthropathy of right shoulder Discharge Disposition: Home or Self Care 12/10/2024 Orders Only [facility] Orthopedics - [address] [address] Raúl Suh MD MRSA nasal colonization (Primary Dx) 11/21/2024 Travel 11/21/2024 10:18 AM EDT - 11/21/2024 11:59 PM EDT Hospital Encounter [facility] Respiratory Care [address] [place], [place] [phone] Raúl Suh MD Full Thickness tear of right supraspinatus tendon; Osteoarthritis of glenohumeral joint, right; Pre-op testing Discharge Disposition: Home or Self Care 11/21/2024 10:30 AM EDT Lab Patient Walk-In [facility] Lab [address] [place] [phone] Raúl Suh MD Full Thickness tear of right supraspinatus tendon; Osteoarthritis of glenohumeral joint, right; Pre-op testing 11/21/2024 10:18 AM EDT - 11/21/2024 11:59 PM EDT Hospital Encounter [facility] CT Imaging [address] [place] [phone] Raúl Suh MD Full Thickness tear of right supraspinatus tendon; Osteoarthritis of glenohumeral joint, right; Pre-op testing Discharge Disposition: Home or Self Care 11/21/2024 10:15 AM EDT - 11/21/2024 10:17 AM EDT Hospital Encounter [facility] Diagnostic Imaging [address] [place] [address] Raúl Suh MD Full Thickness tear of right supraspinatus tendon; Osteoarthritis of glenohumeral joint, right; Pre-op testing Discharge Disposition: Home or Self Care 11/21/2024 9:15 AM EDT Office Visit [facility] Orthopedics [facility] [address] [place] [address] Raúl Suh MD Full Thickness tear of right supraspinatus tendon (Primary Dx); Full thickness infraspinatus tendon tear, right; Partial tear subscapularis tendon, right, initial encounter; Partial tear of biceps tendon, Right; Osteoarthritis of AC (acromioclavicular) joint, Right; Osteoarthritis of glenohumeral joint, right; Rotator cuff arthropathy of right shoulder; Pre-op testing 11/19/2024 10:00 AM EDT Office Visit [facility] Orthopedics - [address] [place] [place] [address] Dominic Oliva PA-C Full Thickness tear of right supraspinatus tendon (Primary Dx); Full thickness infraspinatus tendon tear, right; Partial tear subscapularis tendon, right, initial encounter; Partial tear of biceps tendon, Right; Osteoarthritis of AC (acromioclavicular) joint, Right; Osteoarthritis of glenohumeral joint, right 11/14/2024 Orders Only [facility] Orth[facility] [address] [place] [address] Dominic Oliva PA-C Internal derangement of right shoulder; History of arthroscopic surgery of right shoulder; Partial tear of right supraspinatus tendon 10/25/2024 1:47 PM EDT Anesthesia Event [facility] Operating Room [address] [place] [address] Rogelio Weldon MD Harter, Adam 10/25/2024 Travel 10/25/2024 1:45 PM EDT - 10/25/2024 3:00 PM EDT Surgery [facility] Operating Room [address] [place] [address] Anshul Banks MD (LT RELEASE, CARPAL TUNNEL) 10/25/2024 9:35 AM EDT - 10/25/2024 3:30 PM EDT Hospital Encounter [facility] Operating Room [address] [place] [address] Anshul Banks MD Discharge Disposition: Home or Self Care 10/22/2024 2:42 PM EDT - 10/22/2024 11:59 PM EDT Hospital Encounter [facility] [address] [facility] [address] [place] [address] Dominic Oliva PA-C Right arm pain Discharge Disposition: Home or Self Care 10/22/2024 2:15 PM EDT Office Visit [facility] Orthopedics - [facility] [address] [place] [address] Dominic Oliva PA-C Right arm pain (Primary Dx); Internal derangement of right shoulder; History of arthroscopic surgery of right shoulder; Partial tear of right supraspinatus tendon; Right shoulder pain from Last 3 Months Allergies Active Allergy Reactions Criticality Noted Date Comments Rosuvastatin Nausea And Vomiting 12/10/2024 Atorvastatin Nausea And Vomiting 12/10/2024 Penicillins Rash High 07/13/2022 Other reaction(s): Hives Medications losartan (COZAAR) 50 MG tablet Take 1 tablet (50 mg total) by mouth daily. Active leflunomide (ARAVA) 20 MG tablet Take 1 tablet (20 mg total) by mouth daily. Active Jardiance 25 mg tablet Take 1 tablet (25 mg total) by mouth every morning. 023 Active dilTIAZem (DILACOR XR) 120 MG 24 [...] (40 mg total) by mouth daily. Active hydroCHLOROthia zide (HYDRODIURIL) 12.5 MG tablet Take 1 tablet (12.5 mg total) by mouth daily. Active gabapentin (NEURONTIN) 400 MG capsule Take 2 capsules (800 mg total) by mouth 2 (two) times daily. Active Trulicity 4.5 mg/0.5 mL syringe Inject [...] (5 mg total) by mouth daily. Active celecoxib (CeleBREX) 200 MG capsule Take 1 capsule (200 mg total) by mouth daily for 30 days. 30 capsule 2024 Active oxyCODONE-aceta minophen (PERCOCET) 5-325 mg per tablet Take 1 tablet by mouth every 6 (six) hours as needed for pain for up to 10 days Look-alike/Soun d-alike medication. Max Daily Amount: 4 tablets 12 tablet 2024 Active Xarelto 20 mg tablet SMARTSI Tablet(s) By Mouth Every Evening 2024 Discontinued HYDROcodone-stephanie taminophen (NORCO 7.5-325) 7.5-325 mg per tablet Take 1 tablet by mouth 4 (four) times daily as needed. 024 2024 Discontinued(S top Taking at Discharge) mupirocin (BACTROBAN) 2 % ointmentIndicat ions:methicilli n-resistant S. aureus nasal colonization Apply 1 Application topically 2 (two) times daily for 5 days Apply twice daily into each nostril. 30 g 025 2024 Xarelto 20 mg tablet Take 0.5 tablets (10 mg total) by mouth daily with breakfast for 14 days. 7 tablet 025 2024 HYDROcodone-stephanie taminophen (NORCO) 10-325 mg per tablet Take 1 tablet by mouth every 6 (six) hours as needed for pain for up to 7 days. Max Daily Amount: 4 tablets 28 tablet 025 2024 traMADoL (ULTRAM) 50 mg tablet Take 1 tablet (50 mg total) by mouth 2 (two) times daily for 7 days. Max Daily Amount: 100 mg 14 tablet 025 2024 cefadroxil (DURICEF) 500 MG capsule Take 1 capsule (500 mg total) by mouth 2 (two) times daily for 7 days. 14 capsule 025 2024 Active Problems Problem Noted Date Diagnosed Date Osteoarthritis of glenohumeral joint, right 07/2024 Osteoarthritis of AC (acromioclavicular) joint, Right 11/21/2024 Partial tear of biceps tendon, Right 11/21/2024 Partial tear subscapularis tendon, right, initia l encounter 11/21/2024 Full Thickness tear of right supraspinatus tendo n 11/21/2024 Full thickness infraspinatus tendon tear, right 11/21/2024 Rotator cuff arthropathy of right shoulder 11/21 Atrial fibrillation Diabetes Fibromyalgia Hypertension Rheumatoid arthritis [...] Date Francis rded Speak language other than Khmer at home Not on file 06/09/2023 Want [...] 01/10/2025 8:00 PM EDT Inhaled Oxygen Concentration 100% 12/17/2024 1 2:40 PM EDT Weight 104.3 kg (230 lb) 01/10/2025 6:33 PM EDT Height 170.2 cm (5' 7 ) 01/10/2025 6:33 PM EDT Body Mass Index 36.02 01/10/2025 6:33 PM EDT Plan of Treatment Upcoming Encounters Date Type Department Care Team (Late st Contact Info) Description 01/27/2025 12:30 PM EDT Office Visit [facility] Orthopedics - [address] [address] Raúl Suh MD [address] [place] [id number] Medical Devices Implanted Type Area Steam Boiler Fireman Device Identifier Shelf Expiration Date Model / Serial / Lot Glenosphere Std 36mm [id number] - [id number] Implanted:Qty: 1 on 12/17/2024 by Raúl Suh MD at [facility] IMPLANTS Right: Shoulder TORNIER [id number] 12/31/2028 [id number] / [id number] / Baseplt Lat +3mm 25mm [id number] - [id number] Implanted:Qty: 1 on 12/17/2024 by Raúl Suh MD at [facility] IMPLANTS Right: Shoulder TORNIER [id number] 08/08/2029 [id number] / [id number] / Insrt Rev Perf Hum Sys Sz 3/4 [id number] - [id number] Implanted:Qty: 1 on 12/17/2024 by Raúl Suh MD at [facility] IMPLANTS Right: Shoulder TORNIER [id number] 09/10/2027 [id number] / [id number] / Stem Hum Perf Sys Dz 3+ Ln Dwx3pl - [id number] Implanted:Qty: 1 on 12/17/2024 by Raúl Suh MD at [facility] IMPLANTS Right: Shoulder TORNIER [id number] 07/15/2029 [id number] / [id number] / Scr Cntrl Thd Post 6.5x30mm [id number] - [id number] Implanted:Qty: 1 on 12/17/2024 by Raúl Suh MD at [facility] IMPLANTS Right: Shoulder TORNIER [id number] / / Scr Periph 5.0x18mm Ns [id number] - [id number] Implanted:Qty: 1 on 12/17/2024 by Raúl Suh MD at [facility] IMPLANTS Right: Shoulder TORNIER [id number] / / Scr Periph 5.0x22mm Ns [id number] - [id number] Implanted:Qty: 2 on 12/17/2024 by Raúl Suh MD at [facility] IMPLANTS Right: Shoulder TORNIER [id number] / / Scr Periph 5.0x26mm Ns [id number] - [id number] Implanted:Qty: 1 on 12/17/2024 by Raúl Suh MD at [facility] IMPLANTS Right: Shoulder TORNIER [id number] / / Ankle Fusion Left: Ankle Procedures Procedure Name Priority Date/Time Associated Diagnosis Comments XR SHOULDER COMPLETE 2 VIEWS MIN RIGHT STAT 01/10/2025 7:22 PM EDT XR SHOULDER 1 VIEW RIGHT STAT 01/10/2025 6:36 PM EDT XR SHOULDER COMPLETE 2 VIEWS MIN RIGHT Routine 12/30/2024 9:32 AM EDT S/P reverse total shoulder arthroplasty, right XR SHOULDER 1 VIEW RIGHT STAT 12/17/2024 1:00 PM EDT NOVA GLUCOSE POC Routine 12/17/2024 12:41 PM EDT ANESTHESIA INTUBATION Routine 12/17/2024 11:13 AM EDT CO ARTHROPLASTY GLENOHUMERAL JOINT TOTAL SHOULDER 12/17/2024 11:06 AM EDT Rotator cuff arthropathy of right shoulder Case Notes 0900Vanc in preop Special Needs MRSA screening positive-Vanc to be given preop TISSUE EXAM (KETAN ALCANTARA) AP Routine 12/17/2024 10:48 AM EDT Rotator cuff arthropathy of right shoulder HC PERIPHERAL NERVE BLOCK SINGLE SHOT Routine 12/17/2024 10:05 AM EDT NOVA GLUCOSE POC Routine 12/17/2024 9:07 AM EDT ABO/RH CONFIRMATION/RETYPE ([place] BKR) STAT 12/17/2024 8:58 AM EDT TYPE AND SCREEN ([place] BKR) STAT 12/17/2024 8:[address] UPPER EXTREMITY WITHOUT IV CONTRAST RIGHT Routine 11/21/2024 10:44 AM EDT Full Thickness tear of right supraspinatus tendon Osteoarthritis of glenohumeral joint, right Pre-op testing [id number] 12-LEAD Routine 11/21/2024 10:34 AM EDT Full Thickness tear of right supraspinatus tendon Osteoarthritis of glenohumeral joint, right Pre-op testing XR CHEST 2 VIEWS Routine 11/21/2024 10:33 AM EDT Full Thickness tear of right supraspinatus tendon Osteoarthritis of glenohumeral joint, right Pre-op testing MANUAL DIFFERENTIAL Routine 11/21/2024 10:31 AM EDT Full Thickness tear of right supraspinatus tendon Osteoarthritis of glenohumeral joint, right Pre-op testing COMPREHENSIVE METABOLIC PANEL Routine 11/21/2024 10:31 AM EDT Full Thickness tear of right supraspinatus tendon Osteoarthritis of glenohumeral joint, right Pre-op testing CBC W/ AUTO DIFF Routine 11/21/2024 10:31 AM EDT Full Thickness tear of right supraspinatus tendon Osteoarthritis of glenohumeral joint, right Pre-op testing MRSA SCREEN Routine 11/21/2024 10:31 AM EDT Full Thickness tear of right supraspinatus tendon Osteoarthritis of glenohumeral joint, right Pre-op testing NOVA GLUCOSE POC Routine 10/25/2024 2:47 PM EDT CO NEUROPLASTY &/TRANSPOS MEDIAN NRV CARPAL TUNNE 10/25/2024 1:47 PM EDT Carpal tunnel syndrome Case Notes IN 1000, 30 MIN (A) CHI NEURO CASE NOVA GLUCOSE POC Routine 10/25/2024 11:03 AM EDT BASIC METABOLIC PANEL Routine 10/25/2024 11:00 AM EDT CBC W/ AUTO DIFF Routine 10/25/2024 11:00 AM EDT US EXTREMITY NON-VASCULAR LIMITED RIGHT Routine 10/23/2024 7:57 AM EDT Right shoulder pain XR SHOULDER COMPLETE 2 VIEWS MIN RIGHT Routine 10/22/2024 2:55 PM EDT Right arm pain from Last 3 Months Results * XR shoulder complete 2 views min right (01/10/2025 7:22 PM EDT) Only the most recent of3 resultswithin the time period is included. Anatomical Region Laterality Modality X-Ray 01/11/2025 12:4 [...] Transcribed by Pia Lerma Sp Campa DO [facility] DIAGNOSTIC IMAGING ORDERABL ES Final Result * XR shoulder 1 view right (01/10/2025 6:36 PM EDT) Only the most recent of2 resultswithin the time period is included. Anatomical Region Laterality Modality Shoulder X-Ray 01/11/2025 [...] Transcribed by Pia Lerma Sp Campa DO IM DIAGNOSTIC IMAGING ORDERABL ES Final Result * (ABNORMAL) Glucose, Nova Meter (12/17/2024 12:41 PM EDT) Only the most recent of4 resultswithin the time period is included. POC-GLUCOSE 178(H) 70 - 99 mg/dL 12/17/2024 12:42 PM EDT [facility] Comment: In the event of poor peripheral blood flow, venous or arterial blood should be used due to the potential of erroneous results. Notified Nurse RBV Financial Operations Consultant [phone] 12/17/2024 12:42 PM EDT [facility] Blood WHOLE BLOOD / Unknown 12/17/2024 12:41 PM EDT 12/17/2024 12:42 PM EDT Narrative [facility] - 12/17/2024 12:42 PM EDT Financial Operations Consultant ID is - [id number] us Raúl Suh MD POINT OF CARE TEST ORDERABLES Final Result Performing Organization Address City/State/[facility] Co de Phone Number [facility] [address] [place] [address] * AN SINGLE LUMEN INTUBATION (12/17/2024 11:13 [...] 22 Number of attempts at approach: 1 Margaret Bryson CRNA ANESTHESIA ORDERABLES Final Result * Tissue Exam (12/17/2024 10:48 AM EDT) AP RESULT See Note: PATHOLOGY AND CYTOLOGY LABORATORY Comment: PATHOLOGY REPORT DIAGNOSIS: A. HUMERAL HEAD, RIGHT GROSS ONLY: GROSS DIAGNOSIS: Changes consistent with [id number] osteoarthritis. Final Reviewed, Diagnosed and Electronically Signed [...] / Unknown 12/17/2024 1 0:48 AM EDT us Raúl Suh MD PATHOLOGY/CYTOLOGY ORDERABLES Final Result [facility] [address] [place] [address] * HC PERIPHERAL NERVE BLOCK SINGLE SHOT (12/17/2024 10:05 AM EDT) Narrative Dorinda Soria DO - 12/17/2024 10:05 AM EDT Dorinda [...] supine Prep: ChloraPrep Patient monitoring: heart rate, supervisor printing and stamping and continuous pulse ox Block type: interscalene [...] rate change: no Slow fractionated injection: yes us Dorinda Soria DO ANESTHESIA ORDERABLES Fin al Result * ABO/RH Confirmation/Retype (12/17/2024 8:58 AM EDT) RETYPE O POSITIVE 12/17/2024 8:59 AM EDT [facility] ([place]) Blood Venipuncture / Unknown 12/17/2024 8:58 AM EDT 12/17/2024 8:58 AM EDT us Raúl Suh MD [facility] TEST ORDERABLE S Final Result [facility] ([place]) [address] [place] [address], [facility] [phone] * Type and Screen (12/17/2024 8:50 AM EDT) ABO/Rh O POSITIVE 12/17/2024 8:34 AM EDT [facility] ([place]) Antibody Screen NEGATIVE 12/17/2024 8:34 AM EDT [facility] ([place]) HISTCHK HIST CHECK PERFORMED 12/17/2024 8:34 AM EDT [facility] ([place]) Blood Venipuncture / Unknown 12/17/2024 8:50 AM EDT 12/17/2024 9:08 AM EDT us Raúl Suh MD [facility] TEST ORDERABLE S Edited Result - Final [facility] ([place]) [address] [place] [address], [facility] [phone] * CT upper extremity without contrast right [...] ATRIAL RATE (MCT) 76 BPM GE MUSE CO Interval 156 ms GE MUSE QRS-INTERVAL (MSEC) 92 ms GE MUSE QT Interval 396 ms GE MUSE QTC Interval 445 ms GE MUSE P [place] 40 degrees GE MUSE R AXIS (MCT) 56 degrees GE MUSE T Wave [place] 55 degrees GE MUSE [place] Diagnosis Normal sinus rhythm Nonspecific ST and [...] Dr. Elijah Russo. Transcribed by Jazmyne Prabhakar us Raúl Suh MD IMG DIAGNOSTIC IMAGING ORDERA BLES Final Result * (ABNORMAL) CBC with automated diff (11/21/2024 10:31 AM EDT) Only the most recent of2 resultswithin the time period is included. WBC 8.9 4.8 - 10.8 K/ L 11/21/2024 10:56 AM EDT [facility] RBC 5.06 3.50 - 5.20 M/ L 11/21/2024 10:56 AM EDT [facility] Hemoglobin 14.4 11.7 - 15.8 GM/DL 11/21/2024 10:56 AM EDT [facility] Hematocrit 43.3 35.0 - 47.0 % 11/21/2024 10:56 AM EDT [facility] MCV 86 81 - 101 fL 11/21/2024 10:56 AM EDT [facility] MCH 28.5 27.0 - 34.0 pg 11/21/2024 10:56 AM EDT [facility] MCHC 33.3 32.0 - 36.0 GM/DL 11/21/2024 10:56 AM EDT [facility] RDW 13.9 11.5 - 14.5 % 11/21/2024 10:56 AM EDT [facility] Platelets 256 150 - 400 K/CU MM 11/21/2024 10:56 AM EDT [facility] MPV 8.6(L) 9.4 - 12.4 fL 11/21/2024 10:56 AM EDT [facility] Nucleated Red Blood Cell 0.0 0 - 0.2 % 11/21/2024 10:56 AM EDT [facility] NRBC Absolute <0.01 0 - 0.012 K/ul 11/21/2024 10:56 AM EDT [facility] Blood Venipuncture / Unknown 11/21/2024 10:31 AM EDT 11/21/2024 10:32 AM EDT Narrative [facility] - 11/21/2024 10:56 AM EDT [...] MD LAB BLOOD ORDERABLES Final Re sult [facility] [address] [place] [address] * (ABNORMAL) Manual Differential (11/21/2024 10:31 AM EDT) Total Counted 100 11/21/2024 10:56 AM EDT [facility] % Neutros (manual) 39 15 - 67 % 11/21/2024 10:56 AM EDT [facility] % Bands (manual) 0(L) 2 - 21 % 11/21/2024 10:56 AM EDT [facility] % Lymphs (manual) 32 10 - 50 % 11/21/2024 10:56 AM EDT [facility] % Monos (manual) 9 2 - 10 % 11/21/2024 10:56 AM EDT [facility] % Eos (manual) 20(H) 0 - 7 % 11/21/2024 10:56 AM EDT [facility] Platelet Estimate Adequate Adequate 11/21/2024 10:56 AM EDT [facility] ANC# 3.47 K/ L 11/21/2024 10:56 AM EDT [facility] Blood Venipuncture / Unknown 11/21/2024 10:31 AM EDT 11/21/2024 10:32 AM EDT us Raúl Suh MD LAB BLOOD ORDERABLES Final Re sult [facility] [address] [place] [address], [facility] [phone] * (ABNORMAL) MRSA Screen (11/21/2024 10:31 AM EDT) [facility] MRSA by PCR [facility] MRSA Detected by PCR(A) MRSA Not Detected by PCR DEVICE ID9 11/21/2024 4:20 PM EDT [facility] Nasal BOTH ANTERIOR NARES / Unknown 11/21/2024 10:31 AM EDT 11/21/2024 10:32 AM EDT us Raúl Suh MD MICROBIOLOGY - GENERAL ORDERA BLES Final Result [facility] [address] [place] [address], [facility] [phone] * (ABNORMAL) Comprehensive metabolic panel (11/21/2024 10:31 AM EDT) [facility] Sodium 137 136 - 145 meq/L 11/21/2024 11:13 AM EDT [facility] Potassium 3.9 3.5 - 5.1 meq/L 11/21/2024 11:13 AM EDT [facility] Chloride 103 98 - 107 meq/L 11/21/2024 11:13 AM EDT [facility] CO2 28 21 - 32 meq/L 11/21/2024 11:13 AM EDT [facility] Calcium 9.9 8.5 - 10.1 mg/dL 11/21/2024 11:13 AM [facility] Glucose 138(H) 70 - 99 mg/dL 11/21/2024 11:13 AM [facility] BUN 17 7 - 18 mg/dL 11/21/2024 11:13 AM [facility] Creatinine 0.91 0.55 - 1.10 mg/dL 11/21/2024 11:13 AM [facility] BUN/Creatinine 19 11/21/2024 11:13 AM [facility] Albumin 3.9 3.4 - 5.0 g/dL 11/21/2024 11:13 AM [facility] Alkaline Phosphatase 96 46 - 116 U/L 11/21/2024 11:13 AM [facility] ALT 13 12 - 78 U/L 11/21/2024 11:13 AM [facility] AST 20 15 - 37 U/L 11/21/2024 11:13 AM [facility] Total Bilirubin 0.6 0.2 - 1.0 mg/dL 11/21/2024 11:13 AM [facility] Protein, Total 8.2 6.4 - 8.2 gm/dL 11/21/2024 11:13 AM [facility] Anion Gap 10(L) 11 - 22 11/21/2024 11:13 AM [facility] A/G Ratio 0.9 11/21/2024 11:13 AM [facility] Globulin 4.3 g/dL 11/21/2024 11:13 AM [facility] Osmolality Calc 277.6 mOsm/kg 11:13 AM [facility] eGFR (mL/min/1.73m2) >60 >=60 mL/min/1.7 3m2 11/21/2024 11:13 AM [facility] Comment:ESTIMATED GFR IS NOT ACCURATE CREATININE CLEARANCE IN PREDICTING GLOMERULAR FILTRATION RATE. ESTIMATED GFR IS NOT APPLICABLE FOR DIALYSIS PATIENTS. Blood Venipuncture / Unknown 11/21/2024 10:31 AM EDT 11/21/2024 10:32 AM EDT us Raúl Suh MD LAB BLOOD ORDERABLES Final Re sult [facility] [address] [id number], [facility] [phone] * (ABNORMAL) Basic Metabolic Panel (10/25/2024 11:00 AM EDT) Sodium 140 136 - 145 meq/L 10/25/2024 11:32 AM EDT [facility] Potassium 4.2 3.4 - 5.1 meq/L 10/25/2024 11:32 AM EDT [facility] CO2 24 22 - 29 meq/L 10/25/2024 11:32 AM EDT [facility] Chloride 106 98 - 112 meq/L 10/25/2024 11:32 AM EDT [facility] Glucose 124(H) 82 - 115 mg/dL 10/25/2024 11:32 AM EDT [facility] BUN 19.1 9.8 - 20.1 mg/dL 10/25/2024 11:32 AM T [facility] Creatinine 0.85 0.57 - 1.11 mg/dL 10/25/2024 11:32 AM EDT [facility] BUN/Creatinine 22(H) 8 - 20 10/25/2024 11:32 AM EDT [facility] Calcium 10.4(H) 8.4 - 10.2 mg/dL 10/25/2024 11:32 AM EDT [facility] Anion Gap 14(H) 4 - 12 10/25/2024 11:32 AM EDT [facility] [facility] eGFR (mL/min/1.73m2) 79 >=60 mL/min/1.7 3m2 10/25/2024 11:32 AM EDT [facility] Osmolality Calc 283.1 mOsm/kg 11:32 AM EDT [facility] Blood Venipuncture / Unknown 10/25/2024 11:00 AM EDT 10/25/2024 11:13 AM EDT us Rogelio Weldon MD LAB BLOOD ORDERABLES Final Res ult [facility] [address] [place] [address], [facility] [phone] * US extremity non-vascular limited right (10/23/2024 [...] - Images obtained and saved on the [facility] Orthopedic ultrasound machine Dominic Oliva PA-C us Dominic Oliva PA-C IMG US ORDERABLES Final Resul t from Last 3 Months Additional Health Concerns Infection Onset Date Last Indicated MRSA (C) 11/21/2024 11/21/2024 Insurance MEDICARE PART A B BLUE CROSS/BLUE SHIELD Advance Directives For more information, please contact: [phone] * Full Code (Latest Code Status on File) Date Activated Date Inactivated Comments 12/17/2024 12:23 PM 12/17/2024 4:44 PM * Full Code Date Activated Date Inactivated Comments 12/17/2024 7:33 AM 12/17/2024 12:23 PM Care Teams Surgical Supervisor Relationship Specialty Start Date End Date Abhishek Griggs MD [address] [place] [address] PCP - General Adolescent Medicine 10/25/24 Dominic Oliva PA-C [address] [place] [address] Physician Dispatcher Clerk 10/01/24
--- OUTSIDE RECORDS SUMMARY | 2025-01-12 15:50 | XMS_ITS | Encounter Summary ---
Author Organization [facility] Address [address] [place] [address] Care Team Providers Care Books Salesperson Name Role Phone Shikha Grimm Khadra KRISSY Primary Care Provid er Reason for Visit * Reason Comments Med Refill Encounter Details Date Type Department Care Team (Late st Contact Info) Description 12/23/2024 Refill [facility] [address] [phone] Russell Prabhakar DO [address] [address] Social History Tobacco Use Types Packs/Day Years Used Date Smoking Tobacco: Never Passive Smoke Exposure: Past Smokeless Tobacco: Never Alcohol Use Standard Drinks/Week Comments Not Currently 0 (1 standard drink = 0.6 oz pur e alcohol) consumed rarely Comments Unknown Sex and Gender Information Value Date Recorded Sex Assigned at Female 09/16/2024 8:14 AM EDT Legal Sex Female 10:34 AM EDT Gender Identity Not on file Sexual Orientation Straight 09/16/2024 8: 14 AM EDT Occupation Industry Job Start Date Job End Date Unemployed Not on file Not on file Not on file documented as of this encounter Miscellaneous Notes * Telephone Encounter - Beka White, Meka - 12/24/2024 8:13 AM EDT Images from the original note were not included. Specialty Pharmacy Patient Management Program Per Protocol Prescription Order/Refill Patient currently fills medications at [facility] and is not enrolled in an Rheumatology Patient Management Program. Requested Prescriptions Pending Prescriptions Disp Refills Enbrel SureClick 50 MG/ML solution auto-injector [Pharmacy Med Name: ENBREL 50 MG/ML SURECLICK] 12 mL 0 Sig: INJECT 50 MG (1 ML) UNDER THE SKIN EVERY 7 DAYS INTO THE APPROPRIATE AREA DIRECTED Prescription orders above were sent to the pharmacy per Collaborative Care Agreement Protocol. documented in this encounter Plan of Treatment Upcoming Encounters Date Type Department Care Team (Late st Contact Info) Description 01/28/2025 1:30 PM EDT Office Visit [facility] [address] [phone] Yuli English APRN [address] [phone] 05/26/2025 11:30 AM EST Office Visit [facility] [address] [phone] Russell Prabhakar DO [address] [id number] documented as of this encounter Visit Diagnoses Not on filedocumented in this encounter Care Teams Books Salesperson Relationship Specialty Start Date End Date Shikha Grimm APRN [address] [facility] [address] [place] [address] PCP - General Family Medicine 11/27/23 documented as of this encounter
--- OUTSIDE RECORDS SUMMARY | 2025-01-12 15:50 | XMS_ITS | Encounter Summary ---
Author Organization [facility] Address [address] [place] [address] Care Team Providers Care Site Leader Name Role Phone Sirisha Shikha Khadra REY Primary Care Provid er Encounter Details Date Type Department Care Team (Late Contact Info) Description 09/24/2024 Results Follow-Up [facility] [address] [phone] Yuli English APRN [address] [phone] Social History Tobacco Use Types Packs/Day Years [...] Encounters Date Type Department Care Team (Late Contact Info) Description 01/28/2025 1:30 PM EDT Office Visit [facility] [address] [phone] Yuli English APRN [address] [phone] 05/26/2025 11:30 AM EST Office Visit [facility] [address] [phone] Russell Prabhakar DO 330 [facility] [address] [place] [address] documented as of this encounter Visit Diagnoses Not on filedocumented in this encounter Care Teams Site Leader Relationship Specialty Start Date End Date Shikha Grimm APRN [address] [facility] [address] [facility] [address] [place] [address] PCP - General Family Medicine 11/27/23 documented as of this encounter
--- OUTSIDE RECORDS SUMMARY | 2025-01-12 15:50 | XMS_ITS | Clinical Summary ---
Author Organization [facility] Address [address] [place] [address] Care Team Providers Care Barrel Straightener Name Role Phone Shikha Grimm APRN Primary Care Provid er Allergies Active Allergy Reactions Criticality Noted Date Comments Penicillins Hives,Rash High 07/13/2022 Other reaction(s): Hives Medications gabapentin (NEURONTIN) 400 MG capsule Take 1 capsule by mouth 3 (Three) Times a Day. Active esomeprazole (nexIUM) 40 MG capsule Take 1 capsule by mouth Daily. Active empagliflozin (Jardiance) 25 MG tablet tablet Take 1 tablet by mouth Daily. In the morning Active citalopram (CeleXA) 40 MG tablet Take 1 tablet by mouth Daily. Active hydroCHLOROthi azide 12.5 MG tablet Take 1 tablet by mouth Daily. Active buPROPion XL (WELLBUTRIN XL) 150 MG 24 hr tablet Take 1 tablet by mouth Daily. 06/15/19 24 Active dilTIAZem CD (CARDIZEM CD) 120 MG 24 hr capsule Take 1 capsule by mouth Daily. 03/20/20 24 Active aspirin 81 MG EC tablet Take 1 tablet (81 mg total) by mouth daily. Active losartan (COZAAR) 50 MG tablet Take 1 tablet by mouth Daily. 02/17/20 24 Active bisoprolol (ZEBeta) 5 MG tablet Take 1 tablet by mouth Daily. 03/20/20 24 Active Trulicity 4.5 MG/0.5ML solution auto-injector Inject under the skin into the appropriate area as directed 1 (One) Time Per Week. 03/25/20 24 Active HYDROcodone-ac etaminophen (NORCO) 7.5-325 MG per tablet TAKE ONE TABLET BY MOUTH FOUR TIMES DAILY NEEDED FOR chronic pain MAY CAUSE DROWSINESS 04/02/20 24 Active Blood Glucose Monitoring Suppl (Accu-Chek Guide Me) w/Device kit Daily. as directed 07/23/19 25 Active vitamin D (ERGOCALCIFERO L) 1.25 MG (10679 UT) capsule capsule 07/26/19 25 Active Repatha solution prefilled syringe injection 08/21/19 25 Active Accu-Chek Guide Test test strip Daily. as directed 07/23/19 25 Active Accu-Chek Softclix Lancets lancets USE FOR BLOOD SUGAR TESTING ONCE DAILY 07/23/19 25 Active methocarbamol (ROBAXIN) 500 MG tablet TAKE 1 TO 2 TABLET(S) BY MOUTH EVERY NIGHT NEEDED FOR MUSCLE SPASMS MAY CAUSE DROWSINESS 07/24/19 25 Active Xarelto 20 MG tablet take 1 tablet by mouth each evening 07/09/19 25 Active leflunomide (ARAVA) 20 MG tablet Take 1 tablet by mouth Daily. 90 tablet 1 09/24/19 25 Active Enbrel SureClick 50 MG/ML solution auto-injector INJECT 50 MG (1 ML) UNDER THE SKIN EVERY 7 DAYS INTO THE APPROPRIATE AREA DIRECTED 12 mL 12/25/19 25 Active Enbrel SureClick 50 MG/ML solution auto-injector Inject 1 mL under the skin into the appropriate area as directed Every 7 (Seven) Days. 12 mL 10/25/19 25 025 Discontinued Active Problems Problem Noted Date Diagnosed Date Other fatigue 04/08/2024 Assessment & Plan (04/08/2024 8:25 AM EST): Update Q TB and hepatitis panel with next lab draw. Fibromyalgia 12/07/2023 Assessment & Plan (09/23/2024 2:01 PM EDT): 1. H & P consistent with this diagnosis. 2. Encourage aerobic activity and sleep hygiene. 3. If she has not had a sleep study/consultation consider getting this done. 4. She seems stable 5. She will follow up with us in 3-4 months. 6. Weight loss would be helpful. 7. She has taken gabapentin 8. She has tried muscle relaxers like Baclofen PRN 9. She has taken NSAIDS like ibuprofen PRN 10. She has taken an SSRI. Treating anxiety/depression can help improve myofascial pain 11. She has taken/tried hydrocodone/APAP PRN 12. She has done some physical therapy 13. Continue to follow with Dr. Banks for her spinal issues. He is also going to do her CTS release. Assessment & Plan (04/09/2024 11:49 AM EST): 1. H & P consistent with this diagnosis. 2. Encourage aerobic activity and sleep hygiene. 3. If she has not had a sleep study/consultation consider getting this done. 4. She seems stable 5. She will follow up with us in 3-4 months. 6. Weight loss would be helpful. 7. She has taken gabapentin 8. She has tried muscle relaxers like Baclofen PRN 9. She has taken NSAIDS like ibuprofen PRN 10. She has taken an SSRI. Treating anxiety/depression can help improve myofascial pain 11. She has taken/tried hydrocodone/APAP PRN 12. She has done some physical therapy 13. Continues to have sciatica pain. The SI injections have stopped helping. She is following with Dr Banks in May 2024. She has had SI joint surgery twice. Assessment & Plan (12/11/2023 9:49 AM EDT): 1. H & P consistent with this diagnosis. 2. Encourage aerobic activity and sleep hygiene. 3. If she has not had a sleep study/consultation consider getting this done. 4. She seems stable 5. She will follow up with us in 3-4 months. 6. Weight loss would be helpful. 7. She has taken gabapentin 8. She has tried muscle relaxers like Baclofen PRN 9. She has taken NSAIDS like ibuprofen PRN 10. She has taken an SSRI. Treating anxiety/depression can help improve myofascial pain 11. She has taken/tried hydrocodone/APAP PRN 12. She has done some physical therapy 13. She has had sciatica pain and getting injections. She cannot get another injection until January. Rheumatoid arthritis 12/07/2023 Assessment & Plan (09/23/2024 2:01 PM EDT): * Medications/treatments/interventions tried include: Ibuprofen, Baclofen, gabapentin, Citalopram, hydrocodone/APAP, PT, She saw podiatry, MTX/folic acid, prednisone, Humira, IV Inflectra, Enbrel, Arava, physical therapy * 09/23/2016: ESR 18.0, Uric acid 8.1, CRP normal, RF 15.4 (<13.9 normal), NADEEM IFA negative, CBC normal, Glucose 148, CMP otherwise ok, HbA1c was 6.6%, TSH normal * 12/14/2016: IgG and IgM RF positive 1. Continue Arava. 2. Check labs every 8-12 weeks for medication toxicity monitoring 3. She seems well today. 4. Follow up in 3-4 months 5. She is now getting Enbrel without difficulty. 6. She has been diagnosed with carpal tunnel (CTS) in left night and will have surgery. Assessment & Plan (04/09/2024 11:48 AM EST): * Medications/treatments/interventions tried include: Ibuprofen, Baclofen, gabapentin, Citalopram, hydrocodone/APAP, PT, She saw podiatry, MTX/folic acid, prednisone, Humira, IV Inflectra, Enbrel, Arava, physical therapy * 09/23/2016: ESR 18.0, Uric acid 8.1, CRP normal, RF 15.4 (<13.9 normal), NADEEM IFA negative, CBC normal, Glucose 148, CMP otherwise ok, HbA1c was 6.6%, TSH normal * 12/14/2016: IgG and IgM RF positive 1. Continue Arava. 2. Check labs every 8-12 weeks for medication toxicity monitoring 3. She seems well today. 4. Follow up in 3-4 months 5. She has had difficulty getting Enbrel. 6. We have sent a request for refills to the specialty pharmacist. Assessment & Plan (12/11/2023 9:48 AM EDT): * Medications/treatments/interventions tried include: Ibuprofen, Baclofen, gabapentin, Citalopram, hydrocodone/APAP, PT, She saw podiatry, MTX/folic acid, prednisone, Humira, IV Inflectra, Enbrel, Arava, physical therapy * 09/23/2016: ESR 18.0, Uric acid 8.1, CRP normal, RF 15.4 (<13.9 normal), NADEEM IFA negative, CBC normal, Glucose 148, CMP otherwise ok, HbA1c was 6.6%, TSH normal * 12/14/2016: IgG and IgM RF positive 1. Continue Arava. 2. Check labs every 8-12 weeks for medication toxicity monitoring 3. She seems well today. 4. Follow up in 3-4 months 5. She has had difficulty getting Enbrel. [facility] tells her every 3 months that she needs a new prescription. She is now two weeks behind on Enbrel. 6. She was told by [facility] they have now received the prescription. High risk medication use 12/07/2023 Assessment & Plan (09/18/2024 12:27 PM EDT): Arava 20 mg PO daily for RA 1. CBC and CMP every 8-12 weeks to monitor for medication toxicity. 2. No recent serious infections. 3. Refill today Assessment & Plan (04/08/2024 8:23 AM EST): Arava 20 mg PO daily for RA 1. CBC and CMP every 8-12 weeks to monitor for medication toxicity. 2. No recent serious infections. 3. Refill today Assessment & Plan (12/07/2023 4:28 PM EDT): Arava 20 mg PO daily for RA 1. CBC and CMP every 8-12 weeks to monitor for medication toxicity. 2. No recent serious infections. 3. 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 Hold if the patient develops infection. 2. Avoid live vaccines while on this medication. 3. No recent serious infections 4. No injection site reactions. 5. Also hold this medication perioperatively if the patient is going to have a surgical procedure Assessment & Plan (04/08/2024 8:23 AM EST): * Enbrel 50 mg SQ injection once/week for RA TB and hepatitis panel were negative on 04/24/2023. 1. Hold if the patient develops infection. 2. Avoid live vaccines while on this medication. 3. No recent serious infections 4. No injection site reactions. 5. Also hold this medication perioperatively if the patient is going to have a surgical procedure Assessment & Plan (12/07/2023 4:28 PM EDT): * Enbrel 50 mg SQ injection once/week for RA TB and hepatitis panel were negative on 04/24/2023. 1. Hold if the patient develops infection. 2. Avoid live vaccines while on this medication. 3. No recent serious infections 4. No injection site reactions. 5. Also hold this medication perioperatively if the patient is going to have a surgical procedure Encounters Date Type Department Care Team Description 12/23/2024 Refill [facility] [address] [phone] Russell Prabhakar DO 10/23/2024 Refill [facility] [address] [phone] Russell Prabhakar DO from Last 3 Months Immunizations Immunization Administration Dates Next Due Influenza, Unspecified 03/09/2020,03/01/2017 Family History Medical History Relation Name Comments Arthritis Mother Diabetes Mother Arthritis Other family history Relation Name Status Comments Mother Other family history Social History Tobacco Use Types Packs/Day Years Used Date Smoking Tobacco: Never Passive Smoke Exposure: Past Smokeless Tobacco: Never Tobacco Cessation:Counseling Given: Not Answered Alcohol Use Standard Drinks/Week Comments Not Currently [...] file Not on file Not on file Last Filed Vital Signs Vital Sign Reading Time Taken Comments Blood Pressure 118/78 09/23/2024 1:44 PM EDT Pulse 76 09/23/2024 1:44 PM EDT Temperature 36.3 C (97.3 F) 09/23/2024 1:44 PM EDT Respiratory Rate - - Oxygen Saturation - - Inhaled Oxygen Concentration - - Weight 109 kg (241 lb) 09/23/2024 1:44 PM EDT Height 172.7 cm (5' 7.99 ) 09/23/2024 1:44 PM ED T Body Mass Index 36.65 09/23/2024 1:44 PM EDT Plan of Treatment Upcoming Encounters Date Type Department Care Team (Late st Contact Info) Description 01/28/2025 1:30 PM EDT Office Visit [facility] [address] [phone] Yuli English APRN [address] [phone] 05/26/2025 11:30 AM EST Office Visit [facility] 330 [facility] [address] [phone] Russell Prabhakar DO [address] [phone] Health Maintenance Due Date Last Done Comments Annual Gynecologic Pelvic an d Breast Exam 1964 TDAP/TD VACCINES (1 - Tdap) 1983 PAP SMEAR 1985 MAMMOGRAM 2004 COLOGUARD 2009 COLON CANCER SCREENING 5 YEA R SIGMOIDOSCOPY 2009 COLONOSCOPY [address] CANCER SCREENING 2009 [address] COLONOGRAPHY 2009 FECAL OCCULT BLOOD TEST 2009 FIT Testing (1 year) 2009 Pneumococcal Vaccine 50+ (2 of 2 - PCV) 03/05/2021 03/05/2020 ANNUAL WELLNESS VISIT 11/27/2023 COVID-19 Vaccine (5 - 2023-2 5 season) 2024 02/09/2022, 03/03/2021, 06/29/2020, Additional history exists ZOSTER VACCINE (2 of 2) 09/16/2024 07/22/2024 INFLUENZA VACCINE 02/19/2025 03/14/2024, , 03/17/2022, Additional history exists HEPATITIS C SCREENING Completed 04/09/2024 Procedures Procedure Name Priority Date/Time Associated Diagnosis Comments HEPATITIS PANEL, ACUTE Routine 04/09/2024 12:07 PM EST 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 High risk medication use Other fatigue from Last 3 Months or Most Recently Relevant to Health Maintenance Results * Hepatitis Panel, Acute (04/09/2024 12:07 PM EST) Hepatitis B Surface Ag Non-Reacti ve Non-Reacti ve 04/10/2024 12:30 AM EST [facility] Hep A IgM Non-Reacti ve Non-Reacti ve 04/10/2024 12:30 AM EST [facility] Hep B C IgM Non-Reacti ve Non-Reacti ve 04/10/2024 12:30 AM EST [facility] Hepatitis C Ab Non-Reacti ve Non-Reacti ve 04/10/2024 12:30 AM EST [facility] Blood Venipuncture / Unknown 04/09/2024 12:07 PM EST 04/09/2024 12:07 PM EST Narrative [facility] - 04/10/2024 12:30 AM EST Results may be falsely decreased if patient taking Biotin. us Yuli English COLLEGE ADVISOR LAB BLOOD ORDERABLES F inal Result [facility]
[address] [place] [address], from Last 3 Months or Most Recently Relevant to Health Maintenance Insurance MEDICARE A & B [facility] [employer] BLUE SHIELD PPO Member Subscriber Plan / Payer (Ef fective 2024-Present) Name:Neeru Samano Relation to Subscriber:Spouse Name:Randell Samano Date of :1961 Address: [facility] [place] [address] Payer ID:[id number] (NAIC) Type:Not on file Address: [address] [place] [phone] Care Teams Barrel Straightener Relationship Specialty Start Date End Date Shikha Grimm APRN [address] [facility] [address] [facility] [place] [address] PCP - General Family Medicine 11/27/23
--- NOTE | 2025-01-12 15:51 | HMH.EDGENADL ---
Discharge Plan Disposition Patient Disposition: Home, Self-Care Prescriptions Prescriptions: No Action rivaroxaban [Xarelto] 20 mg tablet 20 mg PO QPM hydrocodone-acetaminophen 7.5-300 mg tablet 1 tab PO Q6H PRN (Reason: pain, moderate) esomeprazole magnesium 40 mg capsule,delayed release(DR/EC) 40 mg PO DAILY gabapentin 400 mg capsule 400 mg PO QID hydrochlorothiazide 25 mg tablet 12.5 mg PO QAM losartan 100 mg tablet 50 mg PO DAILY empagliflozin 25 mg tablet 25 mg PO DAILY 90 Days Qty: 90 Patient Comments: TAKE 1 TABLET BY MOUTH EVERY DAY IN THE MORNING leflunomide 20 mg tablet 20 mg PO DAILY bupropion HCl 150 mg tablet extended release 24 hr 150 mg PO DAILY Enbrel SureClick 50 mg/mL (1 mL) pen injector 50 mg SQ QWEEK Trulicity 4.5 mg/0.5 mL pen injector SQ Patient Comments: INJECT 1 SYRINGE SUBCUTANEOUSLY ONCE A WEEK (DME) blood-glucose meter [Accu-Chek Guide Me Glucose Mtr] Misc See Rx Instructions .ROUTE .MEDSUPPLY Qty: 1 Patient Comments: USE DIRECTED DAILY Rx Instructions: As directed (DME) Accu-Chek Guide test strips Strip See Rx Instructions .ROUTE .MEDSUPPLY Qty: 10 Patient Comments: USE DIRECTED DAILY Rx Instructions: As directed ([facility] [place]) lancets [Accu-Chek Softclix Lancets] [facility] See Rx Instructions .ROUTE .MEDSUPPLY Qty: 100 Patient Comments: USE FOR BLOOD SUGAR TESTING ONCE DAILY Rx Instructions: As directed diltiazem HCl 120 mg capsule,extended release 24hr See Rx Instructions .ROUTE .COMPLEX Qty: 90 3RF Dose Instruction: TAKE 1 CAPSULE DAILY Rx Instructions: TAKE 1 CAPSULE DAILY bisoprolol fumarate 5 mg tablet See Rx Instructions .ROUTE .COMPLEX Qty: 90 3RF Dose Instruction: TAKE 1 TABLET DAILY Rx Instructions: TAKE 1 TABLET DAILY ergocalciferol (vitamin D2) 1,250 mcg (50,000 unit) capsule See Rx Instructions .ROUTE .COMPLEX Qty: 13 3RF Dose Instruction: TAKE 1 CAPSULE ONCE WEEKLY Rx Instructions: TAKE 1 CAPSULE ONCE WEEKLY diazepam 5 MG tablet 5 mg PO BID PRN (Reason: Muscle Spasm) 0RF citalopram 20 mg tablet 40 mg PO HS Referrals Follow up/Referrals: Abhishek Griggs MD [Primary Care Provider, Internal Medicine] - See instructions Activity Restrictions/Add. Instructions Additional Instructions/Restrictions: Please follow-up with your surgeon tomorrow as previously instructed and return with any recurrence of your symptoms. Clinical Impressions Clinical Impression: Anterior dislocation of right shoulder Instructions Patient Instructions: DI for Moderate Sedation, Moderate Sedation Print Language Print Language: Ethiopian Discharge ED Provider: Karin Zhu General Adult HPI General Chief complaint: PAIN Stated complaint: poss dislocated r shoulder Time Seen by Provider: 01/12/25 15:36 Mode of Arrival: Ambulatory Source of Information: Patient Description of Symptoms (Recalled from ER Triage Doc. by RN): patient presents to the ED for a possible right shoulder dislocation. PAtient had a reverse shoulder surgery approximately a month ago, and actually dislocated it monday, went to the ER where her surgery was at and had it put back in place. patient was at home today and felt a pop and is in 10/10 pain with her right shoulder. History of Present Illness HPI narrative: Patient is a 59-year-old female presenting today with right shoulder pain. Had a shoulder reversal surgery after severe rotator cuff tendinopathy performed [address] [facility]. She was doing well having physical therapy being performed at home when she had a spontaneous dislocation on Monday. She went back to [place] required a very large amount of sedation including multiple doses of ketamine propofol fentanyl and ultimately was successfully reduced. She was told that the surgeon was called regarding the case and that everything was fine and she was told. She does take chronic pain medication for her back. She states that today she felt like her arm spontaneously dislocated again but she was not doing any significant types of movement. Related Data Home Medications ?Medication ?Instructions ?Recorded ?Confirmed esomeprazole magnesium 40 mg 40 mg PO DAILY acid reflux 09/05/17 11/25/24 capsule,delayed release hydrocodone 7.5 mg-acetaminophen 1 tab PO Q6H PRN pain, moderate 09/05/17 11/25/24 300 mg tablet rivaroxaban 20 mg tablet (Xarelto) 20 mg PO QPM Blood thinner 09/05/17 11/25/24 empagliflozin 25 mg tablet 25 mg PO DAILY Diabetes 90 days 02/07/19 11/25/24 #90 tabs citalopram 20 mg tablet 40 mg PO HS mood 04/19/23 11/25/24 gabapentin 400 mg capsule 400 mg PO QID neuropathy 04/19/23 11/25/24 hydrochlorothiazide 25 mg tablet 12.5 mg PO QAM diuretic 04/19/23 11/25/24 losartan 100 mg tablet 50 mg PO DAILY blood pressure 04/19/23 11/25/24 bupropion HCl 150 mg 24 hr tablet, 150 mg PO DAILY 06/03/24 11/25/24 extended release etanercept 50 mg/mL (1 mL) 50 mg SQ QWEEK 06/03/24 11/25/24 subcutaneous pen injector (Enbrel SureClick) leflunomide 20 mg tablet 20 mg PO DAILY 06/03/24 11/25/24 blood sugar diagnostic (Accu-Chek #10 ea 11/25/24 11/25/24 Guide test strips) blood-glucose meter (Accu-Chek #1 ea 11/25/24 11/25/24 Guide Me Glucose Meter) dulaglutide 4.5 mg/0.5 mL mg SQ 11/25/24 11/25/24 subcutaneous pen injector (Trulicity) lancets (Accu-Chek Softclix #100 ea 11/25/24 11/25/24 Lancets) Previous Rx's ?Medication ?Instructions ?Recorded diazepam 5 mg tablet 5 mg PO BID PRN Muscle Spasm 05/31/18 bisoprolol fumarate 5 mg tablet See Rx Instructions .Route 03/20/24 .COMPLEX #90 tabs diltiazem HCl 120 mg See Rx Instructions .Route 03/20/24 capsule,extended release 24 hr .COMPLEX #90 caps ergocalciferol (vitamin D2) 1,250 See Rx Instructions .Route 07/25/24 mcg (50,000 unit) capsule .COMPLEX #13 caps Allergies Allergy/AdvReac Type Severity Reaction Status Date / Time Penicillins Allergy Intermediate I-RASH Verified 11/25/24 09:46 [facility] Disclaimer: The information contained in this section may have been updated after the patient was seen, as this information can be updated by other users. Medical History (Updated 01/12/25 @ 15:51 by Karin Zhu MD) Encounter for pre-operative cardiovascular clearance Abnormal echocardiogram HFrEF (heart failure with reduced ejection fraction) Pulmonary histoplasmosis granuloma Solitary pulmonary nodule Lymphadenopathy Pulmonary histoplasmosis CHEY (obstructive sleep apnea) Fatigue Atrial fibrillation HTN (hypertension) LV dysfunction Surgical History History of surgery on lower extremity History of arthroscopy of shoulder Family History Other Hypertension Social History Smoking Status: Never smoker alcohol intake: never counseling provided: none substance use type: denies use current occupational status: retired Travel in the last 8 weeks?: None household members: significant other housing: house current occupational exposures/hazards: No caffeine: No Have you lived/traveled outside [place] in past 30 days?: No Contact w/someone who lives/traveled outside US past 30 days?: No Exposure to someone with infectious disease in past 14 days?: No Do you have a fever (greater than 100.4 F or 38 C)?: No Have you tested positive for COVID-19?: No Exposed to someone with COVID-19 in past 14 days?: No Do you have a sore throat?: No Do you have a cough?: No Do you have any weakness?: No Do you have any diarrhea?: No Are you experiencing any unusual bleeding?: No Do you have any muscle aches/pain?: No Do you have any abdominal pain?: No Are you experiencing loss of taste or smell?: No Other Medical History Have you received the Flu Vaccine for this season: No Have you received the Pneumonia Vaccine: No ROS Obtained: Yes All systems reviewed & no additional complaints except as documented Physical Exam General General appearance: in distress Respiratory Respiratory exam: Present normal lung sounds bilaterally Cardiovascular Cardiovascular exam: Present regular rate Neurological Exam Neurological exam: Present alert and oriented X3 Medical Decision Making Medical Records Screening: Per USPSTF and CDC recommendations, given the prevalence of disease in our region, it is our hospital?s policy to screen for HIV and viral Hepatitis for all patients aged 18 and over and those with ongoing risk factors. [place] Inquiry Pt receiving controlled substance: No Vital Signs: 01/12/25 15:41 01/12/25 16:30 01/12/25 16:33 Temperature 98.2 F Temperature Source Oral Pulse Rate 95 H 102 H Pulse Rate [Left Radial] 104 H Respiratory Rate 18 24 Blood Pressure 128/79 130/96 H Blood Pressure [Left Arm] 160/112 H Blood Pressure Mean [Left Arm] 128 Blood Pressure Source [Left Arm] Automatic Cuff Blood Pressure Position [Left Arm] Sitting 02 Sat by Pulse Oximetry 98 97 95 Oxygen Delivery Method Room Air Oxygen Flow Rate (LPM) 01/12/25 16:34 01/12/25 16:34 01/12/25 16:35 Temperature 98.3 F Temperature Source Temporal Artery Scan Pulse Rate 101 H 104 H Pulse Rate [Left Radial] 104 H Respiratory Rate 18 25 H 15 Blood Pressure 112/77 120/74 Blood Pressure [Left Arm] 143/69 H Blood Pressure Mean [Left Arm] 93 Blood Pressure Source [Left Arm] Automatic Cuff Blood Pressure Position [Left Arm] Supine 02 Sat by Pulse Oximetry 96 96 96 Oxygen Delivery Method Room Air Oxygen Flow Rate (LPM) 01/12/25 16:36 01/12/25 16:37 01/12/25 16:39 Temperature 98.3 F Temperature Source Oral Pulse Rate 100 H 106 H Pulse Rate [Left Radial] 109 H Respiratory Rate 12 19 20 Blood Pressure 143/69 H 144/80 H Blood Pressure [Left Arm] 144/80 H Blood Pressure Mean [Left Arm] 101 Blood Pressure Source [Left Arm] Blood Pressure Position [Left Arm] 02 Sat by Pulse Oximetry 97 97 100 Oxygen Delivery Method Nasal Cannula Oxygen Flow Rate (LPM) 2 01/12/25 16:40 01/12/25 16:46 01/12/25 16:47 Temperature 98 F Temperature Source Oral Pulse Rate 109 H 108 H Pulse Rate [Left Radial] 109 H Respiratory Rate 16 13 18 Blood Pressure 145/114 H 165/112 H Blood Pressure [Left Arm] 165/112 H Blood Pressure Mean [Left Arm] 129 Blood Pressure Source [Left Arm] Blood Pressure Position [Left Arm] 02 Sat by Pulse Oximetry 97 97 98 Oxygen Delivery Method Room Air Oxygen Flow Rate (LPM) 01/12/25 16:51 01/12/25 16:51 01/12/25 16:55 Temperature 98.1 F 98.1 F Temperature Source Axillary Axillary Pulse Rate 107 H Pulse Rate [Left Radial] 98 H 99 H Respiratory Rate 18 12 20 Blood Pressure 163/97 H Blood Pressure [Left Arm] 163/97 H 157/97 H Blood Pressure Mean [Left Arm] 119 117 Blood Pressure Source [Left Arm] Automatic Cuff Automatic Cuff Blood Pressure Position [Left Arm] Sitting Sitting 02 Sat by Pulse Oximetry 98 98 98 Oxygen Delivery Method Nasal Cannula Nasal Cannula Oxygen Flow Rate (LPM) 2 2 01/12/25 16:55 01/12/25 17:00 01/12/25 17:00 Temperature 98.1 F Temperature Source Axillary Pulse Rate 99 H 99 H Pulse Rate [Left Radial] 96 H Respiratory Rate 20 20 27 H Blood Pressure 157/97 H 162/92 H Blood Pressure [Left Arm] 162/92 H Blood Pressure Mean [Left Arm] 115 Blood Pressure Source [Left Arm] Automatic Cuff Blood Pressure Position [Left Arm] Sitting 02 Sat by Pulse Oximetry 98 97 99 Oxygen Delivery Method Room Air Oxygen Flow Rate (LPM) 01/12/25 17:15 01/12/25 17:26 01/12/25 17:30 Temperature 97.2 F L 98.2 F Temperature Source Axillary Axillary Pulse Rate 87 Pulse Rate [Left Radial] 88 85 Respiratory Rate 18 18 18 Blood Pressure 139/80 Blood Pressure [Left Arm] 139/80 139/79 Blood Pressure Mean [Left Arm] 99 99 Blood Pressure Source [Left Arm] Automatic Cuff Automatic Cuff Blood Pressure Position [Left Arm] Sitting Supine 02 Sat by Pulse Oximetry 97 97 98 Oxygen Delivery Method Room Air Room Air Oxygen Flow Rate (LPM) 01/12/25 17:31 01/12/25 17:33 01/12/25 17:46 Temperature 98.2 F Temperature Source Axillary Pulse Rate 88 85 Pulse Rate [Left Radial] 93 H Respiratory Rate 18 18 13 Blood Pressure 139/79 135/77 Blood Pressure [Left Arm] 139/79 Blood Pressure Mean [Left Arm] 99 Blood Pressure Source [Left Arm] Automatic Cuff Blood Pressure Position [Left Arm] Supine 02 Sat by Pulse Oximetry 97 98 97 Oxygen Delivery Method Room Air Oxygen Flow Rate (LPM) 01/12/25 18:00 Temperature Temperature Source Pulse Rate 81 Pulse Rate [Left Radial] Respiratory Rate 12 Blood Pressure 126/72 Blood Pressure [Left Arm] Blood Pressure Mean [Left Arm] Blood Pressure Source [Left Arm] Blood Pressure Position [Left Arm] 02 Sat by Pulse Oximetry 97 Oxygen Delivery Method Oxygen Flow Rate (LPM) Orders (Tests/Meds): ED MEDICATIONS Discontinued Medications Generic Name Dose Route Start Last Admin Trade Name Freq PRN Reason Stop Dose Admin Hydromorphone HCl 1 mg 01/12/25 15:48 01/12/25 15:56 Hydromorphone 2mg/Ml Syringe IV 01/12/25 15:49 1 mg ONCE ONE Administration Hydromorphone HCl 1 mg 01/12/25 16:09 01/12/25 16:14 Hydromorphone 2mg/Ml Syringe IV 01/12/25 16:10 1 mg ONCE ONE Administration Lactated Ringer's 500 mls @ 999 mls/hr 01/12/25 16:09 01/12/25 17:50 Lactated Ringer's 1000 Ml Bag IV 01/12/25 16:39 999 mls/hr .Q31M ONE Infusion Ketamine HCl 200 mg 01/12/25 16:57 01/12/25 17:02 Ketamine 50mg/1ml Syringe IV 01/12/25 16:58 200 mg ONCE ONE Administration ORDERS Category Date Time Status Shoulder XR right miminum 2 views [XR shoulder RT min Exams 01/12/25 15:48 Completed 2V] Stat Shoulder XR right miminum 2 views [XR shoulder RT min Exams 01/12/25 16:54 Completed 2V] Stat Medical Decision Narrative: 59-year-old with above history and physical. I suspect she still has significant instability of her soft tissue structures surrounding her joint. This is her second dislocation in a few days with minimal activity. I will get plain films and reassess. Apparently she was very difficult to sedate at the other hospital requiring multiple medications. Will start with aggressive pain control including Dilaudid and IV fluids at the moment. X-ray was performed I personally interpreted which showed a superior and anterior prosthesis joint dislocation given her multiple dislocations and the instability of the joints as well as her significant need for sedative medications recently discussed the case with Dr. Franco who suggested that I proceed with sedation and reduction. This was performed and went well. No significant complications. Postreduction x-rays were performed which I personally interpreted which shows successful reduction. Patient is currently recovering from her sedation we will do a neurovascular exam when she wakes up she will need to stay in the sling and internal rotation and adducted position until she sees Dr. Suh tomorrow. Reassessment 647 patient neurovascularly is normal he is wide-awake back to baseline feels much better understands to stay and the position that we have placed her and will follow-up tomorrow with her surgeon return with any worsening of her symptoms. Procedures Orthopedic Joint Reduction Joint #1: Time Out Performed: Yes Side: right Joint Reduction Location: shoulder Analgesia: procedural sedation Shoulder Technique Used (if applicable): traction/counter-traction Technique used: traction/counter-traction and direct manipulation Post-reduction neuro exam: intact Post-reduction vascular: intact Post Reduction X-Ray Obtained: Yes Post Reduction X-Ray Results: reduced Splint Applied: Yes (Sling) Patient Tolerated Procedure: well Procedural Sedation Mallampati Score:: Class II Indication: fracture/dislocation reduction ASA Class: II Preparation: monitor car operator applied, pulse oximeter, capnometry used, supplemental O2 applied, reversal agents at bedside, suction/airway equipment at bedside and IV secured Ketamine: IV Ketamine dose (mg): 150 Patient Tolerated Procedure: well Complications: none Interventions: oxygen applied Critical Care Critical Care Time Critical Care Time: No
--- OUTSIDE RECORDS SUMMARY | 2025-01-12 15:51 | XMS_ITS | Clinical Summary ---
Author Organization Healthcare Address [address] [phone] Care Team Providers Care Android Ios Developer Name Role Phone Shikha Grimm APRN Primary Care Provider [phone] Social History Tobacco Use Types Packs/Day Years [...] of Treatment Not on file Care Teams Android Ios Developer Relationship Specialty Start Date End Date Shikha Grimm APRN [address] [place] [address] PCP - General 10/02/20
--- OUTSIDE RECORDS SUMMARY | 2025-01-12 15:51 | XMS_ITS | Clinical Summary ---
Author Organization [employer] ([place], [place], [place], [place]) Address [address] [place] [address] Care Team Providers Care Supervisor Heading Name Role Phone Dominic Oliva PA-C Unavailable [phone] Abhishek Griggs MD Primary Care Provider + [phone] Allergies Active Allergy Reactions Criticality Noted Date [...] mouth 4 (four) times daily as needed. 2024 Discontinued(S top Taking at Discharge) mupirocin (BACTROBAN) 2 % ointmentIndicat ions:methicilli n-resistant S. aureus nasal colonization Apply 1 Application topically 2 (two) times daily for 5 days Apply twice daily into each nostril. 30 g 025 2024 Xarelto 20 mg tablet Take 0.5 tablets (10 mg total) by mouth daily with breakfast for 14 days. 7 tablet /12/ 2025 HYDROcodone-stephanie taminophen (NORCO) 10-325 mg per tablet [...] Date Type Department Care Team Description 01/10/2025 6:17 PM EDT - 01/10/2025 9:01 PM EDT Emergency [facility] Emergency Department [address] [place] [address] Sp Campa DO Anterior dislocation of right shoulder, initial encounter (Primary Dx) Discharge Disposition: Home or Self Care 01/10/2025 Travel 12/30/2024 9:30 AM EDT Ancillary Procedure [address] [phone] Raúl Suh MD 12/30/2024 9:15 AM EDT Office Visit [place] [address] [place] [address] Raúl Suh MD S/P reverse total shoulder arthroplasty, right (Primary Dx) 12/19/2024 Telephone [facility] Orthopedics - [address] [place] [address] Raúl Suh MD Medication 12/18/2024 Orders Only [facility] Neurology - [address] [place] [address] ProviderJaylyn MD 12/17/2024 11:15 AM EDT - 12/17/2024 1:13 PM EDT Surgery [facility] Operating Room [address] [place] [phone] Raúl Suh MD ARTHROPLASTY, SHOULDER, TOTAL, REVERSE 12/17/2024 11:06 AM EDT Anesthesia Event [facility] Operating Room [address] [place] [phone] Margaret Bryson CRNA 12/17/2024 8:29 AM EDT - 12/17/2024 3:42 PM EDT Hospital Encounter [facility] Operating Room [address] [place] [phone] Raúl Suh MD Rotator cuff arthropathy of right shoulder Discharge Disposition: Home or Self Care 12/17/2024 Travel 12/10/2024 Orders Only [facility] Orthopedics [address] [address] Raúl Suh MD MRSA nasal colonization (Primary Dx) 11/21/2024 10:30 AM EDT Lab Patient Walk-In [facility] Lab [address] [place] [phone] Raúl Suh MD Full Thickness tear of right supraspinatus tendon; Osteoarthritis of glenohumeral joint, right; Pre-op testing 11/21/2024 10:18 AM EDT - 11/21/2024 11:59 PM EDT Hospital Encounter [facility] CT Imaging [address] [place] [phone] Raúl Suh MD Full Thickness tear of right supraspinatus tendon; Osteoarthritis of glenohumeral joint, right; Pre-op testing Discharge Disposition: Home or Self Care 11/21/2024 10:18 AM EDT - 11/21/2024 11:59 PM EDT Hospital Encounter [facility] Respiratory Care [address] [place] [address] Raúl Suh MD Full Thickness tear of right supraspinatus tendon; Osteoarthritis of glenohumeral joint, right; Pre-op testing Discharge Disposition: Home or Self Care 11/21/2024 10:15 AM EDT - 11/21/2024 10:17 AM EDT Hospital Encounter [facility] Diagnostic Imaging [address] [place] [address] Raúl Suh MD Full Thickness tear of right supraspinatus tendon; Osteoarthritis of glenohumeral joint, right; Pre-op testing Discharge Disposition: Home or Self Care 11/21/2024 9:15 AM EDT Office Visit [facility] Orthopedics [address] [phone] Raúl Suh MD Full Thickness tear of right supraspinatus tendon (Primary Dx); Full thickness infraspinatus tendon tear, right; Partial tear subscapularis tendon, right, initial encounter; Partial tear of biceps tendon, Right; Osteoarthritis of AC (acromioclavicular) joint, Right; Osteoarthritis of glenohumeral joint, right; Rotator cuff arthropathy of right shoulder; Pre-op testing 11/21/2024 Travel 11/19/2024 10:00 AM EDT Office Visit [facility] Orthopedics [facility] [address] [place] [address] Dominic Oliva PA-C Full Thickness tear of right supraspinatus tendon (Primary Dx); Full thickness infraspinatus tendon tear, right; Partial tear subscapularis tendon, right, initial encounter; Partial tear of biceps tendon, Right; Osteoarthritis of AC (acromioclavicular) joint, Right; Osteoarthritis of glenohumeral joint, right 11/14/2024 Orders Only [facility] Orthopedics [facility] [address] [place] [address] Dominic Oliva PA-C Internal derangement of right shoulder; History of arthroscopic surgery of right shoulder; Partial tear of right supraspinatus tendon 10/25/2024 1:47 PM EDT Anesthesia Event [facility] Operating Room [address] [place] [address] Rogelio Weldon MD Harter, Adam 10/25/2024 1:45 PM EDT - 10/25/2024 3:00 PM EDT Surgery [facility] Operating Room [address] [place] [address] Anshul Banks MD (LT RELEASE, CARPAL TUNNEL) 10/25/2024 9:35 AM EDT - 10/25/2024 3:30 PM EDT Hospital Encounter [facility] Operating Room [address] [place] [address] Anshul Banks MD Discharge Disposition: Home or Self Care 10/25/2024 Travel 10/22/2024 2:42 PM EDT - 10/22/2024 11:59 PM EDT Hospital Encounter [facility] Diagnostic Imaging - [address] [place] [address] Dominic Oliva PA-C Right arm pain Discharge Disposition: Home or Self Care 10/22/2024 2:15 PM EDT Office Visit [facility] Orthopedics [facility] [address] [place] [address] Dominic Oliva PA-C Right arm pain (Primary Dx); Internal derangement of right shoulder; History of arthroscopic surgery of right shoulder; Partial tear of right supraspinatus tendon; Right shoulder pain from Last 3 Months Family History Medical History Relation Name Comments COPD Brother 1 Diabetes Brother 2 COPD Father High blood pressure Mother High blood pressure Other Relation Name Status Comments Brother 1 Alive Brother 2 Alive Father Mother Other Social History Tobacco Use Types Packs/Day [...] Date Francis rded Speak language other than Swazi at home Not on file 06/09/2023 Want [...] Description 01/27/2025 12:30 PM EDT Office Visit [facility] Orthopedics - [address] [address] Raúl Suh MD [address] [place] [address] Health Maintenance Due Date Last Done Comments CT Colonography 1964 Colonoscopy 1964 Colorectal Cancer Screening 1964 Diabetic Kidney Health Evalu ation (KED) 1964 FOBT/FIT 1964 Fit-DNA (Cologuard) 1964 Sigmoidoscopy 1964 Diabetic Eye Exam 1974 Depression Screening (12+) 1976 HIV Screening [...] history exists Hemoglobin A1C 10/25/2024 Influenza Vaccine (#1) 2025 2, 02/15/2021, 03/05/2020 Tobacco Cessation Counseling and Screening (12+) 01/10/2026 01/10/2025 Medical Devices Implanted Type Area Lime [employer]udge Kil[employer] Operator Device Identifier Shelf Expiration Date Model / Serial / Lot Glenosphere Std 36mm [id number] - [id number] Implanted:Qty: 1 on 12/17/2024 by Raúl Suh MD at [facility] IMPLANTS Right: Shoulder TORNIER [id number] 12/31/2028 [id number] / [id number] / Baseplt Lat +3mm 25mm [id number] - [id number] Implanted:Qty: 1 on 12/17/2024 by Raúl Suh MD at [facility] IMPLANTS Right: Shoulder TORNIER [id number] 08/08/2029 [id number] / [id number] / Insrt Rev Perf Hum Sys Sz 3/4 [id number] - [id number] Implanted:Qty: 1 on 12/17/2024 by Raúl Suh MD at [facility] IMPLANTS Right: Shoulder TORNIER [id number] 09/10/2027 [id number] / [id number] / Stem Hum Perf Sys Dz 3+ Ln Dwx3pl - [id number] Implanted:Qty: 1 on 12/17/2024 by Raúl Suh MD at [facility] IMPLANTS Right: Shoulder TORNIER [id number] 07/15/2029 [id number] / [id number] / Scr Cntrl Thd Post 6.5x30mm Wim041 - [id number] Implanted:Qty: 1 on 12/17/2024 by Raúl Suh MD at [facility] IMPLANTS Right: Shoulder TORNIER [id number] / / Scr Periph 5.0x18mm Ns [id number] - [id number] Implanted:Qty: 1 on 12/17/2024 by Raúl Suh MD at [facility] IMPLANTS Right: Shoulder TORNIER [id number] / / Scr Periph 5.0x22mm Ns [id number] - [id number] Implanted:Qty: 2 on 12/17/2024 by Raúl Suh MD at [facility] IMPLANTS Right: Shoulder TORNIER [id number] / / Scr Periph 5.0x26mm Ns Hmn166 - [id number] Implanted:Qty: 1 on 12/17/2024 by Raúl Suh MD at [facility] IMPLANTS Right: Shoulder TORNIER [id number] / / Ankle Fusion Left: Ankle Procedures [...] ANESTHESIA INTUBATION Routine 12/17/2024 11:13 AM EDT [place] ARTHROPLASTY GLENOHUMERAL JOINT TOTAL SHOULDER 12/17/2024 11:06 AM EDT Rotator cuff arthropathy of right shoulder Case Notes 0900Vanc in preop Special Needs MRSA screening positive-Vanc to be given preop TISSUE EXAM ([place]ET[place] AR) AP Routine 12/17/2024 10:48 AM EDT Rotator [...] GLUCOSE POC Routine 10/25/2024 2:47 PM EDT [place] NEUROPLASTY &/TRANSPOS MEDIAN NRV CARPAL TUNNE 10/25/2024 [...] is seen . Procedure Note Dominic Coe, - 01/11/2025 RIGHT SHOULDER HISTORY: Dislocation. FINDINGS: [...] - 99 mg/dL 12/17/2024 12:42 PM EDT [facility] Comment: In the event of poor peripheral blood flow, venous or arterial blood should be used due to the potential of erroneous results. Notified Nurse [facility] [id number] 12/17/2024 12:42 PM EDT [facility] Blood WHOLE BLOOD / Unknown 12/17/2024 12:41 PM EDT 12/17/2024 12:42 PM EDT Narrative [facility] - 12/17/2024 12:42 PM EDT Superintendent [facility] ID is - [id number] Raúl Suh MD POINT OF CARE TEST ORDERABLES Final Result [facility] [address] [place] [address], [facility] [phone] * AN SINGLE LUMEN INTUBATION (12/17/2024 11:13 [...] GROSS ONLY: GROSS DIAGNOSIS: Changes consistent with heeh-oo-qtuzqtoh osteoarthritis. 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 BLOOD [facility] TEST ORDERABLE S Final Result [facility] ([place]) [address] [phone] * Type and Screen (12/17/2024 8:50 AM EDT) ABO/Rh O POSITIVE 12/17/2024 8:34 AM EDT [facility] BLOOD [facility] ([place]) Antibody Screen NEGATIVE 12/17/2024 8:34 AM EDT [facility] BLOOD [facility] ([place]) HISTCHK HIST CHECK PERFORMED 12/17/2024 8:34 AM EDT [facility] ([place]) Blood Venipuncture / Unknown 12/17/2024 8:50 AM EDT 12/17/2024 9:08 AM EDT us Raúl Suh MD [facility] BLOOD [facility] TEST ORDERABLE S Edited Result - Final [facility] ([place]) [address] [place] [address], [facility] [phone] * CT upper extremity without contrast right [...] outlet narrowing. IMPRESSION: Degenerative changes as detailed. us Raúl Suh MD IMG CT ORDERABLES Final Resul t * ECG 12 lead (11/21/2024 10:34 AM EDT) VENTRICULAR RATE EKG/MIN 76 BPM GE MUSE ATRIAL RATE (MCT) 76 BPM GE MUSE [place] Interval 156 ms GE MUSE QRS-INTERVAL (MSEC) 92 ms GE MUSE QT Interval 396 ms GE MUSE QTC Interval 445 ms GE MUSE P [place] 40 degrees GE MUSE R AXIS (MCT) 56 degrees GE MUSE T Wave [place] 55 degrees GE MUSE [place] Diagnosis Normal sinus rhythm Nonspecific ST and [...] 10.8 K/ L 11/21/2024 10:56 AM EDT [facility] RBC 5.06 3.50 - 5.20 M/ L 11/21/2024 10:56 AM EDT [facility] Hemoglobin 14.4 11.7 - 15.8 GM/DL 11/21/2024 10:56 AM EDT [facility] Hematocrit 43.3 35.0 - 47.0 % 11/21/2024 10:56 AM EDT [facility] MCV 86 81 - 101 fL 11/21/2024 10:56 AM EDT [facility] MCH 28.5 27.0 - 34.0 pg 11/21/2024 10:56 AM EDT [facility] MCHC 33.3 32.0 - 36.0 GM/DL 11/21/2024 10:56 AM EDT [facility] RDW 13.9 11.5 - 14.5 % 11/21/2024 10:56 AM EDT [facility] Platelets 256 150 - 400 K/CU MM 11/21/2024 10:56 AM EDT [facility] MPV 8.6(L) 9.4 - 12.4 fL 11/21/2024 10:56 AM EDT [facility] Nucleated Red Blood Cell 0.0 0 - 0.2 % 11/21/2024 10:56 AM EDT [facility] NRBC Absolute <0.01 0 - 0.012 K/ul 11/21/2024 10:56 AM EDT [facility] Blood Venipuncture / Unknown 11/21/2024 10:31 AM EDT 11/21/2024 10:32 AM EDT Narrative [facility] - 11/21/2024 10:56 AM EDT [...] Blast? Flag noted Atypical Lymph flag noted Raúl Suh MD LAB BLOOD ORDERABLES Final Re sult Performing Organization Address [facility] Co de Phone Number [facility] [address] [phone] * (ABNORMAL) Manual Differential (11/21/2024 10:31 AM EDT) Total Counted 100 11/21/2024 10:56 AM EDT [facility] % Neutros (manual) 39 15 - 67 % 11/21/2024 10:56 AM EDT [facility] % Bands (manual) 0(L) 2 - 21 % 11/21/2024 10:56 AM EDT [facility] % Lymphs (manual) 32 10 - 50 % 11/21/2024 10:56 AM EDT [facility] % Monos (manual) 9 2 - 10 % 11/21/2024 10:56 AM EDT [facility] % Eos (manual) 20(H) 0 - 7 % 11/21/2024 10:56 AM EDT [facility] Platelet Estimate Adequate Adequate 11/21/2024 10:56 AM EDT [facility] ANC# 3.47 K/ L 11/21/2024 10:56 AM EDT [facility] Blood Venipuncture / Unknown 11/21/2024 10:31 AM EDT 11/21/2024 10:32 AM EDT Raúl Suh MD LAB BLOOD ORDERABLES Final Re sult Performing Organization Address City/[facility]/ZIP Co de Phone Number [facility] [address] [phone] * (ABNORMAL) MRSA Screen (11/21/2024 10:31 AM EDT) Pathologist [facility] MRSA by PCR [facility] MRSA Detected by PCR(A) MRSA Not Detected by PCR DEVICE ID9 11/21/2024 4:20 PM EDT [facility] Nasal BOTH ANTERIOR NARES / Unknown 11/21/2024 10:31 AM EDT 11/21/2024 10:32 AM EDT us Raúl Suh MD MICROBIOLOGY - GENERAL ORDERA BLES Final Result [facility] [address] [phone] * (ABNORMAL) Comprehensive metabolic panel (11/21/2024 10:31 AM EDT) Pathologist [facility] Sodium 137 136 - 145 meq/L 11/21/2024 11:13 AM EDT [facility] Potassium 3.9 3.5 - 5.1 meq/L 11/21/2024 11:13 AM EDT [facility] Chloride 103 98 - 107 meq/L 11/21/2024 11:13 AM EDT [facility] CO2 28 21 - 32 meq/L 11/21/2024 11:13 AM EDT [facility] Calcium 9.9 8.5 - 10.1 mg/dL 11/21/2024 11:13 AM EDT [facility] Glucose 138(H) 70 - 99 mg/dL 11/21/2024 11:13 AM EDT [facility] BUN 17 7 - 18 mg/dL 11/21/2024 11:13 AM EDT [facility] Creatinine 0.91 0.55 - 1.10 mg/dL 11/21/2024 11:13 AM EDT [facility] BUN/Creatinine 19 11/21/2024 11:13 AM EDT [facility] Albumin 3.9 3.4 - 5.0 g/dL 11/21/2024 11:13 AM EDT [facility] Alkaline Phosphatase 96 46 - 116 U/L 11/21/2024 11:13 AM EDT [facility] ALT 13 12 - 78 U/L 11/21/2024 11:13 AM EDT [facility] AST 20 15 - 37 U/L 11/21/2024 11:13 AM EDT [facility] Total Bilirubin 0.6 0.2 - 1.0 mg/dL 11/21/2024 11:13 AM EDT [facility] Protein, Total 8.2 6.4 - 8.2 gm/dL 11/21/2024 11:13 AM EDT [facility] Anion Gap 10(L) 11 - 11/21/2024 11:13 AM EDT [facility] A/G Ratio 0.9 11/21/2024 11:13 AM EDT [facility] Globulin 4.3 g/dL 11/21/2024 11:13 AM EDT [facility] Osmolality Calc 277.6 mOsm/kg 11:13 AM EDT [facility] eGFR (mL/min/1.73m2) >60 >=60 mL/min/1.7 3m2 11/21/2024 11:13 AM EDT [facility] Comment:ESTIMATED GFR IS NOT ACCURATE CREATININE CLEARANCE IN PREDICTING GLOMERULAR FILTRATION RATE. ESTIMATED GFR IS NOT APPLICABLE FOR DIALYSIS PATIENTS. Blood Venipuncture / Unknown 11/21/2024 10:31 AM EDT 11/21/2024 10:32 AM EDT us Raúl Suh MD LAB BLOOD ORDERABLES Final Re sult [facility] [address] [place] [address], [facility] [phone] * (ABNORMAL) Basic Metabolic Panel (10/25/2024 11:00 AM EDT) Sodium 140 136 - 145 meq/L 10/25/2024 11:32 AM EDT [facility] Potassium 4.2 3.4 - 5.1 meq/L 10/25/2024 11:32 AM EDT [facility] CO2 24 22 - 29 meq/L 10/25/2024 11:32 AM EDT [facility] Chloride 106 98 - 112 meq/L 10/25/2024 11:32 AM EDT [facility] Glucose 124(H) 82 - 115 mg/dL 10/25/2024 11:32 AM EDT [facility] BUN 19.1 9.8 - 20.1 mg/dL 10/25/2024 11:32 AM EDT [facility] Creatinine 0.85 0.57 - 1.11 mg/dL 10/25/2024 11:32 AM EDT [facility] BUN/Creatinine 22(H) 8 - 20 10/25/2024 11:32 AM EDT [facility] Calcium 10.4(H) 8.4 - 10.2 mg/dL 10/25/2024 11:32 AM EDT [facility] Anion Gap 14(H) 4 - 12 10/25/2024 11:32 AM EDT [facility] eGFR (mL/min/1.73m2) 79 >=60 mL/min/1.7 3m2 10/25/2024 11:32 AM EDT [facility] Osmolality Calc 283.1 mOsm/kg 11:32 AM EDT [facility] Blood Venipuncture / Unknown 10/25/2024 11:00 AM EDT 10/25/2024 11:13 AM EDT us Rogelio Weldon MD LAB BLOOD ORDERABLES Final Res ult [facility] [address] [phone] * US extremity non-vascular limited right (10/23/2024 [...] - Images obtained and saved on the [facility] Orthopedic ultrasound machine Dominic Oliva PA-C us Dominic Oliva PA-C IMG US ORDERABLES Final Resul t from Last 3 Months Additional Health Concerns Infection Onset Date Last Indicated MRSA (C) 11/21/2024 11/21/2024 Insurance MEDICARE PART A B CROSS/BLUE SHIELD Advance Directives For more information, please contact: [phone] * Full Code (Latest Code Status on File) Date Activated Date Inactivated Comments 12/17/2024 12:23 PM 12/17/2024 4:44 PM * Full Code Date Activated Date Inactivated Comments 12/17/2024 7:33 AM 12/17/2024 12:23 PM Care Teams Supervisor Heading Relationship Specialty Start Date End Date Abhishek Griggs MD [address] [place] [address] PCP - General Adolescent Medicine 10/25/24 Dominic Oliva PA-C [address] [place] [address] Physician Correctional Guard 10/01/24
[2025-01-12] MEDS: HYDROMORPHONE 2MG/ML SYRINGE 1 MG IV ×2 (15:56→16:14)
[2025-01-12] MEDS: LACTATED RINGERS 1000ML 500 ML 999 ML IV (16:32)
--- NOTE | 2025-01-12 16:43 | PC.NURSE ---
1637- 100mg ketamine given per MD Marko 1639- 50mg ketamine given per md marko 1640- 50mg ketamine given per md marko 1642- shoulder back in place per marko scott, sling reapplied 164- x-ray at bedside
--- NOTE | 2025-01-12 16:54 | XR_ITS ---
PROCEDURE INFORMATION: Exam: XR Right Shoulder Exam date and time: 01/12/2025 4:44 PM Age: 59 years old Clinical indication: Other: Post reduction images TECHNIQUE: Imaging protocol: Radiologic exam of the right shoulder. Views: 2 or more views. COMPARISON: CR XR SHOULDER RT MIN 2V 01/12/2025 4:08 PM FINDINGS: Bones/joints: The shoulder arthroplasty has been reduced. The humeral prosthesis and glenoid prosthesis are now aligned.. Anterior cervical fusion Soft tissues: Soft tissue swelling of the shoulder IMPRESSION: The shoulder arthroplasty has been reduced. The humeral prosthesis and glenoid prosthesis are now aligned..
[2025-01-12] MEDS: KETAMINE 50MG/1ML SYRINGE 200 MG IV (17:02)
--- NOTE | 2025-01-12 17:34 | PC.NURSE ---
patient sitting up on the ER stretcher. patient is alert and oriented. patient able to tell her name, where shes at and why she initially came to the ER. patient labile. patient family at bedside. siderails up x2.
--- NOTE | 2025-01-12 17:38 | PC.NURSE ---
patient quick to answer kee orientation questions, confusion comes and goes. will attempt PO challenge.
--- NOTE | 2025-01-12 17:39 | PC.NURSE ---
DR GUIDRY AT BEDSIDE TO REEVALUATE PT
--- NOTE | 2025-01-12 17:45 | PC.NURSE ---
Pt trialed off nasal cannula. O2 noted to decrease to 85%. o2 reapplied, o2 sat returned to 97%
--- NOTE | 2025-01-12 18:16 | PC.NURSE ---
patient trialed off oxygen again and patients oxygen saturation dropped to the mid 80's. reapplied oxygen at 2LNC. gave patient some water and crackers to PO challenge her. family at bedside. siderails up x2.
== END 2025-01-12 18:49 | disposition home or self-care (01) ==
PROVIDERS: Emergency Provider Student in an Organized Health Care Education/Training Program; PCP Internal Medicine Adolescent Medicine
DX: S43.014A Anterior dislocation of right humerus, initial encounter (principal); X58.XXXA Exposure to other specified factors, initial encounter
CPT/HCPCS: 23655; 73030; 96361; 96374; 99152; 99153; 99285; J1171; J7120

== ENCOUNTER 2025-03-26 08:09 | Outpatient (CLI) | payer BC, MEDICARE, SELFPAY ==
--- NOTE | 2025-03-26 08:30 | XR_ITS ---
FINAL REPORT CLINICAL HISTORY: CHRONIC LEFT FOOT AND LEFT ANKLE PAIN COMPARISON: 05/09/2023 FINDINGS: AP, oblique, and lateral views of the left ankle were obtained. Postoperative changes from tibiotalar and talocalcaneal fusion. Distal fibula has been resected. There is bony fusion of the tibiotalar joint. Incomplete bony fusion of the talocalcaneal joint. One of the 2 screws in the calcaneus appears to have retracted slightly since the prior exam. There is no acute fracture. No acute soft tissue abnormality. IMPRESSION: No acute osseous abnormality of the left ankle. Postoperative changes as above. One of the 2 screws in the calcaneus appears to have slightly retracted. Reviewed, Interpreted and Dictated by Juana Chapman MD Transcribed by Areli Houston Authenticated and . [facility]
--- NOTE | 2025-03-26 08:30 | XR_ITS ---
FINAL REPORT CLINICAL HISTORY: CHRONIC LEFT FOOT AND LEFT ANKLE PAIN COMPARISON: 11/02/2023 FINDINGS: AP, oblique and lateral views of the left foot were obtained. There is old fracture deformity of the fifth metatarsal shaft. There is no acute fracture or dislocation. Multijoint degenerative disease is noted. Postoperative changes in the hindfoot noted. Soft tissues are unremarkable. IMPRESSION: Degenerative changes without acute osseous abnormality of the left foot. Reviewed, Interpreted and Dictated by Juana Chapman MD Transcribed by Areli Houston Authenticated and [facility]
[2025-03-26 08:33] LABS: Hematocrit 40.0 % (37.0-47.0); Hemoglobin 12.4 g/dL (12.2-16.2); Immature Granulocytes % 0.1 %; Mean Corpuscular HGB Conc 31.0 g/dL (31.8-35.4); Mean Corpuscular Hemoglobin 25.8 pg (27.0-31.2); Mean Corpuscular Volume 83.2 fl (81-99); Nucleated Red Blood Cells % 0 %; Platelet Count 231 K/mm3 (142-424); Red Blood Count 4.81 M/mm3 (4.20-5.40); Red Cell Distribution Width-SD 45.5 fL; White Blood Count 7.0 K/mm3 (4.8-10.8)
[2025-03-26 09:22] LABS: Cholesterol 111 mg/dl (140-200); HDL Cholesterol 51 mg/dl (40-60); Magnesium 1.9 mg/dl (1.6-2.3); Triglycerides 175 mg/dl (30-150)
[2025-03-26 09:32] LABS: Alanine Aminotransferase 11 U/L (12-78); Albumin Level 4.2 g/dl (3.5-5.0); Albumin/Globulin Ratio 1.2 (1.1-1.8); Alkaline Phosphatase 108 U/L (38-126); Anion Gap 9.1 mEq/L (5-15); Aspartate Amino Transferase 26 U/L (14-36); Bilirubin,Total 0.6 mg/dl (0.2-1.3); Blood Urea Nitrogen 17 mg/dl (7-17); Calcium 9.8 mg/dl (8.4-10.2); Carbon Dioxide 28 mmol/L (22.0-30.0); Chloride 103 mmol/L (98-107); Creatinine,Serum 0.80 mg/dl (0.52-1.04); Estimated Glomerular Filt Rate 73 ml/min (>60); GFR (African American) 89 ML/MIN (>60); Globulin 3.5 g/dL (1.3-3.2); Glucose 135 mg/dl (74-100); Potassium 4.1 mmoL/L (3.5-5.1); Sodium 136 mmol/L (136-145); Total Protein,Serum 7.7 g/dl (6.3-8.2)
[2025-03-26 09:38] LABS: C-Reactive Protein 3.1 mg/L (0-4)
[2025-03-26 12:06] LABS: Hemoglobin A1C 7.0 % (4.0-6.0)
== END 2025-03-26 23:59 | disposition home or self-care (01) ==
LOC: RAD 08:13
PROVIDERS: Nurse Practitioner Family; PCP Nurse Practitioner Family; Visit Provider Nurse Practitioner Family
DX: M05.79 Rheumatoid arthritis with rheumatoid factor of multiple sites without organ or systems involvement (principal); R53.83 Other fatigue; Z79.899 Other long term (current) drug therapy; M19.072 Primary osteoarthritis, left ankle and foot; T84.223A Displacement of internal fixation device of bones of foot and toes, initial encounter
CPT/HCPCS: 36415; 73610; 73630; 80053; 80061; 80074; 82043; 82570; 83036; 83735; 85025; 85651; 86140; 86480